=== PATIENT | female | born 1985 | race Caucasian/White ===

== ENCOUNTER 2021-07-29 08:10 | Emergency (ER) | payer OTHER, SELFPAY ==
[2021-07-29 08:14] VITALS: BP 125/78; PULSE 96; RESP 16; TEMP 37.1; O2SAT 99
--- NOTE | 2021-07-29 08:52 | ED.URI ---
HPI - URI/Sore Throat General Chief Complaint: Upper Respiratory Infection Stated Complaint: sore throat Time Seen by Provider: 07/29/21 08:25 Source: patient and RN notes reviewed Mode of arrival: ambulatory Limitations: no limitations History of Present Illness HPI Narrative: Patient presents today with a 2-day history of body aches, sore throat, nasal congestion. Denies fever, cough, sick contacts. She has been taking NyQuil without relief. History of tonsillectomy and adenoidectomy. Denies flu or COVID-19 vaccine. She currently rates her sore throat 03/11. MD elicited complaint: sore throat Related Data Home Medications Medication Instructions Recorded Confirmed citalopram 40 mg PO DAILY 08/27/19 07/29/21 Allergies Allergy/AdvReac Type Severity Reaction Status Date / Time fluconazole Allergy Intermediate Rash Verified 08/27/19 13:13 prednisone Allergy Intermediate Other Verified 08/27/19 13:13 sulfamethizole Allergy Unknown Rash Verified 08/27/19 13:13 sulfamethoxazole Allergy Unknown rash Verified 08/27/19 13:13 trimethoprim Allergy Unknown Rash Verified 08/27/19 13:13 Review of Systems Review of Systems: CONSTITUTIONAL: Denies fever, chills, or sweats.+ Body aches EYES: Denies visual changes, redness, or discharge. ENT: Denies rhinorrhea, or otalgia.+ Sore throat, congestion CARDIOVASCULAR: Denies chest pain, palpitations, or edema. RESPIRATORY: Denies cough or dyspnea. GASTROINTESTINAL: Denies abdominal pain, nausea, vomiting, or diarrhea. GENITOURINARY: Denies dysuria or hematuria. SKIN: Denies rash, itching, or wounds. MUSCULOSKELETAL: Denies back pain, joint pain, or myalgia. NEUROLOGIC: Denies headache, numbness, tingling, or weakness. PSYCH: Denies depression or anxiety. [facility] Surgical History Surgical History (Updated 07/29/21 @ 08:54 by Sandrita Orta, SHANEL, WILL) H/O adenoidectomy Hx of tonsillectomy Family History Family History Grandparent Family history of lung cancer Mother Family history of malignant neoplasm of breast in first degree relative Social History Social History Smoking status: Never smoker Alcohol intake: never Comments At time of signature, I have reviewed and agree with nursing past medical, surgical, social and family history unless otherwise noted. Please see nursing chart for further information. There is no relevant family history pertinent to the presenting complaint Exam Narrative: GENERAL: Mildly ill-appearing, well-nourished, and in no acute distress. HEAD: Normocephalic, atraumatic. EYES: EOMI. No redness or drainage. Conjunctivae normal. ENT: Mucous membranes pink and moist. Nares clear. No rhinorrhea. TMs normal bilaterally. Throat mildly erythematous without edema or exudate. Uvula midline. NECK: Normal AROM. Supple. Bilateral anterior cervical chain lymphadenopathy. CHEST: No respiratory distress. Clear to auscultation. HEART: Regular rate and rhythm. No murmur appreciated. Normal peripheral pulses. EXTREMITIES: Normal range of motion. No edema. SKIN: Warm, dry, no rash. Capillary refill normal. Normal skin turgor. NEURO: No focal deficits. Alert and oriented x3. Gait steady. PSYCH: Normal affect. No signs of depression or anxiety. Course Vital Signs Vital signs: Vital Signs Temperature 98.7 F 07/29/21 08:14 Pulse Rate 96 07/29/21 08:14 Respiratory Rate 16 07/29/21 08:14 Blood Pressure 125/78 07/29/21 08:14 Pulse Oximetry 99 07/29/21 08:14 Temperature 98.7 F 07/29/21 08:14 Pulse Rate 96 07/29/21 08:14 Respiratory Rate 16 07/29/21 08:14 Blood Pressure 125/78 07/29/21 08:14 Pulse Oximetry 99 07/29/21 08:14 Reviewed. Pt has been instructed to follow up with her PCP regarding her elevated blood pressure today. MDM - URI/Sore Throat Differential Diagnosis Differential diagno
== END 2021-07-29 09:08 | disposition home or self-care (01) ==
PROVIDERS: Emergency Provider Nurse Practitioner; PCP Nurse Practitioner Family
DX: J02.9 Acute pharyngitis, unspecified (principal); F41.9 Anxiety disorder, unspecified; F32.A Depression, unspecified
CPT/HCPCS: 87081; 87880; 99213; G0463

== ENCOUNTER 2023-03-31 16:41 | Emergency (ER) | payer OTHER, SELFPAY ==
[2023-03-31 16:48] VITALS: BP 110/65; PULSE 89; RESP 18; TEMP 37.1; O2SAT 98
--- NOTE | 2023-03-31 17:24 | ED.URI ---
HPI - URI/Sore Throat General Chief Complaint: Upper Respiratory Infection Stated Complaint: Sore Throat Source: patient and RN notes reviewed History of Present Illness HPI Narrative: 37-year-old female presents to urgent care with complaints of sore throat x5 days. Patient reports allergy symptoms that she is taking cetirizine for. Denies any fevers, chills, vomiting, chest pain, shortness of breath, ear pain, congestion, or headache. Patient has taken Tylenol for symptoms. Related Data Home Medications Medication Instructions Recorded Confirmed citalopram 40 mg tablet 40 mg PO DAILY 08/27/19 03/31/23 cetirizine 10 mg capsule 10 mg PO DAILY 03/31/23 03/31/23 Allergies Allergy/AdvReac Type Severity Reaction Status Date / Time fluconazole Allergy Intermediate Rash Verified 03/31/23 17:10 prednisone Allergy Intermediate Other Verified 03/31/23 17:10 sulfamethizole Allergy Unknown Rash Verified 03/31/23 17:10 sulfamethoxazole Allergy Unknown rash Verified 03/31/23 17:10 trimethoprim Allergy Unknown Rash Verified 03/31/23 17:10 Review of Systems Review of Systems: Pertinent positives and pertinent negatives per HPI. [facility] Surgical History Surgical History (Updated 07/29/21 @ 08:54 by Sandrita Orta, [facility], ) H/O adenoidectomy Hx of tonsillectomy Family History Family History (Reviewed 07/29/21 @ 08:54 by Sandrita Orta, [facility], ) Grandparent Family history of lung cancer Mother Family history of malignant neoplasm of breast in first degree relative Social History Social History (Reviewed 07/29/21 @ 08:54 by Sandrita Orta, [facility], ) Smoking status: Never smoker Alcohol intake: never Comments At the time of my signature, I reviewed and agree with the nursing past medical, surgical, social, and family history. There is no relevant family history pertinent to the patient complaint. Exam Narrative: GENERAL: This is a well-nourished, well-developed patient, in no apparent distress. HEAD: normocephalic, atraumatic. EYES: Sclera clear/white. Vision is grossly intact. EARS: External ears normal, auditory canals clear and without drainage, TMs normal without perforation. Hearing grossly intact. NOSE: External nose normal with no obvious nasal discharge, nares without redness, no rhinorrhea. THROAT: Mucous membranes moist, posterior pharynx with NECK: Neck supple, non-tender with mild lymphadenopathy CARDIOVASCULAR: Regular rate RESPIRATORY: No respiratory distress SKIN: warm, intact with no suspicious lesions or rash, good texture and turgor. NEURO: awake, alert, and oriented to person, place and time. There were no obvious focal neurologic abnormalities. EXTREMITIES: No clubbing, cyanosis, or edema. No joint tenderness, effusion, or edema noted. BACK: Nontender without deformity or crepitus. No flank tenderness. Course Course Level of Care: Express Care Visit Vital Signs Vital signs: Vital Signs Temperature 98.8 F 03/31/23 16:48 Pulse Rate 89 03/31/23 16:48 Respiratory Rate 18 03/31/23 16:48 Blood Pressure 110/65 03/31/23 16:48 Pulse Oximetry 98 03/31/23 16:48 Oxygen Delivery Room Air 03/31/23 16:48 Temperature 98.8 F 03/31/23 16:48 Pulse Rate 89 03/31/23 16:48 Respiratory Rate 18 03/31/23 16:48 Blood Pressure 110/65 03/31/23 16:48 Pulse Oximetry 98 03/31/23 16:48 Oxygen Delivery Room Air 03/31/23 16:48 Reviewed MDM - URI/Sore Throat MDM Narrative Medical decision making narrative: Rapid strep is negative in the office; however we will send to the lab for confirmation; there is a small percentage chance that it can come back positive; if it is, we will call you in 2-3days; and your prescription will be call in to your pharmacy. However, there is NO indication for antibiotic at this time. -Increase your fluids and Vitamin C. -Oral rinses such as: Salt water gargles and/or may use topical anesthetic (eg. Chloraseptic spray) or l
== END 2023-03-31 17:35 | disposition home or self-care (01) ==
PROVIDERS: Emergency Provider Nurse Practitioner Family; PCP Nurse Practitioner Family
DX: J02.9 Acute pharyngitis, unspecified (principal)
CPT/HCPCS: 87081; 87880; 99213; G0463

== ENCOUNTER 2023-09-28 15:03 | Emergency (ER) | payer OTHER, SELFPAY ==
--- NOTE | 2023-09-28 15:08 | ED.BACK ---
HPI - Back Pain/Injury General Chief Complaint: Back Pain/Injury Stated Complaint: lower back pain Time Seen by Provider: 09/28/23 15:08 Source: patient Mode of arrival: ambulatory Limitations: no limitations History of Present Illness HPI Narrative: Patient is a 38-year-old female who presents with low back pain that started Monday. Patient denies any injury to back. Patient has been taking 800 mg of ibuprofen 3 times a day with no relief. Patient states it is now painful to walk. Patient denies any loss of bowel or bladder, denies any numbness, tingling or weakness to legs. Related Data Home Medications Medication Instructions Recorded Confirmed citalopram 40 mg tablet 40 mg PO DAILY 08/27/19 03/31/23 cetirizine 10 mg capsule 10 mg PO DAILY 03/31/23 03/31/23 Strattera 09/28/23 montelukast 10 mg tablet mg 09/28/23 Allergies Allergy/AdvReac Type Severity Reaction Status Date / Time fluconazole Allergy Intermediate Rash Verified 09/28/23 15:06 sulfamethizole Allergy Unknown Rash Verified 09/28/23 15:06 sulfamethoxazole Allergy Unknown rash Verified 09/28/23 15:06 trimethoprim Allergy Unknown Rash Verified 09/28/23 15:06 Review of Systems Review of Systems: All systems reviewed & are unremarkable except as noted in HPI and below Constitutional: Constitutional: Denies body ache(s), Denies chills, Denies fatigue, Denies fever(s), Denies headache(s), Denies malaise and Denies weakness Eyes: Eyes: Denies blurry vision, Denies irritation and Denies loss of vision ENT: Denies otalgia, Denies headache(s), Denies nasal discharge, Denies sinus pain and Denies sore throat Cardiovascular: Cardiovascular: Denies chest pain, Denies irregular heart rhythm and Denies dyspnea Respiratory: Respiratory: Denies dyspnea Gastrointestinal: Gastrointestinal: Denies abdominal pain, Denies melena, Denies hematochezia, Denies diarrhea, Denies nausea and Denies vomiting Musculoskeletal: Musculoskeletal: Reports back pain, Denies myalgias and Denies arthralgias Integumentary/Breasts: Skin/Breast: Denies pruritus and Denies rash Neurologic: Denies headache(s), Denies loss of vision and Denies weakness Psychiatric: Psychiatric: Reports no additional psychiatric complaints Endocrine: Endocrine: Denies fatigue PMFSH Surgical History Surgical History H/O adenoidectomy Hx of tonsillectomy Family History Family History Grandparent Family history of lung cancer Mother Family history of malignant neoplasm of breast in first degree relative Social History Social History Smoking status: Never smoker Alcohol intake: never Comments At time of signature, agree with nursing past medical, surgical, social and family history. There is no relevant family history pertinent to the presenting complaint. Exam Const: General: cooperative, healthy appearing, comfortable, no acute distress and well nourished Nutritional Appearance: well nourished Orientation/consciousness: patient oriented x3 Limitations: no limitations HENMT: Head: normal to inspection, normocephalic and atraumatic Ears: hearing grossly normal bilaterally and external ears normal Face/Nose/Sinus: Normal external nose present, normal facial exam and face symmetric Face and sinus: normal facial exam and face symmetric Mouth: Yes lip normal Eyes: General: appearance normal, both eyes and all related structures Alignment and Position: alignment normal and position normal Periorbital: periorbital findings normal Eyelids: eyelids normal Pupils: Equal, round and reactive pupils present EOM: EOMs intact bilaterally Neck: Neck: normal visual inspection, full ROM and supple Chest: Chest palpation & inspection: normal inspection of the chest Resp: Effort & Inspection: normal respiratory effort and able to
[2023-09-28 15:10] VITALS: BP 123/77; PULSE 88; RESP 16; TEMP 36.8; O2SAT 99
== END 2023-09-28 16:35 | disposition home or self-care (01) ==
PROVIDERS: Emergency Provider Nurse Practitioner Family; PCP Nurse Practitioner Family
DX: M54.16 Radiculopathy, lumbar region (principal); Z79.899 Other long term (current) drug therapy
CPT/HCPCS: 99213; G0463

== ENCOUNTER 2024-05-12 10:29 | Emergency (ER) | payer OTHER, SELFPAY ==
--- NOTE | 2024-05-12 10:31 | ED.URI ---
HPI - URI/Sore Throat General Chief Complaint: Upper Respiratory Infection Stated Complaint: throat pain Time Seen by Provider: 05/12/24 10:31 Source: patient Mode of arrival: ambulatory Limitations: no limitations History of Present Illness HPI Narrative: Shauna is a 38-year-old female patient presenting to the clinic today with complaints of a sore throat x 1 days. She reports she has had nasal congestion, body aches, and cough. History of T&A. MD elicited complaint: cough, sore throat, nasal congestion and other (Body aches) Related Data Home Medications Medication Instructions Recorded Confirmed citalopram 40 mg tablet 40 mg PO DAILY 08/27/19 05/12/24 Allergies Allergy/AdvReac Type Severity Reaction Status Date / Time fluconazole Allergy Intermediate Rash Verified 05/12/24 10:36 sulfamethizole Allergy Intermediate Rash Verified 05/12/24 10:36 sulfamethoxazole Allergy Intermediate rash Verified 05/12/24 10:36 trimethoprim Allergy Intermediate Rash Verified 05/12/24 10:36 Review of Systems Review of Systems: Pertinent positives per HPI. Patient denies any fever, chills, rash, headache, visual changes, dizziness, shortness of breath, chest pain, palpitations, nausea, vomiting, diarrhea, constipation, abdominal pain, or any urinary issues. PMFSH Surgical History Surgical History H/O adenoidectomy Hx of tonsillectomy Family History Family History Grandparent Family history of lung cancer Mother Family history of malignant neoplasm of breast in first degree relative Social History Social History Smoking status: Never smoker Alcohol intake: never Comments At the time of my signature, I reviewed and agree with the nursing past medical, surgical, social, and family history. There is no relevant family history pertinent to the patient complaint. Exam Narrative: General: Well-developed, well nourished, in no apparent distress Head: Normocephalic, atraumatic Eyes: Pupils equally round and reactive to light bilaterally, EOM intact, sclera and conjunctive clear, no discharge, lids normal Ears: TMs intact and congested, ear canals clear, no drainage, grossly hearing normal. Nose: Nares patent, clear nasal discharge, no inflammation, no sinus tenderness. Mouth: Oral pharynx red without lesions or masses, good dentition, MMM. Neck: Supple, trachea midline, enlargement of anterior cervical nodes, no thyroid masses or goiter palpable. Cardio: Regular rate and rhythm, s1 and s2 normal, no murmur appreciated. Resp: Clear to auscultation bilaterally, no rhonchi, rales, wheezing or rubs Course Course Emergency Course: Portions of this record may have been created with voice recognition software. Level of Care: Express Care Visit Vital Signs Vital signs: Vital signs reviewed MDM - URI/Sore Throat MDM Narrative Medical decision making narrative: At the time of visit patient is resting comfortably on the exam table. Patient appears to be nontoxic. Labs: Strep test was obtained and is positive in the clinic today. Plan: I suspect patient has strep pharyngitis. Supportive measures were discussed with the patient and they voiced understanding discharge instructions and agrees to treatment plan. Return precautions reviewed Differential Diagnosis Differential diagnosis: Likely upper respiratory infection, otitis media, sinusitis, viral infection, bronchitis, influenza, pharyngitis and other Discharge Plan Discharge Clinical Impression: Strep pharyngitis Patient Disposition: Home, Self-Care Condition: Stable Instructions: Antibiotic Form, Strep Throat (ED) Additional Instructions: Strep test was positive in the clinic today. Change her toothbrush in 24 hours after initiation of the antibiotics Take pre
[2024-05-12 10:41] VITALS: BP 115/77; PULSE 79; RESP 16; TEMP 37.1; O2SAT 99
== END 2024-05-12 10:56 | disposition home or self-care (01) ==
PROVIDERS: Emergency Provider Nurse Practitioner Family; PCP Nurse Practitioner Family
DX: J02.0 Streptococcal pharyngitis (principal); F41.9 Anxiety disorder, unspecified; F32.A Depression, unspecified
CPT/HCPCS: 87880; 99213; G0463

== ENCOUNTER → 2024-06-10 13:57 | Outpatient (CLI) | payer OTHER, SELFPAY ==
--- NOTE | ~2024-06-10 | XR_ITS ---
EXAMINATION: XR lumbar spine 2-3V DATE: 06/10/2024 14:41 INDICATION: Low back pain. TECHNIQUE: 3 views of lumbar spine were obtained. COMPARISON: None. FINDINGS: There is 3 degrees dextrocurvature of lumbar spine. Vertebral body heights are normal. Ther e is mildly decreased disc height at L5-S1. There are endplate osteophyte at multiple levels. There i s multilevel mild to moderate facet joint osteoarthritis. Surgical clips in the right upper quadrant are likely from cholecystectomy. Bilateral tubal ligation clips are noted. The left-sided clip is in abnormal position. IMPRESSION: 1. Mild lumbar spondylosis. Reviewed, dictated and finalized at location A. IMPRESSION: 1. Mild lumbar spondylosis.
--- NOTE | ~2024-06-10 | XR_ITS ---
EXAMINATION: XR hip RT min 2V DATE: 06/10/2024 14:56 INDICATION: Right hip pain. TECHNIQUE: 2 views of right hip were obtained. COMPARISON: None. FINDINGS: Alignment is normal. No fracture. Right hip joint space is normal. A right sided tube ligat ion clip is noted. IMPRESSION: 1. Normal right hip. Reviewed, dictated and finalized at location A. IMPRESSION: 1. Normal right hip.
== END ==
PROVIDERS: PCP Nurse Practitioner Family; Visit Provider Nurse Practitioner Family
DX: M43.06 Spondylolysis, lumbar region (principal)
CPT/HCPCS: 72100; 73502

== ENCOUNTER 2025-02-23 10:53 | Emergency (ER) | payer OTHER, SELFPAY ==
--- NOTE | ~2025-02-23 | XR_ITS ---
CHEST RADIOGRAPH, PA AND LATERAL CLINICAL HISTORY: wheezing, cough for 4 days, smoker . COMPARISON: None available TECHNIQUE: PA and lateral views of the chest. FINDINGS The cardiomediastinal silhouette is unremarkable. The lungs are clear. Visualized osseous structures and soft tissues are unremarkable. IMPRESSION: No focal infiltrate or effusion. Reviewed, dictated and finalized at location A.
--- OUTSIDE RECORDS SUMMARY | 2025-02-23 10:56 | XMS_ITS | Encounter Summary ---
Author Name [facility] [place] [facility] [place] Address [address] [place] [address] Support Name Relationship Address Phone FUAD CHRISTINE Next of Kin Unknown CHRISTINE MERIDA Emergency Contact Unknown Insurance Providers: All historical and current Section Date Range: From patient's date of to the date document was created. This section includes the names of all active insurance providers for the patient. Insurance Provider Type of Coverage Plan Name Start of Policy Coverage End of Policy Coverage Group Number Member ID Insurance Provider's Telephone Number Policy Montoya's Name Patient's Relationship to Policy Montoya MEDICAID (WNR) MEDICAID MEDIC AID Aug 02, 2015 MEDICAI D [id number] STACIE JENNIFER PATIENT [facility] (WNR) MEDICAID MEDIC AID [facility] (WNR) Dec 01, 2023 MEDICAI D [id number] STACIE JENNIFER PATIENT Selected Encounter This section includes the information on record at [place] for the Encounter. Date/Time Encounter Type Encounter Description Reason Provider Source Aug 25, 2024 07:45 AM SELF-MGMT EDUC/TRAIN 5-8 PT SUBSTANCE USE DISORDR GRP ICD-10-CM F10.90 Alcohol use, unspecified, uncomplicated KEYUR COKER Encounter Template Text not used by [place] Assessments - Encounter Diagnoses This section includes the primary and secondary diagnoses documented for the Encounter. Date/Time Primary/Secondary Diagnosis Diagnosis Name Provider Source Aug 25, 2024 08:09 AM PRIMARY Alcohol use, unspecified, uncomplicated JOSE COKER [facility] Plan of Treatment: Future Appointments (+ 6 months) and Future Tests (+/- 45 days) The Plan of Treatment section includes future care activities for the patient from all [place] [facility]. This section includes future appointments and future orders which are active, pending or scheduled. Future Appointments This section includes appointments that were scheduled to occur 6 months from the date of the Encounter, up to a maximum of 20 appointments. The data comes from all [place] treatment [facility]. Appointment Date/Time Appointment Type Appointme nt Facility Name Sep 10, 2024 12:30 PM AMBULATORY - PSYCHIATRY [facility] Sep 12, 2024 06:00 PM AMBULATORY - PSYCHIATRY [facility] Sep 17, 2024 06:00 PM AMBULATORY - PSYCHIATRY [facility] Sep 19, 2024 06:00 PM AMBULATORY - PSYCHIATRY [facility] Sep 26, 2024 06:00 PM AMBULATORY - PSYCHIATRY [facility] Oct 01, 2024 02:00 PM AMBULATORY - NONE [facility] Oct 09, 2024 03:00 PM AMBULATORY - MEDICINE [facility] Oct 16, 2024 01:00 PM AMBULATORY - PSYCHIATRY [facility] Oct 30, 2024 01:00 PM AMBULATORY - PSYCHIATRY [facility] Nov 27, 2024 01:00 PM AMBULATORY - PSYCHIATRY [facility] Dec 04, 2024 01:00 PM AMBULATORY - PSYCHIATRY [facility] Dec 11, 2024 01:00 PM AMBULATORY - PSYCHIATRY [facility] Dec 18, 2024 01:00 PM AMBULATORY - PSYCHIATRY [facility] Dec 25, 2024 01:00 PM AMBULATORY - PSYCHIATRY [facility] February 05, 2025 09:30 AM AMBULATORY - PSYCHIATRY [facility] Lab Results: +/- 30 days of the encounter This section includes the Chemistry and Hematology Lab Results on record with [place] for the patient. Radiology Reports and Pathology Reports are provided separately, in subsequent sections. Lab Results This section contains the Chemistry/Hematology Results that were resulted 30 days before or 30 daysafter the date of the Encounter. Date/Time Source Result Type Result - Unit Interpretation Reference Range Specimen Type Comment Sep 03, 2024 12:00 PM [facility] URINE DRUG SCREEN (STL) URINE Specimen Type: URINE Comment: The cut-off value for Fentanyl was laboratory developed and its performance characteristics confirmed by the [facility] laboratory thru method comparison with reference laboratory and medication chart review. The laboratory is regulated under CLIA as qualified to perform high-complexity testing. Fentanyl is used for clinical purposes in conjunction with other laboratory tests. Ordering Provider: DANIEL GOMEZ Report Released Date/Time: Sep 02, 2024 08:27 PM Reporting Lab: [facility] [phone] Performing Lab: [facility] [address] ETHANOL <10.0 mg/dL 0-9 AMPHET/METHAMPHETAMINE Negative ng/mL COCAINE METABOLITES Negative ng/mL BENZODIAZEPINES (STL) Negative ng/mL CANNABINOIDS POSITIVE ng/mL METHADONE Negative ng/mL OPIATES Negative ng/mL CREATININE URINE/OTHERS 110.1 mg/dL H 47.0 -110.0 OXYCODONE (CEBNO-HNO-MQ) Negative ng/mL BUPRENORPHINE (STL-PB-MA) Negative ng/mL FENTANYL (STL-PB) Negative ng/mL Aug 25, 2024 02:03 PM [facility] URINE DRUG SCREEN (STL) URINE Specimen Type: URINE Comment: The cut-off value for Fentanyl was laboratory developed and its performance characteristics confirmed by the [facility] laboratory thru method comparison with reference laboratory and medication chart review. The laboratory is regulated under CLIA as qualified to perform high-complexity testing. Fentanyl is used for clinical purposes in conjunction with other laboratory tests. Ordering Provider: DANIEL GOMEZ Report Released Date/Time: Aug 24, 2024 07:24 PM Reporting Lab: [facility] [address] [facility] [address] Performing Lab: [facility] [address] [facility] [address] ETHANOL Negative mg/dL 0-20 AMPHET/METHAMPHETAMINE Negative ng/mL COCAINE METABOLITES Negative ng/mL BENZODIAZEPINES (STL) Negative ng/mL CANNABINOIDS POSITIVE ng/mL METHADONE Negative ng/mL OPIATES Negative ng/mL CREATININE URINE/OTHERS 39.0 mg/dL L 47-11 0 OXYCODONE (VELOU-OJU-YB) Negative ng/mL BUPRENORPHINE (STL-PB-MA) Negative ng/mL FENTANYL (STL-PB) Negative ng/mL Aug 20, 2024 07:13 AM [facility] URINALYSIS W/ CX REFLEX (STL-PB) URINE Specim en Type: URINE No comment entered. Ordering Provider: DANIEL GOMEZ Report Released Date/Time: Aug 19, 2024 11:04 AM Reporting Lab: [facility] [place] [address] Performing Lab: [facility] [place] [address] URINE COLOR Yellow Yellow U.BILIRUBIN Negative mg/dL Negative U.PH 6.0 5.0-8.0 URINE WBC/HPF 3 /[HPF] 0-5 URINE RBC/HPF 3 /[HPF] 0-5 APPEARANCE Clear Clear U.NITRITE Negative mg/dL Negative SQUAMOUS EPITH. 9 /[HPF] 0-5 MUCUS FEW /[LPF] Negative-Rare URN.GLUCOSE Normal mg/dL Negative URN.PROTEIN 20 mg/dL H URN.UROBILINOGEN Normal mg/dL Normal URN.BLOOD Negative mg/dL Negative-Trace URN.KETONES Negative mg/dL Negative-Trac e URN.LEUK.EST. 75 mg/dL H Negative-Trace URN.SPECIFIC GRAVITY 1.028 Aug 19, 2024 10:08 AM [facility] URINALYSIS (STL-PB) URINE Specimen Type: URIN E No comment entered. Ordering Provider: DANIEL GOMEZ Report Released Date/Time: Aug 16, 2024 03:45 PM Reporting Lab: [facility] [place] [address] Performing Lab: [facility] [place] [address] URINE COLOR Yellow Yellow U.BILIRUBIN Negative mg/dL Negative U.PH 6.0 5.0-8.0 URINE WBC/HPF 14 /[HPF] H 0-5 URINE RBC/HPF 5 /[HPF] 0-5 APPEARANCE Turbid Clear U.NITRITE Negative mg/dL Negative SQUAMOUS EPITH. 9 /[HPF] 0-5 MUCUS MOD /[LPF] Negative-Rare URN.GLUCOSE Normal mg/dL Negative URN.PROTEIN 30 mg/dL H URN.UROBILINOGEN 2 mg/dL H Normal URN.BLOOD Negative mg/dL Negative-Trace URN.KETONES Trace mg/dL Negative-Trace URN.LEUK.EST. 500 mg/dL H Negative-Trace URN.SPECIFIC GRAVITY 1.035 H Aug 19, 2024 10:08 AM [facility] TEST URINE (MA-STL) URINE Specimen Type: URINE No comment entered. Ordering Provider: DANIEL GOMEZ Report Released Date/Time: Aug 16, 2024 03:45 PM Reporting Lab: [facility] [phone] Performing Lab: [facility] [phone] Qualitative Test NEG NEGAT URBAN Aug 19, 2024 10:08 AM [facility] URINE DRUG SCREEN (STL) URINE Specimen Type: URINE Comment: The cut-off value for Fentanyl was laboratory developed and its performance characteristics confirmed by the [facility] laboratory thru method comparison with reference laboratory and medication chart review. The laboratory is regulated under CLIA as qualified to perform high-complexity testing. Fentanyl is used for clinical purposes in conjunction with other laboratory tests. Ordering Provider: DANIEL GOMEZ Report Released Date/Time: Aug 16, 2024 03:45 PM Reporting Lab: [facility] [phone] Performing Lab: [facility] [address] ETHANOL Negative mg/dL 0-20 AMPHET/METHAMPHETAMINE Negative ng/mL COCAINE METABOLITES Negative ng/mL BENZODIAZEPINES (STL) Negative ng/mL CANNABINOIDS POSITIVE ng/mL METHADONE Negative ng/mL OPIATES POSITIVE ng/mL CREATININE URINE/OTHERS 266.1 mg/dL H 47.0 -110.0 OXYCODONE (THNPY-REY-EG) Negative ng/mL BUPRENORPHINE (STL-PB-MA) Negative ng/mL FENTANYL (STL-PB) Negative ng/mL Aug 19, 2024 10:00 AM [facility] CBC BLOOD Specimen Type: BLOOD No comment entered. Ordering Provider: DANIEL GOMEZ Report Released Date/Time: Aug 16, 2024 03:45 PM Reporting Lab: [facility] [phone] Performing Lab: [facility] [place] [phone] WBC 12.7 10*3/uL H 3.6-11.2 RBC 4.19 10*6/uL 3.60-5.00 HGB 12.7 g/dL 11.0-14.9 HCT 37.7 32.6-43.4 MCV 90.0 fL 80.0-100.0 MCH 30.3 pg 27.0-34.0 MCHC 33.7 g/dL 33.0-36.0 PLT 418 10*3/uL H 150-400 MPV 10.2 fL 7.5-11.2 RDW 12.0 11.8-15.1 LYMPHOCYTES, AUTO % 21 MONOCYTES, AUTO % 7 NEUTROPHILS, AUTO % 63 EOSINOPHILS, AUTO % 7 BASOPHILS, AUTO % 1 LYMPHOCYTES, ABSOLUTE 2.69 10*3/uL 0.77- 4.50 MONOCYTES, ABSOLUTE 0.90 10*3/uL H 0.19-0. 80 NEUTROPHILS, ABSOLUTE 8.03 10*3/uL H 2.10- 8.00 EOSINOPHILS, ABSOLUTE 0.88 10*3/uL H 0.00- 0.60 BASOPHILS, ABSOLUTE 0.09 10*3/uL 0.00-0. 20 Aug 19, 2024 09:59 AM [facility] COMPREHENSIVE METABOLIC PANEL PLASMA Specimen Type: PLASMA Comment: No hemolysis noted. Ordering Provider: DANIEL GOMEZ Report Released Date/Time: Aug 16, 2024 03:45 PM Reporting Lab: [facility] [address] Performing Lab: [facility] [place] [phone] CREATININE 0.75 mg/dL 0.60-1.10 UREA NITROGEN 12.0 mg/dL 9.0-25.0 GLUCOSE 99 mg/dL 72-99 SODIUM 139 meq/L 136-145 POTASSIUM 4.2 meq/L 3.5-5.0 CHLORIDE 108 meq/L H 98-107 CARBON DIOXIDE 23 meq/L 22-31 CALCIUM 8.8 mg/dL 8.4-10.4 PROTEIN 6.5 g/dL 6.0-8.6 ALBUMIN 3.8 g/dL 3.4-5.0 TOTAL BILIRUBIN 0.1 mg/dL L 0.2-1.2 ALKALINE PHOSPHATASE 69 U/L 40-150 AST/SGOT 19 U/L 5-34 ALT/SGPT 25 U/L 8-40 EGFR (CKD-EPI 2020) 104.44 >60 Aug 19, 2024 09:59 AM [facility] PT/INR NEW (STL-MA) PLASMA Specimen Type: PLAS MA No comment entered. Ordering Provider: DANIEL GOMEZ Report Released Date/Time: Aug 16, 2024 03:45 PM Reporting Lab: [facility] [place] [address] Performing Lab: [facility] [place] [address] PROTIME 9.4 s 9.4-12.5 INR VALUE 0.8 {INR} Aug 19, 2024 09:59 AM [facility] ETHANOL SERUM/PLASMA (STL) PLASMA Specimen Typ e: PLASMA Comment: No hemolysis noted. Ordering Provider: DANIEL GOMEZ Report Released Date/Time: Aug 16, 2024 03:45 PM Reporting Lab: [facility] [phone] Performing Lab: [facility] [phone] ETHANOL SERUM/PLASMA (STL) <10.0 mg/dL 0 -10 Aug 19, 2024 09:59 AM [facility] GGT GAMMA-GT PLASMA Specimen Type: PLASM A No comment entered. Ordering Provider: DANIEL GOMEZ Report Released Date/Time: Aug 16, 2024 03:45 PM Reporting Lab: [facility] [address] [place] [address] Performing Lab: [facility] [address] [place] [address] GGT GAMMA-GT 14 [IU]/L 12-64 Aug 19, 2024 09:59 AM [facility] MAGNESIUM PLASMA Specimen Type: PLASM A Comment: No hemolysis noted. Ordering Provider: DANIEL GOMEZ Report Released Date/Time: Aug 16, 2024 03:45 PM Reporting Lab: [facility] [phone] Performing Lab: [facility] [phone] MAGNESIUM 2.1 mg/dL 1.6-2.6 Aug 19, 2024 09:59 AM [facility] CPK SERUM Specimen Type: SERUM No comment entered. Ordering Provider: DANIEL GOMEZ Report Released Date/Time: Aug 16, 2024 03:45 PM Reporting Lab: [facility] [phone] Performing Lab: [facility] [phone] CPK 37 U/L 29-168 Aug 19, 2024 09:59 AM [facility] HEP C Ab HCV Ab (STL) SERUM Specimen Type: SE RUM No comment entered. Ordering Provider: DANIEL GOMEZ Report Released Date/Time: Aug 16, 2024 03:45 PM Reporting Lab: [facility] [address] [place] [address] Performing Lab: [facility] [address] [place] [address] HEP C Ab HCV Ab (STL) Nonreactive Nonrea ctive Aug 19, 2024 09:59 AM [facility] HIV COMBO FOURTH GENERATION (STL) SERUM Speci men Type: SERUM No comment entered. Ordering Provider: DANIEL GOMEZ Report Released Date/Time: Aug 16, 2024 03:45 PM Reporting Lab: [facility] [address] [facility] [address] Performing Lab: [facility] [address] [facility] [address] HIV COMBO FOURTH GENERATION (STL) Nonreactive Nonreactive Encounter Notes: All associated encounter notes This section contains the clinical notes associated to the Encounter. Date/Time Encounter Note(s) Provider Source Aug 25, 2024 07:45 AM PSYCHIATRY GROUP C GURPREET NOTE: LOCAL TITLE: [facility] PSYCHIATRY GROUP NOTE STL STANDARD TITLE: PSYCHIATRY GROUP COUNSELING NOTE DATE OF NOTE: AUG 25, 2024@07:45 ENTRY DATE: AUG 25, 2024@08:05:18 AUTHOR: ANTONIETTA COKER EXP COSIGNER: URGENCY: STATUS: COMPLETED Discipline: Nursing Group Time: 729 Group Topics: Rules Review Group Content: Reviewed THANH Contract of Agreement (including the addendum), Agreement of Responsibility to Administer Self Medication, and Contract of Respect. Discussed specifically, while smoking to stay on the grass and keep the road clear for car traffic entering and leaving [facility] grounds. Also reminded veterans to keep cell phones in their pockets during group time. Veterans had an opportunity to ask questions and seek clarification. Encouraged veterans to inquire with staff if they had questions in the future. Group Goals: Achieved Patient Response: Actively Engaged Number of Patients in Group: / ANTONIETTA COKER RN REGISTERED NURSE Signed: 08/25/2024 08:16 ANTONIETTA COKER [facility]
--- OUTSIDE RECORDS SUMMARY | 2025-02-23 10:56 | XMS_ITS | Encounter Summary ---
Author Name [facility] [place] [facility] [place] Address [address] [place] [address] Support Name Relationship Address Phone FUAD CHRISTINE [...] MEDIC AID Aug 02, 2015 MEDICAI D [id number] [phone] STACIE AYEJENNIFER PATIENT [facility] (WNR) MEDICAID MEDIC AID [facility] (WNR) Dec 01, 2023 MEDICAI D [id number] STACIE JENNIFER PATIENT Selected Encounter This section includes the information on record at [place] for the Encounter. Date/Time Encounter Type Encounter Description Reason Provider Source Sep 03, 2024 07:00 PM SELF-MGMT EDUC/TRAIN 5-8 PT SUBSTANCE USE DISORDR GRP ICD-10-CM F12.20 Cannabis dependence, uncomplicated MUGOYA,ROSEMA RY K IHE Encounter Template Text not used by [facility] Assessments - Encounter Diagnoses This section includes the primary and secondary diagnoses documented for the Encounter. Date/Time Primary/Secondary Diagnosis Diagnosis Name Provider Source Sep 03, 2024 09:20 PM PRIMARY Cannabis dependence, uncomplicated MUGOYA,ROSEMAR Y K [facility] Sep 03, 2024 09:20 PM SECONDARY Opioid use, unspecified, uncomplicated MUGOYA,ROSEMAR Y K [facility] Plan of Treatment: Future Appointments (+ 6 months) and Future Tests (+/- 45 days) The Plan of Treatment section includes future care activities for the patient from [facility] [place] [facility] This section includes future appointments and future orders which are active, pending or scheduled. Future Appointments This section includes appointments that were scheduled to occur 6 months from the date of the Encounter, up to a maximum of 20 appointments. The data comes from all [place] treatment [facility]. Appointment Date/Time Appointment Type Appointme nt Facility Name Sep 10, 2024 12:30 PM AMBULATORY - PSYCHIATRY [facility] Sep 12, 2024 06:00 PM AMBULATORY - PSYCHIATRY [facility] Sep 17, 2024 06:00 PM AMBULATORY - PSYCHIATRY [facility] Sep 19, 2024 06:00 PM AMBULATORY - PSYCHIATRY [facility] Sep 26, 2024 06:00 PM AMBULATORY - PSYCHIATRY [facility] Oct 01, 2024 02:00 PM AMBULATORY - NONE [facility] Oct 09, 2024 03:00 PM AMBULATORY - MEDICINE [facility] Oct 16, 2024 01:00 PM AMBULATORY - PSYCHIATRY [facility] Oct 30, 2024 01:00 PM AMBULATORY - PSYCHIATRY [facility] Nov 27, 2024 01:00 PM AMBULATORY - PSYCHIATRY [facility] Dec 04, 2024 01:00 PM AMBULATORY - PSYCHIATRY [facility] Dec 11, 2024 01:00 PM AMBULATORY - PSYCHIATRY [facility] Dec 18, 2024 01:00 PM AMBULATORY - PSYCHIATRY [facility] Dec 25, 2024 01:00 PM AMBULATORY - PSYCHIATRY [facility] February 05, 2025 09:30 AM AMBULATORY - PSYCHIATRY [facility] Lab Results: +/- 30 days of the [...] Type Comment Sep 03, 2024 12:[address] [facility] URINE DRUG SCREEN (STL) URINE Specimen Type: URINE Comment: The cut-off value for Fentanyl was laboratory developed and its performance characteristics confirmed by the [facility] laboratory thru method comparison with reference laboratory and medication chart review. The laboratory is regulated under CLIA as qualified to perform high-complexity testing. Fentanyl is used for clinical purposes in conjunction with other laboratory tests. Ordering Provider: DANIEL GOMEZ Report Released Date/Time: Sep 02, 2024 08:27 PM Reporting Lab: [facility] [id number] Performing Lab: [facility] [phone] ETHANOL <10.0 mg/dL 0-9 AMPHET/METHAMPHETAMINE Negative ng/mL COCAINE METABOLITES Negative ng/mL BENZODIAZEPINES (STL) Negative ng/mL CANNABINOIDS POSITIVE ng/mL METHADONE Negative ng/mL OPIATES Negative ng/mL CREATININE URINE/OTHERS 110.1 mg/dL H 47.0 -110.0 OXYCODONE ([id number]) Negative ng/mL BUPRENORPHINE (STL-PB-MA) Negative ng/mL FENTANYL (STL-PB) Negative ng/mL Aug 25, 2024 02:[address] [facility] URINE DRUG SCREEN (STL) URINE Specimen Type: URINE Comment: The cut-off value for Fentanyl was laboratory developed and its performance characteristics confirmed by the [facility] laboratory thru method comparison with reference laboratory and medication chart review. The laboratory is regulated under CLIA as qualified to perform high-complexity testing. Fentanyl is used for clinical purposes in conjunction with other laboratory tests. Ordering Provider: DANIEL GOMEZ Report Released Date/Time: Aug 24, 2024 07:24 PM Reporting Lab: [facility] [address] [facility] [phone] Performing Lab: [facility] [address] [phone] ETHANOL Negative mg/dL 0-20 AMPHET/METHAMPHETAMINE Negative ng/mL COCAINE METABOLITES Negative ng/mL BENZODIAZEPINES (STL) Negative ng/mL CANNABINOIDS POSITIVE ng/mL METHADONE Negative ng/mL OPIATES Negative ng/mL CREATININE URINE/OTHERS 39.0 mg/dL L 47-11 0 OXYCODONE ([id number]) Negative ng/mL BUPRENORPHINE (STL-PB-MA) Negative ng/mL FENTANYL (STL-PB) Negative ng/mL Aug 20, 2024 07:[address] [facility] URINALYSIS W/ CX REFLEX (STL-PB) URINE Specim en Type: URINE No comment entered. Ordering Provider: DANIEL GOMEZ Report Released Date/Time: Aug 19, 2024 11:04 AM Reporting Lab: [facility] [place] [address] Performing Lab: [facility] [place] [address] URINE COLOR Yellow Yellow U.BILIRUBIN Negative mg/dL [...] GRAVITY 1.028 Aug 19, 2024 10:[address] [facility] URINALYSIS (STL-PB) URINE Specimen Type: URIN E No comment entered. Ordering Provider: DANIEL GOMEZ Report Released Date/Time: Aug 16, 2024 03:45 PM Reporting Lab: [facility] [place] [address] Performing Lab: [facility] [place] [phone] URINE COLOR Yellow Yellow U.BILIRUBIN Negative mg/dL [...] 1.035 H Aug 19, 2024 10:[address] [facility] TEST URINE (MA-STL) URINE Specimen Type: URINE No comment entered. Ordering Provider: DANIEL GOMEZ Report Released Date/Time: Aug 16, 2024 03:45 PM Reporting Lab: [facility] [address] Performing Lab: [facility] [phone] Qualitative Test NEG NEGAT URBAN Aug 19, 2024 10:[address] [facility] URINE DRUG SCREEN (STL) URINE Specimen Type: URINE Comment: The cut-off value for Fentanyl was laboratory developed and its performance characteristics confirmed by the [facility] laboratory thru method comparison with reference laboratory and medication chart review. The laboratory is regulated under CLIA as qualified to perform high-complexity testing. Fentanyl is used for clinical purposes in conjunction with other laboratory tests. Ordering Provider: DANIEL GOMEZ Report Released Date/Time: Aug 16, 2024 03:45 PM Reporting Lab: [facility] [address] Performing Lab: [facility] [address] ETHANOL Negative mg/dL 0-20 AMPHET/METHAMPHETAMINE Negative ng/mL COCAINE METABOLITES Negative ng/mL BENZODIAZEPINES (STL) Negative ng/mL CANNABINOIDS POSITIVE ng/mL METHADONE Negative ng/mL OPIATES POSITIVE ng/mL CREATININE URINE/OTHERS 266.1 mg/dL H 47.0 -110.0 OXYCODONE ([id number]) Negative ng/mL BUPRENORPHINE (STL-PB-MA) Negative ng/mL FENTANYL (STL-PB) Negative ng/mL Aug 19, 2024 10:00 AM [facility] CBC BLOOD Specimen Type: BLOOD No comment entered. Ordering Provider: DANIEL GOMEZ Report Released Date/Time: Aug 16, 2024 03:45 PM Reporting Lab: [facility] [phone] Performing Lab: [facility] [address] WBC 12.7 10*3/uL H 3.6-11.2 RBC 4.19 [...] 0.00-0. 20 Aug 19, 2024 09:[address] [facility] COMPREHENSIVE METABOLIC PANEL PLASMA Specimen Type: PLASMA Comment: No hemolysis noted. Ordering Provider: DANIEL GOMEZ Report Released Date/Time: Aug 16, 2024 03:45 PM Reporting Lab: [facility] [address] Performing Lab: [facility] [address] CREATININE 0.75 mg/dL 0.60-1.10 UREA NITROGEN 12.0 [...] 104.44 >60 Aug 19, 2024 09:[address] [facility] PT/INR NEW (STL-MA) PLASMA Specimen Type: PLAS MA No comment entered. Ordering Provider: DANIEL GOMEZ Report Released Date/Time: Aug 16, 2024 03:45 PM Reporting Lab: [facility] [place] [address] Performing Lab: [facility] [place] [address] PROTIME 9.4 s 9.4-12.5 INR VALUE 0.8 {INR} Aug 19, 2024 09:[address] [facility] ETHANOL SERUM/PLASMA (STL) PLASMA Specimen Typ e: PLASMA Comment: No hemolysis noted. Ordering Provider: DANIEL GOMEZ Report Released Date/Time: Aug 16, 2024 03:45 PM Reporting Lab: [facility] [place] [address] Performing Lab: [facility] [place] [address] ETHANOL SERUM/PLASMA (STL) <10.0 mg/dL 0 -10 Aug 19, 2024 09:[address] [facility] GGT GAMMA-GT PLASMA Specimen Type: PLASM A No comment entered. Ordering Provider: DANIEL GOMEZ Report Released Date/Time: Aug 16, 2024 03:45 PM Reporting Lab: [facility] [address] [facility] [address] Performing Lab: [facility] [address] [facility] [address] GGT GAMMA-GT 14 [IU]/L 12-64 Aug 19, 2024 09:[address] [facility] MAGNESIUM PLASMA Specimen Type: PLASM A Comment: No hemolysis noted. Ordering Provider: DANIEL GOMEZ Report Released Date/Time: Aug 16, 2024 03:45 PM Reporting Lab: [facility] [address] Performing Lab: [facility] [phone] MAGNESIUM 2.1 mg/dL 1.6-2.6 Aug 19, 2024 09:59 AM [facility] CPK SERUM Specimen Type: SERUM No comment entered. Ordering Provider: DANIEL GOMEZ Report Released Date/Time: Aug 16, 2024 03:45 PM Reporting Lab: [facility] [address] Performing Lab: [facility] [phone] CPK 37 U/L 29-168 Aug 19, 2024 09:[address] [facility] HEP C Ab HCV Ab (STL) SERUM Specimen Type: SE RUM No comment entered. Ordering Provider: DANIEL GOMEZ Report Released Date/Time: Aug 16, 2024 03:45 PM Reporting Lab: [place] [id number] [facility] [address] Performing Lab: [address] [address] HEP C Ab HCV Ab (STL) Nonreactive Nonrea ctive Aug 19, 2024 09:[address] [facility] HIV COMBO FOURTH GENERATION (STL) SERUM Speci men Type: SERUM No comment entered. Ordering Provider: DANIEL GOMEZ Report Released Date/Time: Aug 16, 2024 03:45 PM Reporting Lab: [facility] [address] [facility] [address] Performing Lab: [facility] [address] [facility] [address] HIV COMBO FOURTH GENERATION (STL) Nonreactive Nonreactive Encounter Notes: All associated encounter notes This section contains the clinical notes associated to the Encounter. Date/Time Encounter Note(s) Provider Source Sep 03, 2024 09:00 PM PSYCHIATRY GROUP C GURPREET NOTE: LOCAL TITLE: [facility] PSYCHI[facility]RY GROUP NOTE STL STANDARD TITLE: PSYCHIATRY GROUP COUNSELING NOTE DATE OF NOTE: SEP 03, 2024@21:00 ENTRY DATE: SEP 03, 2024@21:01:45 AUTHOR: JED MONTERO EXP COSIGNER: URGENCY: STATUS: COMPLETED Discipline: Nursing Group Time: Group Topic: Substance Abuse Group Content: was one of ( Twenty-Three) 23 who attended this evening' wrap-up group. All the veterans were thanked for their courage in coming into the program and were also thanked for their service. Random questions were answered, and unit rules were reiterated. Serenity prayer was said by those wishing to participate and snacks were given out. Group Goal: The goal of wrap up group is to end the day on a positive note, share and reflect on the day's events. Emphasized the role daily structure plays in their lives. Goal achieved. Group Response: Actively engaged. Number of Patients Attending Group:23 Diagnosis: ESTELA /es/ OLIVER SOFIA,RN Registered Nurse, [address] Signed: 09/03/2024 21:24 JED MONTERO Adrian MARTINEZ ASA
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
--- OUTSIDE RECORDS SUMMARY | 2025-02-23 10:56 | XMS_ITS | Encounter Summary ---
Author Name [facility] [place] [facility] [place] [facility] [place] Address [address] [place] [address] Support Name Relationship Address Phone [employer] CHRISTINE Next of Kin Unknown CHRISTINE MERIDA Emergency Contact Unknown [phone] Insurance Providers: All historical and current Section [...] MEDIC AID Aug 02, 2015 MEDICAI D [id number] [phone] STACIE JENNIFER PATIENT [facility] (WNR) MEDICAID MEDIC AID [facility] (WNR) Dec 01, 2023 MEDICAI D [id number] STACIE JENNIFER PATIENT Selected Encounter This section includes the information on record at [place] for the Encounter. Date/Time Encounter Type Encounter Description Reason Provider Source Sep 04, 2024 09:00 PM SELF-MGMT EDUC/TRAIN 5-8 PT SUBSTANCE USE DISORDR GRP ICD-10-CM F12.20 Cannabis dependence, uncomplicated MUGOYA,ROSEMA RY K IHE Encounter Template Text not used by [facility] Assessments - Encounter Diagnoses This section includes the primary and secondary diagnoses documented for the Encounter. Date/Time Primary/Secondary Diagnosis Diagnosis Name Provider Source Sep 04, 2024 10:23 PM PRIMARY Cannabis dependence, uncomplicated MUGOYA,ROSEMAR Y K [facility] Sep 04, 2024 10:23 PM SECONDARY Opioid use, unspecified, uncomplicated MUGOYA,ROSEMAR Y K [facility] Plan of Treatment: Future Appointments (+ 6 months) and Future Tests (+/- 45 days) The Plan of Treatment section includes future care activities for the patient [facility] [place] [facility] This section includes future appointments and future orders which are active, pending or scheduled. Future Appointments This section includes appointments that were scheduled to occur 6 months from the date of the Encounter, up to a maximum of 20 appointments. The data comes from all [place] [facility]. Appointment Date/Time Appointment Type Appointme nt Facility Name Sep 10, 2024 12:30 PM AMBULATORY - PSYCHIATRY [facility] Sep 12, 2024 06:00 PM AMBULATORY - PSYCHIATRY [facility] Sep 17, 2024 06:00 PM AMBULATORY - PSYCHIATRY [facility] Sep 19, 2024 06:00 PM AMBULATORY - PSYCHIATRY [facility] Sep 26, 2024 06:00 PM AMBULATORY - PSYCHIATRY [facility] Oct 01, 2024 02:00 PM AMBULATORY - NONE [facility] Oct 09, 2024 03:00 PM AMBULATORY - MEDICINE [facility] Oct 16, 2024 01:00 PM AMBULATORY - PSYCHIATRY [facility] Oct 30, 2024 01:00 PM AMBULATORY - PSYCHIATRY [facility] Nov 27, 2024 01:00 PM AMBULATORY - PSYCHIATRY [facility] Dec 04, 2024 01:00 PM AMBULATORY - PSYCHIATRY [facility] Dec 11, 2024 01:00 PM AMBULATORY - PSYCHIATRY [facility] Dec 18, 2024 01:00 PM AMBULATORY - PSYCHIATRY [facility] Dec 25, 2024 01:00 PM AMBULATORY - PSYCHIATRY [facility] February 05, 2025 09:30 AM AMBULATORY - PSYCHIATRY [facility] Lab Results: +/- 30 days of the encounter This section includes the Chemistry and Hematology Lab Results on record with [place] for the patient. Radiology Reports and Pathology Reports are provided separately, in subsequent sections. Lab Results This section contains the Chemistry/Hematology Results that were resulted 30 days before or 30 daysafter the date of the Encounter. Date/Time Source Result Type Result - Unit Interpretation Reference Range Specimen Type Comment Sep 03, 2024 12:00 PM [facility] URINE DRUG SCREEN (STL) URINE Specimen Type: URINE Comment: The cut-off value for Fentanyl was laboratory developed and its performance characteristics confirmed by the [facility] laboratory thru method comparison with reference laboratory and medication chart review. The laboratory is regulated under CLIA as qualified to perform high-complexity testing. Fentanyl is used for clinical purposes in conjunction with other laboratory tests. Ordering Provider: DANIEL GOMEZ Report Released Date/Time: Sep 02, 2024 08:27 PM Reporting Lab: [facility] [id number] Performing Lab: [facility] [address] ETHANOL <10.0 mg/dL 0-9 AMPHET/METHAMPHETAMINE Negative ng/mL COCAINE METABOLITES Negative ng/mL BENZODIAZEPINES (STL) Negative ng/mL CANNABINOIDS POSITIVE ng/mL METHADONE Negative ng/mL OPIATES Negative ng/mL CREATININE URINE/OTHERS 110.1 mg/dL H 47.0 -110.0 OXYCODONE ([id number]) Negative ng/mL BUPRENORPHINE (STL-PB-MA) Negative ng/mL FENTANYL (STL-PB) Negative ng/mL Aug 25, 2024 02:03 PM [facility] URINE DRUG SCREEN (STL) URINE Specimen Type: URINE Comment: The cut-off value for Fentanyl was laboratory developed and its performance characteristics confirmed by the [facility] laboratory thru method comparison with reference laboratory and medication chart review. The laboratory is regulated under CLIA as qualified to perform high-complexity testing. Fentanyl is used for clinical purposes in conjunction with other laboratory tests. Ordering Provider: DANIEL GOMEZ Report Released Date/Time: Aug 24, 2024 07:24 PM Reporting Lab: [facility] [address] [facility] [address] Performing Lab: [facility] [address] [facility] [address] ETHANOL Negative mg/dL 0-20 AMPHET/METHAMPHETAMINE Negative ng/mL COCAINE METABOLITES Negative ng/mL BENZODIAZEPINES (STL) Negative ng/mL CANNABINOIDS POSITIVE ng/mL METHADONE Negative ng/mL OPIATES Negative ng/mL CREATININE URINE/OTHERS 39.0 mg/dL L 47-11 0 OXYCODONE ([id number]) Negative ng/mL BUPRENORPHINE (STL-PB-MA) Negative ng/mL FENTANYL (STL-PB) Negative ng/mL Aug 20, 2024 07:13 AM [facility] URINALYSIS W/ CX REFLEX (STL-PB) URINE Specim en Type: URINE No comment entered. Ordering Provider: DANIEL GOMEZ Report Released Date/Time: Aug 19, 2024 11:04 AM Reporting Lab: [facility] [place] [address] Performing Lab: [facility] [place] [address] URINE COLOR Yellow Yellow U.BILIRUBIN Negative mg/dL [...] GRAVITY 1.028 Aug 19, 2024 10:08 AM [facility] URINALYSIS (STL-PB) URINE Specimen Type: URIN E No comment entered. Ordering Provider: DANIEL GOMEZ Report Released Date/Time: Aug 16, 2024 03:45 PM Reporting Lab: [facility] [place] [address] Performing Lab: [facility] [place] [id number] URINE COLOR Yellow Yellow U.BILIRUBIN Negative mg/dL [...] 1.035 H Aug 19, 2024 10:08 AM [facility] TEST URINE (MA-STL) URINE Specimen Type: URINE No comment entered. Ordering Provider: DANIEL GOMEZ Report Released Date/Time: Aug 16, 2024 03:45 PM Reporting Lab: [facility] [address] Performing Lab: [facility] [address] Qualitative Test NEG NEGAT URBAN Aug 19, 2024 10:08 AM [facility] URINE DRUG SCREEN (STL) URINE Specimen Type: URINE Comment: The cut-off value for Fentanyl was laboratory developed and its performance characteristics confirmed by the [facility] laboratory thru method comparison with reference laboratory and medication chart review. The laboratory is regulated under CLIA as qualified to perform high-complexity testing. Fentanyl is used for clinical purposes in conjunction with other laboratory tests. Ordering Provider: DANIEL GOMEZ Report Released Date/Time: Aug 16, 2024 03:45 PM Reporting Lab: [facility] [address] Performing Lab: [facility] [address] ETHANOL Negative mg/dL 0-20 AMPHET/METHAMPHETAMINE Negative ng/mL COCAINE METABOLITES Negative ng/mL BENZODIAZEPINES (STL) Negative ng/mL CANNABINOIDS POSITIVE ng/mL METHADONE Negative ng/mL OPIATES POSITIVE ng/mL CREATININE URINE/OTHERS 266.1 mg/dL H 47.0 -110.0 OXYCODONE ([id number]) Negative ng/mL BUPRENORPHINE (STL-PB-MA) Negative ng/mL FENTANYL (STL-PB) Negative ng/mL Aug 19, 2024 10:00 AM [facility] CBC BLOOD Specimen Type: BLOOD No comment entered. Ordering Provider: DANIEL GOMEZ Report Released Date/Time: Aug 16, 2024 03:45 PM Reporting Lab: [facility] [phone] Performing Lab: [facility] [phone] WBC 12.7 10*3/uL H 3.6-11.2 RBC 4.19 [...] 0.00-0. 20 Aug 19, 2024 09:59 AM [facility] COMPREHENSIVE METABOLIC PANEL PLASMA Specimen Type: PLASMA Comment: No hemolysis noted. Ordering Provider: DANIEL GOMEZ Report Released Date/Time: Aug 16, 2024 03:45 PM Reporting Lab: [facility] [address] Performing Lab: [facility] [address] CREATININE 0.75 mg/dL 0.60-1.10 UREA NITROGEN 12.0 [...] 104.44 >60 Aug 19, 2024 09:59 AM [facility] PT/INR NEW (STL-MA) PLASMA Specimen Type: PLAS MA No comment entered. Ordering Provider: DANIEL GOMEZ Report Released Date/Time: Aug 16, 2024 03:45 PM Reporting Lab: [facility] [place] [address] Performing Lab: [facility] [place] [address] PROTIME 9.4 s 9.4-12.5 INR VALUE 0.8 {INR} Aug 19, 2024 09:59 AM [facility] ETHANOL SERUM/PLASMA (STL) PLASMA Specimen Typ e: PLASMA Comment: No hemolysis noted. Ordering Provider: DANIEL GOMEZ Report Released Date/Time: Aug 16, 2024 03:45 PM Reporting Lab: [facility] [place] [address] Performing Lab: [facility] [place] [address] ETHANOL SERUM/PLASMA (STL) <10.0 mg/dL 0 -10 Aug 19, 2024 09:59 AM [facility] GGT GAMMA-GT PLASMA Specimen Type: PLASM A No comment entered. Ordering Provider: DAINEL GOMEZ Report Released Date/Time: Aug 16, 2024 03:45 PM Reporting Lab: [facility] [address] [facility] [address] Performing Lab: [facility] [address] [facility] [address] GGT GAMMA-GT 14 [IU]/L 12-64 Aug 19, 2024 09:59 AM [facility] MAGNESIUM PLASMA Specimen Type: PLASM A Comment: No hemolysis noted. Ordering Provider: DANIEL GOMEZ Report Released Date/Time: Aug 16, 2024 03:45 PM Reporting Lab: [facility] [address] Performing Lab: [facility] [address] MAGNESIUM 2.1 mg/dL 1.6-2.6 Aug 19, 2024 09:59 AM [facility] CPK SERUM Specimen Type: SERUM No comment entered. Ordering Provider: DANIEL GOMEZ Report Released Date/Time: Aug 16, 2024 03:45 PM Reporting Lab: [facility] [address] Performing Lab: [facility] [phone] CPK 37 U/L 29-168 Aug 19, 2024 09:59 AM [facility] HEP C Ab HCV Ab (STL) SERUM Specimen Type: SE RUM No comment entered. Ordering Provider: DANIEL GOMEZ Report Released Date/Time: Aug 16, 2024 03:45 PM Reporting Lab: [place] [id number] [facility] [address] Performing Lab: [address] [address] HEP C Ab HCV Ab (STL) Nonreactive Nonrea ctive Aug 19, 2024 09:59 AM [facility] HIV COMBO FOURTH GENERATION (STL) SERUM Speci men Type: SERUM No comment entered. Ordering Provider: DANIEL GOMEZ Report Released Date/Time: Aug 16, 2024 03:45 PM Reporting Lab: [facility] [address] [facility] [address] Performing Lab: [facility] [address] [facility] [address] HIV COMBO FOURTH GENERATION (STL) Nonreactive Nonreactive Encounter Notes: All associated encounter notes This section contains the clinical notes associated to the Encounter. Date/Time Encounter Note(s) Provider Source Sep 04, 2024 09:00 PM PSYCHIATRY GROUP C GURPREET NOTE: LOCAL TITLE: [facility]RY GROUP NOTE STL STANDARD TITLE: PSYCHIATRY GROUP COUNSELING NOTE DATE OF NOTE: SEP 04, 2024@21:00 ENTRY DATE: SEP 04, 2024@22:19:57 AUTHOR: JED MONTERO EXP COSIGNER: URGENCY: STATUS: COMPLETED Discipline: Nursing Group Time: Group Topic: Substance Abuse Group Content: was one of ( Twenty[place]) 22 who attended this evening' wrap-up group. All the veterans were thanked for their courage in coming into the program and were also thanked for their service. All the veterans endorsed a positive aspect from today's program. Random questions were answered, and unit rules [...] Response: Actively engaged. Number of Patients Attending Group:22 Diagnosis: ESTELA /es/ OLIVER SOFIA,RN Registered Nurse, [address] [facility] Signed: 09/04/2024 22:25 JED MONTERO Adrian MARTINEZ ASA
--- OUTSIDE RECORDS SUMMARY | 2025-02-23 10:56 | XMS_ITS | Encounter Summary ---
Author Name [facility] [place] Organization [facility] [place] Address [address] [place] [address] Support Name Relationship Address Phone FUAD CHRISTINE [...] MEDIC AID Aug 02, 2015 MEDICAI D [id number] [phone] STACIE AYEJENNIFER PATIENT [facility] (WNR) MEDICAID MEDIC AID [facility] (WNR) Dec 01, 2023 MEDICAI D [id number] STACIE JENNIFER PATIENT Selected Encounter This section includes the information on record at [place] for the Encounter. Date/Time Encounter Type Encounter Description Reason Provider Source Sep 01, 2024 09:00 PM SELF-MGMT EDUC/TRAIN 5-8 PT SUBSTANCE USE DISORDR GRP ICD-10-CM F11.90 Opioid use, unspecified, uncomplicated MUGOYA,ROSEMA RY K IHE Encounter Template Text not used by [place] Assessments - Encounter Diagnoses This section includes the primary and secondary diagnoses documented for the Encounter. Date/Time Primary/Secondary Diagnosis Diagnosis Name Provider Source Sep 01, 2024 09:41 PM PRIMARY Opioid use, unspecified, uncomplicated [facility] Sep 01, 2024 09:41 PM SECONDARY Cannabis dependence, uncomplicated MUGOYA,ROSEMAR Y K [facility] Plan of Treatment: Future Appointments (+ 6 months) and Future Tests (+/- 45 days) The Plan of Treatment section includes future care activities for the patient from all [place] [facility]. This section includes future appointments and future orders which are active, pending or scheduled. Future Appointments This section includes appointments that were scheduled to occur 6 months from the date of the Encounter, up to a maximum of 20 appointments. The data comes from all [place] treatment facilities. Appointment Date/Time Appointment Type Appointme nt Facility Name Sep 10, 2024 12:30 PM AMBULATORY - PSYCHIATRY [facility] Sep 12, 2024 06:00 PM AMBULATORY - PSYCHIATRY [facility] Sep 17, 2024 06:00 PM AMBULATORY - PSYCHIATRY [facility] Sep 19, 2024 06:00 PM AMBULATORY - PSYCHIATRY [facility] Sep 26, 2024 06:00 PM AMBULATORY - PSYCHIATRY [facility] Oct 01, 2024 02:00 PM AMBULATORY - NONE [facility] Oct 09, 2024 03:00 PM AMBULATORY - MEDICINE [facility] Oct 16, 2024 01:00 PM AMBULATORY - PSYCHIATRY [facility] Oct 30, 2024 01:00 PM AMBULATORY - PSYCHIATRY [facility] Nov 27, 2024 01:00 PM AMBULATORY - PSYCHIATRY [facility] Dec 04, 2024 01:00 PM AMBULATORY - PSYCHIATRY [facility] Dec 11, 2024 01:00 PM AMBULATORY - PSYCHIATRY [facility] Dec 18, 2024 01:00 PM AMBULATORY - PSYCHIATRY [facility] Dec 25, 2024 01:00 PM AMBULATORY - PSYCHIATRY [facility] February 05, 2025 09:30 AM AMBULATORY - PSYCHIATRY [facility] Lab Results: +/- 30 days of the encounter This section includes the Chemistry and Hematology Lab Results on record with [place] for the patient. Radiology Reports and Pathology Reports are provided separately, in subsequent sections. Lab Results This section contains the Chemistry/Hematology Results that were resulted 30 days before or 30 daysafter the date of the Encounter. Date/Time Source Result Type Result - Unit Interpretation Reference Range Specimen Type Comment Sep 03, 2024 12:00 PM [facility] URINE DRUG SCREEN (STL) URINE Specimen Type: URINE Comment: The cut-off value for Fentanyl was laboratory developed and its performance characteristics confirmed by the [facility] laboratory thru method comparison with reference laboratory and medication chart review. The laboratory is regulated under CLIA as qualified to perform high-complexity testing. Fentanyl is used for clinical purposes in conjunction with other laboratory tests. Ordering Provider: DANIEL GOMEZ Report Released Date/Time: Sep 02, 2024 08:27 PM Reporting Lab: [facility] [facility] [phone] Performing Lab: [facility] [phone] ETHANOL <10.0 mg/dL 0-9 AMPHET/METHAMPHETAMINE Negative ng/mL COCAINE METABOLITES Negative ng/mL BENZODIAZEPINES (STL) Negative ng/mL CANNABINOIDS POSITIVE ng/mL METHADONE Negative ng/mL OPIATES Negative ng/mL CREATININE URINE/OTHERS 110.1 mg/dL H 47.0 -110.0 OXYCODONE (TTVCL-DRV-PE) Negative ng/mL BUPRENORPHINE (STL-PB-MA) Negative ng/mL FENTANYL (STL-PB) Negative ng/mL Aug 25, 2024 02:03 PM [facility] URINE DRUG SCREEN (STL) URINE Specimen Type: URINE Comment: The cut-off value for Fentanyl was laboratory developed and its performance characteristics confirmed by the [facility] laboratory thru method comparison with reference laboratory and medication chart review. The laboratory is regulated under CLIA as qualified to perform high-complexity testing. Fentanyl is used for clinical purposes in conjunction with other laboratory tests. Ordering Provider: DANIEL GOMEZ Report Released Date/Time: Aug 24, 2024 07:24 PM Reporting Lab: [facility] [address] [facility] [address] Performing Lab: [facility] [address] [facility] [address] ETHANOL Negative mg/dL 0-20 AMPHET/METHAMPHETAMINE Negative ng/mL COCAINE METABOLITES Negative ng/mL BENZODIAZEPINES (STL) Negative ng/mL CANNABINOIDS POSITIVE ng/mL METHADONE Negative ng/mL OPIATES Negative ng/mL CREATININE URINE/OTHERS 39.0 mg/dL L 47-11 0 OXYCODONE (HGLPJ-WXR-HQ) Negative ng/mL BUPRENORPHINE (STL-PB-MA) Negative ng/mL FENTANYL (STL-PB) Negative ng/mL Aug 20, 2024 07:13 AM [facility] URINALYSIS W/ CX REFLEX (STL-PB) URINE Specim en Type: URINE No comment entered. Ordering Provider: DANIEL GOMEZ Report Released Date/Time: Aug 19, 2024 11:04 AM Reporting Lab: [facility] [place] [address] Performing Lab: [facility] [place] [address] URINE COLOR Yellow Yellow U.BILIRUBIN Negative mg/dL [...] GRAVITY 1.028 Aug 19, 2024 10:08 AM [facility] URINALYSIS (STL-PB) URINE Specimen Type: URIN E No comment entered. Ordering Provider: DANIEL GOMEZ Report Released Date/Time: Aug 16, 2024 03:45 PM Reporting Lab: [facility] [place] [address] Performing Lab: [facility] [place] [address] URINE COLOR Yellow Yellow U.BILIRUBIN Negative mg/dL [...] 1.035 H Aug 19, 2024 10:08 AM [facility] TEST URINE (MA-STL) URINE Specimen Type: URINE No comment entered. Ordering Provider: DANIEL GOMEZ Report Released Date/Time: Aug 16, 2024 03:45 PM Reporting Lab: [facility] [address] Performing Lab: [facility] [facility] [address] Qualitative Test NEG NEGAT URBAN Aug 19, 2024 10:08 AM [facility] URINE DRUG SCREEN (STL) URINE Specimen Type: URINE Comment: The cut-off value for Fentanyl was laboratory developed and its performance characteristics confirmed by the [facility] laboratory thru method comparison with reference laboratory and medication chart review. The laboratory is regulated under CLIA as qualified to perform high-complexity testing. Fentanyl is used for clinical purposes in conjunction with other laboratory tests. Ordering Provider: DANIEL GOMEZ Report Released Date/Time: Aug 16, 2024 03:45 PM Reporting Lab: [facility] [address] Performing Lab: [facility] [facility] [address] ETHANOL Negative mg/dL 0-20 AMPHET/METHAMPHETAMINE Negative ng/mL COCAINE METABOLITES Negative ng/mL BENZODIAZEPINES (STL) Negative ng/mL CANNABINOIDS POSITIVE ng/mL METHADONE Negative ng/mL OPIATES POSITIVE ng/mL CREATININE URINE/OTHERS 266.1 mg/dL H 47.0 -110.0 OXYCODONE (QFFWT-LHP-CP) Negative ng/mL BUPRENORPHINE (STL-PB-MA) Negative ng/mL FENTANYL (STL-PB) Negative ng/mL Aug 19, 2024 10:00 AM [facility] CBC BLOOD Specimen Type: BLOOD No comment entered. Ordering Provider: DANIEL GOMEZ Report Released Date/Time: Aug 16, 2024 03:45 PM Reporting Lab: [facility] [address] Performing Lab: [facility] [address] WBC 12.7 10*3/uL H 3.6-11.2 RBC 4.19 [...] 0.00-0. 20 Aug 19, 2024 09:59 AM [facility] COMPREHENSIVE METABOLIC PANEL PLASMA Specimen Type: PLASMA Comment: No hemolysis noted. Ordering Provider: DANIEL GOMEZ Report Released Date/Time: Aug 16, 2024 03:45 PM Reporting Lab: [facility] [address] Performing Lab: [facility] [facility] [address] CREATININE 0.75 mg/dL 0.60-1.10 UREA NITROGEN 12.0 [...] 104.44 >60 Aug 19, 2024 09:59 AM [facility] PT/INR NEW (STL-MA) PLASMA Specimen Type: PLAS MA No comment entered. Ordering Provider: DANIEL GOMEZ Report Released Date/Time: Aug 16, 2024 03:45 PM Reporting Lab: [facility] [place] [address] Performing Lab: [facility] [place] [address] PROTIME 9.4 s 9.4-12.5 INR VALUE 0.8 {INR} Aug 19, 2024 09:59 AM [facility] ETHANOL SERUM/PLASMA (STL) PLASMA Specimen Typ e: PLASMA Comment: No hemolysis noted. Ordering Provider: DANIEL GOMEZ Report Released Date/Time: Aug 16, 2024 03:45 PM Reporting Lab: [facility] [place] [address] Performing Lab: [facility] [place] [address] ETHANOL SERUM/PLASMA (STL) <10.0 mg/dL 0 -10 Aug 19, 2024 09:59 AM [facility] GGT GAMMA-GT PLASMA Specimen Type: PLASM A No comment entered. Ordering Provider: DANIEL GOMEZ Report Released Date/Time: Aug 16, 2024 03:45 PM Reporting Lab: [facility] [address] [place] [address] Performing Lab: [facility] [address] [place] [address] GGT GAMMA-GT 14 [IU]/L 12-64 Aug 19, 2024 09:59 AM [facility] MAGNESIUM PLASMA Specimen Type: PLASM A Comment: No hemolysis noted. Ordering Provider: DANIEL GOMEZ Report Released Date/Time: Aug 16, 2024 03:45 PM Reporting Lab: [facility] [place] [phone] Performing Lab: [facility] [facility] [address] MAGNESIUM 2.1 mg/dL 1.6-2.6 Aug 19, 2024 09:59 AM [facility] CPK SERUM Specimen Type: SERUM No comment entered. Ordering Provider: DANIEL GOMEZ Report Released Date/Time: Aug 16, 2024 03:45 PM Reporting Lab: [facility] [address] Performing Lab: [facility] [facility] [address] CPK 37 U/L 29-168 Aug 19, 2024 09:59 AM [facility] HEP C Ab HCV Ab (STL) SERUM Specimen Type: SE RUM No comment entered. Ordering Provider: DANIEL GOMEZ Report Released Date/Time: Aug 16, 2024 03:45 PM Reporting Lab: [facility] [address] [place] [address] Performing Lab: [address] [address] HEP C Ab HCV Ab (STL) Nonreactive Nonrea ctive Aug 19, 2024 09:[address] [facility] HIV COMBO FOURTH GENERATION (STL) SERUM Speci men Type: SERUM No comment entered. Ordering Provider: DANIEL GOMEZ Report Released Date/Time: Aug 16, 2024 03:45 PM Reporting Lab: [facility] [address] [facility] [address] Performing Lab: [facility] [address] [facility] [address] HIV COMBO FOURTH GENERATION (STL) Nonreactive Nonreactive Encounter Notes: All associated encounter notes This section contains the clinical notes associated to the Encounter. Date/Time Encounter Note(s) Provider Source Sep 01, 2024 09:00 PM PSYCHIATRY GROUP C [facility] NOTE: LOCAL TITLE: [facility] GROUP NOTE STL STANDARD TITLE: PSYCHIATRY GROUP COUNSELING NOTE DATE OF NOTE: SEP 01, 2024@21:00 ENTRY DATE: SEP 01, 2024@21:35:42 AUTHOR: JED MONTERO EXP COSIGNER: URGENCY: STATUS: COMPLETED Discipline: Nursing Group Time: Group Topic: Substance Abuse Group Content: [place] was one of ( [place]) 22 who attended this evening' wrap-up group. All the veterans were thanked for their courage in coming into the program and were also thanked for their service. All the veterans endorsed a positive aspect from today's events. Random questions were answered, and unit rules [...] of Patients Attending Group:22 Diagnosis: ESTELA /es/ JED Alfaro. OLIVER MONTERO,RN Registered Nurse, [facility] [address] [place] [address] Signed: 09/01/2024 21:51 JED MONTERO [facility]
--- OUTSIDE RECORDS SUMMARY | 2025-02-23 10:57 | XMS_ITS | Encounter Summary ---
Author Name [facility] [place] [facility] [place] [facility] [facility] [place] Address [address] [place] [address] Support Name Relationship Address Phone FUAD CHRISTINE Next of Kin Unknown CHRISTINE MERIDA Emergency Contact Unknown [phone] Insurance Providers: All historical and current Section [...] MEDIC AID Aug 02, 2015 MEDICAI D [id number] STACIE JENNIFER PATIENT [facility] (WNR) MEDICAID MEDIC AID [facility] (WNR) Dec 01, 2023 MEDICAI D [id number] JENNIFER QUINONES PATIENT Selected Encounter This section includes the information on record at [place] for the Encounter. Date/Time Encounter Type Encounter Description Reason Provider Source Sep 04, 2024 06:15 PM SELF-MGMT EDUC/TRAIN 5-8 PT SUBSTANCE USE DISORDR GRP ICD-10-CM F12.10 Cannabis abuse, uncomplicated STANLEYDAIN TRONCOSOER S IHE Encounter Template Text not used by [facility] Assessments - Encounter Diagnoses This section includes the primary and secondary diagnoses documented for the Encounter. Date/Time Primary/Secondary Diagnosis Diagnosis Name Provider Source Sep 04, 2024 07:15 PM PRIMARY Cannabis abuse, uncomplicated STANLEYVIELKA S [facility] Plan of Treatment: Future Appointments (+ 6 months) and Future Tests (+/- 45 days) The Plan of Treatment section includes future care activities for the patient from [facility] [place] [facility] This section includes future appointments and future orders which are active, pending or scheduled. Future Appointments This section includes appointments that were scheduled to occur 6 months from the date of the Encounter, up to a maximum of 20 appointments. The data comes from all [place] treatment facilities. Appointment Date/Time Appointment Type Appointme nt Facility Name Sep 10, 2024 12:30 PM AMBULATORY - PSYCHIATRY [facility] Sep 12, 2024 06:00 PM AMBULATORY - PSYCHIATRY [facility] Sep 17, 2024 06:00 PM AMBULATORY - PSYCHIATRY [facility] Sep 19, 2024 06:00 PM AMBULATORY - PSYCHIATRY [facility] Sep 26, 2024 06:00 PM AMBULATORY - PSYCHIATRY [facility] Oct 01, 2024 02:00 PM AMBULATORY - NONE [facility] Oct 09, 2024 03:00 PM AMBULATORY - MEDICINE [facility] Oct 16, 2024 01:00 PM AMBULATORY - PSYCHIATRY [facility] Oct 30, 2024 01:00 PM AMBULATORY - PSYCHIATRY [facility] Nov 27, 2024 01:00 PM AMBULATORY - PSYCHIATRY [facility] Dec 04, 2024 01:00 PM AMBULATORY - PSYCHIATRY [facility] Dec 11, 2024 01:00 PM AMBULATORY - PSYCHIATRY [facility] Dec 18, 2024 01:00 PM AMBULATORY - PSYCHIATRY [facility] Dec 25, 2024 01:00 PM AMBULATORY - PSYCHIATRY [facility] February 05, 2025 09:30 AM AMBULATORY - PSYCHIATRY [facility] Lab Results: +/- 30 days of the encounter This section includes the Chemistry and Hematology Lab Results on record with [place] for the patient. Radiology Reports and Pathology Reports are provided separately, in subsequent sections. Lab Results This section contains the Chemistry/Hematology Results that were resulted 30 days before or 30 daysafter the date of the Encounter. Date/Time Source Result Type Result - Unit Interpretation Reference Range Specimen Type Comment Sep 03, 2024 12:00 PM [facility] URINE DRUG SCREEN (STL) URINE Specimen Type: URINE Comment: The cut-off value for Fentanyl was laboratory developed and its performance characteristics confirmed by the [facility] laboratory thru method comparison with reference laboratory and medication chart review. The laboratory is regulated under CLIA as qualified to perform high-complexity testing. Fentanyl is used for clinical purposes in conjunction with other laboratory tests. Ordering Provider: DANIEL GMOEZ Report Released Date/Time: Sep 02, 2024 08:27 PM Reporting Lab: [facility] [address] Performing Lab: [facility] [address] ETHANOL <10.0 mg/dL 0-9 AMPHET/METHAMPHETAMINE Negative ng/mL COCAINE METABOLITES Negative ng/mL BENZODIAZEPINES (STL) Negative ng/mL CANNABINOIDS POSITIVE ng/mL METHADONE Negative ng/mL OPIATES Negative ng/mL CREATININE URINE/OTHERS 110.1 mg/dL H 47.0 -110.0 OXYCODONE ([id number]-OR) Negative ng/mL BUPRENORPHINE (STL-PB-MA) Negative ng/mL FENTANYL (STL-PB) Negative ng/mL Aug 25, 2024 02:03 PM [facility] URINE DRUG SCREEN (STL) URINE Specimen Type: URINE Comment: The cut-off value for Fentanyl was laboratory developed and its performance characteristics confirmed by the [facility] laboratory thru method comparison with reference laboratory and medication chart review. The laboratory is regulated under CLIA as qualified to perform high-complexity testing. Fentanyl is used for clinical purposes in conjunction with other laboratory tests. Ordering Provider: DANIEL GOMEZ Report Released Date/Time: Aug 24, 2024 07:24 PM Reporting Lab: [facility] [address] [facility] [address] Performing Lab: [facility] [address] [facility] [address] ETHANOL Negative mg/dL 0-20 AMPHET/METHAMPHETAMINE Negative ng/mL COCAINE METABOLITES Negative ng/mL BENZODIAZEPINES (STL) Negative ng/mL CANNABINOIDS POSITIVE ng/mL METHADONE Negative ng/mL OPIATES Negative ng/mL CREATININE URINE/OTHERS 39.0 mg/dL L 47-11 0 OXYCODONE (DJAIO-[id number]-FA) Negative ng/mL BUPRENORPHINE (STL-PB-MA) Negative ng/mL FENTANYL (STL-PB) Negative ng/mL Aug 20, 2024 07:13 AM [facility] URINALYSIS W/ CX REFLEX (STL-PB) URINE Specim en Type: URINE No comment entered. Ordering Provider: DANIEL GOMEZ Report Released Date/Time: Aug 19, 2024 11:04 AM Reporting Lab: [facility] [place] [address] Performing Lab: [facility] [place] [address] URINE COLOR Yellow Yellow U.BILIRUBIN Negative mg/dL [...] PM Reporting Lab: [facility] [address] Performing Lab: [facility] [place] [address] URINE COLOR Yellow Yellow U.BILIRUBIN Negative mg/dL [...] 1.035 H Aug 19, 2024 10:08 AM [facility] TEST URINE (MA-STL) URINE Specimen Type: URINE No comment entered. Ordering Provider: DANIEL GOMEZ Report Released Date/Time: Aug 16, 2024 03:45 PM Reporting Lab: [facility] [address] Performing Lab: [facility] [address] Qualitative Test NEG NEGAT URBAN Aug 19, 2024 10:08 AM [facility] URINE DRUG SCREEN (STL) URINE Specimen Type: URINE Comment: The cut-off value for Fentanyl was laboratory developed and its performance characteristics confirmed by the [facility] laboratory thru method comparison with reference laboratory and medication chart review. The laboratory is regulated under CLIA as qualified to perform high-complexity testing. Fentanyl is used for clinical purposes in conjunction with other laboratory tests. Ordering Provider: DANIEL GOMEZ Report Released Date/Time: Aug 16, 2024 03:45 PM Reporting Lab: [facility] [address] Performing Lab: [facility] [address] ETHANOL Negative mg/dL 0-20 AMPHET/METHAMPHETAMINE Negative ng/mL COCAINE METABOLITES Negative ng/mL BENZODIAZEPINES (STL) Negative ng/mL CANNABINOIDS POSITIVE ng/mL METHADONE Negative ng/mL OPIATES POSITIVE ng/mL CREATININE URINE/OTHERS 266.1 mg/dL H 47.0 -110.0 OXYCODONE (NSMSI-SMB-QT) Negative ng/mL BUPRENORPHINE (STL-PB-MA) Negative ng/mL FENTANYL (STL-PB) Negative ng/mL Aug 19, 2024 10:00 AM [facility] CBC BLOOD Specimen Type: BLOOD No comment entered. Ordering Provider: DANIEL GOMEZ Report Released Date/Time: Aug 16, 2024 03:45 PM Reporting Lab: [facility] [address] Performing Lab: [facility] [address] WBC 12.7 10*3/uL H 3.6-11.2 RBC 4.19 [...] 0.00-0. 20 Aug 19, 2024 09:59 AM [facility] COMPREHENSIVE METABOLIC PANEL PLASMA Specimen Type: PLASMA Comment: No hemolysis noted. Ordering Provider: DANIEL GOMEZ Report Released Date/Time: Aug 16, 2024 03:45 PM Reporting Lab: [facility] [address] Performing Lab: [facility] [address] CREATININE 0.75 mg/dL 0.60-1.10 UREA NITROGEN 12.0 [...] PM Reporting Lab: [facility] [address] Performing Lab: [facility] [address] PROTIME 9.4 s 9.4-12.5 INR VALUE 0.8 {INR} Aug 19, 2024 09:59 AM [facility] ETHANOL SERUM/PLASMA (STL) PLASMA Specimen Typ e: PLASMA Comment: No hemolysis noted. Ordering Provider: DANIEL GOMEZ Report Released Date/Time: Aug 16, 2024 03:45 PM Reporting Lab: [facility] [address] Performing Lab: [facility] [address] ETHANOL SERUM/PLASMA (STL) <10.0 mg/dL 0 -10 Aug 19, 2024 09:59 AM [facility] GGT GAMMA-GT PLASMA Specimen Type: PLASM A No comment entered. Ordering Provider: DANIEL GOMEZ Report Released Date/Time: Aug 16, 2024 03:45 PM Reporting Lab: [facility] [address] [facility] [address] Performing Lab: [facility] [address] [facility] [address] GGT GAMMA-GT 14 [IU]/L 12-64 Aug 19, 2024 09:59 AM [facility] MAGNESIUM PLASMA Specimen Type: PLASM A Comment: No hemolysis noted. Ordering Provider: DANIEL GOMEZ Report Released Date/Time: Aug 16, 2024 03:45 PM Reporting Lab: [facility] [address] Performing Lab: [facility] [address] MAGNESIUM 2.1 mg/dL 1.6-2.6 Aug 19, 2024 09:59 AM [facility] CPK SERUM Specimen Type: SERUM No comment entered. Ordering Provider: DANIEL GOMEZ Report Released Date/Time: Aug 16, 2024 03:45 PM Reporting Lab: [facility] [address] Performing Lab: [facility] [address] CPK 37 U/L 29-168 Aug 19, 2024 09:59 AM [facility] HEP C Ab HCV Ab (STL) SERUM Specimen Type: SE RUM No comment entered. Ordering Provider: DANIEL GOMEZ Report Released Date/Time: Aug 16, 2024 03:45 PM Reporting Lab: [facility] [address] [facility] [address] Performing Lab: [facility] [address] [facility] [address] HEP C Ab HCV Ab (STL) Nonreactive Nonrea ctive Aug 19, 2024 09:59 AM [facility] HIV COMBO FOURTH GENERATION (STL) SERUM Speci men Type: SERUM No comment entered. Ordering Provider: DANIEL GOMEZ Report Released Date/Time: Aug 16, 2024 03:45 PM Reporting Lab: [facility] [address] [facility] [address] Performing Lab: [facility] [address] [facility] [address] HIV COMBO FOURTH GENERATION (STL) Nonreactive Nonreactive Encounter Notes: All associated encounter notes This section contains the clinical notes associated to the Encounter. Date/Time Encounter Note(s) Provider Source Sep 04, 2024 06:15 PM PSYCHIATRY GROUP COUNSELING NOTE: LOCAL TITLE: S PSYCHIATRY GROUP NOTE STL STANDARD TITLE: PSYCHIATRY GROUP COUNSELING NOTE DATE OF NOTE: SEP 04, 2024@18:15 ENTRY DATE: SEP 04, 2024@19:07:42 AUTHOR: STEPHANIE STANLEY EXP COSIGNER: URGENCY: STATUS: COMPLETED PATIENT DIAGNOSIS: Substance Abuse DISCIPLINE/SERVICE(S) PROVIDING GROUP: Nursing GROUP TIME: PATIENT PROBLEM ADDRESSED IN THIS GROUP: Substance Abuse GROUP TOPIC(S): Substance Abuse GROUP CONTENT: Vet vs. 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 I then asked them which if any of those qualities they maintained while active in their addiction. I then suggested ideas/thoughts that would empower them in this fight with their addiction and also reminded them to never forget those 3 qualities and to put them in force to overcome and defeat addiction. GROUP GOALS: achieved PATIENT RESPONSE: Active Participated meaningfully Number of patients in group: / STEPHANIE STANLEY Registered Nurse, THANH 51E Signed: 09/04/2024 19:21 STEPHANIE STANLEY [facility] THANH
--- OUTSIDE RECORDS SUMMARY | 2025-02-23 10:57 | XMS_ITS | Encounter Summary ---
Author Name [facility] [place] [facility] [place] [facility] [place] Address [address] [place] [address] Support Name Relationship Address Phone FUAD CHRISTINE Next of Kin Unknown CHRISTINE MERIDA Emergency Contact Unknown [phone] Insurance Providers: All historical and current Section [...] MEDIC AID Aug 02, 2015 MEDICAI D [id number] [id number] STACIE JENNIFER PATIENT [facility] (WNR) MEDICAID MEDIC AID [facility] (WNR) Dec 01, 2023 MEDICAI D [id number] STACIE AYEJENNIFER PATIENT Selected Encounter This section includes the information on record at [place] for the Encounter. Date/Time Encounter Type Encounter Description Reason Provider Source Sep 08, 2024 09:00 PM SELF-MGMT EDUC/TRAIN 5-8 PT SUBSTANCE USE DISORDR GRP ICD-10-CM F11.90 Opioid use, unspecified, uncomplicated SLEYSTER,WILL DEIDRE ELIZABETH Encounter Template Text not used by [place] Assessments - Encounter Diagnoses This section includes the primary and secondary diagnoses documented for the Encounter. Date/Time Primary/Secondary Diagnosis Diagnosis Name Provider Source Sep 08, 2024 11:29 PM PRIMARY Opioid use, unspecified, uncomplicated SLEYSTER,NAIF [facility] Plan of Treatment: Future Appointments (+ 6 months) and Future Tests (+/- 45 days) The Plan of Treatment section includes future care activities for the patient from all [place] [facility]. This section includes future appointments and future orders which are active, pending or scheduled. Future Appointments This section includes appointments that were scheduled to occur 6 months from the date of the Encounter, up to a maximum of 20 appointments. The data comes from all [place] [facility]. Appointment Date/Time Appointment Type Appointme nt Facility Name Sep 10, 2024 12:30 PM AMBULATORY - PSYCHIATRY [facility] Sep 12, 2024 06:00 PM AMBULATORY - PSYCHIATRY [facility] Sep 17, 2024 06:00 PM AMBULATORY - PSYCHIATRY [facility] Sep 19, 2024 06:00 PM AMBULATORY - PSYCHIATRY [facility] Sep 26, 2024 06:00 PM AMBULATORY - PSYCHIATRY [facility] Oct 01, 2024 02:00 PM AMBULATORY - NONE [facility] Oct 09, 2024 03:00 PM AMBULATORY - MEDICINE [facility] Oct 16, 2024 01:00 PM AMBULATORY - PSYCHIATRY [facility] Oct 30, 2024 01:00 PM AMBULATORY - PSYCHIATRY [facility] Nov 27, 2024 01:00 PM AMBULATORY - PSYCHIATRY [facility] Dec 04, 2024 01:00 PM AMBULATORY - PSYCHIATRY [facility] Dec 11, 2024 01:00 PM AMBULATORY - PSYCHIATRY [facility] Dec 18, 2024 01:00 PM AMBULATORY - PSYCHIATRY [facility] Dec 25, 2024 01:00 PM AMBULATORY - PSYCHIATRY [facility] February 05, 2025 09:30 AM AMBULATORY - PSYCHIATRY [facility] Lab Results: +/- 30 days of the encounter This section includes the Chemistry and Hematology Lab Results on record with [place] for the patient. Radiology Reports and Pathology Reports are provided separately, in subsequent sections. Lab Results This section contains the Chemistry/Hematology Results that were resulted 30 days before or 30 daysafter the date of the Encounter. Date/Time Source Result Type Result - Unit Interpretation Reference Range Specimen Type Comment Sep 03, 2024 12:00 PM [facility] URINE DRUG SCREEN (STL) URINE Specimen [...] Sep 02, 2024 08:27 PM Reporting Lab: [facility] [facility] [address] Performing Lab: [facility] [facility] [phone] ETHANOL <10.0 mg/dL 0-9 AMPHET/METHAMPHETAMINE Negative ng/mL COCAINE METABOLITES Negative ng/mL BENZODIAZEPINES (STL) Negative ng/mL CANNABINOIDS POSITIVE ng/mL METHADONE Negative ng/mL OPIATES Negative ng/mL CREATININE URINE/OTHERS 110.1 mg/dL H 47.0 -110.0 OXYCODONE ([id number]) Negative ng/mL BUPRENORPHINE (STL-PB-[place]) Negative ng/mL FENTANYL (STL-PB) Negative ng/mL Aug 25, 2024 02:03 PM [facility] URINE DRUG SCREEN (STL) URINE [...] Aug 24, 2024 07:24 PM Reporting Lab: [facility] [address] [facility] [address] Performing Lab: [facility] [address] [facility] [address] ETHANOL Negative mg/dL 0-20 AMPHET/METHAMPHETAMINE Negative ng/mL COCAINE METABOLITES Negative ng/mL BENZODIAZEPINES (STL) Negative ng/mL CANNABINOIDS POSITIVE ng/mL METHADONE Negative ng/mL OPIATES Negative ng/mL CREATININE URINE/OTHERS 39.0 mg/dL L 47-11 0 OXYCODONE ([id number]) Negative ng/mL BUPRENORPHINE (STL-PB-[place]) Negative ng/mL FENTANYL (STL-PB) Negative ng/mL Aug 20, 2024 07:13 AM [facility] URINALYSIS W/ CX REFLEX (STL-PB) URINE Specim en Type: URINE No comment entered. Ordering Provider: DANIEL GOMEZ Report Released Date/Time: Aug 19, 2024 11:04 AM Reporting Lab: [facility] [facility] [address] Performing Lab: [facility] [place] [address] URINE COLOR Yellow Yellow U.BILIRUBIN Negative mg/dL [...] GRAVITY 1.028 Aug 19, 2024 10:08 AM [facility] URINALYSIS (STL-PB) URINE Specimen Type: URIN E No comment entered. Ordering Provider: DANIEL GOMEZ Report Released Date/Time: Aug 16, 2024 03:45 PM Reporting Lab: [facility] [facility] [address] Performing Lab: [facility] [place] [address] URINE COLOR Yellow Yellow U.BILIRUBIN Negative mg/dL [...] 1.035 H Aug 19, 2024 10:08 AM [facility] TEST URINE ([place]-STL) URINE Specimen Type: URINE No comment entered. Ordering Provider: DANIEL GOMEZ Report Released Date/Time: Aug 16, 2024 03:45 PM Reporting Lab: [facility] [facility] [address] Performing Lab: [facility] [facility] [address] Qualitative Test NEG NEGAT URBAN Aug 19, 2024 10:08 AM [facility] URINE DRUG SCREEN (STL) URINE Specimen [...] Aug 16, 2024 03:45 PM Reporting Lab: [facility] [facility] [address] Performing Lab: [facility] [facility] [address] ETHANOL Negative mg/dL 0-20 AMPHET/METHAMPHETAMINE Negative ng/mL COCAINE METABOLITES Negative ng/mL BENZODIAZEPINES (STL) Negative ng/mL CANNABINOIDS POSITIVE ng/mL METHADONE Negative ng/mL OPIATES POSITIVE ng/mL CREATININE URINE/OTHERS 266.1 mg/dL H 47.0 -110.0 OXYCODONE ([id number]) Negative ng/mL BUPRENORPHINE (STL-PB-[place]) Negative ng/mL FENTANYL (STL-PB) Negative ng/mL Aug 19, 2024 10:00 AM [facility] CBC BLOOD Specimen Type: BLOOD No comment entered. Ordering Provider: DANIEL GOMEZ Report Released Date/Time: Aug 16, 2024 03:45 PM Reporting Lab: [facility] [facility] [address] Performing Lab: [facility] [place] [phone] WBC 12.7 10*3/uL H 3.6-11.2 RBC 4.19 [...] 0.00-0. 20 Aug 19, 2024 09:59 AM [facility] COMPREHENSIVE METABOLIC PANEL PLASMA Specimen Type: PLASMA Comment: No hemolysis noted. Ordering Provider: DANIEL GOMEZ Report Released Date/Time: Aug 16, 2024 03:45 PM Reporting Lab: [facility] [facility] [address] Performing Lab: [facility] [address] [place] [phone] CREATININE 0.75 mg/dL 0.60-1.10 UREA NITROGEN 12.0 [...] 104.44 >60 Aug 19, 2024 09:59 AM [facility] PT/INR NEW (STL-[place]) PLASMA Specimen Type: PLAS [place] No comment entered. Ordering Provider: DANIEL GOMEZ Report Released Date/Time: Aug 16, 2024 03:45 PM Reporting Lab: [facility] [facility] [address] Performing Lab: [facility] [facility] [address] PROTIME 9.4 s 9.4-12.5 INR VALUE 0.8 {INR} Aug 19, 2024 09:59 AM [facility] ETHANOL SERUM/PLASMA (STL) PLASMA Specimen Typ e: PLASMA Comment: No hemolysis noted. Ordering Provider: DANIEL GOMEZ Report Released Date/Time: Aug 16, 2024 03:45 PM Reporting Lab: [facility] [facility] [address] Performing Lab: [facility] [facility] [address] ETHANOL SERUM/PLASMA (STL) <10.0 mg/dL 0 -10 Aug 19, 2024 09:59 AM [facility] GGT GAMMA-GT PLASMA Specimen Type: PLASM A No comment entered. Ordering Provider: DANIEL GOMZE Report Released Date/Time: Aug 16, 2024 03:45 PM Reporting Lab: [facility] [address] [facility] [address] Performing Lab: [facility] [address] [facility] [address] GGT GAMMA-GT 14 [IU]/L 12-64 Aug 19, 2024 09:59 AM [facility] MAGNESIUM PLASMA Specimen Type: PLASM A Comment: No hemolysis noted. Ordering Provider: DANIEL GOMEZ Report Released Date/Time: Aug 16, 2024 03:45 PM Reporting Lab: [facility] [facility] [address] Performing Lab: [facility] [facility] [phone] MAGNESIUM 2.1 mg/dL 1.6-2.6 Aug 19, 2024 09:59 AM [facility] CPK SERUM Specimen Type: SERUM No comment entered. Ordering Provider: DANIEL GOMEZ Report Released Date/Time: Aug 16, 2024 03:45 PM Reporting Lab: [facility] [facility] [address] Performing Lab: [facility] [facility] [address] CPK 37 U/L 29-168 Aug 19, 2024 09:59 AM [facility] HEP C Ab HCV Ab (STL) SERUM Specimen Type: SE RUM No comment entered. Ordering Provider: DANIEL GOMEZ Report Released Date/Time: Aug 16, 2024 03:45 PM Reporting Lab: [facility] [address] [facility] [address] Performing Lab: [facility] [address] [facility] [address] HEP C Ab HCV Ab (STL) Nonreactive Nonrea ctive Aug 19, 2024 09:59 AM [facility] HIV COMBO FOURTH GENERATION (STL) SERUM Speci men Type: SERUM No comment entered. Ordering Provider: DANIEL GOMEZ Report Released Date/Time: Aug 16, 2024 03:45 PM Reporting Lab: [facility] [address] [facility] [address] Performing Lab: [facility] [address] [facility] [phone] HIV COMBO FOURTH GENERATION (STL) Nonreactive Nonreactive Encounter Notes: All associated encounter notes This section contains the clinical notes associated to the Encounter. Date/Time Encounter Note(s) Provider Source Sep 08, 2024 09:00 PM PSYCHIATRY GROUP Alis VÁZQUEZ NOTE: LOCAL TITLE: [facility] NOTE STL STANDARD TITLE: PSYCHIATRY GROUP COUNSELING NOTE DATE OF NOTE: SEP 08, 2024@21:00 ENTRY DATE: SEP 08, 2024@23:24:29 AUTHOR: RUDDY OSPINA COSIGNER: URGENCY: STATUS: COMPLETED PATIENT DIAGNOSIS: Substance Use Disorder DISCIPLINE/SERVICE(S) PROVIDING GROUP: Nursing GROUP TIME: 9:00 PM - 9:30 PATIENT DIAGNOSIS: Substance Use Disorder DISCIPLINE/SERVICE(S) PROVIDING GROUP: Nursing PATIENT PROBLEM ADDRESSED IN THIS GROUP: Vets used this time to reflect on their day, the positives and what they learned. GROUP TOPIC(S): Substance Use Disorder GROUP CONTENT: Wrap-up Group was one of Twenty-Five who attended this evenings' wrap-up group. All the veterans were encouraged to talk about what they had learned today. Veterans were thanked for their service. The goal of this group was to point out improvements in the veterans and to emphasize the role daily gratitude plays in their recovery. GROUP GOALS: Achieved PATIENT RESPONSE: Active Participated meaningfully. Number of patients in group: 25 /es/ RUDDY OSPINA RN, BSN REGISTERED NURSE Signed: 09/08/2024 23:31 RUDDY OSPINA
--- OUTSIDE RECORDS SUMMARY | 2025-02-23 10:57 | XMS_ITS | Continuity of Care Document ---
Author Name [facility] Organization [facility] Care Team Providers Care Adult Probation Officer Name Role Phone [facility] Unavailable Unavailable Problems Combined list of problems from Department of Defense and Veterans Affairs facilities. It does not include entries that were removed or entered in error. Problem Status Onset Date Problem Type Date of Resolution Comments Source Admits alcohol use Active Condition [facility] Anxiety Active Condition [facility] Cannabis abuse Active Condition [facility] Cannabis dependence, continuous Active Condition [facility] Cocaine user Active Condition [facility] Insomnia Active Condition [facility] Opioid dependence Active Condition [facility] Tobacco use Active Condition [facility] ASSESS PATIENT CONDITION WORK-RELATED OCCUPATIONAL DISEASE Active Condition DoD ADJUSTMENT DISORDER WITH DISTURBANCE OF EMOTIONS Active Condition [facility] 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 DoD OTHER SPECIFIED FAMILY CIRCUMSTANCES Active Condition [facility] PARTNER RELATIONAL PROBLEM Inactive Condition [facility] PSYCHIATRIC DIAGNOSIS OR CONDITION DEFERRED ON AXIS II Active Condition DoD ADJUSTMENT DISORDER WITH DISTURBANCE OF EMOTIONS AND CONDUCT Active Condition DoD CANDIDIASIS VAGINAL Active Condition DoD MISSED Inactive Condition DoD WITH THREATENED Inactive Condition DoD NORMAL EXAMINATION Active Condition DoD ADHD, PREDOMINANTLY INATTENTIVE TYPE Active Condition DoD DEPRESSION Active Condition DoD BIPOLAR DISORDER Active Condition DoD MENIERE'S DISEASE Active Condition DoD BIPOLAR DISORDER NOS Active Condition DoD ANXIETY DISORDER NOS Active Condition DoD Laboratory Studies Active Condition DoD visit for: follow-up exam Active Condition DoD CELLULITIS Inactive Condition DoD CONDYLOMA ACUMINATUM Active Condition DoD CANDIDIASIS Active Condition DoD ACNE Active Condition DoD CLOSED FRACTURE OF ANKLE - MEDIAL MALLEOLUS Active Condition DoD BRONCHITIS Inactive Condition DoD UPPER RESPIRATORY INFECTION Active Condition DoD MAJOR DEPRESSION, RECURRENT Active Condition DoD FRACTURE OF ANKLE Active Condition DoD CLOSED FRACTURE OF ANKLE - BIMALLEOLAR Active Condition DoD Observation For Suspected Condition Active Condition DoD SINUSITIS ACUTE SUPPURATIVE Active Condition DoD visit for: screening exam Active Condition DoD ALLERGIC RHINITIS Active Condition DoD NON-NEOPLASTIC NEVUS Active Condition DoD visit for: screening exam for malignant neoplasm cervix Active Condition DoD Contraceptives Active Condition DoD Pelvic Exam (Internal) Inactive Condition DoD LUMBAGO Active Condition DoD muscle cramps in the thigh (upper leg) Active Condition DoD BENIGN PAROXYSMAL POSITIONAL VERTIGO Active Condition Returned from t his morning. No new sxms. No indication for head imaging at this time, but would consider if sxms change or worsen. History and exam demetrai suggestive of BPPV and no exam findings to suggest otherwise. 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 Called pharmacy and has no replacement for meclizine. Will attempt hydroxyzine for n/v sxms. Naprosyn for KIMBROUGH. DoD headache Inactive Condition DoD abdominal pain Active Condition DoD dizziness Inactive Condition 1 L NS karrie us x 1, then reeval DoD ESOPHAGEAL REFLUX Active Condition DoD COMMON COLD Active Condition DoD ankle joint pain Active Condition DoD BLISTER Active Condition DoD BACKACHE Active Condition DoD Need For Vaccination Hepatitis A Active Condition DoD Vaccines Prophylactic Need Against Viral Diseases Inactive Condition DoD Vaccines Prophylactic Need Against Bacterial Diseases Active Condition DoD Vaccines Prophylactic Need Against Combinations Of Diseases Active Condition DoD lower back pain Active Condition DoD visit for: services physical Active Condition DoD visit for: screening exam pulmonary tuberculosis Active Condition DoD allergies Active Condition DoD visit for: ears / hearing exam Inactive Condition DoD ASSESSMENT OF PATIENT CONDITION WORK-RELATED Active Condition DoD ROUTINE PELVIC EXAM Active Condition T-con administratively closed per Dr Rhoades. DoD DYSTHYMIC DISORDER (DEPRESSIVE NEUROSIS) Active Condition DoD REFRACTIVE ERROR - MYOPIA Active Condition DoD ASTIGMATISM - REGULAR Active Condition DoD blurry vision Active Condition DoD ROUTINE GYNECOLOGICAL EXAM WITH CERVICAL PAP SMEAR Active Condition Explained to pt that the couple needs to try to get for a solid year before fertility testing. 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 Pt ed ovulation, taking temp and intercourse timing. DoD visit for: administrative purpose Active Condition DoD CONSTIPATION Inactive Condition TTT LLQ corresponds to FOS in LLQ on xray. Exam was very benign. No fever or vag d/c. DoD AXIS IV PSYCHOSOCIAL AND ENVIRONMENTAL PROBLEMS Active Condition DoD NO PSYCHIATRIC DIAGNOSIS ON AXIS III Inactive Condition DoD AXIS IV PROBLEMS PRIMARY SUPPORT GROUP Active Condition DoD ATTENTION-DEFICI T HYPERACTIVITY DISORDER Active Condition DoD NO PSYCHIATRIC DIAGNOSIS ON AXIS II Inactive Condition DoD AXIS V GLOBAL ASSESS OF FUNCTIONING (GAF) SCALE ___ (100-0) Active Condition 60 DoD BORDERLINE PERSONALITY DISORDER Active Condition DoD breast pain Active Condition bilat x 6+ months; breasts are lumpy bilat, will try to obtain a mammogram; Have pt use local heat/ supportive bra/ ibuprofen prnhas gained approx 20+ lbs in approx 6 months; went from 38D to 38DD bra. Instructed to have bra size checked and to be DoD ATYPICAL CHEST PAIN Active Condition smoker; instruc greyson to consider nicotine cessation [facility] Test Active Condition [facility] Diagnosis: ICD-10-CM F12.20 Cannabis dependence, uncomplicated Active Diagnosis [facility] Diagnosis: ICD-10-CM F12.10 Cannabis abuse, uncomplicated Active Diagnosis [facility] Diagnosis: ICD-10-CM F11.90 Opioid use, unspecified, uncomplicated Active Diagnosis [facility] Diagnosis: ICD-10-CM F60.3 Borderline personality disorder Active Diagnosis [facility] Diagnosis: ICD-10-CM Z71.81 Spiritual or anabaptism counseling Active Diagnosis [facility] Diagnosis: ICD-10-CM Z63.0 Problems in relationship with spouse or partner Active Diagnosis [facility] Diagnosis: ICD-10-CM F43.12 Post-traumatic stress disorder, chronic Active Diagnosis [facility] Diagnosis: ICD-10-CM F14.90 Cocaine use, unspecified, uncomplicated Active Diagnosis [facility] Diagnosis: ICD-10-CM Z71.89 Other specified counseling Active Diagnosis [facility] Diagnosis: ICD-10-CM F10.90 Alcohol use, unspecified, uncomplicated Active Diagnosis [facility] Diagnosis: ICD-10-CM R45.851 Suicidal ideations Active Diagnosis [facility] Diagnosis: ICD-10-CM Z71.9 Counseling, unspecified Active Diagnosis [facility] Diagnosis: ICD-10-CM N64.9 Disorder of breast, unspecified Active Diagnosis [facility] Diagnosis: ICD-10-CM F19.99 Oth psychoactive substance use, unsp w unsp disorder Active Diagnosis [facility] Diagnosis: ICD-10-CM G47.00 Insomnia, unspecified Active Diagnosis [facility] Diagnosis: ICD-10-CM F41.9 Anxiety disorder, unspecified Active Diagnosis [facility] Admit Reason: POLYSUBSTANCE DEPENDENCE Active Diagnosis [facility] Diagnosis: ICD-10-CM Z59.9 Problem related to housing and economic circumstances, unsp Active Diagnosis [facility] Diagnosis: ICD-10-CM F10.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 Medication Details Route Status Patient Instructions Prescription Expires Prescription Number Last Dispense Date Ordering Provider Order Date Order Qty Source ACETAMINOPH EN 500MG TAB TAKE ONE TABLET BY MOUTH FOUR TIMES A DAY NEEDED FOR PAIN CAUTION: DO NOT EXCEED 4000MG PER DAY ACETAMIN OPHEN (APAP) FROM ALL MEDS. ORAL DISCONT INUED (EDIT) 08/21/2025 [id number] 4 DANIEL GOMEZ 2023 28 [facility] ACETAMINOPH EN 500MG TAB TAKE ONE TABLET BY MOUTH FOUR TIMES A DAY NEEDED FOR PAIN CAUTION: DO NOT EXCEED 4000MG PER DAY ACETAMIN OPHEN (APAP) FROM ALL MEDS. ORAL 10/08/2024 [id number] 4 [facility]H [facility] 2023 100 [facility] ALBUTEROL SO4 90MCG/ACTUA T (CFC-F) INHL,ORAL,8 .5GM INHALE 2 PUFFS BY ORAL INHALATI ON FOUR TIMES A DAY NEEDED FOR COPD SHAKE WELL. RINSE MOUTHPIE CE FREQUENT LY TO PREVENT CLOGGING . RESPIR ATORY (INHAL ATION) DISCONT INUED (EDIT) 09/19/2024 [id number] 4 NATIVIDAD GOMEZHURI 2023 1 [facility] ALBUTEROL SO4 90MCG/ACTUA T (CFC-F) INHL,ORAL,8 .5GM INHALE 2 PUFFS BY ORAL INHALATI ON FOUR TIMES A DAY NEEDED FOR COPD SHAKE WELL. RINSE MOUTHPIE CE FREQUENT LY TO PREVENT CLOGGING . RESPIR ATORY (INHAL ATION) 10/08/2024 [id number] 4 [facility] [place] 2023 1 [facility] ATOMOXETINE 40MG CAP TAKE ONE CAPSULE BY MOUTH EVERY MORNING ORAL DISCONT INUED (EDIT) 10/08/2024 [id number] 4 [facility] [place] 2023 30 [facility] ATOMOXETINE 40MG CAP TAKE ONE CAPSULE BY MOUTH EVERY MORNING ORAL DISCONT INUED (EDIT) 08/31/2025 [id number] 4 BRYAN SHAIKH 2023 10 [facility] ATOMOXETINE 40MG CAP TAKE ONE CAPSULE BY MOUTH EVERY MORNING ORAL DISCONT INUED (EDIT) 08/21/2025 [id number] 4 GONZALEZESTELAElizabeth DANIEL 2023 7 [facility] ATOMOXETINE 40MG CAP TAKE ONE CAPSULE BY MOUTH EVERY MORNING ORAL DISCONT INUED 05/09/2025 [id number] 4 SHARONA MOFFETT 2023 90 [facility] ATOMOXETINE 40MG CAP TAKE ONE CAPSULE BY MOUTH EVERY MORNING ORAL 04/21/2024 [id number] 4 SHARONA MOFFETT 2023 30 [facility] ATOMOXETINE 40MG CAP TAKE ONE CAPSULE BY MOUTH EVERY MORNING ORAL 02/15/2024 [id number] 4 SHARONA MOFFETT 2023 30 [facility] ATOMOXETINE 60MG CAP TAKE ONE CAPSULE BY MOUTH EVERY MORNING ORAL ACTIVE 03/30/2025 [id number] 5 EDU GRIFFIN 2024 90 [facility] ATOMOXETINE 60MG CAP TAKE ONE CAPSULE BY MOUTH EVERY MORNING ORAL 12/09/2024 [id number] 4 SHARONA MOFFETT 2023 90 [facility] BUPROPION HCL 100MG 12HR TAB,SA TAKE ONE TABLET BY MOUTH ONCE A DAY FOR DEPRESSI ON SWALLOW WHOLE - DO NOT CRUSH OR CHEW. ORAL DISCONT INUED BY ALEXANDRE R 05/23/2025 [id number] 4 SHARONA MOFFETTESTHA 2023 30 [facility] BUPROPION HCL 150MG 24HR TAB,SA TAKE ONE TABLET BY MOUTH ONCE A DAY SWALLOW WHOLE - DO NOT CRUSH OR CHEW. ORAL DISCONT INUED (EDIT) 08/31/2025 [id number] 4 BRYAN SHAIKH 2023 10 [facility] BUPROPION HCL 150MG 24HR TAB,SA TAKE ONE TABLET BY MOUTH ONCE A DAY FOR DEPRESSI ON SWALLOW WHOLE - DO NOT CRUSH OR CHEW. ORAL DISCONT INUED (EDIT) 08/21/2025 [id number] 4 DANIEL GOMEZ 2023 7 [facility] BUPROPION HCL 300MG 24HR TAB,SA TAKE ONE TABLET BY MOUTH ONCE A DAY FOR DEPRESSI ON SWALLOW WHOLE - DO NOT CRUSH OR CHEW. ORAL DISCONT INUED (EDIT) 10/03/2024 [id number] 4 [facility] [place] 2023 7 [facility] BUPROPION HCL 300MG 24HR TAB,SA TAKE ONE TABLET BY MOUTH ONCE A DAY FOR DEPRESSI ON SWALLOW WHOLE - DO NOT CRUSH OR CHEW. ORAL 11/16/2024 [id number] 5 SHARONA MOFFETT 2024 30 [facility] BUPROPION HCL 300MG 24HR TAB,SA TAKE ONE TABLET BY MOUTH ONCE A DAY FOR DEPRESSI ON SWALLOW WHOLE - DO NOT CRUSH OR CHEW. ORAL 10/08/2024 [id number] 4 [facility] [place] 2023 30 [facility] BUSPIRONE HCL 15MG TAB TAKE ONE TABLET BY MOUTH THREE TIMES A DAY DO NOT TAKE WITH GRAPEFRU IT JUICE. ORAL DISCONT INUED BY ALEXANDRE Gray 04/09/2025 [id number] 5 EDU GRIFFIN 2024 270 [facility] BUSPIRONE HCL 15MG TAB TAKE ONE TABLET BY MOUTH THREE TIMES A DAY DO NOT TAKE WITH GRAPEFRU IT JUICE. ORAL DISCONT INUED 03/11/2025 [id number] 5 SHARONA MOFFETT 2024 270 [facility] BUSPIRONE HCL 15MG TAB TAKE ONE-HALF TABLET BY MOUTH THREE TIMES A DAY FOR ANXIETY DO NOT TAKE WITH GRAPEFRU IT JUICE. ORAL DISCONT INUED (EDIT) 10/08/2024 [id number] 4 [facility] [place] 2023 45 [facility] BUSPIRONE HCL 15MG TAB TAKE ONE-HALF TABLET BY MOUTH THREE TIMES A DAY DO NOT TAKE WITH GRAPEFRU IT JUICE. ORAL DISCONT INUED (EDIT) 09/29/2024 [id number] 4 BRYAN SHAIKH 2023 15 [facility] BUSPIRONE HCL 15MG TAB TAKE ONE TABLET BY MOUTH THREE TIMES A DAY DO NOT TAKE WITH GRAPEFRU IT JUICE. ORAL 12/09/2024 [id number] 5 SHARONA MOFFETT 2024 270 [facility] ESCITALOPRA M OXALATE 20MG TAB TAKE ONE AND ONE-HALF TABLETS BY MOUTH EVERY MORNING ORAL ACTIVE 04/09/2025 [id number] 5 EDU GRIFFIN 2024 135 [facility] ESCITALOPRA M OXALATE 20MG TAB TAKE ONE AND ONE-HALF TABLETS BY MOUTH EVERY MORNING ORAL DISCONT INUED 03/11/2025 [id number] 5 SHARONA MOFFETT 2024 135 [facility] ESCITALOPRA M OXALATE 20MG TAB TAKE ONE AND ONE-HALF TABLETS BY MOUTH EVERY MORNING ORAL DISCONT INUED 02/01/2025 [id number] 5 SHARONA MOFFETT 2024 90 [facility] ESCITALOPRA M OXALATE 20MG TAB TAKE ONE AND ONE-HALF TABLETS BY MOUTH EVERY MORNING ORAL DISCONT INUED 10/08/2024 [id number] [facility] [place] 2023 45 [facility] ESCITALOPRA M OXALATE 20MG TAB TAKE ONE AND ONE-HALF TABLETS BY MOUTH EVERY MORNING ORAL DISCONT INUED (EDIT) 08/31/2025 [id number] 4 BRYAN SHAIKH 2023 15 [facility] ESCITALOPRA M OXALATE 20MG TAB TAKE ONE AND ONE-HALF TABLETS BY MOUTH EVERY MORNING ORAL DISCONT INUED (EDIT) 08/21/2025 [id number] 4 DANIEL GOMEZ 2023 11 [facility] ESCITALOPRA M OXALATE 20MG TAB TAKE ONE AND ONE-HALF TABLETS BY MOUTH ONCE A DAY ORAL DISCONT INUED 03/23/2025 [id number] 4 SHARONA MOFFETT 2023 135 [facility] ESCITALOPRA M OXALATE 20MG TAB TAKE ONE-HALF TABLET BY MOUTH ONCE A DAY FOR 14 DAYS, AND TAKE ONE TABLET ONCE A DAY FOR 60 DAYS ORAL DISCONT INUED (EDIT) 03/30/2024 [id number] 4 BETINA JOSEYJAYLON LEEESTHA 2023 67 [facility] ESCITALOPRA M OXALATE 20MG TAB TAKE ONE AND ONE-HALF TABLETS BY MOUTH EVERY MORNING FOR DEPRESSI ON/ANXIE TY ORAL 11/21/2024 [id number] 5 BETINA JOSEYJAYLON LEEESTHA 2024 45 [facility] ESCITALOPRA M OXALATE 20MG TAB TAKE ONE AND ONE-HALF TABLETS BY MOUTH EVERY MORNING ORAL 10/10/2024 [id number] 5 BETINA JOSEYJAYLON DEVLIN 2024 45 [facility] HYDROXYZINE HCL 25MG TAB TAKE ONE TABLET BY MOUTH THREE TIMES A DAY NEEDED *MAY CAUSE DROWSINE SS* ORAL DISCONT INUED BY PROVIDE R 08/22/2025 [id number] 4 [facility] [place] 2023 21 [facility] HYDROXYZINE HCL 50MG TAB TAKE ONE TABLET BY MOUTH AT BEDTIME NEEDED *MAY CAUSE DROWSINE SS* ORAL DISCONT INUED BY PROVIDE R 08/24/2025 [id number] 4 JESUSITA TRAN 2023 7 [facility] IBUPROFEN 800MG TAB TAKE ONE TABLET BY MOUTH THREE TIMES A DAY NEEDED FOR PAIN TAKE WITH FOOD. ORAL DISCONT INUED (EDIT) 08/21/2025 [id number] 4 DANIEL GOMEZ 2023 21 [facility] IBUPROFEN 800MG TAB TAKE ONE TABLET BY MOUTH THREE TIMES A DAY NEEDED FOR PAIN TAKE WITH FOOD. ORAL 10/08/2024 [id number] 4 [facility] [place] 2023 60 [facility] LORATADINE 10MG TAB TAKE ONE TABLET BY MOUTH ONCE A DAY NEEDED ON EMPTY STOMACH ORAL DISCONT INUED (EDIT) 08/31/2025 [id number] 4 BRYAN SHAIKH NDRA S 2023 10 [facility] LORATADINE 10MG TAB TAKE ONE TABLET BY MOUTH ONCE A DAY NEEDED FOR ALLERGIC RHINITIS ON EMPTY STOMACH ORAL DISCONT INUED (EDIT) 08/21/2025 [id number] 4 DANIEL GOMEZ 2023 7 [facility] LORATADINE 10MG TAB TAKE ONE TABLET BY MOUTH ONCE A DAY NEEDED FOR ALLERGIC RHINITIS ON EMPTY STOMACH ORAL 10/08/2024 [id number] 4 [facility] [place] 2023 30 [facility] MELATONIN 3MG CAP/TAB TAKE ONE CAP/TAB BY MOUTH AT BEDTIME ORAL ACTIVE 05/09/2025 [id number] 5 EDU GRIFFIN 2024 120 [facility] MELATONIN 3MG CAP/TAB TAKE ONE CAP/TAB BY MOUTH AT BEDTIME ORAL DISCONT INUED 04/10/2025 [id number] SHARONA MOFFETT 2024 120 [facility] MELATONIN 3MG CAP/TAB TAKE ONE CAP/TAB BY MOUTH AT BEDTIME FOR SLEEP ORAL DISCONT INUED 02/15/2025 [id number] 5 SHARONA MOFFETT 2024 120 [facility] MELATONIN 3MG CAP/TAB TAKE ONE CAP/TAB BY MOUTH AT BEDTIME NEEDED ORAL DISCONT INUED (EDIT) 08/31/2025 [id number] 4 BRYAN SHAIKH NDRA S 2023 10 [facility] MELATONIN 3MG CAP/TAB TAKE ONE CAP/TAB BY MOUTH AT BEDTIME NEEDED ORAL DISCONT INUED (EDIT) 08/24/2025 [id number] 4 MARCJESUSITA JERSEY Gagnon 2023 7 [facility] MELATONIN 3MG CAP/TAB TAKE ONE CAP/TAB BY MOUTH AT BEDTIME NEEDED FOR SLEEP ORAL 10/08/2024 [id number] 4 [facility] [place] 2023 30 [facility] NALOXONE HCL 4MG/SPRAY SOLN,SPRAY, NASAL USE 1 SPRAY (4MG) INTO ONE NOSTRIL ONLY ONE-TIME FOR OPIOID OVERDOSE DO NOT PRIME NASAL SPRAY. SPRAY ONE DOSE IN ONE NOSTRIL, GIVE ADDITION AL DOSE IF PATIENT DOES NOT START BREATHIN G WITHIN 2-3 MINUTES OR STOPS BREATHIN G AGAIN. CALL 911. IF USED, NOTIFY PROVIDER . NASAL DISCONT INUED 09/18/2024 [id number] 4 DANIEL GOMEZ 2023 2 [facility] NALOXONE HCL 4MG/SPRAY SOLN,SPRAY, NASAL USE 1 SPRAY (4MG) INTO ONE NOSTRIL ONLY ONE-TIME FOR OPIOID OVERDOSE DO NOT PRIME NASAL SPRAY. SPRAY ONE DOSE IN ONE NOSTRIL, GIVE ADDITION AL DOSE IF PATIENT DOES NOT START BREATHIN G WITHIN 2-3 MINUTES OR STOPS BREATHIN G AGAIN. CALL 911. IF USED, NOTIFY PROVIDER . NASAL 10/11/2024 [id number] 4 SHARONA MOFFETT 2023 2 [facility] NICOTINE 14MG/24HRS PATCH APPLY 1 PATCH TO SKIN SITE EVERY MORNING REMOVE OLD PATCH BEFORE APPLYING NEW ONE. ROTATE SITES. DO NOT SMOKE WHILE WEARING PATCH. TRANSD ERMAL ACTIVE 05/23/2025 [id number] 4 SHARONA MOFFETT 2023 28 [facility] NICOTINE 21MG/24HRS PATCH APPLY 1 PATCH TO SKIN SITE EVERY MORNING REMOVE OLD PATCH BEFORE APPLYING NEW ONE. ROTATE SITES. DO NOT SMOKE WHILE WEARING PATCH. TRANSD ERMAL DISCONT INUED (EDIT) 09/19/2024 [id number] 4 DANTE GOMEZRI 2023 28 [facility] NICOTINE 21MG/24HRS PATCH APPLY 1 PATCH TO SKIN SITE EVERY MORNING FOR TOBACCO CESSATIO N REMOVE OLD PATCH BEFORE APPLYING NEW ONE. ROTATE SITES. DO NOT SMOKE WHILE WEARING PATCH. TRANSD ERMAL DISCONT INUED 05/23/2025 [id number] 4 SHARONA MOFFETT 2023 28 [facility] NICOTINE 21MG/24HRS PATCH APPLY 1 PATCH TO SKIN SITE EVERY MORNING REMOVE OLD PATCH BEFORE APPLYING NEW ONE. ROTATE SITES. DO NOT SMOKE WHILE WEARING PATCH. TRANSD ERMAL 12/12/2024 [id number] 5 SHARONA MOFFETT 2024 14 [facility] NICOTINE 21MG/24HRS PATCH APPLY 1 PATCH TO SKIN SITE EVERY MORNING REMOVE OLD PATCH BEFORE APPLYING NEW ONE. ROTATE SITES. DO NOT SMOKE WHILE WEARING PATCH. TRANSD ERMAL 10/08/2024 [id number] 4 [facility] [place] 2023 28 [facility] NICOTINE 7MG/24HRS PATCH APPLY 1 PATCH TO SKIN SITE EVERY MORNING REMOVE OLD PATCH BEFORE APPLYING NEW ONE. ROTATE SITES. DO NOT SMOKE WHILE WEARING PATCH. TRANSD ERMAL ACTIVE 05/23/2025 [id number] 4 SHARONA MOFFETT 2023 28 [facility] NICOTINE POLACRILEX 2MG TAB,CHEWG GUM CHEW 1 PIECE OF GUM BY MOUTH EVERY 4 HOURS NEEDED CHEW GUM UNTIL TINGLING SENSATIO N, THEN PARK THE GUM BETWEEN CHEEK AND GUM AREA. REPEAT (RE-CHEW ) WHEN TINGLING STOPS. ORAL 12/12/2024 [id number] SHARONA MOFFETT 2024 110 [facility] NICOTINE POLACRILEX 4MG TAB,CHEWG GUM CHEW 1 PIECE OF GUM BY MOUTH EVERY 4 HOURS NEEDED CHEW GUM UNTIL TINGLING SENSATIO N, THEN PARK THE GUM BETWEEN CHEEK AND GUM AREA. REPEAT (RE-CHEW ) WHEN TINGLING STOPS. ORAL DISCONT INUED (EDIT) 09/19/2024 [id number] 4 DANIEL GOMEZ 2023 110 [facility] NICOTINE POLACRILEX 4MG TAB,CHEWG GUM CHEW 1 PIECE OF GUM BY MOUTH EVERY 4 HOURS NEEDED CHEW GUM UNTIL TINGLING SENSATIO N, THEN PARK THE GUM BETWEEN CHEEK AND GUM AREA. REPEAT (RE-CHEW ) WHEN TINGLING STOPS. ORAL 10/08/2024 [id number] 4 [facility] [place] 2023 110 [facility] OLANZAPINE 10MG TAB TAKE ONE-HALF TABLET BY MOUTH AT BEDTIME ORAL DISCONT INUED BY ALEXANDRE R 04/09/2025 [id number] 5 EDU GRIFFIN 2024 45 [facility] OLANZAPINE 10MG TAB TAKE ONE-HALF TABLET BY MOUTH AT BEDTIME ORAL DISCONT INUED 02/09/2025 [id number] 5 SHARONA MOFFETT 2024 30 [facility] OLANZAPINE 10MG TAB TAKE ONE-HALF TABLET BY MOUTH AT BEDTIME ORAL DISCONT INUED (EDIT) 09/29/2024 [id number] 4 BRYAN SHAIKH 2023 5 [facility] OLANZAPINE 10MG TAB TAKE ONE-HALF TABLET BY MOUTH AT BEDTIME FOR DEPRESSI ON ORAL 11/16/2024 [id number] 5 SHARONA MOFFETT 2024 15 [facility] OLANZAPINE 10MG TAB TAKE ONE-HALF TABLET BY MOUTH AT BEDTIME FOR DEPRESSI ON ORAL 10/08/2024 [id number] 4 [facility] [place] 2023 15 [facility] OLANZAPINE 5MG TAB TAKE ONE-HALF TABLET BY MOUTH AT BEDTIME ORAL DISCONT INUED BY PROVIDE R 03/23/2025 [id number] 4 SHARONA MOFFETTESTHA 2023 15 [facility] PRAZOSIN HCL 1MG CAP TAKE ONE CAPSULE BY MOUTH AT BEDTIME FOR NIGHTMAR ES MAY CAUSE DIZZINES S OR DROWSINE SS. ORAL DISCONT INUED (EDIT) 08/21/2025 [id number] 4 DANIEL GOMEZ 2023 7 [facility] PRAZOSIN HCL 2MG CAP TAKE ONE CAPSULE BY MOUTH AT BEDTIME MAY CAUSE DIZZINES S OR DROWSINE SS. ORAL DISCONT INUED BY PROVIDE R 08/24/2025 [id number] 4 JESUSITA TRAN 2023 7 [facility] TRAZODONE HCL 100MG TAB TAKE ONE AND ONE-HALF TABLETS BY MOUTH AT BEDTIME ORAL ACTIVE 03/11/2025 [id number] 5 SHARONA MOFFETT 2024 135 [facility] TRAZODONE HCL 100MG TAB TAKE ONE AND ONE-HALF TABLETS BY MOUTH AT BEDTIME ORAL DISCONT INUED (EDIT) 08/31/2025 [id number] 4 BRYAN SHAIKH S 2023 15 [facility] TRAZODONE HCL 100MG TAB TAKE ONE AND ONE-HALF TABLETS BY MOUTH AT BEDTIME ORAL DISCONT INUED (EDIT) 08/24/2025 [id number] 4 JESUSITA TRAN 2023 11 [facility] TRAZODONE HCL 100MG TAB TAKE ONE-HALF TABLET BY MOUTH AT BEDTIME ORAL DISCONT INUED (EDIT) 08/22/2025 [id number] 4 [facility] [place] 2023 4 [facility] TRAZODONE HCL 100MG TAB TAKE ONE AND ONE-HALF TABLETS BY MOUTH AT BEDTIME FOR INSOMNIA ORAL 11/16/2024 [id number] 5 SHARONA MOFFETT 2024 45 [facility] TRAZODONE HCL 100MG TAB TAKE ONE AND ONE-HALF TABLETS BY MOUTH AT BEDTIME FOR INSOMNIA ORAL 10/08/2024 [id number] 4 [facility] [place] 2023 45 [facility] TRIAMCINOLO NE ACETONIDE 0.1% CREAM,TOP APPLY LIGHTLY TO AFFECTED AREA(S) TWICE A DAY FOR PSORIASI S (EXTERNA L USE ONLY) TOPICA L DISCONT INUED (EDIT) 09/19/2024 [id number] 4 DANIEL GOMEZ 2023 80 [facility] TRIAMCINOLO NE ACETONIDE 0.1% CREAM,TOP APPLY LIGHTLY TO AFFECTED AREA(S) TWICE A DAY FOR PSORIASI S (EXTERNA L USE ONLY) TOPICA L 10/08/2024 [id number] [place] 2023 80 [facility] [place] OINT,TOP APPLY 0.025 TO AFFECTED AREA(S) ONCE A DAY TOPICA L ACTIVE SHARONA MOFFETT 2023 [facility] Allergies, Adverse Reactions, Alerts Combined list of allergies from [facility] Defense and [facility] facilities. It does not include entries that were removed or entered in error. Substance Category Reaction Severity Reaction type Status Date Reported Comments Source BACTRIM Propensity to adverse reactions to drug (finding) Eruption MODERATE active 4 [facility] BACTRIM (SULFAMETHOXA ZOLE/TRIMETHO PRIM) Drug allergy (disorder) Rash active 5 [place] Anil Bond , [place] CONCERTA Propensity to adverse reactions to drug (finding) Eruption MODERATE active 4 [facility] FLUCONAZOLE Propensity to adverse reactions to drug (finding) Eruption SEVERE active 4 [facility] LAMICTAL Propensity to adverse reactions to drug (finding) Eruption MODERATE active 4 [facility] RISPERDAL Propensity to adverse reactions to drug (finding) Eruption MODERATE active 4 [facility] Immunizations Combined list of available immunizations from the Department of Defense and [facility] Affairs facilities. Immunization Series Date Given Administered By Site Reaction Lot Number CVX Code Drug Chromium Plater Status Comments Source typhoid Vi capsular polysaccharid e vaccine 1 2007 [id number] Sanofi Pasteur (PMC) complet ed typhoid Vi capsular polysacch aride vaccine DoD measles, mumps and rubella virus vaccine 1 2007 UNK 03 Unknown (UNK) Not Given measles, mumps and rubella virus vaccine DoD poliovirus vaccine, inactivated 1 2007 [id number] Sanofi Pasteur (PMC) complet ed polioviru s vaccine, inactivat ed DoD influenza virus vaccine, split virus (incl. purified surface antigen)-reti red CODE 1 2007 [id number] 15 Sanofi Pasteur (PMC) complet ed influenza virus vaccine, split virus (incl. purified surface antigen)- retired CODE DoD varicella virus vaccine 1 2007 UNK 21 Unknown (UNK) Not Given varicella virus vaccine DoD hepatitis B vaccine, adult dosage 1 2007 UNK 43 Unknown (UNK) Not Given hepatitis B vaccine, adult dosage DoD hepatitis A vaccine, adult dosage 1 2007 [id number] [employer] (SKB) complet ed hepatitis A vaccine, adult dosage DoD meningococcal polysaccharid e (groups A, C, Y and W-135) diphtheria toxoid conjugate vaccine (MCV4P) 1 2007 [id number] Sanofi Pasteur (PMC) complet ed meningoco ccal polysacch aride (groups A, C, Y and W-135) diphtheri a toxoid conjugate vaccine (MCV4P) DoD tetanus toxoid, reduced diphtheria toxoid, and acellular pertu is vaccine, adsorbed 1 2007 [id number] 115 Sanofi Pasteur (PMC) complet ed tetanus toxoid, reduced diphtheri a toxoid, and acellular pertussis vaccine, adsorbed DoD Results Combined list of recent chemistry, hematology and other laboratory results from Department of Defense and [facility] Affairs, ranging from 15 months to all on record, depending upon the facility. Order Name Results Value Reference Range Date Interpretation Specimen Comments Source URINE DRUG SCREEN (STL) ETHANOL [MASS/VOLU ME] IN URINE <10.0mg /dL 0 - 9 09/03 Specimen Type: URINE Comment: The cut-off value for Fentanyl was laboratory developed and its performance characteris tics confirmed by the [facility] laboratory thru method comparison with reference laboratory and medication chart review. The laboratory is regulated under CLIA as qualified to perform high-comple xity testing. Fentanyl is used for clinical purposes in conjunction with other laboratory tests. Ordering Provider: EDU GOMEZ Report Released Date/Time: Sep 02, 2024 08:27 PM Reporting Lab: [facility] [place] [address] Performing Lab: [facility] DIVISION URINE DRUG SCREEN (STL) AMPHETAMIN E [PRESENCE] IN URINE BY SCREEN METHOD Negativ eng/mL 09/03 Specimen Type: URINE Comment: The cut-off value for Fentanyl was laboratory developed and its performance characteris tics confirmed by the [facility] laboratory thru method comparison with reference laboratory and medication chart review. The laboratory is regulated under CLIA as qualified to perform high-comple xity testing. Fentanyl is used for clinical purposes in conjunction with other laboratory tests. Ordering Provider: EDU GOMEZ Report Released Date/Time: Sep 02, 2024 08:27 PM Reporting Lab: [facility] [place] [address] Performing Lab: [facility] [address] DIVISION URINE DRUG SCREEN (STL) BENZOYLECG ONINE [PRESENCE] IN URINE Negativ eng/mL 09/03 Specimen Type: URINE Comment: The cut-off value for Fentanyl was laboratory developed and its performance characteris tics confirmed by the [facility] laboratory thru method comparison with reference laboratory and medication chart review. The laboratory is regulated under CLIA as qualified to perform high-comple xity testing. Fentanyl is used for clinical purposes in conjunction with other laboratory tests. Ordering Provider: EDU GOMEZ Report Released Date/Time: Sep 02, 2024 08:27 PM Reporting Lab: [facility] [place] [address] Performing Lab: [facility] URINE DRUG SCREEN (STL) BENZODIAZE PINES [PRESENCE] IN URINE BY SCREEN METHOD Negativ eng/mL 09/03 Specimen Type: URINE Comment: The cut-off value for Fentanyl was laboratory developed and its performance characteris tics confirmed by the [facility] laboratory thru method comparison with reference laboratory and medication chart review. The laboratory is regulated under CLIA as qualified to perform high-comple xity testing. Fentanyl is used for clinical purposes in conjunction with other laboratory tests. Ordering Provider: EDU GOMEZ Report Released Date/Time: Sep 02, 2024 08:27 PM Reporting Lab: [facility] [place] [address] Performing Lab: [facility] URINE DRUG SCREEN (STL) CANNABINOI DS [PRESENCE] IN URINE BY SCREEN METHOD POSITIV Eng/mL 09/03 Specimen Type: URINE Comment: The cut-off value for Fentanyl was laboratory developed and its performance characteris tics confirmed by the [facility] laboratory thru method comparison with reference laboratory and medication chart review. The laboratory is regulated under CLIA as qualified to perform high-comple xity testing. Fentanyl is used for clinical purposes in conjunction with other laboratory tests. Ordering Provider: EDU GOMEZ Report Released Date/Time: Sep 02, 2024 08:27 PM Reporting Lab: [facility] [place] [address] Performing Lab: [facility] [address] [facility] URINE DRUG SCREEN (STL) METHADONE [PRESENCE] IN URINE Negativ eng/mL 09/03 Specimen Type: URINE Comment: The cut-off value for Fentanyl was laboratory developed and its performance characteris tics confirmed by the [facility] laboratory thru method comparison with reference laboratory and medication chart review. The laboratory is regulated under CLIA as qualified to perform high-comple xity testing. Fentanyl is used for clinical purposes in conjunction with other laboratory tests. Ordering Provider: EDU GOMEZ Report Released Date/Time: Sep 02, 2024 08:27 PM Reporting Lab: [facility] [address] Performing Lab: [facility] [id number] [place] [address] URINE DRUG SCREEN (STL) OPIATES [PRESENCE] IN URINE BY SCREEN METHOD Negativ eng/mL 09/03 Specimen Type: URINE Comment: The cut-off value for Fentanyl was laboratory developed and its performance characteris tics confirmed by the [facility] laboratory thru method comparison with reference laboratory and medication chart review. The laboratory is regulated under CLIA as qualified to perform high-comple xity testing. Fentanyl is used for clinical purposes in conjunction with other laboratory tests. Ordering Provider: EDU GOMEZ Report Released Date/Time: Sep 02, 2024 08:27 PM Reporting Lab: [facility] [address] Performing Lab: [facility] [phone] [place] [address] URINE DRUG SCREEN (STL) CREATININE [MASS/VOLU ME] IN URINE 110.1 mg/dL 47.0 - 110.0 09/03 H Specimen Type: URINE Comment: The cut-off value for Fentanyl was laboratory developed and its performance characteris tics confirmed by the [facility] laboratory thru method comparison with reference laboratory and medication chart review. The laboratory is regulated under CLIA as qualified to perform high-comple xity testing. Fentanyl is used for clinical purposes in conjunction with other laboratory tests. Ordering Provider: EDU GOMEZ Report Released Date/Time: Sep 02, 2024 08:27 PM Reporting Lab: [facility] [place] [address] Performing Lab: [facility] URINE DRUG SCREEN (STL) OXYCODONE CUTOFF [MASS/VOLU ME] IN URINE FOR SCREEN METHOD Negativ eng/mL 09/03 Specimen Type: URINE Comment: The cut-off value for Fentanyl was laboratory developed and its performance characteris tics confirmed by the [facility] laboratory thru method comparison with reference laboratory and medication chart review. The laboratory is regulated under CLIA as qualified to perform high-comple xity testing. Fentanyl is used for clinical purposes in conjunction with other laboratory tests. Ordering Provider: EDU GOMEZ Report Released Date/Time: Sep 02, 2024 08:27 PM Reporting Lab: [facility] [place] [address] Performing Lab: [facility] DIVISION URINE DRUG SCREEN (STL) BUPRENORPH INE [PRESENCE] IN URINE Negativ eng/mL 09/03 Specimen Type: URINE Comment: The cut-off value for Fentanyl was laboratory developed and its performance characteris tics confirmed by the [facility] laboratory thru method comparison with reference laboratory and medication chart review. The laboratory is regulated under CLIA as qualified to perform high-comple xity testing. Fentanyl is used for clinical purposes in conjunction with other laboratory tests. Ordering Provider: EDU GOMEZ Report Released Date/Time: Sep 02, 2024 08:27 PM Reporting Lab: [facility] [place] [address] Performing Lab: [facility] [facility] URINE DRUG SCREEN (STL) FENTANYL [PRESENCE] IN URINE Negativ eng/mL 09/03 Specimen Type: URINE Comment: The cut-off value for Fentanyl was laboratory developed and its performance characteris tics confirmed by the [facility] laboratory thru method comparison with reference laboratory and medication chart review. The laboratory is regulated under CLIA as qualified to perform high-comple xity testing. Fentanyl is used for clinical purposes in conjunction with other laboratory tests. Ordering Provider: EDU GOMEZ Report Released Date/Time: Sep 02, 2024 08:27 PM Reporting Lab: [facility] [place] [phone] Performing Lab: [facility] [place] [id number] [place] [address] URINE DRUG SCREEN (STL) ETHANOL [MASS/VOLU ME] IN URINE Negativ emg/dL 0 - 20 08/25 Specimen Type: URINE Comment: The cut-off value for Fentanyl was laboratory developed and its performance characteris tics confirmed by the [facility] laboratory thru method comparison with reference laboratory and medication chart review. The laboratory is regulated under CLIA as qualified to perform high-comple xity testing. Fentanyl is used for clinical purposes in conjunction with other laboratory tests. Ordering Provider: EDU GOMEZ Report Released Date/Time: Aug 24, 2024 07:24 PM Reporting Lab: [address] [address] Performing Lab: [address] [address] [facility] URINE DRUG SCREEN (STL) AMPHETAMIN E [PRESENCE] IN URINE BY SCREEN METHOD Negativ eng/mL 08/25 Specimen Type: URINE Comment: The cut-off value for Fentanyl was laboratory developed and its performance characteris tics confirmed by the [facility] laboratory thru method comparison with reference laboratory and medication chart review. The laboratory is regulated under CLIA as qualified to perform high-comple xity testing. Fentanyl is used for clinical purposes in conjunction with other laboratory tests. Ordering Provider: EDU GOMEZ Report Released Date/Time: Aug 24, 2024 07:24 PM Reporting Lab: [facility] [address] [facility] [place] [address] Performing Lab: [facility] [address] [facility] [address] [facility] URINE DRUG SCREEN (STL) BENZOYLECG ONINE [PRESENCE] IN URINE Negativ eng/mL 08/25 Specimen Type: URINE Comment: The cut-off value for Fentanyl was laboratory developed and its performance characteris tics confirmed by the [facility] laboratory thru method comparison with reference laboratory and medication chart review. The laboratory is regulated under CLIA as qualified to perform high-comple xity testing. Fentanyl is used for clinical purposes in conjunction with other laboratory tests. Ordering Provider: EDU GOMEZ Report Released Date/Time: Aug 24, 2024 07:24 PM Reporting Lab: [facility] [address] [facility] [address] Performing Lab: [facility] [address] [facility] [address] [facility] URINE DRUG SCREEN (STL) BENZODIAZE PINES [PRESENCE] IN URINE BY SCREEN METHOD Negativ eng/mL 08/25 Specimen Type: URINE Comment: The cut-off value for Fentanyl was laboratory developed and its performance characteris tics confirmed by the [facility] laboratory thru method comparison with reference laboratory and medication chart review. The laboratory is regulated under CLIA as qualified to perform high-comple xity testing. Fentanyl is used for clinical purposes in conjunction with other laboratory tests. Ordering Provider: EDU GOMEZ Report Released Date/Time: Aug 24, 2024 07:24 PM Reporting Lab: [place] [address] [facility] [address] Performing Lab: [facility] [address] [facility] [address] [facility] URINE DRUG SCREEN (STL) CANNABINOI DS [PRESENCE] IN URINE BY SCREEN METHOD POSITIV Eng/mL 08/25 Specimen Type: URINE Comment: The cut-off value for Fentanyl was laboratory developed and its performance characteris tics confirmed by the [facility] laboratory thru method comparison with reference laboratory and medication chart review. The laboratory is regulated under CLIA as qualified to perform high-comple xity testing. Fentanyl is used for clinical purposes in conjunction with other laboratory tests. Ordering Provider: EDU GOMEZ Report Released Date/Time: Aug 24, 2024 07:24 PM Reporting Lab: [facility] [address] [facility] [address] Performing Lab: [facility] [address] [facility] [address] [facility] URINE DRUG SCREEN (STL) METHADONE [PRESENCE] IN URINE Negativ eng/mL 08/25 Specimen Type: URINE Comment: The cut-off value for Fentanyl was laboratory developed and its performance characteris tics confirmed by the [facility] laboratory thru method comparison with reference laboratory and medication chart review. The laboratory is regulated under CLIA as qualified to perform high-comple xity testing. Fentanyl is used for clinical purposes in conjunction with other laboratory tests. Ordering Provider: EDU GOMEZ Report Released Date/Time: Aug 24, 2024 07:24 PM Reporting Lab: [facility] [address] [facility] [address] Performing Lab: [place] [address] [facility] [phone] [facility] URINE DRUG SCREEN (STL) OPIATES [PRESENCE] IN URINE BY SCREEN METHOD Negativ eng/mL 08/25 Specimen Type: URINE Comment: The cut-off value for Fentanyl was laboratory developed and its performance characteris tics confirmed by the [facility] laboratory thru method comparison with reference laboratory and medication chart review. The laboratory is regulated under CLIA as qualified to perform high-comple xity testing. Fentanyl is used for clinical purposes in conjunction with other laboratory tests. Ordering Provider: EDU GOMEZ Report Released Date/Time: Aug 24, 2024 07:24 PM Reporting Lab: [facility] [address] [facility] [address] Performing Lab: [facility] [address] [place] [phone] [facility] URINE DRUG SCREEN (STL) CREATININE [MASS/VOLU ME] IN URINE 39.0 mg/dL 47 - 110 08/25 L Specimen Type: URINE Comment: The cut-off value for Fentanyl was laboratory developed and its performance characteris tics confirmed by the [facility] laboratory thru method comparison with reference laboratory and medication chart review. The laboratory is regulated under CLIA as qualified to perform high-comple xity testing. Fentanyl is used for clinical purposes in conjunction with other laboratory tests. Ordering Provider: EDU GOMEZ Report Released Date/Time: Aug 24, 2024 07:24 PM Reporting Lab: [address] [address] Performing Lab: [address] [phone] [facility] URINE DRUG SCREEN (STL) OXYCODONE CUTOFF [MASS/VOLU ME] IN URINE FOR SCREEN METHOD Negativ eng/mL 08/25 Specimen Type: URINE Comment: The cut-off value for Fentanyl was laboratory developed and its performance characteris tics confirmed by the [facility] laboratory thru method comparison with reference laboratory and medication chart review. The laboratory is regulated under CLIA as qualified to perform high-comple xity testing. Fentanyl is used for clinical purposes in conjunction with other laboratory tests. Ordering Provider: EDU GOMEZ Report Released Date/Time: Aug 24, 2024 07:24 PM Reporting Lab: [address] [phone] Performing Lab: [address] [address] [facility] URINE DRUG SCREEN (STL) BUPRENORPH INE [PRESENCE] IN URINE Negativ eng/mL 08/25 Specimen Type: URINE Comment: The cut-off value for Fentanyl was laboratory developed and its performance characteris tics confirmed by the [facility] laboratory thru method comparison with reference laboratory and medication chart review. The laboratory is regulated under CLIA as qualified to perform high-comple xity testing. Fentanyl is used for clinical purposes in conjunction with other laboratory tests. Ordering Provider: EDU GOMEZ Report Released Date/Time: Aug 24, 2024 07:24 PM Reporting Lab: [facility] [address] [facility] [address] Performing Lab: [address] [phone] [facility] URINE DRUG SCREEN (STL) FENTANYL [PRESENCE] IN URINE Negativ eng/mL 08/25 Specimen Type: URINE Comment: The cut-off value for Fentanyl was laboratory developed and its performance characteris tics confirmed by the [facility] laboratory thru method comparison with reference laboratory and medication chart review. The laboratory is regulated under CLIA as qualified to perform high-comple xity testing. Fentanyl is used for clinical purposes in conjunction with other laboratory tests. Ordering Provider: EDU GOMEZ Report Released Date/Time: Aug 24, 2024 07:24 PM Reporting Lab: [facility] [address] [place] [address] Performing Lab: [facility] [address] [place] [phone] [facility] URINALYSI S W/ CX REFLEX (STL-PB) COLOR OF URINE Yellow 08/20 Specimen Type: URINE No comment entered. Ordering Provider: EDU GOMEZ Report Released Date/Time: Aug 19, 2024 11:04 AM Reporting Lab: [facility] [address] Performing Lab: [facility] [id number] [place] [address] DIVISION URINALYSI S W/ CX REFLEX (STL-PB) BILIRUBIN. TOTAL [PRESENCE] IN URINE BY TEST STRIP Negativ emg/dL 08/20 Specimen Type: URINE No comment entered. Ordering Provider: EDU GOMEZ Report Released Date/Time: Aug 19, 2024 11:04 AM Reporting Lab: [facility] [place] [address] Performing Lab: [facility] DIVISION URINALYSI S W/ CX REFLEX (STL-PB) PH OF URINE BY TEST STRIP 6.0 5.0 - 8.0 08/20 Specimen Type: URINE No comment entered. Ordering Provider: EDU GOMEZ Report Released Date/Time: Aug 19, 2024 11:04 AM Reporting Lab: [facility] [place] [address] Performing Lab: [facility] DIVISION URINALYSI S W/ CX REFLEX (STL-PB) LEUKOCYTES [#/AREA] IN URINE SEDIMENT BY MICROSCOPY HIGH POWER FIELD 3 /[HPF] 0 - 5 08/20 Specimen Type: URINE No comment entered. Ordering Provider: EDU GOMEZ Report Released Date/Time: Aug 19, 2024 11:04 AM Reporting Lab: [facility] [place] [address] Performing Lab: [facility] DIVISION URINALYSI S W/ CX REFLEX (STL-PB) ERYTHROCYT ES [#/VOLUME] IN URINE SEDIMENT BY MICROSCOPY HIGH POWER FIELD 3 /[HPF] 0 - 5 08/20 Specimen Type: URINE No comment entered. Ordering Provider: EDU GOMEZ Report Released Date/Time: Aug 19, 2024 11:04 AM Reporting Lab: [facility] [place] [address] Performing Lab: [facility] URINALYSI S W/ CX REFLEX (STL-PB) APPEARANCE OF URINE Clear 08/20 Specimen Type: URINE No comment entered. Ordering Provider: EDU GOMEZ Report Released Date/Time: Aug 19, 2024 11:04 AM Reporting Lab: [facility] [place] [address] Performing Lab: [facility] URINALYSI S W/ CX REFLEX (STL-PB) NITRITE [PRESENCE] IN URINE BY TEST STRIP Negativ emg/dL 08/20 Specimen Type: URINE No comment entered. Ordering Provider: EDU GOMEZ Report Released Date/Time: Aug 19, 2024 11:04 AM Reporting Lab: [facility] [place] [address] Performing Lab: [facility] URINALYSI S W/ CX REFLEX (STL-PB) EPITHELIAL CELLS [#/AREA] IN URINE SEDIMENT BY MICROSCOPY LOW POWER FIELD 9 /[HPF] 0 - 5 08/20 Specimen Type: URINE No comment entered. Ordering Provider: EDU GOMEZ Report Released Date/Time: Aug 19, 2024 11:04 AM Reporting Lab: [facility] [place] [address] Performing Lab: [facility] URINALYSI S W/ CX REFLEX (STL-PB) MUCUS [PRESENCE] IN URINE SEDIMENT BY LIGHT MICROSCOPY FEW/[LP F] 08/20 Specimen Type: URINE No comment entered. Ordering Provider: EDU GOMEZ Report Released Date/Time: Aug 19, 2024 11:04 AM Reporting Lab: [facility] [place] [address] Performing Lab: [facility] DIVISION URINALYSI S W/ CX REFLEX (STL-PB) GLUCOSE [MASS/VOLU ME] IN URINE BY TEST STRIP Normalm g/dL 08/20 Specimen Type: URINE No comment entered. Ordering Provider: EDU GOMEZ Report Released Date/Time: Aug 19, 2024 11:04 AM Reporting Lab: [facility] [place] [address] Performing Lab: [facility] DIVISION URINALYSI S W/ CX REFLEX (STL-PB) PROTEIN [MASS/VOLU ME] IN URINE BY TEST STRIP 20 mg/dL 08/20 H Specimen Type: URINE No comment entered. Ordering Provider: EDU GOMEZ Report Released Date/Time: Aug 19, 2024 11:04 AM Reporting Lab: [facility] [place] [address] Performing Lab: [facility] DIVISION URINALYSI S W/ CX REFLEX (STL-PB) URN.UROBIL INOGEN Normalm g/dL 08/20 Specimen Type: URINE No comment entered. Ordering Provider: EDU GOMEZ Report Released Date/Time: Aug 19, 2024 11:04 AM Reporting Lab: [facility] [place] [address] Performing Lab: [facility] DIVISION URINALYSI S W/ CX REFLEX (STL-PB) HEMOGLOBIN [MASS/VOLU ME] IN URINE BY TEST STRIP Negativ emg/dL 08/20 Specimen Type: URINE No comment entered. Ordering Provider: EDU GOMEZ Report Released Date/Time: Aug 19, 2024 11:04 AM Reporting Lab: [facility] [place] [address] Performing Lab: [facility] DIVISION URINALYSI S W/ CX REFLEX (STL-PB) KETONES [MASS/VOLU ME] IN URINE BY TEST STRIP Negativ emg/dL 08/20 Specimen Type: URINE No comment entered. Ordering Provider: EDU GOMEZ Report Released Date/Time: Aug 19, 2024 11:04 AM Reporting Lab: [facility] [place] [address] Performing Lab: [facility] DIVISION URINALYSI S W/ CX REFLEX (STL-PB) URN.LEUK.E ST. 75 mg/dL 08/20 H Specimen Type: URINE No comment entered. Ordering Provider: EDU GOMEZ Report Released Date/Time: Aug 19, 2024 11:04 AM Reporting Lab: [facility] [place] [address] Performing Lab: [facility] DIVISION URINALYSI S W/ CX REFLEX (STL-PB) SPECIFIC GRAVITY OF URINE 1.028 08/20 Specimen Type: URINE No comment entered. Ordering Provider: EDU GOMEZ Report Released Date/Time: Aug 19, 2024 11:04 AM Reporting Lab: [facility] [place] [address] Performing Lab: [facility] DIVISION URINALYSI S (STL-PB) COLOR OF URINE Yellow 08/19 Specimen Type: URINE No comment entered. Ordering Provider: EDU GOMEZ Report Released Date/Time: Aug 16, 2024 03:45 PM Reporting Lab: [facility] [place] [address] Performing Lab: [facility] DIVISION URINALYSI S (STL-PB) BILIRUBIN. TOTAL [PRESENCE] IN URINE BY TEST STRIP Negativ emg/dL 08/19 Specimen Type: URINE No comment entered. Ordering Provider: EDU GOMEZ Report Released Date/Time: Aug 16, 2024 03:45 PM Reporting Lab: [facility] [place] [address] Performing Lab: [facility] DIVISION URINALYSI S (STL-PB) PH OF URINE BY TEST STRIP 6.0 5.0 - 8.0 08/19 Specimen Type: URINE No comment entered. Ordering Provider: EDU GOMEZ Report Released Date/Time: Aug 16, 2024 03:45 PM Reporting Lab: [facility] [place] [address] Performing Lab: [facility] DIVISION URINALYSI S (STL-PB) LEUKOCYTES [#/AREA] IN URINE SEDIMENT BY MICROSCOPY HIGH POWER FIELD 14 /[HPF] 0 - 5 08/19 H Specimen Type: URINE No comment entered. Ordering Provider: EDU GMOEZ Report Released Date/Time: Aug 16, 2024 03:45 PM Reporting Lab: [facility] [place] [address] Performing Lab: [facility] DIVISION URINALYSI S (STL-PB) ERYTHROCYT ES [#/VOLUME] IN URINE SEDIMENT BY MICROSCOPY HIGH POWER FIELD 5 /[HPF] 0 - 5 08/19 Specimen Type: URINE No comment entered. Ordering Provider: EDU GOMEZ Report Released Date/Time: Aug 16, 2024 03:45 PM Reporting Lab: [facility] [place] [address] Performing Lab: [facility] DIVISION URINALYSI S (STL-PB) APPEARANCE OF URINE Turbid 08/19 Specimen Type: URINE No comment entered. Ordering Provider: EDU GOMEZ Report Released Date/Time: Aug 16, 2024 03:45 PM Reporting Lab: [facility] [place] [address] Performing Lab: [facility] DIVISION URINALYSI S (STL-PB) NITRITE [PRESENCE] IN URINE BY TEST STRIP Negativ emg/dL 08/19 Specimen Type: URINE No comment entered. Ordering Provider: EDU GOMEZ Report Released Date/Time: Aug 16, 2024 03:45 PM Reporting Lab: [facility] [place] [address] Performing Lab: [facility] DIVISION URINALYSI S (STL-PB) EPITHELIAL CELLS [#/AREA] IN URINE SEDIMENT BY MICROSCOPY LOW POWER FIELD 9 /[HPF] 0 - 5 08/19 Specimen Type: URINE No comment entered. Ordering Provider: EDU GOMEZ Report Released Date/Time: Aug 16, 2024 03:45 PM Reporting Lab: [facility] [place] [address] Performing Lab: [facility] DIVISION URINALYSI S (STL-PB) MUCUS [PRESENCE] IN URINE SEDIMENT BY LIGHT MICROSCOPY MOD/[LP F] 08/19 Specimen Type: URINE No comment entered. Ordering Provider: EDU GOMEZ Report Released Date/Time: Aug 16, 2024 03:45 PM Reporting Lab: [facility] [place] [address] Performing Lab: [facility] DIVISION URINALYSI S (STL-PB) GLUCOSE [MASS/VOLU ME] IN URINE BY TEST STRIP Normalm g/dL 08/19 Specimen Type: URINE No comment entered. Ordering Provider: EDU GOMEZ Report Released Date/Time: Aug 16, 2024 03:45 PM Reporting Lab: [facility] [place] [address] Performing Lab: [facility] DIVISION URINALYSI S (STL-PB) PROTEIN [MASS/VOLU ME] IN URINE BY TEST STRIP 30 mg/dL 08/19 H Specimen Type: URINE No comment entered. Ordering Provider: EDU GOMEZ Report Released Date/Time: Aug 16, 2024 03:45 PM Reporting Lab: [facility] [place] [address] Performing Lab: [facility] DIVISION URINALYSI S (STL-PB) URN.UROBIL INOGEN 2 mg/dL 08/19 H Specimen Type: URINE No comment entered. Ordering Provider: EDU GOMEZ Report Released Date/Time: Aug 16, 2024 03:45 PM Reporting Lab: [facility] [place] [address] Performing Lab: [facility] DIVISION URINALYSI S (STL-PB) HEMOGLOBIN [MASS/VOLU ME] IN URINE BY TEST STRIP Negativ emg/dL 08/19 Specimen Type: URINE No comment entered. Ordering Provider: EDU GOMEZ Report Released Date/Time: Aug 16, 2024 03:45 PM Reporting Lab: [facility] [place] [address] Performing Lab: [facility] DIVISION URINALYSI S (STL-PB) KETONES [MASS/VOLU ME] IN URINE BY TEST STRIP Tracemg /dL 08/19 Specimen Type: URINE No comment entered. Ordering Provider: EDU GOMEZ Report Released Date/Time: Aug 16, 2024 03:45 PM Reporting Lab: [facility] [place] [address] Performing Lab: [facility] DIVISION URINALYSI S (STL-PB) URN.LEUK.E ST. 500 mg/dL 08/19 H Specimen Type: URINE No comment entered. Ordering Provider: EDU GOMEZ Report Released Date/Time: Aug 16, 2024 03:45 PM Reporting Lab: [facility] [place] [address] Performing Lab: [facility] DIVISION URINALYSI S (STL-PB) SPECIFIC GRAVITY OF URINE 1.035 08/19 H Specimen Type: URINE No comment entered. Ordering Provider: EDU GOMEZ Report Released Date/Time: Aug 16, 2024 03:45 PM Reporting Lab: [facility] [place] [address] Performing Lab: [facility] TEST URINE (MA-STL) CHORIOGONA DOTROPIN ( TEST) [PRESENCE] IN URINE NEG 08/19 Specimen Type: URINE No comment entered. Ordering Provider: EDU GOMEZ Report Released Date/Time: Aug 16, 2024 03:45 PM Reporting Lab: [facility] [place] [address] Performing Lab: [facility] URINE DRUG SCREEN (STL) ETHANOL [MASS/VOLU ME] IN URINE Negativ emg/dL 0 - 20 08/19 Specimen Type: URINE Comment: The cut-off value for Fentanyl was laboratory developed and its performance characteris tics confirmed by the [facility] laboratory thru method comparison with reference laboratory and medication chart review. The laboratory is regulated under CLIA as qualified to perform high-comple xity testing. Fentanyl is used for clinical purposes in conjunction with other laboratory tests. Ordering Provider: EDU GOMEZ Report Released Date/Time: Aug 16, 2024 03:45 PM Reporting Lab: [facility] [place] [address] Performing Lab: [facility] URINE DRUG SCREEN (STL) AMPHETAMIN E [PRESENCE] IN URINE BY SCREEN METHOD Negativ eng/mL 08/19 Specimen Type: URINE Comment: The cut-off value for Fentanyl was laboratory developed and its performance characteris tics confirmed by the [facility] laboratory thru method comparison with reference laboratory and medication chart review. The laboratory is regulated under CLIA as qualified to perform high-comple xity testing. Fentanyl is used for clinical purposes in conjunction with other laboratory tests. Ordering Provider: EDU GOMEZ Report Released Date/Time: Aug 16, 2024 03:45 PM Reporting Lab: [facility] [id number] Performing Lab: [facility] [place] [id number] [place] [address] URINE DRUG SCREEN (STL) BENZOYLECG ONINE [PRESENCE] IN URINE Negativ eng/mL 08/19 Specimen Type: URINE Comment: The cut-off value for Fentanyl was laboratory developed and its performance characteris tics confirmed by the [facility] laboratory thru method comparison with reference laboratory and medication chart review. The laboratory is regulated under CLIA as qualified to perform high-comple xity testing. Fentanyl is used for clinical purposes in conjunction with other laboratory tests. Ordering Provider: DEU GOMEZ Report Released Date/Time: Aug 16, 2024 03:45 PM Reporting Lab: [facility] [place] [address] Performing Lab: [facility] URINE DRUG SCREEN (STL) BENZODIAZE PINES [PRESENCE] IN URINE BY SCREEN METHOD Negativ eng/mL 08/19 Specimen Type: URINE Comment: The cut-off value for Fentanyl was laboratory developed and its performance characteris tics confirmed by the [facility] laboratory thru method comparison with reference laboratory and medication chart review. The laboratory is regulated under CLIA as qualified to perform high-comple xity testing. Fentanyl is used for clinical purposes in conjunction with other laboratory tests. Ordering Provider: EDU GOMEZ Report Released Date/Time: Aug 16, 2024 03:45 PM Reporting Lab: [facility] [address] Performing Lab: [facility] [place] [id number] [place] [address] URINE DRUG SCREEN (STL) CANNABINOI DS [PRESENCE] IN URINE BY SCREEN METHOD POSITIV Eng/mL 08/19 Specimen Type: URINE Comment: The cut-off value for Fentanyl was laboratory developed and its performance characteris tics confirmed by the [facility] laboratory thru method comparison with reference laboratory and medication chart review. The laboratory is regulated under CLIA as qualified to perform high-comple xity testing. Fentanyl is used for clinical purposes in conjunction with other laboratory tests. Ordering Provider: EDU GOMEZ Report Released Date/Time: Aug 16, 2024 03:45 PM Reporting Lab: [facility] [place] [address] Performing Lab: [facility] [address] URINE DRUG SCREEN (STL) METHADONE [PRESENCE] IN URINE Negativ eng/mL 08/19 Specimen Type: URINE Comment: The cut-off value for Fentanyl was laboratory developed and its performance characteris tics confirmed by the [facility] laboratory thru method comparison with reference laboratory and medication chart review. The laboratory is regulated under CLIA as qualified to perform high-comple xity testing. Fentanyl is used for clinical purposes in conjunction with other laboratory tests. Ordering Provider: EDU GOMEZ Report Released Date/Time: Aug 16, 2024 03:45 PM Reporting Lab: [facility] [place] [address] Performing Lab: [facility] URINE DRUG SCREEN (STL) OPIATES [PRESENCE] IN URINE BY SCREEN METHOD POSITIV Eng/mL 08/19 Specimen Type: URINE Comment: The cut-off value for Fentanyl was laboratory developed and its performance characteris tics confirmed by the [facility] laboratory thru method comparison with reference laboratory and medication chart review. The laboratory is regulated under CLIA as qualified to perform high-comple xity testing. Fentanyl is used for clinical purposes in conjunction with other laboratory tests. Ordering Provider: EDU GOMEZ Report Released Date/Time: Aug 16, 2024 03:45 PM Reporting Lab: [facility] [place] [address] Performing Lab: [facility] URINE DRUG SCREEN (STL) CREATININE [MASS/VOLU ME] IN URINE 266.1 mg/dL 47.0 - 110.0 08/19 H Specimen Type: URINE Comment: The cut-off value for Fentanyl was laboratory developed and its performance characteris tics confirmed by the [facility] laboratory thru method comparison with reference laboratory and medication chart review. The laboratory is regulated under CLIA as qualified to perform high-comple xity testing. Fentanyl is used for clinical purposes in conjunction with other laboratory tests. Ordering Provider: EDU GOMEZ Report Released Date/Time: Aug 16, 2024 03:45 PM Reporting Lab: [facility] [place] [address] Performing Lab: [facility] URINE DRUG SCREEN (STL) OXYCODONE CUTOFF [MASS/VOLU ME] IN URINE FOR SCREEN METHOD Negativ eng/mL 08/19 Specimen Type: URINE Comment: The cut-off value for Fentanyl was laboratory developed and its performance characteris tics confirmed by the [facility] laboratory thru method comparison with reference laboratory and medication chart review. The laboratory is regulated under CLIA as qualified to perform high-comple xity testing. Fentanyl is used for clinical purposes in conjunction with other laboratory tests. Ordering Provider: EDU GOMEZ Report Released Date/Time: Aug 16, 2024 03:45 PM Reporting Lab: [facility] [place] [address] Performing Lab: [facility] URINE DRUG SCREEN (STL) BUPRENORPH INE [PRESENCE] IN URINE Negativ eng/mL 08/19 Specimen Type: URINE Comment: The cut-off value for Fentanyl was laboratory developed and its performance characteris tics confirmed by the [facility] laboratory thru method comparison with reference laboratory and medication chart review. The laboratory is regulated under CLIA as qualified to perform high-comple xity testing. Fentanyl is used for clinical purposes in conjunction with other laboratory tests. Ordering Provider: EDU GOMEZ Report Released Date/Time: Aug 16, 2024 03:45 PM Reporting Lab: [facility] [place] [address] Performing Lab: [facility] URINE DRUG SCREEN (STL) FENTANYL [PRESENCE] IN URINE Negativ eng/mL 08/19 Specimen Type: URINE Comment: The cut-off value for Fentanyl was laboratory developed and its performance characteris tics confirmed by the [facility] laboratory thru method comparison with reference laboratory and medication chart review. The laboratory is regulated under CLIA as qualified to perform high-comple xity testing. Fentanyl is used for clinical purposes in conjunction with other laboratory tests. Ordering Provider: EDU GOMEZ Report Released Date/Time: Aug 16, 2024 03:45 PM Reporting Lab: [facility] [place] [address] Performing Lab: [facility] CBC LEUKOCYTES [#/VOLUME] IN BLOOD BY AUTOMATED COUNT 12.7 10*3/uL 3.6 - 11.2 08/19 H Specimen Type: BLOOD No comment entered. Ordering Provider: EDU GOMEZ Report Released Date/Time: Aug 16, 2024 03:45 PM Reporting Lab: [facility] [place] [address] Performing Lab: [facility] CBC ERYTHROCYT ES [#/VOLUME] IN BLOOD BY AUTOMATED COUNT 4.19 10*6/uL 3.60 - 5.00 08/19 Specimen Type: BLOOD No comment entered. Ordering Provider: EDU GOMEZ Report Released Date/Time: Aug 16, 2024 03:45 PM Reporting Lab: [facility] [place] [address] Performing Lab: [facility] CBC HEMOGLOBIN [MASS/VOLU ME] IN BLOOD 12.7 g/dL 11.0 - 14.9 08/19 Specimen Type: BLOOD No comment entered. Ordering Provider: EDU GOMEZ Report Released Date/Time: Aug 16, 2024 03:45 PM Reporting Lab: [facility] [place] [address] Performing Lab: [facility] DIVISION CBC HEMATOCRIT [VOLUME FRACTION] OF BLOOD 37.7 32.6 - 43.4 08/19 Specimen Type: BLOOD No comment entered. Ordering Provider: EDU GOMEZ Report Released Date/Time: Aug 16, 2024 03:45 PM Reporting Lab: [facility] [place] [address] Performing Lab: [facility] CBC MCV [ENTITIC VOLUME] BY AUTOMATED COUNT 90.0 fL 80.0 - 100.0 08/19 Specimen Type: BLOOD No comment entered. Ordering Provider: EDU GOMEZ Report Released Date/Time: Aug 16, 2024 03:45 PM Reporting Lab: [facility] [place] [address] Performing Lab: [facility] CBC MCH [ENTITIC MASS] BY AUTOMATED COUNT 30.3 pg 27.0 - 34.0 08/19 Specimen Type: BLOOD No comment entered. Ordering Provider: EDU GOMEZ Report Released Date/Time: Aug 16, 2024 03:45 PM Reporting Lab: [facility] [place] [address] Performing Lab: [facility] DIVISION CBC MCHC [MASS/VOLU ME] BY AUTOMATED COUNT 33.7 g/dL 33.0 - 36.0 08/19 Specimen Type: BLOOD No comment entered. Ordering Provider: EDU GOMEZ Report Released Date/Time: Aug 16, 2024 03:45 PM Reporting Lab: [facility] [place] [address] Performing Lab: [facility] DIVISION CBC PLATELETS [#/VOLUME] IN BLOOD BY AUTOMATED COUNT 418 10*3/uL 150 - 400 08/19 H Specimen Type: BLOOD No comment entered. Ordering Provider: EDU GOMEZ Report Released Date/Time: Aug 16, 2024 03:45 PM Reporting Lab: [facility] [place] [address] Performing Lab: [facility] DIVISION CBC PLATELET MEAN VOLUME [ENTITIC VOLUME] IN BLOOD BY AUTOMATED COUNT 10.2 fL 7.5 - 11.2 08/19 Specimen Type: BLOOD No comment entered. Ordering Provider: EDU GOMEZ Report Released Date/Time: Aug 16, 2024 03:45 PM Reporting Lab: [facility] [place] [address] Performing Lab: [facility] DIVISION CBC ERYTHROCYT E DISTRIBUTI ON WIDTH [RATIO] BY AUTOMATED COUNT 12.0 11.8 - 15.1 08/19 Specimen Type: BLOOD No comment entered. Ordering Provider: EDU GOMEZ Report Released Date/Time: Aug 16, 2024 03:45 PM Reporting Lab: [facility] [place] [address] Performing Lab: [facility] DIVISION CBC LYMPHOCYTE S/100 LEUKOCYTES IN BLOOD BY AUTOMATED COUNT 21 08/19 Specimen Type: BLOOD No comment entered. Ordering Provider: EDU GOMEZ Report Released Date/Time: Aug 16, 2024 03:45 PM Reporting Lab: [facility] [place] [address] Performing Lab: [facility] DIVISION CBC MONOCYTES/ 100 LEUKOCYTES IN BLOOD BY AUTOMATED COUNT 7 08/19 Specimen Type: BLOOD No comment entered. Ordering Provider: EDU GOMEZ Report Released Date/Time: Aug 16, 2024 03:45 PM Reporting Lab: [facility] [place] [address] Performing Lab: [facility] DIVISION CBC NEUTROPHIL S/100 LEUKOCYTES IN BLOOD BY AUTOMATED COUNT 63 08/19 Specimen Type: BLOOD No comment entered. Ordering Provider: EDU GOMEZ Report Released Date/Time: Aug 16, 2024 03:45 PM Reporting Lab: [facility] [place] [address] Performing Lab: [facility] DIVISION CBC EOSINOPHIL S/100 LEUKOCYTES IN BLOOD BY AUTOMATED COUNT 7 08/19 Specimen Type: BLOOD No comment entered. Ordering Provider: EDU GOMEZ Report Released Date/Time: Aug 16, 2024 03:45 PM Reporting Lab: [facility] [place] [address] Performing Lab: [facility] DIVISION CBC BASOPHILS/ 100 LEUKOCYTES IN BLOOD BY AUTOMATED COUNT 1 08/19 Specimen Type: BLOOD No comment entered. Ordering Provider: EDU GOMEZ Report Released Date/Time: Aug 16, 2024 03:45 PM Reporting Lab: [facility] [place] [address] Performing Lab: [facility] DIVISION CBC LYMPHOCYTE S [#/VOLUME] IN BLOOD BY AUTOMATED COUNT 2.69 10*3/uL 0.77 - 4.50 08/19 Specimen Type: BLOOD No comment entered. Ordering Provider: EDU GOMEZ Report Released Date/Time: Aug 16, 2024 03:45 PM Reporting Lab: [facility] [place] [address] Performing Lab: [facility] DIVISION CBC MONOCYTES [#/VOLUME] IN BLOOD BY AUTOMATED COUNT 0.90 10*3/uL 0.19 - 0.80 08/19 H Specimen Type: BLOOD No comment entered. Ordering Provider: EDU GOMEZ Report Released Date/Time: Aug 16, 2024 03:45 PM Reporting Lab: [facility] [place] [address] Performing Lab: [facility] DIVISION CBC NEUTROPHIL S [#/VOLUME] IN BLOOD BY AUTOMATED COUNT 8.03 10*3/uL 2.10 - 8.00 08/19 H Specimen Type: BLOOD No comment entered. Ordering Provider: EDU GOMEZ Report Released Date/Time: Aug 16, 2024 03:45 PM Reporting Lab: [facility] [place] [address] Performing Lab: [facility] DIVISION CBC EOSINOPHIL S [#/VOLUME] IN BLOOD BY AUTOMATED COUNT 0.88 10*3/uL 0.00 - 0.60 08/19 H Specimen Type: BLOOD No comment entered. Ordering Provider: EUD GOMEZ Report Released Date/Time: Aug 16, 2024 03:45 PM Reporting Lab: [facility] [place] [address] Performing Lab: [facility] DIVISION CBC BASOPHILS [#/VOLUME] IN BLOOD BY AUTOMATED COUNT 0.09 10*3/uL 0.00 - 0.20 08/19 Specimen Type: BLOOD No comment entered. Ordering Provider: EDU GOMEZ Report Released Date/Time: Aug 16, 2024 03:45 PM Reporting Lab: [facility] [place] [address] Performing Lab: [facility] DIVISION COMPREHEN SIVE METABOLIC PANEL CREATININE [MASS/VOLU ME] IN SERUM OR PLASMA 0.75 mg/dL 0.60 - 1.10 08/19 Specimen Type: PLASMA Comment: No hemolysis noted. Ordering Provider: EDU GOMEZ Report Released Date/Time: Aug 16, 2024 03:45 PM Reporting Lab: [facility] [place] [address] Performing Lab: [facility] [id number] [place] [address] DIVISION COMPREHEN SIVE METABOLIC PANEL UREA NITROGEN [MASS/VOLU ME] IN SERUM OR PLASMA 12.0 mg/dL 9.0 - 25.0 08/19 Specimen Type: PLASMA Comment: No hemolysis noted. Ordering Provider: EDU GOMEZ Report Released Date/Time: Aug 16, 2024 03:45 PM Reporting Lab: [facility] [place] [address] Performing Lab: [facility] DIVISION COMPREHEN SIVE METABOLIC PANEL GLUCOSE [MASS/VOLU ME] IN SERUM OR PLASMA 99 mg/dL 72 - 99 08/19 Specimen Type: PLASMA Comment: No hemolysis noted. Ordering Provider: EDU GOMEZ Report Released Date/Time: Aug 16, 2024 03:45 PM Reporting Lab: [facility] [place] [address] Performing Lab: [facility] DIVISION COMPREHEN SIVE METABOLIC PANEL SODIUM [MOLES/VOL UME] IN SERUM OR PLASMA 139 meq/L 136 - 145 08/19 Specimen Type: PLASMA Comment: No hemolysis noted. Ordering Provider: EDU GOMEZ Report Released Date/Time: Aug 16, 2024 03:45 PM Reporting Lab: [facility] [place] [address] Performing Lab: [facility] DIVISION COMPREHEN SIVE METABOLIC PANEL POTASSIUM [MOLES/VOL UME] IN SERUM OR PLASMA 4.2 meq/L 3.5 - 5.0 08/19 Specimen Type: PLASMA Comment: No hemolysis noted. Ordering Provider: EDU GOMEZ Report Released Date/Time: Aug 16, 2024 03:45 PM Reporting Lab: [facility] [place] [address] Performing Lab: [facility] DIVISION COMPREHEN SIVE METABOLIC PANEL CHLORIDE [MOLES/VOL UME] IN SERUM OR PLASMA 108 meq/L 98 - 107 08/19 H Specimen Type: PLASMA Comment: No hemolysis noted. Ordering Provider: EDU GOMEZ Report Released Date/Time: Aug 16, 2024 03:45 PM Reporting Lab: [facility] [place] [address] Performing Lab: [facility] DIVISION COMPREHEN SIVE METABOLIC PANEL CARBON DIOXIDE, TOTAL [MOLES/VOL UME] IN SERUM OR PLASMA 23 meq/L 22 - 31 08/19 Specimen Type: PLASMA Comment: No hemolysis noted. Ordering Provider: EDU GOMEZ Report Released Date/Time: Aug 16, 2024 03:45 PM Reporting Lab: [facility] [place] [address] Performing Lab: [facility] DIVISION COMPREHEN SIVE METABOLIC PANEL CALCIUM [MASS/VOLU ME] IN SERUM OR PLASMA 8.8 mg/dL 8.4 - 10.4 08/19 Specimen Type: PLASMA Comment: No hemolysis noted. Ordering Provider: EDU GOMEZ Report Released Date/Time: Aug 16, 2024 03:45 PM Reporting Lab: [facility] [place] [address] Performing Lab: [facility] DIVISION COMPREHEN SIVE METABOLIC PANEL PROTEIN [MASS/VOLU ME] IN SERUM OR PLASMA 6.5 g/dL 6.0 - 8.6 08/19 Specimen Type: PLASMA Comment: No hemolysis noted. Ordering Provider: EDU GOMEZ Report Released Date/Time: Aug 16, 2024 03:45 PM Reporting Lab: [facility] [place] [address] Performing Lab: [facility] DIVISION COMPREHEN SIVE METABOLIC PANEL ALBUMIN [MASS/VOLU ME] IN SERUM OR PLASMA 3.8 g/dL 3.4 - 5.0 08/19 Specimen Type: PLASMA Comment: No hemolysis noted. Ordering Provider: EDU GOMEZ Report Released Date/Time: Aug 16, 2024 03:45 PM Reporting Lab: [facility] [place] [address] Performing Lab: [facility] DIVISION COMPREHEN SIVE METABOLIC PANEL BILIRUBIN. TOTAL [MASS/VOLU ME] IN SERUM OR PLASMA 0.1 mg/dL 0.2 - 1.2 08/19 L Specimen Type: PLASMA Comment: No hemolysis noted. Ordering Provider: EDU GOMEZ Report Released Date/Time: Aug 16, 2024 03:45 PM Reporting Lab: [facility] [place] [address] Performing Lab: [facility] DIVISION COMPREHEN SIVE METABOLIC PANEL ALKALINE PHOSPHATAS E [ENZYMATIC ACTIVITY/V OLUME] IN SERUM OR PLASMA 69 U/L 40 - 150 08/19 Specimen Type: PLASMA Comment: No hemolysis noted. Ordering Provider: EDU GOMEZ Report Released Date/Time: Aug 16, 2024 03:45 PM Reporting Lab: [facility] [place] [address] Performing Lab: [facility] DIVISION COMPREHEN SIVE METABOLIC PANEL ASPARTATE AMINOTRANS FERASE [ENZYMATIC ACTIVITY/V OLUME] IN SERUM OR PLASMA 19 U/L 5 - 34 08/19 Specimen Type: PLASMA Comment: No hemolysis noted. Ordering Provider: EDU GOMEZ Report Released Date/Time: Aug 16, 2024 03:45 PM Reporting Lab: [facility] [place] [address] Performing Lab: [facility] COMPREHEN SIVE METABOLIC PANEL ALANINE AMINOTRANS FERASE [ENZYMATIC ACTIVITY/V OLUME] IN SERUM OR PLASMA 25 U/L 8 - 40 08/19 Specimen Type: PLASMA Comment: No hemolysis noted. Ordering Provider: EDU GOMEZ Report Released Date/Time: Aug 16, 2024 03:45 PM Reporting Lab: [facility] [place] [address] Performing Lab: [facility] DIVISION COMPREHEN SIVE METABOLIC PANEL GLOMERULAR FILTRATION RATE/1.73 SQ M.PREDICTE D [VOLUME RATE/AREA] IN SERUM, PLASMA OR BLOOD BY CREATININE -BASED FORMULA (CKD-EPI 2020) 104.44 60 08/19 Specimen Type: PLASMA Comment: No hemolysis noted. Ordering Provider: EDU GOMEZ Report Released Date/Time: Aug 16, 2024 03:45 PM Reporting Lab: [facility] [place] [address] Performing Lab: [facility] DIVISION PT/INR NEW (STL-MA) PROTHROMBI N TIME (PT) 9.4 s 9.4 - 12.5 08/19 Specimen Type: PLASMA No comment entered. Ordering Provider: EDU GOMEZ Report Released Date/Time: Aug 16, 2024 03:45 PM Reporting Lab: [facility] [address] Performing Lab: [facility] [id number] DIVISION PT/INR NEW ([facility]) INR IN PLATELET POOR PLASMA BY COAGULATIO N ASSAY 0.8 {INR} 08/19 Specimen Type: PLASMA No comment entered. Ordering Provider: EDU GOMEZ Report Released Date/Time: Aug 16, 2024 03:45 PM Reporting Lab: [facility] [address] Performing Lab: [facility] [id number] [place] [address] DIVISION ETHANOL SERUM/AGUSTIN SMA (STL) ETHANOL [MASS/VOLU ME] IN SERUM OR PLASMA <10.0mg /dL 0 - 10 08/19 Specimen Type: PLASMA Comment: No hemolysis noted. Ordering Provider: EDU GOMEZ Report Released Date/Time: Aug 16, 2024 03:45 PM Reporting Lab: [facility] [address] Performing Lab: [facility] Vital Signs Combined list of inpatient and outpatient Vital Signs from Department of Defense and Veterans Affairs, ranging from 12 months to all on record, depending upon the facility. Vital Sign Value Date Comments Source SYSTOLIC BLOOD PRESSURE 116 08/31/2024 07:28:04 [facility] DIASTOLIC BLOOD PRESSURE 77 08/31/2024 07:28:04 [facility] PULSE 101 08/31/2024 07:28:04 [facility] SYSTOLIC BLOOD PRESSURE 107 08/22/2024 06:56:18 [facility] DIV[facility] DIASTOLIC BLOOD PRESSURE 71 08/22/2024 06:56:18 [facility] PULSE OXIMETRY 96 08/22/2024 06:56:18 [facility] DIVISION PAIN 0 08/22/2024 06:56:18 [facility] DIVISION TEMPERATURE 98.1 08/22/2024 06:56:18 [facility] PULSE 94 08/22/2024 06:56:18 [facility] DIVISION RESPIRATION 20 08/22/2024 06:56:18 [facility] SYSTOLIC BLOOD PRESSURE 138 08/21/2024 06:52:54 [facility] DIASTOLIC BLOOD PRESSURE 83 08/21/2024 06:52:54 [facility] PULSE OXIMETRY 97 08/21/2024 06:52:54 [facility] DIVISION PAIN 0 08/21/2024 06:52:54 [facility] DIVISION TEMPERATURE 98.3 08/21/2024 06:52:54 [facility] PULSE 96 08/21/2024 06:52:54 [facility] DIVISION RESPIRATION 18 08/21/2024 06:52:54 [facility] SYSTOLIC BLOOD PRESSURE 117 08/20/2024 06:20:03 [facility] DIASTOLIC BLOOD PRESSURE 80 08/20/2024 06:20:03 [facility] PULSE OXIMETRY 97 08/20/2024 06:20:03 [facility] DIVISION TEMPERATURE 98 08/20/2024 06:20:03 [facility] PULSE 105 08/20/2024 06:20:03 [facility] DIVISION RESPIRATION 18 08/20/2024 06:20:03 [facility] SYSTOLIC BLOOD PRESSURE 122 08/19/2024 11:08:09 [facility] DIASTOLIC BLOOD PRESSURE 85 08/19/2024 11:08:09 [facility] PULSE OXIMETRY 98 08/19/2024 11:08:09 [facility] DIV[facility] PAIN 0 08/19/2024 11:08:09 [facility] DIVISION TEMPERATURE 97 08/19/2024 11:08:09 [facility] PULSE 86 08/19/2024 11:08:09 [facility] DIVISION RESPIRATION 18 08/19/2024 11:08:09 [facility] Encounters Combined list of: 1) Encounters from Department of [facility] facilities going backup to the last 18 months, not all [place] inpatient encounters are included; 2) Encounters from the Department of [facility] facilities going backup to 280 months. Location Location Details Encounter Type Encounter Number Reason For Visit Attending Provider ADM Date DC Date Status [place] OUTPATIENT [id number] hcg MAGGI MEDINA 05/23 Released w/o Limitations [place] [place] [facility] [place] TELE CONSULT [id number] breast pain MAGGI MEDINA 07/05 [place] [place] [facility] OUTPATIENT [id number] BREAST EXAM TALISHA BORRERO 07/05 Released w/o Limitations [place] [place] [facility] TELE CONSULT [id number] Mammogr am order request HOLLEY HEMPHILL 12/05 [place] [place] [facility] OUTPATIENT [id number] irregul ar heart beat ADRIAN SUN 12/13 Released w/o Limitations [place] [place] [facility] TELE CONSULT [id number] test results CORINNE, ADRIAN K 12/14 [place] [place] [facility]) OUTPATIENT [id number] lower abdomin al pain JUDIT PHAM Ian 04/03 Released w/o Limitations [place] [place] [facility] OUTPATIENT [id number] pregnan cy test JUDIT PHAM Ian 04/20 Released w/o Limitations [place] [place] [facility] OUTPATIENT [id number] c/o fatigue NADEEN RHOADES 06/07 Released w/o Limitations [place] [place] [facility] TELE CONSULT [id number] Lab Result FLORESDIANAAPOORVA P 06/15 [place] [place] [facility] [facility] [place] OUTPATIENT [id number] Female Exam JUDIT PHAM Ian 06/22 Released w/o Limitations [place] [place] [facility] [employer] [place] [facility] OUTPATIENT [id number] eye exam KAYLYNN CASE W 09/11 Released w/o Limitations [employer] [place]O ptometr y[place] [employer] [place] [facility]Fam janene Practice Non-GME FHI1) OUTPATIENT [id number] new pt-need s depress ion med filled JEROMY WANG P 09/14 Released w/o Limitations [employer] [place] ([facility]F amily Practic e Non-GME FHI1) [employer](IEP Hearing Conservat ion) OUTPATIENT [id number] HANNAH DIETZ 12/05 Released w/o Limitations [employer](I EP Hearing Conserv ation) [employer](P Primary Care) OUTPATIENT [id number] allergy brief SAMUEL LONGORIA N 12/05 Released w/o Limitations [employer](I EP Primary Care) [employer]([facility] C Post Immunizat ion) OUTPATIENT [id number] IET PPD FÉLIX DOUGLASS 12/06 Released w/o Limitations [employer]([facility] Post Immuniz ation) [employer](PES Optometry -Trainee) OUTPATIENT [id number] JOSE ARMANDO MANRIQUEZ 12/06 Released w/o Limitations [employer](P ES Optomet ry-Mitch nee) [employer]([facility] C Post Immunizat ion) OUTPATIENT [id number] IET IMMUNIZ ATIONS JOSE ARMANDO CLITFON 12/09 Released w/o Limitations [employer]([facility] Post Immuniz ation) [employer](IEP Primary Care) OUTPATIENT [id number] F/U MOT BHANU ACKERMAN 12/11 Released w/o Limitations [employer](I EP Primary Care) [employer](C Ambulator y) OUTPATIENT [id number] RTD HANNAH GRIFFIN 12/14 Released with Work/Duty Limitations [employer](T MC Ambulat ory) [employer]([facility] Ambulator y) OUTPATIENT [id number] rtd AMBROSIO DUVAL 12/26 Released w/o Limitations [employer](T MC Ambulat ory) [employer]([facility] Ambulator y) OUTPATIENT [id number] ZHANE MEZA 03/12 Released w/o Limitations [employer](T MC Ambulat ory) [employer]([facility] Ambulator y) OUTPATIENT [id number] ZHANE MEZA 03/13 Sick at Home/Quarter s [employer](T MC Ambulat ory) [employer]([facility] Immediate Care Clinic) OUTPATIENT [id number] 22 y/o SIT with N/V and dizzine ss times 3 days CLINT WAGNER 03/18 Released with Work/Duty Limitations [employer]([facility] Immedia te Care Clinic) [employer]([facility]) OUTPATIENT [id number] 22yo, Hyperve ntilati on-brou ght by EMS [place] W[place] 03/18 Sick at Home/Quarter s [employer]([facility] Immedia te Care Clinic) [employer]([facility] Ambulator y) OUTPATIENT [id number] AIT SELF HELP LACEY BOSE 04/08 Released with Work/Duty Limitations [employer] [facility](T MC Ambulat ory) [employer]([facility] Ambulator y) OUTPATIENT [id number] ZHAO BEE 04/21 Released with Work/Duty Limitations [employer] [facility](T MC Ambulat ory) [place] Provider Support) OUTPATIENT [id number] LBP BRII BARBOURISSA L 06/03 Released w/o Limitations [place] FP Provide r Support ) [place] Provider Support[place] OUTPATIENT [id number] pap GERI ABREU 06/05 [place]ased [place] Limitations [place] Provide r Support ) [place] Division Support [facility]) OUTPATIENT [id number] PT ST LOWER BACK PAIN LYNNETTE VALLES 06/10 [place]ased w/o Limitations [place] Divisio n Support [facility] Family Practic e) [place] FP Provider Support) OUTPATIENT [id number] Pt st difficu lty breathi ng ANU BARBOUR L 06/30 [place] Provide r [place] OUT[place]IENT [id number] SHAHZAD FLORES 06/30 [place] FP Provider Support) OUTPATIENT [id number] cold ANU BARBOUR L 07/04 [place]ased [place] FP Provide r Support ) [place] Provider Support) OUTPATIENT [id number] right ankle injury ANU BARBOUR L 07/15 Immediate Ref[place] FP Provide r Support [place]) OUT[place]IENT [id number] RICHARDSON LONGO Marina 07/15 [place] [id number] ANKLE; PER ALHAJI PALACIOS 07/17 [place] [id number] RIGHT FOOT INJURY PER ALHAJI PALACIOS 07/24 [place] [id number] R ALHAJI MARVIN 08/20 [place] FP Provider Support) OUTPATIENT [id number] sore throat, ear pain ANU BARBOUR L 08/22 [place]ased [place] FP Provide r Support [place] FP Provider Support) OUTPATIENT [id number] Brnchit is concern s HUNTER HDZ 08/25 [place] FP Provide r Support [place]) [place] [id number] R FOOT ALHAJI BENTLEY 09/01 [place] FP Provider Support) OUTPATIENT [id number] profile update ANU BARBOUR 09/30 [place]ased [place]itations [place] FP Provide r Support [place] FP Provider Support) OUTPATIENT [id number] pap ANU BARBOUR 10/01 [place]ased [place] FP Provide r Support [place]IENT [id number] ALEXX JETER 10/10 [place] Provider Support[place] OUTPATIENT [id number] Left finger injury/ f/u er ANU BARBOUR 10/10 [place] FP Provide r Support [place] Provider Support[place] OUTPATIENT [id number] right ankle injury ANU BARBOUR 10/22 [place]ased [place] Limitations [place] FP Provide r Support [place] OUT[place]IENT [id number] ALHAJI FARLEY 11/18 [place]itations [place] FP Provider Support) OUTPATIENT [id number] Back Pain ANU BARBOUR 11/18 [place] FP Provide r [place] [id number] PT STATES FOR BACK CLASS VJ VICENTE 11/20 [place]-Phys[place] Therapy[place] TELE CONSULT [id number] no show DENYS CHRISTIANSON 12/03 [place]) OUT[place]IENT [id number] RAVEN CUELLAR 01/04 [place] OUT[place]IENT [id number] DINAH HORTON 01/28 [place] OUT[place]IENT [id number] TD MENESES 02/02 [place] OUT[place] [id number] MONSTER CAZARES 02/06 [place] [id number] Vertigo JOSE ARMANDO IRAHETA 02/25 [place] [id number] MAYANK MCNEIL 03/13 [place] OUTPATIENT [id number] rfu after audio meniers JOSE ARMANDO IRAHETA 03/18 [place] [id number] hearing test per TD Goode 04/08 [place] [id number] RUDDY Lackey 04/15 [place] [id number] early gestati on Did not return on Mon to f/u Here today RUDDY JIMENEZ 04/21 [place] [id number] f/u for RUDDY Lackey 04/23 [place] [id number] G1 LMP:? QUANT LEVELS- QUANT DRAWN THIS AM RUDDY JIMENEZ 04/29 [place]itations [place] [id number] JOSEPH SNOW 05/04 [place] [id number] MAYANK MCNEIL 05/18 [place] OUT[place] [id number] OSITO HOU 05/20 [place] [facility] Outpatient Encounter [id number] KRISTAL BOLES 10/11 [facility] PSYCH DIAGNOSTIC EVALUATION [id number] [id number] Diagnos is: ICD-10- CM F43.12 Post-tr aumatic stress disorde r, chronic [place],CH RISTINE E 10/26 [facility] PSYTX W PT 60 MINUTES [id number] [id number] Diagnos is: ICD-10- CM F43.12 Post-tr aumatic stress disorde r, chronic [place],CH RISTINE E 11/01 [facility] PSYTX W PT 60 MINUTES [id number] [id number] Diagnos is: ICD-10- CM F43.12 Post-tr aumatic stress disorde r, chronic [place] RISTINE E 11/08 [facility] Outpatient Encounter [id number] GARRETT,BUTLERSonal LAGOS A 11/08 [facility] Outpatient Encounter [id number] 11/08 [facility] PSYTX W PT 60 MINUTES [id number] [id number] Diagnos is: ICD-10- CM F43.12 Post-tr aumatic stress disorde r, chronic [place],CH RISTINE E 11/15 [facility] Outpatient Encounter [id number] 11/22 [facility] PSYTX W PT 60 MINUTES [id number] [id number] Diagnos is: ICD-10- CM F43.12 Post-tr aumatic stress disorde r, chronic [place] RISTINE E 11/29 [facility] PSYTX W PT 60 MINUTES [id number] [id number] Diagnos is: ICD-10- CM F43.12 Post-tr aumatic stress disorde r, chronic [place],CH RISTINE E 12/04 [facility] OFFICE O/P NEW HI 60 MIN [id number] [id number] Diagnos is: ICD-10- CM F60.3 Borderl ine persona lity disorde r BETINA, SHARONA LEEESTHA 12/05 [facility] PSYTX W PT 60 MINUTES [id number] [id number] Diagnos is: ICD-10- CM F43.12 Post-tr aumatic stress disorde r, chronic [place],CH RISTINE E 12/20 [facility] PSYTX W PT 60 MINUTES [id number] [id number] Diagnos is: ICD-10- CM F43.12 Post-tr aumatic stress disorde r, chronic [place],CH RISTINE E 12/27 [facility] Outpatient Encounter [id number] [id number] 01/07 [facility] Outpatient Encounter [id number] [id number] 01/07 [facility] PSYTX W PT 60 MINUTES [id number] [id number] Diagnos is: ICD-10- CM F43.12 Post-tr aumatic stress disorde r, chronic [place],CH RISTINE E 01/10 [facility] HC PRO PHONE CALL 11-20 MIN [id number] [id number] Diagnos is: ICD-10- CM F43.12 Post-tr aumatic stress disorde r, chronic Kalin RAWLS P 01/11 [facility] Outpatient Encounter [id number] [id number] 01/15 [facility] Outpatient Encounter [id number] [id number] 495 TD MORTENSEN 01/15 [facility] OFFICE O/P EST MOD 30 MIN [id number] [id number] Diagnos is: ICD-10- CM F43.12 Post-tr aumatic stress disorde r, chronic Yuan'SHARONA CANNONA 01/15 [facility] PSYTX W PT 60 MINUTES [id number] [id number] Diagnos is: ICD-10- CM F43.12 Post-tr aumatic stress disorde r, chronic [place],CH RISTINE E 01/15 [facility] Outpatient Encounter [id number] [id number] 01/18 [facility] PSYTX W PT 60 MINUTES [id number] [id number] Diagnos is: ICD-10- CM F43.12 Post-tr aumatic stress disorde r, chronic [place],CH RISTINE E 01/22 [facility] Outpatient Encounter [id number] 01/29 [facility] Outpatient Encounter [id number] 01/31 [facility] Outpatient Encounter [id number] 02/04 [facility] PSYTX W PT 60 MINUTES [id number] Diagnos is: ICD-10- CM F43.12 Post-tr aumatic stress disorde r, chronic [place] R[place] E 02/05 [facility] Outpatient Encounter [id number] [place] R[place] E 02/12 [facility] Outpatient Encounter [id number] 02/12 [facility] Outpatient Encounter [id number] 1 [place] R[place] E 02/13 [facility] PSYTX W PT 60 MINUTES [id number] Diagnos is: ICD-10- CM F43.12 Post-tr aumatic stress disorde r, chronic [place] E 02/19 [facility] Outpatient Encounter [id number] [place] R[place] E 02/26 [facility] Outpatient Encounter [id number] 02/26 [facility] Outpatient Encounter [id number] 1 [place] R[place] E 02/27 [facility] Outpatient Encounter [id number] [place] R[place] E 02/28 [facility] Outpatient Encounter [id number] 02/28 [facility] Outpatient Encounter [id number] [place] R[place] E 03/05 [facility] Outpatient Encounter [id number] [place] R[place] E 03/06 [facility] Outpatient Encounter [id number] [place] R[place] E 03/07 [facility] PSYTX W PT 60 MINUTES 66572-8.65 [id number] 707 Diagnos is: ICD-10- CM F43.12 Post-tr aumatic stress disorde r, chronic [place] E 03/12 [facility] Outpatient Encounter 55963-8.65 [id number] 03/13 [facility] Outpatient Encounter 78640-7.65 [id number] [place] E 03/[address] [facility] Outpatient Encounter 13066-2.65 [id number] 03/[address] [facility] Outpatient Encounter 77338-8.65 [id number] LUKE TUCKER A 03/[address] [facility] Outpatient Encounter 61604-5.65 [id number] 03/[address] [facility] Outpatient Encounter 49779-4.65 [id number] [place] E 03/21 [facility] OFFICE O/P EST MOD 30 MIN 13076-4.65 [id number] 732 Diagnos is: ICD-10- CM F43.12 Post-tr aumatic stress disorde r, chronic O'SHARONA CANNONA 03/22 [facility] Outpatient Encounter 16137-6.65 [id number] [place] E 03/[address] [facility] Outpatient Encounter 47088-5.65 [id number] [place] E 03/27 [facility] Outpatient Encounter 57715-4.65 [id number] 03/29 [facility] Outpatient Encounter 18208-9.65 [id number] [place] E 04/09 [facility] PSYTX W PT 30 MINUTES 11451-4.65 [id number] 791 Diagnos is: ICD-10- CM F43.12 Post-tr aumatic stress disorde r, chronic [place] E 04/10 [facility] Outpatient Encounter 31753-5.65 [id number] MEGHAN CELIS Peggy 04/11 [facility] HC PRO PHONE CALL 11-20 MIN 19391-1.65 7PD.[id number] 791 Diagnos is: ICD-10- CM F12.10 Cannabi s abuse, uncompl icated MEGHAN CELIS Peggy 04/11 [facility] Outpatient Encounter 14522-1.65 [id number].[id number] 04/15 [facility] HC PRO PHONE CALL 5-10 MIN 26067-4.65 [id number] Diagnos is: ICD-10- CM F43.10 Post-tr aumatic stress disorde r, 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 AZUL ROSAS 04/15 [facility] HC PRO PHONE CALL 11-20 MIN 16553-5.65 7PD.[id number] 191 Diagnos is: ICD-10- CM F12.90 Cannabi s use, 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, uncompl icated VERNON MONROY 04/16 [facility] HC PRO PHONE CALL 5-10 MIN 32288-3.65 7PD.650545 566 Diagnos is: ICD-10- CM F10.21 Alcohol depende nce, in remissi on AZUL ROSAS 04/16 [facility] ALCOHOL AND/OR DRUG ASSESS 99839-9.65 7PD.898213 288 Diagnos is: ICD-10- CM F12.10 Cannabi s abuse, uncompl icated AZUL ROSAS 04/19 [facility] Outpatient Encounter 77042-6.65 [id number] AZUL ROSAS 04/19 [facility] PRO PHONE CALL 11-20 MIN 90345-7.65 7PD.170445 617 Diagnos is: ICD-10- CM F12.10 Cannabi s abuse, uncompl icated AZUL ROSAS 04/21 [facility] [place] [facility] HC PRO PHONE CALL 5-10 MIN 08447-9.65 [id number] 227 Diagnos is: ICD-10- CM Z59.9 Problem related to housing and economi c circums tances, unsp [facility]IL[facility] 04/[address] [facility] PSYCHOTHER APY 50948-9.65 7PD.738274 663 Diagnos is: ICD-10- CM F12.10 Cannabi s abuse, uncompl icated CLEMENCIA RAMOS 04/23 [facility] HC PRO PHONE CALL 11-20 MIN 46519-4.65 7PD.762721 090 Diagnos is: ICD-10- CM F12.10 Cannabi s abuse, uncompl icated VERNON MONROY 04/24 [facility] Outpatient Encounter 44256-9.65 [id number] KAM MÉNDEZ Jodie 05/07 [facility] OFFICE O/P EST MOD 30 MIN 45993-9.65 [id number] 658 Diagnos is: ICD-10- CM F12.10 Cannabi s abuse, uncompl icated SHARONA MOFFETT 05/22 [facility] Outpatient Encounter 47170-2.65 [id number] 05/23 [facility] En[facility] 08859-5.65 [id number] 05/24 [facility] Encounter 20295-3.65 [id number] 05/24 [facility] Outpatient Encounter 25877-5.65 [id number] 05/27 [facility] Outpatient Encounter 93690-0.65 [id number] 06/11 [facility] Outpatient Encounter 87295-9.65 [id number] 07/23 [facility] Outpatient Encounter 40000-5.65 [id number] 460 08/05 [facility] Outpatient Encounter 33382-3.65 [id number] 956 Diagnos is: ICD-10- CM F12.10 Cannabi s abuse, uncompl icated Ian GOMEZ 08/07 [facility] Outpatient Encounter 53594-1.65 [id number] 08/08 [facility] HC PRO PHONE CALL 5-10 MIN 03059-3.65 [id number] 969 Diagnos is: ICD-10- CM F12.20 Cannabi s depende nce, uncompl icated RAVI BROWNING 08/09 [facility] PROGRAM INTAKE ASSESSMENT 11901-7.65 [id number] 877 Diagnos is: ICD-10- CM F12.20 Cannabi s depende nce, uncompl icated RAVI BROWNING 08/09 [facility] Outpatient Encounter 91669-0.65 [id number] LUKE TUCKER 08/13 [facility] OFF[facility] O/P NEW LOW 30 MIN 12861-3.65 [id number] 335 Diagnos is: ICD-10- CM F10.90 Alcohol use, 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, uncompl icated Ian GOMEZ 08/19 [facility] Inpatient Encounter 07987-4.65 [id number] Admit Reason: POLYSUB STANCE DEPENDE NCE Ian GOMEZ 08/19 [facility] Inpatient Encounter 72798-2.65 [id number] Kalin OLMSTEAD 08/19 [facility] PSYCH DIAG EVAL W/MED SRVCS 14319-7.65 [id number] 491 Diagnos is: ICD-10- CM F12.20 Cannabi s depende nce, uncompl icated SEVERADO,A NGELA 08/19 [facility] SELF-HELP/ PEER SVC PER 15MIN 36827-5.65 [id number] 347 Diagnos is: ICD-10- CM F11.90 Opioid use, 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, uncompl icated PURCELLLEEROY R 08/19 [facility] PSYCH DIAG EVAL W/MED SRVCS 28455-8.65 [id number] 419 Diagnos is: ICD-10- CM F12.20 Cannabi s depende nce, uncompl icated HERIBERTO,A NGELA 08/19 [facility] ASA SELF-MGMT EDUC/TRAIN 5-8 PT 86187-3.65 7PD.667973 876 Diagnos is: ICD-10- CM F14.90 Cocaine use, 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, uncompl icated KHADRA COKER 08/19 [facility] SELF-MGMT EDUC/TRAIN 5-8 PT 56690-2.65 7PD.104421 760 Diagnos is: ICD-10- CM F11.90 Opioid use, 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, uncompl icated Hao OSPINA 08/19 [facility] Inpatient Encounter 41459-0.65 [id number] 318 Diagnos is: ICD-10- CM F14.90 Cocaine use, 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, uncompl icated Ian GOMEZ 08/20 [facility] Inpatient Encounter 10896-3.65 [id number] 370 Diagnos is: ICD-10- CM F11.90 Opioid use, 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, uncompl icated CLEMENCIA RAMOS 08/20 [facility] ALCOHOL AND/OR DRUG SERVICES 49441-2.65 [id number] 999 Diagnos is: ICD-10- CM F10.90 Alcohol use, 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, uncompl icated MEGHAN CELIS 08/20 [facility] ALCOHOL AND/OR DRUG ASSESS 38087-8.65 7PD.967336 435 Diagnos is: ICD-10- CM F12.20 Cannabi s depende nce, uncompl icated AZUL ROSAS 08/20 [facility] GROUP PSYCHOTHER APY 84982-8.65 [id number] 573 Diagnos is: ICD-10- CM F11.90 Opioid use, 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, uncompl icated ORTBALS,CR ISTA 08/20 [facility] ALCOHOL AND/OR DRUG SERVICES 84239-1.65 [id number] 588 Diagnos is: ICD-10- CM F10.90 Alcohol use, 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, uncompl icated VIMALMEGHAN E 08/20 [facility]OC [facility] 63325-4.65 [id number].[id number] 348 Diagnos is: ICD-10- CM F12.20 Cannabi s depende nce, uncompl icated LALY BRANCHU ABDELRAHMAN S 08/20 [facility] Inpatient Encounter [id number] AZUL ROSAS 08/20 [facility] SELF-MGMT EDUC/TRAIN 5-8 PT 70383-0.65 7PD.034117 350 Diagnos is: ICD-10- CM F14.90 Cocaine use, 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, uncompl icated Kalin OLMSTEAD 08/20 [facility] SELF-MGMT EDUC/TRAIN 5-8 PT 97681-2.65 7PD.766991 281 Diagnos is: ICD-10- CM F11.90 Opioid use, 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, uncompl icated Hao OSPINA 08/20 [facility] Inpatient Encounter 13577-3.65 [id number] 343 08/21 [facility] Inpatient Encounter 34598-2. [id number] 564 Diagnos is: ICD-10- CM F41.9 Anxiety disorde r, 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 Keyana LOUIS NGELA 08/21 [facility] [employer] 88448-2.65 [id number] 839 Diagnos is: ICD-10- CM Z71.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 jayme ARMENTAALBERTO M 08/21 [facility] ALCOHOL AND/OR DRUG SERVICES 30430-9.65 [id number] 965 Diagnos is: ICD-10- CM F12.20 Cannabi s depende nce, uncompl icated AZUL ROSASRENETTA Kalin 08/21 [facility] GROUP PSYCHOTHER APY 90185-7.65 [id number] 500 Diagnos is: ICD-10- CM F12.10 Cannabi s abuse, uncompl icated BACKCLEMENCIA RODRIGUEZ 08/21 [facility] GROUP HEALTH EDUCATION 11443-3.65 [id number] 732 Diagnos is: ICD-10- CM F12.20 Cannabi s depende nce, uncompl icated DANAKeyana QUACH NGELA 08/21 [facility] SELF-MGMT EDUC/TRAIN 5-8 PT 23555-6.65 7PD.562251 514 Diagnos is: ICD-10- CM F11.90 Opioid use, 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, uncompl icated STANLEY,CHR ISTOPHER S 08/21 [facility] SELF-MGMT EDUC/TRAIN 5-8 PT 94972-5.65 7PD.784193 358 Diagnos is: ICD-10- CM F12.10 Cannabi s abuse, uncompl icated VEMULAPALL I-LUCIANAKYLEBETSY 08/21 [facility] PT EDUCATION NOC GROUP 53768-6.65 [id number] 825 Diagnos is: ICD-10- CM F12.10 Cannabi s abuse, uncompl icated BACKESCLEMENCIA 08/22 [facility] [employer] 80696-8.65 [id number] 485 Diagnos is: ICD-10- CM Z71.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 ing GEOVANYALBERTO 08/22 [facility] PT EDUCATION NOC GROUP 99677-8.65 [id number] 388 Diagnos is: ICD-10- CM F12.20 Cannabi s depende nce, uncompl icated BACKES,CLEMENCIA Sosa 08/22 [facility] ALCOHOL AND/OR DRUG SERVICES 53786-2.65 [id number] 342 Diagnos is: ICD-10- CM F12.20 Cannabi s depende nce, uncompl icated RALPHDENYSBoston Gagnon 08/22 [facility] ALCOHOL AND/OR DRUG SERVICES 72607-3.65 [id number] 862 Diagnos is: ICD-10- CM F11.90 Opioid use, 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, uncompl icated VERNON MONROY 08/22 [facility] SELF-MGMT EDUC/TRAIN 5-8 PT 65673-2.65 7PD.797456 839 Diagnos is: ICD-10- CM F12.10 Cannabi s abuse, uncompl icated STANLEY,CHR ISTOPHER S 08/22 [facility] SELF-MGMT EDUC/TRAIN 5-8 PT 38228-1.65 7PD.410329 645 Diagnos is: ICD-10- CM F12.10 Cannabi s abuse, uncompl icated VEMULAPALL I-LUCIANABETSY FREED 08/22 [facility] SELF-HELP/ PEER SVC PER 15MIN 63604-6.65 7A0.338503 336 Diagnos is: ICD-10- CM F12.20 Cannabi s depende nce, uncompl icated WILL SHERIFF 08/23 [facility] GROUP PSYCHOTHER APY 38822-4.65 [id number] 319 Diagnos is: ICD-10- CM F12.20 Cannabi s depende nce, uncompl icated CLEMENCIA RAMOS 08/23 [facility] PSYTX W PT W E/M 30 MIN 36093-5.65 [id number] 210 Diagnos is: ICD-10- CM G47.00 Insomni a, 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 ROOSEVELT TRAN 08/23 [facility] SELF-MGMT EDUC/TRAIN 5-8 [place] 87039-6.65 7PD.305256 391 Diagnos is: ICD-10- CM F11.90 Opioid use, 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, uncompl icated Kalin OLMSTEAD 08/23 [facility] SELF-MGMT EDUC/TRAIN 5-8 [place] 41202-5.65 7PD.504540 144 Diagnos is: ICD-10- CM F11.90 Opioid use, 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, uncompl icated Hao OSPINA 08/23 [facility] SELF-MGMT EDUC/TRAIN 5-8 [place] 37425-7.65 7PD.402996 398 Diagnos is: ICD-10- CM F14.90 Cocaine use, 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, uncompl icated Kalin OLMSTEADEKE 08/24 [facility] SELF-MGMT EDUC/TRAIN 5-8 PT 52071-4.65 7PD.376714 364 Diagnos is: ICD-10- CM F11.90 Opioid use, 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, uncompl icated SLEMODESTA,W ILLIAM J 08/24 [facility] SELF-MGMT EDUC/TRAIN 5-8 PT 09075-6.65 7PD.505988 273 Diagnos is: ICD-10- CM F10.90 Alcohol use, 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, uncompl icated KHADRA COKER 08/25 [facility] [employer] 47579-6.65 7A0.137643 477 Diagnos is: ICD-10- CM Z71.81 Spiritu al or religio counseling center manager KAYLAN Hagan 08/25 [facility] ALCOHOL AND/OR DRUG SERVICES 69217-4.65 [id number] 148 Diagnos is: ICD-10- CM F14.90 Cocaine use, 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, uncompl icated BRUNO DAHL P 08/25 [facility] SELF-MGMT EDUC/TRAIN 5-8 [place] 21842-3.65 7PD.184318 620 Diagnos is: ICD-10- CM F11.90 Opioid use, 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, uncompl icated SLEYSTERW ILLIAM J 08/25 [facility] ALCOHOL AND/OR DRUG SERVICES 10923-8.65 7A0.695588 916 Diagnos is: ICD-10- CM F12.20 Cannabi s depende nce, uncompl icated AZUL ROSAS 08/26 [facility] GROUP PSYCHOTHER APY 12744-0.65 [id number] 757 Diagnos is: ICD-10- CM F12.20 Cannabi s depende nce, uncompl icated CLEMENCIA RAMOS 08/26 [facility] OFFICE O/P EST MOD 30 MIN 73559-9.65 [id number] 778 Diagnos is: ICD-10- CM F43.12 Post-tr aumatic stress disorde r, chronic BENSON SHAIKH S 08/26 [facility] SELF-MGMT EDUC/TRAIN 5-8 [place] 23875-5.65 7A0.625241 689 Diagnos is: ICD-10- CM 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, unsp w unsp disorde r KENNETHADYRADHA R 08/26 [facility] IVNTJ GRP 1ST 30 64007-7.65 7A0.127969 262 Diagnos is: ICD-10- CM F12.20 Cannabi s depende nce, uncompl icated ROMANA COOK L 08/26 [facility] [employer] FEEDER INDIVIDU 95016-8.65 [id number] 192 Diagnos is: ICD-10- CM Z71.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 ALBERTO Evans 08/26 [facility] IVNT GRP 70268-7.65 7A0.060288 935 Diagnos is: ICD-10- CM F12.20 Cannabi s depende nce, uncompl icated JOEYROMANA PRASAD S L 08/26 [facility] SELF-MGMT EDUC/TRAIN 5-8 PT 54333-4.65 7PD.942418 332 Diagnos is: ICD-10- CM F11.90 Opioid use, 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, uncompl icated MUGOYA,ROS EMARY K 08/26 [facility] IVNT GRP 26295-4.65 7A0.456504 419 Diagnos is: ICD-10- CM F12.20 Cannabi s depende nce, uncompl icated ROMANA COOK S L 08/27 [facility] GROUP PSYCHOTHER APY 61646-8.65 [id number] 554 Diagnos is: ICD-10- CM F12.20 Cannabi s depende nce, uncompl icated ORTBALS,CR ISTA 08/27 [facility] ALCOHOL AND/OR DRUG SERVICES 06594-3.65 [id number] 737 Diagnos is: ICD-10- CM F12.20 Cannabi s depende nce, uncompl icated DENYS ROSASBoston PRASADRENETTA J 08/27 [facility] SELF-MGMT EDUC/TRAIN 5-8 PT 89319-4.65 7PD.438664 774 Diagnos is: ICD-10- CM F12.10 Cannabi s abuse, uncompl icated STANLEY,CHR ISTOPHER S 08/27 [facility] SELF-MGMT EDUC/TRAIN 5-8 PT 57159-765 7PD.118485 621 Diagnos is: ICD-10- CM F12.10 Cannabi s abuse, uncompl icated JAMESL Maria C-BETSY CHOWDHURY 08/27 [facility] HL[facility] BHV IVNTJ GRP 1ST 30 26694-2.65 7A0.368778 456 Diagnos is: ICD-10- CM F12.20 Cannabi s depende nce, uncompl icated ROMANA COOK L 08/28 [facility] [employer] 74874-2.65 [id number] 743 Diagnos is: ICD-10- CM Z71.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 KAYLAN Hagan 08/28 [facility] CASE MANAGEMENT 58309-2.65 [id number] 577 Diagnos is: ICD-10- CM F12.10 Cannabi s abuse, uncompl icated BACKES,CLEMENCIA Sosa 08/28 [facility] GROUP PSYCHOTHER APY 45202-1.65 [id number] 012 Diagnos is: ICD-10- CM F12.10 Cannabi s abuse, uncompl icated BACKCLEMENCIA RODRIGUEZ 08/28 [facility] ALCOHOL AND/OR DRUG SERVICES 73346-2.65 [id number] 059 Diagnos is: ICD-10- CM F14.90 Cocaine use, 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, uncompl icated LANDBRUNOJodie ROBERTSON P 08/28 [facility] OFFICE O/P EST SF 10 MIN 54826-3.65 7A0.329582 502 Diagnos is: ICD-10- CM N64.9 Disorde r of breast, 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 Ian GOMEZ 08/28 [facility] SELF-MGMT EDUC/TRAIN 5-8 [place] 90035-8.65 7PD.916885 156 Diagnos is: ICD-10- CM F14.90 Cocaine use, 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, uncompl icated HUNTER TOLBERT W 08/28 [facility] SELF-MGMT EDUC/TRAIN 5-8 PT 48083-4.65 7PD.599595 690 Diagnos is: ICD-10- CM F11.90 Opioid use, 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, uncompl icated ANAIW LUCYIAIan J 08/28 [facility] SELF-MGMT EDUC/TRAIN 5-8 PT 56367-9.65 7PD.681619 579 Diagnos is: ICD-10- CM F11.90 Opioid use, 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, uncompl icated ANAI,W KAISER J 08/29 [facility] BHV IVNTJ GRP 1ST 30 44827-0.65 7A0.918018 890 Diagnos is: ICD-10- CM F12.20 Cannabi s depende nce, uncompl icated JOEY,CURTI S L 08/30 [facility] PT EDUCATION NOC GROUP 46264-9.65 [id number] 953 Diagnos is: ICD-10- CM F11.90 Opioid use, 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, uncompl icated GIORGIO,PHYLLIS Y A 08/30 [facility] SELF-MGMT EDUC/TRAIN 5-8 PT 17301-1.65 7PD.755734 080 Diagnos is: ICD-10- CM F11.90 Opioid use, 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, uncompl icated HUNTER TOLBERT 08/30 [facility] SELF-MGMT EDUC/TRAIN 5-8 PT 90150-8.65 7PD.057502 473 Diagnos is: ICD-10- CM F11.90 Opioid use, 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, uncompl icated MUGOYAANN 08/30 [facility] SELF-MGMT EDUC/TRAIN 5-8 PT 21623-1.65 7PD.332610 523 Diagnos is: ICD-10- CM F11.90 Opioid use, 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, uncompl icated HUNTER TOLBERT 08/31 [facility] SELF-MGMT EDUC/TRAIN 5-8 PT 17752-0.65 7PD.078299 451 Diagnos is: ICD-10- CM F12.10 Cannabi s abuse, uncompl icated VEMULAPALL Maria C-KYLE CHOWDHURYINE 08/31 [facility] [employer] OFF[employer] PR[employer] FEEDER INDIVIDU 36481-9.65 7A0.718689 008 Diagnos is: ICD-10- CM Z71.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 ALBERTO Evans 09/02 [facility] ALCOHOL AND/OR DRUG SERVICES 66534-1.65 [id number] 644 Diagnos is: ICD-10- CM F12.20 Cannabi s depende nce, uncompl icated AZUL ROSAS 09/02 [facility] WEIGHER BULKER ASSESSMENT 87523-0.65 7A0.001027 756 Diagnos is: ICD-10- CM Z71.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 ALBERTO Evans 09/02 [facility] ALCOHOL AND/OR DRUG SERVICES 69955-7.65 7A0.166291 147 Diagnos is: ICD-10- CM F10.90 Alcohol use, 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, uncompl icated MEGHAN CELIS 09/02 [facility] PSYCHOTHER APY 76881-4.65 [id number] 177 Diagnos is: ICD-10- CM F12.20 Cannabi s depende nce, uncompl icated CLEMENCIA RAMOS 09/02 [facility] ALCOHOL AND/OR DRUG SERVICES 56386-8.65 [id number] Diagnos is: ICD-10- CM F14.90 Cocaine use, 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, uncompl icated BRUNO DAHL 09/02 [facility] SELF-MGMT EDUC/TRAIN 5-8 [place] 79134-4.65 [id number] 171 Diagnos is: ICD-10- CM 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, 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 RADHA COOPER 09/02 [facility] IVNTJ GRP 1ST 30 16414-7.65 [id number] 656 Diagnos is: ICD-10- CM F12.20 Cannabi s depende nce, uncompl icated JOEY,CURTI S L 09/02 [facility] SELF-MGMT EDUC/TRAIN 5-8 [place] 81884-3.65 [id number] 274 Diagnos is: ICD-10- CM F11.90 Opioid use, 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, uncompl icated HUNTER TOLBERT 09/02 [facility] SELF-MGMT EDUC/TR[place] 5-[place] [address]-1.65 [id number] 023 Diagnos is: ICD-10- CM F11.90 Opioid use, 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, uncompl icated Hao OSPINA 09/02 [facility] IVNTJ GRP 1ST 30 74345-0.65 [id number] 996 Diagnos is: ICD-10- CM F12.20 Cannabi s depende nce, uncompl icated JOEY,CURTI S L 09/03 [facility] GROUP PSYCHOTHER APY 60170-5.65 [id number] 875 Diagnos is: ICD-10- CM F11.90 Opioid use, 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, uncompl icated ORNELI KILPATRICK ISTA 09/03 [facility] ALCOHOL AND/OR DRUG SERVICES 33842-4.65 [id number] 197 Diagnos is: ICD-10- CM F12.20 Cannabi s depende nce, uncompl icated AZUL ROSAS 09/03 [facility] ALCOHOL AND/OR DRUG SERVICES 06922-1.65 [id number] 074 Diagnos is: ICD-10- CM F12.20 Cannabi s depende nce, uncompl icated AZUL ROSAS 09/03 [facility] SELF-MGMT EDUC/TRAIN 5-8 [place] 61658-9.65 [id number] 511 Diagnos is: ICD-10- CM F11.90 Opioid use, 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, uncompl icated SHIRLEY CANNON 09/03 [facility] ALCOHOL AND/OR DRUG SERVICES 17151-3.65 [id number] 774 Diagnos is: ICD-10- CM F12.20 Cannabi s depende nce, uncompl icated AZUL ROSAS 09/03 [facility] ALCOHOL AND/OR DRUG SERVICES 59393-4.65 [id number] 538 Diagnos is: ICD-10- CM F12.20 Cannabi s depende nce, uncompl icated AZUL ROSAS 09/03 [facility] [id number] [id number] AZUL ROSAS 09/03 [facility] Inpatient Encounter 41230-4.65 [id number] 710 Diagnos is: ICD-10- CM R45.851 Suicida l ideatio ns Keyana LOUIS 09/03 [facility] SELF-MGMT EDUC/TRAIN 5-8 [place] 16535-7.65 [id number] 986 Diagnos is: ICD-10- CM F11.90 Opioid use, 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, uncompl icated ANN MONTERORY K 09/03 [facility] SELF-MGMT EDUC/TRAIN 5-8 [place] 97387-2.65 [id number] 569 Diagnos is: ICD-10- CM F12.20 Cannabi s depende nce, uncompl icated ANN MONTERORY K 09/03 [facility] IVNTJ GRP 1ST 30 66446-6.65 [id number] 290 Diagnos is: ICD-10- CM F12.20 Cannabi s depende nce, uncompl icated JOEY,LESTERTI S L 09/04 [facility] THERAPEUTI C PROCEDURES 91291-2.65 [id number] 261 Diagnos is: ICD-10- CM F12.20 Cannabi s depende nce, uncompl icated THERESABIENVENIDO CONROY L 09/04 [facility] [employer] [facility] 60799-2.65 [id number] 129 Diagnos is: ICD-10- CM Z71.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 jayme ALBERTO ARMENTA 09/04 [facility] OT EVAL LOW COMPLEX 30 MIN 10223-6.65 [id number] 775 Diagnos is: ICD-10- CM F12.20 Cannabi s depende nce, uncompl icated THERESABIENVENIDO CONROY 09/04 [facility] GROUP PSYCHOTHER APY 67039-4.65 [id number] 329 Diagnos is: ICD-10- CM F11.90 Opioid use, 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, uncompl icated ORTBALS,CR ISTA 09/04 [facility] GROUP HEALTH EDUCATION 20439-9.65 [id number] 136 Diagnos is: ICD-10- CM F12.20 Cannabi s depende nce, uncompl icated SEVERADO,A NGELA 09/04 [facility] SELF-MGMT EDUC/TRAIN 5-8 PT 15808-3.65 [id number] Diagnos is: ICD-10- CM F12.10 Cannabi s abuse, uncompl icated STANLEY,CHR ISTOPHER S 09/04 [facility] SELF-MGMT EDUC/TRAIN 5-8 [place] 10336-7.65 [id number] 669 Diagnos is: ICD-10- CM F12.20 Cannabi s depende nce, uncompl icated MUGOYA,ROS EMARY K 09/04 [facility] BHV IVNTJ GRP 1ST 30 03272-6.65 [id number] 525 Diagnos is: ICD-10- CM F12.20 Cannabi s depende nce, uncompl icated JOEY,CURTI S L 09/05 [facility] WEIGHER BULKER WEB OFFSET PRESS FEEDER INDIVIDU 28779-3.65 [id number] 183 Diagnos is: ICD-10- CM Z71.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 ALBERTO Evans 09/05 [facility] PT EDUCATION NOC GROUP 50280-8.65 [id number] 514 Diagnos is: ICD-10- CM F11.90 Opioid use, 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, uncompl icated GIORGIO,PHYLLIS Y A 09/05 [facility] ALCOHOL AND/OR DRUG SERVICES 00912-8.65 [id number] 325 Diagnos is: ICD-10- CM F10.90 Alcohol use, 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, uncompl icated AZUL ROSAS J 09/05 [facility] GROUP THERAPEUTI C PROCEDURES 48938-6.65 [id number] 051 Diagnos is: ICD-10- CM Z71.89 Other specifi ed counseling center manager JESSE Elaine 09/05 [facility] HLTH BHV IVNTJ GRP 34459-5.65 [id number] 007 Diagnos is: ICD-10- CM F12.20 Cannabi s depende nce, uncompl icated JOEY,CURTI S L 09/05 [facility] SARRTP SELF-MGMT EDUC/TRAIN 5-8 [place] 83016-8.65 [id number] 193 Diagnos is: ICD-10- CM F12.10 Cannabi s abuse, uncompl icated STANLEY,CHR ISTOPHER S 09/05 [facility] SELF-MGMT EDUC/TRAIN 5-8 PT 90535-3.65 [id number] 035 Diagnos is: ICD-10- CM F11.90 Opioid use, 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, uncompl icated SHAHZAD AGUSTIN L 09/05 [facility] IVNT GRP 1ST 30 02983-7.65 [id number] 192 Diagnos is: ICD-10- CM F12.20 Cannabi s depende nce, uncompl icated JOEYCURTI S L 09/06 [facility] ALCOHOL AND/OR DRUG SERVICES 30804-7.65 [id number] 121 Diagnos is: ICD-10- CM F12.20 Cannabi s depende nce, uncompl icated JASMINASANTOSDENYSBoston PRASADRENETTA J 09/06 [facility] IVNTJ GRP 30 [id number] [id number] 281 Diagnos is: ICD-10- CM F12.20 Cannabi s depende nce, uncompl icated JOEYCURTI S L 09/06 [facility] PSYCHOTHER APY 77323-8.65 [id number] 322 Diagnos is: ICD-10- CM F12.10 Cannabi s abuse, uncompl icated CLEMENCIA RAMOS 09/06 [facility] SELF-MGMT EDUC/TRAIN 5-8 PT 80886-1.65 [id number].[id number] 028 Diagnos is: ICD-10- CM F14.90 Cocaine use, 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, uncompl icated Kalin OLMSTEAD FRANCOISE 09/06 [facility] SELF-MGMT EDUC/TRAIN 5-8 PT 97205-3.65 [id number].[id number] 010 Diagnos is: ICD-10- CM F12.20 Cannabi s depende nce, uncompl icated SHAHZAD AGUSTIN L 09/06 [facility] SELF-MGMT EDUC/TRAIN 5-8 [place] 90674-8.65 [id number] 335 Diagnos is: ICD-10- CM F14.90 Cocaine use, 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, uncompl icated Kalin OLMSTEAD FRANCOISE 09/07 [facility] SELF-MGMT EDUC/TRAIN 5-8 [place] 52898-2.65 [id number] 307 Diagnos is: ICD-10- CM F11.90 Opioid use, 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, uncompl icated SHAHZAD AGUSTIN L 09/07 [facility] SELF-MGMT EDUC/TRAIN 5-8 [place] 46921-7.65 [id number] 291 Diagnos is: ICD-10- CM F12.20 Cannabi s depende nce, uncompl icated KHADRA COKER 09/08 [facility] WEIGHER BULKER WEB OFFSET PRESS FEEDER INDIVIDU 81087-9.65 [id number] Diagnos is: ICD-10- CM Z71.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 ALBERTO Evans 09/08 [facility] HANNAH Saini [facility] WEIGHER BULKER WEB OFFSET PRESS FEEDER GROUP 72556-6.65 [id number] 528 Diagnos is: ICD-10- CM Z71.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 KAYLAN Hagan 09/08 [facility] Inpatient Encounter [id number] [id number] Diagnos is: ICD-10- CM F12.20 Cannabi s depende nce, uncompl icated Keyana LOUIS NGELA 09/08 [facility] SELF-MGMT EDUC/TRAIN 5-8 PT 70324-4.65 [id number].[id number] 396 Diagnos is: ICD-10- CM F11.90 Opioid use, 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, uncompl icated Hao OSPINA 09/08 [facility] Outpatient Encounter [id number] [id number] AZUL ROSAS 09/09 [facility] Inpatient Encounter [id number] [id number] Kalin OLMSTEAD 09/09 [facility] Inpatient Encounter 01407-8.65 [id number] Diagnos is: ICD-10- CM F12.20 Cannabi s depende nce, uncompl icated HERIBERTO,Keyana NGELA 09/09 [facility] CASE MANAGEMENT 10522-5.65 [id number] 719 Diagnos is: ICD-10- CM F12.10 Cannabi s abuse, uncompl icated CLEMENCIA RAMOS 09/09 [facility] Outpatient Encounter [id number] [id number] TD MORTENSEN 09/10 [facility] OFFICE O/P EST HI 40 MIN 43104-4.65 [id number] 758 Diagnos is: ICD-10- CM F43.12 Post-tr aumatic stress disorde r, chronic O'DAVISSHARONA MUIR 09/10 [facility] BHV ASSMT/REAS SESSMENT [id number] [id number] Diagnos is: ICD-10- CM Z63.0 Problem s in relatio nship with spouse or partner GREGBARRON 09/10 [facility] HC PRO PHONE CALL 5-10 MIN [id number] [id number] Diagnos is: ICD-10- CM F12.20 Cannabi s depende nce, uncompl icated AZUL ROSAS 09/10 [facility] HC PRO PHONE CALL 5-10 MIN [id number] [id number].[id number] 232 Diagnos is: ICD-10- CM F11.90 Opioid use, 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, uncompl AZUL Barfield 09/10 [facility] Outpatient Encounter [id number] [id number] 09/11 [facility] HC PRO PHONE CALL 5-10 MIN 25899-7.65 [id number] Diagnos is: ICD-10- CM F12.20 Cannabi s depende nce, uncompl icated AZUL ROSAS 09/12 [facility] HC PRO PHONE CALL 5-10 MIN 06337-7.65 [id number] 045 Diagnos is: ICD-10- CM F12.20 Cannabi s depende nce, uncompl icated AZUL ROSAS 09/17 [facility] HC PRO PHONE CALL 5-10 MIN 14704-9.65 [id number] 472 Diagnos is: ICD-10- CM F12.20 Cannabi s depende nce, uncompl icated AZUL ROSAS Kalin 09/19 [facility] HC PRO PHONE CALL 5-10 MIN 73168-9.65 [id number] Diagnos is: ICD-10- CM F12.20 Cannabi s depende nce, uncompl icated DENYS ROSASBoston SHANICERENETTA Gagnon 09/26 [facility] ALCOHOL AND/OR DRUG SERVICES 51469-4.65 [id number].[id number] 030 Diagnos is: ICD-10- CM F12.20 Cannabi s depende nce, uncompl icated AZUL ROSAS Kalin 10/08 [facility] PH1 ASSMT&MGMT NQHP 5-10 75110-8.65 [id number] 601 Diagnos is: ICD-10- CM F12.20 Cannabi s depende nce, uncompl icated RAVI BROWNING 10/09 [facility] Outpatient Encounter [id number] [id number] 10/09 [facility] Outpatient Encounter [id number] [id number] 10/10 [facility] Outpatient Encounter 93370-5.65 [id number] 10/10 [facility] ALCOHOL AND/OR DRUG SERVICES 99122-0.65 [id number] 120 Diagnos is: ICD-10- CM F11.90 Opioid use, 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, uncompl icated VERNON MONROY 10/10 [facility] WEIGHER BULKER WEB OFFSET PRESS FEEDER INDIVIDU 32335-4.65 [id number] Diagnos is: ICD-10- CM Z71.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 ALBERTO Evans 10/13 [facility] PH1 ASSMT&MGMT NQHP 11-20 90867-6.65 [id number].[id number] 262 Diagnos is: ICD-10- CM F11.90 Opioid use, 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, uncompl icated VERNON MONROY 10/14 [facility] Outpatient Encounter [id number] [id number] 10/14 [facility] Outpatient Encounter 90929-5.65 [id number] 10/15 [facility] CASE MANAGEMENT 79496-5.65 [id number] 148 Diagnos is: ICD-10- CM F60.3 Borderl ine persona lity dischris DAHL AM ROMULO K 10/16 [facility] Outpatient Encounter 92297-4.65 [id number] 10/17 [facility] Outpatient Encounter [id number] [id number] 636 10/17 [facility] CASE MANAGEMENT 81349-8.65 [id number] 824 Diagnos is: ICD-10- CM F60.3 Borderl ine persona lity dischris DAHL AM ROMULO K 10/30 [facility] ALCOHOL AND/OR DRUG SERVICES 66432-6.65 [id number] 036 Diagnos is: ICD-10- CM F11.90 Opioid use, 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, uncompl icated VERNON MONROY 10/31 [facility] Outpatient Encounter [id number] [id number] 297 11/06 [facility] Outpatient Encounter [id number] [id number] LUKE TUCKER YOLIS A 11/06 [facility] Outpatient Encounter [id number] [id number] LUKE TUCKER YOLIS A 11/07 [facility] ALCOHOL AND/OR DRUG SERVICES [id number] [id number] 286 Diagnos is: ICD-10- CM F11.90 Opioid use, 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, uncompl icated VERNON MONROY 11/07 [facility] Outpatient Encounter 00350-2.65 [id number] 914 11/08 [facility] Outpatient Encounter [id number] [id number] 11/12 [facility] Outpatient Encounter 90724-5.65 [id number] CHIDI GILLIAM 11/27 [facility] Outpatient Encounter 72614-3.65 [id number] 11/29 [facility] Outpatient Encounter [id number] [id number] 12/02 [facility] GROUP PSYCHOTHER APY 14070-3.65 [id number] Diagnos is: ICD-10- CM F12.10 Cannabi s abuse, uncompl icated CHIDI GILLIAM SVETA M 12/04 [facility] Outpatient Encounter [id number] [id number] 12/11 [facility] Outpatient Encounter [id number] [id number] CHIDI GILLIAM M 12/23 [facility] Outpatient Encounter [id number] [id number] 530 GILLIAMCHIDI M 12/25 [facility] Outpatient Encounter [id number] [id number] 445 12/30 [facility] Outpatient Encounter [id number] [id number] 788 01/08 [facility] OFFICE O/P EST MOD 30 MIN 60739-6.65 [id number] Diagnos is: ICD-10- CM F12.20 Cannabi s depende nce, uncompl icated SHARONA MOFFETT 02/05 [facility] Procedures Combined list of: 1) Procedures from Department of Veterans Affairs facilities going back up to thelast 18 months, not all VA non-surgical procedures are included; 2) All procedures from the Department of Defense facilities. Procedure Procedure Type Code Date Perfomer Comments Sourc e DETERMINATION OF REFRACTIVE STATE 006 DoD INTRODUCTION OF NEEDLE OR INTRACATHETER, VEIN 008 DoD INFUSION, NORMAL SALINE SOLUTION , 1000 CC 008 DoD HEPATITIS A VACCINE (HEPA), ADULT DOSAGE, FOR INTRAMUSCULAR USE DoD VIS FUNCT SCREEN,AUTOMAT/SEMI-A UTOMAT BILAT QUANT DETERM VISUAL ACUITY,OCULAR ALIGN,COLOR VISION,PSEUDOISOCHROM AT PLATES,& FIELD VIS (MAY INC ALL/SOME SCRN DETERM FOR CONTRAST SENSITIV,VIS UND GLARE) DoD SKIN TEST; TUBERCULOSIS, INTRADERMAL DoD ANALYSIS OF CLINICAL DATA STORED IN COMPUTERS (EG, ECGS, BLOOD PRESSURES, HEMATOLOGIC DATA) DoD PREPARATION OF REPORT OF PATIENT'S PSYCHIATRIC STATUS, HISTORY, TREATMENT, OR PROGRESS (OTHER THAN FOR LEGAL OR CONSULTATIVE PURPOSES) FOR OTHER INDIVIDUALS, AGENCIES, OR INSURANCE CARRIERS DoD PREPARATION OF REPORT OF PATIENT'S PSYCHIATRIC STATUS, HISTORY, TREATMENT, OR PROGRESS (OTHER THAN FOR LEGAL OR CONSULTATIVE PURPOSES) FOR OTHER INDIVIDUALS, AGENCIES, OR INSURANCE CARRIERS DoD ULTRASOUND, UTERUS, REAL TIME WITH IMAGE DOCUMENTATION,TRANSVA GINAL DoD ENVIRONMENTAL INTERVENTION FOR MEDICAL MGMT PURPOSES ON A PSYCHIATRIC PATIENT'S BEHALF WITH AGENCIES, EMPLOYERS, OR INSTITUTIONS DoD ULTRASOUND, UTERUS, REAL TIME WITH IMAGE DOCUMENTATION,TRANSVA GINAL DoD INDIVIDUAL PSYCHOTHERAPY, INSIGHT ORIENTED, BEHAVIOR MODIFYING AND/OR SUPPORTIVE, IN AN OFFICE OR OUTPATIENT FACILITY, APPROXIMATELY 20 TO 30 MINUTES [id number] WITH THE PATIENT DoD ACOUSTIC REFLEX TESTING; DECAY DoD INDIVIDUAL PSYCHOTHERAPY, INSIGHT ORIENTED, BEHAVIOR MODIFYING AND/OR SUPPORTIVE, IN AN OFFICE OR OUTPATIENT FACILITY, APPROXIMATELY 45 TO 50 MINUTES [id number] W THE PATIENT; W MED EVAL & MGT SER DoD INDIVIDUAL PSYCHOTHERAPY, INSIGHT ORIENTED, BEHAVIOR MODIFYING AND/OR SUPPORTIVE, IN AN OFFICE OR OUTPATIENT FACILITY, APPROXIMATELY 20 TO 30 MINUTES [id number] WITH THE PATIENT DoD INDIVIDUAL PSYCHOTHERAPY, INSIGHT ORIENTED, BEHAVIOR MODIFYING AND/OR SUPPORTIVE, IN AN OFFICE OR OUTPATIENT FACILITY, APPROXIMATELY 75 TO 80 MINUTES [id number] W THE PATIENT; W MED EVAL & MGT SER DoD ECHOCARDIOGRAPHY, TRANSTHORACIC, REAL-TIME WITH IMAGE DOCUMENTATION (2D), INCLUDES M-MODE RECORDING, WHEN PERFORMED, FOLLOW-UP OR LIMITED STUDY DoD INJECTION, ATROPINE SULFATE, UP TO 0.3 MG DoD INJECTION, CEFTRIAXONE SODIUM, PER 250 MG [facility] PSYCHIATRIC DIAGNOSTIC INTERVIEW EXAMINATION DoD INDIVIDUAL PSYCHOTHERAPY, INSIGHT ORIENTED, BEHAVIOR MODIFYING AND/OR SUPPORTIVE, IN AN OFFICE OR OUTPATIENT FACILITY, APPROXIMATELY 45 TO 50 MINUTES [id number] W THE PATIENT; W MED EVAL & MGT SER [facility] INDIVIDUAL PSYCHOTHERAPY, INSIGHT ORIENTED, BEHAVIOR MODIFYING AND/OR SUPPORTIVE, IN AN OFFICE OR OUTPATIENT FACILITY, APPROXIMATELY 75 TO 80 MINUTES [id number]-FO-[id number] WITH THE PATIENT [facility] PSYCHIATRIC DIAGNOSTIC INTERVIEW EXAMINATION DoD SUPP &MATERIAL (EXCEPT SPECTACLE),PROVID,THE [facility]/OTH QUALIFIED HEALTH HELICOPTER PILOT OVER &ABOVE THOSE USUALLY INCLD W THE OFFICE VISIT/OTH SER RENDERED (LIST DRUG,TRAYS,SUPP,OR MATERIAL PROVID) [facility] INCISION AND DRAINAGE OF ABSCESS (EG, CARBUNCLE, SUPPURATIVE HIDRADENITIS, CUTANEOUS OR SUBCUTANEOUS ABSCESS, CYST, FURUNCLE, OR PARONYCHIA); SIMPLE OR SINGLE [facility] CURRENT TOBACCO SMOKER (CAD, CAP, COPD, PV) (DM) [facility] CURRENT TOBACCO SMOKER (CAD, CAP, COPD, PV) (DM) [facility] INDIVIDUAL PSYCHOTHERAPY, INSIGHT ORIENTED, BEHAVIOR MODIFYING AND/OR SUPPORTIVE, IN AN OFFICE OR OUTPATIENT FACILITY, APPROXIMATELY 45 TO 50 MINUTES [id number] W THE PATIENT; W MED EVAL & MGT SER [facility] POSTOPERATIVE FOLLOW-UP VISIT, NORMALLY INCLUDED IN THE SURGICAL PACKAGE, INDICATE THAT EVALUATION & MANAGEMENT SERVICE WAS PERFORMED DURING A POSTOPERATIVE PERIOD REASON RELATED ORIGINAL PROCEDURE [facility] ELECTROCARDIOGRAM, ROUTINE ECG WITH AT LEAST 12 LEADS; WITH INTERPRETATION AND REPORT [facility] PSYCHIATRIC EVALUATION OF HOSPITAL RECORDS, OTHER PSYCHIATRIC REPORTS, PSYCHOMETRIC AND/OR PROJECTIVE TESTS, AND OTHER ACCUMULATED DATA FOR MEDICALDIAGNOSTIC PURPOSES [facility] APPLICATION OF SHORT LEG CAST (BELOW KNEE TO TOES); [facility] APPLICATION OF SHORT LEG CAST (BELOW KNEE TO TOES); [facility] CRUTCHES UNDERARM, OTHER THAN WOOD, ADJUSTABLE OR FIXED, PAIR, WITH PADS, TIPS AND HANDGRIPS [facility] CURRENT TOBACCO SMOKER (CAD, CAP, COPD, PV) (DM) 008 [facility] CURRENT TOBACCO SMOKER (CAD, CAP, COPD, PV) (DM) 008 [facility] Social Work Individual Outpatient Counseling 20-30 Minutes Social Work Individual Outpatient Counseling 20-30 Minutes 68714 009 SKIP HURT Training case with Eric Rg, Ph.D. [facility] Social Work Individual Outpatient Counseling 45-50 Minutes Social Work Individual Outpatient Counseling 45-50 Minutes 56541 009 SKIP HURT MSE COMPLETED. FORM 699R COMPLETED [facility] Ultrasound [place] [address] 00[address] JOSEPH SNOW [facility] Health And Behav A e mt Each 15 Min Initial A e ment Health And Behav Assessmt Each 15 Min Initial Assessment 13044 009 CHAYITO FRYE [facility] Ultrasound [place] [address] 009 RUDDY JIMENEZ F + IU GS with YS and FP [facility] Social Work Individual Outpatient Counseling 20-30 Minutes Social Work Individual Outpatient Counseling 20-30 Minutes 75746 009 YANETH PRADO [facility] Acoustic Reflex Decay Test Acoustic Reflex Decay Test 34447 009 TD PHELAN [facility] Acoustic Reflex Testing 009 TD PHELAN [facility] Tympanometry Tympanometry 82331 009 TD PHELAN [facility] Comprehensive Audiometry Comprehensive Audiometry 55589 009 TD PHELAN [facility] Psychiat Therapy Indiv Appr 45-50 Min W/ Med Eval Managemt Psychiat Therapy Indiv Appr 45-50 Min W/ Med Eval Managemt 16563 009 ALEYDA JACK [facility] Social Work Individual Outpatient Counseling 20-30 Minutes Social Work Individual Outpatient Counseling 20-30 Minutes 33668 009 MINH GUPTA [facility] Psychiat Therapy Indiv Appr 75-80 Min W/ Med Eval Managemt Psychiat Therapy Indiv Appr 75-80 Min W/ Med Eval Managemt 04791 009 MARCIE ALEYDA JOHN [facility] Psychiatric Evaluation Comprehensive Examination Psychiatric Evaluation Comprehensive Examination 32901 009 MINH UGPTA [facility] Psychiat Therapy Indiv Appr 45-50 Min W/ Med Eval Managemt Psychiat Therapy Indiv Appr 45-50 Min W/ Med Eval Managemt 64474 009 ALEYDA JACK [facility] Social Work Individual Outpatient Counseling 75-80 Minutes Social Work Individual Outpatient Counseling 75-80 Minutes 43127 009 ROGE MARTINEZ with multiple issues, needs with hx of no follow through. Multiple services, appts [facility] Psychiatric Evaluation Comprehensive Examination Psychiatric Evaluation Comprehensive Examination 68002 009 ALEXANDRA ANDREWS [facility] -Supervised Services Provision Of Educational Supplies -Supervised Services Provision Of Educational Supplies 41664 009 VJ VICENTE [facility] Physical Medicine - Group Physical Therapy Se ion Physical Medicine - Group Physical Therapy Session 03551 009 VJ VICENTE [facility] Patient Counseling Medical Management Five To Eight Patients Patient Counseling Medical Management Five To Eight Patients 38766 009 VJ VICENTE [facility] Psychiat Therapy Indiv Appr 75-80 Min W/ Med Eval Managemt Psychiat Therapy Indiv Appr 75-80 Min W/ Med Eval Managemt 78202 008 CHANDAN KUO [facility] Psychiatric Evaluation Review of Records and Reports Psychiatric Evaluation Review of Records and Reports 32262 008 TD ROBERTS [facility] Psychiat Therapy Indiv Appr 75-80 Min W/ Med Eval Managemt Psychiat Therapy Indiv Appr 75-80 Min W/ Med Eval Managemt 49729 008 TD ROBERTS [facility] Orthopedic Casting Short Leg Orthopedic Casting Short Leg 72168 008 ALHAJI BENTLEY [facility] Orthopedic Casting Short Leg Orthopedic Casting Short Leg 73003 008 ALHAJI BENTLEY [facility] Pulse Oximetry Pulse Oximetry 29326 008 ANU BARBOUR [facility] Intravenous Catheter Placement Intravenous Catheter Placement 29986 008 [place] WAGNER 20 JELCO LEFT AC [facility] Parenteral Fluids IV Infusion For Hydration 008 [place] 1 LITER NS [facility] DoD IV Infusion For Hydration Up To 1 Hour 008 ZHANE MEZA [facility] Hepatitis A Vaccine Adult Dosage (Intramuscular Use) Hepatitis A Vaccine Adult Dosage (Intramuscular Use) 22187 008 LEELEE RICH [facility] Vaccines Viral Polio, Inactivated (Salk) Vaccines Viral Polio, Inactivated (Salk) 19873 008 LEELEE RICH [facility] Immunization Administration Each Additional Vaccine 008 LEELEE RICH [facility] Meningococcal Polysaccharide Vaccine (Active) Meningococcal Polysaccharide Vaccine (Active) 39558 008 LEELEE RICH [facility] Td Vaccine Td Vaccine 97817 008 FERNY RICHA Will [facility] Immunization Administration One Vaccine Immunization Administration One Vaccine 13520 008 LEELEE RICH [facility] Visual Function Screening Visual Function Screening 05773 008 JOSE ARMANDO MANRIQUEZ Skin Test Anergy Tuberculin Intradermal Skin Test Anergy Tuberculin Intradermal 61129 008 LEELEE RICH [facility] Immunization Administration One Vaccine Immunization Administration One Vaccine 23942 008 LEELEE RICH [facility] Special Gama Services Analysis Of Computerized Data Special Services Analysis Of Computerized Data 11393 008 HANNAH DIETZ Ear mold/insert, not disposable, any type 008 HANNAH DIETZ Ear Protector Attenuation Measurements Ear Protector Attenuation Measurements 90608 008 HANNAH DIETZ Threshold Audiogram (Pure Tone) Threshold Audiogram (Pure Tone) 43757 008 HANNAH DIETZ Audiometry Group Testing Audiometry Group Testing [address]Supervised Group Educational Services 008 HANNAH DIETZ Ophthalmological New Patient Start Comprehensive Care Ophthalmological New Patient Start Comprehensive Care 12994 006 CASE CHAIDEZ Visual Daniel Test Intermediate Examination Visual Daniel Test Intermediate Examination 21470 006 CASE CHAIDEZ Determination Of Refractive State Determination Of Refractive State 51331 006 CASE CHAIDEZ Social Work Individual Outpatient Counseling 45-50 Minutes Social Work Individual Outpatient Counseling 45-50 Minutes 02265 07/03/2 006 PRINCESS NGUYEN [facility] Psychiatric Therapy Individual Approximately 45-50 Minutes Psychiatric Therapy Individual Approximately 45-50 Minutes 41317 006 JULISA PARDO [facility] Psychiatric Evaluation Comprehensive Examination Psychiatric Evaluation Comprehensive Examination 39977 006 PRINCESS NGUYEN [facility] Test Test 80574 005 MAGGI MEDINA [facility] Social History Combined list of available smoking, tobacco, and other social history from Department of Defense and Veterans Affairs facilities. Social History Type Response Date Comment [facility] e Tobacco smoking status NHIS VA-TOBACCO USE EVERY DAY CIGARETTES 08/19/2024 [facility] History of tobacco use VA-TOBACCO NEVER USED OTHER TYPE 08/19/2024 [facility] This section is an empty social history section. [facility] Plan of Care List of future care activities from Department of Veterans Affairs facilities. Additional future care activities may be listed in the Assessment and Plan section. Date/Time Care Activity Care Activity Detail Facili ty 04/02/2025 AMBULATORY - NONE AMBULATORY - NONE [facility]
--- OUTSIDE RECORDS SUMMARY | 2025-02-23 10:57 | XMS_ITS | Encounter Summary ---
Author Name [facility] Organization [facility] Address [address] [place] [address] Support Name Relationship Address Phone FUAD CHRISTINE Next of Kin Unknown CHRISTINE MERIDA Emergency Contact Unknown [phone] Insurance Providers: All historical and current Section [...] MEDIC AID Aug 02, 2015 MEDICAI D [id number] [id number] STACIE JENNIFER PATIENT [facility] (WNR) MEDICAID MEDIC AID [facility] (WNR) Dec 01, 2023 MEDICAI D [id number] STACIE JENNIFER PATIENT Selected Encounter This section includes the information on record at [place] for the Encounter. Date/Time Encounter Type Encounter Description Reason Provider Source Aug 20, 2024 11:15 AM GROUP [facility]CHOTHERAPY [facility] ICD-10-CM F11.90 Opioid use, unspecified, uncomplicated ORTBALS,MACRINA TA IHE Encounter Template Text not used by [place] Assessments - Encounter Diagnoses This section includes the primary and secondary diagnoses documented for the Encounter. Date/Time Primary/Secondary Diagnosis Diagnosis Name Provider Source Aug 20, 2024 01:37 PM PRIMARY Opioid use, unspecified, uncomplicated ORTBALS,ALMA DELIA [facility] Plan of Treatment: Future Appointments (+ 6 months) and Future Tests (+/- 45 days) The Plan of Treatment section includes future care activities for the patient from all [facility]. This section includes future appointments and future orders which are active, pending or scheduled. Future Appointments This section includes appointments that were scheduled to occur 6 months from the date of the Encounter, up to a maximum of 20 appointments. The data comes from all [facility]. Appointment Date/Time Appointment Type Appointme nt Facility Name Sep 10, 2024 12:30 PM AMBULATORY - PSYCHIATRY [facility] Sep 12, 2024 06:00 PM AMBULATORY - PSYCHIATRY [facility] Sep 17, 2024 06:00 PM AMBULATORY - PSYCHIATRY [facility] Sep 19, 2024 06:00 PM AMBULATORY - PSYCHIATRY [facility] Sep 26, 2024 06:00 PM AMBULATORY - PSYCHIATRY [facility] Oct 01, 2024 02:00 PM AMBULATORY - NONE [facility] Oct 09, 2024 03:00 PM AMBULATORY - MEDICINE [facility] Oct 16, 2024 01:00 PM AMBULATORY - PSYCHIATRY [facility] Oct 30, 2024 01:00 PM AMBULATORY - PSYCHIATRY [facility] Nov 27, 2024 01:00 PM AMBULATORY - PSYCHIATRY [facility] Dec 04, 2024 01:00 PM AMBULATORY - PSYCHIATRY [facility] Dec 11, 2024 01:00 PM AMBULATORY - PSYCHIATRY [facility] Dec 18, 2024 01:00 PM AMBULATORY - PSYCHIATRY [facility] Dec 25, 2024 01:00 PM AMBULATORY - PSYCHIATRY [facility] February 05, 2025 09:30 AM AMBULATORY - PSYCHIATRY [facility] Lab Results: +/- 30 days of the encounter This section includes the Chemistry and Hematology Lab Results on record with [place] for the patient. Radiology Reports and Pathology Reports are provided separately, in subsequent sections. Lab Results This section contains the Chemistry/Hematology Results that were resulted 30 days before or 30 daysafter the date of the Encounter. Date/Time Source Result Type Result - Unit Interpretation Reference Range Specimen Type Comment Sep 03, 2024 12:00 PM [facility] URINE DRUG SCREEN (STL) URINE Specimen Type: URINE Comment: The cut-off value for Fentanyl was laboratory developed and its performance characteristics confirmed by the [facility] laboratory thru method comparison with reference laboratory and medication chart review. The laboratory is regulated under CLIA as qualified to perform high-complexity testing. Fentanyl is used for clinical purposes in conjunction with other laboratory tests. Ordering Provider: DANIEL GOMEZ Report Released Date/Time: Sep 02, 2024 08:27 PM Reporting Lab: [facility] [facility] [address] Performing Lab: [facility] [address] ETHANOL <10.0 mg/dL 0-9 AMPHET/METHAMPHETAMINE Negative ng/mL COCAINE METABOLITES Negative ng/mL BENZODIAZEPINES (STL) Negative ng/mL CANNABINOIDS POSITIVE ng/mL METHADONE Negative ng/mL OPIATES Negative ng/mL CREATININE URINE/OTHERS 110.1 mg/dL H 47.0 -110.0 OXYCODONE ([id number]) Negative ng/mL BUPRENORPHINE (STL-PB-MA) Negative ng/mL FENTANYL (STL-PB) Negative ng/mL Aug 25, 2024 02:03 PM [facility] URINE DRUG SCREEN (STL) URINE Specimen Type: URINE Comment: The cut-off value for Fentanyl was laboratory developed and its performance characteristics confirmed by the [facility] laboratory thru method comparison with reference laboratory and medication chart review. The laboratory is regulated under CLIA as qualified to perform high-complexity testing. Fentanyl is used for clinical purposes in conjunction with other laboratory tests. Ordering Provider: DANIEL GOMEZ Report Released Date/Time: Aug 24, 2024 07:24 PM Reporting Lab: [facility] [address] [facility] [address] Performing Lab: [facility] [address] [facility] [address] ETHANOL Negative mg/dL 0-20 AMPHET/METHAMPHETAMINE Negative ng/mL COCAINE METABOLITES Negative ng/mL BENZODIAZEPINES (STL) Negative ng/mL CANNABINOIDS POSITIVE ng/mL METHADONE Negative ng/mL OPIATES Negative ng/mL CREATININE URINE/OTHERS 39.0 mg/dL L 47-11 0 OXYCODONE ([id number]) Negative ng/mL BUPRENORPHINE (STL-PB-MA) Negative ng/mL FENTANYL (STL-PB) Negative ng/mL Aug 20, 2024 07:13 AM [facility] URINALYSIS W/ CX REFLEX (L-PB) URINE Specim en Type: URINE No comment entered. Ordering Provider: DANIEL GOMEZ Report Released Date/Time: Aug 19, 2024 11:04 AM Reporting Lab: [facility] [place] [address] Performing Lab: [facility] [place] [address] URINE COLOR Yellow Yellow U.BILIRUBIN Negative mg/dL [...] GRAVITY 1.028 Aug 19, 2024 10:08 AM [facility] URINALYSIS (STL-PB) URINE Specimen Type: URIN E No comment entered. Ordering Provider: DANIEL GOMEZ Report Released Date/Time: Aug 16, 2024 03:45 PM Reporting Lab: [facility] [facility] [address] Performing Lab: [facility] [place] [address] URINE COLOR Yellow Yellow U.BILIRUBIN Negative mg/dL [...] 1.035 H Aug 19, 2024 10:08 AM [facility] TEST URINE (MA-STL) URINE Specimen Type: URINE No comment entered. Ordering Provider: DANIEL GOMEZ Report Released Date/Time: Aug 16, 2024 03:45 PM Reporting Lab: [facility] [address] Performing Lab: [facility] [facility] [address] Qualitative Test NEG NEGAT URBAN Aug 19, 2024 10:08 AM [facility] URINE DRUG SCREEN (STL) URINE Specimen Type: URINE Comment: The cut-off value for Fentanyl was laboratory developed and its performance characteristics confirmed by the [facility] laboratory thru method comparison with reference laboratory and medication chart review. The laboratory is regulated under CLIA as qualified to perform high-complexity testing. Fentanyl is used for clinical purposes in conjunction with other laboratory tests. Ordering Provider: DANIEL GOMEZ Report Released Date/Time: Aug 16, 2024 03:45 PM Reporting Lab: [facility] [address] Performing Lab: [facility] [facility] [address] ETHANOL Negative mg/dL 0-20 AMPHET/METHAMPHETAMINE Negative ng/mL COCAINE METABOLITES Negative ng/mL BENZODIAZEPINES (STL) Negative ng/mL CANNABINOIDS POSITIVE ng/mL METHADONE Negative ng/mL OPIATES POSITIVE ng/mL CREATININE URINE/OTHERS 266.1 mg/dL H 47.0 -110.0 OXYCODONE ([id number]) Negative ng/mL BUPRENORPHINE (STL-PB-MA) Negative ng/mL FENTANYL (STL-PB) Negative ng/mL Aug 19, 2024 10:00 AM [facility] CBC BLOOD Specimen Type: BLOOD No comment entered. Ordering Provider: DANIEL GOMEZ Report Released Date/Time: Aug 16, 2024 03:45 PM Reporting Lab: [facility] [facility] [address] Performing Lab: [facility] [facility] [address] WBC 12.7 10*3/uL H 3.6-11.2 RBC 4.19 [...] 0.00-0. 20 Aug 19, 2024 09:59 AM [facility] COMPREHENSIVE METABOLIC PANEL PLASMA Specimen Type: PLASMA Comment: No hemolysis noted. Ordering Provider: DANIEL GOMEZ Report Released Date/Time: Aug 16, 2024 03:45 PM Reporting Lab: [facility] [facility] [address] Performing Lab: [facility] [facility] [address] CREATININE 0.75 mg/dL 0.60-1.10 UREA NITROGEN 12.0 [...] 104.44 >60 Aug 19, 2024 09:59 AM [facility] PT/INR NEW (STL-MA) PLASMA Specimen Type: PLAS MA No comment entered. Ordering Provider: DANIEL GOMEZ Report Released Date/Time: Aug 16, 2024 03:45 PM Reporting Lab: [facility] [facility] [address] Performing Lab: [facility] [facility] [address] PROTIME 9.4 s 9.4-12.5 INR VALUE 0.8 {INR} Aug 19, 2024 09:59 AM [facility] ETHANOL SERUM/PLASMA (STL) PLASMA Specimen Typ e: PLASMA Comment: No hemolysis noted. Ordering Provider: DANIEL GOMEZ Report Released Date/Time: Aug 16, 2024 03:45 PM Reporting Lab: [facility] [address] Performing Lab: [facility] [facility] [address] ETHANOL SERUM/PLASMA (STL) <10.0 mg/dL 0 -10 Aug 19, 2024 09:59 AM [facility] GGT GAMMA-GT PLASMA Specimen Type: PLASM A No comment entered. Ordering Provider: DANIEL GOMEZ Report Released Date/Time: Aug 16, 2024 03:45 PM Reporting Lab: [facility] [address] [facility] [address] Performing Lab: [facility] [address] [facility] [address] GGT GAMMA-GT 14 [IU]/L 12-64 Aug 19, 2024 09:59 AM [facility] MAGNESIUM PLASMA Specimen Type: PLASM A Comment: No hemolysis noted. Ordering Provider: DANIEL GOMEZ Report Released Date/Time: Aug 16, 2024 03:45 PM Reporting Lab: [facility] [facility] [address] Performing Lab: [facility] [facility] [address] MAGNESIUM 2.1 mg/dL 1.6-2.6 Aug 19, 2024 09:59 AM [facility] CPK SERUM Specimen Type: SERUM No comment entered. Ordering Provider: DANIEL GOMEZ Report Released Date/Time: Aug 16, 2024 03:45 PM Reporting Lab: [facility] [facility] [address] Performing Lab: [facility] [facility] [address] CPK 37 U/L 29-168 Aug 19, 2024 09:59 AM [facility] HEP C Ab HCV Ab (STL) SERUM Specimen Type: SE RUM No comment entered. Ordering Provider: DANIEL GOMEZ Report Released Date/Time: Aug 16, 2024 03:45 PM Reporting Lab: [facility] [address] [facility] [address] Performing Lab: [facility] [address] [facility] [address] HEP C Ab HCV Ab (STL) Nonreactive Nonrea ctive Aug 19, 2024 09:59 AM [facility] HIV COMBO FOURTH GENERATION (STL) SERUM Speci men Type: SERUM No comment entered. Ordering Provider: DANIEL GOMEZ Report Released Date/Time: Aug 16, 2024 03:45 PM Reporting Lab: [facility] [address] [facility] [address] Performing Lab: [facility] [address] [facility] [address] HIV COMBO FOURTH GENERATION (STL) Nonreactive Nonreactive Vital Signs: All taken on the encounter date This section contains inpatient and outpatient Vital Signs collected on the date of the Encounter. Date/Time Temperature Pulse Blood Pressure Respiratory Rate SP02 Pain Height Weight Body Mass Index Source Aug 20, 2024 06:20 AM 98 105 117/80 18 97 [facility] Social History: Smoking Status (Most current) and Tobacco Use (All prior to encounter date) This section includes the most current, and the historical, smoking and tobacco- related health factors from the [place] facility where the Encounter took place. Current Smoking Status This section includes the most current smoking, or tobacco-related health factor, from the [place] facility where the Encounter took place. Date/Time Current Smoking Status Comment Nan ity Aug 19, 2024 10:33 AM VA-TOBACCO USE ALFONZO RY DAY CIGARETTES [facility] Tobacco Use History This section includes a history of the smoking, or tobacco-related health factors, that were collected on or before the date of the Encounter. The data comes from the [place] facility where the Encounter took place. Date/Time Smoking Status/Tobacco Use Comment F acility Aug 19, 2024 10:33 AM VA-TOBACCO SCREEN FOLLOW-UP [facility] Aug 19, 2024 10:33 AM VA-TOBACCO USE ADVICE [facility] Aug 19, 2024 10:33 AM VA-TOBACCO USE GARMENT EXAMINER NO [facility] Aug 19, 2024 10:33 AM VA-TOBACCO USE ALFONZO RY DAY CIGARETTES [facility] Aug 19, 2024 10:33 AM VA-TOBACCO USE MED YES [facility] Aug 19, 2024 10:33 AM VA-TOBACCO USE WI 30 MIN OF WAKEUP [facility] Encounter Notes: All associated encounter notes This section contains the clinical notes associated to the Encounter. Date/Time Encounter Note(s) Provider Source Aug 20, 2024 11:15 AM PSYCHOLOGY GROUP Alis VÁZQUEZ NOTE: LOCAL TITLE: PSYCHOLOGY GROUP NOTE [facility] STANDARD TITLE: PSYCHOLOGY GROUP COUNSELING NOTE DATE OF NOTE: AUG 20, 2024@11:15 ENTRY DATE: AUG 20, 2024@13:31:19 AUTHOR: ALMA DELIA STEVENS COSIGNER: URGENCY: STATUS: COMPLETED Date: 08/20/24 Group Title: Personality Factors and Substance Use Disorders Session Length: 50 minutes Number of Participants: 12 Group Time: 11:15 Therapy Format: psychoeducational group Treatment Goals for this Episode of Care: Consistent with the treatment plan listed for this (which was developed in collaboration with the upon admission to the program), the goal of this group is for the to gain increased understanding of the link between personality traits and substance use, and the implications on recovery. Intervention Type: Psychoeducational group addressing the role of personality in substance use and recovery. - The purpose and agenda for this session were shared with participants at the outset of the group. Participants were given an opportunity to ask questions before proceeding. -Discussed how personality traits are on a continuum, with the traits on either extreme being linked to more problems. Explained how generally traits have both pros and cons depending on the situational demands. Reviewed specific personality traits linked to substance use. Allowed time for veterans to reflect on their own personality traits and the role these traits play in their substance use. Discussed how to utilize this knowledge in developing more successful recovery plans. Provided opportunity for group participants to ask any questions and share personal experiences related to session material. Risk Assessment: did not verbalize any ideation of harm to self or others during this group. [place] appears sustainable at the present level of care. During their initial intake assessment with a [facility] master steam yacht and at the time of admission, the was informed of the voluntary nature of group participation, along with any potential benefits, risks, or complications, and consented. Please review documentation of the intake and admission for more information. Level of engagement: ( x) Active engagement. Shared personal reflections and/or helpful feedback ( ) Passive participation. Responded minimally and only when called upon. ( ) Non-participation. was quiet throughout group. ( ) <Free Text> Diagnosis: Opioid Use Disorder /es/ ALMA DELIA STEVENS Psychologist [address] [place] [address] / [facility] Signed: 08/20/2024 14:06 ORTBALS,ALMA DELIA [facility]
--- OUTSIDE RECORDS SUMMARY | 2025-02-23 10:57 | XMS_ITS | Encounter Summary ---
Author Name [facility] [facility] [place] [facility] [facility] [place] Address [address] [place] [address] Support Name Relationship Address Phone FUAD CHRISTINE Next of Kin Unknown CHRISTINE MERIDA Emergency Contact Unknown [phone] Insurance Providers: All historical and current Section [...] MEDIC AID Aug 02, 2015 MEDICAI D [id number] [phone] STACIE AYEJENNIFER PATIENT [facility] (WNR) MEDICAID MEDIC AID [facility] (WNR) Dec 01, 2023 MEDICAI D [id number] STACIE JENNIFER PATIENT Selected Encounter This section includes the information on record at CT for the Encounter. Date/Time Encounter Type Encounter Description Reason Provider Source Sep 03, 2024 06:15 PM SELF-MGMT EDUC/TRAIN 5-8 PT SUBSTANCE USE DISORDR GRP ICD-10-CM F11.90 Opioid use, unspecified, uncomplicated MUGOYA,ROSEMA RY K IHE Encounter Template Text not used by CT Assessments - Encounter Diagnoses This section includes the primary and secondary diagnoses documented for the Encounter. Date/Time Primary/Secondary Diagnosis Diagnosis Name Provider Source Sep 03, 2024 07:15 PM PRIMARY Opioid use, unspecified, uncomplicated MUGOYA,ROSEMAR Y K [facility] Sep 03, 2024 07:15 PM SECONDARY Cannabis dependence, uncomplicated MUGOYA,ROSEMAR Y K [facility] Plan of Treatment: Future Appointments (+ 6 months) and Future Tests (+/- 45 days) The Plan of Treatment section includes future care activities for the [facility] This section includes future appointments and future orders which are active, pending or scheduled. Future Appointments This section includes appointments that were scheduled to occur 6 months from the date of the Encounter, up to a maximum of 20 appointments. The data comes from all CT treatment facilities. Appointment Date/Time Appointment Type Appointme nt Facility Name Sep 10, 2024 12:30 PM AMBULATORY - PSYCHIATRY [facility] Sep 12, 2024 06:00 PM AMBULATORY - PSYCHIATRY [facility] Sep 17, 2024 06:00 PM AMBULATORY - PSYCHIATRY [facility] Sep 19, 2024 06:00 PM AMBULATORY - PSYCHIATRY [facility] Sep 26, 2024 06:00 PM AMBULATORY - PSYCHIATRY [facility] Oct 01, 2024 02:00 PM AMBULATORY - NONE [facility] Oct 09, 2024 03:00 PM AMBULATORY - MEDICINE [facility] Oct 16, 2024 01:00 PM AMBULATORY - PSYCHIATRY [facility] Oct 30, 2024 01:00 PM AMBULATORY - PSYCHIATRY [facility] Nov 27, 2024 01:00 PM AMBULATORY - PSYCHIATRY [facility] Dec 04, 2024 01:00 PM AMBULATORY - PSYCHIATRY [facility] Dec 11, 2024 01:00 PM AMBULATORY - PSYCHIATRY [facility] Dec 18, 2024 01:00 PM AMBULATORY - PSYCHIATRY [facility] Dec 25, 2024 01:00 PM AMBULATORY - PSYCHIATRY [facility] February 05, 2025 09:30 AM AMBULATORY - PSYCHIATRY [facility] Lab Results: +/- 30 days of the encounter This section includes the Chemistry and Hematology Lab Results on record with CT for the patient. Radiology Reports and Pathology Reports are provided separately, in subsequent sections. Lab Results This section contains the Chemistry/Hematology Results that were resulted 30 days before or 30 daysafter the date of the Encounter. Date/Time Source Result Type Result - Unit Interpretation Reference Range Specimen Type Comment Sep 03, 2024 12:00 PM [facility] URINE DRUG SCREEN (STL) URINE Specimen Type: URINE Comment: The cut-off value for Fentanyl was laboratory developed and its performance characteristics confirmed by the [facility] laboratory thru method comparison with reference laboratory and medication chart review. The laboratory is regulated under CLIA as qualified to perform high-complexity testing. Fentanyl is used for clinical purposes in conjunction with other laboratory tests. Ordering Provider: DANIEL GOMEZ Report Released Date/Time: Sep 02, 2024 08:27 PM Reporting Lab: [facility] [address] [facility] [phone] Performing Lab: [facility] [facility] [phone] ETHANOL <10.0 mg/dL 0-9 AMPHET/METHAMPHETAMINE Negative ng/mL COCAINE METABOLITES Negative ng/mL BENZODIAZEPINES (STL) Negative ng/mL CANNABINOIDS POSITIVE ng/mL METHADONE Negative ng/mL OPIATES Negative ng/mL CREATININE URINE/OTHERS 110.1 mg/dL H 47.0 -110.0 OXYCODONE ([id number]) Negative ng/mL BUPRENORPHINE (STL-PB-MA) Negative ng/mL FENTANYL (STL-PB) Negative ng/mL Aug 25, 2024 02:03 PM [facility] URINE DRUG SCREEN (STL) URINE Specimen Type: URINE Comment: The cut-off value for Fentanyl was laboratory developed and its performance characteristics confirmed by the [facility] laboratory thru method comparison with reference laboratory and medication chart review. The laboratory is regulated under CLIA as qualified to perform high-complexity testing. Fentanyl is used for clinical purposes in conjunction with other laboratory tests. Ordering Provider: DANIEL GOMEZ Report Released Date/Time: Aug 24, 2024 07:24 PM Reporting Lab: [facility] [address] [facility] [address] Performing Lab: [facility] [address] [facility] [address] ETHANOL Negative mg/dL 0-20 AMPHET/METHAMPHETAMINE Negative ng/mL COCAINE METABOLITES Negative ng/mL BENZODIAZEPINES (STL) Negative ng/mL CANNABINOIDS POSITIVE ng/mL METHADONE Negative ng/mL OPIATES Negative ng/mL CREATININE URINE/OTHERS 39.0 mg/dL L 47-11 0 OXYCODONE ([id number]) Negative ng/mL BUPRENORPHINE (STL-PB-MA) Negative ng/mL FENTANYL (STL-PB) Negative ng/mL Aug 20, 2024 07:13 AM [facility] URINALYSIS W/ CX REFLEX (STL-PB) URINE Specim en Type: URINE No comment entered. Ordering Provider: DANIEL GOMEZ Report Released Date/Time: Aug 19, 2024 11:04 AM Reporting Lab: [facility] [place] [address] Performing Lab: [facility] [place] [address] URINE COLOR Yellow Yellow U.BILIRUBIN Negative mg/dL [...] GRAVITY 1.028 Aug 19, 2024 10:08 AM [facility] URINALYSIS (STL-PB) URINE Specimen Type: URIN E No comment entered. Ordering Provider: DANIEL GOMEZ Report Released Date/Time: Aug 16, 2024 03:45 PM Reporting Lab: [facility] [place] [address] Performing Lab: [facility] [place] [address] URINE COLOR Yellow Yellow U.BILIRUBIN Negative mg/dL [...] 1.035 H Aug 19, 2024 10:08 AM [facility] TEST URINE (MA-STL) URINE Specimen Type: URINE No comment entered. Ordering Provider: DANIEL GOMEZ Report Released Date/Time: Aug 16, 2024 03:45 PM Reporting Lab: [facility] [address] Performing Lab: [facility] [address] [facility] [address] Qualitative Test NEG NEGAT URBAN Aug 19, 2024 10:08 AM [facility] URINE DRUG SCREEN (STL) URINE Specimen Type: URINE Comment: The cut-off value for Fentanyl was laboratory developed and its performance characteristics confirmed by the [facility] laboratory thru method comparison with reference laboratory and medication chart review. The laboratory is regulated under CLIA as qualified to perform high-complexity testing. Fentanyl is used for clinical purposes in conjunction with other laboratory tests. Ordering Provider: DANIEL GOMEZ Report Released Date/Time: Aug 16, 2024 03:45 PM Reporting Lab: [facility] [facility] [address] Performing Lab: [facility] [address] [facility] [address] ETHANOL Negative mg/dL 0-20 AMPHET/METHAMPHETAMINE Negative ng/mL COCAINE METABOLITES Negative ng/mL BENZODIAZEPINES (STL) Negative ng/mL CANNABINOIDS POSITIVE ng/mL METHADONE Negative ng/mL OPIATES POSITIVE ng/mL CREATININE URINE/OTHERS 266.1 mg/dL H 47.0 -110.0 OXYCODONE ([id number]) Negative ng/mL BUPRENORPHINE (STL-PB-MA) Negative ng/mL FENTANYL (STL-PB) Negative ng/mL Aug 19, 2024 10:00 AM [facility] CBC BLOOD Specimen Type: BLOOD No comment entered. Ordering Provider: DANIEL GOMEZ Report Released Date/Time: Aug 16, 2024 03:45 PM Reporting Lab: [facility] [facility] [address] Performing Lab: [facility] [facility] [address] WBC 12.7 10*3/uL H 3.6-11.2 RBC 4.19 [...] 0.00-0. 20 Aug 19, 2024 09:59 AM [facility] COMPREHENSIVE METABOLIC PANEL PLASMA Specimen Type: PLASMA Comment: No hemolysis noted. Ordering Provider: DANIEL GOMEZ Report Released Date/Time: Aug 16, 2024 03:45 PM Reporting Lab: [facility] [facility] [address] Performing Lab: [facility] [facility] [address] CREATININE 0.75 mg/dL 0.60-1.10 UREA NITROGEN 12.0 [...] 104.44 >60 Aug 19, 2024 09:59 AM [facility] PT/INR NEW (STL-MA) PLASMA Specimen Type: PLAS MA No comment entered. Ordering Provider: DANIEL GOMEZ Report Released Date/Time: Aug 16, 2024 03:45 PM Reporting Lab: [facility] [address] [place] [address] Performing Lab: [facility] [address] [place] [address] PROTIME 9.4 s 9.4-12.5 INR VALUE 0.8 {INR} Aug 19, 2024 09:59 AM [facility] ETHANOL SERUM/PLASMA (STL) PLASMA Specimen Typ e: PLASMA Comment: No hemolysis noted. Ordering Provider: DANIEL GOMEZ Report Released Date/Time: Aug 16, 2024 03:45 PM Reporting Lab: [facility] [place] [address] Performing Lab: [facility] [address] [place] [address] ETHANOL SERUM/PLASMA (STL) <10.0 mg/dL 0 -10 Aug 19, 2024 09:59 AM [facility] GGT GAMMA-GT PLASMA Specimen Type: PLASM A No comment entered. Ordering Provider: DANIEL GOMEZ Report Released Date/Time: Aug 16, 2024 03:45 PM Reporting Lab: [facility] [address] [facility] [address] Performing Lab: [facility] [address] [facility] [address] GGT GAMMA-GT 14 [IU]/L 12-64 Aug 19, 2024 09:59 AM [facility] MAGNESIUM PLASMA Specimen Type: PLASM A Comment: No hemolysis noted. Ordering Provider: DANIEL GOMEZ Report Released Date/Time: Aug 16, 2024 03:45 PM Reporting Lab: [facility] [address] [place] [phone] Performing Lab: [facility] [address] [facility] [address] MAGNESIUM 2.1 mg/dL 1.6-2.6 Aug 19, 2024 09:59 AM [facility] CPK SERUM Specimen Type: SERUM No comment entered. Ordering Provider: DANIEL GOMEZ Report Released Date/Time: Aug 16, 2024 03:45 PM Reporting Lab: [facility] [facility] [address] Performing Lab: [facility] [facility] [address] CPK 37 U/L 29-168 Aug 19, 2024 09:59 AM [facility] HEP C Ab HCV Ab (STL) SERUM Specimen Type: SE RUM No comment entered. Ordering Provider: DANIEL GOMEZ Report Released Date/Time: Aug 16, 2024 03:45 PM Reporting Lab: [facility] [address] [facility] [address] Performing Lab: [address] [address] HEP C Ab HCV Ab (STL) Nonreactive Nonrea ctive Aug 19, 2024 09:[address] [facility] HIV COMBO FOURTH GENERATION (STL) SERUM Speci men Type: SERUM No comment entered. Ordering Provider: DANIEL GOMEZ Report Released Date/Time: Aug 16, 2024 03:45 PM Reporting Lab: [facility] [address] [facility] [address] Performing Lab: [facility] [address] [facility] [address] HIV COMBO FOURTH GENERATION (STL) Nonreactive Nonreactive Encounter Notes: All associated encounter notes This section contains the clinical notes associated to the Encounter. Date/Time Encounter Note(s) Provider Source Sep 03, 2024 06:15 PM PSYCHIATRY GROUP C GURPREET NOTE: LOCAL TITLE: [facility]YCHI[facility]RY GROUP NOTE ST STANDARD TITLE: PSYCHIATRY GROUP COUNSELING NOTE DATE OF NOTE: SEP 03, 2024@18:15 ENTRY DATE: SEP 03, 2024@19:02:31 AUTHOR: JED MONTERO EXP COSIGNER: URGENCY: STATUS: COMPLETED Discipline: Nursing Group Time: Group Topics: Ethel Talk; Dont let the bear catch you. Group Content: This was one of the ([place]) 21 who listened to a ETHEL talk about addiction: Dont let the bear catch you by Eric Jackson. Group Goals: The goal of this group was to help veterans identify and understand triggers and avoidance. Also provided suggestions and applicable strategies for overcoming addition, especially through focusing on progress not perfection. Patient Response: Actively Engaged Number of Participants in Group: // JED Alfaro. OLIVER MONTERO,RN Registered Nurse, [address] Signed: 09/03/2024 19:20 JED MONTERO [facility]
--- OUTSIDE RECORDS SUMMARY | 2025-02-23 10:57 | XMS_ITS | Encounter Summary ---
Author Name [facility] [place] [facility] [place] Address [address] [place] [address] Support Name Relationship Address Phone FUAD CHRISTINE Next of Kin Unknown CHRISTINE MERIDA Emergency Contact Unknown [phone] Insurance Providers: All historical and current Section [...] MEDIC AID Aug 02, 2015 MEDICAI D [id number] [phone] JENNIFER QUINONES PATIENT [facility] (WNR) MEDICAID MEDIC AID [facility] (WNR) Dec 01, 2023 MEDICAI D [id number] JENNIFER QUINONES PATIENT Selected Encounter This section includes the information on record at [place] for the Encounter. Date/Time Encounter Type Encounter Description Reason Provider Source Sep 10, 2024 12:30 PM OFFICE O/P EST HI [facility] - IND ICD-10-CM F43.12 Post-traumatic stress disorder, chronic RITA MOFFETT Peggy Encounter Template Text not used by [place] Assessments - Encounter Diagnoses This section includes the primary and secondary diagnoses documented for the Encounter. Date/Time Primary/Secondary Diagnosis Diagnosis Name Provider Source Sep 11, 2024 08:08 AM PRIMARY Post-traumatic stress disorder, chronic RITA MOFFETT [facility] Sep 11, 2024 08:08 AM SECONDARY Alcohol abuse, uncomplicated RITA MOFFETT [facility] Sep 11, 2024 08:08 AM SECONDARY Borderline personality disorder RITA MOFFETT [facility] Sep 11, 2024 08:08 AM SECONDARY Cannabis abuse, uncomplicated RITA MOFFETT [facility] Plan of Treatment: Future Appointments (+ 6 months) and Future Tests (+/- 45 days) The Plan of Treatment section includes future care activities for the [place] [facility] [place] [facility]. This section includes future appointments and future orders which are active, pending or scheduled. Future Appointments This section includes appointments that were scheduled to occur 6 months from the date of the Encounter, up to a maximum of 20 appointments. The data comes from all [facility]. Appointment Date/Time Appointment Type Appointme nt Facility Name Sep 12, 2024 06:00 PM AMBULATORY - PSYCHIATRY [facility] Sep 17, 2024 06:00 PM AMBULATORY - PSYCHIATRY [facility] Sep 19, 2024 06:00 PM AMBULATORY - PSYCHIATRY [facility] Sep 26, 2024 06:00 PM AMBULATORY - PSYCHIATRY [facility] Oct 01, 2024 02:00 PM AMBULATORY - NONE [facility] Oct 09, 2024 03:00 PM AMBULATORY - MEDICINE [facility] Oct 16, 2024 01:00 PM AMBULATORY - PSYCHIATRY [facility] Oct 30, 2024 01:00 PM AMBULATORY - PSYCHIATRY [facility] Nov 27, 2024 01:00 PM AMBULATORY - PSYCHIATRY [facility] Dec 04, 2024 01:00 PM AMBULATORY - PSYCHIATRY [facility] Dec 11, 2024 01:00 PM AMBULATORY - PSYCHIATRY [facility] Dec 18, 2024 01:00 PM AMBULATORY - PSYCHIATRY [facility] Dec 25, 2024 01:00 PM AMBULATORY - PSYCHIATRY [facility] February 05, 2025 09:30 AM AMBULATORY - PSYCHIATRY [facility] Lab Results: +/- 30 days of the encounter This section includes the Chemistry and Hematology Lab Results on record with [place] for the patient. Radiology Reports and Pathology Reports are provided separately, in subsequent sections. Lab Results This section contains the Chemistry/Hematology Results that were resulted 30 days before or 30 daysafter the date of the Encounter. Date/Time Source Result Type Result - Unit Interpretation Reference Range Specimen Type Comment Sep 03, 2024 12:00 PM [facility] URINE DRUG SCREEN (STL) URINE Specimen Type: URINE Comment: The cut-off value for Fentanyl was laboratory developed and its performance characteristics confirmed by the [facility] laboratory thru method comparison with reference laboratory and medication chart review. The laboratory is regulated under CLIA as qualified to perform high-complexity testing. Fentanyl is used for clinical purposes in conjunction with other laboratory tests. Ordering Provider: DANIEL GOMEZ Report Released Date/Time: Sep 02, 2024 08:27 PM Reporting Lab: [facility] [facility] [phone] Performing Lab: [facility] [phone] ETHANOL <10.0 mg/dL 0-9 AMPHET/METHAMPHETAMINE Negative ng/mL COCAINE METABOLITES Negative ng/mL BENZODIAZEPINES (STL) Negative ng/mL CANNABINOIDS POSITIVE ng/mL METHADONE Negative ng/mL OPIATES Negative ng/mL CREATININE URINE/OTHERS 110.1 mg/dL H 47.0 -110.0 OXYCODONE (PLGXM-PGG-NP) Negative ng/mL BUPRENORPHINE (STL-PB-MA) Negative ng/mL FENTANYL (STL-PB) Negative ng/mL Aug 25, 2024 02:03 PM [facility] URINE DRUG SCREEN (STL) URINE Specimen Type: URINE Comment: The cut-off value for Fentanyl was laboratory developed and its performance characteristics confirmed by the [facility] laboratory thru method comparison with reference laboratory and medication chart review. The laboratory is regulated under CLIA as qualified to perform high-complexity testing. Fentanyl is used for clinical purposes in conjunction with other laboratory tests. Ordering Provider: DANIEL GOMEZ Report Released Date/Time: Aug 24, 2024 07:24 PM Reporting Lab: [facility] [address] [place] [id number] Performing Lab: [facility] [address] [facility] [address] ETHANOL Negative mg/dL 0-20 AMPHET/METHAMPHETAMINE Negative ng/mL COCAINE METABOLITES Negative ng/mL BENZODIAZEPINES (STL) Negative ng/mL CANNABINOIDS POSITIVE ng/mL METHADONE Negative ng/mL OPIATES Negative ng/mL CREATININE URINE/OTHERS 39.0 mg/dL L 47-11 0 OXYCODONE (GQNSM-ORC-NG) Negative ng/mL BUPRENORPHINE (STL-PB-MA) Negative ng/mL FENTANYL (STL-PB) Negative ng/mL Aug 20, 2024 07:13 AM [facility] URINALYSIS W/ CX REFLEX (STL-PB) URINE Specim en Type: URINE No comment entered. Ordering Provider: DANIEL GOMEZ Report Released Date/Time: Aug 19, 2024 11:04 AM Reporting Lab: [facility] [address] Performing Lab: [facility] [place] [phone] URINE COLOR Yellow Yellow U.BILIRUBIN Negative mg/dL [...] GRAVITY 1.028 Aug 19, 2024 10:08 AM [facility] URINALYSIS (STL-PB) URINE Specimen Type: URIN E No comment entered. Ordering Provider: DANIEL GOMEZ Report Released Date/Time: Aug 16, 2024 03:45 PM Reporting Lab: [facility] [phone] Performing Lab: [facility] [place] [address] URINE COLOR Yellow Yellow U.BILIRUBIN Negative mg/dL [...] 1.035 H Aug 19, 2024 10:08 AM [facility] TEST URINE (MA-STL) URINE Specimen Type: URINE No comment entered. Ordering Provider: DANIEL GOMEZ Report Released Date/Time: Aug 16, 2024 03:45 PM Reporting Lab: [facility] [place] [address] Performing Lab: [facility] [place] [address] Qualitative Test NEG NEGAT URBAN Aug 19, 2024 10:08 AM [facility] URINE DRUG SCREEN (STL) URINE Specimen Type: URINE Comment: The cut-off value for Fentanyl was laboratory developed and its performance characteristics confirmed by the [facility] laboratory thru method comparison with reference laboratory and medication chart review. The laboratory is regulated under CLIA as qualified to perform high-complexity testing. Fentanyl is used for clinical purposes in conjunction with other laboratory tests. Ordering Provider: DANIEL GOMEZ Report Released Date/Time: Aug 16, 2024 03:45 PM Reporting Lab: [facility] [place] [address] Performing Lab: [facility] [place] [address] ETHANOL Negative mg/dL 0-20 AMPHET/METHAMPHETAMINE Negative ng/mL COCAINE METABOLITES Negative ng/mL BENZODIAZEPINES (STL) Negative ng/mL CANNABINOIDS POSITIVE ng/mL METHADONE Negative ng/mL OPIATES POSITIVE ng/mL CREATININE URINE/OTHERS 266.1 mg/dL H 47.0 -110.0 OXYCODONE (SQSWX-LLN-EV) Negative ng/mL BUPRENORPHINE (STL-PB-MA) Negative ng/mL FENTANYL (STL-PB) Negative ng/mL Aug 19, 2024 10:00 AM [facility] CBC BLOOD Specimen Type: BLOOD No comment entered. Ordering Provider: DANIEL GOMEZ Report Released Date/Time: Aug 16, 2024 03:45 PM Reporting Lab: [facility] [phone] Performing Lab: [facility] [facility] [phone] WBC 12.7 10*3/uL H 3.6-11.2 RBC 4.19 [...] 0.00-0. 20 Aug 19, 2024 09:59 AM [facility] COMPREHENSIVE METABOLIC PANEL PLASMA Specimen Type: PLASMA Comment: No hemolysis noted. Ordering Provider: DANIEL GOMEZ Report Released Date/Time: Aug 16, 2024 03:45 PM Reporting Lab: [facility] [place] [address] Performing Lab: [facility] [place] [address] CREATININE 0.75 mg/dL 0.60-1.10 UREA NITROGEN 12.0 [...] 104.44 >60 Aug 19, 2024 09:59 AM [facility] PT/INR NEW (STL-MA) PLASMA Specimen Type: PLAS MA No comment entered. Ordering Provider: DANIEL GOMEZ Report Released Date/Time: Aug 16, 2024 03:45 PM Reporting Lab: [facility] [place] [address] Performing Lab: [facility] [place] [address] PROTIME 9.4 s 9.4-12.5 INR VALUE 0.8 {INR} Aug 19, 2024 09:59 AM [facility] ETHANOL SERUM/PLASMA (STL) PLASMA Specimen Typ e: PLASMA Comment: No hemolysis noted. Ordering Provider: DANIEL GOMEZ Report Released Date/Time: Aug 16, 2024 03:45 PM Reporting Lab: [facility] [place] [address] Performing Lab: [facility] [facility] [phone] ETHANOL SERUM/PLASMA (STL) <10.0 mg/dL 0 -10 Aug 19, 2024 09:59 AM [facility] GGT GAMMA-GT PLASMA Specimen Type: PLASM A No comment entered. Ordering Provider: DANIEL GOMEZ Report Released Date/Time: Aug 16, 2024 03:45 PM Reporting Lab: [facility] [address] [facility] [phone] Performing Lab: [facility] [address] [facility] [address] GGT GAMMA-GT 14 [IU]/L 12-64 Aug 19, 2024 09:59 AM [facility] MAGNESIUM PLASMA Specimen Type: PLASM A Comment: No hemolysis noted. Ordering Provider: DANIEL GOMEZ Report Released Date/Time: Aug 16, 2024 03:45 PM Reporting Lab: [facility] [facility] [address] Performing Lab: [facility] [facility] [phone] MAGNESIUM 2.1 mg/dL 1.6-2.6 Aug 19, 2024 09:59 AM [facility] CPK SERUM Specimen Type: SERUM No comment entered. Ordering Provider: DANIEL GOMEZ Report Released Date/Time: Aug 16, 2024 03:45 PM Reporting Lab: [facility] [facility] [address] Performing Lab: [facility] [facility] [phone] CPK 37 U/L 29-168 Aug 19, 2024 09:59 AM [facility] HEP C Ab HCV Ab (STL) SERUM Specimen Type: SE RUM No comment entered. Ordering Provider: DANIEL GOMEZ Report Released Date/Time: Aug 16, 2024 03:45 PM Reporting Lab: [facility] [address] [facility] [address] Performing Lab: [facility] [address] [facility] [phone] HEP C Ab HCV Ab (STL) Nonreactive Nonrea ctive Aug 19, 2024 09:59 AM [facility] HIV COMBO FOURTH GENERATION (STL) SERUM Speci men Type: SERUM No comment entered. Ordering Provider: DANIEL GOMEZ Report Released Date/Time: Aug 16, 2024 03:45 PM Reporting Lab: [facility] [address] [facility] [address] Performing Lab: [facility] [address] [facility] [address] HIV COMBO FOURTH GENERATION (STL) Nonreactive Nonreactive Social History: Smoking Status (Most current) and Tobacco Use (All prior to encounter date) This section includes the most current, and the historical, smoking and tobacco- related health factors from the [place] facility where the Encounter took place. Current Smoking Status This section includes the most current smoking, or tobacco-related health factor, from the [place] facility where the Encounter took place. Date/Time Current Smoking Status Comment Nan ity Aug 19, 2024 10:33 AM VA-TOBACCO USE ALFONZO RY DAY CIGARETTES [facility] Tobacco Use History This section includes a history of the smoking, or tobacco-related health factors, that were collected on or before the date of the Encounter. The data comes from the [place] facility where the Encounter took place. 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 Date/Time Encounter Note(s) Provider Source Sep 10, 2024 12:33 PM PSYCHIATRY NOTE: LOCAL TITLE: PSYCHIATRY [facility] STANDARD TITLE: PSYCHIATRY NOTE DATE OF NOTE: SEP 10, 2024@12:33 ENTRY DATE: SEP 10, 2024@12:33:58 AUTHOR: SHARONA MOFFETT COSIGNER: URGENCY: STATUS: COMPLETED THIS WAS A [facility] APPOINTMENT and the below were completed prior [...] all participants have joined. PSYCHIATRIC FOLLOW-UP NOTE [facility] Name: JENNIFER QUINONES Age: 39 Gender: FEMALE Visit Date: SEP 10, 2024 Time:12:30 - 1:00 PM REASON FOR CONSULTATION: follow up. Interim hx Patient with PTSD, ADHD, borderline personality disorder, alcohol use disorder in remission. presents to clinic to follow up after completion of from civilian provider. Patient reports longstanding history of mental health issues including 4 inpatient psychiatric hospitalizations and suicidal ideation but no attempts. Multiple psychotropic medications including current citalopram and Strattera.. Previously was on Lamictal, Depakote, Seroquel, Wellbutrin, prazosin, mirtazapine, Concerta, Risperdal. States she is been on meds since fourth grade. self harm - cut 4 mo ago, brief si when in 21 day program - states able to cope. no active intention or plan. feels with treatment and meds better able to cope with thoughts. Patient states that she is doing better- pleased that she got help from [facility]. Brain feels clear- reduced cognitive fogginess. Hopeful to engage in aftercare- likes going to meetings, being involved in sabianist. tell myself its ok . States she is off cannabis - 21 days sober, no nicotine. no alcohol use. no longer coughing anymore. God is real: . no concerns with hormones. no cramping or sx. appetite: no concerns sleep: no concerns. improved She states mood sx seem top cycle [...] addictions/behaviors that is difficult to stop or engages in for onger than intended (e.g. gambling.etc):denies History of substance related medical problems: no hx of delerium trememns. or complication from alcohol withdrawal PERTINENT MEDICAL/SURGICAL HISTORY: ===== Primary Care Provider: History of Illness/Medications: psoriasis. hx of vertigo. cholecystectomy t& a removal History of Head Injuries:denies De Borgia is female of childbearing age Reproductive History: 3 children. De Borgia is Not : denies Does not use [...] DEVELOPMENTAL HISTORY: ====== Born and raised in [place], lives at home with 3 children. has full custody of oldest daughter. X 2 . 2011 , 18 yo someone on the internet. [...] in a safe work place. Identifies as Faith - nondenomination. Goes to [employer]. For past 5 years. support: denies finds support in her jn: MEDICAL HISTORY: 1) Cannabis abuse 2) Cannabis dependence, continuous 3) Admits alcohol use 4) Cocaine user 5) Opioid dependence 6) Tobacco use 7) Insomnia 8) Anxiety ALLERGIES/ADR: BACTRIM, FLUCONAZOLE, CONCERTA, RISPERDAL, LAMICTAL OUTPATIENT MEDICATIONS: Active Outpatient Medications (including Supplies): Active Outpatient Medications Status 1) ACETAMINOPHEN 500MG TAB TAKE ONE TABLET BY MOUTH FOUR ACTIVE TIMES A DAY NEEDED FOR PAIN CAUTION: DO NOT EXCEED 4000MG PER DAY ACETAMINOPHEN (APAP) FROM ALL MEDS. 2) ALBUTEROL 90MCG (CFC-F) 200D ORAL INHL INHALE 2 PUFFS ACTIVE BY ORAL INHALATION FOUR TIMES A DAY NEEDED FOR COPD SHAKE WELL. RINSE MOUTHPIECE FREQUENTLY TO PREVENT CLOGGING. 3) ATOMOXETINE 40MG CAP TAKE ONE CAPSULE BY MOUTH EVERY ACTIVE MORNING 4) BUPROPION HCL 300MG 24HR SA TAB TAKE ONE TABLET BY ACTIVE MOUTH ONCE A DAY FOR DEPRESSION SWALLOW WHOLE - DO NOT CRUSH OR CHEW. 5) BUSPIRONE HCL 15MG TAB TAKE ONE-HALF TABLET BY MOUTH ACTIVE THREE TIMES A DAY FOR ANXIETY DO NOT TAKE WITH GRAPEFRUIT JUICE. 6) ESCITALOPRAM OXALATE 20MG TAB TAKE ONE AND ONE-HALF ACTIVE TABLETS BY MOUTH EVERY MORNING 7) IBUPROFEN 800MG TAB TAKE ONE TABLET BY MOUTH THREE ACTIVE TIMES A DAY NEEDED FOR PAIN TAKE WITH FOOD. 8) LORATADINE 10MG TAB TAKE ONE TABLET BY MOUTH ONCE A ACTIVE DAY NEEDED FOR ALLERGIC RHINITIS ON EMPTY STOMACH 9) MED ORGANIZER 7DAY/4 SLOT APEX#05877 USE PILLBOX ACTIVE ONE-TIME FOR MEDICATION STORAGE/PLANNING 10) MELATONIN 3MG CAP/TAB TAKE ONE CAP/TAB BY MOUTH AT ACTIVE BEDTIME NEEDED FOR SLEEP 11) NALOXONE HCL 4MG/SPRAY SOLN NASAL SPRAY USE 1 SPRAY ACTIVE (4MG) INTO ONE NOSTRIL ONLY ONE-TIME FOR OPIOID OVERDOSE DO NOT PRIME NASAL SPRAY. SPRAY ONE DOSE IN ONE NOSTRIL, GIVE ADDITIONAL DOSE IF PATIENT DOES NOT START BREATHING WITHIN 2-3 MINUTES OR STOPS BREATHING AGAIN. CALL 911. IF USED, NOTIFY PROVIDER. 12) NICOTINE 14MG/24HR PATCH APPLY 1 PATCH TO SKIN SITE ACTIVE EVERY MORNING REMOVE OLD PATCH BEFORE APPLYING NEW ONE. ROTATE SITES. DO NOT SMOKE WHILE WEARING PATCH. 13) NICOTINE 21MG/24HR PATCH APPLY 1 PATCH TO SKIN SITE ACTIVE EVERY MORNING REMOVE OLD PATCH BEFORE APPLYING NEW ONE. ROTATE SITES. DO NOT SMOKE WHILE WEARING PATCH. 14) NICOTINE 4MG GUM CHEW 1 PIECE OF GUM BY MOUTH EVERY 4 ACTIVE HOURS NEEDED CHEW GUM UNTIL TINGLING SENSATION, THEN PARK THE GUM BETWEEN CHEEK AND GUM AREA. REPEAT (RE-CHEW) WHEN TINGLING STOPS. 15) NICOTINE 7MG/24HR PATCH APPLY 1 PATCH TO SKIN SITE ACTIVE EVERY MORNING REMOVE OLD PATCH BEFORE APPLYING NEW ONE. ROTATE SITES. DO NOT SMOKE WHILE WEARING PATCH. 16) OLANZAPINE 10MG TAB TAKE ONE-HALF TABLET BY MOUTH AT ACTIVE BEDTIME FOR DEPRESSION 17) TABLET CUTTER USE TABLET CUTTER ONE-TIME NEEDED ACTIVE FOR TABLET CUTTING 18) TRAZODONE HCL 100MG TAB TAKE ONE AND ONE-HALF TABLETS ACTIVE BY MOUTH AT BEDTIME FOR INSOMNIA 19) TRIAMCINOLONE ACETONIDE 0.1% CREAM APPLY LIGHTLY TO ACTIVE AFFECTED AREA(S) TWICE A DAY FOR PSORIASIS (EXTERNAL USE ONLY) Active Non-VA Medications Status 1) Non-VA TRIAMCINOLONE OINT,TOP .025 TO AFFECTED ACTIVE AREA(S) ONCE A DAY 20 Total Medications No medications found. ACTIVE OUTPATIENT INJECTIONS AND INPATIENT MEDICATIONS No medications found. PSYCHIATRIC SPECIALTY EXAMINATION: ===== VITALS Pulse: 101 (08/31/2024 07:28) Temperature: 98.1 F [36.7 C] (08/22/2024 06:56) Blood Pressure: 116/77 (08/31/2024 07:28) Pain: 0 (08/22/2024 06:56) Weight: MSE: *Appearance: appears approximately stated age, wearing [...] AO to name/place/situation PERTINENT LAB FINDINGS: CBC: WBC 12.7 H 10*3/uL 08/19/2024 10:00 RBC 4.19 10*6/uL 08/19/2024 10:00 HGB 12.7 g/dL 08/19/2024 10:00 HCT 37.7 % 08/19/2024 10:00 MCV 90.0 fL 08/19/2024 10:00 MCH 30.3 pg 08/19/2024 10:00 MCHC 33.7 g/dL 08/19/2024 10:00 RDW 12.0 % 08/19/2024 10:00 PLT 418 H 10*3/uL 08/19/2024 10:00 MPV 10.2 fL 08/19/2024 10:00 NEUTROPHILS, AUTO % 63 % 08/19/2024 10:00 LYMPHOCYTES, AUTO % 21 % 08/19/2024 10:00 MONOCYTES, AUTO % 7 % 08/19/2024 10:00 EOSINOPHILS, AUTO % 7 % 08/19/2024 10:00 BASOPHILS, AUTO % 1 % 08/19/2024 10:00 NEUTROPHILS, ABSOLUTE 8.03 H 10*3/uL 08/19/2024 10:00 LYMPHOCYTES, ABSOLUTE 2.69 10*3/uL 08/19/2024 10:00 MONOCYTES, ABSOLUTE 0.90 H 10*3/uL 08/19/2024 10:00 EOSINOPHILS, ABSOLUTE 0.88 H 10*3/uL 08/19/2024 10:00 BASOPHILS, ABSOLUTE 0.09 10*3/uL 08/19/2024 10:00 CHEM 7: SODIUM 139 mEq/L 08/19/2024 09:59 POTASSIUM 4.2 mEq/L 08/19/2024 09:59 CHLORIDE 108 H mEq/L 08/19/2024 09:59 UREA NITROGEN 12.0 mg/dL 08/19/2024 09:59 CREATININE 0.75 mg/dL 08/19/2024 09:59 CALCIUM 8.8 mg/dL 08/19/2024 09:59 CARBON DIOXIDE 23 mEq/L 08/19/2024 09:59 GLUCOSE 99 mg/dL 08/19/2024 09:59 EGFR (CKD-EPI 2020) 104.44 08/19/2024 09:59 HEPATIC PANEL: No data available SGPT: 25 U/L (08/19/24 09:59) SGOT:19 U/L (08/19/24 09:59) TRIGLYCERIDES:____ CHOLESTEROL: No CHOLESTEROL EO data found [...] Multiple psychotropic medications including current citalopram and Strattera. Previously was on Lamictal, Depakote, Seroquel, Wellbutrin, [...] hx aud, NUD, cud. ADHD combined subtype, - increase Buspar 15 mg TID for anxiety. - cont Olanzapine 5 mg qhs for mood/anxiety/sleep. - Continue Escitalopram 30 mg q am - Continue Trazodone 150 mg qhs for sleep; continue Melatonin 3 mg qhs PRN for sleep. - increase Atomoxetine 60 mg q am for ADHD. - cont Bupropion XL to 300mg daily. REFERRALS: doing aftercare , will do mbsr, in future consider dbt vs trp SUPPORTIVE PSYCHOTHERAPY: 16 min INSTRUCTIONS GIVEN TO [...] clinic or Emergency Room as appropriate ( [facility] [phone] ext. [phone]) To schedule follow up appt: call [phone] and press 2 in the menu. Clerks [...] errors. /sanjeev/ Zamzam Moffett M.D. Staff Physician [facility] Signed: 09/11/2024 08:08 SHARONA MOFFETT [facility]
--- OUTSIDE RECORDS SUMMARY | 2025-02-23 10:57 | XMS_ITS ---
Author Name [facility] [place] Organization [facility] [place] Address [address] [place] [id number] Support Name Relationship Address Phone FUAD CHRISTINE Next of Kin Unknown CHRISTINE MERIDA Emergency Contact Unknown [phone] Insurance Providers: All historical and current Section [...] MEDIC AID Aug 02, 2015 MEDICAI D [id number] [phone] STACIE AYEJENNIFER PATIENT [facility] (WNR) MEDICAID MEDIC AID [facility] (WNR) Dec 01, 2023 MEDICAI D [id number] STACIE JENNIFER PATIENT Selected Encounter This section includes the information on record at [place] for the Encounter. 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 Date/Time Primary/Secondary Diagnosis Diagnosis Name Provider Source Sep 08, 2024 10:24 AM PRIMARY Spiritual or synagogue counseling ALBERTO PALOMO [facility] Plan of Treatment: Future Appointments (+ 6 months) and Future Tests (+/- 45 days) The Plan of Treatment section includes future care activities for the patient from all [place] treatmentfauc [facility]. This section includes future appointments and future orders which are active, pending or scheduled. Future Appointments This section includes appointments that were scheduled to occur 6 months from the date of the Encounter, up to a maximum of 20 appointments. The data comes from all [place] treatment facilities. Appointment Date/Time Appointment Type Appointme nt Facility Name Sep 10, 2024 12:30 PM AMBULATORY - PSY[facility]IATRY [facility] Sep 12, 2024 06:00 PM AMBULATORY - PS[facility]CH[facility]ATRY [facility] Sep 17, 2024 06:00 PM AMBULATORY - PSYCHIATRY [facility] Sep 19, 2024 06:00 PM AMBULATORY - PSYCHIATRY [facility] Sep 26, 2024 06:00 PM AMBULATORY - PSYCHIATRY [facility] Oct 01, 2024 02:00 PM AMBULATORY - NONE [facility] Oct 09, 2024 03:00 PM AMBULATORY - MEDICINE [facility] Oct 16, 2024 01:00 PM AMBULATORY - PSYCHIATRY [facility] Oct 30, 2024 01:00 PM AMBULATORY - PSYCHIATRY [facility] Nov 27, 2024 01:00 PM AMBULATORY - PSYCHIATRY [facility] Dec 04, 2024 01:00 PM AMBULATORY - PSYCHIATRY [facility] Dec 11, 2024 01:00 PM AMBULATORY - PSYCHIATRY [facility] Dec 18, 2024 01:00 PM AMBULATORY - PSYCHIATRY [facility] Dec 25, 2024 01:00 PM AMBULATORY - PSYCHIATRY [facility] February 05, 2025 09:30 AM AMBULATORY - PSYCHIATRY [facility] Lab Results: +/- 30 days of the encounter This section includes the Chemistry and Hematology Lab Results on record with [place] for the patient. Radiology Reports and Pathology Reports are provided separately, in subsequent sections. Lab Results This section contains the Chemistry/Hematology Results that were resulted 30 days before or 30 daysafter the date of the Encounter. Date/Time Source Result Type Result - Unit Interpretation Reference Range Specimen Type Comment Sep 03, 2024 12:00 PM [facility] URINE DRUG SCREEN (STL) URINE Specimen Type: URINE Comment: The cut-off value for Fentanyl was laboratory developed and its performance characteristics confirmed by the [facility] laboratory thru method comparison with reference laboratory and medication chart review. The laboratory is regulated under CLIA as qualified to perform high-complexity testing. Fentanyl is used for clinical purposes in conjunction with other laboratory tests. Ordering Provider: DANIEL GOMEZ Report Released Date/Time: Sep 02, 2024 08:27 PM Reporting Lab: [facility] [facility] [phone] Performing Lab: [facility] [facility] [phone] ETHANOL <10.0 mg/dL 0-9 AMPHET/METHAMPHETAMINE Negative ng/mL COCAINE METABOLITES Negative ng/mL BENZODIAZEPINES (STL) Negative ng/mL CANNABINOIDS POSITIVE ng/mL METHADONE Negative ng/mL OPIATES Negative ng/mL CREATININE URINE/OTHERS 110.1 mg/dL H 47.0 -110.0 OXYCODONE ([id number]) Negative ng/mL BUPRENORPHINE (STL-PB-MA) Negative ng/mL FENTANYL (STL-PB) Negative ng/mL Aug 25, 2024 02:03 PM [facility] URINE DRUG SCREEN (STL) URINE Specimen Type: URINE Comment: The cut-off value for Fentanyl was laboratory developed and its performance characteristics confirmed by the [facility] laboratory thru method comparison with reference laboratory and medication chart review. The laboratory is regulated under CLIA as qualified to perform high-complexity testing. Fentanyl is used for clinical purposes in conjunction with other laboratory tests. Ordering Provider: DANIEL GOMEZ Report Released Date/Time: Aug 24, 2024 07:24 PM Reporting Lab: [facility] [address] [facility] [address] Performing Lab: [facility] [address] [facility] [address] ETHANOL Negative mg/dL 0-20 AMPHET/METHAMPHETAMINE Negative ng/mL COCAINE METABOLITES Negative ng/mL BENZODIAZEPINES (STL) Negative ng/mL CANNABINOIDS POSITIVE ng/mL METHADONE Negative ng/mL OPIATES Negative ng/mL CREATININE URINE/OTHERS 39.0 mg/dL L 47-11 0 OXYCODONE ([id number]) Negative ng/mL BUPRENORPHINE (STL-PB-MA) Negative ng/mL FENTANYL (STL-PB) Negative ng/mL Aug 20, 2024 07:13 AM [facility] URINALYSIS W/ CX REFLEX (STL-PB) URINE Specim en Type: URINE No comment entered. Ordering Provider: DANIEL GOMEZ Report Released Date/Time: Aug 19, 2024 11:04 AM Reporting Lab: [facility] [place] [address] Performing Lab: [facility] [place] [address] URINE COLOR Yellow Yellow U.BILIRUBIN Negative mg/dL [...] 1.028 Aug 19, 2024 10:08 AM [facility] URINALYSIS (STL-PB) URINE Specimen Type: URIN E No comment entered. Ordering Provider: DANIEL GOMEZ Report Released Date/Time: Aug 16, 2024 03:45 PM Reporting Lab: [facility] [facility] [address] Performing Lab: [facility] [place] [address] URINE COLOR Yellow Yellow U.BILIRUBIN Negative mg/dL [...] 1.035 H Aug 19, 2024 10:08 AM [facility] TEST URINE (MA-STL) URINE Specimen Type: URINE No comment entered. Ordering Provider: DANIEL GOMEZ Report Released Date/Time: Aug 16, 2024 03:45 PM Reporting Lab: [facility] [address] Performing Lab: [facility] [facility] [address] Qualitative Test NEG NEGAT URBAN Aug 19, 2024 10:08 AM [facility] URINE DRUG SCREEN (STL) URINE Specimen Type: URINE Comment: The cut-off value for Fentanyl was laboratory developed and its performance characteristics confirmed by the [facility] laboratory thru method comparison with reference laboratory and medication chart review. The laboratory is regulated under CLIA as qualified to perform high-complexity testing. Fentanyl is used for clinical purposes in conjunction with other laboratory tests. Ordering Provider: DANIEL GOMEZ Report Released Date/Time: Aug 16, 2024 03:45 PM Reporting Lab: [facility] [address] Performing Lab: [facility] [address] ETHANOL Negative mg/dL 0-20 AMPHET/METHAMPHETAMINE Negative ng/mL COCAINE METABOLITES Negative ng/mL BENZODIAZEPINES (STL) Negative ng/mL CANNABINOIDS POSITIVE ng/mL METHADONE Negative ng/mL OPIATES POSITIVE ng/mL CREATININE URINE/OTHERS 266.1 mg/dL H 47.0 -110.0 OXYCODONE ([id number]) Negative ng/mL BUPRENORPHINE (STL-PB-MA) Negative ng/mL FENTANYL (STL-PB) Negative ng/mL Aug 19, 2024 10:00 AM [facility] CBC BLOOD Specimen Type: BLOOD No comment entered. Ordering Provider: DANIEL GOMEZ Report Released Date/Time: Aug 16, 2024 03:45 PM Reporting Lab: [facility] [phone] Performing Lab: [facility] [address] WBC 12.7 10*3/uL H 3.6-11.2 RBC 4.19 [...] 0.00-0. 20 Aug 19, 2024 09:59 AM [facility] COMPREHENSIVE METABOLIC PANEL PLASMA Specimen Type: PLASMA Comment: No hemolysis noted. Ordering Provider: DANIEL GOMEZ Report Released Date/Time: Aug 16, 2024 03:45 PM Reporting Lab: [facility] [facility] [address] Performing Lab: [facility] [facility] [address] CREATININE 0.75 mg/dL 0.60-1.10 UREA NITROGEN 12.0 [...] >60 Aug 19, 2024 09:59 AM [facility] PT/INR NEW (STL-MA) PLASMA Specimen Type: PLAS MA No comment entered. Ordering Provider: DANIEL GOMEZ Report Released Date/Time: Aug 16, 2024 03:45 PM Reporting Lab: [facility] [place] [address] Performing Lab: [facility] [facility] [phone] PROTIME 9.4 s 9.4-12.5 INR VALUE 0.8 {INR} Aug 19, 2024 09:59 AM [facility] ETHANOL SERUM/PLASMA (STL) PLASMA Specimen Typ e: PLASMA Comment: No hemolysis noted. Ordering Provider: DANIEL GOMEZ Report Released Date/Time: Aug 16, 2024 03:45 PM Reporting Lab: [facility] [address] Performing Lab: [facility] [facility] [address] ETHANOL SERUM/PLASMA (STL) <10.0 mg/dL 0 -10 Aug 19, 2024 09:59 AM [facility] GGT GAMMA-GT PLASMA Specimen Type: PLASM A No comment entered. Ordering Provider: DANIEL GOMEZ Report Released Date/Time: Aug 16, 2024 03:45 PM Reporting Lab: [facility] [address] [facility] [address] Performing Lab: [facility] [address] [facility] [address] GGT GAMMA-GT 14 [IU]/L 12-64 Aug 19, 2024 09:59 AM [facility] MAGNESIUM PLASMA Specimen Type: PLASM A Comment: No hemolysis noted. Ordering Provider: DANIEL GOMEZ Report Released Date/Time: Aug 16, 2024 03:45 PM Reporting Lab: [facility] [facility] [address] Performing Lab: [facility] [facility] [address] MAGNESIUM 2.1 mg/dL 1.6-2.6 Aug 19, 2024 09:59 AM [facility] CPK SERUM Specimen Type: SERUM No comment entered. Ordering Provider: DANIEL GOMEZ Report Released Date/Time: Aug 16, 2024 03:45 PM Reporting Lab: [facility] [facility] [phone] Performing Lab: [facility] [facility] [address] CPK 37 U/L 29-168 Aug 19, 2024 09:59 AM [facility] HEP C Ab HCV Ab (STL) SERUM Specimen Type: SE RUM No comment entered. Ordering Provider: DANIEL GOMEZ Report Released Date/Time: Aug 16, 2024 03:45 PM Reporting Lab: [facility] [address] [facility] [address] Performing Lab: [facility] [address] [facility] [address] HEP C Ab HCV Ab (STL) Nonreactive Nonrea ctive Aug 19, 2024 09:59 AM [facility] HIV COMBO FOURTH GENERATION (STL) SERUM Speci men Type: SERUM No comment entered. Ordering Provider: DANIEL GOMEZ Report Released Date/Time: Aug 16, 2024 03:45 PM Reporting Lab: [facility] [address] [facility] [address] Performing Lab: [facility] [address] [facility] [address] HIV COMBO FOURTH GENERATION (STL) Nonreactive Nonreactive Social History: Smoking Status (Most current) and Tobacco Use (All prior to encounter date) This section includes the most current, and the historical, smoking and tobacco- related health factors from the [facility] where the Encounter took place. Current Smoking Status This section includes the most current smoking, or tobacco-related health factor, from the [place] facility where the Encounter took place. Date/Time Current Smoking Status Comment Facil ity Aug 19, 2024 10:33 AM VA-TOBACCO USE ALFONZO RY DAY CIGARETTES [facility] Tobacco Use History This section includes a history of the smoking, or tobacco-related health factors, that were collected on or before the date of the Encounter. The data comes from the [place] facility where the Encounter took place. 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 Date/Time Encounter Note(s) Provider Source Sep 08, 2024 09:50 AM PASTORAL CARE NOTE : LOCAL TITLE: PASTORAL CARE NOTE STANDARD TITLE: PASTORAL CARE NOTE DATE OF NOTE: SEP 08, 2024@09:50 ENTRY DATE: SEP 08, 2024@10:14:56 AUTHOR: ALBERTO PALOMO COSIGNER: URGENCY: STATUS: COMPLETED Pastoral Visit: Routine [place] is known to radiation physicist. Dormitory Maid met with: Location: Dormitory Maid's Office Mormonism Preference: Other: Evangelical Non-specific Assessment: [place] and I talked earlier this morning. She and I had been talking about her calling her Dad to tell him she sold the Toy[employer] the 2 of them purchased. She used the money to pay for marijuana and pay bills. She was dreading the phone call and as of this morning, had not called him. She initially set a goal of calling him this weekend while in a one on one with me last week. I coached her through this, reminding her that part of this journey includes her facing her fears and her being transparent. She agreed she needed to do this. She later stopped by my office, beaming. She talked to her father for 30 minutes and was met with nothing but mercy. She said she felt supervisor communications and signals and so relieved. She also felt supported. She said it has helped her to not just face this fear but to face other fears she will have to deal with in her life. She said in the future she plans to not delay so long in facing those things that are difficult. I encouraged her to start journaling ways God is moving in her life as she saw this as God answering a big prayer for her. She is hopeful to get a NanoBioander for she and her 3 children. Her Dad asked her about the hess of such a car. appears more encouraged and ready to leave tomorrow for home. Initial Interaction: approached radiation physicist requesting visit Spiritual resources appear: adequate Discussed 's relationship with: God, family Discussed 's concerns regarding: condition, spirituality INTERVENTION Offered / accepted: pastoral support, spiritual counseling , pastoral celebration. OUTCOMES [place]'s Response: expressed appreciation for the visit, expressed decreased fear Observations: seemed calmer, appeared more at peace, seemed better equipped to cope with concerns, experienced support FOLLOW-UP Dormitory Maid will be available to as needed throughout this admission. /sanjeev/ Monica Palomo M.A., M.Div, [facility] ACCORDION TUNER Signed: 09/08/2024 10:24 ALBERTO PALOMO [facility]
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
--- OUTSIDE RECORDS SUMMARY | 2025-02-23 10:57 | XMS_ITS | Encounter Summary ---
Author Name [facility] [place] [place] Organization [facility] [place] Address [address] [place] [id number] Support Name Relationship Address Phone FUAD CHRISTINE [...] MEDIC AID Aug 02, 2015 MEDICAI D [id number] [phone] JENNIFER QUINONES PATIENT [facility] (WNR) MEDICAID MEDIC AID [facility] (WNR) Dec 01, 2023 MEDICAI D [id number] JENNIFER QUINONES PATIENT Selected Encounter This section includes the information on record at [place] for the Encounter. Date/Time Encounter Type Encounter Description Reason Pro vider Source IHE Encounter Template Text not used by [place]
--- OUTSIDE RECORDS SUMMARY | 2025-02-23 10:57 | XMS_ITS | Encounter Summary ---
Author Name [facility] [facility] [place] Address [address] [place] [address] Support Name Relationship Address Phone FUAD CHRISTINE Next of Kin Unknown CHRISTINE MERIDA Emergency Contact Unknown [phone] Insurance Providers: All historical and current Section [...] MEDIC AID Aug 02, 2015 MEDICAI D [id number] [phone] JENNIFER QUINONES PATIENT [facility] (WNR) MEDICAID MEDIC AID [facility] (WNR) Dec 01, 2023 MEDICAI D [id number] JENNIFER QUINONES PATIENT Selected Encounter This section includes the information on record at [place] for the Encounter. Date/Time Encounter Type Encounter Description Reason Provider Source Aug 30, 2024 06:15 PM SELF-MGMT EDUC/TRAIN 5-8 PT SUBSTANCE USE DISORDR GRP ICD-10-CM F11.90 Opioid use, unspecified, uncomplicated IGNACIO TOLBERT IHPeggy Encounter Template Text not used by [place] Assessments - Encounter Diagnoses This section includes the primary and secondary diagnoses documented for the Encounter. Date/Time Primary/Secondary Diagnosis Diagnosis Name Provider Source Aug 30, 2024 07:10 PM PRIMARY Opioid use, unspecified, uncomplicated [facility] TOLBERT [facility] Plan of Treatment: Future Appointments (+ 6 months) and Future Tests (+/- 45 days) The Plan of Treatment section includes future care activities for the patient from all [place] [facility] This section includes future appointments and future orders which are active, pending or scheduled. Future Appointments This section includes appointments that were scheduled to occur 6 months from the date of the Encounter, up to a maximum of 20 appointments. The data comes from all [place] treatment [facility]. Appointment Date/Time Appointment Type Appointme nt Facility Name Sep 10, 2024 12:30 PM AMBULATORY - PSYCHIATRY [facility] Sep 12, 2024 06:00 PM AMBULATORY - PSYCHIATRY [facility] Sep 17, 2024 06:00 PM AMBULATORY - PSYCHIATRY [facility] Sep 19, 2024 06:00 PM AMBULATORY - PSYCHIATRY [facility] Sep 26, 2024 06:00 PM AMBULATORY - PSYCHIATRY [facility] Oct 01, 2024 02:00 PM AMBULATORY - NONE [facility] Oct 09, 2024 03:00 PM AMBULATORY - MEDICINE [facility] Oct 16, 2024 01:00 PM AMBULATORY - PSYCHIATRY [facility] Oct 30, 2024 01:00 PM AMBULATORY - PSYCHIATRY [facility] Nov 27, 2024 01:00 PM AMBULATORY - PSYCHIATRY [facility] Dec 04, 2024 01:00 PM AMBULATORY - PSYCHIATRY [facility] Dec 11, 2024 01:00 PM AMBULATORY - PSYCHIATRY [facility] Dec 18, 2024 01:00 PM AMBULATORY - PSYCHIATRY [facility] Dec 25, 2024 01:00 PM AMBULATORY - PSYCHIATRY [facility] February 05, 2025 09:30 AM AMBULATORY - PSYCHIATRY [facility] Lab Results: +/- 30 days of the [...] Type Comment Sep 03, 2024 12:00 PM [facility] URINE DRUG SCREEN (STL) URINE Specimen Type: URINE Comment: The cut-off value for Fentanyl was laboratory developed and its performance characteristics confirmed by the [facility] laboratory thru method comparison with reference laboratory and medication chart review. The laboratory is regulated under CLIA as qualified to perform high-complexity testing. Fentanyl is used for clinical purposes in conjunction with other laboratory tests. Ordering Provider: DANIEL GOMEZ Report Released Date/Time: Sep 02, 2024 08:27 PM Reporting Lab: [facility] [facility] [phone] Performing Lab: [facility] [facility] [phone] ETHANOL <10.0 mg/dL 0-9 AMPHET/METHAMPHETAMINE Negative ng/mL COCAINE METABOLITES Negative ng/mL BENZODIAZEPINES (STL) Negative ng/mL CANNABINOIDS POSITIVE ng/mL METHADONE Negative ng/mL OPIATES Negative ng/mL CREATININE URINE/OTHERS 110.1 mg/dL H 47.0 -110.0 OXYCODONE (BGOBC-ICD-IR) Negative ng/mL BUPRENORPHINE (STL-PB-[place]) Negative ng/mL FENTANYL (STL-PB) Negative ng/mL Aug 25, 2024 02:03 PM [facility] URINE DRUG SCREEN (STL) URINE Specimen Type: URINE Comment: The cut-off value for Fentanyl was laboratory developed and its performance characteristics confirmed by the [facility] laboratory thru method comparison with reference laboratory and medication chart review. The laboratory is regulated under CLIA as qualified to perform high-complexity testing. Fentanyl is used for clinical purposes in conjunction with other laboratory tests. Ordering Provider: DANIEL GOMEZ Report Released Date/Time: Aug 24, 2024 07:24 PM Reporting Lab: [facility] [address] [facility] [address] Performing Lab: [facility] [address] [facility] [phone] ETHANOL Negative mg/dL 0-20 AMPHET/METHAMPHETAMINE Negative ng/mL COCAINE METABOLITES Negative ng/mL BENZODIAZEPINES (STL) Negative ng/mL CANNABINOIDS POSITIVE ng/mL METHADONE Negative ng/mL OPIATES Negative ng/mL CREATININE URINE/OTHERS 39.0 mg/dL L 47-11 0 OXYCODONE (BONDZ-VWU-OE) Negative ng/mL BUPRENORPHINE (STL-PB-[place]) Negative ng/mL FENTANYL (STL-PB) Negative ng/mL Aug 20, 2024 07:13 AM [facility] URINALYSIS W/ CX REFLEX (STL-PB) URINE Specim en Type: URINE No comment entered. Ordering Provider: DANIEL GOMEZ Report Released Date/Time: Aug 19, 2024 11:04 AM Reporting Lab: [facility] [place] [phone] Performing Lab: [facility] [place] [address] URINE COLOR Yellow Yellow U.BILIRUBIN Negative mg/dL [...] GRAVITY 1.028 Aug 19, 2024 10:08 AM [facility] URINALYSIS (STL-PB) URINE Specimen Type: URIN E No comment entered. Ordering Provider: DANIEL GOMEZ Report Released Date/Time: Aug 16, 2024 03:45 PM Reporting Lab: [facility] [facility] [phone] Performing Lab: [facility] [place] [address] URINE COLOR Yellow Yellow U.BILIRUBIN Negative mg/dL [...] 1.035 H Aug 19, 2024 10:08 AM [facility] TEST URINE ([place]-STL) URINE Specimen Type: URINE No comment entered. Ordering Provider: DANIEL GOMEZ Report Released Date/Time: Aug 16, 2024 03:45 PM Reporting Lab: [facility] [facility] [address] Performing Lab: [facility] [address] [facility] [phone] Qualitative Test NEG NEGAT URBAN Aug 19, 2024 10:08 AM [facility] URINE DRUG SCREEN (STL) URINE Specimen Type: URINE Comment: The cut-off value for Fentanyl was laboratory developed and its performance characteristics confirmed by the [facility] laboratory thru method comparison with reference laboratory and medication chart review. The laboratory is regulated under CLIA as qualified to perform high-complexity testing. Fentanyl is used for clinical purposes in conjunction with other laboratory tests. Ordering Provider: DANIEL GOMEZ Report Released Date/Time: Aug 16, 2024 03:45 PM Reporting Lab: [facility] [facility] [address] Performing Lab: [facility] [facility] [address] ETHANOL Negative mg/dL 0-20 AMPHET/METHAMPHETAMINE Negative ng/mL COCAINE METABOLITES Negative ng/mL BENZODIAZEPINES (STL) Negative ng/mL CANNABINOIDS POSITIVE ng/mL METHADONE Negative ng/mL OPIATES POSITIVE ng/mL CREATININE URINE/OTHERS 266.1 mg/dL H 47.0 -110.0 OXYCODONE (VJKNE-BQY-TU) Negative ng/mL BUPRENORPHINE (STL-PB-[place]) Negative ng/mL FENTANYL (STL-PB) Negative ng/mL Aug 19, 2024 10:00 AM [facility] CBC BLOOD Specimen Type: BLOOD No comment entered. Ordering Provider: DANIEL GOMEZ Report Released Date/Time: Aug 16, 2024 03:45 PM Reporting Lab: [facility] [facility] [address] Performing Lab: [facility] [address] [place] [phone] WBC 12.7 10*3/uL H 3.6-11.2 RBC 4.19 [...] 0.00-0. 20 Aug 19, 2024 09:59 AM [facility] COMPREHENSIVE METABOLIC PANEL PLASMA Specimen Type: PLASMA Comment: No hemolysis noted. Ordering Provider: DANIEL GOMEZ Report Released Date/Time: Aug 16, 2024 03:45 PM Reporting Lab: [facility] [facility] [address] Performing Lab: [facility] [address] [place] [phone] CREATININE 0.75 mg/dL 0.60-1.10 UREA NITROGEN 12.0 [...] 104.44 >60 Aug 19, 2024 09:59 AM [facility] PT/INR NEW (STL-[place]) PLASMA Specimen Type: PLAS [place] No comment entered. Ordering Provider: DANIEL GOMEZ Report Released Date/Time: Aug 16, 2024 03:45 PM Reporting Lab: [facility] [place] [address] Performing Lab: [facility] [place] [address] PROTIME 9.4 s 9.4-12.5 INR VALUE 0.8 {INR} Aug 19, 2024 09:59 AM [facility] ETHANOL SERUM/PLASMA (STL) PLASMA Specimen Typ e: PLASMA Comment: No hemolysis noted. Ordering Provider: DANIEL GOMEZ Report Released Date/Time: Aug 16, 2024 03:45 PM Reporting Lab: [facility] [facility] [phone] Performing Lab: [facility] [facility] [address] ETHANOL SERUM/PLASMA (STL) <10.0 mg/dL 0 -10 Aug 19, 2024 09:59 AM [facility] GGT GAMMA-GT PLASMA Specimen Type: PLASM A No comment entered. Ordering Provider: DANIEL GOMEZ Report Released Date/Time: Aug 16, 2024 03:45 PM Reporting Lab: [facility] [address] [facility] [address] Performing Lab: [facility] [address] [facility] [phone] GGT GAMMA-GT 14 [IU]/L 12-64 Aug 19, 2024 09:59 AM [facility] MAGNESIUM PLASMA Specimen Type: PLASM A Comment: No hemolysis noted. Ordering Provider: DANIEL GOMEZ Report Released Date/Time: Aug 16, 2024 03:45 PM Reporting Lab: [facility] [facility] [address] Performing Lab: [facility] [facility] [address] MAGNESIUM 2.1 mg/dL 1.6-2.6 Aug 19, 2024 09:59 AM [facility] CPK SERUM Specimen Type: SERUM No comment entered. Ordering Provider: DANIEL GOMEZ Report Released Date/Time: Aug 16, 2024 03:45 PM Reporting Lab: [facility] [facility] [address] Performing Lab: [facility] [facility] [address] CPK 37 U/L 29-168 Aug 19, 2024 09:59 AM [facility] HEP C Ab HCV Ab (STL) SERUM Specimen Type: SE RUM No comment entered. Ordering Provider: DANIEL GOMEZ Report Released Date/Time: Aug 16, 2024 03:45 PM Reporting Lab: [facility] [address] [facility] [address] Performing Lab: [facility] [address] [facility] [address] HEP C Ab HCV Ab (STL) Nonreactive Nonrea ctive Aug 19, 2024 09:59 AM [facility] HIV COMBO FOURTH GENERATION (STL) SERUM Speci men Type: SERUM No comment entered. Ordering Provider: DANIEL GOMEZ Report Released Date/Time: Aug 16, 2024 03:45 PM Reporting Lab: [facility] [address] [facility] [address] Performing Lab: [facility] [address] [facility] [address] HIV COMBO FOURTH GENERATION (STL) Nonreactive Nonreactive Encounter Notes: All associated encounter notes This section contains the clinical notes associated to the Encounter. Date/Time Encounter Note(s) Provider Source Aug 30, 2024 06:15 PM PSYCHIATRY GROUP C GURPREET NOTE: LOCAL TITLE: [facility] PSYCHIATRY GROUP NOTE STL STANDARD TITLE: PSYCHIATRY GROUP COUNSELING NOTE DATE OF NOTE: AUG 30, 2024@18:15 ENTRY DATE: AUG 30, 2024@19:02:22 AUTHOR: HUNTER TOLBERT EXP COSIGNER: URGENCY: STATUS: COMPLETED Discipline: Nursing Diagnosis: Substance Abuse Group Time: 1814 Group Topic: Monday Happy Hour Group Content: Belden was one of the participants for the 1800 Monday Night Happy Hour Group. Each participant was asked to relate a happy, positive experience from their past. Many funny, amusing, heartwarming and insightful incidents and memories were related by the participants. Veterans discussed their families, their friends, their service, and the events which shaped their lives. Group Goals: The purpose of this group is to introduce the participants to each other on a personal level, to positively reinforce the idea that we can have fun without drugs or alcohol and to promote bonding between peers. Patient Response: Actively engaged Number of patients in Group: 23 veterans attendede this group /sanjeev/ HUNTER TOLBERT EDUCATOR SENIOR CLINICAL Registered Nurse, THANH/[address] Signed: 08/30/2024 19:13 HUNTER TOLBERT
--- OUTSIDE RECORDS SUMMARY | 2025-02-23 10:57 | XMS_ITS | Encounter Summary ---
Author Name [facility] [facility] [place] Address [address] [place] [address] Support Name Relationship Address Phone FUAD CHRISTINE [...] MEDIC AID Aug 02, 2015 MEDICAI D [id number] [phone] STACIE JENNIFER PATIENT [facility] (WNR) MEDICAID MEDIC AID [facility] (WNR) Dec 01, 2023 MEDICAI D [id number] STACIE AYEJENNIFER PATIENT Selected Encounter This section includes the information on record at [place] for the Encounter. Date/Time Encounter Type Encounter Description Reason Provider Source Aug 19, 2024 06:15 PM SELF-MGMT EDUC/TRAIN 5-8 PT SUBSTANCE USE DISORDR GRP ICD-10-CM F14.90 Cocaine use, unspecified, uncomplicated KEYUR COKER Encounter Template Text not used by [place] Assessments - Encounter Diagnoses This section includes the primary and secondary diagnoses documented for the Encounter. Date/Time Primary/Secondary Diagnosis Diagnosis Name Provider Source Aug 19, 2024 06:37 PM PRIMARY Cocaine use, unspecified, uncomplicated JOSE COKER [facility] Plan of Treatment: Future Appointments (+ 6 months) and Future Tests (+/- 45 days) The Plan of Treatment section includes future care activities for the patient from all [place] [facility]. This section includes future appointments and future orders which are active, pending or scheduled. Future Appointments This section includes appointments that were scheduled to occur 6 months from the date of the Encounter, up to a maximum of 20 appointments. The data comes from all [place] treatment [facility]. Appointment Date/Time Appointment Type Appointme nt Facility Name Sep 10, 2024 12:30 PM [facility]UL[facility]ORY - [facility] Sep 12, 2024 06:00 PM AMBULATORY - PSYCHIATRY [facility] Sep 17, 2024 06:00 PM AMBULATORY - PSYCHIATRY [facility] Sep 19, 2024 06:00 PM AMBULATORY - PSYCHIATRY [facility] Sep 26, 2024 06:00 PM AMBULATORY - PSYCHIATRY [facility] Oct 01, 2024 02:00 PM AMBULATORY - NONE [facility] Oct 09, 2024 03:00 PM AMBULATORY - MEDICINE [facility] Oct 16, 2024 01:00 PM AMBULATORY - PSYCHIATRY [facility] Oct 30, 2024 01:00 PM AMBULATORY - PSYCHIATRY [facility] Nov 27, 2024 01:00 PM AMBULATORY - PSYCHIATRY [facility] Dec 04, 2024 01:00 PM AMBULATORY - PSYCHIATRY [facility] Dec 11, 2024 01:00 PM AMBULATORY - PSYCHIATRY [facility] Dec 18, 2024 01:00 PM AMBULATORY - PSYCHIATRY [facility] Dec 25, 2024 01:00 PM AMBULATORY - PSYCHIATRY [facility] February 05, 2025 09:30 AM AMBULATORY - PSYCHIATRY [facility] Lab Results: +/- 30 days of the encounter This section includes the Chemistry and Hematology Lab Results on record with [place] for the patient. Radiology Reports and Pathology Reports are provided separately, in subsequent sections. Lab Results This section contains the Chemistry/Hematology Results that were resulted 30 days before or 30 daysafter the date of the Encounter. Date/Time Source Result Type Result - Unit Interpretation Reference Range Specimen Type Comment Sep 03, 2024 12:00 PM [facility] URINE DRUG SCREEN (STL) URINE Specimen Type: URINE Comment: The cut-off value for Fentanyl was laboratory developed and its performance characteristics confirmed by the [facility] laboratory thru method comparison with reference laboratory and medication chart review. The laboratory is regulated under CLIA as qualified to perform high-complexity testing. Fentanyl is used for clinical purposes in conjunction with other laboratory tests. Ordering Provider: DANIEL GOMEZ Report Released Date/Time: Sep 02, 2024 08:27 PM Reporting Lab: [facility] [facility] [address] Performing Lab: [facility] [address] ETHANOL <10.0 mg/dL 0-9 AMPHET/METHAMPHETAMINE Negative ng/mL COCAINE METABOLITES Negative ng/mL BENZODIAZEPINES (STL) Negative ng/mL CANNABINOIDS POSITIVE ng/mL METHADONE Negative ng/mL OPIATES Negative ng/mL CREATININE URINE/OTHERS 110.1 mg/dL H 47.0 -110.0 OXYCODONE ([id number]) Negative ng/mL BUPRENORPHINE (STL-PB-MA) Negative ng/mL FENTANYL (STL-PB) Negative ng/mL Aug 25, 2024 02:03 PM [facility] URINE DRUG SCREEN (STL) URINE Specimen Type: URINE Comment: The cut-off value for Fentanyl was laboratory developed and its performance characteristics confirmed by the [facility] laboratory thru method comparison with reference laboratory and medication chart review. The laboratory is regulated under CLIA as qualified to perform high-complexity testing. Fentanyl is used for clinical purposes in conjunction with other laboratory tests. Ordering Provider: DANIEL GOMEZ Report Released Date/Time: Aug 24, 2024 07:24 PM Reporting Lab: [facility] [address] [facility] [address] Performing Lab: [facility] [address] [facility] [address] ETHANOL Negative mg/dL 0-20 AMPHET/METHAMPHETAMINE Negative ng/mL COCAINE METABOLITES Negative ng/mL BENZODIAZEPINES (STL) Negative ng/mL CANNABINOIDS POSITIVE ng/mL METHADONE Negative ng/mL OPIATES Negative ng/mL CREATININE URINE/OTHERS 39.0 mg/dL L 47-11 0 OXYCODONE ([id number]) Negative ng/mL BUPRENORPHINE (STL-PB-MA) Negative ng/mL FENTANYL (STL-PB) Negative ng/mL Aug 20, 2024 07:13 AM [facility] URINALYSIS W/ CX REFLEX (STL-PB) URINE Specim en Type: URINE No comment entered. Ordering Provider: DANIEL GOMEZ Report Released Date/Time: Aug 19, 2024 11:04 AM Reporting Lab: [facility] [place] [address] Performing Lab: [facility] [place] [address] URINE COLOR Yellow Yellow U.BILIRUBIN Negative mg/dL [...] GRAVITY 1.028 Aug 19, 2024 10:08 AM [facility] URINALYSIS (STL-PB) URINE Specimen Type: URIN E No comment entered. Ordering Provider: DANIEL GOMEZ Report Released Date/Time: Aug 16, 2024 03:45 PM Reporting Lab: [facility] [place] [address] Performing Lab: [facility] [place] [address] URINE COLOR Yellow Yellow U.BILIRUBIN Negative mg/dL [...] 1.035 H Aug 19, 2024 10:08 AM [facility] TEST URINE (MA-STL) URINE Specimen Type: URINE No comment entered. Ordering Provider: DANIEL GOMEZ Report Released Date/Time: Aug 16, 2024 03:45 PM Reporting Lab: [facility] [address] Performing Lab: [facility] [address] [facility] [address] Qualitative Test NEG NEGAT URBAN Aug 19, 2024 10:08 AM [facility] URINE DRUG SCREEN (STL) URINE Specimen Type: URINE Comment: The cut-off value for Fentanyl was laboratory developed and its performance characteristics confirmed by the [facility] laboratory thru method comparison with reference laboratory and medication chart review. The laboratory is regulated under CLIA as qualified to perform high-complexity testing. Fentanyl is used for clinical purposes in conjunction with other laboratory tests. Ordering Provider: DANIEL GOMEZ Report Released Date/Time: Aug 16, 2024 03:45 PM Reporting Lab: [facility] [address] Performing Lab: [facility] [facility] [address] ETHANOL Negative mg/dL 0-20 AMPHET/METHAMPHETAMINE Negative ng/mL COCAINE METABOLITES Negative ng/mL BENZODIAZEPINES (STL) Negative ng/mL CANNABINOIDS POSITIVE ng/mL METHADONE Negative ng/mL OPIATES POSITIVE ng/mL CREATININE URINE/OTHERS 266.1 mg/dL H 47.0 -110.0 OXYCODONE (OHVLD-ODI-ST) Negative ng/mL BUPRENORPHINE (STL-PB-MA) Negative ng/mL FENTANYL (STL-PB) Negative ng/mL Aug 19, 2024 10:00 AM [facility] CBC BLOOD Specimen Type: BLOOD No comment entered. Ordering Provider: DANIEL GOMEZ Report Released Date/Time: Aug 16, 2024 03:45 PM Reporting Lab: [facility] [facility] [address] Performing Lab: [facility] [address] [place] [phone] WBC 12.7 10*3/uL H 3.6-11.2 RBC 4.19 [...] 0.00-0. 20 Aug 19, 2024 09:59 AM [facility] COMPREHENSIVE METABOLIC PANEL PLASMA Specimen Type: PLASMA Comment: No hemolysis noted. Ordering Provider: DANIEL GOMEZ Report Released Date/Time: Aug 16, 2024 03:45 PM Reporting Lab: [facility] [facility] [address] Performing Lab: [facility] [place] [phone] CREATININE 0.75 mg/dL 0.60-1.10 UREA NITROGEN 12.0 [...] 104.44 >60 Aug 19, 2024 09:59 AM [facility] PT/INR NEW (STL-MA) PLASMA Specimen Type: PLAS MA No comment entered. Ordering Provider: DANIEL GOMEZ Report Released Date/Time: Aug 16, 2024 03:45 PM Reporting Lab: [facility] [place] [address] Performing Lab: [facility] [place] [address] PROTIME 9.4 s 9.4-12.5 INR VALUE 0.8 {INR} Aug 19, 2024 09:59 AM [facility] ETHANOL SERUM/PLASMA (STL) PLASMA Specimen Typ e: PLASMA Comment: No hemolysis noted. Ordering Provider: DANIEL GOMEZ Report Released Date/Time: Aug 16, 2024 03:45 PM Reporting Lab: [facility] [facility] [address] Performing Lab: [facility] [facility] [address] ETHANOL SERUM/PLASMA (STL) <10.0 mg/dL 0 -10 Aug 19, 2024 09:59 AM [facility] GGT GAMMA-GT PLASMA Specimen Type: PLASM A No comment entered. Ordering Provider: DANIEL GOMEZ Report Released Date/Time: Aug 16, 2024 03:45 PM Reporting Lab: [facility] [address] [place] [address] Performing Lab: [facility] [address] [place] [address] GGT GAMMA-GT 14 [IU]/L 12-64 Aug 19, 2024 09:59 AM [facility] MAGNESIUM PLASMA Specimen Type: PLASM A Comment: No hemolysis noted. Ordering Provider: DANIEL GOMEZ Report Released Date/Time: Aug 16, 2024 03:45 PM Reporting Lab: [facility] [facility] [address] Performing Lab: [facility] [facility] [address] MAGNESIUM 2.1 mg/dL 1.6-2.6 Aug 19, 2024 09:59 AM [facility] CPK SERUM Specimen Type: SERUM No comment entered. Ordering Provider: DANIEL GOMEZ Report Released Date/Time: Aug 16, 2024 03:45 PM Reporting Lab: [facility] [facility] [address] Performing Lab: [facility] [facility] [address] CPK 37 U/L 29-168 Aug 19, 2024 09:59 AM [facility] HIV COMBO FOURTH GENERATION (STL) SERUM Speci men Type: SERUM No comment entered. Ordering Provider: DANIEL GOMEZ Report Released Date/Time: Aug 16, 2024 03:45 PM Reporting Lab: [facility] [address] [place] [address] Performing Lab: [facility] [address] [place] [address] HIV COMBO FOURTH GENERATION (STL) Nonreactive Nonreactive Aug 19, 2024 09:59 AM [facility] HEP C Ab HCV Ab (STL) SERUM Specimen Type: SE RUM No comment entered. Ordering Provider: DANIEL GOMEZ Report Released Date/Time: Aug 16, 2024 03:45 PM Reporting Lab: [facility] [address] [place] [facility] [place] [address] Performing Lab: [facility] [address] [facility] [address] HEP C Ab HCV Ab (STL) Nonreactive Nonrea ctive Encounter Notes: All associated encounter notes This section contains the clinical notes associated to the Encounter. 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 Patient Response: Actively Engaged Number of Participants in Group: // ANTONIETTA COKER RN REGISTERED NURSE Signed: 08/19/2024 18:44 ANTONIETTA COKER [facility]
--- OUTSIDE RECORDS SUMMARY | 2025-02-23 10:57 | XMS_ITS | Encounter Summary ---
Author Name [facility] [place] Organization [facility] [place] Address [address] [place] [id number] Support Name Relationship Address Phone FUAD CHRISTINE Next of Kin Unknown CHRISTINE MERIDA Emergency Contact Unknown [phone] Insurance Providers: All historical and current Section [...] MEDIC AID Aug 02, 2015 MEDICAI D [id number] [phone] STACIE JENNIFER PATIENT [facility] (WNR) MEDICAID MEDIC AID [facility] (WNR) Dec 01, 2023 MEDICAI D [id number] STACIE AYEJENNIFER PATIENT Selected Encounter This section includes the information on record at [place] for the Encounter. Date/Time Encounter Type Encounter Description Reason Provider Source Sep 03, 2024 12:00 PM ALCOHOL AND/OR DRUG SERVICES RRTP INDIVIDUAL ICD-10-CM F12.20 Cannabis dependence, uncomplicated SUGEY ROSAS IHE Encounter Template Text not used by [place] Assessments - Encounter Diagnoses This section includes the primary and secondary diagnoses documented for the Encounter. Date/Time Primary/Secondary Diagnosis Diagnosis Name Provider Source Sep 03, 2024 04:12 PM PRIMARY Cannabis dependence, uncomplicated TOMI ROSAS [facility] Sep 03, 2024 04:12 PM SECONDARY Alcohol use, unspecified, uncomplicated TOMI ROSAS [facility] Sep 03, 2024 04:12 PM SECONDARY Cocaine use, unspecified, uncomplicated TOMI ROSAS [facility] Sep 03, 2024 04:12 PM SECONDARY Opioid use, unspecified, uncomplicated TOMI ROSAS [facility] Plan of Treatment: Future Appointments (+ 6 months) and Future Tests (+/- 45 days) The Plan of Treatment section includes future care activities for the patient from all [place] [facility] This section includes future appointments and future orders which are active, pending or scheduled. Future Appointments This section includes appointments that were scheduled to occur 6 months from the date of the Encounter, up to a maximum of 20 appointments. The data comes from all [facility] facilities. Appointment Date/Time Appointment Type Appointme nt Facility Name Sep 10, 2024 12:30 PM AMBULATORY - PSYCHIATRY [facility] Sep 12, 2024 06:00 PM AMBULATORY - PSYCHIATRY [facility] Sep 17, 2024 06:00 PM AMBULATORY - PSYCHIATRY [facility] Sep 19, 2024 06:00 PM AMBULATORY - PSYCHIATRY [facility] Sep 26, 2024 06:00 PM AMBULATORY - PSYCHIATRY [facility] Oct 01, 2024 02:00 PM AMBULATORY - NONE [facility] Oct 09, 2024 03:00 PM AMBULATORY - MEDICINE [facility] Oct 16, 2024 01:00 PM AMBULATORY - PSYCHIATRY [facility] Oct 30, 2024 01:00 PM AMBULATORY - PSYCHIATRY [facility] Nov 27, 2024 01:00 PM AMBULATORY - PSYCHIATRY [facility] Dec 04, 2024 01:00 PM AMBULATORY - PSYCHIATRY [facility] Dec 11, 2024 01:00 PM AMBULATORY - PSYCHIATRY [facility] Dec 18, 2024 01:00 PM AMBULATORY - PSYCHIATRY [facility] Dec 25, 2024 01:00 PM AMBULATORY - PSYCHIATRY [facility] February 05, 2025 09:30 AM AMBULATORY - PSYCHIATRY [facility] Lab Results: +/- 30 days of [...] Type Comment Sep 03, 2024 12:00 PM [facility] URINE DRUG SCREEN (STL) URINE Specimen Type: URINE Comment: The cut-off value for Fentanyl was laboratory developed and its performance characteristics confirmed by the [facility] laboratory thru method comparison with reference laboratory and medication chart review. The laboratory is regulated under CLIA as qualified to perform high-complexity testing. Fentanyl is used for clinical purposes in conjunction with other laboratory tests. Ordering Provider: DANIEL GOMEZ Report Released Date/Time: Sep 02, 2024 08:27 PM Reporting Lab: [facility] [address] Performing Lab: [facility] [address] ETHANOL <10.0 mg/dL 0-9 AMPHET/METHAMPHETAMINE Negative ng/mL COCAINE METABOLITES Negative ng/mL BENZODIAZEPINES (STL) Negative ng/mL CANNABINOIDS POSITIVE ng/mL METHADONE Negative ng/mL OPIATES Negative ng/mL CREATININE URINE/OTHERS 110.1 mg/dL H 47.0 -110.0 OXYCODONE ([id number]) Negative ng/mL BUPRENORPHINE (STL-PB-[place]) Negative ng/mL FENTANYL (STL-PB) Negative ng/mL Aug 25, 2024 02:03 PM [facility] URINE DRUG SCREEN (STL) URINE Specimen Type: URINE Comment: The cut-off value for Fentanyl was laboratory developed and its performance characteristics confirmed by the [facility] laboratory thru method comparison with reference laboratory and medication chart review. The laboratory is regulated under CLIA as qualified to perform high-complexity testing. Fentanyl is used for clinical purposes in conjunction with other laboratory tests. Ordering Provider: DANIEL GOMEZ Report Released Date/Time: Aug 24, 2024 07:24 PM Reporting Lab: [facility] [address] [place] [phone] Performing Lab: [facility] [address] [facility] [address] ETHANOL Negative mg/dL 0-20 AMPHET/METHAMPHETAMINE Negative ng/mL COCAINE METABOLITES Negative ng/mL BENZODIAZEPINES (STL) Negative ng/mL CANNABINOIDS POSITIVE ng/mL METHADONE Negative ng/mL OPIATES Negative ng/mL CREATININE URINE/OTHERS 39.0 mg/dL L 47-11 0 OXYCODONE ([id number]) Negative ng/mL BUPRENORPHINE (STL-PB-[place]) Negative ng/mL FENTANYL (STL-PB) Negative ng/mL Aug 20, 2024 07:13 AM [facility] URINALYSIS W/ CX REFLEX (STL-PB) URINE Specim en Type: URINE No comment entered. Ordering Provider: DANIEL GOMEZ Report Released Date/Time: Aug 19, 2024 11:04 AM Reporting Lab: [facility] [address] Performing Lab: [facility] [address] URINE COLOR Yellow Yellow U.BILIRUBIN Negative mg/dL [...] 10:08 AM [facility] URINALYSIS (STL-PB) URINE Specimen Type: URIN E No comment entered. Ordering Provider: DANIEL GOMEZ Report Released Date/Time: Aug 16, 2024 03:45 PM Reporting Lab: [facility] [address] Performing Lab: [facility] [place] [address] URINE COLOR Yellow Yellow U.BILIRUBIN Negative mg/dL [...] 1.035 H Aug 19, 2024 10:08 AM [facility] TEST URINE ([place]-STL) URINE Specimen Type: URINE No comment entered. Ordering Provider: DANIEL GOMEZ Report Released Date/Time: Aug 16, 2024 03:45 PM Reporting Lab: [facility] [place] [address] Performing Lab: [facility] [place] [address] Qualitative Test NEG NEGAT URBAN Aug 19, 2024 10:08 AM [facility] URINE DRUG SCREEN (STL) URINE Specimen Type: URINE Comment: The cut-off value for Fentanyl was laboratory developed and its performance characteristics confirmed by the [facility] laboratory thru method comparison with reference laboratory and medication chart review. The laboratory is regulated under CLIA as qualified to perform high-complexity testing. Fentanyl is used for clinical purposes in conjunction with other laboratory tests. Ordering Provider: DANIEL GOMEZ Report Released Date/Time: Aug 16, 2024 03:45 PM Reporting Lab: [facility] [place] [address] Performing Lab: [facility] [place] [address] ETHANOL Negative mg/dL 0-20 AMPHET/METHAMPHETAMINE Negative ng/mL COCAINE METABOLITES Negative ng/mL BENZODIAZEPINES (STL) Negative ng/mL CANNABINOIDS POSITIVE ng/mL METHADONE Negative ng/mL OPIATES POSITIVE ng/mL CREATININE URINE/OTHERS 266.1 mg/dL H 47.0 -110.0 OXYCODONE ([id number]) Negative ng/mL BUPRENORPHINE (STL-PB-[place]) Negative ng/mL FENTANYL (STL-PB) Negative ng/mL Aug 19, 2024 10:00 AM [facility] CBC BLOOD Specimen Type: BLOOD No comment entered. Ordering Provider: DANIEL GOMEZ Report Released Date/Time: Aug 16, 2024 03:45 PM Reporting Lab: [facility] [address] Performing Lab: [facility] [address] WBC 12.7 10*3/uL H 3.6-11.2 RBC 4.19 [...] 2024 09:59 AM [facility] COMPREHENSIVE METABOLIC PANEL PLASMA Specimen Type: PLASMA Comment: No hemolysis noted. Ordering Provider: DANIEL GOMEZ Report Released Date/Time: Aug 16, 2024 03:45 PM Reporting Lab: [facility] [place] [address] Performing Lab: [facility] [place] [address] CREATININE 0.75 mg/dL 0.60-1.10 UREA NITROGEN 12.0 [...] 104.44 >60 Aug 19, 2024 09:59 AM [facility] PT/INR NEW (STL-[place]) PLASMA Specimen Type: PLAS [place] No comment entered. Ordering Provider: DANIEL GOMEZ Report Released Date/Time: Aug 16, 2024 03:45 PM Reporting Lab: [facility] [place] [address] Performing Lab: [facility] [place] [address] PROTIME 9.4 s 9.4-12.5 INR VALUE 0.8 {INR} Aug 19, 2024 09:59 AM [facility] ETHANOL SERUM/PLASMA (STL) PLASMA Specimen Typ e: PLASMA Comment: No hemolysis noted. Ordering Provider: DANIEL GOMEZ Report Released Date/Time: Aug 16, 2024 03:45 PM Reporting Lab: [facility] [place] [address] Performing Lab: [facility] [address] ETHANOL SERUM/PLASMA (STL) <10.0 mg/dL 0 -10 Aug 19, 2024 09:59 AM [facility] GGT GAMMA-GT PLASMA Specimen Type: PLASM A No comment entered. Ordering Provider: DANIEL GOMEZ Report Released Date/Time: Aug 16, 2024 03:45 PM Reporting Lab: [facility] [address] [facility] [address] Performing Lab: [facility] [address] [facility] [address] GGT GAMMA-GT 14 [IU]/L 12-64 Aug 19, 2024 09:59 AM [facility] MAGNESIUM PLASMA Specimen Type: PLASM A Comment: No hemolysis noted. Ordering Provider: DANIEL GOMEZ Report Released Date/Time: Aug 16, 2024 03:45 PM Reporting Lab: [facility] [address] Performing Lab: [facility] [address] MAGNESIUM 2.1 mg/dL 1.6-2.6 Aug 19, 2024 09:59 AM [facility] CPK SERUM Specimen Type: SERUM No comment entered. Ordering Provider: DANIEL GOMEZ Report Released Date/Time: Aug 16, 2024 03:45 PM Reporting Lab: [facility] [address] Performing Lab: [facility] [address] CPK 37 U/L 29-168 Aug 19, 2024 09:59 AM [facility] HEP C Ab HCV Ab (STL) SERUM Specimen Type: SE RUM No comment entered. Ordering Provider: DANIEL GOMEZ Report Released Date/Time: Aug 16, 2024 03:45 PM Reporting Lab: [facility] [address] [facility] [address] Performing Lab: [facility] [address] [facility] [address] HEP C Ab HCV Ab (STL) Nonreactive Nonrea ctive Aug 19, 2024 09:59 AM [facility] HIV COMBO FOURTH GENERATION (STL) SERUM Speci men Type: SERUM No comment entered. Ordering Provider: DANIEL GOMEZ Report Released Date/Time: Aug 16, 2024 03:45 PM Reporting Lab: [facility] [address] [facility] [address] Performing Lab: [facility] [address] [facility] [address] HIV COMBO FOURTH GENERATION (STL) Nonreactive Nonreactive Social History: Smoking Status (Most current) and Tobacco Use (All prior to encounter date) This section includes the most current, and the historical, smoking and tobacco- related health factors from the [place] facility where the Encounter took place. Current Smoking Status This section includes the most current smoking, or tobacco-related health factor, from the [place] facility where the Encounter took place. Date/Time Current Smoking Status Comment Nan ity Aug 19, 2024 10:33 AM VA-TOBACCO USE ALFONZO RY DAY CIGARETTES [facility] Tobacco Use History This section includes a history of the smoking, or tobacco-related health factors, that were collected on or before the date of the Encounter. The data comes from the [place] facility where the Encounter took place. 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 Date/Time Encounter Note(s) Provider Source Sep 03, 2024 04:03 PM ADDICTION PSYCHIAT RY NOTE: LOCAL TITLE: [facility] STANDARD TITLE: ADDICTION PSYCHIATRY NOTE DATE OF NOTE: SEP 03, 2024@16:03 ENTRY DATE: SEP 03, 2024@16:03:45 AUTHOR: TOMI ROSAS EXP COSIGNER: URGENCY: STATUS: COMPLETED INDIVIDUAL VISIT WITH (Initially Met for Mid Review/Extended meeting due to vet sharing suicidal thoughts.) C-SSRS completed. DURATION OF VISIT: 80 minutes OBJECTIVE OF VISIT: [place] completed C-SSRS with AT. Recovery Safety Plan completed and warm hand off to Nurse Practitioner Nash Louis. INTERVENTIONS: Motivational interviewing, resources offered, CBT, shared experiences, exploring possibilities for concerns LEVEL OF ENGAGEMENT: Active RESPONSE TO INTERVENTION: [place] was in Mid Review meeting when AT inquired what it would look like when she returns home from treatment. [place] stated that she is not looking forward to going home and feels very depressed and apprehensive about it. She stated she felt extremely suicidal yesterday and sucidal today. At this point, C-SSRS was then completed. AT completed recovery safety plan with and then reassessed veterans suicidal ideations/plans/thoughts. stated she was glad she talked about goals, support systems, triggers, external and internal coping skills, reasons to remain sober and what to do in case of a slip. [place] stated she had gone from having feelings of suicide to feeling like she has hope, a plan and things to look forward to. AT then requested speak briefly to LIP ALICIA Louis. agreed. RISK ASSESSMENT: did not verbalize any new risk factors related to suicidal or homicidal ideation during session. DIAGNOSIS:Cannabis/Cocaine /Alcohol/Opioids /sanjeev/ TOMI ROSAS Addiction Therapist, LEVI WATTERS / THANH Signed: 09/03/2024 16:13 Receipt Acknowledged By: 09/04/2024 08:57 /sanjeev/ Vitaliy Youssef, Ph.D. Psychologist, Pan Helper THANH Roper 09/04/2024 07:50 /sanjeev/ [facility] Registered Nurse - Mental Health 09/05/2024 12:00 /es/ Jenelle Davis Centrifugal Extractor Operator, LEVI [address]/THANH Program TOMI ROSAS [facility]
--- OUTSIDE RECORDS SUMMARY | 2025-02-23 10:57 | XMS_ITS ---
Author Name [facility] [place] [facility] [place] Address [address] [place] [id number] Support Name Relationship Address Phone FUAD CHRISTINE [...] MEDIC AID Aug 02, 2015 MEDICAI D [id number] [phone] STACIE AYEJENNIFER PATIENT [facility] (WNR) MEDICAID MEDIC AID [facility] (WNR) Dec 01, 2023 MEDICAI D [id number] STACIE JENNIFER PATIENT Selected Encounter This section includes the information on record at [place] for the Encounter. Date/Time Encounter Type Encounter Description Reason Provider Source Sep 05, 2024 10:20 AM [facility] [place] [facility] CAPONIZER INDIVIDU [facility] [place] [facility] SERVICE - INDIVIDUAL ICD-10-CM Z71.81 Spiritual or episcopal counseling [facility] Encounter Template Text not used by [place] Assessments - Encounter Diagnoses This section includes the primary and secondary diagnoses documented for the Encounter. Date/Time Primary/Secondary Diagnosis Diagnosis Name Provider Source Sep 05, 2024 04:31 PM PRIMARY Spiritual or episcopal counseling [facility]BERTO PALOMO [facility] Plan of Treatment: Future Appointments (+ 6 months) and Future Tests (+/- 45 days) The Plan of Treatment section includes future care activities for the patient from [facility] [place] [facility] This section includes future appointments and future orders which are active, pending or scheduled. Future Appointments This section includes appointments that were scheduled to occur 6 months from the date of the Encounter, up to a maximum of 20 appointments. The data comes from all [place] treatment facilities. Appointment Date/Time Appointment Type Appointme nt Facility Name Sep 10, 2024 12:30 PM AMBULATORY - PSYCHIATRY [facility] Sep 12, 2024 06:00 PM AMBULATORY - PS[facility]CHIATRY [facility] Sep 17, 2024 06:00 PM AMBULATORY - PSYCHIATRY [facility] Sep 19, 2024 06:00 PM AMBULATORY - PSYCHIATRY [facility] Sep 26, 2024 06:00 PM AMBULATORY - PSYCHIATRY [facility] Oct 01, 2024 02:00 PM AMBULATORY - NONE [facility] Oct 09, 2024 03:00 PM AMBULATORY - MEDICINE [facility] Oct 16, 2024 01:00 PM AMBULATORY - PSYCHIATRY [facility] Oct 30, 2024 01:00 PM AMBULATORY - PSYCHIATRY [facility] Nov 27, 2024 01:00 PM AMBULATORY - PSYCHIATRY [facility] Dec 04, 2024 01:00 PM AMBULATORY - PSYCHIATRY [facility] Dec 11, 2024 01:00 PM AMBULATORY - PSYCHIATRY [facility] Dec 18, 2024 01:00 PM AMBULATORY - PSYCHIATRY [facility] Dec 25, 2024 01:00 PM AMBULATORY - PSYCHIATRY [facility] February 05, 2025 09:30 AM AMBULATORY - PSYCHIATRY [facility] Lab Results: +/- 30 days of the encounter This section includes the Chemistry and Hematology Lab Results on record with [place] for the patient. Radiology Reports and Pathology Reports are provided separately, in subsequent sections. Lab Results This section contains the Chemistry/Hematology Results that were resulted 30 days before or 30 daysafter the date of the Encounter. Date/Time Source Result Type Result - Unit Interpretation Reference Range Specimen Type Comment Sep 03, 2024 12:00 PM [facility] URINE DRUG SCREEN (STL) URINE Specimen Type: URINE Comment: The cut-off value for Fentanyl was laboratory developed and its performance characteristics confirmed by the [facility] laboratory thru method comparison with reference laboratory and medication chart review. The laboratory is regulated under CLIA as qualified to perform high-complexity testing. Fentanyl is used for clinical purposes in conjunction with other laboratory tests. Ordering Provider: DANIEL GOMEZ Report Released Date/Time: Sep 02, 2024 08:27 PM Reporting Lab: [facility] [address] Performing Lab: [facility] [address] ETHANOL <10.0 mg/dL 0-9 AMPHET/METHAMPHETAMINE Negative ng/mL COCAINE METABOLITES Negative ng/mL BENZODIAZEPINES (STL) Negative ng/mL CANNABINOIDS POSITIVE ng/mL METHADONE Negative ng/mL OPIATES Negative ng/mL CREATININE URINE/OTHERS 110.1 mg/dL H 47.0 -110.0 OXYCODONE ([id number]) Negative ng/mL BUPRENORPHINE (STL-PB-MA) Negative ng/mL FENTANYL (STL-PB) Negative ng/mL Aug 25, 2024 02:03 PM [facility] URINE DRUG SCREEN (STL) URINE Specimen Type: URINE Comment: The cut-off value for Fentanyl was laboratory developed and its performance characteristics confirmed by the [facility] laboratory thru method comparison with reference laboratory and medication chart review. The laboratory is regulated under CLIA as qualified to perform high-complexity testing. Fentanyl is used for clinical purposes in conjunction with other laboratory tests. Ordering Provider: DANIEL GOMEZ Report Released Date/Time: Aug 24, 2024 07:24 PM Reporting Lab: [facility] [address] [facility] [address] Performing Lab: [facility] [address] [facility] [address] ETHANOL Negative mg/dL 0-20 AMPHET/METHAMPHETAMINE Negative ng/mL COCAINE METABOLITES Negative ng/mL BENZODIAZEPINES (STL) Negative ng/mL CANNABINOIDS POSITIVE ng/mL METHADONE Negative ng/mL OPIATES Negative ng/mL CREATININE URINE/OTHERS 39.0 mg/dL L 47-11 0 OXYCODONE ([id number]) Negative ng/mL BUPRENORPHINE (STL-PB-MA) Negative ng/mL FENTANYL (STL-PB) Negative ng/mL Aug 20, 2024 07:13 AM [facility] URINALYSIS W/ CX REFLEX (STL-PB) URINE Specim en Type: URINE No comment entered. Ordering Provider: DANIEL GMOEZ Report Released Date/Time: Aug 19, 2024 11:04 AM Reporting Lab: [facility] [place] [address] Performing Lab: [facility] [place] [address] URINE COLOR Yellow Yellow U.BILIRUBIN Negative mg/dL [...] GRAVITY 1.028 Aug 19, 2024 10:08 AM [facility] URINALYSIS (STL-PB) URINE Specimen Type: URIN E No comment entered. Ordering Provider: DANIEL GOMEZ Report Released Date/Time: Aug 16, 2024 03:45 PM Reporting Lab: [facility] [address] Performing Lab: [facility] [place] [address] URINE COLOR Yellow Yellow U.BILIRUBIN Negative mg/dL [...] H Aug 19, 2024 10:08 AM [facility] TEST URINE (MA-STL) URINE Specimen Type: URINE No comment entered. Ordering Provider: DANIEL GOMEZ Report Released Date/Time: Aug 16, 2024 03:45 PM Reporting Lab: [facility] [address] Performing Lab: [facility] [address] Qualitative Test NEG NEGAT URBAN Aug 19, 2024 10:08 AM [facility] URINE DRUG SCREEN (STL) URINE Specimen Type: URINE Comment: The cut-off value for Fentanyl was laboratory developed and its performance characteristics confirmed by the [facility] laboratory thru method comparison with reference laboratory and medication chart review. The laboratory is regulated under CLIA as qualified to perform high-complexity testing. Fentanyl is used for clinical purposes in conjunction with other laboratory tests. Ordering Provider: DANIEL GOMEZ Report Released Date/Time: Aug 16, 2024 03:45 PM Reporting Lab: [facility] [address] Performing Lab: [facility] [address] ETHANOL Negative mg/dL 0-20 AMPHET/METHAMPHETAMINE Negative ng/mL COCAINE METABOLITES Negative ng/mL BENZODIAZEPINES (STL) Negative ng/mL CANNABINOIDS POSITIVE ng/mL METHADONE Negative ng/mL OPIATES POSITIVE ng/mL CREATININE URINE/OTHERS 266.1 mg/dL H 47.0 -110.0 OXYCODONE ([id number]) Negative ng/mL BUPRENORPHINE (STL-PB-MA) Negative ng/mL FENTANYL (STL-PB) Negative ng/mL Aug 19, 2024 10:00 AM [facility] CBC BLOOD Specimen Type: BLOOD No comment entered. Ordering Provider: DANIEL GOMEZ Report Released Date/Time: Aug 16, 2024 03:45 PM Reporting Lab: [facility] [address] Performing Lab: [facility] [address] WBC 12.7 10*3/uL H 3.6-11.2 RBC 4.19 [...] 20 Aug 19, 2024 09:59 AM [facility] COMPREHENSIVE METABOLIC PANEL PLASMA Specimen Type: PLASMA Comment: No hemolysis noted. Ordering Provider: DANIEL GOMEZ Report Released Date/Time: Aug 16, 2024 03:45 PM Reporting Lab: [facility] [address] Performing Lab: [facility] [address] CREATININE 0.75 mg/dL 0.60-1.10 UREA NITROGEN 12.0 [...] 104.44 >60 Aug 19, 2024 09:59 AM [facility] PT/INR NEW (STL-MA) PLASMA Specimen Type: PLAS MA No comment entered. Ordering Provider: DANIEL GOMEZ Report Released Date/Time: Aug 16, 2024 03:45 PM Reporting Lab: [facility] [place] [address] Performing Lab: [facility] [address] PROTIME 9.4 s 9.4-12.5 INR VALUE 0.8 {INR} Aug 19, 2024 09:59 AM [facility] ETHANOL SERUM/PLASMA (STL) PLASMA Specimen Typ e: PLASMA Comment: No hemolysis noted. Ordering Provider: DANIEL GOMEZ Report Released Date/Time: Aug 16, 2024 03:45 PM Reporting Lab: [facility] [address] Performing Lab: [facility] [address] ETHANOL SERUM/PLASMA (STL) <10.0 mg/dL 0 -10 Aug 19, 2024 09:59 AM [facility] GGT GAMMA-GT PLASMA Specimen Type: PLASM A No comment entered. Ordering Provider: DANIEL GOMEZ Report Released Date/Time: Aug 16, 2024 03:45 PM Reporting Lab: [facility] [address] [address] Performing Lab: [facility] [address] [facility] [address] GGT GAMMA-GT 14 [IU]/L 12-64 Aug 19, 2024 09:59 AM [facility] MAGNESIUM PLASMA Specimen Type: PLASM A Comment: No hemolysis noted. Ordering Provider: DANIEL GOMEZ Report Released Date/Time: Aug 16, 2024 03:45 PM Reporting Lab: [facility] [address] Performing Lab: [facility] [address] MAGNESIUM 2.1 mg/dL 1.6-2.6 Aug 19, 2024 09:59 AM [facility] CPK SERUM Specimen Type: SERUM No comment entered. Ordering Provider: DANIEL GOMEZ Report Released Date/Time: Aug 16, 2024 03:45 PM Reporting Lab: [facility] [address] Performing Lab: [facility] [facility] [address] CPK 37 U/L 29-168 Aug 19, 2024 09:59 AM [facility] HEP C Ab HCV Ab (STL) SERUM Specimen Type: SE RUM No comment entered. Ordering Provider: DANIEL GOMEZ Report Released Date/Time: Aug 16, 2024 03:45 PM Reporting Lab: [facility] [address] [facility] [address] Performing Lab: [facility] [address] [facility] [address] HEP C Ab HCV Ab (STL) Nonreactive Nonrea ctive Aug 19, 2024 09:59 AM [facility] HIV COMBO FOURTH GENERATION (STL) SERUM Speci men Type: SERUM No comment entered. Ordering Provider: DANIEL GOMEZ Report Released Date/Time: Aug 16, 2024 03:45 PM Reporting Lab: [facility] [address] [facility] [address] Performing Lab: [facility] [address] [address] HIV COMBO FOURTH GENERATION (STL) Nonreactive Nonreactive Social History: Smoking Status (Most current) and Tobacco Use (All prior to encounter date) This section includes the most current, and the historical, smoking and tobacco- related health factors from the [facility] where the Encounter took place. Current Smoking Status This section includes the most current smoking, or tobacco-related health factor, from the [place] facility where the Encounter took place. Date/Time Current Smoking Status Comment Facil ity Aug 19, 2024 10:33 AM VA-TOBACCO USE ALFONZO RY DAY CIGARETTES [facility] Tobacco Use History This section includes a history of the smoking, or tobacco-related health factors, that were collected on or before the date of the Encounter. The data comes from the [place] facility where the Encounter took place. Date/Time Smoking Status/Tobacco Use Comment F acility Aug 19, 2024 10:33 AM VA-TOBACCO SCREEN FOLLOW-UP [facility] Aug 19, 2024 10:33 AM VA-TOBACCO USE ADVICE [facility] Aug 19, 2024 10:33 AM VA-TOBACCO USE CAPONIZER NO [facility] Aug 19, 2024 10:33 AM VA-TOBACCO USE ALFONZO RY DAY CIGARETTES [facility] Aug 19, 2024 10:33 AM VA-TOBACCO USE MED YES [facility] Aug 19, 2024 10:33 AM VA-TOBACCO USE WI 30 MIN OF WAKEUP [facility] Encounter Notes: All associated encounter notes This section contains the clinical notes associated to the Encounter. 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 met with: Deanne Location: Weigh Machine Operator's Office Christian Preference: Other: Orthodox Non-specific Assessment: Deanne said she was dealing with anxiety the other day about going back home. This caused SI. She said she feels great now. She said talking to and planning goals with her family caseworker Mikayla helped her tremendously. She has no SI currently. She identified that what appeared to be anger was really fear of the unknown and fear of going back to a challenging environment. Her 2 youngest children have joint custody with their father. He lets them stay up really late and has few rules. He also talks badly about to the kids. They come home defiant and hard to deal with. We talked about the root of anger as fear, strategies for dealing with these emotions, and ways to deal with the children. I recommended when she finds a islam that she connect with the retail sales professional and children's body maker machine setter for extra support/advice. She eventually wants to get her own home and purchase a car. She is in low income housing right now. It's a big place but very dated. She will not consider moving until she finds a islam she really loves. She plans to navigate transportation to islam on her own. She currently lives in [place]. There is not much opportunity in that town but it is where the 2 youngest kids' father is and they have 50/50 custody. She is talking to her father Monday to fill him in on where she is at with things (i.e., she sold the car he helped her buy when she needed to pay bills). Her father does well financially; he lives in [place] with her stepmother. Her mother struggles and lives with her own mother. Deanne describes her parents as living in 2 different worlds. Deanne has many siblings and 4 half-siblings too. Her siblings are all doing well and thriving. Her father is a person of jn and is proud of the steps she is taking right now. She is awaiting service connection. She hopes to volunteer or work. Her oldest dtr lives with her father and his in [place]. She is thriving in school there, with her friends. Deanne feels more hopeful when she has a plan. We planned how she can incorporate spirituality into her day. This made her happy. I also gave her a Bible reading plan, a [employer] Bible and the book, On Fire. She said one of her goals is to make homemade meals. is forward-thinking and appears more encouraged. Spirituality is important to her. She finds strength through prayer, Bible reading, attending islam and devotionals, and talking about her jn. Initial Interaction: Elkins approached tracer bullet section supervisor requesting visit Spiritual resources appear: adequate Discussed 's relationship with: God, islam, family, medical staff Discussed 's concerns regarding: condition, spirituality INTERVENTION Offered / accepted: prayer, pastoral support, spiritual counseling, episcopal/spiritual literature, supportive listening , compassion, asked guided questions, shared online sermon resources (My Booker, Jenni Ruiz, Jonathan Pool, Jason Dyson), shared words of hope and inspiration, provided access to a quiet place for sharing. OUTCOMES Elkins's Response: expressed appreciation for the visit Observations: appeared more at peace, seemed better equipped to cope with concerns, experienced support FOLLOW-UP Weigh Machine Operator will be available to as needed throughout this admission. /sanjeev/ Monica Palomo M.A., M.Julian, [facility] [place] [facility]ORI Signed: 09/05/2024 16:31 [facility]
--- OUTSIDE RECORDS SUMMARY | 2025-02-23 10:57 | XMS_ITS | Encounter Summary ---
Author Name [facility] (ID) Organization [facility] (ID) Address [address] [place] [id number] Support Name Relationship Address Phone FUAD CHRISTINE Next of Kin Unknown CHRISTINE MERIDA Emergency Contact Unknown [phone] Insurance Providers: All historical and current Section [...] MEDIC AID Aug 02, 2015 MEDICAI D [id number] [phone] JENNIFER QUINONES PATIENT [facility] (WNR) MEDICAID MEDIC AID [facility] (WNR) Dec 01, 2023 MEDICAI D [id number] JENNIFER QUINONES PATIENT Selected Encounter This section includes the information on record at ID for the Encounter. Date/Time Encounter Type Encounter Description Reason Provider Source Sep 03, 2024 04:22 PM Inpatient Visit RRTP INDIVIDUAL ICD-10-CM R45.851 Suicidal ideations [facility] Peggy Encounter Template Text not used by ID Assessments - Encounter Diagnoses This section includes the primary and secondary diagnoses documented for the Encounter. Date/Time Primary/Secondary Diagnosis Diagnosis Name Provider Source Sep 03, 2024 04:40 PM PRIMARY Suicidal ideations [facility] Sep 03, 2024 04:40 PM SECONDARY Anxiety disorder, unspecified [facility] Sep 03, 2024 04:40 PM SECONDARY Depression, unspecified SEVERLOPEZ QUACH [facility] Plan of Treatment: Future Appointments (+ 6 months) and Future Tests (+/- 45 days) The Plan of Treatment section includes future care activities for the patient from [facility]. This section includes future appointments and future orders which are active, pending or scheduled. Future Appointments This section includes appointments that were scheduled to occur 6 months from the date of the Encounter, up to a maximum of 20 appointments. The data comes from all [facility] facilities. Appointment Date/Time Appointment Type Appointme nt Facility Name Sep 10, 2024 12:30 PM AMBULATORY - PSYCHIATRY [facility] Sep 12, 2024 06:00 PM AMBULATORY - PSYCHIATRY [facility] Sep 17, 2024 06:00 PM AMBULATORY - PSYCHIATRY [facility] Sep 19, 2024 06:00 PM AMBULATORY - PSYCHIATRY [facility] Sep 26, 2024 06:00 PM AMBULATORY - PSYCHIATRY [facility] Oct 01, 2024 02:00 PM AMBULATORY - NONE [facility] Oct 09, 2024 03:00 PM AMBULATORY - MEDICINE [facility] Oct 16, 2024 01:00 PM AMBULATORY - PSYCHIATRY [facility] Oct 30, 2024 01:00 PM AMBULATORY - PSYCHIATRY [facility] Nov 27, 2024 01:00 PM AMBULATORY - PSYCHIATRY [facility] Dec 04, 2024 01:00 PM AMBULATORY - PSYCHIATRY [facility] Dec 11, 2024 01:00 PM AMBULATORY - PSYCHIATRY [facility] Dec 18, 2024 01:00 PM AMBULATORY - PSYCHIATRY [facility] Dec 25, 2024 01:00 PM AMBULATORY - PSYCHIATRY [facility] February 05, 2025 09:30 AM AMBULATORY - PSYCHIATRY [facility] Lab Results: +/- 30 days of the encounter This section includes the Chemistry and Hematology Lab Results on record with ID for the patient. Radiology Reports and Pathology Reports are provided separately, in subsequent sections. Lab Results This section contains the Chemistry/Hematology Results that were resulted 30 days before or 30 daysafter the date of the Encounter. Date/Time Source Result Type Result - Unit Interpretation Reference Range Specimen Type Comment Sep 03, 2024 12:00 PM [facility] URINE DRUG SCREEN (STL) URINE Specimen Type: URINE Comment: The cut-off value for Fentanyl was laboratory developed and its performance characteristics confirmed by the [facility] laboratory thru method comparison with reference laboratory and medication chart review. The laboratory is regulated under CLIA as qualified to perform high-complexity testing. Fentanyl is used for clinical purposes in conjunction with other laboratory tests. Ordering Provider: DANIEL GOMEZ Report Released Date/Time: Sep 02, 2024 08:27 PM Reporting Lab: [facility] [facility] [phone] Performing Lab: [facility] [phone] ETHANOL <10.0 mg/dL 0-9 AMPHET/METHAMPHETAMINE Negative ng/mL COCAINE METABOLITES Negative ng/mL BENZODIAZEPINES (STL) Negative ng/mL CANNABINOIDS POSITIVE ng/mL METHADONE Negative ng/mL OPIATES Negative ng/mL CREATININE URINE/OTHERS 110.1 mg/dL H 47.0 -110.0 OXYCODONE (IFWGL-FMG-ZC) Negative ng/mL BUPRENORPHINE (STL-PB-MA) Negative ng/mL FENTANYL (STL-PB) Negative ng/mL Aug 25, 2024 02:03 PM [facility] URINE DRUG SCREEN (STL) URINE Specimen Type: URINE Comment: The cut-off value for Fentanyl was laboratory developed and its performance characteristics confirmed by the [facility] laboratory thru method comparison with reference laboratory and medication chart review. The laboratory is regulated under CLIA as qualified to perform high-complexity testing. Fentanyl is used for clinical purposes in conjunction with other laboratory tests. Ordering Provider: DANIEL GOMEZ Report Released Date/Time: Aug 24, 2024 07:24 PM Reporting Lab: [facility] [address] [facility] [phone] Performing Lab: [facility] [address] [address] [phone] ETHANOL Negative mg/dL 0-20 AMPHET/METHAMPHETAMINE Negative ng/mL COCAINE METABOLITES Negative ng/mL BENZODIAZEPINES (STL) Negative ng/mL CANNABINOIDS POSITIVE ng/mL METHADONE Negative ng/mL OPIATES Negative ng/mL CREATININE URINE/OTHERS 39.0 mg/dL L 47-11 0 OXYCODONE (QFNTW-EWH-DC) Negative ng/mL BUPRENORPHINE (STL-PB-MA) Negative ng/mL FENTANYL (STL-PB) Negative ng/mL Aug 20, 2024 07:13 AM [facility] URINALYSIS W/ CX REFLEX (STL-PB) URINE Specim en Type: URINE No comment entered. Ordering Provider: DANIEL GOMEZ Report Released Date/Time: Aug 19, 2024 11:04 AM Reporting Lab: [facility] [phone] Performing Lab: [facility] [address] [place] [id number] URINE COLOR Yellow Yellow U.BILIRUBIN Negative mg/dL [...] GRAVITY 1.028 Aug 19, 2024 10:08 AM [facility] URINALYSIS (STL-PB) URINE Specimen Type: URIN E No comment entered. Ordering Provider: DANIEL GOMEZ Report Released Date/Time: Aug 16, 2024 03:45 PM Reporting Lab: [facility] [phone] Performing Lab: [facility] [facility] [phone] URINE COLOR Yellow Yellow U.BILIRUBIN Negative mg/dL [...] 1.035 H Aug 19, 2024 10:08 AM [facility] TEST URINE (MA-STL) URINE Specimen Type: URINE No comment entered. Ordering Provider: DANIEL GOMEZ Report Released Date/Time: Aug 16, 2024 03:45 PM Reporting Lab: [facility] [phone] Performing Lab: [facility] [facility] [phone] Qualitative Test NEG NEGAT URBAN Aug 19, 2024 10:08 AM [facility] URINE DRUG SCREEN (STL) URINE Specimen Type: URINE Comment: The cut-off value for Fentanyl was laboratory developed and its performance characteristics confirmed by the [facility] laboratory thru method comparison with reference laboratory and medication chart review. The laboratory is regulated under CLIA as qualified to perform high-complexity testing. Fentanyl is used for clinical purposes in conjunction with other laboratory tests. Ordering Provider: DANIEL GOMEZ Report Released Date/Time: Aug 16, 2024 03:45 PM Reporting Lab: [facility] [phone] Performing Lab: [facility] [facility] [phone] ETHANOL Negative mg/dL 0-20 AMPHET/METHAMPHETAMINE Negative ng/mL COCAINE METABOLITES Negative ng/mL BENZODIAZEPINES (STL) Negative ng/mL CANNABINOIDS POSITIVE ng/mL METHADONE Negative ng/mL OPIATES POSITIVE ng/mL CREATININE URINE/OTHERS 266.1 mg/dL H 47.0 -110.0 OXYCODONE (HELTH-OXG-OJ) Negative ng/mL BUPRENORPHINE (STL-PB-MA) Negative ng/mL FENTANYL (STL-PB) Negative ng/mL Aug 19, 2024 10:00 AM [facility] CBC BLOOD Specimen Type: BLOOD No comment entered. Ordering Provider: DANIEL GOMEZ Report Released Date/Time: Aug 16, 2024 03:45 PM Reporting Lab: [facility] [phone] Performing Lab: [facility] [facility] [phone] WBC 12.7 10*3/uL H 3.6-11.2 RBC 4.19 [...] 0.00-0. 20 Aug 19, 2024 09:59 AM [facility] COMPREHENSIVE METABOLIC PANEL PLASMA Specimen Type: PLASMA Comment: No hemolysis noted. Ordering Provider: DANIEL GOMEZ Report Released Date/Time: Aug 16, 2024 03:45 PM Reporting Lab: [facility] [phone] Performing Lab: [facility] [phone] CREATININE 0.75 mg/dL 0.60-1.10 UREA NITROGEN 12.0 [...] 104.44 >60 Aug 19, 2024 09:59 AM [facility] PT/INR NEW (STL-MA) PLASMA Specimen Type: PLAS MA No comment entered. Ordering Provider: DANIEL GOMEZ Report Released Date/Time: Aug 16, 2024 03:45 PM Reporting Lab: [facility] [address] [place] [phone] Performing Lab: [facility] [phone] PROTIME 9.4 s 9.4-12.5 INR VALUE 0.8 {INR} Aug 19, 2024 09:59 AM [facility] ETHANOL SERUM/PLASMA (STL) PLASMA Specimen Typ e: PLASMA Comment: No hemolysis noted. Ordering Provider: DANIEL GOMEZ Report Released Date/Time: Aug 16, 2024 03:45 PM Reporting Lab: [facility] [facility] [phone] Performing Lab: [facility] [facility] [phone] ETHANOL SERUM/PLASMA (STL) <10.0 mg/dL 0 -10 Aug 19, 2024 09:59 AM [facility] GGT GAMMA-GT PLASMA Specimen Type: PLASM A No comment entered. Ordering Provider: DANIEL GOMEZ Report Released Date/Time: Aug 16, 2024 03:45 PM Reporting Lab: [facility] [address] [facility] [address] Performing Lab: [facility] [address] [facility] [address] GGT GAMMA-GT 14 [IU]/L 12-64 Aug 19, 2024 09:59 AM [facility] MAGNESIUM PLASMA Specimen Type: PLASM A Comment: No hemolysis noted. Ordering Provider: DANIEL GOMEZ Report Released Date/Time: Aug 16, 2024 03:45 PM Reporting Lab: [facility] [facility] [phone] Performing Lab: [facility] #[address] [facility] [phone] MAGNESIUM 2.1 mg/dL 1.6-2.6 Aug 19, 2024 09:59 AM [facility] CPK SERUM Specimen Type: SERUM No comment entered. Ordering Provider: DANIEL GOMEZ Report Released Date/Time: Aug 16, 2024 03:45 PM Reporting Lab: [facility] [facility] [phone] Performing Lab: [facility] [facility] [phone] CPK 37 U/L 29-168 Aug 19, 2024 09:59 AM [facility] HEP C Ab HCV Ab (STL) SERUM Specimen Type: SE RUM No comment entered. Ordering Provider: DANIEL GOMEZ Report Released Date/Time: Aug 16, 2024 03:45 PM Reporting Lab: [facility] [address] [facility] [address] Performing Lab: [address] [phone] HEP C Ab HCV Ab (STL) Nonreactive Nonrea ctive Aug 19, 2024 09:59 AM [facility] HIV COMBO FOURTH GENERATION (STL) SERUM Speci men Type: SERUM No comment entered. Ordering Provider: DANIEL GOMEZ Report Released Date/Time: Aug 16, 2024 03:45 PM Reporting Lab: [facility] [address] [facility] [phone] Performing Lab: [facility] [address] [facility] [phone] HIV COMBO FOURTH GENERATION (STL) Nonreactive Nonreactive Social History: Smoking Status (Most current) and Tobacco Use (All prior to encounter date) This section includes the most current, and the historical, smoking and tobacco- related health factors from the ID facility where the Encounter took place. Current Smoking Status This section includes the most current smoking, or tobacco-related health factor, from the ID facility where the Encounter took place. Date/Time Current Smoking Status Comment Nan ity Aug 19, 2024 10:33 AM VA-TOBACCO USE ALFONZO RY DAY CIGARETTES [facility] Tobacco Use History This section includes a history of the smoking, or tobacco-related health factors, that were collected on or before the date of the Encounter. The data comes from the ID facility where the Encounter took place. Date/Time Smoking Status/Tobacco Use Comment F acility Aug 19, 2024 10:33 AM VA-TOBACCO SCREEN FOLLOW-UP [facility] Aug 19, 2024 10:33 AM VA-TOBACCO USE ADVICE 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 Aug 19, 2024 10:33 AM VA-TOBACCO USE ALFONZO RY DAY CIGARETTES [facility] Aug 19, 2024 10:33 AM VA-TOBACCO USE MED YES [facility] Aug 19, 2024 10:33 AM VA-TOBACCO USE WI 30 MIN OF WAKEUP [facility] Encounter Notes: All associated encounter notes This section contains the clinical notes associated to the Encounter. Date/Time Encounter Note(s) Provider Source Sep 03, 2024 04:41 PM PSYCHIATRY NOTE: LOCAL TITLE: PSYCHIATRY [facility] STANDARD TITLE: PSYCHIATRY NOTE DATE OF NOTE: SEP 03, 2024@16:41 ENTRY DATE: SEP 03, 2024@16:41:34 AUTHOR: [facility] COSIGNER: URGENCY: STATUS: COMPLETED [facility] - MEDICATION MANAGEMENT Name..................SID CHRISTIANSON,JENNIFER FARRELL Age...................39 Sex...................FEMALE SSN...................[id number] Today's Date..........SEP 03, 2024 Service Connection....Service Connected: No ALLERGIES: BACTRIM, FLUCONAZOLE, CONCERTA, RISPERDAL, LAMICTAL OUTPATIENT MEDICATIONS: Active Outpatient Medications (excluding Supplies): Issue Date Status Last Fill Active Outpatient Medications Refills Expiration 1) ACETAMINOPHEN 500MG TAB Qty: 28 for 7 ACTIVE Issu:08-20-24 days Sig: TAKE ONE TABLET BY MOUTH Refills: 1 Last:08-20-24 FOUR TIMES A DAY NEEDED FOR PAIN Expr:08-21-25 CAUTION: DO NOT EXCEED 4000MG PER DAY ACETAMINOPHEN (APAP) FROM ALL MEDS. 2) ALBUTEROL 90MCG (CFC-F) 200D ORAL INHL ACTIVE Issu:08-20-24 Qty: 1 for 25 days Sig: INHALE 2 Refills: 0 Last:08-20-24 PUFFS BY ORAL INHALATION FOUR TIMES A Expr:09-19-24 DAY NEEDED FOR COPD SHAKE WELL. RINSE MOUTHPIECE FREQUENTLY TO PREVENT CLOGGING. 3) ATOMOXETINE 40MG CAP Qty: 10 for 10 ACTIVE Issu:08-30-24 days Sig: TAKE ONE CAPSULE BY MOUTH Refills: 2 Last:08-30-24 EVERY MORNING Expr:08-31-25 4) BUSPIRONE HCL 15MG TAB Qty: 15 for 10 ACTIVE Issu:08-30-24 days Sig: TAKE ONE-HALF TABLET BY Refills: 0 Last:08-30-24 MOUTH THREE TIMES A DAY DO NOT TAKE Expr:09-29-24 WITH GRAPEFRUIT JUICE. 5) ESCITALOPRAM OXALATE 20MG TAB Qty: 15 ACTIVE Issu:08-30-24 for 10 days Sig: TAKE ONE AND Refills: 2 Last:08-30-24 ONE-HALF TABLETS BY MOUTH EVERY Expr:08-31-25 MORNING 6) IBUPROFEN 800MG TAB Qty: 21 for 7 days ACTIVE Issu:08-20-24 Sig: TAKE ONE TABLET BY MOUTH THREE Refills: 2 Last:08-20-24 TIMES A DAY NEEDED FOR PAIN TAKE Expr:08-21-25 WITH FOOD. 7) LORATADINE 10MG TAB Qty: 10 for 10 days ACTIVE Issu:08-30-24 Sig: TAKE ONE TABLET BY MOUTH ONCE A Refills: 2 Last:08-30-24 DAY NEEDED ON EMPTY STOMACH Expr:08-31-25 8) MELATONIN 3MG CAP/TAB Qty: 10 for 10 ACTIVE Issu:08-30-24 days Sig: TAKE ONE CAP/TAB BY MOUTH Refills: 2 Last:08-30-24 AT BEDTIME NEEDED Expr:08-31-25 9) NALOXONE HCL 4MG/SPRAY SOLN NASAL SPRAY ACTIVE Issu:08-19-24 Qty: 2 for 5 days Sig: USE 1 SPRAY Refills: 0 Last:08-19-24 (4MG) INTO ONE NOSTRIL ONLY ONE-TIME Expr:09-18-24 FOR OPIOID OVERDOSE DO NOT PRIME NASAL SPRAY. SPRAY ONE DOSE IN ONE NOSTRIL, GIVE ADDITIONAL DOSE IF PATIENT DOES NOT START BREATHING WITHIN 2-3 MINUTES OR STOPS BREATHING AGAIN. CALL 911. IF USED, NOTIFY PROVIDER. 10) NICOTINE 14MG/24HR PATCH Qty: 28 for 28 ACTIVE Issu:05-22-24 days Sig: APPLY 1 PATCH TO SKIN SITE Refills: 3 Last:05-22-24 EVERY MORNING REMOVE OLD PATCH BEFORE Expr:05-23-25 APPLYING NEW ONE. ROTATE SITES. DO NOT SMOKE WHILE WEARING PATCH. 11) NICOTINE 21MG/24HR PATCH Qty: 28 for 28 ACTIVE Issu:08-20-24 days Sig: APPLY 1 PATCH TO SKIN SITE Refills: 0 Last:08-20-24 EVERY MORNING REMOVE OLD PATCH BEFORE Expr:09-19-24 APPLYING NEW ONE. ROTATE SITES. DO NOT SMOKE WHILE WEARING PATCH. 12) NICOTINE 4MG GUM Qty: 110 for 30 days ACTIVE Issu:08-20-24 Sig: CHEW 1 PIECE OF GUM BY MOUTH Refills: 0 Last:08-20-24 EVERY 4 HOURS NEEDED CHEW GUM UNTIL Expr:09-19-24 TINGLING SENSATION, THEN PARK THE GUM BETWEEN CHEEK AND GUM AREA. REPEAT (RE-CHEW) WHEN TINGLING STOPS. 13) NICOTINE 7MG/24HR PATCH Qty: 28 for 28 ACTIVE Issu:05-22-24 days Sig: APPLY 1 PATCH TO SKIN SITE Refills: 3 Last:05-22-24 EVERY MORNING REMOVE OLD PATCH BEFORE Expr:05-23-25 APPLYING NEW ONE. ROTATE SITES. DO NOT SMOKE WHILE WEARING PATCH. 14) OLANZAPINE 10MG TAB Qty: 5 for 10 days ACTIVE Issu:08-30-24 Sig: TAKE ONE-HALF TABLET BY MOUTH AT Refills: 0 Last:08-30-24 BEDTIME Expr:09-29-24 15) TRAZODONE HCL 100MG TAB Qty: 15 for 10 ACTIVE Issu:08-30-24 days Sig: TAKE ONE AND ONE-HALF Refills: 2 Last:08-30-24 TABLETS BY MOUTH AT BEDTIME Expr:08-31-25 16) TRIAMCINOLONE ACETONIDE 0.1% CREAM Qty: ACTIVE Issu:08-20-24 80 for 30 days Sig: APPLY LIGHTLY TO Refills: 0 Last:08-20-24 AFFECTED AREA(S) TWICE A DAY FOR Expr:09-19-24 PSORIASIS (EXTERNAL USE ONLY) Issue Date Status Last Fill Pending Outpatient Medications Refills Expiration 1) BUPROPION HCL 300MG 24HR SA TAB Qty: 7 PENDING Sig: TAKE ONE TABLET BY MOUTH ONCE A Refills: 0 DAY SWALLOW WHOLE - DO NOT CRUSH OR CHEW. Start Date Active Non-VA Medications Refills Expiration 1) Non-VA TRIAMCINOLONE OINT,TOP Sig: .025 ACTIVE TO AFFECTED AREA(S) ONCE A DAY 18 Total Medications PROBLEM LIST: 1) Cannabis abuse 2) Cannabis dependence, continuous 3) Admits alcohol use 4) Cocaine user 5) Opioid dependence 6) Tobacco use 7) Insomnia 8) Anxiety VITAL SIGNS: Pulse.................101 (08/31/2024 07:28) Temperature...........98.1 F [36.7 C] (08/22/2024 06:56) Blood Pressure........116/77 (08/31/2024 07:28) Pain..................0 (08/22/2024 06:56) Weight................ No patient weight history to display. LAB VALUES: CBC WBC 12.7 H 10*3/uL 08/19/2024 10:00 RBC [...] BASOPHILS, ABSOLUTE 0.09 10*3/uL 08/19/2024 10:00 CHEM 7 SODIUM 139 mEq/L 08/19/2024 09:59 POTASSIUM 4.2 mEq/L 08/19/2024 09:59 CHLORIDE 108 H mEq/L 08/19/2024 09:59 UREA NITROGEN 12.0 mg/dL 08/19/2024 09:59 CREATININE 0.75 mg/dL 08/19/2024 09:59 CALCIUM 8.8 mg/dL 08/19/2024 09:59 CARBON DIOXIDE 23 mEq/L 08/19/2024 09:59 GLUCOSE 99 mg/dL 08/19/2024 09:59 EGFR (CKD-EPI 2020) 104.44 08/19/2024 09:59 HEPATIC PANEL No data available TRIGLYCERIDES...____ CHOLESTEROL.....No CHOLESTEROL EO data found TSH.............No TSH (2YR) EO data found LITHIUM.........____ VALPROIC ACID...____ DIAGNOSIS BEING TREATED THIS VISIT: depression, unspecified; anxiety, unspecified; suicidal ideation ANY COMPLAINTS/PROBLEMS.......Ye s Provider approached by AT Mikayla and Dr. Woods; patient relayed concerns of suicidal ideation yesterday and was inquiring earlier with the nurse about medication changes. Patient reported that she had suicidal ideation yesterday after being triggered about going home, stating that she felt like she was going back to a shitty life. Patient states she has not had any suicidal ideation today and can articulate reasons for living - my kids, getting VA benefits to get a car, and making life better for kids. Patient was asked if she felt she needed to possibly go to inpatient for medication changes and she strongly stated no, she feels like she is safe in [facility]. Patient reports still struggling with anxiety and depression though and rates both at 10/10 with 10 being the worst. Patient reports symptoms of feeling tired, feels like mood is unstable, motivation is still not there, and still hard to get out of bed. Patient reports sleeping well but still waking up with my shirt wet. Patient has had multiple medication changes since admission: 08/19/24 (admission): - Will start: - Prazosin 1mg at bedtime for nightmares. - Bupropion XL 150mg daily for depression. - Nicotine gum and patches for nicotine replacement therapy. - Will continue: - Atomoxetine 40mg daily for ADHD. - Escitalopram 30mg daily for depression/anxiety. 08/21/24: - Will start: - Hydroxyzine 25mg TID PRN for anxiety, patient restarted on Bupropion XL on admission. - Trazodone 50mg at bedtime PRN for insomnia (sleep maintenance). 08/23/24: Increase Trazodone to 150 mg HS for to further benefit sleep maintenance Increase Prazosin to 2 mg HS to further benefit nightmares Increase Hydroxyzine to 50 mg HS PRN for sleep initiation Start Melatonin 3 mg HS PRN for sleep initiation Increase Escitalopram to 20 mg to further benefit anxiety 08/24/24: - Discontinue prazosin due to side effects of dizziness and headache, ineffective at dosing of 2mg at bedtime. - Will continue lexapro, bupropion, trazodone, hydroxyzine, and melatonin at current dosing. 08/26/24: - Discontinue Hydroyxzine and instead start Buspar 5 mg TID for anxiety. - Start on Olanzapine 5 mg qhs for mood/anxiety/sleep. - Continue Escitalopram 30 mg q am and Bupropion XL 150 mg q am for anxiety/depression. - Continue Trazodone 150 mg qhs for sleep; continue Melatonin 3 mg qhs PRN for sleep. - Continue Atomoxetine 40 mg q am for ADHD. ANY MEDICATION SIDE EFFECT....No APPETITE.................... ..Good SLEEP....................... ..Good/fair Mental Status Exam: Alert, oriented, NAD, appropriately groomed Concentration/attention: attends to interview Motor: steady gait - no tics/tremors Speech: nml rate, prosody Thought Process: linear, goal directed Thought Content: denies SI/HI/psychosis Mood: depressed Affect: congruent with mood, appropriate for situation Judgment & Insight: fair Intellectual Ability: appears average SUPPORTIVE PSYCHOTHERAPY......Yes TREATMENT PLAN: - Will increase Bupropion XL to 300mg daily. Patient to take extra dose of Bupropion XL 150mg today as she already took dose this morning. - Discussed with patient, that medications takes time to work and she will take time to adjust, the more we change medications, the more she has to adjust. Discussed talking to staff about feelings and relaying to us when things are bothering her. - Discussed SI yesterday with nursing staff, they are aware and will check in more frequently with patient. - Will follow-up with patient tomorrow to see how she is doing. /es/ [facility] Registered Nurse - Mental Health Signed: 09/03/2024 16:59 Receipt Acknowledged By: 09/04/2024 08:57 /es/ Vitaliy Youssef, Ph.D. Psychologist, Oncology Technician [address] 09/04/2024 07:41 /es/ STEPHANIE STANLEY Registered Nurse, [address] 09/06/2024 08:17 /es/ ANTONIETTA COKER RN REGISTERED NURSE 09/13/2024 07:27 /es/ HUNTER TOLBERT RN DERMATOLOGY Registered Nurse, [address] 09/04/2024 10:00 /es/ TOMI ROSAS Addiction Therapist, [address] / [facility] 09/04/2024 06:49 /es/ Dominguez Moscoso MD MPH. Staff Physician, Psychiatry 09/04/2024 08:00 /es/ MOISÉS TRAN Psychiatric Nurse Practitioner, Inpatient 09/05/2024 20:16 /es/ SHAHZAD AGUSTIN RN REGISTERED NURSE 09/03/2024 18:07 /es/ SURYA CONROYN ROBYN RN REGISTERED NURSE 12/19/2024 22:27 /es/ Rosalina Roberts L.P.N LICENSED PRACTICAL NURSE 09/03/2024 20:47 /es/ OLIVER SOFIA,RN Registered Nurse, [address] 09/03/2024 20:03 /es/ SHELBY CHAIDEZ Licensed Practical Nurse 09/03/2024 23:59 /es/ RUDDY OSPINA RN, BSN REGISTERED NURSE [facility] Sep 03, 2024 04:23 PM SUICIDE PREVENTION RISK ASSESSMENT SCREENING NOTE: LOCAL TITLE: SUICIDE RISK EVALUATION - COMPREHENSIVE STANDARD TITLE: SUICIDE PREVENTION RISK ASSESSMENT SCREENING NOT DATE OF NOTE: SEP 03, 2024@16:23 ENTRY DATE: SEP 03, 2024@16:23:17 AUTHOR: [facility] COSIGNER: URGENCY: STATUS: COMPLETED Comprehensive Suicide Risk Evaluation --------- This is an update to an existing suicide risk evaluation. The validity of the information contained within this evaluation is not in question. Suicidal Ideation The most recent thoughts of engaging in suicide-related behavior were within the past 30 days. SI without plan yesterday after being triggered about going home. The did not have suicidal intent at the time of the most recent ideation. The did not have a suicide plan at the time of the most recent ideation. It is not known or unclear if the most recent suicidal ideation was the most severe ideation within the last 30 days. The does have access to lethal means (firearms). Number of firearms and storage practice: father owns gun store The does not have access to other lethal means. Suicidal Behavior The [facility] has not made any suicide attempts since the last ID Comprehensive Suicide Risk Evaluation was completed. [facility] did not report any prior preparatory behaviors that have not been previously documented. Warning Signs The following warning signs are currently present for the : Anxiety Sleep disturbance Other warning signs not listed or comments: Comment: depressed, unmotivated, hard to get out of bed Additional past warning signs include: Risk Factors Access to lethal means History of mental health hospitalization Psychological conditions or symptoms History of non-suicidal self-directed violence Medical conditions and health-related problems Preexisting risk factors Protective Factors and Reasons for Living Access to and engagement with mental health care Reports motivation for mental health treatment Has meaningful family relationships Has child-related responsibilities or responsibilities for another person Hope for the future Strong desire to live Clinical Impressions: The clinical impression of acute risk is Low ACUTE Risk. As evidenced by: Denies SI today, no current intent or recent preparatory behaviors. Patient able to articulate reasons for living - my kids, getting VA benefits, making better life for kids. Amenable to medication change. The clinical impression of chronic risk is Intermediate CHRONIC Risk. As evidenced by: SI yesterday, none today, articulates reasons for living, amenable to medication changes. No hx of suicidal behaviors or suicide attempts. Risk factors - hx of self-harming behaviors, access to firearms, ESTELA, hx of trauma, PTSD, borderline personality disorder. Protective factors - meaningful family relationships, child responsibilities, states I would be to chicken to do it. Suicide Risk Mitigation Plan: This treatment and care plan was developed in collaboration with the . This treatment and care plan was developed in collaboration with additional healthcare providers. List: nursingMikayla Risk Mitigation Plan: Strategies for Managing Risk if the [facility] is Currently in/Transferring to RESIDENTIAL Treatment: Suicide Power Distribution Engineer was not alerted for consideration of a Patient Record Flag Category I High Risk for Suicide. Other Comment: Discussed with nursing to follow-up with patient more frequently and assess how she is doing. Discussed with patient to follow-up with nursing or staff if suicidal feelings arise again. Patient took extra dose of Bupropion XL for increase of medication to 300mg daily. Re-evaluation: Due to the dynamic nature of some warning signs, risk and protective factors, suicide risk should be routinely re-evaluated. These risk management strategies were chosen to address 's current presentation and feasible treatment options within the system of care. This plan should be re-evaluated over time. /sanjeev/ [facility] Registered Nurse - Mental Health Signed: 09/03/2024 16:40 [facility]
--- OUTSIDE RECORDS SUMMARY | 2025-02-23 10:58 | XMS_ITS ---
[facility] Encounter Summary Created on: February 23, 2025 STACIE SHAUNA FARRELL : 1985 Sex: Female Author Name Department of [facility] ([place] Organization [facility] of [facility] ([place] Address [address] [place] [address] Support Name Relationship Address Phone FUAD CHRISTINE [...] MEDIC AID Aug 02, 2015 MEDICAI D [id number] [phone] STACIE AYESHAUNA PATIENT [facility] (WNR) MEDICAID MEDIC AID [facility] (WNR) Dec 01, 2023 MEDICAI D [id number] STACIE AYESHAUNA PATIENT Selected Encounter This section includes the information on record at [place] for the Encounter. Date/Time Encounter Type Encounter Description Reason Provider Source Aug 19, 2024 11:01 AM Inpatient Visit HOSPITALIZATION ICD-10-CM G47.00 Insomnia, unspecified SUBBAIAH,MADH URI IHE Encounter Template Text not used by [place] Assessments - Encounter Diagnoses This section includes the primary and secondary diagnoses documented for the Encounter. Date/Time Primary/Secondary Diagnosis Diagnosis Name Provider Source Sep 09, 2024 01:29 PM Diagnosis for Length of Stay Cannabis dependence, uncomplicated [facility] Sep 09, 2024 01:29 PM SECONDARY Alcohol dependence, uncomplicated [facility] Sep 09, 2024 01:29 PM SECONDARY Allergic rhinitis, unspecified [facility] Sep 09, 2024 01:29 PM SECONDARY Anxiety disorder, unspecified [facility] Sep 09, 2024 01:29 PM SECONDARY Attention-deficit hyperactivity disorder, unspecified type [facility] Sep 09, 2024 01:29 PM SECONDARY Depression, unspecified [facility] Sep 09, 2024 01:29 PM SECONDARY Insomnia, unspecified [facility] Sep 09, 2024 01:29 PM SECONDARY Nicotine dependence, cigarettes, uncomplicated [facility] Sep 09, 2024 01:29 PM SECONDARY Nightmare disorder [facility] Sep 09, 2024 01:29 PM SECONDARY Opioid abuse, uncomplicated [facility] Sep 09, 2024 01:29 PM SECONDARY Post-traumatic stress disorder, unspecified [facility] Sep 09, 2024 01:29 PM SECONDARY Psoriasis, unspecified [facility] Plan of Treatment: Future Appointments (+ 6 months) and Future Tests (+/- 45 days) The Plan of Treatment section includes future care activities for the patient from all [place] [facility]. This section includes future appointments and future orders which are active, pending or scheduled. Future Appointments This section includes appointments that were scheduled to occur 6 months from the date of the Encounter, up to a maximum of 20 appointments. The data comes from all [facility]. Appointment Date/Time Appointment Type Appointme nt Facility Name Sep 10, 2024 12:30 PM AMBULATORY - PSYCHIATRY [facility] Sep 12, 2024 06:00 PM AMBULATORY - PSYCHIATRY [facility] Sep 17, 2024 06:00 PM AMBULATORY - PSYCHIATRY [facility] Sep 19, 2024 06:00 PM AMBULATORY - PSYCHIATRY [facility] Sep 26, 2024 06:00 PM AMBULATORY - PSYCHIATRY [facility] Oct 01, 2024 02:00 PM AMBULATORY - NONE [facility] Oct 09, 2024 03:00 PM AMBULATORY - MEDICINE [facility] Oct 16, 2024 01:00 PM AMBULATORY - PSYCHIATRY [facility] Oct 30, 2024 01:00 PM AMBULATORY - PSYCHIATRY [facility] Nov 27, 2024 01:00 PM AMBULATORY - PSYCHIATRY [facility] Dec 04, 2024 01:00 PM AMBULATORY - PSYCHIATRY [facility] Dec 11, 2024 01:00 PM AMBULATORY - PSYCHIATRY [facility] Dec 18, 2024 01:00 PM AMBULATORY - PSYCHIATRY [facility] Dec 25, 2024 01:00 PM AMBULATORY - PSYCHIATRY [facility] February 05, 2025 09:30 AM AMBULATORY - PSYCHIATRY [facility] Lab Results: +/- 30 days of the encounter This section includes the Chemistry and Hematology Lab Results on record with [facility] for the patient. Radiology Reports and Pathology Reports are provided separately, in subsequent sections. Lab Results This section contains the Chemistry/Hematology Results that were resulted 30 days before or 30 daysafter the date of the Encounter. Date/Time Source Result Type Result - Unit Interpretation Reference Range Specimen Type Comment Sep 03, 2024 12:00 PM [facility] URINE DRUG SCREEN (STL) URINE Specimen Type: [...] Sep 02, 2024 08:27 PM Reporting Lab: [facility] [facility] [address] Performing Lab: [facility] [phone] ETHANOL <10.0 mg/dL 0-9 AMPHET/METHAMPHETAMINE Negative ng/mL COCAINE METABOLITES Negative ng/mL BENZODIAZEPINES (STL) Negative ng/mL CANNABINOIDS POSITIVE ng/mL METHADONE Negative ng/mL OPIATES Negative ng/mL CREATININE URINE/OTHERS 110.1 mg/dL H 47.0 -110.0 OXYCODONE (XOILE-VBX-SQ) Negative ng/mL BUPRENORPHINE (STL-PB-MA) Negative ng/mL FENTANYL (STL-PB) Negative ng/mL Aug 25, 2024 02:03 PM [facility] URINE DRUG SCREEN (STL) URINE Specimen Type: [...] Aug 24, 2024 07:24 PM Reporting Lab: [facility] [address] [facility] [address] Performing Lab: [place] [id number] [facility] [address] ETHANOL Negative mg/dL 0-20 AMPHET/METHAMPHETAMINE Negative ng/mL COCAINE METABOLITES Negative ng/mL BENZODIAZEPINES (STL) Negative ng/mL CANNABINOIDS POSITIVE ng/mL METHADONE Negative ng/mL OPIATES Negative ng/mL CREATININE URINE/OTHERS 39.0 mg/dL L 47-11 0 OXYCODONE (DYSTL-XSC-JB) Negative ng/mL BUPRENORPHINE (STL-PB-MA) Negative ng/mL FENTANYL (STL-PB) Negative ng/mL Aug 20, 2024 07:13 AM [facility] URINALYSIS W/ CX REFLEX (STL-PB) URINE Specim en Type: URINE No comment entered. Ordering Provider: DANIEL GOMEZ Report Released Date/Time: Aug 19, 2024 11:04 AM Reporting Lab: [facility] [address] Performing Lab: [facility] [facility] [address] URINE COLOR Yellow Yellow U.BILIRUBIN Negative mg/dL [...] 1.028 Aug 19, 2024 10:08 AM [facility] URINALYSIS (STL-PB) URINE Specimen Type: URIN E No comment entered. Ordering Provider: DANIEL GOMEZ Report Released Date/Time: Aug 16, 2024 03:45 PM Reporting Lab: [facility] [address] [place] [address] Performing Lab: [facility] [place] [address] URINE COLOR Yellow Yellow U.BILIRUBIN Negative mg/dL [...] Aug 19, 2024 10:08 AM [facility] TEST URINE (MA-STL) URINE Specimen Type: URINE No comment entered. Ordering Provider: DANIEL GOMEZ Report Released Date/Time: Aug 16, 2024 03:45 PM Reporting Lab: [facility] [place] [address] Performing Lab: [facility] [address] [place] [address] Qualitative Test NEG NEGAT URBAN Aug 19, 2024 10:08 AM [facility] URINE DRUG SCREEN (STL) URINE Specimen Type: [...] Aug 16, 2024 03:45 PM Reporting Lab: [facility] [facility] [address] Performing Lab: [facility] [address] [facility] [address] ETHANOL Negative mg/dL 0-20 AMPHET/METHAMPHETAMINE Negative ng/mL COCAINE METABOLITES Negative ng/mL BENZODIAZEPINES (STL) Negative ng/mL CANNABINOIDS POSITIVE ng/mL METHADONE Negative ng/mL OPIATES POSITIVE ng/mL CREATININE URINE/OTHERS 266.1 mg/dL H 47.0 -110.0 OXYCODONE (YNBFB-QUM-QO) Negative ng/mL BUPRENORPHINE (STL-PB-MA) Negative ng/mL FENTANYL (STL-PB) Negative ng/mL Aug 19, 2024 10:00 AM [facility] CBC BLOOD Specimen Type: BLOOD No comment entered. Ordering Provider: DANIEL GOMEZ Report Released Date/Time: Aug 16, 2024 03:45 PM Reporting Lab: [facility] [facility] [address] Performing Lab: [facility] [facility] [address] WBC 12.7 10*3/uL H 3.6-11.2 RBC 4.19 [...] 0.00-0. 20 Aug 19, 2024 09:59 AM [facility] PT/INR NEW (STL-MA) PLASMA Specimen Type: PLAS MA No comment entered. Ordering Provider: DANIEL GOMEZ Report Released Date/Time: Aug 16, 2024 03:45 PM Reporting Lab: [facility] [address] [place] [address] Performing Lab: [facility] [address] [place] [address] PROTIME 9.4 s 9.4-12.5 INR VALUE 0.8 {INR} Aug 19, 2024 09:59 AM [facility] COMPREHENSIVE METABOLIC PANEL PLASMA Specimen Type: PLASMA Comment: No hemolysis noted. Ordering Provider: DANIEL GOMEZ Report Released Date/Time: Aug 16, 2024 03:45 PM Reporting Lab: [facility] [place] [address] Performing Lab: [facility] [address] [place] [address] CREATININE 0.75 mg/dL 0.60-1.10 UREA NITROGEN 12.0 [...] >60 Aug 19, 2024 09:59 AM [facility] ETHANOL SERUM/PLASMA (STL) PLASMA Specimen Typ e: PLASMA Comment: No hemolysis noted. Ordering Provider: DANIEL GOMEZ Report Released Date/Time: Aug 16, 2024 03:45 PM Reporting Lab: [facility] [facility] [address] Performing Lab: [facility] [facility] [address] ETHANOL SERUM/PLASMA (STL) <10.0 mg/dL 0 -10 Aug 19, 2024 09:59 AM [facility] GGT GAMMA-GT PLASMA Specimen Type: PLASM A No comment entered. Ordering Provider: DANIEL GOMEZ Report Released Date/Time: Aug 16, 2024 03:45 PM Reporting Lab: [facility] [address] [facility] [address] Performing Lab: [facility] [address] [facility] [address] GGT GAMMA-GT 14 [IU]/L 12-64 Aug 19, 2024 09:59 AM [facility] MAGNESIUM PLASMA Specimen Type: PLASM A Comment: No hemolysis noted. Ordering Provider: DANIEL GOMEZ Report Released Date/Time: Aug 16, 2024 03:45 PM Reporting Lab: [facility] [address] [facility] [address] Performing Lab: [facility] [address] [facility] [address] MAGNESIUM 2.1 mg/dL 1.6-2.6 Aug 19, 2024 09:59 AM [facility] CPK SERUM Specimen Type: SERUM No comment entered. Ordering Provider: DANIEL GOMEZ Report Released Date/Time: Aug 16, 2024 03:45 PM Reporting Lab: [facility] [address] [facility] [address] Performing Lab: [facility] [address] [facility] [address] CPK 37 U/L 29-168 Aug 19, 2024 09:59 AM [facility] HEP C Ab HCV Ab (STL) SERUM Specimen Type: SE RUM No comment entered. Ordering Provider: DANIEL GOMEZ Report Released Date/Time: Aug 16, 2024 03:45 PM Reporting Lab: [facility] [address] [facility] [address] Performing Lab: [facility] [address] [facility] [address] HEP C Ab HCV Ab (STL) Nonreactive Nonrea ctive Aug 19, 2024 09:59 AM [facility] HIV COMBO FOURTH GENERATION (STL) SERUM Speci men Type: SERUM No comment entered. Ordering Provider: DANIEL GOMEZ Report Released Date/Time: Aug 16, 2024 03:45 PM Reporting Lab: [facility] [address] [facility] [address] Performing Lab: [facility] [address] [facility] [address] HIV COMBO FOURTH GENERATION (STL) Nonreactive Nonreactive Vital Signs: All taken on the encounter date This section contains inpatient and outpatient Vital Signs collected on the date of the Encounter. Date/Time Temperature Pulse Blood Pressure Respiratory Rate SP02 Pain Height Weight Body Mass Index Source Aug 19, 2024 11:54 AM 0 [facility] Aug 19, 2024 11:08 AM 97 86 122/85 18 98 0 [facility] Social History: Smoking Status (Most current) and Tobacco Use (All prior to encounter date) This section includes the most current, and the historical, smoking and tobacco- related health factors from the [place] facility where the Encounter took place. Current Smoking Status This section includes the most current smoking, or tobacco-related health factor, from the [place] facility where the Encounter took place. Date/Time Current Smoking Status Comment Facil garcía Aug 19, 2024 10:33 AM VA-TOBACCO USE ALFONZO RY DAY CIGARETTES [facility] Tobacco Use History This section includes a history of the smoking, or tobacco-related health factors, that were collected on or before the date of the Encounter. The data comes from the [place] facility where the Encounter took place. Date/Time Smoking Status/Tobacco Use Comment F acility Aug 19, 2024 10:33 AM VA-TOBACCO SCREEN FOLLOW-UP [facility] Aug 19, 2024 10:33 AM VA-TOBACCO USE ADVICE [facility] Aug 19, 2024 10:33 AM VA-TOBACCO USE INTERPRETER AND TRANSLATOR NO [facility] Aug 19, 2024 10:33 AM VA-TOBACCO USE ALFONZO RY DAY CIGARETTES [facility] Aug 19, 2024 10:33 AM VA-TOBACCO USE MED YES [facility] Aug 19, 2024 10:33 AM VA-TOBACCO USE WI 30 MIN OF WAKEUP [facility] Encounter Notes: All associated encounter notes This section contains the clinical notes associated to the Encounter. Date/Time Encounter Note(s) Provider Source Sep 09, 2024 01:30 PM ADMINISTRATIVE NOTE: LOCAL TITLE: ADMINISTRATIVE STL STANDARD TITLE: ADMINISTRATIVE NOTE DATE OF NOTE: SEP 09, 2024@13:30 ENTRY DATE: SEP 09, 2024@13:30:47 AUTHOR: CHARLIE BAI EXP COSIGNER: URGENCY: STATUS: COMPLETED PATIENT DISCHARGED FROM INPATIENT [facility] WITH THE FOLLOWING FOLLOW UP APPOINTMENTS PER DISCHARGE ORDER. MH: 09/10/24 12:30 pm [facility] PCP: 10/09/24 3:00 pm [facility] E13 PCP /es/ CHARLIE BAI ADVANCED CASING TIER Signed: 09/09/2024 13:31 CHARLIE BAI [facility] Sep 09, 2024 01:29 PM DISCHARGE SUMMARY: LOCAL TITLE: Discharge Summary STANDARD TITLE: DISCHARGE SUMMARY DICT DATE: SEP 09, 2024@13:00 ENTRY DATE: SEP 09, 2024@13:00:45 DICTATED BY: [facility] ATTENDING: DOMINGUEZ SHAIKH URGENCY: routine STATUS: COMPLETED Discharge date: 09/09/2024 PRINCIPAL DIAGNOSIS: Cannabis use disorder, severe SECONDARY DIAGNOSES: Significant Medical Problems PRESENT on Admission: Opioid use disorder, mild; alcohol use, rule out dependece; nicotine dependence; Post Traumatic Stress Disorder with nightmares; Attention-Deficit/Hyperacti vity Disorder, unspecified; depression, unspecified; anxiety, unspecified; psoriasis; allergic rhinitis; insomnia, unspecified. Significant Medical Problems NOT PRESENT on Admission: None. OPERATIVE/INVASIVE PROCEDURES: Not applicable ATTENDING PHYSICIAN: Dominguez Shaikh M.D. BRIEF HISTORY AND ESSENTIAL PHYSICAL FINDINGS: Shauna Oliva is a 39 y/o , domiciled, [place], employed female [employer] with PPH of cannabis use disorder, opioid use disorder, nicotine dependence, PTSD with nightmares, ADHD, insomnia, depression, and anxiety with PMH significant for psoriais presented to [facility] cannabis dependence. Patient denies any previous admissions to [facility] or private rehabilitations. Patient describes current mental health as unstable and current mood as irritable. Patient denies SI or history of SI/SB/SA but does endorse a history of self-harm per cutting. Patient reports the last time she cut was about 4 months ago. Patient endorses symptoms of depression with depressed mood, decreased appetite, anhedonia, worthlessness, guilt, decreased sleep, low energy, easily fatigued, and decreased concentration. Patient rates depression at 8-9/10 with 10 being the worst. Patient endorses symptoms of anxiety with excessive worry, difficulty controlling worry, restlessness, feeling on edge, mind going blank, and irritability. Patient rates anxiety 8-9/10. Patient endorses symptoms of PTSD with negative emotional states, diminished interest in significant activities, feeling detached from others, irritable/anger outburst, recklessness, social isolation, poor concentration, derealization, flashbacks, nightmares. Patient reports nightmares are nightly and disrupt her sleep. Patient denies HI or AVH, or history of. Patient reports that she is sleeping bad and takes at least 45 minutes to get to sleep, wakes up every 3-4 hours, and states she usually can sleep a total of 6 hours. Denies snoring with no documented history of JENI. Patient reports that she has a decreased appetite, will binge eat; denies recent weight loss or weight gain. Patient endorses symptoms of racing thoughts, distractibility, increase in goal directed activities, and high risk activities. Denies hx of manic/hypomanic episodes. Patient states she does have a family hx of bipolar though. Most of symptoms could also be explained by ADHD diagnosis. Substance use hx: Cannabis: smokes 4-6 grams daily per flower and vaping. Denies the use of dabs. Patient states cannabis is all she thinks about, is consuming her life, and she can't even watch a movie with her children because she is so distracted by it. First use was at 16, became a problem while in the [employer] around 2007, last use was this morning. Longest sobriety is 1 week. Consequences of use: money, mind consuming. Goal is abstinence. Alcohol: drinks 4-5 beers, 1-2 times a month. States she is a social drinker but endorses drinking to get drunk. First use at age 14, doesn't feel like alcohol is a problem for her, last time was last night. Goal is abstinence. Opioid: takes vicodin, 1-2 tabs, 1-2 times a month. They are prescribed but to somebody else. Patient doesn't feel like opiates are a problem for her. Goal is abstinence. Nicotine: 1/2 ppd, approved nicotine patches and gum for NRT. Goal is abstinence. UDS on 08/19/24: positive for cannabinoids and opiates. BAL <10 mg/dL. Patient denies the use of any other intentional/recreational illicit drugs. HOSPITAL COURSE: The was enrolled in a 21-day residential program consisting of individual case management and counseling, group psychotherapy, psychoeducational groups, 12 step meetings, and recreation therapy. The was assessed and allowed to self-administer 's prescribed medications. The was subject to random urine drug screenings and alcohol breathalyzer screenings during this residential stay. During this residential rehabilitation stay the : Did not report suicidal ideation or display behavior indicative of danger to self, did not report homicidal ideation or engage in aggressive/threatening behavior indicative of danger to others. Medication changes made during admission: 08/19/24 (admission): - Will start: - [...] Atomoxetine 40 mg q am for ADHD. 09/03/24: - Will increase Bupropion XL to 300mg daily. Patient was educated and offered medically assisted treatment, patient approved nicotine patches and gum for NRT. CONDITION ON DISCHARGE: Stable with improved insight into substance abuse issues. FOLLOW-UP: 09/10/2024 12:30 [facility] INPATIENT APPOINTMENT 09/12/2024 18:00 [facility] PM INPATIENT APPOINTMENT 09/17/2024 18:00 [facility] PM INPATIENT APPOINTMENT 09/19/2024 18:00 [facility] PM INPATIENT APPOINTMENT 09/24/2024 18:00 [facility] PM INPATIENT APPOINTMENT 09/26/2024 18:00 [facility] PM INPATIENT APPOINTMENT 10/01/2024 11:00 [facility] AM INPATIENT APPOINTMENT 10/01/2024 12:00 [facility]ULTRASOUND B PM INPATIENT APPOINTMENT 10/01/2024 14:00 [facility] BLDG 1 INPATIENT APPOINTMENT 10/01/2024 18:00 [facility] PM INPATIENT APPOINTMENT 10/03/2024 18:00 [facility] PM INPATIENT APPOINTMENT 10/08/2024 18:00 [facility] PM INPATIENT APPOINTMENT 10/09/2024 15:00 [facility] E13 PCP INPATIENT APPOINTMENT NON-VA FOLLOW-UP CARE: Not Applicable DISCHARGE MEDICATIONS: Active Outpatient Medications (including Supplies): Active [...] EMPTY STOMACH 9) MED ORGANIZER 7DAY/4 SLOT APEX#[id number] USE PILLBOX ACTIVE ONE-TIME FOR MEDICATION STORAGE/PLANNING [...] AREA(S) ONCE A DAY 20 Total Medications ALLERGIES OR DRUG SENSITIVITIES: BACTRIM, FLUCONAZOLE, CONCERTA, RISPERDAL, LAMICTAL ACTIVITY: No restrictions. INFORMATION REGARDING CONDITION OR PROPER HOME AND/OR WOUND CARE: Not Applicable RETURN TO WORK: No restrictions. 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 [ ] The patient is not competent in the [facility] sense of the word. TOTAL TIME SPENT FOR FINAL HOSPITAL DISCHARGE: 45 minutes. Verified By MRT/JONATHAN /sanjeev/ [facility] Advanced Practice Registered Nurse - Mental Health Signed: 09/09/2024 13:53 /sanjeev/ Dominguez Shaikh MD MPH. Staff Physician, Psychiatry Cosigned: 09/09/2024 15:37 [facility] Sep 09, 2024 11:26 AM NURSING TRANSFER SUMMARIZATION DISCHARGE NOTE: LOCAL TITLE: RADAMES DISCHARGE/TRANSFER SUMMARY ST STANDARD TITLE: NURSING TRANSFER SUMMARIZATION DISCHARGE NOTE DATE OF NOTE: SEP 09, 2024@11:26 ENTRY DATE: SEP 09, 2024@11:26:42 AUTHOR: SURYA PEDRO EXP COSIGNER: URGENCY: STATUS: COMPLETED DISCHARGE - TRANSFER SUMMARY Action: Discharge Diagnosis: Last Admission: 08/19/24 11:01:11 am Admit Dx: POLYSUBSTANCE DEPENDENCE Age: 39 Allergies: BACTRIM, FLUCONAZOLE, CONCERTA, RISPERDAL, LAMICTAL Patient Condition: Stable Vital Signs: Temperature: 98.1 F [36.7 C] (08/22/2024 06:56) Pulse: 101 (08/31/2024 07:28) Respiration: 20 (08/22/2024 06:56) Blood Pressure: 116/77 (08/31/2024 07:28) Pain: 0 (08/22/2024 06:56) Fall Risk Assessment Score: Fall Risk Level: No Risk Isolation: No Precautions: None Orientation: x3 Hygiene: Self Care Nutrition: Regular diet Special needs: Assistance: Independent Bowel/Bladder: Date of last bowel movement: Defecation: Normal Able to void: YES Continent: YES Catheter: No Wound / Skin Condition: UNABLE TO INSPECT/ASSESS SKIN/WOUND/INCISION WITHIN 24 HOURS OF ADMISSION, DAILY, OR REQUIRED: Other: SARRTP discharge STANDARD OF CARE / PRACTICE IMPLEMENTED: Indicate status at Discharge/Transfer: Stabilized Flu Shot Given: No Patient refused Pneumococcal Shot Given: No Patient refused MRSA Discharge Swab Done: No Reason: [facility] Discharged/Transfered to: Other: Comment: family Accompanied by (Name & Relationship): family Next of Kin notified: NO Discharge/Transfer Mode: Ambulatory Discharged/Transferred with: Written Discharge Instructions Medications Return Appointments [facility] was informed of the date and time of his/her follow-up mental health appointments: YES The was provided the opportunity to cancel or change his/her scheduled follow-up mental health appointments: YES The was educated about what to do and who to contact should he/she need to cancel the follow-up mental health appointment: YES Clothing / Valuables returned: Yes Describe: pactient packed her room Prosthetics with patient: Dentures/Partials with patient: None Glasses with patient: NA Other: NA Printed MD Instruction sheet with medication list reviewed and given to the patient/caregiver. Patient/Caregiver verifies medication list is complete and accurate. Patient/Caregiver appeared ready for instruction (good eye contact, appropriate questions, active participation, etc) Person(s) who received education: Patient Education Topic/Teaching Needs: Medication to be pciked up by patient from RX Follow-up Instructions written Methods used Included: A copy of the Discharge Instructions Health Summary given to patient/caregiver and signed by patient/guardian. Patient's medications were reviewed and reconciled by discharge team. Teaching outcomes: Good level of understanding /sanjeev/ SURYA HERRERAA RN REGISTERED NURSE Signed: 09/09/2024 12:53 SURYA PEDRO [facility] Sep 06, 2024 08:03 AM MENTAL HEALTH NURSING NOTE: LOCAL TITLE: [facility] [place] MENTAL HEALTH HAZARDOUS ITEM ROOM SEARCH [facility] STANDARD TITLE: MENTAL HEALTH NURSING NOTE DATE OF NOTE: SEP 06, 2024@08:03 ENTRY DATE: SEP 06, 2024@08:03:08 AUTHOR: SURYA PEDRO EXP COSIGNER: URGENCY: STATUS: COMPLETED Mental Health Hazardous Item Room Search The following areas were checked and searched. Bed/bedframe Under each mattress. All Linen Pillow(s) Night stand(s) Book shelve(s) Floor area Bathroom floor Area surrounding toilet [facility] Paper Roll Sink and surrounding area Sink drain Shower floor. Shower drain Trash container Window Sill/Door Frame(s). All light fixtures Water sprinkler(s) All ceiling vents Wheelchair/other equipment. On this date Sep@08:00,a comprehensive room search by random selection was conducted to identify any hazardous or unapproved items in this 's room. This room search was conducted in order to protect patient rights, ensure the safety of patients and others and maintain a safe and therapeutic milieu in the Inpatient Mental Health Unit. To protect the privacy of the [facility], this review was conducted with only the [facility] and staff present. Minimum two(2)staff member's present during the search: APARNA Pedro and APARNA Pino Results No hazardous or unapproved items were identified in the 's room or personal possessions. /saravanan BOYD MBA, RN REGISTERED NURSE Signed: 09/06/2024 08:03 SURYA PEDRO [facility] Sep 03, 2024 01:43 PM NURSING NOTE: LOCAL TITLE: [facility] PROGRESS NOTE STL STANDARD TITLE: NURSING NOTE DATE OF NOTE: SEP 03, 2024@13:43 ENTRY DATE: SEP 03, 2024@13:43:29 AUTHOR: IRIS GUTIERREZ EXP COSIGNER: URGENCY: STATUS: COMPLETED [facility] at the nursing station requesting to speak to psychiatrist to possibly change her psychiatric medications due unpleasant side effect. [facility] didn't specify which medication only related that she had a pharmacy group and interested to try different type of psych medications. /saravanan GUTIERREZ RN BSN REGISTERED NURSE Signed: 09/03/2024 13:47 Receipt Acknowledged By: 09/06/2024 14:27 /sanjeev/ Dominguez Shaikh MD MPH. Staff Physician, Psychiatry 09/03/2024 15:55 /es/ [facility] Registered Nurse - Mental Health 09/04/2024 08:22 /sanjeev/ MOISÉS TRAN Psychiatric Nurse Practitioner, Inpatient IRIS GUTIERREZ [facility] Sep 03, 2024 11:48 AM RADIOLOGY TELEPHONE ENCOUNTER NOTE: LOCAL TITLE: DIS FIRST CALL STANDARD TITLE: RADIOLOGY TELEPHONE ENCOUNTER NOTE DATE OF NOTE: SEP 03, 2024@11:48 ENTRY DATE: SEP 03, 2024@11:48:48 AUTHOR: CHARLES MARTINEZ EXP COSIGNER: URGENCY: STATUS: COMPLETED First call was placed today in attempt to contact patient. Message was left to contact: Diagnostic Imaging: Call [phone] /sanjeev/ CHARLES MARTINEZ Signed: 09/03/2024 11:49 CHARLES MARTINEZ [facility] Sep 03, 2024 08:45 AM NURSING NOTE: LOCAL TITLE: [facility] PROGRESS NOTE STL STANDARD TITLE: NURSING NOTE DATE OF NOTE: SEP 03, 2024@08:45 ENTRY DATE: SEP 03, 2024@08:45:54 AUTHOR: TORREY CHANG EXP COSIGNER: URGENCY: STATUS: COMPLETED [facility] required to provide random urine drug screen and breathalyzer analysis. [facility] provided urine sample and verified that information on the urine specimen label was correct. Specimen placed in lab refrigerator. [facility] performed breathalyzer analysis for random alcohol screen. Test number: 391 Result:.000 /sanjeev/ TORREY CHANG NA ROSIN BARREL FILLER Signed: 09/03/2024 08:46 TORREY CHANG [facility] Aug 31, 2024 08:28 AM NURSING NOTE: LOCAL TITLE: [facility] PROGRESS NOTE STL STANDARD TITLE: NURSING NOTE DATE OF NOTE: AUG 31, 2024@08:28 ENTRY DATE: AUG 31, 2024@08:28:18 AUTHOR: HUNTER TOLBERT EXP COSIGNER: URGENCY: STATUS: COMPLETED med count completed. meds in order. /sanjeev/ HUNTER TOLBERT RN BSN Registered Nurse, CALVINRT[facility] Signed: 08/31/2024 08:28 HUNTER TOLBERT [facility] Aug 30, 2024 08:31 AM NURSING NOTE: LOCAL TITLE: [facility] PROGRESS NOTE STL STANDARD TITLE: NURSING NOTE DATE OF NOTE: AUG 30, 2024@08:31 ENTRY DATE: AUG 30, 2024@08:31:35 AUTHOR: HUNTER TOLBERT EXP COSIGNER: URGENCY: STATUS: COMPLETED med count completed. meds in order. /sanjeev/ HUNTER W TOMASZ SAWDUST DRIER Registered Nurse, SARRTP/[facility] Signed: 08/30/2024 08:32 HUNTER TOLBERT [facility] Aug 29, 2024 10:43 AM INTERNAL MEDICINE NOTE: LOCAL TITLE: [facility] CORE DRILLING SUPERVISOR OF THE DAY [facility] STANDARD TITLE: INTERNAL MEDICINE NOTE DATE OF NOTE: AUG 29, 2024@10:43 ENTRY DATE: AUG 29, 2024@10:43:28 AUTHOR: MADHU VELASCO EXP COSIGNER: URGENCY: STATUS: COMPLETED Nurse called that patient ran out of his Atomoxoetine dose. Needs a dose currently. Order placed. DO LEVI López MOD /es/ MADHU VELASCO CORE DRILLING SUPERVISOR OF THE DAY Signed: 08/29/2024 10:44 Receipt Acknowledged By: 08/30/2024 09:17 /sanjeev/ Dominguez Shaikh MD MPH. Staff Physician, Psychiatry MADHU VELASCO [facility] Aug 25, 2024 02:04 PM NURSING NOTE: LOCAL TITLE: [facility] PROGRESS NOTE [facility] STANDARD TITLE: NURSING NOTE DATE OF NOTE: AUG 25, 2024@14:04 ENTRY DATE: AUG 25, 2024@14:04:36 AUTHOR: SURYA PEDRO EXP COSIGNER: URGENCY: STATUS: COMPLETED [facility] notified and required to provide random urine sample and BA at this time. Request acknowledged by . [facility] was offered the preference of a male or female staff for the collection process. [facility] verified that his information is correct on the urine specimen label. [facility] provided a BA (Breathalyzer) for random breath alcohol screen upon request of staff. Test number: 340 Result:.000 [facility] provided Methadone Panel for random urine drug screen upon request of staff, Methadone Panel (STL) results pending. /sanjeev/ SURYA BOYD MBA, RN REGISTERED NURSE Signed: 08/25/2024 14:09 SURYA PEDRO [facility] Aug 25, 2024 09:48 AM PHARMACY NOTE: LOCAL TITLE: PHARMACY MEDICATIONS RETURNED [facility] STANDARD TITLE: PHARMACY NOTE DATE OF NOTE: AUG 25, 2024@09:48 ENTRY DATE: AUG 25, 2024@09:48:54 AUTHOR: STEPHIE SALCIDO EXP COSIGNER: URGENCY: STATUS: COMPLETED RETURNED MEDICATIONS Package returned from: [facility] Comments: Reason package returned: Other Comments: patient home meds marked for destruction Contacted patient: NO Disposition of package: Destroyed Comments: RX # Medication Quantity Fill Date [id number] prazosin 2mg 6 08/23/2024 [id number] Hydroxyzine 25mg 17 08/21/2024 prazosin 1mg 4 Current Address: [address] [place] [address] [address] [place] [address] Address package WAS mailed to prior to return: Address if re-mailed: /saravanan SALCIDO CPHT LEASING SALES CONSULTANT, PHARMACY Signed: 08/25/2024 09:52 STEPHIE SALCIDO [facility] Aug 25, 2024 08:22 AM NURSING NOTE: LOCAL TITLE: [facility] PROGRESS NOTE STL STANDARD TITLE: NURSING NOTE DATE OF NOTE: AUG 25, 2024@08:22 ENTRY DATE: AUG 25, 2024@08:22:08 AUTHOR: ANTONIETTA PINO EXP COSIGNER: URGENCY: STATUS: COMPLETED Prazosin 2 mg capsules discontinued by provider. [facility] turned in remaining Prazosin capsules to nursing, nursing placed in evidence bag to be sent to and destroyed by pharmacy. /sanjeev/ ANTONIETTA PINO RN REGISTERED NURSE Signed: 08/25/2024 08:24 ANTONIETTA PINO [facility] Aug 25, 2024 08:03 AM ADDENDUM: LOCAL TITLE: Addendum STANDARD TITLE: ADDENDUM DATE OF NOTE: AUG 25, 2024@08:03:27 ENTRY DATE: AUG 25, 2024@08:03:28 AUTHOR: [facility] EXP COSIGNER: URGENCY: STATUS: COMPLETED Discussed with patient not wanting to take medications anymore and not taking any of her medications yesterday. Patient reports that she thinks prazosin is making her dizzy and causing headaches, also states it is not helping with nightmares but endorses sleeping well. Discussed with patient that she just stopped smoking cannabis chronically on the day she admitted on 08/19/24 and could be going through the effects of withdrawal. Patient also recently restarted Bupropion and body is trying to adjust to medication. Discussed all- or-nothing thinking, ways to be mindful of this happening, and the normalcy of it in addiction. Patient verbalized understanding and agreed to restart medication with discontinuing prazosin due to side effects and ineffectiveness. Treatment plan: - Discontinue prazosin due to side effects of dizziness and headache, ineffective at dosing of 2mg at bedtime. - Will continue lexapro, bupropion, trazodone, hydroxyzine, and melatonin at current dosing. - Patient encouraged to discuss feelings with providers and staff. The was educated on his differential diagnoses and treatment options available. The was educated on his medications, discussed the appropriate doses, the benefits and adverse events that could occur with taking these medications. /sanjeev/ [facility] Registered Nurse - Mental Health Signed: 08/25/2024 08:13 Receipt Acknowledged By: 08/26/2024 07:32 /es/ STEPHANIE STANLEY Registered Nurse, [facility] 08/25/2024 15:16 /es/ Dominguez Shaikh MD MPH. Staff Physician, Psychiatry --- Original Document --- 08/24/24 [facility] PROGRESS NOTE STL: states that she no longer wants to take her medications and that she didn't take them today. I feel like I'm getting worse, I only want to take melatonin. [facility] was advised to discuss with psychiatry tomorrow. /sanjeev/ SURYA BOYD MBA RN REGISTERED NURSE Signed: 08/24/2024 18:17 Receipt Acknowledged By: 08/25/2024 07:25 /sanjeev/ [facility] Registered Nurse - Mental Health [facility] Aug 24, 2024 06:14 PM NURSING NOTE: LOCAL TITLE: [facility] PROGRESS NOTE STL STANDARD TITLE: NURSING NOTE DATE OF NOTE: AUG 24, 2024@18:14 ENTRY DATE: AUG 24, 2024@18:14:59 AUTHOR: SURYA PEDRO EXP COSIGNER: URGENCY: STATUS: COMPLETED [facility] PROGRESS NOTE STL Has ADDENDA states that she no longer wants to take her medications and that she didn't take them today. I feel like I'm getting worse, I only want to take melatonin. [facility] was advised to discuss with psychiatry tomorrow. /sanjeev/ SURYA BOYD MBA RN REGISTERED NURSE Signed: 08/24/2024 18:17 Receipt Acknowledged By: 08/25/2024 07:25 /sanjeev/ [facility] Registered Nurse - Mental Health 08/25/2024 ADDENDUM STATUS: COMPLETED Discussed with patient not wanting to take medications anymore and not taking any of her medications yesterday. Patient reports that she thinks prazosin is making her dizzy and causing headaches, also states it is not helping with nightmares but endorses sleeping well. Discussed with patient that she just stopped smoking cannabis chronically on the day she admitted on 08/19/24 and could be going through the effects of withdrawal. Patient also recently restarted Bupropion and body is trying to adjust to medication. Discussed all- or-nothing thinking, ways to be mindful of this happening, and the normalcy of it in addiction. Patient verbalized understanding and agreed to restart medication with discontinuing prazosin due to side effects and ineffectiveness. Treatment plan: - Discontinue prazosin due to side effects of dizziness and headache, ineffective at dosing of 2mg at bedtime. - Will continue lexapro, bupropion, trazodone, hydroxyzine, and melatonin at current dosing. - Patient encouraged to discuss feelings with providers and staff. The was educated on his differential diagnoses and treatment options available. The was educated on his medications, discussed the appropriate doses, the benefits and adverse events that could occur with taking these medications. /sanjeev/ [facility] Registered Nurse - Mental Health Signed: 08/25/2024 08:13 Receipt Acknowledged By: * AWAITING SIGNATURE * STEPHANIE STANLEY * AWAITING SIGNATURE * ANTONIETTA PINO * AWAITING SIGNATURE * HUNTER TOLBERT * AWAITING SIGNATURE * DOMINGUEZ SHAIKH JANNEKE [facility] Aug 23, 2024 01:46 PM PSYCHIATRY NOTE: LOCAL TITLE: PSYCHIATRY ST STANDARD TITLE: PSYCHIATRY NOTE DATE OF NOTE: AUG 23, 2024@13:46 ENTRY DATE: AUG 23, 2024@13:46:30 AUTHOR: MOISÉS TRAN EXP COSIGNER: URGENCY: STATUS: COMPLETED PSYCHIATRY [facility] Has ADDENDA [facility] - MEDICATION MANAGEMENT Name..................LATROS ARGUELLO,SHAUNA FARRELL Age...................39 Sex...................FEMAL E SSN...................[id number] Today's Date..........AUG 23, 2024 Service Connection....Service Connected: No ALLERGIES: BACTRIM, [...] PREVENT CLOGGING. 3) ATOMOXETINE 40MG CAP Qty: 7 for 7 days ACTIVE Issu:08-20-24 Sig: TAKE ONE CAPSULE BY MOUTH EVERY Refills: 2 Last:08-20-24 MORNING Expr:08-21-25 4) BUPROPION HCL 100MG 12HR SA TAB Qty: 30 ACTIVE Issu:05-22-24 for 30 days Sig: TAKE ONE TABLET BY Refills: 3 Last:05-22-24 MOUTH ONCE A DAY FOR DEPRESSION Expr:05-23-25 SWALLOW WHOLE - DO NOT CRUSH OR CHEW. 5) BUPROPION HCL 150MG 24HR SA TAB Qty: 7 ACTIVE Issu:08-20-24 for 7 days Sig: TAKE ONE TABLET BY Refills: 2 Last:08-20-24 MOUTH ONCE A DAY FOR DEPRESSION Expr:08-21-25 SWALLOW WHOLE - DO NOT CRUSH OR CHEW. 6) ESCITALOPRAM OXALATE 20MG TAB Qty: 11 ACTIVE Issu:08-20-24 for 7 days Sig: TAKE ONE AND ONE-HALF Refills: 2 Last:08-20-24 TABLETS BY MOUTH EVERY MORNING Expr:08-21-25 7) HYDROXYZINE HCL 25MG TAB Qty: 21 for 7 ACTIVE Issu:08-21-24 days Sig: TAKE ONE TABLET BY MOUTH Refills: 2 Last:08-21-24 THREE TIMES A DAY NEEDED *MAY CAUSE Expr:08-22-25 DROWSINESS* 8) IBUPROFEN 800MG TAB Qty: 21 for 7 days ACTIVE Issu:08-20-24 Sig: TAKE ONE TABLET BY MOUTH THREE Refills: 2 Last:08-20-24 TIMES A DAY NEEDED FOR PAIN TAKE Expr:08-21-25 WITH FOOD. 9) LORATADINE 10MG TAB Qty: 7 for 7 days ACTIVE Issu:08-20-24 Sig: TAKE ONE TABLET BY MOUTH ONCE A Refills: 2 Last:08-20-24 DAY NEEDED FOR ALLERGIC RHINITIS ON Expr:08-21-25 EMPTY STOMACH 10) NALOXONE HCL 4MG/SPRAY SOLN NASAL SPRAY ACTIVE Issu:08-19-24 Qty: 2 for 5 days Sig: USE 1 SPRAY Refills: 0 Last:08-19-24 (4MG) INTO ONE NOSTRIL ONLY ONE-TIME Expr:09-18-24 FOR OPIOID OVERDOSE DO NOT PRIME NASAL SPRAY. SPRAY ONE DOSE IN ONE NOSTRIL, GIVE ADDITIONAL DOSE IF PATIENT DOES NOT START BREATHING WITHIN 2-3 MINUTES OR STOPS BREATHING AGAIN. CALL 911. IF USED, NOTIFY PROVIDER. 11) NICOTINE 14MG/24HR PATCH Qty: 28 for 28 ACTIVE Issu:05-22-24 days Sig: APPLY 1 PATCH TO SKIN SITE Refills: 3 Last:05-22-24 EVERY MORNING REMOVE OLD PATCH BEFORE Expr:05-23-25 APPLYING NEW ONE. ROTATE SITES. DO NOT SMOKE WHILE WEARING PATCH. 12) NICOTINE 21MG/24HR PATCH Qty: 28 for 28 ACTIVE Issu:08-20-24 days Sig: APPLY 1 PATCH TO SKIN SITE Refills: 0 Last:08-20-24 EVERY MORNING REMOVE OLD PATCH BEFORE Expr:09-19-24 APPLYING NEW ONE. ROTATE SITES. DO NOT SMOKE WHILE WEARING PATCH. 13) NICOTINE 4MG GUM Qty: 110 for 30 days ACTIVE Issu:08-20-24 Sig: CHEW 1 PIECE OF GUM BY MOUTH Refills: 0 Last:08-20-24 EVERY 4 HOURS NEEDED CHEW GUM UNTIL Expr:09-19-24 TINGLING SENSATION, THEN PARK THE GUM BETWEEN CHEEK AND GUM AREA. REPEAT (RE-CHEW) WHEN TINGLING STOPS. 14) NICOTINE 7MG/24HR PATCH Qty: 28 for 28 ACTIVE Issu:05-22-24 days Sig: APPLY 1 PATCH TO SKIN SITE Refills: 3 Last:05-22-24 EVERY MORNING REMOVE OLD PATCH BEFORE Expr:05-23-25 APPLYING NEW ONE. ROTATE SITES. DO NOT SMOKE WHILE WEARING PATCH. 15) PRAZOSIN HCL 1MG CAP Qty: 7 for 7 days ACTIVE Issu:08-20-24 Sig: TAKE ONE CAPSULE BY MOUTH AT Refills: 2 Last:08-20-24 BEDTIME FOR NIGHTMARES MAY CAUSE Expr:08-21-25 DIZZINESS OR DROWSINESS. 16) TRAZODONE HCL 100MG TAB Qty: 4 for 7 ACTIVE Issu:08-21-24 days Sig: TAKE ONE-HALF TABLET BY Refills: 2 Last:08-21-24 MOUTH AT BEDTIME Expr:08-22-25 17) TRIAMCINOLONE ACETONIDE 0.1% CREAM Qty: ACTIVE Issu:08-20-24 80 for 30 days Sig: APPLY LIGHTLY TO Refills: 0 Last:08-20-24 AFFECTED AREA(S) TWICE A DAY FOR Expr:09-19-24 PSORIASIS (EXTERNAL USE ONLY) Start Date Active Non-VA Medications Refills Expiration 1) Non-VA TRIAMCINOLONE OINT,TOP Sig: .025 ACTIVE TO AFFECTED AREA(S) ONCE A DAY 18 Total Medications PROBLEM LIST: 1) Cannabis abuse 2) Cannabis dependence, continuous 3) Admits alcohol use 4) Cocaine user 5) Opioid dependence 6) Tobacco use VITAL SIGNS: Pulse.................94 (08/22/2024 06:56) Temperature...........98.1 F [36.7 C] (08/22/2024 06:56) Blood Pressure........107/71 (08/22/2024 06:56) Pain..................0 (08/22/2024 06:56) Weight................ No patient weight [...] 09:59 EGFR (CKD-EPI 2020) 104.44 08/19/2024 09:59 DIAGNOSIS BEING TREATED THIS VISIT: Insomnia Nightmares Anxiety ANY COMPLAINTS/PROBLEMS.......Y es reports current medications for sleep, anxiety are minimally beneficial. [facility] reports issues with sleep initiation and maintenance - states start of Trazodone with admission, increased to full tablet on her own for the past 4 days (though dependent x2 days) reports ongoing nightmares - currently taking Prazosin 1 mg. [facility] reports Hydroxyzine has been non-beneficial in treating anxiety or sleep initiation; states taking Escitalopram prior to admission. reports removing nicotine patch prior to bedtime. ANY MEDICATION SIDE EFFECT....No APPETITE................... ...Good SLEEP...................... ...Poor MENTAL STATUS: MOOD/AFFECT................ .Normal DELUSIONS/HALLUCINATIONS... .Absent SUICIDAL/AGGRESSIVE........ .Absent ALERT & ORIENTED X3 WITH GOOD CONCENTRATION........Yes MEDICATION CHANGE.............Yes agrees to increase Trazodone for sleep [facility] agrees to increase Prazosin for nightmares [facility] agrees to increase Hydroxyzine HS for sleep initiation agrees to start Melatonin for sleep initiation agrees to increase Escitalopram for anxiety TREATMENT PLAN: Increase Trazodone to 150 mg HS for to further benefit sleep maintenance Increase Prazosin to 2 mg HS to further benefit nightmares Increase Hydroxyzine to 50 mg HS PRN for sleep initiation Start Melatonin 3 mg HS PRN for sleep initiation Increase Escitalopram to 20 mg to further benefit anxiety I encouraged [facility] to reach out to providers prior to increasing medications on her own I encouraged to reach out to staff for any needs I encouraged to return to clinic in 2 weeks or sooner if needed Supportive therapy provided for 16 minutes EDUCATION: was educated on his differential diagnoses and treatment options available. was educated on his medications, discussed the appropriate doses, the benefits and adverse events that could occur with taking these medications. [facility] educated on plan, voices understanding and agreeable. /sanjeev/ MOISÉS TRAN Psychiatric Nurse Practitioner, [facility] Signed: 08/23/2024 14:18 08/23/2024 ADDENDUM STATUS: COMPLETED NOTE: Escitalopram is currently at maximum dose of 30 mg daily. Will add Hydroxyzine 50 mg HS PRN for sleep initiation and continue Hydroxyzine 25 TID PRN for anxiety. /saravanan TRAN Psychiatric Nurse Practitioner, [facility] Signed: 08/23/2024 14:20 MOISÉS TRAN [facility] Aug 23, 2024 08:06 AM NURSING NOTE: LOCAL TITLE: [facility] [place] PROGRESS NOTE [facility] STANDARD TITLE: NURSING NOTE DATE OF NOTE: AUG 23, 2024@08:06 ENTRY DATE: AUG 23, 2024@08:06:13 AUTHOR: SURYA PEDRO EXP COSIGNER: URGENCY: STATUS: COMPLETED inidcates that her prazosin and trazadone are not working for her night terrors. The visteral is not working for her anxiety. She would like to see psychiatry to discuss. /es/ SURYA BOYD MBA RN REGISTERED NURSE Signed: 08/23/2024 08:07 Receipt Acknowledged By: 08/23/2024 09:47 /es/ MOISÉS TRAN Psychiatric Nurse Practitioner, [facility] Inpatient RUBEN PEDROKHOA [facility] Aug 20, 2024 03:50 PM NURSING NOTE: LOCAL TITLE: [facility] PROGRESS NOTE STL STANDARD TITLE: NURSING NOTE DATE OF NOTE: AUG 20, 2024@15:50 ENTRY DATE: AUG 20, 2024@15:50:24 AUTHOR: ANTONIETTA PINO EXP COSIGNER: URGENCY: STATUS: COMPLETED is requesting to speak with the doctor regrding her anxiety. /es/ ANTONIETTA PINO RN REGISTERED NURSE Signed: 08/20/2024 15:51 Receipt Acknowledged By: 08/21/2024 09:13 /es/ Dominguez Shaikh MD MPH. Staff Physician, Psychiatry 08/21/2024 07:49 /es/ [facility] Registered Nurse - Mental Health ANTNOIETTA PINO [facility] Aug 20, 2024 02:36 PM NUTRITION DIETETICS E & M NOTE: LOCAL TITLE: NUTRITION ASSESSMENT ST STANDARD TITLE: NUTRITION DIETETICS E & M NOTE DATE OF NOTE: AUG 20, 2024@14:36 ENTRY DATE: AUG 20, 2024@14:36:59 AUTHOR: JEREMIE PATRICK EXP COSIGNER: URGENCY: STATUS: COMPLETED Nutrition Assessment SGA (brief) Nutrition risk per subjective global assessment (SGA) SGA rating is 1-5 indicating predicted nutrition problem. no assessment needed unless determined by R.D. Follow up date: Sep NUTRITION ASSESSMENT CLIENT HISTORY: 39 year old FEMALE admitted for polysubstance dependence Patient medical health history: 1) Cannabis abuse 2) Cannabis dependence, continuous 3) Admits alcohol use 4) Cocaine user 5) Opioid dependence 6) Tobacco use Food and Nutrition related history: Diet Order: REGULAR (08/19/24) Food and Fluid Intake: reported decreased appetite on admission screen, but no weight loss ALLERGIC TO PEANUTS: listed in admission screen Medications and Herbal Supplements: No medications found. Anthropometric Measurements: Ht: Wt: BMI: BMI not available without height Weight History/Significant changes: No patient weight history to display. Biochemical Data/Med tests and procedures: LABS: SODIUM 139 mEq/L 08/19/2024 09:59 POTASSIUM 4.2 mEq/L 08/19/2024 09:59 CHLORIDE 108 H mEq/L 08/19/2024 09:59 UREA NITROGEN 12.0 mg/dL 08/19/2024 09:59 CREATININE 0.75 mg/dL 08/19/2024 09:59 CALCIUM 8.8 mg/dL 08/19/2024 09:59 PROTEIN 6.5 g/dL 08/19/2024 09:59 ALBUMIN 3.8 g/dL 08/19/2024 09:59 ALKALINE PHOSPHATASE 69 U/L 08/19/2024 09:59 ALT/SGPT 25 U/L 08/19/2024 09:59 AST/SGOT 19 U/L 08/19/2024 09:59 TOTAL BILIRUBIN 0.1 L mg/dL 08/19/2024 09:59 CARBON DIOXIDE 23 mEq/L 08/19/2024 09:59 GLUCOSE 99 mg/dL 08/19/2024 09:59 EGFR (CKD-EPI 2020) 104.44 08/19/2024 09:59 No PREALBUMIN data found No FOLATE (STL-MA);FOLATE (PB);FOLATE (DC 07-09);FOLATE (DC 07/09) data found No IRON & TIBC EO data found No B12 EO data found No PHOSPHOROUS data found No HEMOGLOBIN A1C EO data found LIPID PROFILE: No LIPID PANEL EO data found ACCU-CKS: No GLUCOSE,BLOOD-poct (STL) data found Social history: substance abuse currently in [facility] Nutrition Focused Physical Findings: no concerns David Score: 19-23 No Risk Skin: intact Hydration status: Adequate NUTRITION DIAGNOSIS: No acute concerns. INTERVENTION: Added peanut dislike in computrition. Will tag nurse for allergy to be entered into CPRS. /sanjeev/ JEREMIE PATRICK MS, RDN, LD Clinical Dietitian Signed: 08/20/2024 14:39 JEREMIE PATRICK [facility] Aug 20, 2024 07:50 AM ADDENDUM: LOCAL TITLE: Addendum STANDARD TITLE: ADDENDUM DATE OF NOTE: AUG 20, 2024@07:50:34 ENTRY DATE: AUG 20, 2024@07:50:35 AUTHOR: SURYA PEDRO EXP COSIGNER: URGENCY: STATUS: COMPLETED attended medication education class 1:1. Vecameron was given a copy of his current meds for review and to keep in his possession. A general discussion about medication compliance, requesting changes in medications, and reporting side effects was discussed with the vet. Session was then open to questions and concerns about current medications. Indications for use, dosages, route, administration times, and possible side effects were reviewed for this 's meds. [facility] was actively engaged in medication education.WILL DEFER DECISION TO MAKE PT.INDEPENDENT WITH MEDICATIONS TO THE PHYSICIANS /es/ SURYA HERRERAA RN REGISTERED NURSE Signed: 08/20/2024 07:50 Receipt Acknowledged By: 08/20/2024 08:53 /sanjeev/ [facility] Registered Nurse - Mental Health 08/20/2024 08:29 /sanjeev/ Daniel Gomez M.D. Staff Physician --- Original Document --- 08/19/24 SAFE MEDICATION ASSESSMENT STL: Date of Assessment: Does the [facility]... 1. Take Medications as prescribed consistently without missed doses? Yes 2. Explain storage and security requirements for medications? Yes 3. Name all prescribed medications (from recall or list)? Identify medication by color and formulation (e.g.: pill or capsule)? Yes 4. Describe the process for administering each medication (route, dose, and when) either from recall, use of the medication list? yes 5. State specific reason each medication is prescribed? Yes 6. Describe side effects of each medication and follow up action(s) that should be taken if they occur? Yes 7. Describe any special instructions that should be taken?Yes 8. Describe benefits of medications? Yes 9. Desribe how to ask for changes in medications? Yes 10. Can read and understand administration instructions on medication label? Yes 11. Describe a personal plan for remember to take medications and integrating medications into lifestyle? Yes 12. Describe barriers in independently obtaining or taking medications? Yes 13. Describe a reasonable personal plan for independently requesting and obtaining medication refills? Yes 14. Verify attendance at Medication Class on SARRTP unit? No DEPENDENT Additional comments: Disposition: Remain at current level of DEPENDENT /sanjeev/ SURYA HERRERAA RN REGISTERED NURSE Signed: 08/19/2024 11:13 SURYA PEDRO [facility] Aug 19, 2024 02:19 PM PHARMACY NOTE: LOCAL TITLE: PHARMACY MEDICATIONS RETURNED ST STANDARD TITLE: PHARMACY NOTE DATE OF NOTE: AUG 19, 2024@14:19 ENTRY DATE: AUG 19, 2024@14:19:37 AUTHOR: STEPHIE SALCIDO EXP COSIGNER: URGENCY: STATUS: COMPLETED RETURNED MEDICATIONS Package returned from: [facility] Comments: Reason package returned: Other Comments: pt home meds marked to mail Contacted patient: NO Disposition of package: Re-mailed Comments: RX # Medication Quantity Fill Date Sealed evidence bag of medication Current Address: [address] [place] [address] [address] [place] [address] Address package WAS mailed to prior to return: Address if re-mailed: [address] [place] [address] [address] [place] [id number] /sanjeev/ STEPHIE SALCIDO CPHT LEASING SALES CONSULTANT, PHARMACY Signed: 08/19/2024 14:20 STEPHIE SALCIDO [facility] Aug 19, 2024 02:10 PM MENTAL HEALTH COUNSELING NOTE: LOCAL TITLE: PEER SUPPORT [facility] STANDARD TITLE: MENTAL HEALTH COUNSELING NOTE DATE OF NOTE: AUG 19, 2024@14:10 ENTRY DATE: AUG 19, 2024@14:10:55 AUTHOR: LANA PURCELL EXP COSIGNER: URGENCY: STATUS: COMPLETED MILL RECORDER INDIVIDUAL/MENTORING NOTE : STACIESHAUNA FAR[place] Service Connected: No DATE SEEN: 08/19/24 TIME:1330 LOCATION OF VISIT: [X][facility] DURATION OF VISIT: 45minutes PROCEDURE CODE: H0038 x 3 [X]If this is initial contact with [facility]: This is initial contact with [facility] (PS). [facility] provided informed consent; PS reviewed role/responsibilities, and limitations of confidentiality. consents to work with PS. 'S CURRENT GOAL(S): Orientate to unit BRIEF REVIEW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 NEW ONE. ROTATE SITES. DO NOT SMOKE WHILE WEARING PATCH. Rx# [id number] Last Released: 05/23/24 Qty/Days Supply: Rx Expiration Date: 05/23/25 Refills Remainin Indication: FOR TOBACCO CESSATION INPT NICOTINE 21MG/24HR PATCH (Status=Active) 1 PATCH TRANSDERMAL EVERY MORNING Indication: FOR TOBACCO CESSATION OUTPT NICOTINE 21MG/24HR PATCH (Status = Active) APPLY 1 PATCH TO SKIN SITE EVERY MORNING FOR TOBACCO CESSATION REMOVE OLD PATCH BEFORE APPLYING NEW ONE. ROTATE SITES. DO NOT SMOKE WHILE WEARING PATCH. Rx# [id number] Last Released: 05/23/24 Qty/Days Supply: Rx Expiration Date: 05/23/25 Refills Remainin Indication: FOR TOBACCO CESSATION OUTPT NICOTINE 7MG/24HR PATCH (Status = Active) APPLY 1 PATCH TO SKIN SITE EVERY MORNING REMOVE OLD PATCH BEFORE APPLYING NEW ONE. ROTATE SITES. DO NOT SMOKE WHILE WEARING PATCH. Rx# [id number] Last Released: 05/23/24 Qty/Days Supply: Rx Expiration Date: 05/23/25 Refills Remainin Indication: FOR TOBACCO CESSATION INPT NICOTINE 4MG GUM (Status=Active) 4MG BY MOUTH EVERY FOUR HOURS NEEDED Indication: FOR TOBACCO CESSATION OUTPT OLANZAPINE 5MG TAB (Status = Discontinued) TAKE ONE-HALF TABLET BY MOUTH AT BEDTIME Rx# [id number] Last Released: 05/09/24 Qty/Days Supply: Rx Expiration Date: 03/23/25 Refills Remainin Indication: MOOD STABILIZER INPT TRIAMCINOLONE ACETONIDE 0.1% CREAM (Status=Active) LIGHTLY TOP TWICE A DAY Indication: FOR PSORIASIS Non-VA TRIAMCINOLONE OINT,TOP APPLY 0.025 TO AFFECTED AREA(S) ONCE A DAY Indication: psoriasis INPT TUBERCULIN, PPD 5UNT/0.1ML INJ UD (Status=Active) 5 UNIT/0.1ML ID ONE-TIME Place PPD if patient has not had recent PPD, no history of positive PPD or no allergy to PPD. Test results to be read within 48 to 72 hours. Indication: FOR TUBERCULOSIS SKIN TEST SUPPLIES PHARMACY TERMS AND POSSIBLE PATIENT ACTIONS INPT = [place] inpatient order IV = [place] intravenous medication OUTPT = [place] outpatient prescription PHARMACY POSSIBLE PATIENT TERMS EXPLANATION ACTIONS -------- ----- ACTIVE A prescription that can be If you have refills, filled at the local [place] pharmacy. you may request a refill of this prescription from your [place] pharmacy. CLINIC A medication you received during If you have questions a visit to a [place] clinic or about this medication emergency department. contact your [place] healthcare team. DISCONTINUED A prescription your provider has Contact your VA stopped. It is no longer healthcare team if you available to be sent to you or need more of this picked up at the [place] pharmacy medication. window. A prescription which is too old Contact your VA to fill. This does not refer to healthcare team if you the expiration date of the need more of this medication in the container. medication. NON-VA A medication that came from If this medication someplace other than a VA information is pharmacy. This may be a incorrect or out of prescription from either the VA date, please tell your or non VA providers that was VA healthcare team. filled outside the VA. Or, it may be an thyq-sjr-obmzmnk (OTC), herbal, dietary supplements or sample medication. ON HOLD An active prescription that will Contact your VA not be filled until pharmacy pharmacy when you need resolves the issue. more of this medication. PARKED An active prescription that will Contact your VA not be filled until the patient pharmacy when you need requests it. this medication. PENDING This prescription order has been If you have been sent to the pharmacy for review instructed to start and is not ready yet. this medication now, contact your VA pharmacy. SUSPENDED An active prescription that is Contact your VA not scheduled to be filled yet. pharmacy if you need You should receive it before this medication now. you run out. Medication Reconciliation Documentation Revised list given to the patient. /sanjeev/ SURYA BOYD MBA RN REGISTERED NURSE Signed: 08/19/2024 11:12 SURYA PEDRO [facility] Aug 19, 2024 11:12 AM NURSING MEDICATION MGT NOTE: LOCAL TITLE: SAFE MEDICATION ASSESSMENT ST STANDARD TITLE: NURSING MEDICATION MGT NOTE DATE OF NOTE: AUG 19, 2024@11:12 ENTRY DATE: AUG 19, 2024@11:13:05 AUTHOR: SURYA PEDRO EXP COSIGNER: URGENCY: STATUS: COMPLETED SAFE MEDICATION ASSESSMENT STL Has ADDENDA Date of Assessment: Does the [facility]... 1. Take Medications as prescribed consistently without missed doses? Yes 2. Explain storage and security requirements for medications? Yes 3. Name all prescribed medications (from recall or list)? Identify medication by color and formulation (e.g.: pill or capsule)? Yes 4. Describe the process for administering each medication (route, dose, and when) either from recall, use of the medication list? yes 5. State specific reason each medication is prescribed? Yes 6. Describe side effects of each medication and follow up action(s) that should be taken if they occur? Yes 7. Describe any special instructions that should be taken?Yes 8. Describe benefits of medications? Yes 9. Desribe how to ask for changes in medications? Yes 10. Can read and understand administration instructions on medication label? Yes 11. Describe a personal plan for remember to take medications and integrating medications into lifestyle? Yes 12. Describe barriers in independently obtaining or taking medications? Yes 13. Describe a reasonable personal plan for independently requesting and obtaining medication refills? Yes 14. Verify attendance at Medication Class on SARRTP unit? No DEPENDENT Additional comments: Disposition: Remain at current level of DEPENDENT /sanjeev/ SURYA BOYD MBA RN REGISTERED NURSE Signed: 08/19/2024 11:13 08/20/2024 ADDENDUM STATUS: COMPLETED [facility] attended medication education class 1:1. Vets was given a copy of his current meds for review and to keep in his possession. A general discussion about medication compliance, requesting changes in medications, and reporting side effects was discussed with the vet. Session was then open to questions and concerns about current medications. Indications for use, dosages, route, administration times, and possible side effects were reviewed for this 's meds. was actively engaged in medication education.WILL DEFER DECISION TO MAKE PT.INDEPENDENT WITH MEDICATIONS TO THE PHYSICIANS /sanjeev/ SURYA BOYD MBA RN REGISTERED NURSE Signed: 08/20/2024 07:50 Receipt Acknowledged By: * AWAITING SIGNATURE * [facility] * AWAITING SIGNATURE * DANIEL GOMEZ JANNEKE [facility] Aug 19, 2024 11:10 AM SATP EDUCATION NOTE: LOCAL TITLE: SARRTP REHAB LODGER ORIENTATION [facility] STANDARD TITLE: SATP EDUCATION NOTE DATE OF NOTE: AUG 19, 2024@11:10 ENTRY DATE: AUG 19, 2024@11:10:17 AUTHOR: SURYA PEDRO EXP COSIGNER: URGENCY: STATUS: COMPLETED SHAUNA Anna was oriented to the unit and assigned a bed and locker. He was informed of patient rights, program policies on confidentiality and behavioral expectations. He verbalized understanding of rights and behavioral expectations for SATP and was given a copy to keep. If applicable, took any prescribed medications, herbal or [id number]-slo-[id number] medications from home to pharmacist for review. At that time, will sheepskin pickler any pending prescriptions. He was informed of the following: SATP Exchange Specialist: Mikayla [facility] PCP: Rocky [facility] SW: Jenelle Backes Tentative Discharge Date from [facility]: Sep 09, 2024 /sanjeev/ SURYA BOYD MBA RN REGISTERED NURSE Signed: 08/19/2024 11:12 Receipt Acknowledged By: 08/19/2024 12:57 /es/ Jenelle Davis Bank Accountant, [facility] Program 08/19/2024 11:37 /es/ TOMI PALAFOX Addiction Therapist, [facility] / SARRTP 08/19/2024 11:23 /es/ ALMA DELIA STEVENS Psychologist [address] [place] [address] SURYA PEDRO [facility] Aug 19, 2024 11:09 AM NURSING NOTE: LOCAL TITLE: RADAMES PROGRESS NOTE STL STANDARD TITLE: NURSING NOTE DATE OF NOTE: AUG 19, 2024@11:09 ENTRY DATE: AUG 19, 2024@11:09:10 AUTHOR: SURYA PEDRO EXP COSIGNER: URGENCY: STATUS: COMPLETED RADAMES PROGRESS NOTE STL Has ADDENDA Covid binax swab obtained at [facility] tolerated procedure well. Results read at NEGATIVE lot [id number] exp 2026-02-14 /sanjeev/ SURYA BOYD MBA RN REGISTERED NURSE Signed: 08/19/2024 11:09 08/19/2024 ADDENDUM STATUS: COMPLETED time 10:15am /sanjeev/ SURYA BOYD MBA RN REGISTERED NURSE Signed: 08/19/2024 11:09 SURYA PEDRO [facility] Aug 19, 2024 11:05 AM NURSING TREATMENT PLAN NOTE: LOCAL TITLE: RADAMES PLAN OF CARE STANDARD TITLE: NURSING TREATMENT PLAN NOTE DATE OF NOTE: AUG 19, 2024@11:05 ENTRY DATE: AUG 19, 2024@11:05:12 AUTHOR: SURYA PEDRO EXP COSIGNER: URGENCY: STATUS: COMPLETED Nursing Diagnosis: Knowledge Deficit Goals/Outcomes: Patient will verbalize understanding of disease/treatment plan., Patient will modify behavior based on understanding of disease/treatment plan. Interventions:Assess patient's ability and readiness to learn., Support and encourage initial/ongoing attempts at change., Identify strategies and resources for behavioral change. Strategies and Resources: SARRTP GROUPS AND 1:1'S Education: Provide relevant information related to:ADDICTION Other: RELAPSE PREVENTION Nursing Diagnosis: Substance Abuse, Alteration in Health Maintenance Goals: Reports freedom from S/S of withdrawal by Dec. Verbalizes knowledge of continued use/abuse has adverse health outcomes. Interventions: Monitor for objective signs and symptoms of withdrawal, Encourage balanced nutritional intake and fluids at each meal, Encourage patient to identify impact of behavior on others, Reinforce need for follow-up care or support Other: SARRTP GROUPS AND 1:1'S Education: Provide relevant information related to:ADDICTION Other: RELAPSE PREVENTION Goals have been mutually set with patient /es/ SURYA HERRERAA RN REGISTERED NURSE Signed: 08/19/2024 11:05 SURYA PEDRO [facility]
--- OUTSIDE RECORDS SUMMARY | 2025-02-23 10:58 | XMS_ITS | Encounter Summary ---
Author Name [facility] ([place] Organization [facility] ([place]) Address [address] [place] [id number] Support Name Relationship Address Phone FUAD CHRISTINE Next of Kin Unknown CHRISTINE MERIDA Emergency Contact Unknown [phone] Insurance Providers: All historical and current Section [...] MEDIC AID Aug 02, 2015 MEDICAI D [id number] [phone] STACIE AYEJENNIFER PATIENT [facility] ([place]NR) MEDICAID MEDIC AID [facility] ([place]NR) Dec 01, 2023 MEDICAI D [id number] STACIE JENNIFER PATIENT Selected Encounter This section includes the information on record at [place] for the Encounter. Date/Time Encounter Type Encounter Description Reason Provider Source Sep 09, 2024 11:27 AM Inpatient Visit RRTP INDIVIDUAL ICD-10-CM F12.20 Cannabis dependence, uncomplicated SEVERADO,PRISCA LA IHE Encounter Template Text not used by [place] Assessments - Encounter Diagnoses This section includes the primary and secondary diagnoses documented for the Encounter. Date/Time Primary/Secondary Diagnosis Diagnosis Name Provider Source Sep 09, 2024 11:32 AM PRIMARY Cannabis dependence, uncomplicated [facility] Sep 09, 2024 11:32 AM SECONDARY Anxiety disorder, unspecified [facility] Sep 09, 2024 11:32 AM SECONDARY Insomnia, unspecified SEVERADO,LOPEZ A [facility] Sep 09, 2024 11:32 AM SECONDARY Tobacco use [facility] Plan of Treatment: Future Appointments (+ 6 months) and Future Tests (+/- 45 days) The Plan of Treatment section includes future care activities for the patient from [facility] This section includes future appointments and future orders which are active, pending or scheduled. Future Appointments This section includes appointments that were scheduled to occur 6 months from the date of the Encounter, up to a maximum of 20 appointments. The data comes from all [place] [facility]. Appointment Date/Time Appointment Type Appointme nt Facility Name Sep 10, 2024 12:30 PM AMBULATORY - PSYCHIATRY [facility] Sep 12, 2024 06:00 PM AMBULATORY - PSYCHIATRY [facility] Sep 17, 2024 06:00 PM AMBULATORY - PSYCHIATRY [facility] Sep 19, 2024 06:00 PM AMBULATORY - PSYCHIATRY [facility] Sep 26, 2024 06:00 PM AMBULATORY - PSYCHIATRY [facility] Oct 01, 2024 02:00 PM AMBULATORY - NONE [facility] Oct 09, 2024 03:00 PM AMBULATORY - MEDICINE [facility] Oct 16, 2024 01:00 PM AMBULATORY - PSYCHIATRY [facility] Oct 30, 2024 01:00 PM AMBULATORY - PSYCHIATRY [facility] Nov 27, 2024 01:00 PM AMBULATORY - PSYCHIATRY [facility] Dec 04, 2024 01:00 PM AMBULATORY - PSYCHIATRY [facility] Dec 11, 2024 01:00 PM AMBULATORY - PSYCHIATRY [facility] Dec 18, 2024 01:00 PM AMBULATORY - PSYCHIATRY [facility] Dec 25, 2024 01:00 PM AMBULATORY - PSYCHIATRY [facility] February 05, 2025 09:30 AM AMBULATORY - PSYCHIATRY [facility] Lab Results: +/- 30 days of the encounter This section includes the Chemistry and Hematology Lab Results on record with [place] for the patient. Radiology Reports and Pathology Reports are provided separately, in subsequent sections. Lab Results This section contains the Chemistry/Hematology Results that were resulted 30 days before or 30 daysafter the date of the Encounter. Date/Time Source Result Type Result - Unit Interpretation Reference Range Specimen Type Comment Sep 03, 2024 12:00 PM [facility] URINE DRUG SCREEN (STL) URINE Specimen Type: URINE Comment: The cut-off value for Fentanyl was laboratory developed and its performance characteristics confirmed by the [facility] laboratory thru method comparison with reference laboratory and medication chart review. The laboratory is regulated under CLIA as qualified to perform high-complexity testing. Fentanyl is used for clinical purposes in conjunction with other laboratory tests. Ordering Provider: DANIEL GOMEZ Report Released Date/Time: Sep 02, 2024 08:27 PM Reporting Lab: [facility] [phone] Performing Lab: [facility] [phone] ETHANOL <10.0 mg/dL 0-9 AMPHET/METHAMPHETAMINE Negative ng/mL COCAINE METABOLITES Negative ng/mL BENZODIAZEPINES (STL) Negative ng/mL CANNABINOIDS POSITIVE ng/mL METHADONE Negative ng/mL OPIATES Negative ng/mL CREATININE URINE/OTHERS 110.1 mg/dL H 47.0 -110.0 OXYCODONE ([id number]) Negative ng/mL BUPRENORPHINE (STL-PB-MA) Negative ng/mL FENTANYL (STL-PB) Negative ng/mL Aug 25, 2024 02:03 PM [facility] URINE DRUG SCREEN (STL) URINE Specimen Type: URINE Comment: The cut-off value for Fentanyl was laboratory developed and its performance characteristics confirmed by the [facility] laboratory thru method comparison with reference laboratory and medication chart review. The laboratory is regulated under CLIA as qualified to perform high-complexity testing. Fentanyl is used for clinical purposes in conjunction with other laboratory tests. Ordering Provider: DANIEL GOMEZ Report Released Date/Time: Aug 24, 2024 07:24 PM Reporting Lab: [facility] [address] [facility] [address] Performing Lab: [facility] [address] [facility] [address] ETHANOL Negative mg/dL 0-20 AMPHET/METHAMPHETAMINE Negative ng/mL COCAINE METABOLITES Negative ng/mL BENZODIAZEPINES (STL) Negative ng/mL CANNABINOIDS POSITIVE ng/mL METHADONE Negative ng/mL OPIATES Negative ng/mL CREATININE URINE/OTHERS 39.0 mg/dL L 47-11 0 OXYCODONE ([id number]) Negative ng/mL BUPRENORPHINE (STL-PB-MA) Negative ng/mL FENTANYL (STL-PB) Negative ng/mL Aug 20, 2024 07:13 AM [facility] URINALYSIS W/ CX REFLEX (STL-PB) URINE Specim en Type: URINE No comment entered. Ordering Provider: DANIEL GOMEZ Report Released Date/Time: Aug 19, 2024 11:04 AM Reporting Lab: [facility] [place] [address] Performing Lab: [facility] [phone] URINE COLOR Yellow Yellow U.BILIRUBIN Negative mg/dL [...] GRAVITY 1.028 Aug 19, 2024 10:08 AM [facility] URINALYSIS (L-PB) URINE Specimen Type: URIN E No comment entered. Ordering Provider: DANIEL GOMEZ Report Released Date/Time: Aug 16, 2024 03:45 PM Reporting Lab: [facility] [phone] Performing Lab: [facility] [place] [address] URINE COLOR Yellow Yellow U.BILIRUBIN Negative mg/dL [...] 1.035 H Aug 19, 2024 10:08 AM [facility] TEST URINE (MA-STL) URINE Specimen Type: URINE No comment entered. Ordering Provider: DANIEL GOMEZ Report Released Date/Time: Aug 16, 2024 03:45 PM Reporting Lab: [facility] [place] [address] Performing Lab: [facility] [phone] Qualitative Test NEG NEGAT URBAN Aug 19, 2024 10:08 AM [facility] URINE DRUG SCREEN (STL) URINE Specimen Type: URINE Comment: The cut-off value for Fentanyl was laboratory developed and its performance characteristics confirmed by the [facility] laboratory thru method comparison with reference laboratory and medication chart review. The laboratory is regulated under CLIA as qualified to perform high-complexity testing. Fentanyl is used for clinical purposes in conjunction with other laboratory tests. Ordering Provider: DANIEL GOMEZ Report Released Date/Time: Aug 16, 2024 03:45 PM Reporting Lab: [facility] [address] Performing Lab: [facility] [address] ETHANOL Negative mg/dL 0-20 AMPHET/METHAMPHETAMINE Negative ng/mL COCAINE METABOLITES Negative ng/mL BENZODIAZEPINES (STL) Negative ng/mL CANNABINOIDS POSITIVE ng/mL METHADONE Negative ng/mL OPIATES POSITIVE ng/mL CREATININE URINE/OTHERS 266.1 mg/dL H 47.0 -110.0 OXYCODONE ([id number]) Negative ng/mL BUPRENORPHINE (STL-PB-MA) Negative ng/mL FENTANYL (STL-PB) Negative ng/mL Aug 19, 2024 10:00 AM [facility] CBC BLOOD Specimen Type: BLOOD No comment entered. Ordering Provider: DANIEL GOMEZ Report Released Date/Time: Aug 16, 2024 03:45 PM Reporting Lab: [facility] [address] Performing Lab: [facility] [address] WBC 12.7 10*3/uL H 3.6-11.2 RBC 4.19 [...] 0.00-0. 20 Aug 19, 2024 09:59 AM [facility] PT/INR NEW (STL-MA) PLASMA Specimen Type: PLAS MA No comment entered. Ordering Provider: DANIEL GOMEZ Report Released Date/Time: Aug 16, 2024 03:45 PM Reporting Lab: [facility] [place] [address] Performing Lab: [facility] [place] [address] PROTIME 9.4 s 9.4-12.5 INR VALUE 0.8 {INR} Aug 19, 2024 09:59 AM [facility] COMPREHENSIVE METABOLIC PANEL PLASMA Specimen Type: PLASMA Comment: No hemolysis noted. Ordering Provider: DANIEL GOMEZ Report Released Date/Time: Aug 16, 2024 03:45 PM Reporting Lab: [facility] [place] [address] Performing Lab: [facility] [place] [address] CREATININE 0.75 mg/dL 0.60-1.10 UREA NITROGEN 12.0 [...] 104.44 >60 Aug 19, 2024 09:59 AM [facility] ETHANOL SERUM/PLASMA (STL) PLASMA Specimen Typ e: PLASMA Comment: No hemolysis noted. Ordering Provider: DANIEL GOMEZ Report Released Date/Time: Aug 16, 2024 03:45 PM Reporting Lab: [facility] [place] [phone] Performing Lab: [facility] [place] [address] ETHANOL SERUM/PLASMA (STL) <10.0 mg/dL 0 -10 Aug 19, 2024 09:59 AM [facility] GGT GAMMA-GT PLASMA Specimen Type: PLASM A No comment entered. Ordering Provider: DANIEL GOMEZ Report Released Date/Time: Aug 16, 2024 03:45 PM Reporting Lab: [facility] [address] [facility] [address] Performing Lab: [facility] [address] [facility] [address] GGT GAMMA-GT 14 [IU]/L 12-64 Aug 19, 2024 09:59 AM [facility] MAGNESIUM PLASMA Specimen Type: PLASM A Comment: No hemolysis noted. Ordering Provider: DANIEL GOMEZ Report Released Date/Time: Aug 16, 2024 03:45 PM Reporting Lab: [facility] [address] Performing Lab: [facility] [address] MAGNESIUM 2.1 mg/dL 1.6-2.6 Aug 19, 2024 09:[address] [facility] CPK SERUM Specimen Type: SERUM No comment entered. Ordering Provider: DANIEL GOMEZ Report Released Date/Time: Aug 16, 2024 03:45 PM Reporting Lab: [facility] [address] Performing Lab: [facility] [address] CPK 37 U/L 29-168 Aug 19, 2024 09:59 AM [facility] HEP C Ab HCV Ab (STL) SERUM Specimen Type: SE RUM No comment entered. Ordering Provider: DANIEL GOMEZ Report Released Date/Time: Aug 16, 2024 03:45 PM Reporting Lab: [facility] [address] [facility] [address] Performing Lab: [facility] [address] [facility] [address] HEP C Ab HCV Ab (STL) Nonreactive Nonrea ctive Aug 19, 2024 09:59 AM [facility] HIV COMBO FOURTH GENERATION (STL) SERUM Speci men Type: SERUM No comment entered. Ordering Provider: DANIEL GOMEZ Report Released Date/Time: Aug 16, 2024 03:45 PM Reporting Lab: [facility] [address] [facility] [address] Performing Lab: [place] [id number] [facility] [address] HIV COMBO FOURTH GENERATION (STL) Nonreactive Nonreactive Social History: Smoking Status (Most current) and Tobacco Use (All prior to encounter date) This section includes the most current, and the historical, smoking and tobacco- related health factors from the [place] facility where the Encounter took place. Current Smoking Status This section includes the most current smoking, or tobacco-related health factor, from the [place] facility where the Encounter took place. Date/Time Current Smoking Status Comment Facil ity Aug 19, 2024 10:33 AM VA-TOBACCO USE ALFONZO RY DAY CIGARETTES [facility] Tobacco Use History This section includes a history of the smoking, or tobacco-related health factors, that were collected on or before the date of the Encounter. The data comes from the [place] facility where the Encounter took place. Date/Time Smoking Status/Tobacco Use Comment F acility Aug 19, 2024 10:33 AM VA-TOBACCO SCREEN FOLLOW-UP [facility] Aug 19, 2024 10:33 AM VA-TOBACCO USE ADVICE [facility] Aug 19, 2024 10:33 AM VA-TOBACCO USE VIDEO OPERATOR NO [facility] Aug 19, 2024 10:33 AM VA-TOBACCO USE ALFONZO RY DAY CIGARETTES [facility] Aug 19, 2024 10:33 AM VA-TOBACCO USE MED YES [facility] Aug 19, 2024 10:33 AM VA-TOBACCO USE WI 30 MIN OF WAKEUP [facility] Encounter Notes: All associated encounter notes This section contains the clinical notes associated to the Encounter. Date/Time Encounter Note(s) Provider Source Sep 09, 2024 11:27 AM SUICIDE PREVENTION RISK ASSESSMENT SCREENING NOTE: LOCAL TITLE: SUICIDE RISK EVALUATION - COMPREHENSIVE STANDARD TITLE: SUICIDE PREVENTION RISK ASSESSMENT SCREENING NOT DATE OF NOTE: SEP 09, 2024@11:27 ENTRY DATE: SEP 09, 2024@11:27:56 AUTHOR: [facility]: URGENCY: STATUS: COMPLETED Comprehensive Suicide Risk Evaluation --------- This is an update to an existing suicide risk evaluation. The validity of the information contained within this evaluation is not in question. Suicidal Ideation The most recent thoughts of engaging in suicide-related behavior were within the past 30 days. suicidal thoughts without plan 09/02/24 - denies since The [place] did not have suicidal intent at the time of the most recent ideation. The did not have a suicide plan at the time of the most recent ideation. It is not known or unclear if the most recent suicidal ideation was the most severe ideation within the last 30 days. The [place] does have access to lethal means (firearms). Number of firearms and storage practice: father owns gun store The [place] does not have access to other lethal means. Suicidal Behavior The [place] has not made any suicide attempts since the last [place] Comprehensive Suicide Risk Evaluation was completed. The did not report any prior preparatory behaviors that have not been previously documented. Warning Signs The following warning signs are currently present for the [place]: None noted Additional past warning signs include: Risk Factors [...] Low ACUTE Risk. As evidenced by: Denies SI, no current intent or recent preparatory behaviors. Motivated to get [place] benefits, to continue with AA/NA in her community. The clinical impression of chronic risk is [...] was developed in collaboration with the . Risk Mitigation Plan: Strategies for Managing Risk in OUTPATIENT setting Suicide Talent Scout was not alerted for consideration of a Patient Record Flag Category I High Risk for Suicide. Discuss with [place] ways to increase a sense of purpose and meaning Discuss with ways to increase social connections/social supports Provide with phone number for [place]'s Crisis Line: Dial 464 (Press 1), Text to [phone], or Chat Re-evaluation: Due to the dynamic nature of some warning signs, risk and protective factors, suicide risk should be routinely re-evaluated. These risk management strategies were chosen to address [place]'s current presentation and feasible treatment options within the system of care. This plan should be re-evaluated over time. /sanjeev/ [facility] Advanced Practice Registered Nurse - Mental Health Signed: 09/09/2024 11:33 [facility]
--- OUTSIDE RECORDS SUMMARY | 2025-02-23 10:58 | XMS_ITS | Encounter Summary ---
Author Name [facility] ([place]) Organization [facility] (OR) Address [address] [place] [id number] Support Name Relationship Address Phone FUAD CHRISTINE [...] MEDIC AID Aug 02, 2015 MEDICAI D [id number] [phone] STACIE JENNIFER PATIENT [facility] (WNR) MEDICAID MEDIC AID [facility] (WNR) Dec 01, 2023 MEDICAI D [id number] STACIE JENNIFER PATIENT Selected Encounter This section includes the information on record at OR for the Encounter. Date/Time Encounter Type Encounter Description Reason Provider Source Aug 28, 2024 01:15 PM GROUP PSYCHOTHERAPY [facility] GROUP ICD-10-CM F12.10 Cannabis abuse, uncomplicated BACKES,SHIKHA Sosa [facility] Encounter Template Text not used by OR Assessments - Encounter Diagnoses This section includes the primary and secondary diagnoses documented for the Encounter. Date/Time Primary/Secondary Diagnosis Diagnosis Name Provider Source Aug 28, 2024 02:58 PM PRIMARY Cannabis abuse, uncomplicated BACKES,LUIS CARLOS Sosa [facility] Aug 28, 2024 02:58 PM SECONDARY Cocaine use, unspecified, uncomplicated BACKES,LUIS CARLOS Sosa [facility] Aug 28, 2024 02:58 PM SECONDARY Opioid use, unspecified, uncomplicated BACKES,KALASHELLIG H M [facility] Plan of Treatment: Future Appointments (+ 6 months) and Future Tests (+/- 45 days) The Plan of Treatment section includes future care activities for the patient from all OR treatmentfacilities. This section includes future appointments and future orders which are active, pending or scheduled. Future Appointments This section includes appointments that were scheduled to occur 6 months from the date of the Encounter, up to a maximum of 20 appointments. The data comes from all [place] treatment facilities. Appointment Date/Time Appointment Type Appointme nt Facility Name Sep 10, 2024 12:30 PM AMBULATORY - PSYCHIATRY [facility] Sep 12, 2024 06:00 PM AMBULATORY - PSYCHIATRY [facility] Sep 17, 2024 06:00 PM AMBULATORY - PSYCHIATRY [facility] Sep 19, 2024 06:00 PM AMBULATORY - PSYCHIATRY [facility] Sep 26, 2024 06:00 PM AMBULATORY - PSYCHIATRY [facility] Oct 01, 2024 02:00 PM AMBULATORY - NONE [facility] Oct 09, 2024 03:00 PM AMBULATORY - MEDICINE [facility] Oct 16, 2024 01:00 PM AMBULATORY - PSYCHIATRY [facility] Oct 30, 2024 01:00 PM AMBULATORY - PSYCHIATRY [facility] Nov 27, 2024 01:00 PM AMBULATORY - PSYCHIATRY [facility] Dec 04, 2024 01:00 PM AMBULATORY - PSYCHIATRY [facility] Dec 11, 2024 01:00 PM AMBULATORY - PSYCHIATRY [facility] Dec 18, 2024 01:00 PM AMBULATORY - PSYCHIATRY [facility] Dec 25, 2024 01:00 PM AMBULATORY - PSYCHIATRY [facility] February 05, 2025 09:30 AM AMBULATORY - PSYCHIATRY [facility] Lab Results: +/- 30 days of the encounter This section includes the Chemistry and Hematology Lab Results on record with OR for the patient. Radiology Reports and Pathology Reports are provided separately, in subsequent sections. Lab Results This section contains the Chemistry/Hematology Results that were resulted 30 days before or 30 daysafter the date of the Encounter. Date/Time Source Result Type Result - Unit Interpretation Reference Range Specimen Type Comment Sep 03, 2024 12:00 PM [facility] URINE DRUG SCREEN (STL) URINE Specimen Type: URINE Comment: The cut-off value for Fentanyl was laboratory developed and its performance characteristics confirmed by the [facility] laboratory thru method comparison with reference laboratory and medication chart review. The laboratory is regulated under CLIA as qualified to perform high-complexity testing. Fentanyl is used for clinical purposes in conjunction with other laboratory tests. Ordering Provider: DANIEL GOMEZ Report Released Date/Time: Sep 02, 2024 08:27 PM Reporting Lab: [facility] [address] Performing Lab: [facility] [phone] ETHANOL <10.0 mg/dL 0-9 AMPHET/METHAMPHETAMINE Negative ng/mL COCAINE METABOLITES Negative ng/mL BENZODIAZEPINES (STL) Negative ng/mL CANNABINOIDS POSITIVE ng/mL METHADONE Negative ng/mL OPIATES Negative ng/mL CREATININE URINE/OTHERS 110.1 mg/dL H 47.0 -110.0 OXYCODONE ([id number]) Negative ng/mL BUPRENORPHINE (STL-PB-MA) Negative ng/mL FENTANYL (STL-PB) Negative ng/mL Aug 25, 2024 02:03 PM [facility] URINE DRUG SCREEN (STL) URINE Specimen Type: URINE Comment: The cut-off value for Fentanyl was laboratory developed and its performance characteristics confirmed by the [facility] laboratory thru method comparison with reference laboratory and medication chart review. The laboratory is regulated under CLIA as qualified to perform high-complexity testing. Fentanyl is used for clinical purposes in conjunction with other laboratory tests. Ordering Provider: DANIEL GOMEZ Report Released Date/Time: Aug 24, 2024 07:24 PM Reporting Lab: [facility] [address] [facility] [phone] Performing Lab: [place] [address] [facility] [address] ETHANOL Negative mg/dL 0-20 AMPHET/METHAMPHETAMINE Negative ng/mL COCAINE METABOLITES Negative ng/mL BENZODIAZEPINES (STL) Negative ng/mL CANNABINOIDS POSITIVE ng/mL METHADONE Negative ng/mL OPIATES Negative ng/mL CREATININE URINE/OTHERS 39.0 mg/dL L 47-11 0 OXYCODONE (PICGZ-CRU-EO) Negative ng/mL BUPRENORPHINE (STL-PB-MA) Negative ng/mL FENTANYL (STL-PB) Negative ng/mL Aug 20, 2024 07:13 AM [facility] URINALYSIS W/ CX REFLEX (STL-PB) URINE Specim en Type: URINE No comment entered. Ordering Provider: DANIEL GOMEZ Report Released Date/Time: Aug 19, 2024 11:04 AM Reporting Lab: [facility] [place] [address] Performing Lab: [facility] [place] [address] URINE COLOR Yellow Yellow U.BILIRUBIN Negative mg/dL [...] 1.028 Aug 19, 2024 10:08 AM [facility] URINALYSIS (STL-PB) URINE Specimen Type: URIN E No comment entered. Ordering Provider: DANIEL GOMEZ Report Released Date/Time: Aug 16, 2024 03:45 PM Reporting Lab: [facility] [place] [address] Performing Lab: [facility] [address] [place] [address] URINE COLOR Yellow Yellow U.BILIRUBIN Negative mg/dL [...] H Aug 19, 2024 10:08 AM [facility] TEST URINE (MA-STL) URINE Specimen Type: URINE No comment entered. Ordering Provider: DANIEL GOMEZ Report Released Date/Time: Aug 16, 2024 03:45 PM Reporting Lab: [facility] [phone] Performing Lab: [facility] [facility] [phone] Qualitative Test NEG NEGAT URBAN Aug 19, 2024 10:08 AM [facility] URINE DRUG SCREEN (STL) URINE Specimen Type: URINE Comment: The cut-off value for Fentanyl was laboratory developed and its performance characteristics confirmed by the [facility] laboratory thru method comparison with reference laboratory and medication chart review. The laboratory is regulated under CLIA as qualified to perform high-complexity testing. Fentanyl is used for clinical purposes in conjunction with other laboratory tests. Ordering Provider: DANIEL GOMEZ Report Released Date/Time: Aug 16, 2024 03:45 PM Reporting Lab: [facility] [address] Performing Lab: [facility] [phone] ETHANOL Negative mg/dL 0-20 AMPHET/METHAMPHETAMINE Negative ng/mL COCAINE METABOLITES Negative ng/mL BENZODIAZEPINES (STL) Negative ng/mL CANNABINOIDS POSITIVE ng/mL METHADONE Negative ng/mL OPIATES POSITIVE ng/mL CREATININE URINE/OTHERS 266.1 mg/dL H 47.0 -110.0 OXYCODONE (IVFSK-CHE-IS) Negative ng/mL BUPRENORPHINE (STL-PB-MA) Negative ng/mL FENTANYL (STL-PB) Negative ng/mL Aug 19, 2024 10:00 AM [facility] CBC BLOOD Specimen Type: BLOOD No comment entered. Ordering Provider: DANIEL GOMEZ Report Released Date/Time: Aug 16, 2024 03:45 PM Reporting Lab: [facility] [address] Performing Lab: [facility] [address] WBC 12.7 10*3/uL H 3.6-11.2 RBC 4.19 [...] 20 Aug 19, 2024 09:59 AM [facility] COMPREHENSIVE METABOLIC PANEL PLASMA Specimen Type: PLASMA Comment: No hemolysis noted. Ordering Provider: DANIEL GOMEZ Report Released Date/Time: Aug 16, 2024 03:45 PM Reporting Lab: [facility] [address] Performing Lab: [facility] [facility] [address] CREATININE 0.75 mg/dL 0.60-1.10 UREA NITROGEN 12.0 [...] >60 Aug 19, 2024 09:59 AM [facility] PT/INR NEW (STL-MA) PLASMA Specimen Type: PLAS MA No comment entered. Ordering Provider: DANIEL GOMEZ Report Released Date/Time: Aug 16, 2024 03:45 PM Reporting Lab: [facility] [place] [address] Performing Lab: [facility] [place] [phone] PROTIME 9.4 s 9.4-12.5 INR VALUE 0.8 {INR} Aug 19, 2024 09:59 AM [facility] ETHANOL SERUM/PLASMA (STL) PLASMA Specimen Typ e: PLASMA Comment: No hemolysis noted. Ordering Provider: DANIEL GOMEZ Report Released Date/Time: Aug 16, 2024 03:45 PM Reporting Lab: [facility] [place] [phone] Performing Lab: [facility] [address] ETHANOL SERUM/PLASMA (STL) <10.0 mg/dL 0 -10 Aug 19, 2024 09:59 AM [facility] GGT GAMMA-GT PLASMA Specimen Type: PLASM A No comment entered. Ordering Provider: DANIEL GOMEZ Report Released Date/Time: Aug 16, 2024 03:45 PM Reporting Lab: [facility] [address] [facility] [address] Performing Lab: [facility] [address] [facility] [address] GGT GAMMA-GT 14 [IU]/L 12-64 Aug 19, 2024 09:59 AM [facility] MAGNESIUM PLASMA Specimen Type: PLASM A Comment: No hemolysis noted. Ordering Provider: DANIEL GOMEZ Report Released Date/Time: Aug 16, 2024 03:45 PM Reporting Lab: [facility] [phone] Performing Lab: [facility] [address] MAGNESIUM 2.1 mg/dL 1.6-2.6 Aug 19, 2024 09:59 AM [facility] CPK SERUM Specimen Type: SERUM No comment entered. Ordering Provider: DANIEL GOMEZ Report Released Date/Time: Aug 16, 2024 03:45 PM Reporting Lab: [facility] [facility] [phone] Performing Lab: [facility] [facility] [address] CPK 37 U/L 29-168 Aug 19, 2024 09:59 AM [facility] HEP C Ab HCV Ab (STL) SERUM Specimen Type: SE RUM No comment entered. Ordering Provider: DANIEL GOMEZ Report Released Date/Time: Aug 16, 2024 03:45 PM Reporting Lab: [facility] [address] [facility] [address] Performing Lab: [facility] [address] [facility] [phone] HEP C Ab HCV Ab (STL) Nonreactive Nonrea ctive Aug 19, 2024 09:59 AM [facility] HIV COMBO FOURTH GENERATION (STL) SERUM Speci men Type: SERUM No comment entered. Ordering Provider: DANIEL GOMEZ Report Released Date/Time: Aug 16, 2024 03:45 PM Reporting Lab: [facility] [address] [facility] [address] Performing Lab: [facility] [address] [facility] [address] HIV COMBO FOURTH GENERATION (STL) Nonreactive Nonreactive Social History: Smoking Status (Most current) and Tobacco Use (All prior to encounter date) This section includes the most current, and the historical, smoking and tobacco- related health factors from the [place] facility where the Encounter took place. Current Smoking Status This section includes the most current smoking, or tobacco-related health factor, from the [place] facility where the Encounter took place. Date/Time Current Smoking Status Comment Facil ity Aug 19, 2024 10:33 AM VA-TOBACCO USE ALFONZO RY DAY CIGARETTES [facility] Tobacco Use History This section includes a history of the smoking, or tobacco-related health factors, that were collected on or before the date of the Encounter. The data comes from the [place] facility where the Encounter took place. 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 Date/Time Encounter Note(s) Provider Source Aug 28, 2024 02:49 PM SOCIAL WORK GROUP COUNSELING NOTE: LOCAL TITLE: SW GROUP PSYCHOTHERAPY STL STANDARD TITLE: SOCIAL WORK GROUP COUNSELING NOTE DATE OF NOTE: AUG 28, 2024@14:49 ENTRY DATE: AUG 28, 2024@14:49:26 AUTHOR: JENELLE RAMOS COSIGNER: MEKA HANNON URGENCY: STATUS: COMPLETED SW GROUP PSYCHOTHERAPY STL Has ADDENDA TITLE: [facility] GROUP PSYCHOTHERAPY CPT Code: 33342 Date: 08/28/2024 TIME OF GROUP: [id number] ALL PURPOSE CLERK: Jenelle Ramos LMSW THERAPY FORMAT / INTERVENTION TYPE: (x) Cognitive-behavioral skills (x) Motivational interviewing (x) Problem solving skills (x) Relapse prevention skills ( ) Dialectical Behavior Therapy ( ) Supportive psychotherapy SESSION TITLE/GROUP CONTENT: This INTERPERSONAL PROCESS GROUP is intended to help veterans explore their beliefs about their substance use, the impact of their substance use on their lives and factors that influence their decision to return to using or to remain abstinent. This group also explores their awareness and understanding of previous attempts to remain abstinent. Veterans are encouraged to identify factors that contributed to periods of success with respect to abstinence and factors that contributed to their return to such use. Todays group began by utilizing the recovery ball, an ice breaker tool, to present questions that enhance motivation for change. Outgoing group members shared: one thing they have learned in treatment, one thing they are looking forward to about recovery, and advice to peers. For processing, one shared his experience calling his estranged daughter, where the outcome was quite positive. Group members affirmed his efforts, leading to a discussion surrounding difficult conversations in recovery. Group members discussed apologizing, setting boundaries, fear of unknown, and anticipated responses as reasons for not having said conversations, while also identifying potential outcomes should they not have these conversations. OBJECTIVE: Objective: I will not use any drugs or alcohol for at least 3 weeks in treatment & 6 months in aftercare as shown by Random UDS's/THERESE's INTERVENTION: My provider will work with me to achieve this goal and objective through Random THERESE's/UDS's, individual counseling, group therapy, educational groups, scheduled aftercare weekly for 6 months. Provider: Treatment Team: JANESSA [id number] Intervention: Group therapy three times per week while enrolled in [facility]. RISK ASSESSMENT: No new risk factors relevant to suicide or homicide were reported. No report of suicidal ideation or aggressive impulses. [place] did not appear to be at imminent risk of harm to self or other. REACTION: The was alert and attentive. Actively participated in the group interaction in an appropriate manner, gave feedback, and was receptive to feedback from group members. Diagnoses: Diagnoses: Primary Cannabis abuse ([facility] [id number]) - Cannabis abuse, uncomplicated (ICD- 10-CM F12.10) Secondary Cocaine user ([facility] [id number]) - Cocaine use, unspecified, uncomplicated (ICD-10-CM F14.90) Secondary Opioid dependence ([facility] [id number]) - Opioid use, unspecified, uncomplicated (ICD-10-CM F11.90) /saravanan Mercado WorkerLEVI [facility] Signed: 08/28/2024 15:00 /ADINA Campbell LCSW Clinical Hatchery Manager Cosigned: 08/28/2024 15:26 08/28/2024 ADDENDUM STATUS: COMPLETED I concur with assessment, interventions, and plan of action detailed in this record. The services provided by this Social Work AGRICULTURAL SERVICE TECHNICIAN are reviewed during weekly [id number] supervision and conducted with sufficient time to meet, or exceed, supervision amounts required by A, licensure, and accreditation mandates. /ADINA Campbell LCSW Clinical Hatchery Manager Signed: 08/28/2024 15:27 JENELLE RAMOS [facility]
--- OUTSIDE RECORDS SUMMARY | 2025-02-23 10:58 | XMS_ITS | Encounter Summary ---
Author Name [facility] ([place]) Organization [facility] [place]) Address [address] [place] [address] Support Name Relationship Address Phone FUAD CHRISTINE [...] MEDIC AID Aug 02, 2015 MEDICAI D [id number] [phone] JENNIFER QUINONES PATIENT [facility] (WNR) MEDICAID MEDIC AID [facility] (WNR) Dec 01, 2023 MEDICAI D [id number] JENNIFER QUINONES PATIENT Selected Encounter This section includes the information on record at OR for the Encounter. Date/Time Encounter Type Encounter Description Reason Provider Source Aug 26, 2024 01:40 PM OFFICE O/P EST MOD 30 MIN RRTP INDIVIDUAL ICD-10-CM F43.12 Post-traumatic stress disorder, chronic DMOINGUEZ SHAIKH E Encounter Template Text not used by OR Assessments - Encounter Diagnoses This section includes the primary and secondary diagnoses documented for the Encounter. Date/Time Primary/Secondary Diagnosis Diagnosis Name Provider Source Aug 26, 2024 01:54 PM PRIMARY Post-traumatic stress disorder, chronic DOMINGUEZ SHAIKH [facility] Plan of Treatment: Future Appointments (+ 6 months) and Future Tests (+/- 45 days) The Plan of Treatment section includes future care activities for the [facility]. This section includes future appointments and [...] 2024 12:30 PM AMBULATORY - PSYCHIATRY [facility] Sep 12, 2024 06:00 PM AMBULATORY - PSYCHIATRY [facility] Sep 17, 2024 06:00 PM AMBULATORY - PSYCHIATRY [facility] Sep 19, 2024 06:00 PM AMBULATORY - PSYCHIATRY [facility] Sep 26, 2024 06:00 PM AMBULATORY - PSYCHIATRY [facility] Oct 01, 2024 02:00 PM AMBULATORY - NONE [facility] Oct 09, 2024 03:00 PM AMBULATORY - MEDICINE [facility] Oct 16, 2024 01:00 PM AMBULATORY - PSYCHIATRY [facility] Oct 30, 2024 01:00 PM AMBULATORY - PSYCHIATRY [facility] Nov 27, 2024 01:00 PM AMBULATORY - PSYCHIATRY [facility] Dec 04, 2024 01:00 PM AMBULATORY - PSYCHIATRY [facility] Dec 11, 2024 01:00 PM AMBULATORY - PSYCHIATRY [facility] Dec 18, 2024 01:00 PM AMBULATORY - PSYCHIATRY [facility] Dec 25, 2024 01:00 PM AMBULATORY - PSYCHIATRY [facility] February 05, 2025 09:30 AM AMBULATORY - PSYCHIATRY [facility] Lab Results: +/- 30 days of [...] Sep 03, 2024 12:00 PM [facility] URINE DRUG SCREEN (STL) URINE Specimen Type: URINE Comment: The cut-off value for Fentanyl was laboratory developed and its performance characteristics confirmed by the [facility] laboratory thru method comparison with reference laboratory and medication chart review. The laboratory is regulated under CLIA as qualified to perform high-complexity testing. Fentanyl is used for clinical purposes in conjunction with other laboratory tests. Ordering Provider: DANIEL GOMEZ Report Released Date/Time: Sep 02, 2024 08:27 PM Reporting Lab: [facility] [address] [facility] [address] Performing Lab: [facility] [facility] [address] ETHANOL <10.0 mg/dL 0-9 AMPHET/METHAMPHETAMINE Negative ng/mL COCAINE METABOLITES Negative ng/mL BENZODIAZEPINES (STL) Negative ng/mL CANNABINOIDS POSITIVE ng/mL METHADONE Negative ng/mL OPIATES Negative ng/mL CREATININE URINE/OTHERS 110.1 mg/dL H 47.0 -110.0 OXYCODONE ([id number]) Negative ng/mL BUPRENORPHINE (STL-PB-MA) Negative ng/mL FENTANYL (STL-PB) Negative ng/mL Aug 25, 2024 02:[address] [facility] URINE DRUG SCREEN (STL) URINE Specimen Type: URINE Comment: The cut-off value for Fentanyl was laboratory developed and its performance characteristics confirmed by the [facility] laboratory thru method comparison with reference laboratory and medication chart review. The laboratory is regulated under CLIA as qualified to perform high-complexity testing. Fentanyl is used for clinical purposes in conjunction with other laboratory tests. Ordering Provider: DANIEL GOMEZ Report Released Date/Time: Aug 24, 2024 07:24 PM Reporting Lab: [facility] [address] [facility] [address] Performing Lab: [facility] [address] [facility] [address] ETHANOL Negative mg/dL 0-20 AMPHET/METHAMPHETAMINE Negative ng/mL COCAINE METABOLITES Negative ng/mL BENZODIAZEPINES (STL) Negative ng/mL CANNABINOIDS POSITIVE ng/mL METHADONE Negative ng/mL OPIATES Negative ng/mL CREATININE URINE/OTHERS 39.0 mg/dL L 47-11 0 OXYCODONE ([id number]) Negative ng/mL BUPRENORPHINE (STL-PB-MA) Negative ng/mL FENTANYL (STL-PB) Negative ng/mL Aug 20, 2024 07:13 AM [facility] URINALYSIS W/ CX REFLEX (STL-PB) URINE Specim en Type: URINE No comment entered. Ordering Provider: DANIEL GOMEZ Report Released Date/Time: Aug 19, 2024 11:04 AM Reporting Lab: [facility] [address] [place] [address] Performing Lab: [facility] [address] [place] [address] URINE COLOR Yellow Yellow U.BILIRUBIN Negative mg/dL [...] GRAVITY 1.028 Aug 19, 2024 10:[address] [facility] URINALYSIS (STL-PB) URINE Specimen Type: URIN E No comment entered. Ordering Provider: DANIEL GOMEZ Report Released Date/Time: Aug 16, 2024 03:45 PM Reporting Lab: [facility] [address] [facility] [address] Performing Lab: [facility] [address] [place] [address] URINE COLOR Yellow Yellow U.BILIRUBIN Negative mg/dL [...] Aug 19, 2024 10:08 AM [facility] TEST URINE (MA-STL) URINE Specimen Type: URINE No comment entered. Ordering Provider: DANIEL GOMEZ Report Released Date/Time: Aug 16, 2024 03:45 PM Reporting Lab: [facility] [address] [facility] [address] Performing Lab: [facility] [facility] [address] Qualitative Test NEG NEGAT URBAN Aug 19, 2024 10:08 AM [facility] URINE DRUG SCREEN (STL) URINE Specimen Type: URINE Comment: The cut-off value for Fentanyl was laboratory developed and its performance characteristics confirmed by the [facility] laboratory thru method comparison with reference laboratory and medication chart review. The laboratory is regulated under CLIA as qualified to perform high-complexity testing. Fentanyl is used for clinical purposes in conjunction with other laboratory tests. Ordering Provider: DANIEL GOMEZ Report Released Date/Time: Aug 16, 2024 03:45 PM Reporting Lab: [facility] [address] [facility] [address] Performing Lab: [facility] [address] [facility] [address] ETHANOL Negative mg/dL 0-20 AMPHET/METHAMPHETAMINE Negative ng/mL COCAINE METABOLITES Negative ng/mL BENZODIAZEPINES (STL) Negative ng/mL CANNABINOIDS POSITIVE ng/mL METHADONE Negative ng/mL OPIATES POSITIVE ng/mL CREATININE URINE/OTHERS 266.1 mg/dL H 47.0 -110.0 OXYCODONE ([id number]) Negative ng/mL BUPRENORPHINE (STL-PB-MA) Negative ng/mL FENTANYL (STL-PB) Negative ng/mL Aug 19, 2024 10:[address] [facility] CBC BLOOD Specimen Type: BLOOD No comment entered. Ordering Provider: DANIEL GOMEZ Report Released Date/Time: Aug 16, 2024 03:45 PM Reporting Lab: [facility] [address] [facility] [address] Performing Lab: [facility] [address] [facility] [address] WBC 12.7 10*3/uL H 3.6-11.2 RBC 4.19 [...] 19, 2024 09:59 AM [facility] COMPREHENSIVE METABOLIC PANEL PLASMA Specimen Type: PLASMA Comment: No hemolysis noted. Ordering Provider: DANIEL GOMEZ Report Released Date/Time: Aug 16, 2024 03:45 PM Reporting Lab: [facility] [address] [facility] [address] Performing Lab: [facility] [address] [facility] [address] CREATININE 0.75 mg/dL 0.60-1.10 UREA NITROGEN 12.0 [...] Aug 19, 2024 09:[address] [facility] PT/INR NEW (STL-MA) PLASMA Specimen Type: PLAS MA No comment entered. Ordering Provider: DANIEL GOMEZ Report Released Date/Time: Aug 16, 2024 03:45 PM Reporting Lab: [facility] [address] [facility] [address] Performing Lab: [facility] [address] [facility] [address] PROTIME 9.4 s 9.4-12.5 INR VALUE 0.8 {INR} Aug 19, 2024 09:[address] [facility] ETHANOL SERUM/PLASMA (STL) PLASMA Specimen Typ e: PLASMA Comment: No hemolysis noted. Ordering Provider: DANIEL GOMEZ Report Released Date/Time: Aug 16, 2024 03:45 PM Reporting Lab: [facility] [address] [facility] [address] Performing Lab: [facility] [address] [facility] [address] ETHANOL SERUM/PLASMA (STL) <10.0 mg/dL 0 -10 Aug 19, 2024 09:[address] [facility] GGT GAMMA-GT PLASMA Specimen Type: PLASM A No comment entered. Ordering Provider: DANIEL GOMEZ Report Released Date/Time: Aug 16, 2024 03:45 PM Reporting Lab: [facility] [address] [facility] [address] Performing Lab: [facility] [address] [facility] [address] GGT GAMMA-GT 14 [IU]/L 12-64 Aug 19, 2024 09:59 AM [facility] MAGNESIUM PLASMA Specimen Type: PLASM A Comment: No hemolysis noted. Ordering Provider: DANIEL GOMEZ Report Released Date/Time: Aug 16, 2024 03:45 PM Reporting Lab: [facility] [address] [facility] [address] Performing Lab: [facility] [address] [facility] [address] MAGNESIUM 2.1 mg/dL 1.6-2.6 Aug 19, 2024 09:59 AM [facility] CPK SERUM Specimen Type: SERUM No comment entered. Ordering Provider: DANIEL GOMEZ Report Released Date/Time: Aug 16, 2024 03:45 PM Reporting Lab: [facility] [address] [facility] [address] Performing Lab: [facility] [address] [facility] [address] CPK 37 U/L 29-168 Aug 19, 2024 09:59 AM [facility] HEP C Ab HCV Ab (STL) SERUM Specimen Type: SE RUM No comment entered. Ordering Provider: DANIEL GOMEZ Report Released Date/Time: Aug 16, 2024 03:45 PM Reporting Lab: [facility] [address] [facility] [address] Performing Lab: [facility] [address] [facility] [address] HEP C Ab HCV Ab (STL) Nonreactive Nonrea ctive Aug 19, 2024 09:59 AM [facility] HIV COMBO FOURTH GENERATION (STL) SERUM Speci men Type: SERUM No comment entered. Ordering Provider: SUBBAIAH,DANIEL Report Released Date/Time: Aug 16, 2024 03:45 PM Reporting Lab: [facility] [address] [facility] [address] Performing Lab: [facility] [address] [facility] [address] HIV COMBO FOURTH GENERATION (STL) Nonreactive Nonreactive [...] AM VA-TOBACCO USE ALFONZO RY DAY CIGARETTES [facility] Tobacco Use History This section includes a history of the smoking, or tobacco-related health factors, that were collected on or before the date of the Encounter. The data comes from the [place] facility where the Encounter took place. Date/Time Smoking Status/Tobacco Use Comment F acility Aug 19, 2024 10:33 AM VA-TOBACCO SCREEN FOLLOW-UP [facility] Aug 19, 2024 10:33 AM VA-TOBACCO USE ADVICE [facility] Aug 19, 2024 10:33 AM VA-TOBACCO USE COUTURIERE NO [facility] Aug 19, 2024 10:33 AM VA-TOBACCO USE ALFONZO RY DAY CIGARETTES [facility] Aug 19, 2024 10:33 AM VA-TOBACCO USE MED YES [facility] Aug 19, 2024 10:33 AM VA-TOBACCO USE WI 30 MIN OF WAKEUP [facility] Encounter Notes: All associated encounter notes This section contains the clinical notes associated to the Encounter. Date/Time Encounter Note(s) Provider Source Aug 26, 2024 01:43 PM PSYCHIATRY NOTE: LOCAL TITLE: PSYCHIATRY STL STANDARD TITLE: PSYCHIATRY NOTE DATE OF NOTE: AUG 26, 2024@13:43 ENTRY DATE: AUG 26, 2024@13:43:16 AUTHOR: DOMINGUEZ SHAIKH COSIGNER: URGENCY: STATUS: COMPLETED Name..................EMILIANO CARRIE,JENNIFER MEJIAE Age...................39 Sex...................AILEEN GIBBS N...................[id number] Today's Date..........AUG 26, 2024 Service Connection....Service Connected: No ALLERGIES: BACTRIM, [...] MOUTH EVERY MORNING Expr:08-21-25 7) HYDROXYZINE HCL 50MG TAB Qty: 7 for 7 ACTIVE Issu:08-23-24 days Sig: TAKE ONE TABLET BY MOUTH AT Refills: 2 Last:08-23-24 BEDTIME NEEDED *MAY CAUSE Expr:08-24-25 DROWSINESS* 8) IBUPROFEN 800MG TAB Qty: 21 [...] ALLERGIC RHINITIS ON Expr:08-21-25 EMPTY STOMACH 10) MELATONIN 3MG CAP/TAB Qty: 7 for 7 days ACTIVE Issu:08-23-24 Sig: TAKE ONE CAP/TAB BY MOUTH AT Refills: 2 Last:08-23-24 BEDTIME NEEDED Expr:08-24-25 11) NALOXONE HCL 4MG/SPRAY SOLN NASAL SPRAY ACTIVE [...] USED, NOTIFY PROVIDER. 12) NICOTINE 14MG/24HR PATCH Qty: 28 for 28 ACTIVE Issu:05-22-24 days Sig: APPLY 1 PATCH TO SKIN SITE Refills: 3 Last:05-22-24 EVERY MORNING REMOVE OLD PATCH BEFORE Expr:05-23-25 APPLYING NEW ONE. ROTATE SITES. DO NOT SMOKE WHILE WEARING PATCH. 13) NICOTINE 21MG/24HR PATCH Qty: 28 for 28 ACTIVE Issu:08-20-24 days Sig: APPLY 1 PATCH TO SKIN SITE Refills: 0 Last:08-20-24 EVERY MORNING REMOVE OLD PATCH BEFORE Expr:09-19-24 APPLYING NEW ONE. ROTATE SITES. DO NOT SMOKE WHILE WEARING PATCH. 14) NICOTINE 4MG GUM Qty: 110 for 30 days ACTIVE Issu:08-20-24 Sig: CHEW 1 PIECE OF GUM BY MOUTH Refills: 0 Last:08-20-24 EVERY 4 HOURS NEEDED CHEW GUM UNTIL Expr:09-19-24 TINGLING SENSATION, THEN PARK THE GUM BETWEEN CHEEK AND GUM AREA. REPEAT (RE-CHEW) WHEN TINGLING STOPS. 15) NICOTINE 7MG/24HR PATCH Qty: 28 for 28 ACTIVE Issu:05-22-24 days Sig: APPLY 1 PATCH TO SKIN SITE Refills: 3 Last:05-22-24 EVERY MORNING REMOVE OLD PATCH BEFORE Expr:05-23-25 APPLYING NEW ONE. ROTATE SITES. DO NOT SMOKE WHILE WEARING PATCH. 16) TRAZODONE HCL 100MG TAB Qty: 11 for 7 ACTIVE Issu:08-23-24 days Sig: TAKE ONE AND ONE-HALF Refills: 2 Last:08-23-24 TABLETS BY MOUTH AT BEDTIME Expr:08-24-25 17) TRIAMCINOLONE ACETONIDE 0.1% CREAM Qty: ACTIVE [...] use 7) Insomnia 8) Anxiety VITAL SIGNS: Pulse.................94 (08/22/2024 06:56) Temperature...........98.1 F [...] VALPROIC ACID...____ DIAGNOSIS BEING TREATED THIS VISIT: PTSD ANY COMPLAINTS/PROBLEMS....... PT with h/o PTSD, ADHD and Borderline PD. PT seen for c/o anxiety, poor sleep and increased irritability. She was on Prazosin 2 mg qhs and this was discontinued yesterday for c/o dizziness/light headedenss. She is currently taking Escitalopram 30 mg q day; Bupropion XL 150 mg q am, Trazodone 150 mg qhs; Melatonin 3 mg qhs; Hydroxyzine 25 mg TID PRN for anxiety and 50 mg qhs PRN for insomnia and Atomoxetine 40 mg q am for ADHD. Pt c/o poor sleep, waking up multiple times through out the night, either due to nightmares or due to staff rounding. She states little noises like opening doors wake her up. She c/o tiredness, irritability and feeling despondent that nothing is helping her. She relayed that prior to admission she coped these sxs by smoking MJ. She also quit tobacco smoking prior to admission. PT denied SI/HI on interview. Past Medication trials: Quetiapine Made me hallucinate, drowsy Other medication trials (per Dr Wong note) citalopram 40 mg po qday , strattera 40 mg po qday prior med: - meds since 4th grade. - lamictal, depakote, seroquel,wellbutrin prazosin, mirtazine, lexapro, concerta, risperdal MENTAL STATUS: MOOD/AFFECT............... ..anxious, stressed/tearful DELUSIONS/HALLUCINATIONS.. ..Absent SUICIDAL/AGGRESSIVE....... ..Absent ALERT & ORIENTED X3 WITH GOOD CONCENTRATION........Yes TREATMENT PLAN: - Discontinue Hydroyxzine and instead start Buspar 5 mg TID for anxiety. - Start on Olanzapine 5 mg qhs for mood/anxiety/sleep. - Continue Escitalopram 30 mg q am and Bupropion XL 150 mg q am for anxiety/depression. - Continue Trazodone 150 mg qhs for sleep; continue Melatonin 3 mg qhs PRN for sleep. - Continue Atomoxetine 40 mg q am for ADHD. Reviewed R/B/Se/alt of above medication changes with patient and informed consent obtained. /sanjeev/ Dominguez Shaikh MD MPH. Staff Physician, Psychiatry Signed: 08/26/2024 13:54 Receipt Acknowledged By: 08/26/2024 19:25 /sajneev/ IRIS GUTIERREZAUTO LOCATOR REGISTERED NURSE DOMINGUEZ SHAIKH [facility]
--- OUTSIDE RECORDS SUMMARY | 2025-02-23 10:58 | XMS_ITS | Encounter Summary ---
Author Name [facility] ([place]) Organization [facility] ([place]) Address [address] [place] [id number] Support Name Relationship Address Phone FUAD CHRISTINE [...] MEDIC AID Aug 02, 2015 MEDICAI D [id number] [phone] STACIE JENNIFER PATIENT [facility] (WNR) MEDICAID MEDIC AID [facility] (WNR) Dec 01, 2023 MEDICAI D [id number] STACIE JENNIFER PATIENT Selected Encounter This section includes the information on record at [place] for the Encounter. Date/Time Encounter Type Encounter Description Reason Provider Source Aug 21, 2024 11:09 AM Inpatient Visit RRTP INDIVIDUAL ICD-10-CM F41.9 Anxiety disorder, unspecified [facility] IHPegyg Encounter Template Text not used by [place] Assessments - Encounter Diagnoses This section includes the primary and secondary diagnoses documented for the Encounter. Date/Time Primary/Secondary Diagnosis Diagnosis Name Provider Source Aug 21, 2024 11:16 AM PRIMARY Anxiety disorder, unspecified [facility] Aug 21, 2024 11:16 AM SECONDARY Insomnia, unspecified [facility] Plan of Treatment: Future Appointments (+ 6 months) and Future Tests (+/- 45 days) The Plan of Treatment section includes future care activities for the [facility] This section includes future appointments and future orders which are active, pending or scheduled. Future Appointments This section includes appointments that were scheduled to occur 6 months from the date of the Encounter, up to a maximum of 20 appointments. The data comes from all [place] treatment facilities. Appointment Date/Time Appointment Type Appointme nt Facility Name Sep 10, 2024 12:30 PM AMBULATORY - PSYCHIATRY [facility] Sep 12, 2024 06:00 PM AMBULATORY - PSYCHIATRY [facility] Sep 17, 2024 06:00 PM AMBULATORY - PSYCHIATRY [facility] Sep 19, 2024 06:00 PM AMBULATORY - PSYCHIATRY [facility] Sep 26, 2024 06:00 PM AMBULATORY - PSYCHIATRY [facility] Oct 01, 2024 02:00 PM AMBULATORY - NONE [facility] Oct 09, 2024 03:00 PM AMBULATORY - MEDICINE [facility] Oct 16, 2024 01:00 PM AMBULATORY - PSYCHIATRY [facility] Oct 30, 2024 01:00 PM AMBULATORY - PSYCHIATRY [facility] Nov 27, 2024 01:00 PM AMBULATORY - PSYCHIATRY [facility] Dec 04, 2024 01:00 PM AMBULATORY - PSYCHIATRY [facility] Dec 11, 2024 01:00 PM AMBULATORY - PSYCHIATRY [facility] Dec 18, 2024 01:00 PM AMBULATORY - PSYCHIATRY [facility] Dec 25, 2024 01:00 PM AMBULATORY - PSYCHIATRY [facility] February 05, 2025 09:30 AM AMBULATORY - PSYCHIATRY [facility] Lab Results: +/- 30 days of the encounter This section includes the Chemistry and Hematology Lab Results on record with [place] for the patient. Radiology Reports and Pathology [...] its performance characteristics confirmed by the [facility] laboratory thru method comparison with reference laboratory and medication chart review. The laboratory is regulated under CLIA as qualified to perform high-complexity testing. Fentanyl is used for clinical purposes in conjunction with other laboratory tests. Ordering Provider: DANIEL GOMEZ Report Released Date/Time: Sep 02, 2024 08:27 PM Reporting Lab: [facility] [facility] [phone] Performing Lab: [facility] [phone] ETHANOL <10.0 mg/dL 0-9 AMPHET/METHAMPHETAMINE Negative ng/mL COCAINE METABOLITES Negative ng/mL BENZODIAZEPINES (STL) Negative ng/mL CANNABINOIDS POSITIVE ng/mL METHADONE Negative ng/mL OPIATES Negative ng/mL CREATININE URINE/OTHERS 110.1 mg/dL H 47.0 -110.0 OXYCODONE (LRDRA-VXE-CT) Negative ng/mL BUPRENORPHINE (STL-PB-MA) Negative ng/mL FENTANYL (STL-PB) Negative ng/mL Aug 25, 2024 02:03 PM [facility] URINE DRUG SCREEN (STL) URINE Specimen Type: URINE Comment: The cut-off value for Fentanyl was laboratory developed and its performance characteristics confirmed by the [facility] laboratory thru method comparison with reference laboratory and medication chart review. The laboratory is regulated under CLIA as qualified to perform high-complexity testing. Fentanyl is used for clinical purposes in conjunction with other laboratory tests. Ordering Provider: DANIEL GOMEZ Report Released Date/Time: Aug 24, 2024 07:24 PM Reporting Lab: [facility] [address] [facility] [phone] Performing Lab: [facility] [address] [facility] [address] ETHANOL Negative mg/dL 0-20 AMPHET/METHAMPHETAMINE Negative ng/mL COCAINE METABOLITES Negative ng/mL BENZODIAZEPINES (STL) Negative ng/mL CANNABINOIDS POSITIVE ng/mL METHADONE Negative ng/mL OPIATES Negative ng/mL CREATININE URINE/OTHERS 39.0 mg/dL L 47-11 0 OXYCODONE (ZIMBY-IFZ-MM) Negative ng/mL BUPRENORPHINE (STL-PB-MA) Negative ng/mL FENTANYL (STL-PB) Negative ng/mL Aug 20, 2024 07:13 AM [facility] URINALYSIS W/ CX REFLEX (STL-PB) URINE Specim en Type: URINE No comment entered. Ordering Provider: DANIEL GOMEZ Report Released Date/Time: Aug 19, 2024 11:04 AM Reporting Lab: [facility] [place] [address] Performing Lab: [facility] [place] [address] URINE COLOR Yellow Yellow U.BILIRUBIN Negative mg/dL [...] GRAVITY 1.028 Aug 19, 2024 10:08 AM [facility] URINALYSIS (STL-PB) URINE Specimen Type: URIN E No comment entered. Ordering Provider: DANIEL GOMEZ Report Released Date/Time: Aug 16, 2024 03:45 PM Reporting Lab: [facility] [place] [address] Performing Lab: [facility] [place] [address] URINE COLOR Yellow Yellow U.BILIRUBIN Negative mg/dL [...] Aug 16, 2024 03:45 PM Reporting Lab: [facility] [phone] Performing Lab: [facility] [facility] [phone] Qualitative Test NEG NEGAT URBAN Aug 19, 2024 10:08 AM [facility] URINE DRUG SCREEN (STL) URINE Specimen Type: URINE Comment: The cut-off value for Fentanyl was laboratory developed and its performance characteristics confirmed by the [facility] laboratory thru method comparison with reference laboratory and medication chart review. The laboratory is regulated under CLIA as qualified to perform high-complexity testing. Fentanyl is used for clinical purposes in conjunction with other laboratory tests. Ordering Provider: DANIEL GOMEZ Report Released Date/Time: Aug 16, 2024 03:45 PM Reporting Lab: [facility] [facility] [phone] Performing Lab: [facility] [facility] [phone] ETHANOL Negative mg/dL 0-20 AMPHET/METHAMPHETAMINE Negative ng/mL COCAINE METABOLITES Negative ng/mL BENZODIAZEPINES (STL) Negative ng/mL CANNABINOIDS POSITIVE ng/mL METHADONE Negative ng/mL OPIATES POSITIVE ng/mL CREATININE URINE/OTHERS 266.1 mg/dL H 47.0 -110.0 OXYCODONE (ASWLQ-TEI-AD) Negative ng/mL BUPRENORPHINE (STL-PB-MA) Negative ng/mL FENTANYL (STL-PB) Negative ng/mL Aug 19, 2024 10:00 AM [facility] CBC BLOOD Specimen Type: BLOOD No comment entered. Ordering Provider: DANIEL GOMEZ Report Released Date/Time: Aug 16, 2024 03:45 PM Reporting Lab: [facility] [phone] Performing Lab: [facility] [facility] [phone] WBC 12.7 10*3/uL H 3.6-11.2 RBC 4.19 [...] Aug 16, 2024 03:45 PM Reporting Lab: [facility] [phone] Performing Lab: [facility] [place] [phone] CREATININE 0.75 mg/dL 0.60-1.10 UREA NITROGEN 12.0 [...] 104.44 >60 Aug 19, 2024 09:59 AM [facility] PT/INR NEW (STL-MA) PLASMA Specimen Type: PLAS MA No comment entered. Ordering Provider: DANIEL GOMEZ Report Released Date/Time: Aug 16, 2024 03:45 PM Reporting Lab: [facility] [place] [address] Performing Lab: [facility] [place] [address] PROTIME 9.4 s 9.4-12.5 INR VALUE 0.8 {INR} Aug 19, 2024 09:59 AM [facility] ETHANOL SERUM/PLASMA (STL) PLASMA Specimen Typ e: PLASMA Comment: No hemolysis noted. Ordering Provider: DANIEL GOMEZ Report Released Date/Time: Aug 16, 2024 03:45 PM Reporting Lab: [facility] [place] [address] Performing Lab: [facility] [place] [address] ETHANOL SERUM/PLASMA (STL) <10.0 mg/dL 0 -10 Aug 19, 2024 09:59 AM [facility] GGT GAMMA-GT PLASMA Specimen Type: PLASM A No comment entered. Ordering Provider: DANIEL GOMEZ Report Released Date/Time: Aug 16, 2024 03:45 PM Reporting Lab: [facility] [address] [facility] [phone] Performing Lab: [facility] [address] [place] [address] GGT GAMMA-GT 14 [IU]/L 12-64 Aug 19, 2024 09:59 AM [facility] MAGNESIUM PLASMA Specimen Type: PLASM A Comment: No hemolysis noted. Ordering Provider: DANIEL GOMEZ Report Released Date/Time: Aug 16, 2024 03:45 PM Reporting Lab: [facility] [facility] [phone] Performing Lab: [facility] [facility] [phone] MAGNESIUM 2.1 mg/dL 1.6-2.6 Aug 19, 2024 09:59 AM [facility] CPK SERUM Specimen Type: SERUM No comment entered. Ordering Provider: DANIEL GOMEZ Report Released Date/Time: Aug 16, 2024 03:45 PM Reporting Lab: [facility] [phone] Performing Lab: [facility] [facility] [phone] CPK 37 U/L 29-168 Aug 19, 2024 09:59 AM [facility] HEP C Ab HCV Ab (STL) SERUM Specimen Type: SE RUM No comment entered. Ordering Provider: DANIEL GOMEZ Report Released Date/Time: Aug 16, 2024 03:45 PM Reporting Lab: [facility] [address] [place] [address] Performing Lab: [address] [phone] HEP C Ab HCV Ab (STL) Nonreactive Nonrea ctive Aug 19, 2024 09:59 AM [facility] HIV COMBO FOURTH GENERATION (STL) SERUM Speci men Type: SERUM No comment entered. Ordering Provider: DANIEL GOMEZ Report Released Date/Time: Aug 16, 2024 03:45 PM Reporting Lab: [facility] [address] [facility] [facility] [phone] Performing Lab: [facility] [address] [facility] [address] HIV COMBO FOURTH GENERATION (STL) Nonreactive Nonreactive Vital Signs: All taken on the encounter date This section contains inpatient and outpatient Vital Signs collected on the date of the Encounter. Date/Time Temperature Pulse Blood Pressure Respiratory Rate SP02 Pain Height Weight Body Mass Index Source Aug 21, 2024 06:52 AM 98.3 96 138/83 18 97 0 [facility] Social History: Smoking Status (Most current) and Tobacco Use (All prior to encounter date) This section includes the most current, and the historical, smoking and tobacco- related health factors from the [place] facility where the Encounter took place. Current Smoking Status This section includes the most current smoking, or tobacco-related health factor, from the [place] facility where the Encounter took place. Date/Time Current Smoking Status Comment Nan ity Aug 19, 2024 10:33 AM VA-TOBACCO USE ALFONZO RY DAY CIGARETTES [facility] Tobacco Use History This section includes a history of the smoking, or tobacco-related health factors, that were collected on or before the date of the Encounter. The data comes from the [place] facility where the Encounter took place. 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 Date/Time Encounter Note(s) Provider Source Aug 21, 2024 11:09 AM PSYCHIATRY NOTE: LOCAL TITLE: PSYCHIATRY [facility] STANDARD TITLE: PSYCHIATRY NOTE DATE OF NOTE: AUG 21, 2024@11:09 ENTRY DATE: AUG 21, 2024@11:09:47 AUTHOR: [facility] COSIGNER: URGENCY: STATUS: COMPLETED SL - [facility] - MEDICATION MANAGEMENT Name..................EMILIANO BUTLER,JENNIFER FARRELL Age...................39 Sex...................FEMA BERNIE SSN...................[id number] Today's Date..........AUG 21, 2024 Service Connection....Service Connected: No ALLERGIES: BACTRIM, [...] Opioid dependence 6) Tobacco use VITAL SIGNS: Pulse.................96 (08/21/2024 06:52) Temperature...........98.3 F [36.8 C] (08/21/2024 06:52) Blood Pressure........138/83 (08/21/2024 06:52) Pain..................0 (08/21/2024 06:52) Weight................ No patient weight history to display. [...] VALPROIC ACID...____ DIAGNOSIS BEING TREATED THIS VISIT: anxiety, unspecied; insomnia, unspecified. ANY COMPLAINTS/PROBLEMS....... Yes Patient having concerns of increased anxiety that she rates at 8/10. Patient also states she has been getting to sleep well but can't get into deep sleep. Patient reports she is not having any nightmares though (started on prazosin therapy two days ago on admission). Patient states she gets woke up by night checks and it is hard to get back to sleep. ANY MEDICATION SIDE EFFECT....No APPETITE.................. ....Good SLEEP..................... ....Poor Mental Status Exam: Alert, oriented, NAD, appropriately groomed Concentration/attention: attends to interview Motor: steady gait - no tics/tremors Speech: nml rate, prosody Thought Process: linear, goal directed Thought Content: denies SI/HI/psychosis Mood: euthymic Affect: congruent with mood, appropriate for situation Judgment & Insight: fair Intellectual Ability: appears average TREATMENT PLAN: - Will start: - Hydroxyzine 25mg TID PRN for anxiety, patient restarted on Bupropion XL on admission. - Trazodone 50mg at bedtime PRN for insomnia (sleep maintenance). The was educated on his differential diagnoses and treatment options available. The [place] was educated on his medications, discussed the appropriate doses, the benefits and adverse events that could occur with taking these medications. /sanjeev/ [facility] Registered Nurse - Mental Health Signed: 08/21/2024 11:16 Receipt Acknowledged By: 08/21/2024 11:45 /sanjeev/ STEPHANIE STANLEY Registered NurseTHANH 51E 08/21/2024 12:40 /sanjeev/ IRIS GUTIERREZCHEESEMAKER REGISTERED NURSE [facility]
--- OUTSIDE RECORDS SUMMARY | 2025-02-23 10:58 | XMS_ITS | Clinical Summary ---
Author Organization [facility] Address [address] [facility], [address] [address] Phone Care Team Providers Care Booth Cleaner Name Role Phone Liz Crandall Primary Care Provider [phone] Allergies Active Allergy Reactions Criticality Noted Date Comments Sulfamethoxazole-Trimethopr im Rash,Unknown 03/31/2016 Metronidazole Rash 07/06/2018 Other Rash 06/27/2018 Med for fungal infection, unsure name Medications citalopram (CELEXA) 40 MG Tablet Take 40 mg by mouth daily. 6 Active Meloxicam 15 MG Tablet Take 15 mg by mouth daily. 6 Active traMADol-acetam inophen (ULTRACET) 37.5-325 MG Tablet Take 1 Tab by mouth every 6 hours as needed. 6 Active loperamide (IMODIUM) 2 MG Capsule Take 1 Cap by mouth as needed for Diarrhea. 30 Cap 8 Active Additional Information Patient not taking.Reported on 06/27/2018 gabapentin (NEURONTIN) 100 MG Capsule Take 100 mg by mouth 3 times daily. Active dicyclomine (BENTYL) 10 MG Capsule TAKE ONE CAPSULE BY MOUTH THREE TIMES DAILY 90 Cap 9 Active Active Problems Problem Noted Date Diagnosed Date Major depressive disorder, recurrent episode, mi ld 02/13/2018 Family History Medical History Relation Name Comments Crohn's Disease Brother No Known Problems Father Cancer Maternal Aunt brain Cancer Maternal Grandfather lung Cancer Maternal Grandmother unsure Cancer Mother breast, skin Emphysema Mother Hypertension Mother Skin Cancer Mother Cancer Paternal Grandmother stomach Relation Name Status Comments Brother Father Alive Maternal Aunt Maternal Grandfather Maternal Grandmother Mother Alive Paternal Grandmother Social History Tobacco Use Types Packs/Day Years Used Date Smoking Tobacco: Former Cigarettes 1 16.8 0 06/03/2000 - 03/12/2017 Smokeless Tobacco: Never Tobacco Cessation:Ready to Q uit: No; Counseling Given: Yes Alcohol Use Standard Drinks/Week Comments No 0 (1 standard drink = 0.6 oz pur e alcohol) Sexually Active Control Partners Comments Yes Male Comments No Sex and Gender Information Value Date Recorded Sex Assigned at Not on file Legal Sex Female 10:19 PM CDT Gender Identity Not on file Sexual Orientation Not on file Occupation Industry Job Start Date Job End Date 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 [employer] Not on file Not on file Not on file Last Filed Vital Signs Vital Sign Reading Time Taken Comments Blood Pressure 99/62 02/11/2019 2:00 PM CDT Pulse 56 02/11/2019 2:30 PM CDT Temperature 36.6 C (97.8 F) 02/11/2019 12:23 PM CDT Respiratory Rate 18 02/11/2019 2:38 PM CDT Oxygen Saturation 96% 02/11/2019 2:30 PM CDT Inhaled Oxygen Concentration - - Weight 87.1 kg (192 lb) 02/11/2019 12:24 PM CDT Height 167.6 cm (5' 6) 02/11/2019 12:24 PM CDT Body Mass Index 30.99 02/11/2019 12:24 PM CDT Plan of Treatment Health Maintenance Due Date Last Done Comments Hepatitis C Virus (HCV) Screening 1986 TdaP Immunization 1986 Hepatitis B Immunization (1 of 3 - 19+ 3-dose series) 2005 Influenza Immunization (#1) 2024 SARS-COV-2 Immunization ( - 2023-25 season) 2024 Respiratory Syncytial Virus (RSV) Immunization (Adult) (1 - 1-dose 75+ series) 2061 Meningococcal Immunization (ACWY) Aged Out No longer eligible based on patient's age to complete this topic Pneumococcal Immunization Combined Aged Out No longer eligible based on patient's age to complete this topic Rotavirus Immunization Aged Out No lo nger eligible based on patient's age to complete this topic Insurance MEDICAID [place] Care Teams Booth Cleaner Relationship Specialty Start Date End Date Liz Crandall PA [address] [address] PCP - General Adult Medicine 06/12/18
--- OUTSIDE RECORDS SUMMARY | 2025-02-23 10:58 | XMS_ITS | Encounter Summary ---
Author Name [facility] [place] [facility] [place] Address [address] [place] [id number] Support Name Relationship Address Phone FUAD CHRISTINE [...] MEDIC AID Aug 02, 2015 MEDICAI D [id number] [phone] STACIE AYEJENNIFER PATIENT [facility] ([place]NR) MEDICAID MEDIC AID [facility] ([place]NR) Dec 01, 2023 MEDICAI D [id number] STACIE AYEJENNIFER PATIENT Selected Encounter This section includes the information on record at [place] for the Encounter. Date/Time Encounter Type Encounter Description Reason Provider Source Sep 03, 2024 03:00 PM ALCOHOL AND/OR DRUG SERVICES RRTP INDIVIDUAL ICD-10-CM F12.20 Cannabis dependence, uncomplicated SUGEY ROSAS IHE Encounter Template Text not used by [place] Assessments - Encounter Diagnoses This section includes the primary and secondary diagnoses documented for the Encounter. Date/Time Primary/Secondary Diagnosis Diagnosis Name Provider Source Sep 03, 2024 04:51 PM PRIMARY Cannabis dependence, uncomplicated TOMI ROSAS [facility] Sep 03, 2024 04:51 PM SECONDARY Alcohol use, unspecified, uncomplicated TOMI ROSAS [facility] Sep 03, 2024 04:51 PM SECONDARY Cocaine use, unspecified, uncomplicated TOMI ROSAS [facility] Sep 03, 2024 04:51 PM SECONDARY Opioid use, unspecified, uncomplicated TOMI ROSAS [facility] Plan of Treatment: Future Appointments (+ 6 months) and Future Tests (+/- 45 days) The Plan of Treatment section includes future care activities for the patient from all [place] [facility] This section includes future appointments and future orders which are active, pending or scheduled. Future Appointments This section includes appointments that were scheduled to occur 6 months from the date of the Encounter, up to a maximum of 20 appointments. The data comes from all [facility] facilities. Appointment Date/Time Appointment Type Appointme nt Facility Name Sep 10, 2024 12:30 PM AMBULATORY - PSYCHIATRY [facility] Sep 12, 2024 06:00 PM AMBULATORY - PSYCHIATRY [facility] Sep 17, 2024 06:00 PM AMBULATORY - PSYCHIATRY [facility] Sep 19, 2024 06:00 PM AMBULATORY - PSYCHIATRY [facility] Sep 26, 2024 06:00 PM AMBULATORY - PSYCHIATRY [facility] Oct 01, 2024 02:00 PM AMBULATORY - NONE [facility] Oct 09, 2024 03:00 PM AMBULATORY - MEDICINE [facility] Oct 16, 2024 01:00 PM AMBULATORY - PSYCHIATRY [facility] Oct 30, 2024 01:00 PM AMBULATORY - PSYCHIATRY [facility] Nov 27, 2024 01:00 PM AMBULATORY - PSYCHIATRY [facility] Dec 04, 2024 01:00 PM AMBULATORY - PSYCHIATRY [facility] Dec 11, 2024 01:00 PM AMBULATORY - PSYCHIATRY [facility] Dec 18, 2024 01:00 PM AMBULATORY - PSYCHIATRY [facility] Dec 25, 2024 01:00 PM AMBULATORY - PSYCHIATRY [facility] February 05, 2025 09:30 AM AMBULATORY - PSYCHIATRY [facility] Lab Results: +/- 30 days of the encounter This section includes the Chemistry and Hematology Lab Results on record with [place] for the patient. Radiology Reports and Pathology Reports are provided separately, in subsequent sections. Lab Results This section contains the Chemistry/Hematology Results that were resulted 30 days before or 30 daysafter the date of the Encounter. Date/Time Source Result Type Result - Unit Interpretation Reference Range Specimen Type Comment Sep 03, 2024 12:00 PM [facility] URINE DRUG SCREEN (STL) URINE Specimen Type: URINE Comment: The cut-off value for Fentanyl was laboratory developed and its performance characteristics confirmed by the [facility] laboratory thru method comparison with reference laboratory and medication chart review. The laboratory is regulated under CLIA as qualified to perform high-complexity testing. Fentanyl is used for clinical purposes in conjunction with other laboratory tests. Ordering Provider: DANIEL GOMEZ Report Released Date/Time: Sep 02, 2024 08:27 PM Reporting Lab: [facility] [address] Performing Lab: [facility] [address] ETHANOL <10.0 mg/dL 0-9 AMPHET/METHAMPHETAMINE Negative ng/mL COCAINE METABOLITES Negative ng/mL BENZODIAZEPINES (STL) Negative ng/mL CANNABINOIDS POSITIVE ng/mL METHADONE Negative ng/mL OPIATES Negative ng/mL CREATININE URINE/OTHERS 110.1 mg/dL H 47.0 -110.0 OXYCODONE ([id number]) Negative ng/mL BUPRENORPHINE (STL-PB-MA) Negative ng/mL FENTANYL (STL-PB) Negative ng/mL Aug 25, 2024 02:03 PM [facility] URINE DRUG SCREEN (STL) URINE Specimen Type: URINE Comment: The cut-off value for Fentanyl was laboratory developed and its performance characteristics confirmed by the [facility] laboratory thru method comparison with reference laboratory and medication chart review. The laboratory is regulated under CLIA as qualified to perform high-complexity testing. Fentanyl is used for clinical purposes in conjunction with other laboratory tests. Ordering Provider: DANIEL GOMEZ Report Released Date/Time: Aug 24, 2024 07:24 PM Reporting Lab: [facility] [address] [place] [id number] Performing Lab: [facility] [address] [facility] [address] ETHANOL Negative mg/dL 0-20 AMPHET/METHAMPHETAMINE Negative ng/mL COCAINE METABOLITES Negative ng/mL BENZODIAZEPINES (STL) Negative ng/mL CANNABINOIDS POSITIVE ng/mL METHADONE Negative ng/mL OPIATES Negative ng/mL CREATININE URINE/OTHERS 39.0 mg/dL L 47-11 0 OXYCODONE ([id number]) Negative ng/mL BUPRENORPHINE (STL-PB-MA) Negative ng/mL FENTANYL (STL-PB) Negative ng/mL Aug 20, 2024 07:13 AM [facility] URINALYSIS W/ CX REFLEX (STL-PB) URINE Specim en Type: URINE No comment entered. Ordering Provider: DANIEL GOMEZ Report Released Date/Time: Aug 19, 2024 11:04 AM Reporting Lab: [facility] [address] Performing Lab: [facility] [address] URINE COLOR Yellow Yellow U.BILIRUBIN Negative mg/dL [...] GRAVITY 1.028 Aug 19, 2024 10:08 AM [facility] URINALYSIS (STL-PB) URINE Specimen Type: URIN E No comment entered. Ordering Provider: DANIEL GOMEZ Report Released Date/Time: Aug 16, 2024 03:45 PM Reporting Lab: [facility] [address] Performing Lab: [facility] [place] [address] URINE COLOR Yellow Yellow U.BILIRUBIN Negative mg/dL [...] 1.035 H Aug 19, 2024 10:08 AM [facility] TEST URINE (MA-STL) URINE Specimen Type: URINE No comment entered. Ordering Provider: DANIEL GOMEZ Report Released Date/Time: Aug 16, 2024 03:45 PM Reporting Lab: [facility] [place] [address] Performing Lab: [facility] [place] [address] Qualitative Test NEG NEGAT URBAN Aug 19, 2024 10:08 AM [facility] URINE DRUG SCREEN (STL) URINE Specimen Type: URINE Comment: The cut-off value for Fentanyl was laboratory developed and its performance characteristics confirmed by the [facility] laboratory thru method comparison with reference laboratory and medication chart review. The laboratory is regulated under CLIA as qualified to perform high-complexity testing. Fentanyl is used for clinical purposes in conjunction with other laboratory tests. Ordering Provider: DANIEL GOMEZ Report Released Date/Time: Aug 16, 2024 03:45 PM Reporting Lab: [facility] [place] [address] Performing Lab: [facility] [place] [address] ETHANOL Negative mg/dL 0-20 AMPHET/METHAMPHETAMINE Negative ng/mL COCAINE METABOLITES Negative ng/mL BENZODIAZEPINES (STL) Negative ng/mL CANNABINOIDS POSITIVE ng/mL METHADONE Negative ng/mL OPIATES POSITIVE ng/mL CREATININE URINE/OTHERS 266.1 mg/dL H 47.0 -110.0 OXYCODONE ([id number]) Negative ng/mL BUPRENORPHINE (STL-PB-MA) Negative ng/mL FENTANYL (STL-PB) Negative ng/mL Aug 19, 2024 10:00 AM [facility] CBC BLOOD Specimen Type: BLOOD No comment entered. Ordering Provider: DANIEL GOMEZ Report Released Date/Time: Aug 16, 2024 03:45 PM Reporting Lab: [facility] [address] Performing Lab: [facility] [address] WBC 12.7 10*3/uL H 3.6-11.2 RBC 4.19 [...] 20 Aug 19, 2024 09:59 AM [facility] COMPREHENSIVE METABOLIC PANEL PLASMA Specimen Type: PLASMA Comment: No hemolysis noted. Ordering Provider: DANIEL GOMEZ Report Released Date/Time: Aug 16, 2024 03:45 PM Reporting Lab: [facility] [place] [address] Performing Lab: [facility] [place] [address] CREATININE 0.75 mg/dL 0.60-1.10 UREA NITROGEN 12.0 [...] >60 Aug 19, 2024 09:59 AM [facility] PT/INR NEW (STL-MA) PLASMA Specimen Type: PLAS MA No comment entered. Ordering Provider: DANIEL GOMEZ Report Released Date/Time: Aug 16, 2024 03:45 PM Reporting Lab: [facility] [place] [address] Performing Lab: [facility] [place] [address] PROTIME 9.4 s 9.4-12.5 INR VALUE 0.8 {INR} Aug 19, 2024 09:59 AM [facility] ETHANOL SERUM/PLASMA (STL) PLASMA Specimen Typ e: PLASMA Comment: No hemolysis noted. Ordering Provider: DANIEL GOMEZ Report Released Date/Time: Aug 16, 2024 03:45 PM Reporting Lab: [facility] [place] [address] Performing Lab: [facility] [address] ETHANOL SERUM/PLASMA (STL) <10.0 mg/dL 0 -10 Aug 19, 2024 09:59 AM [facility] GGT GAMMA-GT PLASMA Specimen Type: PLASM A No comment entered. Ordering Provider: DANIEL GOMEZ Report Released Date/Time: Aug 16, 2024 03:45 PM Reporting Lab: [facility] [address] [facility] [address] Performing Lab: [facility] [address] [facility] [address] GGT GAMMA-GT 14 [IU]/L 12-64 Aug 19, 2024 09:59 AM [facility] MAGNESIUM PLASMA Specimen Type: PLASM A Comment: No hemolysis noted. Ordering Provider: DANIEL GOMEZ Report Released Date/Time: Aug 16, 2024 03:45 PM Reporting Lab: [facility] [address] Performing Lab: [facility] [address] MAGNESIUM 2.1 mg/dL 1.6-2.6 Aug 19, 2024 09:59 AM [facility] CPK SERUM Specimen Type: SERUM No comment entered. Ordering Provider: DANIEL GOMEZ Report Released Date/Time: Aug 16, 2024 03:45 PM Reporting Lab: [facility] [address] Performing Lab: [facility] [address] CPK 37 U/L 29-168 Aug 19, 2024 09:59 AM [facility] HEP C Ab HCV Ab (STL) SERUM Specimen Type: SE RUM No comment entered. Ordering Provider: DANIEL GOMEZ Report Released Date/Time: Aug 16, 2024 03:45 PM Reporting Lab: [facility] [address] [facility] [address] Performing Lab: [facility] [address] [facility] [address] HEP C Ab HCV Ab (STL) Nonreactive Nonrea ctive Aug 19, 2024 09:59 AM [facility] HIV COMBO FOURTH GENERATION (STL) SERUM Speci men Type: SERUM No comment entered. Ordering Provider: DANIEL GOMEZ Report Released Date/Time: Aug 16, 2024 03:45 PM Reporting Lab: [facility] [address] [facility] [address] Performing Lab: [facility] [address] [facility] [address] HIV COMBO FOURTH GENERATION (STL) Nonreactive Nonreactive Social History: Smoking Status (Most current) and Tobacco Use (All prior to encounter date) This section includes the most current, and the historical, smoking and tobacco- related health factors from the [place] facility where the Encounter took place. Current Smoking Status This section includes the most current smoking, or tobacco-related health factor, from the [place] facility where the Encounter took place. Date/Time Current Smoking Status Comment Nan ity Aug 19, 2024 10:33 AM VA-TOBACCO USE ALFONZO RY DAY CIGARETTES [facility] Tobacco Use History This section includes a history of the smoking, or tobacco-related health factors, that were collected on or before the date of the Encounter. The data comes from the [place] facility where the Encounter took place. 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 Date/Time Encounter Note(s) Provider Source Sep 03, 2024 04:14 PM SUICIDE PREVENTION NOTE: LOCAL TITLE: SUICIDE PREVENTION SAFETY PLAN STANDARD TITLE: SUICIDE PREVENTION NOTE DATE OF NOTE: SEP 03, 2024@16:14 ENTRY DATE: SEP 03, 2024@16:15:46 AUTHOR: TOMI ROSAS COSIGNER: URGENCY: STATUS: COMPLETED SAFETY PLAN Please follow the steps described below on your Safety Plan. If you are experiencing a medical or mental health emergency, please call 911, at any time. If you are unable to reach your safety contacts or you are in crisis, please call the Veterans Crisis Line (Dial 987 then Press 1). Step 1: Triggers, Risk Factors and Warning Signs How will you know when you are in crisis and that the Safety Plan should be used? What are your personal red flags? 1. Feeling antsy 2. Self sabotage- Example-Having money in my pocket 3. Feeling overwhelmed 4. Sleeping all the time and not getting up 5. Step 2: Internal Coping Strategies What can you do, on your own, to help you stay safe and not act on your suicidal thoughts or urges in the future? What have you done in the past to stay safe? 1. Journal 2. Take a Shower 3. Meditate 4. 5. Step 3: Social Contacts Who May Distract from the Crisis Other than mental health providers and counselors, who can you contact who helps take your mind off your problems or helps you feel better? Name: Mary-Best Friend Phone number: Name: Mother Phone number: Name: Sister Phone number: What public places, groups, or social events help you feel better? Examples of social settings include community events, beaches, ball, coffee shops, malls, churches, clubs, 12 step meetings, aftercare groups, support groups, Veterans organizations, [facility] social events. 1. Avoid men 2. Avoid certain family members 3. Avoid Alcohol 4. 5. 6. Step 4: Family Members or Friends Who May Offer Help Who are friends or family members who should be included in your plan? Name: Mother Phone number: Name: Sister Phone number: Name: Marjoriebest friend Phone number: Step 5: Professionals and Agencies to Contact for Help Who are the mental health professionals or professional peer supports who should be included in your plan? Please list the numbers you would call in the order you would call them. Name: [place] hot line Phone number: Deanne has contact info Name: [facility] Phone number: Veterans Crisis Line: Dial 255 then Press 1 [facility] Crisis Line Text Messaging Service: 031064 Veterans Crisis Line: [email or web address]://www.veteranscrisis line.net/chat Call 911 in an emergency If you need to go to an urgent care center or emergency room, where will you go? Facility name: Facility address: Facility phone number: Local [place] site-specific emergency numbers: Step 6: Making the Environment Safe Ways to make my environment safer and barriers I will use to protect myself from these potentially lethal means: 1. Remain structured 2. Stay away from people and places that trigger me like [employer]. 3. Stay connected to healthy support systems has access to firearms in their home or elsewhere: No has access to opioids: Yes Opioid safety and overdose education provided. Education provided to: Patient The following resources were shared: YouTube video Introduction to Naloxone for People with Opioid Use Disorders YouTube video Introduction to Naloxone for People taking prescribed Opioids Naloxone The patient has current naloxone. Comment: Erin states she has Naloxone at home. Mother takes Vicodin. These are the people who will help me protect myself from having access to dangerous items: Name: Mary-Best Friend Phone: Erin declines to share current physical address. Erin's current phone number: [phone] Other Resources: - Virtual Hope Box smartphone application (create a hope box to remember good things in one's life) - SpeakUptheconnection.net (source of Erin-related resources and information) - Safety Plan in PTSD Rough Planer Tender: www.ptsd.[place].gov/appvid/mob ile/ptsdcoach_app.asp - Safety Plan in PTSD Rough Planer Tender Video: https://www.you[employer].com/wa tch?v=HRo2prgyX4L I have received a copy of this Safety Plan. Family member/caregiver/friend was not given copy of this Safety Plan. Reason: Erin currently inpatient and will not discharge until 09 September 2024. ALICIA Louis assessed following suicide prevention plan. Family member/caregiver/friend did not participate in this safety planning session. Reason: No family member available Nurse Practitioner Nash Louis assessed following suicide prevention plan. /es/ TOMI ROSAS Addiction Therapist, LEVI [address] [place] [address] / THANH Signed: 09/03/2024 16:52 Receipt Acknowledged By: 09/05/2024 12:00 /es/ Jenelle Davis Certified Hearing Instrument Dispenser, LEVI [facility] Program 09/04/2024 08:57 /es/ Vitaliy Youssef, Ph.D. Psychologist, Account Engineer [facility] 09/03/2024 17:15 /es/ NASH [facility] Advanced Practice Registered Nurse - Mental Health TOMI ROSAS [facility]
--- OUTSIDE RECORDS SUMMARY | 2025-02-23 10:58 | XMS_ITS | Encounter Summary ---
Author Name [facility] ([place] Organization [facility] Address [address] [place] [id number] Support Name Relationship Address Phone FUAD CHRISTINE Next of Kin Unknown CHRISTINE MERIDA Emergency Contact Unknown [phone] Insurance Providers: All historical and current Section [...] MEDIC AID Aug 02, 2015 MEDICAI D [id number] [id number] STACIE JENNIFER PATIENT FORMERLY [facility] (WNR) MEDICAID MEDIC AID [facility] (WNR) Dec 01, 2023 MEDICAI D [id number] STACIE AYEJENNIFER PATIENT Selected Encounter This section includes the information on record at [place] for the Encounter. Date/Time Encounter Type Encounter Description Reason Provider Source Sep 06, 2024 10:15 AM AL[facility] AND/OR [facility]UG [facility] ICD-10-CM F12.20 Cannabis dependence, uncomplicated SUGEY ROSAS Peggy Encounter Template Text not used by [place] Assessments - Encounter Diagnoses This section includes the primary and secondary diagnoses documented for the Encounter. Date/Time Primary/Secondary Diagnosis Diagnosis Name Provider Source Sep 06, 2024 11:28 AM PRIMARY Cannabis dependence, uncomplicated TOMI ROSAS [facility] Sep 06, 2024 11:28 AM SECONDARY Cocaine use, unspecified, uncomplicated TOMI ROSAS [facility] Sep 06, 2024 11:28 AM SECONDARY Opioid use, unspecified, uncomplicated TOMI ROSAS [facility] Plan of Treatment: Future Appointments (+ 6 months) and Future Tests (+/- 45 days) The Plan of Treatment section includes future care activities for the patient from all [place] treatmentfacilities. This section includes future appointments and [...] 10, 2024 12:30 PM AMBULATORY - PSYCHIATRY [facility] Sep 12, 2024 06:00 PM AMBULATORY - PSYCHIATRY [facility] Sep 17, 2024 06:00 PM AMBULATORY - PSYCHIATRY [facility] Sep 19, 2024 06:00 PM AMBULATORY - PSYCHIATRY [facility] Sep 26, 2024 06:00 PM AMBULATORY - PSYCHIATRY [facility] Oct 01, 2024 02:00 PM AMBULATORY - NONE [facility] Oct 09, 2024 03:00 PM AMBULATORY - MEDICINE [facility] Oct 16, 2024 01:00 PM AMBULATORY - PSYCHIATRY [facility] Oct 30, 2024 01:00 PM AMBULATORY - PSYCHIATRY [facility] Nov 27, 2024 01:00 PM AMBULATORY - PSYCHIATRY [facility] Dec 04, 2024 01:00 PM AMBULATORY - PSYCHIATRY [facility] Dec 11, 2024 01:00 PM AMBULATORY - PSYCHIATRY [facility] Dec 18, 2024 01:00 PM AMBULATORY - PSYCHIATRY [facility] Dec 25, 2024 01:00 PM AMBULATORY - PSYCHIATRY [facility] February 05, 2025 09:30 AM AMBULATORY - PSYCHIATRY [facility] Lab Results: +/- 30 days [...] Type Comment Sep 03, 2024 12:00 PM [facility] URINE DRUG SCREEN (STL) URINE Specimen Type: URINE Comment: The cut-off value for Fentanyl was laboratory developed and its performance characteristics confirmed by the [facility] laboratory thru method comparison with reference laboratory and medication chart review. The laboratory is regulated under CLIA as qualified to perform high-complexity testing. Fentanyl is used for clinical purposes in conjunction with other laboratory tests. Ordering Provider: DANIEL GOMEZ Report Released Date/Time: Sep 02, 2024 08:27 PM Reporting Lab: [facility] [address] [facility] [phone] Performing Lab: [facility] [phone] ETHANOL <10.0 mg/dL 0-9 AMPHET/METHAMPHETAMINE Negative ng/mL COCAINE METABOLITES Negative ng/mL BENZODIAZEPINES (STL) Negative ng/mL CANNABINOIDS POSITIVE ng/mL METHADONE Negative ng/mL OPIATES Negative ng/mL CREATININE URINE/OTHERS 110.1 mg/dL H 47.0 -110.0 OXYCODONE (OZIKL-IMQ-VP) Negative ng/mL BUPRENORPHINE (STL-PB-MA) Negative ng/mL FENTANYL (STL-PB) Negative ng/mL Aug 25, 2024 02:03 PM [facility] URINE DRUG SCREEN (STL) URINE Specimen Type: URINE Comment: The cut-off value for Fentanyl was laboratory developed and its performance characteristics confirmed by the [facility] laboratory thru method comparison with reference laboratory and medication chart review. The laboratory is regulated under CLIA as qualified to perform high-complexity testing. Fentanyl is used for clinical purposes in conjunction with other laboratory tests. Ordering Provider: DANIEL GOMEZ Report Released Date/Time: Aug 24, 2024 07:24 PM Reporting Lab: [facility] [address] [facility] [address] Performing Lab: [facility] [address] [facility] [phone] ETHANOL Negative mg/dL 0-20 AMPHET/METHAMPHETAMINE Negative ng/mL COCAINE METABOLITES Negative ng/mL BENZODIAZEPINES (STL) Negative ng/mL CANNABINOIDS POSITIVE ng/mL METHADONE Negative ng/mL OPIATES Negative ng/mL CREATININE URINE/OTHERS 39.0 mg/dL L 47-11 0 OXYCODONE (HQACN-GPI-JM) Negative ng/mL BUPRENORPHINE (STL-PB-MA) Negative ng/mL FENTANYL (STL-PB) Negative ng/mL Aug 20, 2024 07:13 AM [facility] URINALYSIS W/ CX REFLEX (STL-PB) URINE Specim en Type: URINE No comment entered. Ordering Provider: DANIEL GOMEZ Report Released Date/Time: Aug 19, 2024 11:04 AM Reporting Lab: [facility] [address] [place] [address] Performing Lab: [facility] [address] [place] [address] URINE COLOR Yellow Yellow U.BILIRUBIN Negative mg/dL [...] 19, 2024 10:08 AM [facility] URINALYSIS (STL-PB) URINE Specimen Type: URIN E No comment entered. Ordering Provider: DANIEL GOMEZ Report Released Date/Time: Aug 16, 2024 03:45 PM Reporting Lab: [facility] [address] [place] [address] Performing Lab: [facility] [address] [place] [address] URINE COLOR Yellow Yellow U.BILIRUBIN Negative mg/dL [...] 1.035 H Aug 19, 2024 10:08 AM [facility] TEST URINE (MA-STL) URINE Specimen Type: URINE No comment entered. Ordering Provider: DANIEL GOMEZ Report Released Date/Time: Aug 16, 2024 03:45 PM Reporting Lab: [facility] [address] [facility] [phone] Performing Lab: [facility] [address] [facility] [phone] Qualitative Test NEG NEGAT URBAN Aug 19, 2024 10:08 AM [facility] URINE DRUG SCREEN (STL) URINE Specimen Type: URINE Comment: The cut-off value for Fentanyl was laboratory developed and its performance characteristics confirmed by the [facility] laboratory thru method comparison with reference laboratory and medication chart review. The laboratory is regulated under CLIA as qualified to perform high-complexity testing. Fentanyl is used for clinical purposes in conjunction with other laboratory tests. Ordering Provider: DANIEL GOMEZ Report Released Date/Time: Aug 16, 2024 03:45 PM Reporting Lab: [facility] [address] [facility] [phone] Performing Lab: [facility] [address] [facility] [phone] ETHANOL Negative mg/dL 0-20 AMPHET/METHAMPHETAMINE Negative ng/mL COCAINE METABOLITES Negative ng/mL BENZODIAZEPINES (STL) Negative ng/mL CANNABINOIDS POSITIVE ng/mL METHADONE Negative ng/mL OPIATES POSITIVE ng/mL CREATININE URINE/OTHERS 266.1 mg/dL H 47.0 -110.0 OXYCODONE (FHEOS-BUU-TE) Negative ng/mL BUPRENORPHINE (STL-PB-MA) Negative ng/mL FENTANYL (STL-PB) Negative ng/mL Aug 19, 2024 10:00 AM [facility] CBC BLOOD Specimen Type: BLOOD No comment entered. Ordering Provider: DANIEL GOMEZ Report Released Date/Time: Aug 16, 2024 03:45 PM Reporting Lab: [facility] [address] [facility] [phone] Performing Lab: [facility] [address] [facility] [phone] WBC 12.7 10*3/uL H 3.6-11.2 RBC 4.19 [...] 0.00-0. 20 Aug 19, 2024 09:59 AM [facility] COMPREHENSIVE METABOLIC PANEL PLASMA Specimen Type: PLASMA Comment: No hemolysis noted. Ordering Provider: DANIEL GOMEZ Report Released Date/Time: Aug 16, 2024 03:45 PM Reporting Lab: [facility] [address] [place] [phone] Performing Lab: [facility] [address] [place] [phone] CREATININE 0.75 mg/dL 0.60-1.10 UREA NITROGEN 12.0 [...] Aug 19, 2024 09:59 AM [facility] PT/INR NEW (STL-MA) PLASMA Specimen Type: PLAS MA No comment entered. Ordering Provider: DANIEL GOMEZ Report Released Date/Time: Aug 16, 2024 03:45 PM Reporting Lab: [facility] [address] [place] [address] Performing Lab: [facility] [place] [phone] PROTIME 9.4 s 9.4-12.5 INR VALUE 0.8 {INR} Aug 19, 2024 09:59 AM [facility] ETHANOL SERUM/PLASMA (STL) PLASMA Specimen Typ e: PLASMA Comment: No hemolysis noted. Ordering Provider: DANIEL GOMEZ Report Released Date/Time: Aug 16, 2024 03:45 PM Reporting Lab: [facility] [address] [place] [phone] Performing Lab: [facility] [address] [place] [phone] ETHANOL SERUM/PLASMA (STL) <10.0 mg/dL 0 -10 Aug 19, 2024 09:59 AM [facility] GGT GAMMA-GT PLASMA Specimen Type: PLASM A No comment entered. Ordering Provider: DANIEL GOMEZ Report Released Date/Time: Aug 16, 2024 03:45 PM Reporting Lab: [facility] [address] [facility] [address] Performing Lab: [facility] [address] [facility] [phone] GGT GAMMA-GT 14 [IU]/L 12-64 Aug 19, 2024 09:59 AM [facility] MAGNESIUM PLASMA Specimen Type: PLASM A Comment: No hemolysis noted. Ordering Provider: DANIEL GOMEZ Report Released Date/Time: Aug 16, 2024 03:45 PM Reporting Lab: [facility] [address] [facility] [phone] Performing Lab: [facility] [address] [facility] [phone] MAGNESIUM 2.1 mg/dL 1.6-2.6 Aug 19, 2024 09:59 AM [facility] CPK SERUM Specimen Type: SERUM No comment entered. Ordering Provider: DANIEL GOMEZ Report Released Date/Time: Aug 16, 2024 03:45 PM Reporting Lab: [facility] [address] [facility] [phone] Performing Lab: [facility] [address] [facility] [phone] CPK 37 U/L 29-168 Aug 19, 2024 09:59 AM [facility] HEP C Ab HCV Ab (STL) SERUM Specimen Type: SE RUM No comment entered. Ordering Provider: DANIEL GOMEZ Report Released Date/Time: Aug 16, 2024 03:45 PM Reporting Lab: [facility] [address] [facility] [phone] Performing Lab: [facility] [address] [facility] [phone] HEP C Ab HCV Ab (STL) Nonreactive Nonrea ctive Aug 19, 2024 09:59 AM [facility] HIV COMBO FOURTH GENERATION (STL) SERUM Speci men Type: SERUM No comment entered. Ordering Provider: DANIEL GOMEZ Report Released Date/Time: Aug 16, 2024 03:45 PM Reporting Lab: [facility] [address] [facility] [phone] Performing Lab: [facility] [address] [facility] [address] HIV COMBO FOURTH GENERATION (STL) Nonreactive Nonreactive [...] AM VA-TOBACCO USE ALFONZO RY DAY CIGARETTES [facility] Tobacco Use History This section includes a history of the smoking, or tobacco-related health factors, that were collected on or before the date of the Encounter. The data comes from the [place] facility where the Encounter took place. 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 Date/Time Encounter Note(s) Provider Source Sep 06, 2024 11:10 AM ADDICTION PSYCHIAT RY NOTE: LOCAL TITLE: SAR[facility]P REHABILITATION L STANDARD TITLE: ADDICTION PSYCHIATRY NOTE DATE OF NOTE: SEP 06, 2024@11:10 ENTRY DATE: SEP 06, 2024@11:10:39 AUTHOR: TOMI ROSAS EXP COSIGNER: URGENCY: STATUS: COMPLETED GROUP TITLE: Pet therapy GROUP TIME: 10:15-11:00 AM DURATION OF GROUP: 45 MINUTES NUMBER IN ATTENDANCE: OBJECTIVE OF GROUP: Learn about mental health/therapeutic benefits of owning a pet. INTERVENTIONS: -Discussed therapeutic reasons for owning a pet: exercise, alleviate stress, lower blood pressure, lower risk of heart attack and stroke. and alleviate depression. -Understand how our animals know when we are under the influence of drugs/alcohol and the difference between a service dog and an emotional service animal. - Therapy dog catcher engaged veterans with visit from therapy dog. VETERANS LEVEL OF ENGAGEMENT Comments: [place] asked questions about eligibility for service dogs, organizations to seek service dogs and training required for them to be certified. RESPONSE TO INTERVENTION (Optional):Veterans asked questions pertaining to the difference between an emotional servica animal, a therapy dog and a service dog. RISK ASSESSMENT: did not verbalize any new risk factors related to suicidal or homicidal ideation during session. PLAN: NA DIAGNOSIS:Cannabis/Opioids /Cocaine /es/ TOMI ROSAS Addiction Therapist, [facility] [address] [place] [address] / THANH Signed: 09/06/2024 11:31 TOMI ROSAS [facility]
--- OUTSIDE RECORDS SUMMARY | 2025-02-23 10:58 | XMS_ITS | Encounter Summary ---
Author Name [facility] Organization [facility] Address [address] [place] [address] Support Name Relationship Address Phone FUAD CHRISTINE [...] MEDIC AID Aug 02, 2015 MEDICAI D [id number] [phone] STACIE JENNIFER PATIENT [facility] (WNR) MEDICAID MEDIC AID [facility] (WNR) Dec 01, 2023 MEDICAI D [id number] JENNIFER QUINONES PATIENT Selected Encounter This section includes the information on record at ID for the Encounter. Date/Time Encounter Type Encounter Description Reason Provider Source Aug 27, 2024 06:15 PM SELF-MGMT EDUC/TRAIN 5-8 PT SUBSTANCE USE DISORDR GRP ICD-10-CM F12.10 Cannabis abuse, uncomplicated STANLEYDAIN TRONCOSO S IHE Encounter Template Text not used by [facility] Assessments - Encounter Diagnoses This section includes the primary and secondary diagnoses documented for the Encounter. Date/Time Primary/Secondary Diagnosis Diagnosis Name Provider Source Aug 27, 2024 07:05 PM PRIMARY Cannabis abuse, uncomplicated STANLEYVIELKA S [facility] Plan of Treatment: Future Appointments (+ 6 months) and Future Tests (+/- 45 days) The Plan of Treatment section includes future care activities for the patient [facility] This section includes future appointments and future orders which are active, pending or scheduled. Future Appointments This section includes appointments that were scheduled to occur 6 months from the date of the Encounter, up to a maximum of 20 appointments. The data comes from all ID treatment facilities. Appointment Date/Time Appointment Type Appointme [...] 01, 2024 02:00 PM AMBULATORY - NONE [facility] Oct 09, 2024 03:00 PM AMBULATORY - MEDICINE [facility] Oct 16, 2024 01:00 PM AMBULATORY - PSYCHIATRY [facility] Oct 30, 2024 01:00 PM AMBULATORY - PSYCHIATRY [facility] Nov 27, 2024 01:00 PM AMBULATORY - PSYCHIATRY [facility] Dec 04, 2024 01:00 PM AMBULATORY - PSYCHIATRY [facility] Dec 11, 2024 01:00 PM AMBULATORY - PSYCHIATRY [facility] Dec 18, 2024 01:00 PM AMBULATORY - PSYCHIATRY [facility] Dec 25, 2024 01:00 PM AMBULATORY - PSYCHIATRY [facility] February 05, 2025 09:30 AM AMBULATORY - PSYCHIATRY [facility] Lab Results: +/- 30 days [...] Type Comment Sep 03, 2024 12:00 PM [facility] URINE DRUG SCREEN (STL) URINE Specimen Type: URINE Comment: The cut-off value for Fentanyl was laboratory developed and its performance characteristics confirmed by the [facility] laboratory thru method comparison with reference laboratory and medication chart review. The laboratory is regulated under CLIA as qualified to perform high-complexity testing. Fentanyl is used for clinical purposes in conjunction with other laboratory tests. Ordering Provider: DANIEL GOMEZ Report Released Date/Time: Sep 02, 2024 08:27 PM Reporting Lab: [facility] [facility] [address] Performing Lab: [facility] [facility] [address] ETHANOL <10.0 mg/dL 0-9 AMPHET/METHAMPHETAMINE Negative ng/mL COCAINE METABOLITES Negative ng/mL BENZODIAZEPINES (STL) Negative ng/mL CANNABINOIDS POSITIVE ng/mL METHADONE Negative ng/mL OPIATES Negative ng/mL CREATININE URINE/OTHERS 110.1 mg/dL H 47.0 -110.0 OXYCODONE ([id number]) Negative ng/mL BUPRENORPHINE (STL-PB-MA) Negative ng/mL FENTANYL (STL-PB) Negative ng/mL Aug 25, 2024 02:03 PM [facility] URINE DRUG SCREEN (STL) URINE Specimen Type: URINE Comment: The cut-off value for Fentanyl was laboratory developed and its performance characteristics confirmed by the [facility] laboratory thru method comparison with reference laboratory and medication chart review. The laboratory is regulated under CLIA as qualified to perform high-complexity testing. Fentanyl is used for clinical purposes in conjunction with other laboratory tests. Ordering Provider: DANIEL GOMEZ Report Released Date/Time: Aug 24, 2024 07:24 PM Reporting Lab: [facility] [address] [facility] [address] Performing Lab: [facility] [address] [facility] [address] ETHANOL Negative mg/dL 0-20 AMPHET/METHAMPHETAMINE Negative ng/mL COCAINE METABOLITES Negative ng/mL BENZODIAZEPINES (STL) Negative ng/mL CANNABINOIDS POSITIVE ng/mL METHADONE Negative ng/mL OPIATES Negative ng/mL CREATININE URINE/OTHERS 39.0 mg/dL L 47-11 0 OXYCODONE ([id number]) Negative ng/mL BUPRENORPHINE (STL-PB-MA) Negative ng/mL FENTANYL (STL-PB) Negative ng/mL Aug 20, 2024 07:13 AM [facility] URINALYSIS W/ CX REFLEX (STL-PB) URINE Specim en Type: URINE No comment entered. Ordering Provider: DANIEL GOMEZ Report Released Date/Time: Aug 19, 2024 11:04 AM Reporting Lab: [facility] [place] [address] Performing Lab: [facility] [place] [address] URINE COLOR Yellow Yellow U.BILIRUBIN Negative mg/dL [...] GRAVITY 1.028 Aug 19, 2024 10:08 AM [facility] URINALYSIS (STL-PB) URINE Specimen Type: URIN E No comment entered. Ordering Provider: DANIEL GOMEZ Report Released Date/Time: Aug 16, 2024 03:45 PM Reporting Lab: [facility] [facility] [address] Performing Lab: [facility] [address] [place] [address] URINE COLOR Yellow Yellow U.BILIRUBIN Negative mg/dL [...] 1.035 H Aug 19, 2024 10:08 AM [facility] TEST URINE (MA-STL) URINE Specimen Type: URINE No comment entered. Ordering Provider: DANIEL GOMEZ Report Released Date/Time: Aug 16, 2024 03:45 PM Reporting Lab: [facility] [address] Performing Lab: [facility] [facility] [address] Qualitative Test NEG NEGAT URBAN Aug 19, 2024 10:08 AM [facility] URINE DRUG SCREEN (STL) URINE Specimen Type: URINE Comment: The cut-off value for Fentanyl was laboratory developed and its performance characteristics confirmed by the [facility] laboratory thru method comparison with reference laboratory and medication chart review. The laboratory is regulated under CLIA as qualified to perform high-complexity testing. Fentanyl is used for clinical purposes in conjunction with other laboratory tests. Ordering Provider: DANIEL GOMEZ Report Released Date/Time: Aug 16, 2024 03:45 PM Reporting Lab: [facility] [facility] [address] Performing Lab: [facility] [facility] [address] ETHANOL Negative mg/dL 0-20 AMPHET/METHAMPHETAMINE Negative ng/mL COCAINE METABOLITES Negative ng/mL BENZODIAZEPINES (STL) Negative ng/mL CANNABINOIDS POSITIVE ng/mL METHADONE Negative ng/mL OPIATES POSITIVE ng/mL CREATININE URINE/OTHERS 266.1 mg/dL H 47.0 -110.0 OXYCODONE ([id number]) Negative ng/mL BUPRENORPHINE (STL-PB-MA) Negative ng/mL FENTANYL (STL-PB) Negative ng/mL Aug 19, 2024 10:00 AM [facility] CBC BLOOD Specimen Type: BLOOD No comment entered. Ordering Provider: DANIEL GOMEZ Report Released Date/Time: Aug 16, 2024 03:45 PM Reporting Lab: [facility] [facility] [address] Performing Lab: [facility] [facility] [address] WBC 12.7 10*3/uL H 3.6-11.2 RBC 4.19 [...] 0.00-0. 20 Aug 19, 2024 09:59 AM [facility] COMPREHENSIVE METABOLIC PANEL PLASMA Specimen Type: PLASMA Comment: No hemolysis noted. Ordering Provider: DANIEL GOMEZ Report Released Date/Time: Aug 16, 2024 03:45 PM Reporting Lab: [facility] [facility] [address] Performing Lab: [facility] [facility] [address] CREATININE 0.75 mg/dL 0.60-1.10 UREA NITROGEN 12.0 [...] 104.44 >60 Aug 19, 2024 09:59 AM [facility] PT/INR NEW (STL-MA) PLASMA Specimen Type: PLAS MA No comment entered. Ordering Provider: DANIEL GOMEZ Report Released Date/Time: Aug 16, 2024 03:45 PM Reporting Lab: [facility] [facility] [address] Performing Lab: [facility] [facility] [address] PROTIME 9.4 s 9.4-12.5 INR VALUE 0.8 {INR} Aug 19, 2024 09:59 AM [facility] ETHANOL SERUM/PLASMA (STL) PLASMA Specimen Typ e: PLASMA Comment: No hemolysis noted. Ordering Provider: DANIEL GOMEZ Report Released Date/Time: Aug 16, 2024 03:45 PM Reporting Lab: [facility] [facility] [address] Performing Lab: [facility] [facility] [address] ETHANOL SERUM/PLASMA (STL) <10.0 mg/dL 0 -10 Aug 19, 2024 09:59 AM [facility] GGT GAMMA-GT PLASMA Specimen Type: PLASM A No comment entered. Ordering Provider: DANIEL GOMEZ Report Released Date/Time: Aug 16, 2024 03:45 PM Reporting Lab: [facility] [address] [facility] [facility] [address] Performing Lab: [facility] [address] [facility] [address] GGT GAMMA-GT 14 [IU]/L 12-64 Aug 19, 2024 09:59 AM [facility] MAGNESIUM PLASMA Specimen Type: PLASM A Comment: No hemolysis noted. Ordering Provider: DANIEL GOMEZ Report Released Date/Time: Aug 16, 2024 03:45 PM Reporting Lab: [facility] [facility] [address] Performing Lab: [facility] [facility] [address] MAGNESIUM 2.1 mg/dL 1.6-2.6 Aug 19, 2024 09:59 AM [facility] CPK SERUM Specimen Type: SERUM No comment entered. Ordering Provider: DANIEL GOMEZ Report Released Date/Time: Aug 16, 2024 03:45 PM Reporting Lab: [facility] [facility] [address] Performing Lab: [facility] [facility] [address] CPK 37 U/L 29-168 Aug 19, 2024 09:59 AM [facility] HEP C Ab HCV Ab (STL) SERUM Specimen Type: SE RUM No comment entered. Ordering Provider: DANIEL GOMEZ Report Released Date/Time: Aug 16, 2024 03:45 PM Reporting Lab: [facility] [address] [facility] [address] Performing Lab: [facility] [address] [facility] [address] HEP C Ab HCV Ab (STL) Nonreactive Nonrea ctive Aug 19, 2024 09:59 AM [facility] HIV COMBO FOURTH GENERATION (STL) SERUM Speci men Type: SERUM No comment entered. Ordering Provider: DANIEL GOMEZ Report Released Date/Time: Aug 16, 2024 03:45 PM Reporting Lab: [facility] [address] [facility] [address] Performing Lab: [facility] [address] [facility] [address] HIV COMBO FOURTH GENERATION (STL) Nonreactive Nonreactive Encounter Notes: All associated encounter notes This section contains the clinical notes associated to the Encounter. Date/Time Encounter Note(s) Provider Source Aug 27, 2024 06:15 PM PSYCHIATRY GROUP COUNSELING NOTE: LOCAL TITLE: S PSYCHIATRY GROUP NOTE STL STANDARD TITLE: PSYCHIATRY GROUP COUNSELING NOTE DATE OF NOTE: AUG 27, 2024@18:15 ENTRY DATE: AUG 27, 2024@18:59:50 AUTHOR: STEPHANIE STANLEY COSIGNER: URGENCY: STATUS: COMPLETED PATIENT DIAGNOSIS: Substance Abuse DISCIPLINE/SERVICE(S) PROVIDING GROUP: Nursing GROUP TIME: [phone] PATIENT PROBLEM ADDRESSED IN THIS GROUP: Substance Abuse GROUP TOPIC(S): Substance Abuse GROUP CONTENT: VETS WERE ENCOURAGED TO REFLECT ON DECISIONS AND CHOICES THEY HAVE MADE IN THAT HAVE BROUGHT THEM TO THIS POINT IN THEIR LIVES AND HOW AND WHAT THEY ARE GOING TO DO DIFFERENTLY TO MAKE SURE THEY DONT GO BACK DOWN THIS PATH. THIS DISCUSSION WAS NOT BASED ON MODELS OF RECOVERY BUT MORE ABOUT DEEP BELIEF SYSTEMS. GROUP GOALS: achieved PATIENT RESPONSE: Active Participated meaningfully Number of patients in group: Mahendra sanjeev/ STEPHANIE STANLEY Registered NurseTHANH 51E Signed: 08/27/2024 19:10 STEPHANIE STANLEY [facility] THANH
--- OUTSIDE RECORDS SUMMARY | 2025-02-23 10:58 | XMS_ITS | Encounter Summary ---
Author Name [facility] (MD) Organization [facility] (MD) Address [address] [place] [address] Support Name Relationship Address Phone FUAD CHRISTINE [...] MEDIC AID Aug 02, 2015 MEDICAI D [id number] [phone] STACIE JENNIFER PATIENT [facility] (WNR) MEDICAID MEDIC AID [facility] (WNR) Dec 01, 2023 MEDICAI D [id number] JENNIFER QUINONES PATIENT Selected Encounter This section includes the information on record at MD for the Encounter. Date/Time Encounter Type Encounter Description Reason Provider Source Sep 07, 2024 01:00 PM SELF-MGMT EDUC/TRAIN 5-8 PT SUBSTANCE USE DISORDR GRP ICD-10-CM F14.90 Cocaine use, unspecified, uncomplicated RUSH OLMSTEAD Peggy Encounter Template Text not used by MD Assessments - Encounter Diagnoses This section includes the primary and secondary diagnoses documented for the Encounter. Date/Time Primary/Secondary Diagnosis Diagnosis Name Provider Source Sep 07, 2024 03:08 PM PRIMARY Cocaine use, unspecified, uncomplicated BOBY OLMSTEAD [facility] Plan of Treatment: Future Appointments (+ 6 months) and Future Tests (+/- 45 days) The Plan of Treatment section includes future care activities for the patient from [facility] This section includes future appointments and future orders which are active, pending or scheduled. Future Appointments This section includes appointments that were scheduled to occur 6 months from the date of the Encounter, up to a maximum of 20 appointments. The data comes from all MD treatment [facility]. Appointment Date/Time Appointment Type Appointme nt Facility Name Sep 10, 2024 12:30 PM AMBULATORY - PSYCHIATRY [facility] Sep 12, 2024 06:00 PM AMBULATORY - PSYCHIATRY [facility] Sep 17, 2024 06:00 PM AMBULATORY - PSYCHIATRY [facility] Sep 19, 2024 06:00 PM AMBULATORY - PSYCHIATRY [facility] Sep 26, 2024 06:00 PM AMBULATORY - PSYCHIATRY [facility] Oct 01, 2024 02:00 PM AMBULATORY - NONE [facility] Oct 09, 2024 03:00 PM AMBULATORY - MEDICINE [facility] Oct 16, 2024 01:00 PM AMBULATORY - PSYCHIATRY [facility] Oct 30, 2024 01:00 PM AMBULATORY - PSYCHIATRY [facility] Nov 27, 2024 01:00 PM AMBULATORY - PSYCHIATRY [facility] Dec 04, 2024 01:00 PM AMBULATORY - PSYCHIATRY [facility] Dec 11, 2024 01:00 PM AMBULATORY - PSYCHIATRY [facility] Dec 18, 2024 01:00 PM AMBULATORY - PSYCHIATRY [facility] Dec 25, 2024 01:00 PM AMBULATORY - PSYCHIATRY [facility] February 05, 2025 09:30 AM AMBULATORY - PSYCHIATRY [facility] Lab Results: +/- 30 days of the encounter This section includes the Chemistry and Hematology Lab Results on record with MD for the patient. Radiology Reports and Pathology Reports are provided separately, in subsequent sections. Lab Results This section contains the Chemistry/Hematology Results that were resulted 30 days before or 30 daysafter the date of the Encounter. Date/Time Source Result Type Result - Unit Interpretation Reference Range Specimen Type Comment Sep 03, 2024 12:00 PM [facility] URINE DRUG SCREEN (STL) URINE Specimen Type: URINE Comment: The cut-off value for Fentanyl was laboratory developed and its performance characteristics confirmed by the [facility] laboratory thru method comparison with reference laboratory and medication chart review. The laboratory is regulated under CLIA as qualified to perform high-complexity testing. Fentanyl is used for clinical purposes in conjunction with other laboratory tests. Ordering Provider: DANIEL GOMEZ Report Released Date/Time: Sep 02, 2024 08:27 PM Reporting Lab: [facility] [facility] [phone] Performing Lab: [facility] [facility] [phone] ETHANOL <10.0 mg/dL 0-9 AMPHET/METHAMPHETAMINE Negative ng/mL COCAINE METABOLITES Negative ng/mL BENZODIAZEPINES (STL) Negative ng/mL CANNABINOIDS POSITIVE ng/mL METHADONE Negative ng/mL OPIATES Negative ng/mL CREATININE URINE/OTHERS 110.1 mg/dL H 47.0 -110.0 OXYCODONE ([id number]) Negative ng/mL BUPRENORPHINE (STL-PB-MA) Negative ng/mL FENTANYL (STL-PB) Negative ng/mL Aug 25, 2024 02:03 PM [facility] URINE DRUG SCREEN (STL) URINE Specimen Type: URINE Comment: The cut-off value for Fentanyl was laboratory developed and its performance characteristics confirmed by the [facility] laboratory thru method comparison with reference laboratory and medication chart review. The laboratory is regulated under CLIA as qualified to perform high-complexity testing. Fentanyl is used for clinical purposes in conjunction with other laboratory tests. Ordering Provider: DANIEL GOMEZ Report Released Date/Time: Aug 24, 2024 07:24 PM Reporting Lab: [facility] [address] [facility] [phone] Performing Lab: [facility] [address] [facility] [address] ETHANOL Negative mg/dL 0-20 AMPHET/METHAMPHETAMINE Negative ng/mL COCAINE METABOLITES Negative ng/mL BENZODIAZEPINES (STL) Negative ng/mL CANNABINOIDS POSITIVE ng/mL METHADONE Negative ng/mL OPIATES Negative ng/mL CREATININE URINE/OTHERS 39.0 mg/dL L 47-11 0 OXYCODONE ([id number]) Negative ng/mL BUPRENORPHINE (STL-PB-MA) Negative ng/mL FENTANYL (STL-PB) Negative ng/mL Aug 20, 2024 07:13 AM [facility] URINALYSIS W/ CX REFLEX (STL-PB) URINE Specim en Type: URINE No comment entered. Ordering Provider: DANIEL GOMEZ Report Released Date/Time: Aug 19, 2024 11:04 AM Reporting Lab: [facility] [place] [phone] Performing Lab: [facility] [place] [address] URINE COLOR Yellow Yellow U.BILIRUBIN Negative mg/dL [...] AM [facility] URINALYSIS (STL-PB) URINE Specimen Type: URIN E No comment entered. Ordering Provider: DANIEL GOMEZ Report Released Date/Time: Aug 16, 2024 03:45 PM Reporting Lab: [facility] [facility] [phone] Performing Lab: [facility] [place] [address] URINE COLOR Yellow Yellow U.BILIRUBIN Negative mg/dL [...] AM [facility] TEST URINE (MA-STL) URINE Specimen Type: URINE No comment entered. Ordering Provider: DANIEL GOMEZ Report Released Date/Time: Aug 16, 2024 03:45 PM Reporting Lab: [facility] [facility] [phone] Performing Lab: [facility] [facility] [address] Qualitative Test NEG NEGAT URBAN Aug 19, 2024 10:08 AM [facility] URINE DRUG SCREEN (STL) URINE Specimen Type: URINE Comment: The cut-off value for Fentanyl was laboratory developed and its performance characteristics confirmed by the [facility] laboratory thru method comparison with reference laboratory and medication chart review. The laboratory is regulated under CLIA as qualified to perform high-complexity testing. Fentanyl is used for clinical purposes in conjunction with other laboratory tests. Ordering Provider: DANIEL GOMEZ Report Released Date/Time: Aug 16, 2024 03:45 PM Reporting Lab: [facility] [facility] [phone] Performing Lab: [facility] [facility] [phone] ETHANOL Negative mg/dL 0-20 AMPHET/METHAMPHETAMINE Negative ng/mL COCAINE METABOLITES Negative ng/mL BENZODIAZEPINES (STL) Negative ng/mL CANNABINOIDS POSITIVE ng/mL METHADONE Negative ng/mL OPIATES POSITIVE ng/mL CREATININE URINE/OTHERS 266.1 mg/dL H 47.0 -110.0 OXYCODONE ([id number]-TS) Negative ng/mL BUPRENORPHINE (STL-PB-MA) Negative ng/mL FENTANYL (STL-PB) Negative ng/mL Aug 19, 2024 10:00 AM [facility] CBC BLOOD Specimen Type: BLOOD No comment entered. Ordering Provider: DANIEL GOMEZ Report Released Date/Time: Aug 16, 2024 03:45 PM Reporting Lab: [facility] [facility] [phone] Performing Lab: [facility] [address] [place] [phone] WBC 12.7 10*3/uL H 3.6-11.2 RBC 4.19 [...] AM [facility] COMPREHENSIVE METABOLIC PANEL PLASMA Specimen Type: PLASMA Comment: No hemolysis noted. Ordering Provider: DANIEL GOMEZ Report Released Date/Time: Aug 16, 2024 03:45 PM Reporting Lab: [facility] [facility] [phone] Performing Lab: [facility] [address] [place] [phone] CREATININE 0.75 mg/dL 0.60-1.10 UREA NITROGEN 12.0 [...] 104.44 >60 Aug 19, 2024 09:59 AM [facility] PT/INR NEW (STL-MA) PLASMA Specimen Type: PLAS MA No comment entered. Ordering Provider: DANIEL GOMEZ Report Released Date/Time: Aug 16, 2024 03:45 PM Reporting Lab: [facility] [place] [address] Performing Lab: [facility] [place] [address] PROTIME 9.4 s 9.4-12.5 INR VALUE 0.8 {INR} Aug 19, 2024 09:59 AM [facility] ETHANOL SERUM/PLASMA (STL) PLASMA Specimen Typ e: PLASMA Comment: No hemolysis noted. Ordering Provider: DANIEL GOMEZ Report Released Date/Time: Aug 16, 2024 03:45 PM Reporting Lab: [facility] [facility] [phone] Performing Lab: [facility] [facility] [phone] ETHANOL SERUM/PLASMA (STL) <10.0 mg/dL 0 -10 Aug 19, 2024 09:59 AM [facility] GGT GAMMA-GT PLASMA Specimen Type: PLASM A No comment entered. Ordering Provider: DANIEL GOMEZ Report Released Date/Time: Aug 16, 2024 03:45 PM Reporting Lab: [facility] [address] [facility] [phone] Performing Lab: [facility] [address] [facility] [phone] GGT GAMMA-GT 14 [IU]/L 12-64 Aug 19, 2024 09:59 AM [facility] MAGNESIUM PLASMA Specimen Type: PLASM A Comment: No hemolysis noted. Ordering Provider: DANIEL GOMEZ Report Released Date/Time: Aug 16, 2024 03:45 PM Reporting Lab: [facility] [facility] [phone] Performing Lab: [facility] [address] [facility] [phone] MAGNESIUM 2.1 mg/dL 1.6-2.6 Aug 19, 2024 09:59 AM [facility] CPK SERUM Specimen Type: SERUM No comment entered. Ordering Provider: DANIEL GOMEZ Report Released Date/Time: Aug 16, 2024 03:45 PM Reporting Lab: [facility] [facility] [phone] Performing Lab: [facility] [facility] [phone] CPK 37 U/L 29-168 Aug 19, 2024 09:59 AM [facility] HEP C Ab HCV Ab (STL) SERUM Specimen Type: SE RUM No comment entered. Ordering Provider: DANIEL GOMEZ Report Released Date/Time: Aug 16, 2024 03:45 PM Reporting Lab: [facility] [address] [facility] [address] Performing Lab: [facility] [address] [facility] [phone] HEP C Ab HCV Ab (STL) Nonreactive Nonrea ctive Aug 19, 2024 09:59 AM [facility] HIV COMBO FOURTH GENERATION (STL) SERUM Speci men Type: SERUM No comment entered. Ordering Provider: DANIEL GOMEZ Report Released Date/Time: Aug 16, 2024 03:45 PM Reporting Lab: [facility] [address] [facility] [address] Performing Lab: [facility] [address] [facility] [phone] HIV COMBO FOURTH GENERATION (STL) Nonreactive Nonreactive Encounter Notes: All associated encounter notes This section contains the clinical notes associated to the Encounter. Date/Time Encounter Note(s) Provider Source Sep 07, 2024 03:02 PM PSYCHIATRY GROUP C GURPREET NOTE: LOCAL TITLE: [facility]YCHI[facility]RY GROUP NOTE STL STANDARD TITLE: PSYCHIATRY GROUP COUNSELING NOTE DATE OF NOTE: SEP 07, 2024@15:02 ENTRY DATE: SEP 07, 2024@15:02:29 AUTHOR: SURYA OLMSTEAD EXP COSIGNER: URGENCY: STATUS: COMPLETED PATIENT DIAGNOSIS: Substance Abuse DISCIPLINE/SERVICE(S) PROVIDING GROUP: Nursing GROUP TIME: [phone] PATIENT PROBLEM ADDRESSED IN THIS GROUP: Socialization in a substance free environment GROUP TOPIC(S): Socialization GROUP CONTENT: Veterans spent time in the gym enjoying karaoke and socializing with other veterans and volunteers. GROUP GOALS: achieved PATIENT RESPONSE: Active Participated meaningfully Number of patients in group: 125 /es/ SURYA BOYD MBA RN REGISTERED NURSE Signed: 09/07/2024 15:11 SURYA OLMSTEAD [facility]
--- OUTSIDE RECORDS SUMMARY | 2025-02-23 10:58 | XMS_ITS ---
Author Name [facility] (ID) Organization [facility] (ID) Address [address] [place] [id number] Support Name Relationship Address Phone FUAD CHRISTINE Next of Kin Unknown CHRISTINE MERIDA Emergency Contact Unknown [phone] Insurance Providers: All historical and current Section [...] MEDIC AID Aug 02, 2015 MEDICAI D [id number] [phone] STACIE AYEJENNIFER PATIENT [facility] (WNR) MEDICAID MEDIC AID [facility] (WNR) Dec 01, 2023 MEDICAI D [id number] STACIE JENNIFER PATIENT Selected Encounter This section includes the information on record at ID for the Encounter. Date/Time Encounter Type Encounter Description Reason Provider Source Sep 02, 2024 08:20 AM DIAMOND DRILLER HELPER PAIN MANAGEMENT PHYSICIAN INDIVIDU [facility]AM[facility] DRILLER HELPER SERVICE - INDIVIDUAL ICD-10-CM Z71.81 Spiritual or alevism counseling ALBERTO PALOMO [facility] Encounter Template Text not used by ID Assessments - Encounter Diagnoses This section includes the primary and secondary diagnoses documented for the Encounter. Date/Time Primary/Secondary Diagnosis Diagnosis Name Provider Source Sep 02, 2024 10:39 AM PRIMARY Spiritual or alevism counseling ALBERTO PALOMO [facility] Plan of Treatment: Future Appointments (+ 6 months) and Future Tests (+/- 45 days) The Plan of Treatment section includes future care activities for the patient [facility] This section includes future appointments and [...] 10, 2024 12:30 PM AMBULATORY - PSYCHIATRY [facility] Sep 12, 2024 06:00 PM AMBULATORY - PSYCHIATRY [facility] Sep 17, 2024 06:00 PM AMBULATORY - PSYCHIATRY [facility] Sep 19, 2024 06:00 PM AMBULATORY - PSYCHIATRY [facility] Sep 26, 2024 06:00 PM AMBULATORY - PSYCHIATRY [facility] Oct 01, 2024 02:00 PM AMBULATORY - NONE [facility] Oct 09, 2024 03:00 PM AMBULATORY - MEDICINE [facility] Oct 16, 2024 01:00 PM AMBULATORY - PSYCHIATRY [facility] Oct 30, 2024 01:00 PM AMBULATORY - PSYCHIATRY [facility] Nov 27, 2024 01:00 PM AMBULATORY - PSYCHIATRY [facility] Dec 04, 2024 01:00 PM AMBULATORY - PSYCHIATRY [facility] Dec 11, 2024 01:00 PM AMBULATORY - PSYCHIATRY [facility] Dec 18, 2024 01:00 PM AMBULATORY - PSYCHIATRY [facility] Dec 25, 2024 01:00 PM AMBULATORY - PSYCHIATRY [facility] February 05, 2025 09:30 AM AMBULATORY - PSYCHIATRY [facility] Lab Results: +/- 30 days of [...] Comment Sep 03, 2024 12:00 PM [facility] URINE DRUG SCREEN (STL) URINE Specimen Type: URINE Comment: The cut-off value for Fentanyl was laboratory developed and its performance characteristics confirmed by the [facility] laboratory thru method comparison with reference laboratory and medication chart review. The laboratory is regulated under CLIA as qualified to perform high-complexity testing. Fentanyl is used for clinical purposes in conjunction with other laboratory tests. Ordering Provider: DANIEL GOMEZ Report Released Date/Time: Sep 02, 2024 08:27 PM Reporting Lab: [facility] [address] Performing Lab: [facility] [phone] ETHANOL <10.0 mg/dL 0-9 AMPHET/METHAMPHETAMINE Negative ng/mL COCAINE METABOLITES Negative ng/mL BENZODIAZEPINES (STL) Negative ng/mL CANNABINOIDS POSITIVE ng/mL METHADONE Negative ng/mL OPIATES Negative ng/mL CREATININE URINE/OTHERS 110.1 mg/dL H 47.0 -110.0 OXYCODONE ([id number]) Negative ng/mL BUPRENORPHINE (STL-PB-MA) Negative ng/mL FENTANYL (STL-PB) Negative ng/mL Aug 25, 2024 02:03 PM [facility] URINE DRUG SCREEN (STL) URINE Specimen Type: URINE Comment: The cut-off value for Fentanyl was laboratory developed and its performance characteristics confirmed by the [facility] laboratory thru method comparison with reference laboratory and medication chart review. The laboratory is regulated under CLIA as qualified to perform high-complexity testing. Fentanyl is used for clinical purposes in conjunction with other laboratory tests. Ordering Provider: DANIEL GOMEZ Report Released Date/Time: Aug 24, 2024 07:24 PM Reporting Lab: [facility] [address] [facility] [address] Performing Lab: [facility] [address] [facility] [address] ETHANOL Negative mg/dL 0-20 AMPHET/METHAMPHETAMINE Negative ng/mL COCAINE METABOLITES Negative ng/mL BENZODIAZEPINES (STL) Negative ng/mL CANNABINOIDS POSITIVE ng/mL METHADONE Negative ng/mL OPIATES Negative ng/mL CREATININE URINE/OTHERS 39.0 mg/dL L 47-11 0 OXYCODONE ([id number]) Negative ng/mL BUPRENORPHINE (STL-PB-MA) Negative ng/mL FENTANYL (STL-PB) Negative ng/mL Aug 20, 2024 07:13 AM [facility] URINALYSIS W/ CX REFLEX (STL-PB) URINE Specim en Type: URINE No comment entered. Ordering Provider: DANIEL GOMEZ Report Released Date/Time: Aug 19, 2024 11:04 AM Reporting Lab: [facility] [place] [address] Performing Lab: [facility] [place] [address] URINE COLOR Yellow Yellow U.BILIRUBIN Negative mg/dL [...] [facility] [phone] Performing Lab: [facility] [place] [address] URINE COLOR Yellow Yellow U.BILIRUBIN Negative mg/dL [...] H Aug 19, 2024 10:08 AM [facility] TEST URINE (MA-STL) URINE Specimen Type: URINE No comment entered. Ordering Provider: DANIEL GOMEZ Report Released Date/Time: Aug 16, 2024 03:45 PM Reporting Lab: [facility] [address] Performing Lab: [facility] [phone] Qualitative Test NEG NEGAT URBAN Aug 19, 2024 10:08 AM [facility] URINE DRUG SCREEN (STL) URINE Specimen Type: URINE Comment: The cut-off value for Fentanyl was laboratory developed and its performance characteristics confirmed by the [facility] laboratory thru method comparison with reference laboratory and medication chart review. The laboratory is regulated under CLIA as qualified to perform high-complexity testing. Fentanyl is used for clinical purposes in conjunction with other laboratory tests. Ordering Provider: DANIEL GOMEZ Report Released Date/Time: Aug 16, 2024 03:45 PM Reporting Lab: [facility] [address] Performing Lab: [facility] [facility] [address] ETHANOL Negative mg/dL 0-20 AMPHET/METHAMPHETAMINE Negative ng/mL COCAINE METABOLITES Negative ng/mL BENZODIAZEPINES (STL) Negative ng/mL CANNABINOIDS POSITIVE ng/mL METHADONE Negative ng/mL OPIATES POSITIVE ng/mL CREATININE URINE/OTHERS 266.1 mg/dL H 47.0 -110.0 OXYCODONE ([id number]) Negative ng/mL BUPRENORPHINE (STL-PB-MA) Negative ng/mL FENTANYL (STL-PB) Negative ng/mL Aug 19, 2024 10:00 AM [facility] CBC BLOOD Specimen Type: BLOOD No comment entered. Ordering Provider: DANIEL GOMEZ Report Released Date/Time: Aug 16, 2024 03:45 PM Reporting Lab: [facility] [address] Performing Lab: [facility] [facility] [address] WBC 12.7 10*3/uL H 3.6-11.2 RBC 4.19 [...] 20 Aug 19, 2024 09:59 AM [facility] COMPREHENSIVE METABOLIC PANEL PLASMA Specimen Type: PLASMA Comment: No hemolysis noted. Ordering Provider: DANIEL GOMEZ Report Released Date/Time: Aug 16, 2024 03:45 PM Reporting Lab: [facility] [address] Performing Lab: [facility] [address] CREATININE 0.75 mg/dL 0.60-1.10 UREA NITROGEN 12.0 [...] 19, 2024 09:59 AM [facility] PT/INR NEW (STL-MA) PLASMA Specimen Type: PLAS MA No comment entered. Ordering Provider: DANIEL GOMEZ Report Released Date/Time: Aug 16, 2024 03:45 PM Reporting Lab: [facility] [place] [address] Performing Lab: [facility] [address] PROTIME 9.4 s 9.4-12.5 INR VALUE 0.8 {INR} Aug 19, 2024 09:59 AM [facility] ETHANOL SERUM/PLASMA (STL) PLASMA Specimen Typ e: PLASMA Comment: No hemolysis noted. Ordering Provider: DANIEL GOMEZ Report Released Date/Time: Aug 16, 2024 03:45 PM Reporting Lab: [facility] [address] Performing Lab: [facility] [address] ETHANOL SERUM/PLASMA (STL) <10.0 mg/dL 0 -10 Aug 19, 2024 09:59 AM [facility] GGT GAMMA-GT PLASMA Specimen Type: PLASM A No comment entered. Ordering Provider: DANIEL GOMEZ Report Released Date/Time: Aug 16, 2024 03:45 PM Reporting Lab: [facility] [address] [facility] [address] Performing Lab: [facility] [address] [facility] [address] GGT GAMMA-GT 14 [IU]/L 12-64 Aug 19, 2024 09:59 AM [facility] MAGNESIUM PLASMA Specimen Type: PLASM A Comment: No hemolysis noted. Ordering Provider: DANIEL GOMEZ Report Released Date/Time: Aug 16, 2024 03:45 PM Reporting Lab: [facility] [facility] [address] Performing Lab: [facility] [facility] [address] MAGNESIUM 2.1 mg/dL 1.6-2.6 Aug 19, 2024 09:59 AM [facility] CPK SERUM Specimen Type: SERUM No comment entered. Ordering Provider: DANIEL GOMEZ Report Released Date/Time: Aug 16, 2024 03:45 PM Reporting Lab: [facility] [facility] [address] Performing Lab: [facility] [facility] [address] CPK 37 U/L 29-168 Aug 19, 2024 09:59 AM [facility] HEP C Ab HCV Ab (STL) SERUM Specimen Type: SE RUM No comment entered. Ordering Provider: DANIEL GOMEZ Report Released Date/Time: Aug 16, 2024 03:45 PM Reporting Lab: [facility] [address] [facility] [address] Performing Lab: [facility] [address] [facility] [phone] HEP C Ab HCV Ab (STL) Nonreactive Nonrea ctive Aug 19, 2024 09:59 AM [facility] HIV COMBO FOURTH GENERATION (STL) SERUM Speci men Type: SERUM No comment entered. Ordering Provider: DANIEL GOMEZ Report Released Date/Time: Aug 16, 2024 03:45 PM Reporting Lab: [facility] [address] [facility] [address] Performing Lab: [facility] [address] [facility] [address] HIV COMBO FOURTH GENERATION (STL) Nonreactive Nonreactive Social History: Smoking Status (Most current) and Tobacco Use (All prior to encounter date) This section includes the most current, and the historical, smoking and tobacco- related health factors from the [facility] where the Encounter took place. Current Smoking Status This section includes the most current smoking, or tobacco-related health factor, from the ID facility where the Encounter took place. Date/Time Current Smoking Status Comment Facil ity Aug 19, 2024 10:33 AM VA-TOBACCO USE ALFONZO RY DAY CIGARETTES [facility] Tobacco Use History This section includes a history of the smoking, or tobacco-related health factors, that were collected on or before the date of the Encounter. The data comes from the ID facility where the Encounter took place. Date/Time Smoking Status/Tobacco Use Comment F acility Aug 19, 2024 10:33 AM VA-TOBACCO SCREEN FOLLOW-UP [facility] Aug 19, 2024 10:33 AM VA-TOBACCO USE ADVICE [facility] Aug 19, 2024 10:33 AM VA-TOBACCO USE PAIN MANAGEMENT PHYSICIAN NO [facility] Aug 19, 2024 10:33 AM VA-TOBACCO USE ALFONZO RY DAY CIGARETTES [facility] Aug 19, 2024 10:33 AM VA-TOBACCO USE MED YES [facility] Aug 19, 2024 10:33 AM VA-TOBACCO USE WI 30 MIN OF WAKEUP [facility] Encounter Notes: All associated encounter notes This section contains the clinical notes associated to the Encounter. Date/Time Encounter Note(s) Provider Source Sep 02, 2024 08:20 AM PASTORAL CARE NOTE : LOCAL TITLE: PASTORAL CARE NOTE STANDARD TITLE: PASTORAL CARE NOTE DATE OF NOTE: SEP 02, 2024@08:20 ENTRY DATE: SEP 02, 2024@10:21:54 AUTHOR: ALBERTO PALOMO COSIGNER: URGENCY: STATUS: COMPLETED Pastoral Visit: Follow-up is known to parlor maid. Child Protection Specialist met with: Location: [facility]. [address] [place] [address] Yarsanism Preference: Other: [employer] Non-specific Assessment: Deanne showed me goals she is setting for when she leaves [facility]. The list included things like find a yazdanism, attend [employer], self-care, volunteer, identify hobbies, schedule Bible study, get adequate rest, etc. She is [facility] to [facility] in her town of [place], [place]. Her kids have friends who attend there. She is interesed in a [employer] at a yazdanism in [place], [place]. Her son was baptized with her on Monday. He is 9. She has 2 dtrs who are 11 and 14. She and her ex have joint custody and it works well as they live in the same town. Her 14 year-old is a great cruz. She was chosen for a select choir. She would like her children to attend [employer]. She at 19 and wished she had gone away to college. I told her about some colleges, including some with very prominent choirs. Her son is talking about how much he doesn't like his current school. She plans to look into a [employer] school for him. Deanne is forward- thinking and appears excited and hopeful for her journey. Initial Interaction: Doran approached parlor maid requesting visit, Informed of parlor maid's availability to discuss condition and concerns Spiritual resources appear: adequate Discussed 's relationship with: God, yazdanism, family Discussed 's concerns regarding: condition, spirituality INTERVENTION Offered / accepted: pastoral support, spiritual counseling , affirmation, shared resources. OUTCOMES 's Response: expressed appreciation for the visit Observations: experienced support FOLLOW-UP Child Protection Specialist will be available to as needed throughout this admission. /sanjeev/ Monica Palomo M.A., M.Julian, [facility] DIAMOND DRILLER HELPER Signed: 09/02/2024 10:39 ALBERTO PALOMO [facility]
--- OUTSIDE RECORDS SUMMARY | 2025-02-23 10:58 | XMS_ITS | Encounter Summary ---
Author Name [facility] [place] [facility] [place] Address [address] [place] [address] Support Name Relationship Address Phone FUAD CHRISTINE [...] MEDIC AID Aug 02, 2015 MEDICAI D [id number] [phone] STACIE JENNIFER PATIENT [facility] (WNR) MEDICAID MEDIC AID [facility] (WNR) Dec 01, 2023 MEDICAI D [id number] STACIE AYEJENNIFER PATIENT Selected Encounter This section includes the information on record at [place] for the Encounter. Date/Time Encounter Type Encounter Description Reason Provider Source Sep 06, 2024 09:00 PM SELF-MGMT EDUC/TRAIN 5-8 PT SUBSTANCE USE DISORDR GRP ICD-10-CM F12.20 Cannabis dependence, uncomplicated JOSÉ AGUSTIN IHE Encounter Template Text not used by [place] Assessments - Encounter Diagnoses This section includes the primary and secondary diagnoses documented for the Encounter. Date/Time Primary/Secondary Diagnosis Diagnosis Name Provider Source Sep 06, 2024 09:54 PM PRIMARY Cannabis dependence, uncomplicated PANTERA AGUSTIN L [facility] Plan of Treatment: Future Appointments (+ 6 months) and Future Tests (+/- 45 days) The Plan of Treatment section includes [facility] care activities for the [facility] [place] [facility] This section includes future appointments and future orders which are active, pending or scheduled. Future Appointments This section includes appointments that were scheduled to occur 6 months from the date of the Encounter, up to a maximum of 20 appointments. The data comes from all [place] treatment facilities. Appointment Date/Time Appointment Type Appointme nt Facility Name Sep 10, 2024 12:30 PM AMBULATORY - PSYCHIATRY [facility] Sep 12, 2024 06:00 PM AMBULATORY - PS[facility]IATRY [facility] Sep 17, 2024 06:00 PM AMBULATORY - PSYCHIATRY [facility] Sep 19, 2024 06:00 PM AMBULATORY - PSYCHIATRY [facility] Sep 26, 2024 06:00 PM AMBULATORY - PSYCHIATRY [facility] Oct 01, 2024 02:00 PM AMBULATORY - NONE [facility] Oct 09, 2024 03:00 PM AMBULATORY - MEDICINE [facility] Oct 16, 2024 01:00 PM AMBULATORY - PSYCHIATRY [facility] Oct 30, 2024 01:00 PM AMBULATORY - PSYCHIATRY [facility] Nov 27, 2024 01:00 PM AMBULATORY - PSYCHIATRY [facility] Dec 04, 2024 01:00 PM AMBULATORY - PSYCHIATRY [facility] Dec 11, 2024 01:00 PM AMBULATORY - PSYCHIATRY [facility] Dec 18, 2024 01:00 PM AMBULATORY - PSYCHIATRY [facility] Dec 25, 2024 01:00 PM AMBULATORY - PSYCHIATRY [facility] February 05, 2025 09:30 AM AMBULATORY - PSYCHIATRY [facility] Lab Results: +/- 30 days of the encounter This section includes the Chemistry and Hematology Lab Results on record with [place] for the patient. Radiology Reports and Pathology [...] Sep 02, 2024 08:27 PM Reporting Lab: [facility] [facility] [address] Performing Lab: [facility] [facility] [address] ETHANOL <10.0 mg/dL 0-9 AMPHET/METHAMPHETAMINE Negative ng/mL COCAINE METABOLITES Negative ng/mL BENZODIAZEPINES (STL) Negative ng/mL CANNABINOIDS POSITIVE ng/mL METHADONE Negative ng/mL OPIATES Negative ng/mL CREATININE URINE/OTHERS 110.1 mg/dL H 47.0 -110.0 OXYCODONE ([id number]) Negative ng/mL BUPRENORPHINE (STL-PB-MA) Negative ng/mL FENTANYL (STL-PB) Negative ng/mL Aug 25, 2024 02:03 PM [facility] URINE DRUG [...] 24, 2024 07:24 PM Reporting Lab: [facility] [address] [facility] [address] Performing Lab: [facility] [address] [facility] [address] ETHANOL Negative mg/dL 0-20 AMPHET/METHAMPHETAMINE Negative ng/mL COCAINE METABOLITES Negative ng/mL BENZODIAZEPINES (STL) Negative ng/mL CANNABINOIDS POSITIVE ng/mL METHADONE Negative ng/mL OPIATES Negative ng/mL CREATININE URINE/OTHERS 39.0 mg/dL L 47-11 0 OXYCODONE ([id number]) Negative ng/mL BUPRENORPHINE (STL-PB-MA) Negative ng/mL FENTANYL (STL-PB) Negative ng/mL Aug 20, 2024 07:13 AM [facility] URINALYSIS W/ CX REFLEX (STL-PB) URINE Specim en Type: URINE No comment entered. Ordering Provider: DANIEL GOMEZ Report Released Date/Time: Aug 19, 2024 11:04 AM Reporting Lab: [facility] [place] [address] Performing Lab: [facility] [address] [place] [address] URINE COLOR Yellow Yellow U.BILIRUBIN Negative mg/dL [...] PM Reporting Lab: [facility] [address] [place] [address] Performing Lab: [facility] [address] [place] [address] URINE COLOR Yellow Yellow U.BILIRUBIN Negative mg/dL [...] PM Reporting Lab: [facility] [facility] [address] Performing Lab: [facility] [facility] [address] Qualitative Test NEG NEGAT URBAN Aug 19, [...] PM Reporting Lab: [facility] [facility] [address] Performing Lab: [facility] [address] [facility] [address] ETHANOL Negative mg/dL 0-20 AMPHET/METHAMPHETAMINE Negative ng/mL COCAINE METABOLITES Negative ng/mL BENZODIAZEPINES (STL) Negative ng/mL CANNABINOIDS POSITIVE ng/mL METHADONE Negative ng/mL OPIATES POSITIVE ng/mL CREATININE URINE/OTHERS 266.1 mg/dL H 47.0 -110.0 OXYCODONE (RLUZI-CAS-EK) Negative ng/mL BUPRENORPHINE (STL-PB-MA) Negative ng/mL FENTANYL (STL-PB) Negative ng/mL Aug 19, 2024 10:00 AM [facility] CBC BLOOD Specimen Type: BLOOD No comment entered. Ordering Provider: DANIEL GOMEZ Report Released Date/Time: Aug 16, 2024 03:45 PM Reporting Lab: [facility] [facility] [address] Performing Lab: [facility] [address] [facility] [address] WBC 12.7 10*3/uL H 3.6-11.2 RBC 4.19 [...] PM Reporting Lab: [facility] [facility] [address] Performing Lab: [facility] [facility] [address] CREATININE 0.75 mg/dL 0.60-1.10 UREA NITROGEN 12.0 [...] 104.44 >60 Aug 19, 2024 09:59 AM [facility] PT/INR NEW (STL-MA) PLASMA Specimen Type: PLAS MA No comment entered. Ordering Provider: DANIEL GOMEZ Report Released Date/Time: Aug 16, 2024 03:45 PM Reporting Lab: [facility] [address] [place] [address] Performing Lab: [facility] [facility] [address] PROTIME 9.4 s 9.4-12.5 INR VALUE 0.8 {INR} Aug 19, 2024 09:59 AM [facility] ETHANOL SERUM/PLASMA (STL) PLASMA Specimen Typ e: PLASMA Comment: No hemolysis noted. Ordering Provider: DANIEL GOMEZ Report Released Date/Time: Aug 16, 2024 03:45 PM Reporting Lab: [facility] [facility] [address] Performing Lab: [facility] [facility] [address] ETHANOL SERUM/PLASMA (STL) <10.0 mg/dL 0 -10 Aug 19, 2024 09:59 AM [facility] GGT GAMMA-GT PLASMA Specimen Type: PLASM A No comment entered. Ordering Provider: DANIEL GOMEZ Report Released Date/Time: Aug 16, 2024 03:45 PM Reporting Lab: [facility] [address] [facility] [address] Performing Lab: [facility] [address] [facility] [address] GGT GAMMA-GT 14 [IU]/L 12-64 Aug 19, 2024 09:59 AM [facility] MAGNESIUM PLASMA Specimen Type: PLASM A Comment: No hemolysis noted. Ordering Provider: DANIEL GOMEZ Report Released Date/Time: Aug 16, 2024 03:45 PM Reporting Lab: [facility] [facility] [address] Performing Lab: [facility] [facility] [address] MAGNESIUM 2.1 mg/dL 1.6-2.6 Aug 19, 2024 09:59 AM [facility] CPK SERUM Specimen Type: SERUM No comment entered. Ordering Provider: DANIEL GOMEZ Report Released Date/Time: Aug 16, 2024 03:45 PM Reporting Lab: [facility] [facility] [address] Performing Lab: [facility] [address] [facility] [address] CPK 37 U/L 29-168 Aug 19, 2024 09:59 AM [facility] HEP C Ab HCV Ab (STL) SERUM Specimen Type: SE RUM No comment entered. Ordering Provider: DANIEL GOMEZ Report Released Date/Time: Aug 16, 2024 03:45 PM Reporting Lab: [facility] [address] [facility] [address] Performing Lab: [facility] [address] [facility] [address] HEP C Ab HCV Ab (STL) Nonreactive Nonrea ctive Aug 19, 2024 09:59 AM [facility] HIV COMBO FOURTH GENERATION (STL) SERUM Speci men Type: SERUM No comment entered. Ordering Provider: DANIEL GOMEZ Report Released Date/Time: Aug 16, 2024 03:45 PM Reporting Lab: [facility] [address] [facility] [address] Performing Lab: [facility] [address] [facility] [address] HIV COMBO FOURTH GENERATION (STL) Nonreactive Nonreactive Encounter Notes: All associated encounter notes This section contains the clinical notes associated to the Encounter. Date/Time Encounter Note(s) Provider Source Sep 06, 2024 09:00 PM PSYCHIATRY GROUP Alis VÁZQUEZ NOTE: LOCAL TITLE: [facility] GROUP NOTE STL STANDARD TITLE: PSYCHIATRY GROUP COUNSELING NOTE DATE OF NOTE: SEP 06, 2024@21:00 ENTRY DATE: SEP 06, 2024@21:49:29 AUTHOR: SHAHZAD AGUSTIN EXP COSIGNER: URGENCY: STATUS: COMPLETED Discipline: Nursing Group time: Group Topic: Wrap Up Group Group Content: [place] was one of Twenty-five about what they had learned and a positive aspect from [facility] treatment program. Two veterans new to the unit were welcomed by staff and peers. Random questions were answered. Unit rules were reiterated. All veterans were thanked for their courage in coming into the program and thanked for their service. The serenity prayer was said by those who wishing to participate, and snacks were given out. Group Goal: The goal of wrap up group is to emphasize improvements, share and reflect on the days events, and end the day on a positive note. Group Response: Actively engaged. Number of Patients attending Group: 25 Diagnosis: ESTELA /es/ SHAHZAD AGUSTIN RN REGISTERED NURSE Signed: 09/06/2024 21:59 SHAHZAD AGUSTIN [facility]
--- OUTSIDE RECORDS SUMMARY | 2025-02-23 10:58 | XMS_ITS | Encounter Summary ---
Author Name [facility] [facility] [place] [facility] [facility] [place] Address [address] [place] [address] Support Name Relationship Address Phone FUAD CHRISTINE Next of Kin Unknown CHRISTINE MERIDA Emergency Contact Unknown [phone] Insurance Providers: All historical and current Section [...] MEDIC AID Aug 02, 2015 MEDICAI D [id number] [phone] STACIE JENNIFER PATIENT [facility] (WNR) MEDICAID MEDIC AID [facility] (WNR) Dec 01, 2023 MEDICAI D [id number] JENNIFER QUINONES PATIENT Selected Encounter This section includes the information on record at [place] for the Encounter. Date/Time Encounter Type Encounter Description Reason Provider Source Sep 01, 2024 03:35 PM SELF-MGMT EDUC/TRAIN 5-8 PT SUBSTANCE USE DISORDR GRP ICD-10-CM F12.10 Cannabis abuse, uncomplicated STANLEYDAIN TRONCOSOER S IHE Encounter Template Text not used by [facility] Assessments - Encounter Diagnoses This section includes the primary and secondary diagnoses documented for the Encounter. Date/Time Primary/Secondary Diagnosis Diagnosis Name Provider Source Sep 01, 2024 03:46 PM PRIMARY Cannabis abuse, uncomplicated [facility] Plan of Treatment: Future Appointments (+ 6 months) and Future Tests (+/- 45 days) The Plan of Treatment section includes future care activities for the patient from all [place] [facility]. This section includes future appointments and future orders which are active, pending or scheduled. Future Appointments This section includes appointments that were scheduled to occur 6 months from the date of the Encounter, up to a maximum of 20 appointments. The data comes from all [place] treatment facilities. Appointment Date/Time Appointment Type Appointme nt Facility Name Sep 10, 2024 12:30 PM AMBULATORY - PSYCHIATRY [facility] Sep 12, 2024 06:00 PM AMBULATORY - PSYCHIATRY [facility] Sep 17, 2024 06:00 PM AMBULATORY - PSYCHIATRY [facility] Sep 19, 2024 06:00 PM AMBULATORY - PSYCHIATRY [facility] Sep 26, 2024 06:00 PM AMBULATORY - PSYCHIATRY [facility] Oct 01, 2024 02:00 PM AMBULATORY - NONE [facility] Oct 09, 2024 03:00 PM AMBULATORY - MEDICINE [facility] Oct 16, 2024 01:00 PM AMBULATORY - PSYCHIATRY [facility] Oct 30, 2024 01:00 PM AMBULATORY - PSYCHIATRY [facility] Nov 27, 2024 01:00 PM AMBULATORY - PSYCHIATRY [facility] Dec 04, 2024 01:00 PM AMBULATORY - PSYCHIATRY [facility] Dec 11, 2024 01:00 PM AMBULATORY - PSYCHIATRY [facility] Dec 18, 2024 01:00 PM AMBULATORY - PSYCHIATRY [facility] Dec 25, 2024 01:00 PM AMBULATORY - PSYCHIATRY [facility] February 05, 2025 09:30 AM AMBULATORY - PSYCHIATRY [facility] Lab Results: +/- [...] Type Comment Sep 03, 2024 12:00 PM [facility] URINE DRUG SCREEN (STL) URINE Specimen Type: URINE Comment: The cut-off value for Fentanyl was laboratory developed and its performance characteristics confirmed by the [facility] laboratory thru method comparison with reference laboratory and medication chart review. The laboratory is regulated under CLIA as qualified to perform high-complexity testing. Fentanyl is used for clinical purposes in conjunction with other laboratory tests. Ordering Provider: DANIEL GOMEZ Report Released Date/Time: Sep 02, 2024 08:27 PM Reporting Lab: [facility] [facility] [address] Performing Lab: [facility] [id number] ETHANOL <10.0 mg/dL 0-9 AMPHET/METHAMPHETAMINE Negative ng/mL COCAINE METABOLITES Negative ng/mL BENZODIAZEPINES (STL) Negative ng/mL CANNABINOIDS POSITIVE ng/mL METHADONE Negative ng/mL OPIATES Negative ng/mL CREATININE URINE/OTHERS 110.1 mg/dL H 47.0 -110.0 OXYCODONE (OFRAV-ZTS-II) Negative ng/mL BUPRENORPHINE (STL-PB-MA) Negative ng/mL FENTANYL (STL-PB) Negative ng/mL Aug 25, 2024 02:03 PM [facility] URINE DRUG SCREEN (STL) URINE Specimen Type: URINE Comment: The cut-off value for Fentanyl was laboratory developed and its performance characteristics confirmed by the [facility] laboratory thru method comparison with reference laboratory and medication chart review. The laboratory is regulated under CLIA as qualified to perform high-complexity testing. Fentanyl is used for clinical purposes in conjunction with other laboratory tests. Ordering Provider: DANIEL GOMEZ Report Released Date/Time: Aug 24, 2024 07:24 PM Reporting Lab: [facility] [address] [address] Performing Lab: [facility] [address] [facility] [address] ETHANOL Negative mg/dL 0-20 AMPHET/METHAMPHETAMINE Negative ng/mL COCAINE METABOLITES Negative ng/mL BENZODIAZEPINES (STL) Negative ng/mL CANNABINOIDS POSITIVE ng/mL METHADONE Negative ng/mL OPIATES Negative ng/mL CREATININE URINE/OTHERS 39.0 mg/dL L 47-11 0 OXYCODONE (VFPOR-EUM-EI) Negative ng/mL BUPRENORPHINE (STL-PB-MA) Negative ng/mL FENTANYL (STL-PB) Negative ng/mL Aug 20, 2024 07:13 AM [facility] URINALYSIS W/ CX REFLEX (STL-PB) URINE Specim en Type: URINE No comment entered. Ordering Provider: DANIEL GOMEZ Report Released Date/Time: Aug 19, 2024 11:04 AM Reporting Lab: [facility] [place] [address] Performing Lab: [facility] [place] [address] URINE COLOR Yellow Yellow U.BILIRUBIN Negative mg/dL [...] 1.028 Aug 19, 2024 10:08 AM [facility] URINALYSIS (STL-PB) URINE Specimen Type: URIN E No comment entered. Ordering Provider: DANIEL GOMEZ Report Released Date/Time: Aug 16, 2024 03:45 PM Reporting Lab: [facility] [facility] [address] Performing Lab: [facility] [address] [place] [address] URINE COLOR Yellow Yellow U.BILIRUBIN Negative mg/dL [...] 1.035 H Aug 19, 2024 10:08 AM [facility] TEST URINE (MA-STL) URINE Specimen Type: URINE No comment entered. Ordering Provider: DANIEL GOMEZ Report Released Date/Time: Aug 16, 2024 03:45 PM Reporting Lab: [facility] [facility] [phone] Performing Lab: [facility] [facility] [address] Qualitative Test NEG NEGAT URBAN Aug 19, 2024 10:08 AM [facility] URINE DRUG SCREEN (STL) URINE Specimen Type: URINE Comment: The cut-off value for Fentanyl was laboratory developed and its performance characteristics confirmed by the [facility] laboratory thru method comparison with reference laboratory and medication chart review. The laboratory is regulated under CLIA as qualified to perform high-complexity testing. Fentanyl is used for clinical purposes in conjunction with other laboratory tests. Ordering Provider: DANIEL GOMEZ Report Released Date/Time: Aug 16, 2024 03:45 PM Reporting Lab: [facility] [facility] [address] Performing Lab: [facility] [facility] [address] ETHANOL Negative mg/dL 0-20 AMPHET/METHAMPHETAMINE Negative ng/mL COCAINE METABOLITES Negative ng/mL BENZODIAZEPINES (STL) Negative ng/mL CANNABINOIDS POSITIVE ng/mL METHADONE Negative ng/mL OPIATES POSITIVE ng/mL CREATININE URINE/OTHERS 266.1 mg/dL H 47.0 -110.0 OXYCODONE (AHANE-QON-NW) Negative ng/mL BUPRENORPHINE (STL-PB-MA) Negative ng/mL FENTANYL (STL-PB) Negative ng/mL Aug 19, 2024 10:00 AM [facility] CBC BLOOD Specimen Type: BLOOD No comment entered. Ordering Provider: DANIEL GOMEZ Report Released Date/Time: Aug 16, 2024 03:45 PM Reporting Lab: [facility] [facility] [address] Performing Lab: [facility] [facility] [address] WBC 12.7 10*3/uL H 3.6-11.2 RBC 4.19 [...] 20 Aug 19, 2024 09:59 AM [facility] PT/INR NEW (L-MA) PLASMA Specimen Type: PLAS MA No comment entered. Ordering Provider: DANIEL GOMEZ Report Released Date/Time: Aug 16, 2024 03:45 PM Reporting Lab: [facility] [facility] [address] Performing Lab: [facility] [facility] [address] PROTIME 9.4 s 9.4-12.5 INR VALUE 0.8 {INR} Aug 19, 2024 09:59 AM [facility] COMPREHENSIVE METABOLIC PANEL PLASMA Specimen Type: PLASMA Comment: No hemolysis noted. Ordering Provider: DANIEL GOMEZ Report Released Date/Time: Aug 16, 2024 03:45 PM Reporting Lab: [facility] [place] [address] Performing Lab: [facility] [address] [place] [address] CREATININE 0.75 mg/dL 0.60-1.10 UREA NITROGEN 12.0 [...] 104.44 >60 Aug 19, 2024 09:59 AM [facility] ETHANOL SERUM/PLASMA (STL) PLASMA Specimen Typ e: PLASMA Comment: No hemolysis noted. Ordering Provider: DANIEL GOMEZ Report Released Date/Time: Aug 16, 2024 03:45 PM Reporting Lab: [facility] [place] [address] Performing Lab: [facility] [place] [address] ETHANOL SERUM/PLASMA (STL) <10.0 mg/dL 0 -10 Aug 19, 2024 09:59 AM [facility] GGT GAMMA-GT PLASMA Specimen Type: PLASM A No comment entered. Ordering Provider: DANIEL GOMEZ Report Released Date/Time: Aug 16, 2024 03:45 PM Reporting Lab: [facility] [address] [address] Performing Lab: [facility] [address] [facility] [address] GGT GAMMA-GT 14 [IU]/L 12-64 Aug 19, 2024 09:59 AM [facility] MAGNESIUM PLASMA Specimen Type: PLASM A Comment: No hemolysis noted. Ordering Provider: DANIEL GOMEZ Report Released Date/Time: Aug 16, 2024 03:45 PM Reporting Lab: [facility] [facility] [address] Performing Lab: [facility] [facility] [address] MAGNESIUM 2.1 mg/dL 1.6-2.6 Aug 19, 2024 09:59 AM [facility] CPK SERUM Specimen Type: SERUM No comment entered. Ordering Provider: DANIEL GOMEZ Report Released Date/Time: Aug 16, 2024 03:45 PM Reporting Lab: [facility] [facility] [address] Performing Lab: [facility] [facility] [address] CPK 37 U/L 29-168 Aug 19, 2024 09:59 AM [facility] HEP C Ab HCV Ab (STL) SERUM Specimen Type: SE RUM No comment entered. Ordering Provider: DANIEL GOMEZ Report Released Date/Time: Aug 16, 2024 03:45 PM Reporting Lab: [facility] [address] [facility] [address] Performing Lab: [facility] [address] [facility] [address] HEP C Ab HCV Ab (STL) Nonreactive Nonrea ctive Aug 19, 2024 09:59 AM [facility] HIV COMBO FOURTH GENERATION (STL) SERUM Speci men Type: SERUM No comment entered. Ordering Provider: DANIEL GOMEZ Report Released Date/Time: Aug 16, 2024 03:45 PM Reporting Lab: [facility] [address] [facility] [address] Performing Lab: [facility] [address] [facility] [address] HIV COMBO FOURTH GENERATION (STL) Nonreactive Nonreactive Encounter Notes: All associated encounter notes This section contains the clinical notes associated to the Encounter. Date/Time Encounter Note(s) Provider Source Sep 01, 2024 07:45 AM PSYCHIATRY GROUP COUNSELING NOTE: LOCAL TITLE: [facility]YCHI[facility]RY GROUP NOTE STL STANDARD TITLE: PSYCHIATRY GROUP COUNSELING NOTE DATE OF NOTE: SEP 01, 2024@07:45 ENTRY DATE: SEP 01, 2024@15:41:09 AUTHOR: STEPHANIE STANLEY COSIGNER: URGENCY: STATUS: COMPLETED PATIENT DIAGNOSIS: Substance Abuse DISCIPLINE/SERVICE(S) PROVIDING GROUP: Nursing GROUP TIME: PATIENT PROBLEM ADDRESSED IN THIS GROUP: Substance Abuse GROUP TOPIC(S): Substance Abuse GROUP CONTENT: THE TOPIC OF TONIGHTS GROUP WAS THE IMPORTANCE OF UNIT SAFETY AND HIPPA COMPLIANCE. EXAMPLES GIVEN WERE THE IMPORTANCE OF KEEEPING THE UNIT DOORS CLOSED AT ALL TIMES, NEVER ACKNOWLEDGING THE PRESENCE OF SOMEONE ON THE UNIT AND TO JUST GET STAFF TO ASSIST PEOPLE ASKING FOR SOMEONE. EXAMPLES OF CLOSE CALLS FROM THE PAST WERE ALSO GIVEN TO PROVE THE IMPORTANCE OF ADHERING TO THESE RULES GROUP GOALS: achieved PATIENT RESPONSE: Active Participated meaningfully Number of patients in group: / STEPHANIE STANLEY Registered NurseTHANH 51E Signed: 09/01/2024 15:50 STEPHANIE STANLEY [facility] THANH
--- OUTSIDE RECORDS SUMMARY | 2025-02-23 10:58 | XMS_ITS | Encounter Summary ---
Author Name [facility] [facility] [place] [facility] [place] [facility] [place] Address [address] [place] [address] Support Name Relationship Address Phone FUAD CHRISTINE [...] MEDIC AID Aug 02, 2015 MEDICAI D [id number] [phone] STACIE AYEJENNIFER PATIENT [facility] (WNR) MEDICAID MEDIC AID [facility] (WNR) Dec 01, 2023 MEDICAI D [id number] STACIE JENNIFER PATIENT Selected Encounter This section includes the information on record at [place] for the Encounter. Date/Time Encounter Type Encounter Description Reason Provider Source Sep 05, 2024 09:00 PM SELF-MGMT EDUC/TRAIN 5-8 PT SUBSTANCE USE DISORDR GRP ICD-10-CM F11.90 Opioid use, unspecified, uncomplicated JOSÉ AGUSTIN E Encounter Template Text not used by [place] Assessments - Encounter Diagnoses This section includes the primary and secondary diagnoses documented for the Encounter. Date/Time Primary/Secondary Diagnosis Diagnosis Name Provider Source Sep 05, 2024 11:25 PM PRIMARY Opioid use, unspecified, uncomplicated PANTERA AGUSTIN [facility] Plan of Treatment: Future Appointments (+ 6 months) and Future Tests (+/- 45 days) The Plan of Treatment section includes future care activities for the patient from all [place] [facility]. This section includes future appointments and future orders which are active, pending or scheduled. Future Appointments This section includes appointments that were scheduled to occur 6 months from the date of the Encounter, up to a maximum of 20 appointments. The data comes from all [place] treatment [facility]. Appointment Date/Time Appointment Type Appointme nt Facility Name Sep 10, 2024 12:30 PM AMBULATORY - PSYCHIATRY [facility] Sep 12, 2024 06:00 PM AMBULATORY - PSYCHIATRY [facility] Sep 17, 2024 06:00 PM AMBULATORY - PSYCHIATRY [facility] Sep 19, 2024 06:00 PM AMBULATORY - PSYCHIATRY [facility] Sep 26, 2024 06:00 PM AMBULATORY - PSYCHIATRY [facility] Oct 01, 2024 02:00 PM AMBULATORY - NONE [facility] Oct 09, 2024 03:00 PM AMBULATORY - MEDICINE [facility] Oct 16, 2024 01:00 PM AMBULATORY - PSYCHIATRY [facility] Oct 30, 2024 01:00 PM AMBULATORY - PSYCHIATRY [facility] Nov 27, 2024 01:00 PM AMBULATORY - PSYCHIATRY [facility] Dec 04, 2024 01:00 PM AMBULATORY - PSYCHIATRY [facility] Dec 11, 2024 01:00 PM AMBULATORY - PSYCHIATRY [facility] Dec 18, 2024 01:00 PM AMBULATORY - PSYCHIATRY [facility] Dec 25, 2024 01:00 PM AMBULATORY - PSYCHIATRY [facility] February 05, 2025 09:30 AM AMBULATORY - PSYCHIATRY [facility] Lab Results: +/- 30 days [...] Type Comment Sep 03, 2024 12:00 PM [facility] URINE DRUG SCREEN (STL) URINE Specimen Type: URINE Comment: The cut-off value for Fentanyl was laboratory developed and its performance characteristics confirmed by the [facility] laboratory thru method comparison with reference laboratory and medication chart review. The laboratory is regulated under CLIA as qualified to perform high-complexity testing. Fentanyl is used for clinical purposes in conjunction with other laboratory tests. Ordering Provider: DANIEL GOMEZ Report Released Date/Time: Sep 02, 2024 08:27 PM Reporting Lab: [facility] [phone] Performing Lab: [facility] [phone] ETHANOL <10.0 mg/dL 0-9 AMPHET/METHAMPHETAMINE Negative ng/mL COCAINE METABOLITES Negative ng/mL BENZODIAZEPINES (STL) Negative ng/mL CANNABINOIDS POSITIVE ng/mL METHADONE Negative ng/mL OPIATES Negative ng/mL CREATININE URINE/OTHERS 110.1 mg/dL H 47.0 -110.0 OXYCODONE ([id number]) Negative ng/mL BUPRENORPHINE (STL-PB-MA) Negative ng/mL FENTANYL (STL-PB) Negative ng/mL Aug 25, 2024 02:03 PM [facility] URINE DRUG SCREEN (STL) URINE Specimen Type: URINE Comment: The cut-off value for Fentanyl was laboratory developed and its performance characteristics confirmed by the [facility] laboratory thru method comparison with reference laboratory and medication chart review. The laboratory is regulated under CLIA as qualified to perform high-complexity testing. Fentanyl is used for clinical purposes in conjunction with other laboratory tests. Ordering Provider: DANIEL GOMEZ Report Released Date/Time: Aug 24, 2024 07:24 PM Reporting Lab: [facility] [address] [facility] [phone] Performing Lab: [facility] [address] [facility] [phone] ETHANOL Negative mg/dL 0-20 AMPHET/METHAMPHETAMINE Negative ng/mL COCAINE METABOLITES Negative ng/mL BENZODIAZEPINES (STL) Negative ng/mL CANNABINOIDS POSITIVE ng/mL METHADONE Negative ng/mL OPIATES Negative ng/mL CREATININE URINE/OTHERS 39.0 mg/dL L 47-11 0 OXYCODONE ([id number]) Negative ng/mL BUPRENORPHINE (STL-PB-MA) Negative ng/mL FENTANYL (STL-PB) Negative ng/mL Aug 20, 2024 07:13 AM [facility] URINALYSIS W/ CX REFLEX (STL-PB) URINE Specim en Type: URINE No comment entered. Ordering Provider: DANIEL GOMEZ Report Released Date/Time: Aug 19, 2024 11:04 AM Reporting Lab: [facility] [phone] Performing Lab: [facility] [place] [address] URINE COLOR Yellow Yellow U.BILIRUBIN Negative mg/dL [...] GRAVITY 1.028 Aug 19, 2024 10:08 AM [facility] URINALYSIS (STL-PB) URINE Specimen Type: URIN E No comment entered. Ordering Provider: DANIEL GOMEZ Report Released Date/Time: Aug 16, 2024 03:45 PM Reporting Lab: [facility] [phone] Performing Lab: [facility] [place] [address] URINE COLOR Yellow Yellow U.BILIRUBIN Negative mg/dL [...] 1.035 H Aug 19, 2024 10:08 AM [facility] TEST URINE (MA-STL) URINE Specimen Type: URINE No comment entered. Ordering Provider: DANIEL GOMEZ Report Released Date/Time: Aug 16, 2024 03:45 PM Reporting Lab: [facility] [phone] Performing Lab: [facility] [address] [facility] [phone] Qualitative Test NEG NEGAT URBAN Aug 19, 2024 10:08 AM [facility] URINE DRUG SCREEN (STL) URINE Specimen Type: URINE Comment: The cut-off value for Fentanyl was laboratory developed and its performance characteristics confirmed by the [facility] laboratory thru method comparison with reference laboratory and medication chart review. The laboratory is regulated under CLIA as qualified to perform high-complexity testing. Fentanyl is used for clinical purposes in conjunction with other laboratory tests. Ordering Provider: DANIEL GOMEZ Report Released Date/Time: Aug 16, 2024 03:45 PM Reporting Lab: [facility] [phone] Performing Lab: [facility] [phone] ETHANOL Negative mg/dL 0-20 AMPHET/METHAMPHETAMINE Negative ng/mL COCAINE METABOLITES Negative ng/mL BENZODIAZEPINES (STL) Negative ng/mL CANNABINOIDS POSITIVE ng/mL METHADONE Negative ng/mL OPIATES POSITIVE ng/mL CREATININE URINE/OTHERS 266.1 mg/dL H 47.0 -110.0 OXYCODONE (HPQNP-HRJ-GP) Negative ng/mL BUPRENORPHINE (STL-PB-MA) Negative ng/mL FENTANYL (STL-PB) Negative ng/mL Aug 19, 2024 10:00 AM [facility] CBC BLOOD Specimen Type: BLOOD No comment entered. Ordering Provider: DANIEL GOMEZ Report Released Date/Time: Aug 16, 2024 03:45 PM Reporting Lab: [facility] [phone] Performing Lab: [facility] [place] [phone] WBC 12.7 10*3/uL H 3.6-11.2 RBC 4.19 [...] 0.00-0. 20 Aug 19, 2024 09:59 AM [facility] COMPREHENSIVE METABOLIC PANEL PLASMA Specimen Type: PLASMA Comment: No hemolysis noted. Ordering Provider: DANIEL GOMEZ Report Released Date/Time: Aug 16, 2024 03:45 PM Reporting Lab: [facility] [phone] Performing Lab: [facility] [place] [phone] CREATININE 0.75 mg/dL 0.60-1.10 UREA NITROGEN 12.0 [...] 104.44 >60 Aug 19, 2024 09:59 AM [facility] PT/INR NEW (STL-MA) PLASMA Specimen Type: PLAS MA No comment entered. Ordering Provider: DANIEL GOMEZ Report Released Date/Time: Aug 16, 2024 03:45 PM Reporting Lab: [facility] [place] [address] Performing Lab: [facility] [place] [address] PROTIME 9.4 s 9.4-12.5 INR VALUE 0.8 {INR} Aug 19, 2024 09:59 AM [facility] ETHANOL SERUM/PLASMA (STL) PLASMA Specimen Typ e: PLASMA Comment: No hemolysis noted. Ordering Provider: DANIEL GOMEZ Report Released Date/Time: Aug 16, 2024 03:45 PM Reporting Lab: [facility] [phone] Performing Lab: [facility] [phone] ETHANOL SERUM/PLASMA (STL) <10.0 mg/dL 0 -10 Aug 19, 2024 09:59 AM [facility] GGT GAMMA-GT PLASMA Specimen Type: PLASM A No comment entered. Ordering Provider: DANIEL GOMEZ Report Released Date/Time: Aug 16, 2024 03:45 PM Reporting Lab: [facility] [address] [facility] [phone] Performing Lab: [facility] [address] [facility] [phone] GGT GAMMA-GT 14 [IU]/L 12-64 Aug 19, 2024 09:59 AM [facility] MAGNESIUM PLASMA Specimen Type: PLASM A Comment: No hemolysis noted. Ordering Provider: DANIEL GOMEZ Report Released Date/Time: Aug 16, 2024 03:45 PM Reporting Lab: [facility] [phone] Performing Lab: [facility] [phone] MAGNESIUM 2.1 mg/dL 1.6-2.6 Aug 19, 2024 09:59 AM [facility] CPK SERUM Specimen Type: SERUM No comment entered. Ordering Provider: DANIEL GOMEZ Report Released Date/Time: Aug 16, 2024 03:45 PM Reporting Lab: [facility] [phone] Performing Lab: [facility] [phone] CPK 37 U/L 29-168 Aug 19, 2024 09:59 AM [facility] HEP C Ab HCV Ab (STL) SERUM Specimen Type: SE RUM No comment entered. Ordering Provider: DANIEL GOMEZ Report Released Date/Time: Aug 16, 2024 03:45 PM Reporting Lab: [facility] [address] [facility] [address] Performing Lab: [facility] [address] [facility] [phone] HEP C Ab HCV Ab (STL) Nonreactive Nonrea ctive Aug 19, 2024 09:59 AM [facility] HIV COMBO FOURTH GENERATION (STL) SERUM Speci men Type: SERUM No comment entered. Ordering Provider: DANIEL GOMEZ Report Released Date/Time: Aug 16, 2024 03:45 PM Reporting Lab: [facility] [address] [facility] [address] Performing Lab: [facility] [address] [facility] [phone] HIV COMBO FOURTH GENERATION (STL) Nonreactive Nonreactive Encounter Notes: All associated encounter notes This section contains the clinical notes associated to the Encounter. Date/Time Encounter Note(s) Provider Source Sep 05, 2024 09:00 PM PSYCHIATRY GROUP C GURPREET NOTE: LOCAL TITLE: [facility] PSYCHIATRY GROUP NOTE STL STANDARD TITLE: PSYCHIATRY GROUP COUNSELING NOTE DATE OF NOTE: SEP 05, 2024@21:00 ENTRY DATE: SEP 05, 2024@23:14:40 AUTHOR: SHAHZAD AGUSTIN EXP COSIGNER: URGENCY: STATUS: COMPLETED Discipline: Nursing Group time: Group Topic: Wrap Up Group Group Content: was one of Twenty-four who attended this [facility] wrap up group. All veterans were encouraged to talk about what they had learned and a positive aspect from [facility] treatment program. Three veterans new to the unit was welcomed by staff and peers. One veterans being discharged tomorrow was thanked for coming to the program. Random questions were answered. Unit rules were [...] Actively engaged. Number of Patients attending Group: 24 Diagnosis: ESTELA /es/ SHAHZAD AGUSTIN RN REGISTERED NURSE Signed: 09/05/2024 23:29 SHAHZAD AGUSTIN
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
--- OUTSIDE RECORDS SUMMARY | 2025-02-23 10:58 | XMS_ITS | Encounter Summary ---
Author Name [facility] [place] [place] Organization [facility] [place] [facility] [place] Address [address] [place] [address] Support Name Relationship Address Phone FUAD CHRISTINE [...] MEDIC AID Aug 02, 2015 MEDICAI D [id number] [phone] JENNIFER QUINONES PATIENT [facility] (WNR) MEDICAID MEDIC AID [facility] (WNR) Dec 01, 2023 MEDICAI D [id number] JENNIFER QUINONES PATIENT Selected Encounter This section includes the information on record at [place] for the Encounter. Date/Time Encounter Type Encounter Description Reason Provider Source Aug 23, 2024 10:15 AM SELF-HELP/PEER SVC PER 15MIN RRTP GROUP ICD-10-CM F12.20 Cannabis dependence, uncomplicated AL SHERIFF E Encounter Template Text not used by [place] Assessments - Encounter Diagnoses This section includes the primary and secondary diagnoses documented for the Encounter. Date/Time Primary/Secondary Diagnosis Diagnosis Name Provider Source Aug 23, 2024 11:24 AM PRIMARY Cannabis dependence, uncomplicated CHERRY SHERIFF [facility] Plan of Treatment: Future Appointments (+ 6 months) and Future Tests (+/- 45 days) The Plan of Treatment section includes future care activities for the patient [facility] [place] [facility] This section includes future appointments and future orders which are active, pending or scheduled. Future Appointments This section includes appointments that were scheduled to occur 6 months from the date of the Encounter, up to a maximum of 20 appointments. The data comes from all [place] treatment facilities. Appointment Date/Time Appointment Type Appointme nt Facility Name Sep 10, 2024 12:30 PM AMBULATORY - PSYCHIATRY [facility] Sep 12, 2024 06:00 PM AMBULATORY - PSYCHIATRY [facility] Sep 17, 2024 06:00 PM AMBULATORY - PSYCHIATRY [facility] Sep 19, 2024 06:00 PM AMBULATORY - PSYCHIATRY [facility] Sep 26, 2024 06:00 PM AMBULATORY - PSYCHIATRY [facility] Oct 01, 2024 02:00 PM AMBULATORY - NONE [facility] Oct 09, 2024 03:00 PM AMBULATORY - MEDICINE [facility] Oct 16, 2024 01:00 PM AMBULATORY - PSYCHIATRY [facility] Oct 30, 2024 01:00 PM AMBULATORY - PSYCHIATRY [facility] Nov 27, 2024 01:00 PM AMBULATORY - PSYCHIATRY [facility] Dec 04, 2024 01:00 PM AMBULATORY - PSYCHIATRY [facility] Dec 11, 2024 01:00 PM AMBULATORY - PSYCHIATRY [facility] Dec 18, 2024 01:00 PM AMBULATORY - PSYCHIATRY [facility] Dec 25, 2024 01:00 PM AMBULATORY - PSYCHIATRY [facility] February 05, 2025 09:30 AM AMBULATORY - PSYCHIATRY [facility] Lab Results: +/- 30 days of the encounter This section includes the Chemistry and Hematology Lab Results on record with [place] for the patient. Radiology Reports and Pathology Reports are provided separately, in subsequent sections. Lab Results This section contains the Chemistry/Hematology Results that were resulted 30 days before or 30 daysafter the date of the Encounter. Date/Time Source Result Type Result - Unit Interpretation Reference Range Specimen Type Comment Sep 03, 2024 12:00 PM [facility] URINE DRUG SCREEN (STL) URINE Specimen Type: URINE Comment: The cut-off value for Fentanyl was laboratory developed and its performance characteristics confirmed by the [facility] laboratory thru method comparison with reference laboratory and medication chart review. The laboratory is regulated under CLIA as qualified to perform high-complexity testing. Fentanyl is used for clinical purposes in conjunction with other laboratory tests. Ordering Provider: DANIEL GOMEZ Report Released Date/Time: Sep 02, 2024 08:27 PM Reporting Lab: [facility] [facility] [address] Performing Lab: [facility] [address] ETHANOL <10.0 mg/dL 0-9 AMPHET/METHAMPHETAMINE Negative ng/mL COCAINE METABOLITES Negative ng/mL BENZODIAZEPINES (STL) Negative ng/mL CANNABINOIDS POSITIVE ng/mL METHADONE Negative ng/mL OPIATES Negative ng/mL CREATININE URINE/OTHERS 110.1 mg/dL H 47.0 -110.0 OXYCODONE ([id number]) Negative ng/mL BUPRENORPHINE (STL-PB-MA) Negative ng/mL FENTANYL (STL-PB) Negative ng/mL Aug 25, 2024 02:03 PM [facility] URINE DRUG SCREEN (STL) URINE Specimen Type: URINE Comment: The cut-off value for Fentanyl was laboratory developed and its performance characteristics confirmed by the [facility] laboratory thru method comparison with reference laboratory and medication chart review. The laboratory is regulated under CLIA as qualified to perform high-complexity testing. Fentanyl is used for clinical purposes in conjunction with other laboratory tests. Ordering Provider: DANIEL GOMEZ Report Released Date/Time: Aug 24, 2024 07:24 PM Reporting Lab: [facility] [address] [facility] [address] Performing Lab: [facility] [address] [facility] [address] ETHANOL Negative mg/dL 0-20 AMPHET/METHAMPHETAMINE Negative ng/mL COCAINE METABOLITES Negative ng/mL BENZODIAZEPINES (STL) Negative ng/mL CANNABINOIDS POSITIVE ng/mL METHADONE Negative ng/mL OPIATES Negative ng/mL CREATININE URINE/OTHERS 39.0 mg/dL L 47-11 0 OXYCODONE ([id number]) Negative ng/mL BUPRENORPHINE (STL-PB-MA) Negative ng/mL FENTANYL (STL-PB) Negative ng/mL Aug 20, 2024 07:13 AM [facility] URINALYSIS W/ CX REFLEX (STL-PB) URINE Specim en Type: URINE No comment entered. Ordering Provider: DANIEL GOMEZ Report Released Date/Time: Aug 19, 2024 11:04 AM Reporting Lab: [facility] [place] [address] Performing Lab: [facility] [place] [address] URINE COLOR Yellow Yellow U.BILIRUBIN Negative mg/dL [...] GRAVITY 1.028 Aug 19, 2024 10:08 AM [facility] URINALYSIS (STL-PB) URINE Specimen Type: URIN E No comment entered. Ordering Provider: DANIEL GOMEZ Report Released Date/Time: Aug 16, 2024 03:45 PM Reporting Lab: [facility] [place] [address] Performing Lab: [facility] [place] [address] URINE COLOR Yellow Yellow U.BILIRUBIN Negative mg/dL [...] 1.035 H Aug 19, 2024 10:08 AM [facility] TEST URINE (MA-STL) URINE Specimen Type: URINE No comment entered. Ordering Provider: DANIEL GOMEZ Report Released Date/Time: Aug 16, 2024 03:45 PM Reporting Lab: [facility] [address] Performing Lab: [facility] [facility] [address] Qualitative Test NEG NEGAT URBAN Aug 19, 2024 10:08 AM [facility] URINE DRUG SCREEN (STL) URINE Specimen Type: URINE Comment: The cut-off value for Fentanyl was laboratory developed and its performance characteristics confirmed by the [facility] laboratory thru method comparison with reference laboratory and medication chart review. The laboratory is regulated under CLIA as qualified to perform high-complexity testing. Fentanyl is used for clinical purposes in conjunction with other laboratory tests. Ordering Provider: DANIEL GOMEZ Report Released Date/Time: Aug 16, 2024 03:45 PM Reporting Lab: [facility] [address] Performing Lab: [facility] [facility] [address] ETHANOL Negative mg/dL 0-20 AMPHET/METHAMPHETAMINE Negative ng/mL COCAINE METABOLITES Negative ng/mL BENZODIAZEPINES (STL) Negative ng/mL CANNABINOIDS POSITIVE ng/mL METHADONE Negative ng/mL OPIATES POSITIVE ng/mL CREATININE URINE/OTHERS 266.1 mg/dL H 47.0 -110.0 OXYCODONE ([id number]) Negative ng/mL BUPRENORPHINE (STL-PB-MA) Negative ng/mL FENTANYL (STL-PB) Negative ng/mL Aug 19, 2024 10:00 AM [facility] CBC BLOOD Specimen Type: BLOOD No comment entered. Ordering Provider: DANIEL GOMEZ Report Released Date/Time: Aug 16, 2024 03:45 PM Reporting Lab: [facility] [address] Performing Lab: [facility] [facility] [address] WBC 12.7 10*3/uL H 3.6-11.2 RBC 4.19 [...] 0.00-0. 20 Aug 19, 2024 09:59 AM [facility] COMPREHENSIVE METABOLIC PANEL PLASMA Specimen Type: PLASMA Comment: No hemolysis noted. Ordering Provider: DANIEL GOMEZ Report Released Date/Time: Aug 16, 2024 03:45 PM Reporting Lab: [facility] [facility] [address] Performing Lab: [facility] [facility] [address] CREATININE 0.75 mg/dL 0.60-1.10 UREA NITROGEN 12.0 [...] 104.44 >60 Aug 19, 2024 09:59 AM [facility] PT/INR NEW (STL-MA) PLASMA Specimen Type: PLAS MA No comment entered. Ordering Provider: DANIEL GOMEZ Report Released Date/Time: Aug 16, 2024 03:45 PM Reporting Lab: [facility] [place] [address] Performing Lab: [facility] [facility] [address] PROTIME 9.4 s 9.4-12.5 INR VALUE 0.8 {INR} Aug 19, 2024 09:59 AM [facility] ETHANOL SERUM/PLASMA (STL) PLASMA Specimen Typ e: PLASMA Comment: No hemolysis noted. Ordering Provider: DANIEL GOMEZ Report Released Date/Time: Aug 16, 2024 03:45 PM Reporting Lab: [facility] [address] Performing Lab: [facility] [address] ETHANOL SERUM/PLASMA (STL) <10.0 mg/dL 0 -10 Aug 19, 2024 09:59 AM [facility] GGT GAMMA-GT PLASMA Specimen Type: PLASM A No comment entered. Ordering Provider: DANIEL GOMEZ Report Released Date/Time: Aug 16, 2024 03:45 PM Reporting Lab: [facility] [address] [facility] [address] Performing Lab: [facility] [address] [facility] [address] GGT GAMMA-GT 14 [IU]/L 12-64 Aug 19, 2024 09:59 AM [facility] MAGNESIUM PLASMA Specimen Type: PLASM A Comment: No hemolysis noted. Ordering Provider: DANIEL GOMEZ Report Released Date/Time: Aug 16, 2024 03:45 PM Reporting Lab: [facility] [facility] [address] Performing Lab: [facility] [facility] [address] MAGNESIUM 2.1 mg/dL 1.6-2.6 Aug 19, 2024 09:59 AM [facility] CPK SERUM Specimen Type: SERUM No comment entered. Ordering Provider: DANIEL GOMEZ Report Released Date/Time: Aug 16, 2024 03:45 PM Reporting Lab: [facility] [facility] [address] Performing Lab: [facility] [facility] [address] CPK 37 U/L 29-168 Aug 19, 2024 09:59 AM [facility] HEP C Ab HCV Ab (STL) SERUM Specimen Type: SE RUM No comment entered. Ordering Provider: DANIEL GOMEZ Report Released Date/Time: Aug 16, 2024 03:45 PM Reporting Lab: [facility] [address] [facility] [address] Performing Lab: [facility] [address] [facility] [address] HEP C Ab HCV Ab (STL) Nonreactive Nonrea ctive Aug 19, 2024 09:59 AM [facility] HIV COMBO FOURTH GENERATION (STL) SERUM Speci men Type: SERUM No comment entered. Ordering Provider: DANIEL GOMEZ Report Released Date/Time: Aug 16, 2024 03:45 PM Reporting Lab: [facility] [address] [facility] [address] Performing Lab: [facility] [address] [facility] [address] HIV COMBO FOURTH GENERATION (STL) Nonreactive Nonreactive Social History: Smoking Status (Most current) and Tobacco Use (All prior to encounter date) This section includes the most current, and the historical, smoking and tobacco- related health factors from the [facility] where the Encounter took place. Current Smoking Status This section includes the most current smoking, or tobacco-related health factor, from the [place] facility where the Encounter took place. Date/Time Current Smoking Status Comment Facil ity Aug 19, 2024 10:33 AM VA-TOBACCO USE ALFONZO RY DAY CIGARETTES [facility] Tobacco Use History This section includes a history of the smoking, or tobacco-related health factors, that were collected on or before the date of the Encounter. The data comes from the [place] facility where the Encounter took place. 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 Date/Time Encounter Note(s) Provider Source Aug 23, 2024 10:15 AM MENTAL HEALTH GROU P COUNSELING NOTE: LOCAL TITLE: PEER SUPPORT GROUP NOTE STL STANDARD TITLE: MENTAL HEALTH GROUP COUNSELING NOTE DATE OF NOTE: AUG 23, 2024@10:15 ENTRY DATE: AUG 23, 2024@11:11:07 AUTHOR: CHERRY SHERIFF EXP COSIGNER: URGENCY: STATUS: COMPLETED NAME OF GROUP/TOPIC: Music in Recovery TOTAL NUMBER OF VETERANS IN GROUP: 22 DATE SEEN: 08-23-2024 TIME: 101 DIRECTOR GEOTHERMAL OPERATIONS: ALEXANDRA Joyce DURATION OF VISIT: 45 minutes LOCATION OF VISIT: [X][facility] Grounds/[place]/[facility] [ ] In Community PROCEDURE CODE: H0038 x 3 { }If this is initial contact with Speech And Language Tutor: This is initial contact with Speech And Language Tutor (PS). Speech And Language Tutor provided informed consent; PS reviewed role/responsibilities, and limitations of confidentiality. Okatie consents to work with PS. FOCUS OF GROUP: Veterans picked songs that had some meaning to them and had helped them in their recovery. Okatie shared with the group why they picked the song they picked. Railroad Police shared how music can serve as a distraction between cravings, or decision to get that first drink. Railroad Police also encouraged Veterans to make meetings, get a sponsor and not try to recover alone. PRIMER POWDER BLENDER WET INTERVENTIONS UTILIZED TODAY: [X] Verbal presentation of material [X] Provided education, resources and/or wellness materials [ ] Group question and answer/Group discussion. [ ] Role play handing difficult or unfamiliar situations [ ] Role modeled healthy behaviors, social skills, using positive self- talk [ ] Motivational Interviewing to assist Okatie is determining goals or addressing current concerns [ ] Shared personal recovery story with Okatie [ ] Provided information about navigation of VA system [X] Provided encouragement and support [ ] Advocated for the and assisted them in developing effective self-advocacy. [ ] Other: BRIEF REVIEW OF 's RESPONSE TO TODAY'S GROUP (In Veterans own words): Meeting makers make it, I will make a meeting 'S STRENGTHS/ABILITIES OBSERVED OR REPORTED BY TODAY: reported I will make it this time. DIAGNOSIS OF RECORD: Cannabis Dependence RISK STATEMENT: [ ]Okatie reported suicidal/homicidal ideation [X]Okatie did not voice any suicidal/homicidal ideation PEER SUPPORT CONNECTIONS: [X] Veterans treatment/recovery plan includes peer support. PLAN FOR FOLLOW UP (Including degree of involvement Okatie wishes to have with Speech And Language Tutor): [X] Plan to meet again on the following date/time: 08-30-2024 @ 1015 [ ] No future session planned at this time [ ] Other: SUPERVISION STATEMENT: The Speech And Language Tutor receives supervision from assigned special education supervisor, [facility]. During this time their peer support direct service work and documentation is discussed and reviewed. /sanjeev/ ALISSA JOYCE Certified [place] Speech And Language Tutor Signed: 08/23/2024 11:24 CHERRY SHERIFF [facility]
--- OUTSIDE RECORDS SUMMARY | 2025-02-23 10:58 | XMS_ITS | Encounter Summary ---
Author Name [facility] [place] [facility] [place] [facility] [facility] [place] Address [address] [place] [address] Support Name Relationship Address Phone FUAD CHRISTINE [...] MEDIC AID Aug 02, 2015 MEDICAI D [id number] [phone] STACIE AYEJENNIFER PATIENT [facility] (WNR) MEDICAID MEDIC AID [facility] (WNR) Dec 01, 2023 MEDICAI D [id number] STACIE JENNIFER PATIENT Selected Encounter This section includes the information on record at [place] for the Encounter. Date/Time Encounter Type Encounter Description Reason Provider Source Sep 07, 2024 09:00 PM SELF-MGMT EDUC/TRAIN 5-8 PT SUBSTANCE USE DISORDR GRP ICD-10-CM F11.90 Opioid use, unspecified, uncomplicated JOSÉ AGUSTIN IHE Encounter Template Text not used by [place] Assessments - Encounter Diagnoses This section includes the primary and secondary diagnoses documented for the Encounter. Date/Time Primary/Secondary Diagnosis Diagnosis Name Provider Source Sep 07, 2024 09:56 PM PRIMARY Opioid use, unspecified, uncomplicated PANTERA AGUSTIN [facility] Plan of Treatment: Future Appointments (+ 6 months) and Future Tests (+/- 45 days) The Plan of Treatment section includes future care activities for the patient from [facility] [place] [facility] This section includes future appointments and future orders which are active, pending or scheduled. Future Appointments This section includes appointments that were scheduled to occur 6 months from the date of the Encounter, up to a maximum of 20 appointments. The data comes from all [place] treatment [facility]. Appointment Date/Time Appointment Type Appointme nt Facility Name Sep 10, 2024 12:30 PM AMBULATORY - PSYCHIATRY [facility] Sep 12, 2024 06:00 PM AMBULATORY - PSYCHIATRY [facility] Sep 17, 2024 06:00 PM AMBULATORY - PSYCHIATRY [facility] Sep 19, 2024 06:00 PM AMBULATORY - PSYCHIATRY [facility] Sep 26, 2024 06:00 PM AMBULATORY - PSYCHIATRY [facility] Oct 01, 2024 02:00 PM AMBULATORY - NONE [facility] Oct 09, 2024 03:00 PM AMBULATORY - MEDICINE [facility] Oct 16, 2024 01:00 PM AMBULATORY - PSYCHIATRY [facility] Oct 30, 2024 01:00 PM AMBULATORY - PSYCHIATRY [facility] Nov 27, 2024 01:00 PM AMBULATORY - PSYCHIATRY [facility] Dec 04, 2024 01:00 PM AMBULATORY - PSYCHIATRY [facility] Dec 11, 2024 01:00 PM AMBULATORY - PSYCHIATRY [facility] Dec 18, 2024 01:00 PM AMBULATORY - PSYCHIATRY [facility] Dec 25, 2024 01:00 PM AMBULATORY - PSYCHIATRY [facility] February 05, 2025 09:30 AM AMBULATORY - PSYCHIATRY [facility] Lab Results: +/- 30 days of the encounter This section includes the Chemistry and Hematology Lab Results on record with [place] for the patient. Radiology Reports and Pathology Reports are provided separately, in subsequent sections. Lab Results This section contains the Chemistry/Hematology Results that were resulted 30 days before or 30 daysafter the date of the Encounter. Date/Time Source Result Type Result - Unit Interpretation Reference Range Specimen Type Comment Sep 03, 2024 12:00 PM [facility] URINE DRUG SCREEN (STL) URINE Specimen Type: URINE Comment: The cut-off value for Fentanyl was laboratory developed and its performance characteristics confirmed by the [facility] laboratory thru method comparison with reference laboratory and medication chart review. The laboratory is regulated under CLIA as qualified to perform high-complexity testing. Fentanyl is used for clinical purposes in conjunction with other laboratory tests. Ordering Provider: DANIEL GOMEZ Report Released Date/Time: Sep 02, 2024 08:27 PM Reporting Lab: [facility] [phone] Performing Lab: [facility] [address] ETHANOL <10.0 mg/dL 0-9 AMPHET/METHAMPHETAMINE Negative ng/mL COCAINE METABOLITES Negative ng/mL BENZODIAZEPINES (STL) Negative ng/mL CANNABINOIDS POSITIVE ng/mL METHADONE Negative ng/mL OPIATES Negative ng/mL CREATININE URINE/OTHERS 110.1 mg/dL H 47.0 -110.0 OXYCODONE ([id number]) Negative ng/mL BUPRENORPHINE (STL-PB-MA) Negative ng/mL FENTANYL (STL-PB) Negative ng/mL Aug 25, 2024 02:03 PM [facility] URINE DRUG SCREEN (STL) URINE Specimen Type: URINE Comment: The cut-off value for Fentanyl was laboratory developed and its performance characteristics confirmed by the [facility] laboratory thru method comparison with reference laboratory and medication chart review. The laboratory is regulated under CLIA as qualified to perform high-complexity testing. Fentanyl is used for clinical purposes in conjunction with other laboratory tests. Ordering Provider: DANIEL GOMEZ Report Released Date/Time: Aug 24, 2024 07:24 PM Reporting Lab: [facility] [address] [facility] [address] Performing Lab: [facility] [address] [facility] [address] ETHANOL Negative mg/dL 0-20 AMPHET/METHAMPHETAMINE Negative ng/mL COCAINE METABOLITES Negative ng/mL BENZODIAZEPINES (STL) Negative ng/mL CANNABINOIDS POSITIVE ng/mL METHADONE Negative ng/mL OPIATES Negative ng/mL CREATININE URINE/OTHERS 39.0 mg/dL L 47-11 0 OXYCODONE ([id number]) Negative ng/mL BUPRENORPHINE (STL-PB-MA) Negative ng/mL FENTANYL (STL-PB) Negative ng/mL Aug 20, 2024 07:13 AM [facility] URINALYSIS W/ CX REFLEX (STL-PB) URINE Specim en Type: URINE No comment entered. Ordering Provider: DANIEL GOMEZ Report Released Date/Time: Aug 19, 2024 11:04 AM Reporting Lab: [facility] [address] Performing Lab: [facility] [place] [address] URINE COLOR Yellow Yellow U.BILIRUBIN Negative mg/dL [...] GRAVITY 1.028 Aug 19, 2024 10:08 AM [facility] URINALYSIS (STL-PB) URINE Specimen Type: URIN E No comment entered. Ordering Provider: DANIEL GOMEZ Report Released Date/Time: Aug 16, 2024 03:45 PM Reporting Lab: [facility] [address] Performing Lab: [facility] [place] [address] URINE COLOR Yellow Yellow U.BILIRUBIN Negative mg/dL [...] H Aug 19, 2024 10:08 AM [facility] TEST URINE (MA-STL) URINE Specimen Type: URINE No comment entered. Ordering Provider: DANIEL GOMEZ Report Released Date/Time: Aug 16, 2024 03:45 PM Reporting Lab: [facility] [address] Performing Lab: [facility] [address] Qualitative Test NEG NEGAT URBAN Aug 19, 2024 10:08 AM [facility] URINE DRUG SCREEN (STL) URINE Specimen Type: URINE Comment: The cut-off value for Fentanyl was laboratory developed and its performance characteristics confirmed by the [facility] laboratory thru method comparison with reference laboratory and medication chart review. The laboratory is regulated under CLIA as qualified to perform high-complexity testing. Fentanyl is used for clinical purposes in conjunction with other laboratory tests. Ordering Provider: DANIEL GOMEZ Report Released Date/Time: Aug 16, 2024 03:45 PM Reporting Lab: [facility] [phone] Performing Lab: [facility] [address] ETHANOL Negative mg/dL 0-20 AMPHET/METHAMPHETAMINE Negative ng/mL COCAINE METABOLITES Negative ng/mL BENZODIAZEPINES (STL) Negative ng/mL CANNABINOIDS POSITIVE ng/mL METHADONE Negative ng/mL OPIATES POSITIVE ng/mL CREATININE URINE/OTHERS 266.1 mg/dL H 47.0 -110.0 OXYCODONE (KQRIJ-CKN-AB) Negative ng/mL BUPRENORPHINE (STL-PB-MA) Negative ng/mL FENTANYL (STL-PB) Negative ng/mL Aug 19, 2024 10:00 AM [facility] CBC BLOOD Specimen Type: BLOOD No comment entered. Ordering Provider: DANIEL GOMEZ Report Released Date/Time: Aug 16, 2024 03:45 PM Reporting Lab: [facility] [address] Performing Lab: [facility] [place] [phone] WBC 12.7 10*3/uL H 3.6-11.2 RBC 4.19 [...] 20 Aug 19, 2024 09:59 AM [facility] COMPREHENSIVE METABOLIC PANEL PLASMA Specimen Type: PLASMA Comment: No hemolysis noted. Ordering Provider: DANIEL GOMEZ Report Released Date/Time: Aug 16, 2024 03:45 PM Reporting Lab: [facility] [address] Performing Lab: [facility] [place] [phone] CREATININE 0.75 mg/dL 0.60-1.10 UREA NITROGEN 12.0 [...] >60 Aug 19, 2024 09:59 AM [facility] PT/INR NEW (STL-MA) PLASMA Specimen Type: PLAS MA No comment entered. Ordering Provider: DANIEL GOMEZ Report Released Date/Time: Aug 16, 2024 03:45 PM Reporting Lab: [facility] [place] [address] Performing Lab: [facility] [place] [address] PROTIME 9.4 s 9.4-12.5 INR VALUE 0.8 {INR} Aug 19, 2024 09:59 AM [facility] ETHANOL SERUM/PLASMA (STL) PLASMA Specimen Typ e: PLASMA Comment: No hemolysis noted. Ordering Provider: DANIEL GOMEZ Report Released Date/Time: Aug 16, 2024 03:45 PM Reporting Lab: [facility] [address] Performing Lab: [facility] [address] ETHANOL SERUM/PLASMA (STL) <10.0 mg/dL 0 -10 Aug 19, 2024 09:59 AM [facility] GGT GAMMA-GT PLASMA Specimen Type: PLASM A No comment entered. Ordering Provider: DANIEL GOMEZ Report Released Date/Time: Aug 16, 2024 03:45 PM Reporting Lab: [facility] [address] [facility] [address] Performing Lab: [facility] [address] [facility] [address] GGT GAMMA-GT 14 [IU]/L 12-64 Aug 19, 2024 09:59 AM [facility] MAGNESIUM PLASMA Specimen Type: PLASM A Comment: No hemolysis noted. Ordering Provider: DANIEL GOMEZ Report Released Date/Time: Aug 16, 2024 03:45 PM Reporting Lab: [facility] [address] Performing Lab: [facility] [address] MAGNESIUM 2.1 mg/dL 1.6-2.6 Aug 19, 2024 09:59 AM [facility] CPK SERUM Specimen Type: SERUM No comment entered. Ordering Provider: DANIEL GOMEZ Report Released Date/Time: Aug 16, 2024 03:45 PM Reporting Lab: [facility] [address] Performing Lab: [facility] [address] CPK 37 U/L 29-168 Aug 19, 2024 09:59 AM [facility] HEP C Ab HCV Ab (STL) SERUM Specimen Type: SE RUM No comment entered. Ordering Provider: DANIEL GOMEZ Report Released Date/Time: Aug 16, 2024 03:45 PM Reporting Lab: [facility] [address] [facility] [address] Performing Lab: [facility] [address] [facility] [address] HEP C Ab HCV Ab (STL) Nonreactive Nonrea ctive Aug 19, 2024 09:59 AM [facility] HIV COMBO FOURTH GENERATION (STL) SERUM Speci men Type: SERUM No comment entered. Ordering Provider: DANIEL GOMEZ Report Released Date/Time: Aug 16, 2024 03:45 PM Reporting Lab: [facility] [address] [facility] [address] Performing Lab: [facility] [address] [facility] [address] HIV COMBO FOURTH GENERATION (STL) Nonreactive Nonreactive Encounter Notes: All associated encounter notes This section contains the clinical notes associated to the Encounter. Date/Time Encounter Note(s) Provider Source Sep 07, 2024 09:00 PM PSYCHIATRY GROUP C GURPREET NOTE: LOCAL TITLE: [facility] PSYCHIATRY GROUP NOTE STL STANDARD TITLE: PSYCHIATRY GROUP COUNSELING NOTE DATE OF NOTE: SEP 07, 2024@21:00 ENTRY DATE: SEP 07, 2024@21:50:44 AUTHOR: SHAHZAD AGUSTIN EXP COSIGNER: URGENCY: STATUS: COMPLETED Discipline: Nursing Group time: Group Topic: Wrap Up Group Group Content: was one of Twenty-five who attended this [facility] wrap up group. All veterans were encouraged to talk about what they had learned and a positive aspect from [facility] treatment program. Random questions were answered. Unit rules [...] /es/ SHAHZAD AGUSTIN RN REGISTERED NURSE Signed: 09/07/2024 21:59 SHAHZAD AGUSTIN [facility]
--- OUTSIDE RECORDS SUMMARY | 2025-02-23 10:58 | XMS_ITS | Encounter Summary ---
Author Name [facility] [place] Organization [facility] [place] Address [address] [place] [id number] Support Name Relationship Address Phone FUAD CHRISTINE [...] MEDIC AID Aug 02, 2015 MEDICAI D [id number] [phone] STACIE JENNIFER PATIENT [facility] (WNR) MEDICAID MEDIC AID [facility] (WNR) Dec 01, 2023 MEDICAI D [id number] STACIE JENNIFER PATIENT Selected Encounter This section includes the information on record at [place] for the Encounter. Date/Time Encounter Type Encounter Description Reason Provider Source Sep 02, 2024 02:11 PM [facility] ICD-10-CM F14.90 Cocaine use, unspecified, uncomplicated LAND,MARISHAW N P IHE Encounter Template Text not used by [place] Assessments - Encounter Diagnoses This section includes the primary and secondary diagnoses documented for the Encounter. Date/Time Primary/Secondary Diagnosis Diagnosis Name Provider Source Sep 02, 2024 02:32 PM PRIMARY Cocaine use, unspecified, uncomplicated LAND,MARISHAWN P [facility] Sep 02, 2024 02:32 PM SECONDARY Opioid use, unspecified, uncomplicated LAND,MARISHAWN P [facility] Plan of Treatment: Future Appointments (+ 6 months) and Future Tests (+/- 45 days) The Plan of Treatment section includes future care activities for the [facility] This section includes future appointments and future orders which are active, pending or scheduled. Future Appointments This section includes appointments that were scheduled to occur 6 months from the date of the Encounter, up to a maximum of 20 appointments. The data comes from all [facility]. Appointment Date/Time Appointment Type Appointme nt Facility Name Sep 10, 2024 12:30 PM AMBULATORY - PSYCHIATRY [facility] Sep 12, 2024 06:00 PM AMBULATORY - PSYCHIATRY [facility] Sep 17, 2024 06:00 PM AMBULATORY - PSYCHIATRY [facility] Sep 19, 2024 06:00 PM AMBULATORY - PSYCHIATRY [facility] Sep 26, 2024 06:00 PM AMBULATORY - PSYCHIATRY [facility] Oct 01, 2024 02:00 PM AMBULATORY - NONE [facility] Oct 09, 2024 03:00 PM AMBULATORY - MEDICINE [facility] Oct 16, 2024 01:00 PM AMBULATORY - PSYCHIATRY [facility] Oct 30, 2024 01:00 PM AMBULATORY - PSYCHIATRY [facility] Nov 27, 2024 01:00 PM AMBULATORY - PSYCHIATRY [facility] Dec 04, 2024 01:00 PM AMBULATORY - PSYCHIATRY [facility] Dec 11, 2024 01:00 PM AMBULATORY - PSYCHIATRY [facility] Dec 18, 2024 01:00 PM AMBULATORY - PSYCHIATRY [facility] Dec 25, 2024 01:00 PM AMBULATORY - PSYCHIATRY [facility] February 05, 2025 09:30 AM AMBULATORY - PSYCHIATRY [facility] Lab Results: +/- [...] Type Comment Sep 03, 2024 12:00 PM [facility] URINE DRUG SCREEN (STL) URINE Specimen Type: URINE Comment: The cut-off value for Fentanyl was laboratory developed and its performance characteristics confirmed by the [facility] laboratory thru method comparison with reference laboratory and medication chart review. The laboratory is regulated under CLIA as qualified to perform high-complexity testing. Fentanyl is used for clinical purposes in conjunction with other laboratory tests. Ordering Provider: DANIEL GOMEZ Report Released Date/Time: Sep 02, 2024 08:27 PM Reporting Lab: [facility] [phone] Performing Lab: [facility] [phone] ETHANOL <10.0 mg/dL 0-9 AMPHET/METHAMPHETAMINE Negative ng/mL COCAINE METABOLITES Negative ng/mL BENZODIAZEPINES (STL) Negative ng/mL CANNABINOIDS POSITIVE ng/mL METHADONE Negative ng/mL OPIATES Negative ng/mL CREATININE URINE/OTHERS 110.1 mg/dL H 47.0 -110.0 OXYCODONE ([id number]) Negative ng/mL BUPRENORPHINE (STL-PB-MA) Negative ng/mL FENTANYL (STL-PB) Negative ng/mL Aug 25, 2024 02:03 PM [facility] URINE DRUG SCREEN (STL) URINE Specimen Type: URINE Comment: The cut-off value for Fentanyl was laboratory developed and its performance characteristics confirmed by the [facility] laboratory thru method comparison with reference laboratory and medication chart review. The laboratory is regulated under CLIA as qualified to perform high-complexity testing. Fentanyl is used for clinical purposes in conjunction with other laboratory tests. Ordering Provider: DANIEL GOMEZ Report Released Date/Time: Aug 24, 2024 07:24 PM Reporting Lab: [facility] [address] [facility] [phone] Performing Lab: [facility] [address] [facility] [address] ETHANOL Negative mg/dL 0-20 AMPHET/METHAMPHETAMINE Negative ng/mL COCAINE METABOLITES Negative ng/mL BENZODIAZEPINES (STL) Negative ng/mL CANNABINOIDS POSITIVE ng/mL METHADONE Negative ng/mL OPIATES Negative ng/mL CREATININE URINE/OTHERS 39.0 mg/dL L 47-11 0 OXYCODONE ([id number]) Negative ng/mL BUPRENORPHINE (STL-PB-MA) Negative ng/mL FENTANYL (STL-PB) Negative ng/mL Aug 20, 2024 07:13 AM [facility] URINALYSIS W/ CX REFLEX (STL-PB) URINE Specim en Type: URINE No comment entered. Ordering Provider: DANIEL GOMEZ Report Released Date/Time: Aug 19, 2024 11:04 AM Reporting Lab: [facility] [phone] Performing Lab: [facility] [place] [address] URINE COLOR Yellow Yellow U.BILIRUBIN Negative mg/dL [...] 2024 10:08 AM [facility] URINALYSIS (STL-PB) URINE Specimen Type: URIN E No comment entered. Ordering Provider: DANIEL GOMEZ Report Released Date/Time: Aug 16, 2024 03:45 PM Reporting Lab: [facility] [phone] Performing Lab: [facility] [phone] URINE COLOR Yellow Yellow U.BILIRUBIN Negative mg/dL [...] 1.035 H Aug 19, 2024 10:08 AM [facility] TEST URINE (MA-STL) URINE Specimen Type: URINE No comment entered. Ordering Provider: DANIEL GOMEZ Report Released Date/Time: Aug 16, 2024 03:45 PM Reporting Lab: [facility] [phone] Performing Lab: [facility] [facility] [phone] Qualitative Test NEG NEGAT URBAN Aug 19, 2024 10:08 AM [facility] URINE DRUG SCREEN (STL) URINE Specimen Type: URINE Comment: The cut-off value for Fentanyl was laboratory developed and its performance characteristics confirmed by the [facility] laboratory thru method comparison with reference laboratory and medication chart review. The laboratory is regulated under CLIA as qualified to perform high-complexity testing. Fentanyl is used for clinical purposes in conjunction with other laboratory tests. Ordering Provider: DANIEL GOMEZ Report Released Date/Time: Aug 16, 2024 03:45 PM Reporting Lab: [facility] [phone] Performing Lab: [facility] [phone] ETHANOL Negative mg/dL 0-20 AMPHET/METHAMPHETAMINE Negative ng/mL COCAINE METABOLITES Negative ng/mL BENZODIAZEPINES (STL) Negative ng/mL CANNABINOIDS POSITIVE ng/mL METHADONE Negative ng/mL OPIATES POSITIVE ng/mL CREATININE URINE/OTHERS 266.1 mg/dL H 47.0 -110.0 OXYCODONE ([id number]) Negative ng/mL BUPRENORPHINE (STL-PB-MA) Negative ng/mL FENTANYL (STL-PB) Negative ng/mL Aug 19, 2024 10:00 AM [facility] CBC BLOOD Specimen Type: BLOOD No comment entered. Ordering Provider: DANIEL GOMEZ Report Released Date/Time: Aug 16, 2024 03:45 PM Reporting Lab: [facility] [phone] Performing Lab: [facility] [phone] WBC 12.7 10*3/uL H 3.6-11.2 RBC 4.19 [...] 0.00-0. 20 Aug 19, 2024 09:59 AM [facility] COMPREHENSIVE METABOLIC PANEL PLASMA Specimen Type: PLASMA Comment: No hemolysis noted. Ordering Provider: DANIEL GOMEZ Report Released Date/Time: Aug 16, 2024 03:45 PM Reporting Lab: [facility] [phone] Performing Lab: [facility] [phone] CREATININE 0.75 mg/dL 0.60-1.10 UREA NITROGEN 12.0 [...] 2024 09:59 AM [facility] PT/INR NEW (STL-MA) PLASMA Specimen Type: PLAS MA No comment entered. Ordering Provider: DANIEL GOMEZ Report Released Date/Time: Aug 16, 2024 03:45 PM Reporting Lab: [facility] [place] [address] Performing Lab: [facility] [place] [address] PROTIME 9.4 s 9.4-12.5 INR VALUE 0.8 {INR} Aug 19, 2024 09:59 AM [facility] ETHANOL SERUM/PLASMA (STL) PLASMA Specimen Typ e: PLASMA Comment: No hemolysis noted. Ordering Provider: DANIEL GOMEZ Report Released Date/Time: Aug 16, 2024 03:45 PM Reporting Lab: [facility] [place] [address] Performing Lab: [facility] [place] [address] ETHANOL SERUM/PLASMA (STL) <10.0 mg/dL 0 -10 Aug 19, 2024 09:59 AM [facility] GGT GAMMA-GT PLASMA Specimen Type: PLASM A No comment entered. Ordering Provider: DANIEL GOMEZ Report Released Date/Time: Aug 16, 2024 03:45 PM Reporting Lab: [facility] [address] [facility] [address] Performing Lab: [facility] [address] [facility] [address] GGT GAMMA-GT 14 [IU]/L 12-64 Aug 19, 2024 09:59 AM [facility] MAGNESIUM PLASMA Specimen Type: PLASM A Comment: No hemolysis noted. Ordering Provider: DANIEL GOMEZ Report Released Date/Time: Aug 16, 2024 03:45 PM Reporting Lab: [facility] [place] [phone] Performing Lab: [facility] [phone] MAGNESIUM 2.1 mg/dL 1.6-2.6 Aug 19, 2024 09:[address] [facility] CPK SERUM Specimen Type: SERUM No comment entered. Ordering Provider: DANIEL GOMEZ Report Released Date/Time: Aug 16, 2024 03:45 PM Reporting Lab: [facility] [facility] [phone] Performing Lab: [facility] [facility] [phone] CPK 37 U/L 29-168 Aug 19, 2024 09:59 AM [facility] HEP C Ab HCV Ab (STL) SERUM Specimen Type: SE RUM No comment entered. Ordering Provider: DANIEL GOMEZ Report Released Date/Time: Aug 16, 2024 03:45 PM Reporting Lab: [facility] [address] [facility] [address] Performing Lab: [address] [phone] HEP C Ab HCV Ab (STL) Nonreactive Nonrea ctive Aug 19, 2024 09:59 AM [facility] HIV COMBO FOURTH GENERATION (STL) SERUM Speci men Type: SERUM No comment entered. Ordering Provider: DANIEL GOMEZ Report Released Date/Time: Aug 16, 2024 03:45 PM Reporting Lab: [facility] [address] [facility] [address] Performing Lab: [facility] [address] [facility] [address] HIV COMBO FOURTH GENERATION (STL) Nonreactive Nonreactive [...] AM VA-TOBACCO USE ALFONZO RY DAY CIGARETTES [facility] Tobacco Use History This section includes a history of the smoking, or tobacco-related health factors, that were collected on or before the date of the Encounter. The data comes from the [place] facility where the Encounter took place. Date/Time Smoking Status/Tobacco Use Comment F acility Aug 19, 2024 10:33 AM VA-TOBACCO SCREEN FOLLOW-UP [facility] Aug 19, 2024 10:33 AM VA-TOBACCO USE ADVICE [facility] Aug 19, 2024 10:33 AM VA-TOBACCO USE WRAPAROUND FACILITATOR NO [facility] Aug 19, 2024 10:33 AM VA-TOBACCO USE ALFONZO RY DAY CIGARETTES [facility] Aug 19, 2024 10:33 AM VA-TOBACCO USE MED YES [facility] Aug 19, 2024 10:33 AM VA-TOBACCO USE WI 30 MIN OF WAKEUP [facility] Encounter Notes: All associated encounter notes This section contains the clinical notes associated to the Encounter. Date/Time Encounter Note(s) Provider Source Sep 01, 2024 06:15 PM ADDICTION PSYCHIAT RY NOTE: LOCAL TITLE: [facility]ABILITATION STL STANDARD TITLE: ADDICTION PSYCHIATRY NOTE DATE OF NOTE: SEP 01, 2024@18:15 ENTRY DATE: SEP 02, 2024@14:19:36 AUTHOR: TAZ DAHL EXP COSIGNER: URGENCY: STATUS: COMPLETED GROUP TITLE: Unspoken Family Rules: How Do These Rules Shape Your Decisions. GROUP TIME: 09-01-24Monday 18:15p SESSION LENGTH: 45 min. NUMBER IN ATTENDANCE: 22 PURPOSE OF THE GROUP: The purpose of this group is to discuss the topic Unspoken Family Rules: How Do These Rules Shape Your Decisions. INTERVENTIONS: -Discussed with participants that every individual brings with them into adulthood unspoken rules, patterns and expectations that originate with them from their family of origin into their adulthood. These patterns, expectations and unspoken rules influence their belief system as the enter adulthood. -Veterans looked at a list of unspoken rules that were given to them. Veterans then discussed how some of the rules presented on the list originated in their own families and affected their own beliefs and behaviors. -Some veterans went on to discuss how many of these unspoken rules have been past down generationally in their own families and still affect their beliefs and behaviors to this day. VETERANS LEVEL OF ENGAGEMENT: COMMENTS: This was an active participant in todays group activity. RISK ASSESSMENT: did not verbalize any new risk factors/SI/HI during session RESPONSE TO INTERVENTION (OPTIONAL): N/A PLAN: Continue with residential treatment through [facility]. DIAGNOSIS: Substance Abuse/Dependence /es/ TAZ DAHL Addiction Therapist [facility] / [facility] / IOP Signed: 09/02/2024 14:32 TAZ DAHL [facility]
--- OUTSIDE RECORDS SUMMARY | 2025-02-23 10:58 | XMS_ITS | Encounter Summary ---
Author Name [facility] [place] [facility] [place] [facility] [place] Address [address] [place] [address] Support Name Relationship Address Phone FUAD CHRISTINE [...] MEDIC AID Aug 02, 2015 MEDICAI D [id number] [phone] STACIE JENNIFER PATIENT [facility] (WNR) MEDICAID MEDIC AID [facility] (WNR) Dec 01, 2023 MEDICAI D [id number] JENNIFER QUINONES PATIENT Selected Encounter This section includes the information on record at [place] for the Encounter. Date/Time Encounter Type Encounter Description Reason Provider Source Aug 24, 2024 01:15 PM SELF-MGMT EDUC/TRAIN 5-8 PT SUBSTANCE USE DISORDR GRP ICD-10-CM F14.90 Cocaine use, unspecified, uncomplicated RUSH OLMSTEAD Peggy Encounter Template Text not used by [place] Assessments - Encounter Diagnoses This section includes the primary and secondary diagnoses documented for the Encounter. Date/Time Primary/Secondary Diagnosis Diagnosis Name Provider Source Aug 24, 2024 01:50 PM PRIMARY Cocaine use, unspecified, uncomplicated BOBY OLMSTEAD [facility] Plan of Treatment: Future Appointments (+ 6 months) and Future Tests (+/- 45 days) The Plan of Treatment section includes future care activities for the patient from all [place] [facility]. This section includes future appointments and future orders which are active, pending or scheduled. Future Appointments This section includes appointments that were scheduled to occur 6 months from the date of the Encounter, up to a maximum of 20 appointments. The data comes from all [place] [facility]. Appointment Date/Time Appointment Type Appointme nt Facility Name Sep 10, 2024 12:30 PM AMBULATORY - [facility]ATRY [facility] Sep 12, 2024 06:00 PM AM[facility]ATORY - [facility]RY [facility] Sep 17, 2024 06:00 PM AMBULATORY - PSYCHIATRY [facility] Sep 19, 2024 06:00 PM AMBULATORY - PSYCHIATRY [facility] Sep 26, 2024 06:00 PM AMBULATORY - PSYCHIATRY [facility] Oct 01, 2024 02:00 PM AMBULATORY - NONE [facility] Oct 09, 2024 03:00 PM AMBULATORY - MEDICINE [facility] Oct 16, 2024 01:00 PM AMBULATORY - PSYCHIATRY [facility] Oct 30, 2024 01:00 PM AMBULATORY - PSYCHIATRY [facility] Nov 27, 2024 01:00 PM AMBULATORY - PSYCHIATRY [facility] Dec 04, 2024 01:00 PM AMBULATORY - PSYCHIATRY [facility] Dec 11, 2024 01:00 PM AMBULATORY - PSYCHIATRY [facility] Dec 18, 2024 01:00 PM AMBULATORY - PSYCHIATRY [facility] Dec 25, 2024 01:00 PM AMBULATORY - PSYCHIATRY [facility] February 05, 2025 09:30 AM AMBULATORY - PSYCHIATRY [facility] Lab Results: +/- 30 days of the [...] and its performance characteristics confirmed by the [facility] laboratory thru method comparison with reference laboratory and medication chart review. The laboratory is regulated under CLIA as qualified to perform high-complexity testing. Fentanyl is used for clinical purposes in conjunction with other laboratory tests. Ordering Provider: DANIEL GOMEZ Report Released Date/Time: Sep 02, 2024 08:27 PM Reporting Lab: [facility] [facility] [phone] Performing Lab: [facility] [address] ETHANOL <10.0 mg/dL 0-9 AMPHET/METHAMPHETAMINE Negative ng/mL COCAINE METABOLITES Negative ng/mL BENZODIAZEPINES (STL) Negative ng/mL CANNABINOIDS POSITIVE ng/mL METHADONE Negative ng/mL OPIATES Negative ng/mL CREATININE URINE/OTHERS 110.1 mg/dL H 47.0 -110.0 OXYCODONE ([id number]-BI) Negative ng/mL BUPRENORPHINE (STL-PB-MA) Negative ng/mL FENTANYL (STL-PB) Negative ng/mL Aug 25, 2024 02:03 PM [facility] URINE DRUG SCREEN (STL) URINE Specimen Type: URINE Comment: The cut-off value for Fentanyl was laboratory developed and its performance characteristics confirmed by the [facility] laboratory thru method comparison with reference laboratory and medication chart review. The laboratory is regulated under CLIA as qualified to perform high-complexity testing. Fentanyl is used for clinical purposes in conjunction with other laboratory tests. Ordering Provider: DANIEL GOMEZ Report Released Date/Time: Aug 24, 2024 07:24 PM Reporting Lab: [facility] [address] [address] Performing Lab: [facility] [address] [facility] [address] ETHANOL Negative mg/dL 0-20 AMPHET/METHAMPHETAMINE Negative ng/mL COCAINE METABOLITES Negative ng/mL BENZODIAZEPINES (STL) Negative ng/mL CANNABINOIDS POSITIVE ng/mL METHADONE Negative ng/mL OPIATES Negative ng/mL CREATININE URINE/OTHERS 39.0 mg/dL L 47-11 0 OXYCODONE (EIENF-YUK-RD) Negative ng/mL BUPRENORPHINE (STL-PB-MA) Negative ng/mL FENTANYL (STL-PB) Negative ng/mL Aug 20, 2024 07:13 AM [facility] URINALYSIS W/ CX REFLEX (STL-PB) URINE Specim en Type: URINE No comment entered. Ordering Provider: DANIEL GOMEZ Report Released Date/Time: Aug 19, 2024 11:04 AM Reporting Lab: [facility] [place] [phone] Performing Lab: [facility] [place] [address] URINE COLOR Yellow Yellow U.BILIRUBIN Negative mg/dL [...] Lab: [facility] [address] Performing Lab: [facility] [place] [address] URINE COLOR Yellow Yellow U.BILIRUBIN Negative mg/dL [...] Lab: [facility] [address] Performing Lab: [facility] #[address] [facility] [address] Qualitative Test NEG NEGAT URBAN Aug 19, 2024 10:08 AM [facility] URINE DRUG SCREEN (STL) URINE Specimen Type: URINE Comment: The cut-off value for Fentanyl was laboratory developed and its performance characteristics confirmed by the [facility] laboratory thru method comparison with reference laboratory and medication chart review. The laboratory is regulated under CLIA as qualified to perform high-complexity testing. Fentanyl is used for clinical purposes in conjunction with other laboratory tests. Ordering Provider: DANIEL GOMEZ Report Released Date/Time: Aug 16, 2024 03:45 PM Reporting Lab: [facility] [address] Performing Lab: [facility] [address] ETHANOL Negative mg/dL 0-20 AMPHET/METHAMPHETAMINE Negative ng/mL COCAINE METABOLITES Negative ng/mL BENZODIAZEPINES (STL) Negative ng/mL CANNABINOIDS POSITIVE ng/mL METHADONE Negative ng/mL OPIATES POSITIVE ng/mL CREATININE URINE/OTHERS 266.1 mg/dL H 47.0 -110.0 OXYCODONE (FETDV-MQH-FR) Negative ng/mL BUPRENORPHINE (STL-PB-MA) Negative ng/mL FENTANYL (STL-PB) Negative ng/mL Aug 19, 2024 10:00 AM [facility] CBC BLOOD Specimen Type: BLOOD No comment entered. Ordering Provider: DANIEL GOMEZ Report Released Date/Time: Aug 16, 2024 03:45 PM Reporting Lab: [facility] [address] Performing Lab: [facility] [place] [phone] WBC 12.7 10*3/uL H 3.6-11.2 RBC 4.19 [...] 2024 09:59 AM [facility] COMPREHENSIVE METABOLIC PANEL PLASMA Specimen Type: PLASMA Comment: No hemolysis noted. Ordering Provider: DANIEL GOMEZ Report Released Date/Time: Aug 16, 2024 03:45 PM Reporting Lab: [facility] [address] Performing Lab: [facility] [place] [phone] CREATININE 0.75 mg/dL 0.60-1.10 UREA NITROGEN 12.0 [...] AM [facility] PT/INR NEW (STL-MA) PLASMA Specimen Type: PLAS MA No comment entered. Ordering Provider: DANIEL GOMEZ Report Released Date/Time: Aug 16, 2024 03:45 PM Reporting Lab: [facility] [place] [address] Performing Lab: [facility] [place] [address] PROTIME 9.4 s 9.4-12.5 INR VALUE 0.8 {INR} Aug 19, 2024 09:59 AM [facility] ETHANOL SERUM/PLASMA (STL) PLASMA Specimen Typ e: PLASMA Comment: No hemolysis noted. Ordering Provider: DANIEL GOMEZ Report Released Date/Time: Aug 16, 2024 03:45 PM Reporting Lab: [facility] [address] Performing Lab: [facility] [facility] [address] ETHANOL SERUM/PLASMA (STL) <10.0 mg/dL 0 -10 Aug 19, 2024 09:59 AM [facility] GGT GAMMA-GT PLASMA Specimen Type: PLASM A No comment entered. Ordering Provider: DANIEL GOMEZ Report Released Date/Time: Aug 16, 2024 03:45 PM Reporting Lab: [facility] [address] [address] Performing Lab: [facility] [address] [facility] [place] [address] GGT GAMMA-GT 14 [IU]/L 12-64 Aug 19, 2024 09:59 AM [facility] MAGNESIUM PLASMA Specimen Type: PLASM A Comment: No hemolysis noted. Ordering Provider: DANIEL GOMEZ Report Released Date/Time: Aug 16, 2024 03:45 PM Reporting Lab: [facility] [address] Performing Lab: [facility] [facility] [phone] MAGNESIUM 2.1 mg/dL 1.6-2.6 Aug 19, 2024 09:59 AM [facility] CPK SERUM Specimen Type: SERUM No comment entered. Ordering Provider: DANIEL GOMEZ Report Released Date/Time: Aug 16, 2024 03:45 PM Reporting Lab: [facility] [address] Performing Lab: [facility] [facility] [address] CPK 37 U/L 29-168 Aug 19, 2024 09:59 AM [facility] HEP C Ab HCV Ab (STL) SERUM Specimen Type: SE RUM No comment entered. Ordering Provider: DANIEL GOMEZ Report Released Date/Time: Aug 16, 2024 03:45 PM Reporting Lab: [facility] [address] [facility] [address] Performing Lab: [facility] [address] [facility] [phone] HEP C Ab HCV Ab (STL) Nonreactive Nonrea ctive Aug 19, 2024 09:59 AM [facility] HIV COMBO FOURTH GENERATION (STL) SERUM Speci men Type: SERUM No comment entered. Ordering Provider: DANIEL GOMEZ Report Released Date/Time: Aug 16, 2024 03:45 PM Reporting Lab: [facility] [address] [facility] [address] Performing Lab: [facility] [address] [facility] [phone] HIV COMBO FOURTH GENERATION (STL) Nonreactive Nonreactive Encounter Notes: All associated encounter notes This section contains the clinical notes associated to the Encounter. Date/Time Encounter Note(s) Provider Source Aug 24, 2024 01:15 PM PSYCHIATRY GROUP C GURPREET NOTE: LOCAL TITLE: [facility]YCHI[facility]RY GROUP NOTE STL STANDARD TITLE: PSYCHIATRY GROUP COUNSELING NOTE DATE OF NOTE: AUG 24, 2024@13:15 ENTRY DATE: AUG 24, 2024@13:44:54 AUTHOR: SURYA OLMSTEAD EXP COSIGNER: URGENCY: STATUS: COMPLETED Discipline: Nursing Group Time: [id number] Group Topics: Movie; award winning film Addiction. Group Content: This group watched a movie about addiction by Rakan Reyes Can Solve This Crisis Together Group Goals: The goal of this group was to show the effects drug use has on families. Patient Response: Actively Engaged Number of Participants in Group:25 /es/ SURYA OLMSTEAD BSParveen ROBYN RN REGISTERED NURSE Signed: 08/24/2024 13:54 SURYA OLMSTEAD [facility]
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
--- OUTSIDE RECORDS SUMMARY | 2025-02-23 10:59 | XMS_ITS | Encounter Summary ---
Author Name [facility] ([place]) Organization [facility] Address [address] [place] [id number] Support Name Relationship Address Phone FUAD CHRISTINE Next of Kin Unknown CHRISTINE MERIDA Emergency Contact Unknown [phone] Insurance Providers: All historical and current Section [...] MEDIC AID Aug 02, 2015 MEDICAI D [id number] [phone] STACIE JENNIFER PATIENT [facility] (WNR) MEDICAID MEDIC AID [facility] (WNR) Dec 01, 2023 MEDICAI D [id number] STACIE AYEJENNIFER PATIENT Selected Encounter This section includes the information on record at [place] for the Encounter. Date/Time Encounter Type Encounter Description Reason Provider Source Aug 27, 2024 01:15 PM [facility] ICD-10-CM F12.20 Cannabis dependence, uncomplicated SUGEY ROSAS IHPeggy Encounter Template Text not used by [place] Assessments - Encounter Diagnoses This section includes the primary and secondary diagnoses documented for the Encounter. Date/Time Primary/Secondary Diagnosis Diagnosis Name Provider Source Aug 27, 2024 04:35 PM PRIMARY Cannabis dependence, uncomplicated TOMI ROSAS [facility] Aug 27, 2024 04:35 PM SECONDARY Alcohol use, unspecified, uncomplicated TOMI ROSAS [facility] Aug 27, 2024 04:35 PM SECONDARY Cocaine use, unspecified, uncomplicated TOMI ROSAS [facility] Aug 27, 2024 04:35 PM SECONDARY Opioid use, unspecified, uncomplicated TOMI ROSAS [facility] Plan of Treatment: Future Appointments (+ 6 months) and Future Tests (+/- 45 days) The Plan of Treatment section includes future care activities for the patient from all [place] [facility]. This section includes future appointments and future orders which are active, pending or scheduled. Future Appointments This section includes appointments that were scheduled to occur 6 months from the date of the Encounter, up to a maximum of 20 appointments. The data comes from all [facility] facilities. Appointment Date/Time Appointment Type Appointme nt Facility Name Sep 10, 2024 12:30 PM AMBULATORY - PSYCHIATRY [facility] Sep 12, 2024 06:00 PM AMBULATORY - PSYCHIATRY [facility] Sep 17, 2024 06:00 PM AMBULATORY - PSYCHIATRY [facility] Sep 19, 2024 06:00 PM AMBULATORY - PSYCHIATRY [facility] Sep 26, 2024 06:00 PM AMBULATORY - PSYCHIATRY [facility] Oct 01, 2024 02:00 PM AMBULATORY - NONE [facility] Oct 09, 2024 03:00 PM AMBULATORY - MEDICINE [facility] Oct 16, 2024 01:00 PM AMBULATORY - PSYCHIATRY [facility] Oct 30, 2024 01:00 PM AMBULATORY - PSYCHIATRY [facility] Nov 27, 2024 01:00 PM AMBULATORY - PSYCHIATRY [facility] Dec 04, 2024 01:00 PM AMBULATORY - PSYCHIATRY [facility] Dec 11, 2024 01:00 PM AMBULATORY - PSYCHIATRY [facility] Dec 18, 2024 01:00 PM AMBULATORY - PSYCHIATRY [facility] Dec 25, 2024 01:00 PM AMBULATORY - PSYCHIATRY [facility] February 05, 2025 09:30 AM AMBULATORY - PSYCHIATRY [facility] Lab Results: +/- 30 days of the encounter This section includes the Chemistry and Hematology Lab Results on record with [place] for the patient. Radiology Reports and Pathology Reports are provided separately, in subsequent sections. Lab Results This section contains the Chemistry/Hematology Results that were resulted 30 days before or 30 daysafter the date of the Encounter. Date/Time Source Result Type Result - Unit Interpretation Reference Range Specimen Type Comment Sep 03, 2024 12:00 PM [facility] URINE DRUG SCREEN (STL) URINE Specimen Type: URINE Comment: The cut-off value for Fentanyl was laboratory developed and its performance characteristics confirmed by the [facility] laboratory thru method comparison with reference laboratory and medication chart review. The laboratory is regulated under CLIA as qualified to perform high-complexity testing. Fentanyl is used for clinical purposes in conjunction with other laboratory tests. Ordering Provider: DANIEL GOMEZ Report Released Date/Time: Sep 02, 2024 08:27 PM Reporting Lab: [facility] [address] Performing Lab: [facility] [address] ETHANOL <10.0 mg/dL 0-9 AMPHET/METHAMPHETAMINE Negative ng/mL COCAINE METABOLITES Negative ng/mL BENZODIAZEPINES (STL) Negative ng/mL CANNABINOIDS POSITIVE ng/mL METHADONE Negative ng/mL OPIATES Negative ng/mL CREATININE URINE/OTHERS 110.1 mg/dL H 47.0 -110.0 OXYCODONE ([id number]-DM) Negative ng/mL BUPRENORPHINE (STL-PB-MA) Negative ng/mL FENTANYL (STL-PB) Negative ng/mL Aug 25, 2024 02:03 PM [facility] URINE DRUG SCREEN (STL) URINE Specimen Type: URINE Comment: The cut-off value for Fentanyl was laboratory developed and its performance characteristics confirmed by the [facility] laboratory thru method comparison with reference laboratory and medication chart review. The laboratory is regulated under CLIA as qualified to perform high-complexity testing. Fentanyl is used for clinical purposes in conjunction with other laboratory tests. Ordering Provider: DANIEL GOMEZ Report Released Date/Time: Aug 24, 2024 07:24 PM Reporting Lab: [facility] [address] [place] [phone] Performing Lab: [facility] [address] [facility] [address] ETHANOL Negative mg/dL 0-20 AMPHET/METHAMPHETAMINE Negative ng/mL COCAINE METABOLITES Negative ng/mL BENZODIAZEPINES (STL) Negative ng/mL CANNABINOIDS POSITIVE ng/mL METHADONE Negative ng/mL OPIATES Negative ng/mL CREATININE URINE/OTHERS 39.0 mg/dL L 47-11 0 OXYCODONE (IZEEH-DCQ-DI) Negative ng/mL BUPRENORPHINE (STL-PB-MA) Negative ng/mL FENTANYL (STL-PB) Negative ng/mL Aug 20, 2024 07:13 AM [facility] URINALYSIS W/ CX REFLEX (STL-PB) URINE Specim en Type: URINE No comment entered. Ordering Provider: DANIEL GOMEZ Report Released Date/Time: Aug 19, 2024 11:04 AM Reporting Lab: [facility] [address] Performing Lab: [facility] [address] URINE COLOR Yellow Yellow U.BILIRUBIN Negative mg/dL [...] GRAVITY 1.028 Aug 19, 2024 10:08 AM [facility] URINALYSIS (STL-PB) URINE Specimen Type: URIN E No comment entered. Ordering Provider: DANIEL GOMEZ Report Released Date/Time: Aug 16, 2024 03:45 PM Reporting Lab: [facility] [address] Performing Lab: [facility] [place] [address] URINE COLOR Yellow Yellow U.BILIRUBIN Negative mg/dL [...] 1.035 H Aug 19, 2024 10:08 AM [facility] TEST URINE (MA-STL) URINE Specimen Type: URINE No comment entered. Ordering Provider: DANIEL GOMEZ Report Released Date/Time: Aug 16, 2024 03:45 PM Reporting Lab: [facility] [place] [address] Performing Lab: [facility] [place] [address] Qualitative Test NEG NEGAT URBAN Aug 19, 2024 10:08 AM [facility] URINE DRUG SCREEN (STL) URINE Specimen Type: URINE Comment: The cut-off value for Fentanyl was laboratory developed and its performance characteristics confirmed by the [facility] laboratory thru method comparison with reference laboratory and medication chart review. The laboratory is regulated under CLIA as qualified to perform high-complexity testing. Fentanyl is used for clinical purposes in conjunction with other laboratory tests. Ordering Provider: DANIEL GOMEZ Report Released Date/Time: Aug 16, 2024 03:45 PM Reporting Lab: [facility] [place] [address] Performing Lab: [facility] [place] [address] ETHANOL Negative mg/dL 0-20 AMPHET/METHAMPHETAMINE Negative ng/mL COCAINE METABOLITES Negative ng/mL BENZODIAZEPINES (STL) Negative ng/mL CANNABINOIDS POSITIVE ng/mL METHADONE Negative ng/mL OPIATES POSITIVE ng/mL CREATININE URINE/OTHERS 266.1 mg/dL H 47.0 -110.0 OXYCODONE (PRGIJ-ZKZ-SJ) Negative ng/mL BUPRENORPHINE (STL-PB-MA) Negative ng/mL FENTANYL (STL-PB) Negative ng/mL Aug 19, 2024 10:00 AM [facility] CBC BLOOD Specimen Type: BLOOD No comment entered. Ordering Provider: DANIEL GOMEZ Report Released Date/Time: Aug 16, 2024 03:45 PM Reporting Lab: [facility] [address] Performing Lab: [facility] [address] WBC 12.7 10*3/uL H 3.6-11.2 RBC 4.19 [...] 09:59 AM [facility] COMPREHENSIVE METABOLIC PANEL PLASMA Specimen Type: PLASMA Comment: No hemolysis noted. Ordering Provider: DANIEL GOMEZ Report Released Date/Time: Aug 16, 2024 03:45 PM Reporting Lab: [facility] [place] [address] Performing Lab: [facility] [place] [address] CREATININE 0.75 mg/dL 0.60-1.10 UREA NITROGEN 12.0 [...] Lab: [facility] [place] [address] Performing Lab: [facility] [place] [address] PROTIME 9.4 s 9.4-12.5 INR VALUE 0.8 {INR} Aug 19, 2024 09:59 AM [facility] ETHANOL SERUM/PLASMA (STL) PLASMA Specimen Typ e: PLASMA Comment: No hemolysis noted. Ordering Provider: DANILE GOMEZ Report Released Date/Time: Aug 16, 2024 03:45 PM Reporting Lab: [facility] [place] [address] Performing Lab: [facility] [address] ETHANOL SERUM/PLASMA (STL) <10.0 mg/dL 0 -10 Aug 19, 2024 09:59 AM [facility] GGT GAMMA-GT PLASMA Specimen Type: PLASM A No comment entered. Ordering Provider: DANIEL GOMEZ Report Released Date/Time: Aug 16, 2024 03:45 PM Reporting Lab: [facility] [address] [facility] [address] Performing Lab: [facility] [address] [facility] [address] GGT GAMMA-GT 14 [IU]/L 12-64 Aug 19, 2024 09:59 AM [facility] MAGNESIUM PLASMA Specimen Type: PLASM A Comment: No hemolysis noted. Ordering Provider: DANIEL GOMEZ Report Released Date/Time: Aug 16, 2024 03:45 PM Reporting Lab: [facility] [address] Performing Lab: [facility] [address] MAGNESIUM 2.1 mg/dL 1.6-2.6 Aug 19, 2024 09:59 AM [facility] CPK SERUM Specimen Type: SERUM No comment entered. Ordering Provider: DANIEL GOMEZ Report Released Date/Time: Aug 16, 2024 03:45 PM Reporting Lab: [facility] [address] Performing Lab: [facility] [address] CPK 37 U/L 29-168 Aug 19, 2024 09:59 AM [facility] HEP C Ab HCV Ab (STL) SERUM Specimen Type: SE RUM No comment entered. Ordering Provider: DANIEL GOMEZ Report Released Date/Time: Aug 16, 2024 03:45 PM Reporting Lab: [facility] [address] [facility] [address] Performing Lab: [facility] [address] [facility] [address] HEP C Ab HCV Ab (STL) Nonreactive Nonrea ctive Aug 19, 2024 09:59 AM [facility] HIV COMBO FOURTH GENERATION (STL) SERUM Speci men Type: SERUM No comment entered. Ordering Provider: DANIEL GOMEZ Report Released Date/Time: Aug 16, 2024 03:45 PM Reporting Lab: [facility] [address] [facility] [address] Performing Lab: [facility] [address] [facility] [address] HIV COMBO FOURTH GENERATION (STL) Nonreactive Nonreactive Social History: Smoking Status (Most current) and Tobacco Use (All prior to encounter date) This section includes the most current, and the historical, smoking and tobacco- related health factors from the [place] facility where the Encounter took place. Current Smoking Status This section includes the most current smoking, or tobacco-related health factor, from the [place] facility where the Encounter took place. Date/Time Current Smoking Status Comment Nan ity Aug 19, 2024 10:33 AM VA-TOBACCO USE ALFONZO RY DAY CIGARETTES [facility] Tobacco Use History This section includes a history of the smoking, or tobacco-related health factors, that were collected on or before the date of the Encounter. The data comes from the [place] facility where the Encounter took place. 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 Date/Time Encounter Note(s) Provider Source Aug 27, 2024 04:27 PM ADDICTION PSYCHIAT RY NOTE: LOCAL TITLE: [facility] [place] STANDARD TITLE: ADDICTION PSYCHIATRY NOTE DATE OF NOTE: AUG 27, 2024@16:27 ENTRY DATE: AUG 27, 2024@16:27:50 AUTHOR: TOMI ROSAS EXP COSIGNER: URGENCY: STATUS: COMPLETED Case Management GROUP TIME:1315 - 1400 DURATION OF GROUP: 45 MINUTES VETERANS ATTENDIN OBJECTIVE OF GROUP: Discuss aspects of recovery or treatment of concern to veterans. and provide support. INTERVENTIONS: -Conducted needs check with each member -Utilized group dynamic to help Veterans challenge/support one another in recovery -Provided education/support LEVEL OF ENGAGEMENT: Actively engaged. RESPONSE TO INTERVENTION: talked about her struggle to self regulate her emotions and then asked AT if she had any self soothing techinques. A peer offered breathing techniques and suggested walking as some self soothing. AT stated she will print some self soothing techniques for and they can work on them together. PLAN: No measurements were used in this group. RISK ASSESSMENT:[place] was actively engaged in group and did not verbalize any suicidal ideations, plans, thoughts. DIAGNOSIS:Marijuana/Alcoho l/Cocaine/Opioids /es/ TOMI ROSAS Addiction Therapist, LEVI DUONG / THANH Signed: 08/27/2024 16:40 TOMI ROSAS [facility]
--- OUTSIDE RECORDS SUMMARY | 2025-02-23 10:59 | XMS_ITS | Encounter Summary ---
Author Name [facility] Organization [facility] Address [address] [place] [address] Support Name Relationship Address Phone FUAD CHRISTINE [...] MEDIC AID Aug 02, 2015 MEDICAI D [id number] [phone] JENNIFER QUINONES PATIENT [facility] (WNR) MEDICAID MEDIC AID [facility] (WNR) Dec 01, 2023 MEDICAI D [id number] JENNIFER QUINONES PATIENT Selected Encounter This section includes the information on record at MD for the Encounter. Date/Time Encounter Type Encounter Description Reason Provider Source Aug 31, 2024 02:00 PM SELF-MGMT EDUC/TRAIN 5-8 PT SUBSTANCE USE DISORDR GRP ICD-10-CM F11.90 Opioid use, unspecified, uncomplicated IGNACIO TOLBERT IHPeggy Encounter Template Text not used by MD Assessments - Encounter Diagnoses This section includes the primary and secondary diagnoses documented for the Encounter. Date/Time Primary/Secondary Diagnosis Diagnosis Name Provider Source Aug 31, 2024 06:12 PM PRIMARY Opioid use, unspecified, uncomplicated MO TOLBERT [facility] Plan of Treatment: Future Appointments (+ 6 months) and Future Tests (+/- 45 days) The Plan of Treatment section includes future care activities for the patient from all [facility]. This section includes future appointments and future orders which are active, pending or scheduled. Future Appointments This section includes appointments that were scheduled to occur 6 months from the date of the Encounter, up to a maximum of 20 appointments. The data comes from all [facility]. Appointment Date/Time Appointment Type Appointme nt Facility Name Sep 10, 2024 12:30 PM AMBULATORY - PSYCHIATRY [facility] Sep 12, 2024 06:00 PM AMBULATORY - PS[facility]CHIATRY [facility] Sep 17, 2024 06:00 PM AMBULATORY - PSYCHIATRY [facility] Sep 19, 2024 06:00 PM AMBULATORY - PSYCHIATRY [facility] Sep 26, 2024 06:00 PM AMBULATORY - PSYCHIATRY [facility] Oct 01, 2024 02:00 PM AMBULATORY - NONE [facility] Oct 09, 2024 03:00 PM AMBULATORY - MEDICINE [facility] Oct 16, 2024 01:00 PM AMBULATORY - PSYCHIATRY [facility] Oct 30, 2024 01:00 PM AMBULATORY - PSYCHIATRY [facility] Nov 27, 2024 01:00 PM AMBULATORY - PSYCHIATRY [facility] Dec 04, 2024 01:00 PM AMBULATORY - PSYCHIATRY [facility] Dec 11, 2024 01:00 PM AMBULATORY - PSYCHIATRY [facility] Dec 18, 2024 01:00 PM AMBULATORY - PSYCHIATRY [facility] Dec 25, 2024 01:00 PM AMBULATORY - PSYCHIATRY [facility] February 05, 2025 09:30 AM AMBULATORY - PSYCHIATRY [facility] Lab Results: +/- 30 days of [...] its performance characteristics confirmed by the [facility] laboratory thru method comparison with reference laboratory and medication chart review. The laboratory is regulated under CLIA as qualified to perform high-complexity testing. Fentanyl is used for clinical purposes in conjunction with other laboratory tests. Ordering Provider: DANIEL GOMEZ Report Released Date/Time: Sep 02, 2024 08:27 PM Reporting Lab: [facility] [facility] [phone] Performing Lab: [facility] [address] ETHANOL <10.0 mg/dL 0-9 AMPHET/METHAMPHETAMINE Negative ng/mL COCAINE METABOLITES Negative ng/mL BENZODIAZEPINES (STL) Negative ng/mL CANNABINOIDS POSITIVE ng/mL METHADONE Negative ng/mL OPIATES Negative ng/mL CREATININE URINE/OTHERS 110.1 mg/dL H 47.0 -110.0 OXYCODONE (TADZW-[id number]-RT) Negative ng/mL BUPRENORPHINE (STL-PB-MA) Negative ng/mL FENTANYL (STL-PB) Negative ng/mL Aug 25, 2024 02:03 PM [facility] URINE DRUG SCREEN (STL) URINE Specimen Type: URINE Comment: The cut-off value for Fentanyl was laboratory developed and its performance characteristics confirmed by the [facility] laboratory thru method comparison with reference laboratory and medication chart review. The laboratory is regulated under CLIA as qualified to perform high-complexity testing. Fentanyl is used for clinical purposes in conjunction with other laboratory tests. Ordering Provider: DANIEL GOMEZ Report Released Date/Time: Aug 24, 2024 07:24 PM Reporting Lab: [facility] [address] [facility] [phone] Performing Lab: [facility] [address] [facility] [address] ETHANOL Negative mg/dL 0-20 AMPHET/METHAMPHETAMINE Negative ng/mL COCAINE METABOLITES Negative ng/mL BENZODIAZEPINES (STL) Negative ng/mL CANNABINOIDS POSITIVE ng/mL METHADONE Negative ng/mL OPIATES Negative ng/mL CREATININE URINE/OTHERS 39.0 mg/dL L 47-11 0 OXYCODONE (NPBSB-PJS-GG) Negative ng/mL BUPRENORPHINE (STL-PB-MA) Negative ng/mL FENTANYL (STL-PB) Negative ng/mL Aug 20, 2024 07:13 AM [facility] URINALYSIS W/ CX REFLEX (STL-PB) URINE Specim en Type: URINE No comment entered. Ordering Provider: DANIEL GOMEZ Report Released Date/Time: Aug 19, 2024 11:04 AM Reporting Lab: [facility] [place] [phone] Performing Lab: [facility] [place] [address] URINE COLOR Yellow Yellow U.BILIRUBIN Negative mg/dL [...] [facility] URINALYSIS (STL-PB) URINE Specimen Type: URIN E No comment entered. Ordering Provider: DANIEL GOMEZ Report Released Date/Time: Aug 16, 2024 03:45 PM Reporting Lab: [facility] [address] Performing Lab: [facility] [place] [address] URINE COLOR Yellow Yellow U.BILIRUBIN Negative mg/dL [...] 2024 03:45 PM Reporting Lab: [facility] [address] Performing Lab: [facility] [facility] [phone] Qualitative Test NEG NEGAT URBAN Aug 19, 2024 10:08 AM [facility] URINE DRUG SCREEN (STL) URINE Specimen Type: URINE Comment: The cut-off value for Fentanyl was laboratory developed and its performance characteristics confirmed by the [facility] laboratory thru method comparison with reference laboratory and medication chart review. The laboratory is regulated under CLIA as qualified to perform high-complexity testing. Fentanyl is used for clinical purposes in conjunction with other laboratory tests. Ordering Provider: DANIEL GOMEZ Report Released Date/Time: Aug 16, 2024 03:45 PM Reporting Lab: [facility] [phone] Performing Lab: [facility] [address] ETHANOL Negative mg/dL 0-20 AMPHET/METHAMPHETAMINE Negative ng/mL COCAINE METABOLITES Negative ng/mL BENZODIAZEPINES (STL) Negative ng/mL CANNABINOIDS POSITIVE ng/mL METHADONE Negative ng/mL OPIATES POSITIVE ng/mL CREATININE URINE/OTHERS 266.1 mg/dL H 47.0 -110.0 OXYCODONE (XSFFP-PTS-LJ) Negative ng/mL BUPRENORPHINE (STL-PB-MA) Negative ng/mL FENTANYL (STL-PB) Negative ng/mL Aug 19, 2024 10:00 AM [facility] CBC BLOOD Specimen Type: BLOOD No comment entered. Ordering Provider: DANIEL GOMEZ Report Released Date/Time: Aug 16, 2024 03:45 PM Reporting Lab: [facility] [address] Performing Lab: [facility] [place] [phone] WBC 12.7 10*3/uL H 3.6-11.2 RBC 4.19 [...] 2024 03:45 PM Reporting Lab: [facility] [facility] [address] Performing Lab: [facility] [place] [phone] CREATININE 0.75 mg/dL 0.60-1.10 UREA NITROGEN 12.0 [...] 19, 2024 09:59 AM [facility] PT/INR NEW (STL-MA) PLASMA Specimen Type: PLAS MA No comment entered. Ordering Provider: DAINEL GOMEZ Report Released Date/Time: Aug 16, 2024 03:45 PM Reporting Lab: [facility] [place] [address] Performing Lab: [facility] [place] [address] PROTIME 9.4 s 9.4-12.5 INR VALUE 0.8 {INR} Aug 19, 2024 09:59 AM [facility] ETHANOL SERUM/PLASMA (STL) PLASMA Specimen Typ e: PLASMA Comment: No hemolysis noted. Ordering Provider: DANIEL GOMEZ Report Released Date/Time: Aug 16, 2024 03:45 PM Reporting Lab: [facility] [facility] [address] Performing Lab: [facility] [facility] [address] ETHANOL SERUM/PLASMA (STL) <10.0 mg/dL 0 -10 Aug 19, 2024 09:59 AM [facility] GGT GAMMA-GT PLASMA Specimen Type: PLASM A No comment entered. Ordering Provider: DANIEL GOMEZ Report Released Date/Time: Aug 16, 2024 03:45 PM Reporting Lab: [facility] [address] [facility] [address] Performing Lab: [facility] [address] [facility] [address] GGT GAMMA-GT 14 [IU]/L 12-64 Aug 19, 2024 09:59 AM [facility] MAGNESIUM PLASMA Specimen Type: PLASM A Comment: No hemolysis noted. Ordering Provider: DANIEL GOMEZ Report Released Date/Time: Aug 16, 2024 03:45 PM Reporting Lab: [facility] [facility] [address] Performing Lab: [facility] [facility] [address] MAGNESIUM 2.1 mg/dL 1.6-2.6 Aug 19, 2024 09:59 AM [facility] CPK SERUM Specimen Type: SERUM No comment entered. Ordering Provider: DANIEL GOMEZ Report Released Date/Time: Aug 16, 2024 03:45 PM Reporting Lab: [facility] [facility] [address] Performing Lab: [facility] [facility] [address] CPK 37 U/L 29-168 Aug 19, 2024 09:59 AM [facility] HIV COMBO FOURTH GENERATION (STL) SERUM Speci men Type: SERUM No comment entered. Ordering Provider: DANIEL GOMEZ Report Released Date/Time: Aug 16, 2024 03:45 PM Reporting Lab: [facility] [address] [facility] [address] Performing Lab: [facility] [address] [facility] [address] HIV COMBO FOURTH GENERATION (STL) Nonreactive Nonreactive Aug 19, 2024 09:59 AM [facility] HEP C Ab HCV Ab (STL) SERUM Specimen Type: SE RUM No comment entered. Ordering Provider: DANIEL GOMEZ Report Released Date/Time: Aug 16, 2024 03:45 PM Reporting Lab: [facility] [address] [facility] [address] Performing Lab: [facility] [address] [facility] [address] HEP C Ab HCV Ab (STL) Nonreactive Nonrea ctive Encounter Notes: All associated encounter notes This section contains the clinical notes associated to the Encounter. Date/Time Encounter Note(s) Provider Source Aug 31, 2024 02:00 PM PSYCHIATRY GROUP C GURPREET NOTE: LOCAL TITLE: [facility] PSYCHIATRY GROUP NOTE STL STANDARD TITLE: PSYCHIATRY GROUP COUNSELING NOTE DATE OF NOTE: AUG 31, 2024@14:00 ENTRY DATE: AUG 31, 2024@18:08:58 AUTHOR: HUNTER TOLBERT EXP COSIGNER: URGENCY: STATUS: COMPLETED Discipline: Nursing Group Time: 5025-3957 Group Topics: Spirituality Group Content: The veterans attended the tenriism of several of their peers to show support and to observe the spiritual ceremony. While this was an optional group attendance was nearly 100%. After the ceremony many veterans expressed a new interest in the concept of spirituality and its ability to support their recovery. Group Goals: Achieved Patient Response: Actively Engaged Number of Patients in Group: 22 veterans attended this group. /sanjeev/ HUNTER OTLBERT RELIABILITY TECHNICIAN Registered Nurse, [facility] Signed: 08/31/2024 18:16 HUNTER TOLBERT
--- OUTSIDE RECORDS SUMMARY | 2025-02-23 10:59 | XMS_ITS | Encounter Summary ---
Author Name [facility] [place] Organization [facility] [place] Address [address] [place] [address] Support Name Relationship Address Phone FUAD CHRISTINE [...] MEDIC AID Aug 02, 2015 MEDICAI D [id number] [phone] STACIE SHAUNA PATIENT [facility] (WNR) MEDICAID MEDIC AID [facility] (WNR) Dec 01, 2023 MEDICAI D [id number] SHAUNA QUINONES PATIENT Selected Encounter This section includes the information on record at [place] for the Encounter. Date/Time Encounter Type Encounter Description Reason Provider Source Apr 10, 2024 01:00 PM PSYTX W PT 30 MINUTES PTSD OUTPT RES SPEC PROG INDIV ICD-10-CM F43.12 Post-traumatic stress disorder, chronic DOWNING,DAIN INE E IHE Encounter Template Text not used by [place] Assessments - Encounter Diagnoses This section includes the primary and secondary diagnoses documented for the Encounter. Date/Time Primary/Secondary Diagnosis Diagnosis Name Provider Source Apr 10, 2024 02:17 PM PRIMARY Post-traumatic stress disorder, chronic DOWNING,DAIN INE E [facility] Apr 10, 2024 02:17 PM SECONDARY Borderline personality disorder DOWNING,DAIN INE E [facility] Plan of Treatment: Future Appointments (+ 6 months) and Future Tests (+/- 45 days) The Plan of Treatment section includes future care activities for the patient from all [place] [facility] This section includes future appointments and future orders which are active, pending or scheduled. Future Appointments This section includes appointments that were scheduled to occur 6 months from the date of the Encounter, up to a maximum of 20 appointments. The data comes from all [facility]. Appointment Date/Time Appointment Type Appointme nt Facility Name Apr 15, 2024 01:30 PM AMBULATORY - NONE [facility] Apr 23, 2024 10:00 AM AMBULATORY - PSYCHIATRY [facility] Apr 23, 2024 11:00 AM AMBULATORY - PSYCHIATRY [facility] Apr 23, 2024 01:00 PM AMBULATORY - PSYCHIATRY [facility] May 22, 2024 11:00 AM AMBULATORY - PSYCHIATRY [facility] Sep 10, 2024 12:30 PM AMBULATORY - PSYCHIATRY [facility] Sep 12, 2024 06:00 PM AMBULATORY - PSYCHIATRY [facility] Sep 17, 2024 06:00 PM AMBULATORY - PSYCHIATRY [facility] Sep 19, 2024 06:00 PM AMBULATORY - PSYCHIATRY [facility] Sep 26, 2024 06:00 PM AMBULATORY - PSYCHIATRY [facility] Oct 01, 2024 02:00 PM AMBULATORY - NONE [facility] Oct 09, 2024 03:00 PM AMBULATORY - MEDICINE [facility] Active, Pending, and Scheduled Orders This section includes a listing of several types of active, pending, and scheduled orders, including clinic medications orders, diagnostic test orders, procedure orders and consult orders; where the start date of the order is 45 days before the date of the Encounter or 45 days after the date of theEncounter. The data comes from all [facility]. Test Date/Time Test Type Test Details Facility Name Mar 22, 2024 12:00 AM Laboratory - Chemistry Order CBC BLOOD SP [facility] Mar 22, 2024 12:00 AM Laboratory - Chemistry Order TSH W/ REFLEX FT4 (STL) GREEN LI-HEP PLASMA SP [facility] Mar 22, 2024 12:00 AM Laboratory - Chemistry Order VITAMIN D, 25-HYDROXY GOLD/RED SST SERUM SP [facility] Mar 22, 2024 12:00 AM Laboratory - Chemistry Order HGA1C BLOOD SP [facility] Mar 22, 2024 12:00 AM Laboratory - Chemistry Order COMPREHENSIVE METABOLIC PANEL GREEN LI/HEP BLD/PLAS PLASMA SP [facility] Mar 22, 2024 12:00 AM Laboratory - Chemistry Order LIPID PANEL (STL) GREEN LI/HEP BLD/PLAS PLASMA SP ONCE [facility] Mar 22, 2024 12:00 AM Laboratory - Chemistry Order TEST URINE (MA-STL) URINE YELLOW SP [facility] Encounter Notes: All associated encounter notes This section contains the clinical notes associated to the Encounter. Date/Time Encounter Note(s) Provider Source Apr 11, 2024 07:56 AM ADDENDUM: LOCAL TITLE: Addendum STANDARD TITLE: ADDENDUM DATE OF NOTE: APR 11, 2024@07:56:35 ENTRY DATE: APR 11, 2024@07:56:36 AUTHOR: TD MORTENSEN EXP COSIGNER: URGENCY: STATUS: COMPLETED Will add to [facility] meeting to discuss request for follow up consult. /sanjeev/ TD BOYD, RN-BC REGISTERED NURSE Signed: 04/11/2024 07:57 Receipt Acknowledged By: 04/11/2024 10:53 /sanjeev/ Zamzam Moffett M.D. Staff Physician [facility] === --- Original Document --- 04/10/24 TRP PSYCHOTHERAPY STL: PCT Psychotherapy Tracking Today's psychotherapy session was part of a standardized episode of Cognitive Processing Therapy (CPT) Episode of Care: This is the last session. PATIENT: Shauna Quinones GENDER: Female AGE: 38 DATE OF : [birth year] Service Connected: NO VISIT DATE: 04/10/24 Visit Time: 1:30pm ( arrived late and was accommodated) This session was scheduled for [facility] but due to technical issues, it was reverted to phone with 's consent. Deanne was observed to be in a private, appropriate place for session and confirmed her address. 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 She expressed knowledge of how to access emergency services ([place] Crisis Line, 911, ER) and willingness to do so, should the need arise. She is considered sustainable as an outpatient. SESSION CONTENT: Deanne has been engaged in CPT with this lyric writer, she had missed several sessions recently. This was a planned final session. [place] had completed CBW worksheets, lyric writer and reviewed completed HW. noted she had been able to effectively self-challenge her negative beliefs in her worksheets. She noted the worksheets had been very helpful. The had completed impact statement, she noted no self-blame for the MST, feeling that the MST had been acknowledged in the course of treatment, and improvement in learned skills for cognitive challenging. She noted being able to recognize black and white thinking, that my feelings are not facts, as particular skills. The also noted improvement in adaptive beliefs related to trust, men. Supportability Engineer and reviewed progress in treatment, highlighting 's significant reported benefit. reported feeling she had accomplished Tx goals. Supportability Engineer and discussed relapse prevention, particularly continued use of worksheets. [place] reported goal of focusing on decreasing use of marijuana and cigarettes at this time, alerting [facility]. VETERANS CURRENT GOALS FOR TREATMENT (as part of shared decision-making) Treatment goal in the Veterans own words: 1. to be able to haver healthy coping skills besides smoking weed 2. not let it control my life, want it to be managed PROGRESS: As noted above, the reported significant progress, particularly related to second stated treatment goal. In addition, she reports no self- blame for trauma, improved nightmares, improved negative cognitions related to trust, safety, esteem related to the MST. PLAN completed treatment on this date. She reported interest in treatment focused on her use of marijuana and cigarettes. reports being open to a group to address this, alerting [facility] about interest in psychotherapy services to focus on this. [place] was encouraged to contact this lyric writer should her treatment needs change in the future. She expressed knowledge and understanding of this plan and has this lyric writer's contact information. /saravanan [employer] Programmer, CYTOTECHNOLOGIST SUPERVISOR, [facility] Signed: 04/10/2024 14:17 Receipt Acknowledged By: 04/11/2024 10:41 /saravanan BOYD, RN-BC REGISTERED NURSE 04/11/2024 10:49 /saravanan Moffett M.D. Staff Physician [facility] Apr 10, 2024 02:17 PM MENTAL HEALTH NOTE : LOCAL TITLE: [facility] EPISODE OF CARE ST STANDARD TITLE: MENTAL HEALTH NOTE DATE OF NOTE: APR 10, 2024@14:17 ENTRY DATE: APR 10, 2024@14:17:29 AUTHOR: TUTU BOLES EXP COSIGNER: URGENCY: STATUS: COMPLETED [place] completed Tx on this date, see TRP psychotherapy note from this date. reports significant progress on treatment goals, completed CPT. is established BHIP patient and reports desire for Tx focused on her marijuana and cigarette use. At this time no further action is planned by this lyric writer unless contacted by or referring provider. /saravanan [employer] Programmer, CYTOTECHNOLOGIST SUPERVISOR, [facility] Signed: 04/10/2024 14:18 Receipt Acknowledged By: 04/10/2024 14:48 /saravanan Concepcion, Ph.D., ABPP Psychologist, [facility] 04/10/2024 21:53 /saravanan BOYD, RN-BC REGISTERED NURSE 04/10/2024 17:06 /saravanan Moffett M.D. Staff Physician [facility] TUTU BLANCO [facility] Apr 10, 2024 02:03 PM PSYCHOLOGY NOTE: LOCAL TITLE: TRP PSYCHOTHERAPY [facility] STANDARD TITLE: PSYCHOLOGY NOTE DATE OF NOTE: APR 10, 2024@14:03 ENTRY DATE: APR 10, 2024@14:03:45 AUTHOR: TUTU BOLES COSIGNER: URGENCY: STATUS: COMPLETED TRP PSYCHOTHERAPY STL Has ADDENDA PCT Psychotherapy Tracking Today's psychotherapy session was part of a standardized episode of Cognitive Processing Therapy (CPT) Episode of Care: This is the last session. PATIENT: Shauna Quinones GENDER: Female AGE: 38 DATE OF : [birth year] Service Connected: NO VISIT DATE: 04/10/24 Visit Time: 1:30pm ( arrived late and was accommodated) This session was scheduled for [facility] but due to technical issues, it was reverted to phone with 's consent. [place] was observed to be in a private, appropriate place for session and confirmed her address. 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 She expressed knowledge of how to access emergency services ('s Crisis Line, 911, ER) and willingness to do so, should the need arise. She is considered sustainable as an outpatient. SESSION CONTENT: [place] has been engaged in CPT with this lyric writer, she had missed several sessions recently. This was a planned final session. had completed CBW worksheets, lyric writer and reviewed completed HW. noted she had been able to effectively self-challenge her negative beliefs in her worksheets. She noted the worksheets had been very helpful. The had completed impact statement, she noted no self-blame for the MST, feeling that the MST had been acknowledged in the course of treatment, and improvement in learned skills for cognitive challenging. She noted being able to recognize black and white thinking, that my feelings are not facts, as particular skills. The also noted improvement in adaptive beliefs related to trust, men. Supportability Engineer and reviewed progress in treatment, highlighting 's significant reported benefit. [place] reported feeling she had accomplished Tx goals. Supportability Engineer and discussed relapse prevention, particularly continued use of worksheets. [place] reported goal of focusing on decreasing use of marijuana and cigarettes at this time, alerting [facility]. VETERANS CURRENT GOALS FOR TREATMENT (as part of shared decision-making) Treatment goal in the Veterans own words: 1. to be able to haver healthy coping skills besides smoking weed 2. not let it control my life, want it to be managed PROGRESS: As noted above, the reported significant progress, particularly related to second stated treatment goal. In addition, she reports no self- blame for trauma, improved nightmares, improved negative cognitions related to trust, safety, esteem related to the MST. PLAN [place] completed treatment on this date. She reported interest in treatment focused on her use of marijuana and cigarettes. reports being open to a group to address this, alerting [facility] about interest in psychotherapy services to focus on this. was encouraged to contact this lyric writer should her treatment needs change in the future. She expressed knowledge and understanding of this plan and has this lyric writer's contact information. /sanjeev/ TUTU [employer] Programmer, CYTOTECHNOLOGIST SUPERVISOR, [facility] Signed: 04/10/2024 14:17 Receipt Acknowledged By: 04/11/2024 10:41 /sanjeev/ TD BOYD, RN-BC REGISTERED NURSE 04/11/2024 10:49 /sanjeev/ Zamzam Moffett M.D. Staff Physician [facility] 04/11/2024 ADDENDUM STATUS: COMPLETED Will add to [facility] meeting to discuss request for follow up consult. /saravanan BOYD, RN-BC REGISTERED NURSE Signed: 04/11/2024 07:57 Receipt Acknowledged By: * AWAITING SIGNATURE * SHARONA MOFFETT [facility]
--- OUTSIDE RECORDS SUMMARY | 2025-02-23 10:59 | XMS_ITS | Encounter Summary ---
Author Name [facility] [place] Address [address] [place] [address] Support Name Relationship Address Phone MERIDA CHRISTINE [...] MEDIC AID Aug 02, 2015 MEDICAI D [id number] [phone] JENNIFER QUINONES PATIENT [facility] (WNR) MEDICAID MEDIC AID [facility] (WNR) Dec 01, 2023 MEDICAI D [id number] JENNIFER QUINONES PATIENT Selected Encounter This section includes the information on record at [place] for the Encounter. Date/Time Encounter Type Encounter Description Reason Pro vider Source Nov 08, 2024 04:08 PM Outpatient Encounter ADMIN PAT ACTIVTIES (MASNONCT) IHE Encounter Template Text not used by [place] Plan of Treatment: Future Appointments (+ 6 months) and Future Tests (+/- 45 days) The Plan of Treatment section includes future care activities for the patient from all [place] treatmentfacilities. This section includes future appointments and future orders which are active, pending or scheduled. Future Appointments This section includes appointments that were scheduled to occur 6 months from the date of the Encounter, up to a maximum of 20 appointments. The data comes from all [place] treatment facilities. Appointment Date/Time Appointment Type Appointme nt Facility Name Nov 27, 2024 01:00 PM AMBULATORY - PSYCHIATRY [facility] Dec 04, 2024 01:00 PM AMBULATORY - PSYCHIATRY [facility] Dec 11, 2024 01:00 PM AMBULATORY - PSYCHIATRY [facility] Dec 18, 2024 01:00 PM AMBULATORY - PSYCHIATRY [facility] Dec 25, 2024 01:00 PM AMBULATORY - PSYCHIATRY [facility] February 05, 2025 09:30 AM AMBULATORY - PSYCHIATRY [facility] Apr 02, 2025 02:30 PM AMBULATORY - NONE [facility] Social History: Smoking Status (Most current) and Tobacco Use (All prior to encounter date) This section includes the most current, and the historical, smoking and tobacco- related health factors from the [place] facility where the Encounter took place. Current Smoking Status This section includes the most current smoking, or tobacco-related health factor, from the [place] facility where the Encounter took place. Date/Time Current Smoking Status Comment Nan ity Aug 19, 2024 10:33 AM VA-TOBACCO USE ALFONZO RY DAY CIGARETTES [facility] Tobacco Use History This section includes a history of the smoking, or tobacco-related health factors, that were collected on or before the date of the Encounter. The data comes from the [place] facility where the Encounter took place. Date/Time Smoking Status/Tobacco Use Comment F acility Aug 19, 2024 10:33 AM VA-TOBACCO SCREEN FOLLOW-UP [facility] Aug 19, 2024 10:33 AM VA-TOBACCO USE ADVICE [facility] Aug 19, 2024 10:33 AM VA-TOBACCO USE [place] DRIVER NO [facility] Aug 19, 2024 10:33 AM VA-TOBACCO USE ALFONZO RY DAY CIGARETTES [facility] Aug 19, 2024 10:33 AM VA-TOBACCO USE MED YES [facility] Aug 19, 2024 10:33 AM VA-TOBACCO USE WI 30 MIN OF WAKEUP [facility] Encounter Notes: All associated encounter notes This section contains the clinical notes associated to the Encounter. Date/Time Encounter Note(s) Provider Source Nov 08, 2024 04:08 PM PHARMACY PROGRESS NOTE: LOCAL TITLE: PHARMACY GENERAL ST STANDARD TITLE: PHARMACY PROGRESS NOTE DATE OF NOTE: NOV 08, 2024@16:08 ENTRY DATE: NOV 08, 2024@16:08:40 AUTHOR: TC BERKOWITZ COSIGNER: URGENCY: STATUS: COMPLETED pt requesitng refill on nicotine products (gum and 21 mg patches) /sanjeev/ TC BERKOWITZ Pharmacist Signed: 11/08/2024 16:10 Receipt Acknowledged By: 11/12/2024 10:12 /sanjeev/ Zamzam March M.D. Staff Physician [facility] TC [facility]
--- OUTSIDE RECORDS SUMMARY | 2025-02-23 10:59 | XMS_ITS | Clinical Summary ---
Author Organization [facility] Address [address] [place] [id number] Care Team Providers Care Game Operator Name Role Phone Liz Crandall Unavailable [phone] Merritt Gaines PT Unavailable Unavailable Daniel, Gita Coleman WRAPPER DIPPER Primary Care Provider [phone] Allergies Active Allergy Reactions Criticality Noted Date Comments Fluconazole Hives Medium 06/13/2023 Sulfamethoxazole-Trimet hoprim Swelling,Other (See comments) Medium Reaction: SWELLING, Reaction: Swelling, Trimethoprim Unknown Medications citalopram (CeleXA) 40 mg tablet take 1 tablet by oral route every day 0 0 01/27/20 16 Active atomoxetine (STRATTERA) 40 mg capsule Take 1 capsule (40 mg total) by mouth daily 09/01/20 23 Active ibuprofen (ADVIL,MOTRIN) 600 mg tablet Take 1 tablet (600 mg total) by mouth every 6 (six) hours as needed for pain (pain) 40 tablet 1 08/10/20 24 Active HYDROcodone-ac etaminophen (NORCO) 5-325 mg per tabletIndicati ons:Pain Take 1 tablet by mouth every 8 (eight) hours as needed for pain 10 tablet 09/14/20 24 Active predniSONE (DELTASONE) 50 mg tablet Take 1 tablet (50 mg) by mouth daily 4 tablet 02/03/20 25 Active albuterol HFA (PROVENTIL HFA,VENTOLIN HFA,PROAIR HFA) 90 mcg/actuation inhaler Inhale 2 puffs every 4 (four) hours as needed for wheezing or shortness of breath 8 g 02/03/20 25 026 Active azithromycin (ZITHROMAX) 500 mg tablet 1 tab qhs for 3 days 3 tablet 09/14/20 24 025 Discontinued azithromycin (ZITHROMAX) 250 mg tablet Take 2 tablets (500 mg total) by mouth daily for 1 day, THEN 1 tablet (250 mg total) daily for 4 days. 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 I discussed that endometriosis is not excluded as well. Given the chronicity of her plate pain for over a year in her pelvis and her menorrhagia I have recommended proceeding with a TLH, bilateral salpingectomy. She originally had wanted to do a Mirena IUD but declined. She can not take estrogen with her smoking. I feel hysterectomy would be a better choice than an ablation given her pain symptoms. More minimally invasive options also discussed including laparoscopy without hysterectomy. Patient would like to be scheduled for hysterectomy while she is considering. Nature of procedure and recovery discussed. I have discussed benefits, alternatives and risks including bleeding, infection, anesthesia risk, risk of injury to bowel, bladder, ureter or blood vessel. Patient wishes to schedule. Right lower quadrant abdominal pain 08/27/2019 Psoriatic arthritis 06/26/2017 Psoriasis 06/26/2017 High risk medication use 06/26/2017 Rash 06/26/2017 Arthralgia 05/11/2017 Pain in both hands 05/11/2017 Low vitamin D level 05/11/2017 Encounters Date Type Department Care Team Description 02/02/2025 2:32 AM CDT - 02/02/2025 6:02 AM CDT [facility] Emergency Department [address] [place] [id number] Clem Grande DO Bronchitis (Primary Dx) Discharge Disposition: Discharge to home or self care from Last 3 Months Surgical History Surgery Date Site/Laterality Comments TUBAL LIGATION CHOLECYSTECTOMY Medical History Medical History Date Comments Hx Other Medical psoriasis; Comm ents: ZINA 01/27/2016 - Hx Other Medical gallbladder rem ingrid; Comments: ZINA 01/27/2016 - Depression Depression Family History Medical History Relation Name Comments Breast cancer Mother Rheum arthritis Mother Rheumatoid a rthritis; Relation Name Status Comments Mother Social History Tobacco Use Types Packs/Day Years Used Date Smoking Tobacco: Every Day Cigarettes Smokeless Tobacco: Never Tobacco Cessation:Ready to Q uit: No; Counseling Given: Yes Alcohol Use Standard Drinks/Week Comments No 0 (1 standard drink = 0.6 oz pur e alcohol) PHQ-2 Answer Date Recorded PHQ-2 Total Score (If total score is 3 or more points, staff should administer the PHQ-9) 0 10/03/2023 Personal Safety Answer Date Recorded Have you ever been in or are you currently in a harmful physical or emotional relationship or is someone making you feel afraid or unsafe? 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 Gender Identity Not on file Sexual Orientation Not on file Obstetrics History Para Term AB IAB SAB Ectopic Multiple Livin g Live Births 3 3 3 3 3 Date Outcome GA Total Labor Labor/2nd/3rd Weight Sex Type Anes PTL Toma A1 A5 Name Clin 04/20 10 Term 3.147 kg (6 lb 15 oz) F Vag-S pont Epidura l Living 08/21 13 Term 3.147 kg (6 lb 15 oz) F Vag-S pont Epidura l Living 03/21 15 Term 3.912 kg (8 lb 10 oz) M Vag-S pont Epidura l Living Last Filed Vital Signs Vital Sign Reading Time Taken Comments Blood Pressure 115/64 02/02/2025 5:55 AM CDT Pulse 84 02/02/2025 5:55 AM CDT Temperature 36.9 C (98.5 F) 02/02/2025 2:01 AM CDT Respiratory Rate 18 02/02/2025 5:55 AM CDT Oxygen Saturation 95% 02/02/2025 5:55 AM CDT Inhaled Oxygen Concentration - - Weight 88.6 kg (195 lb 5.2 oz) 02/02/2025 2:01 A M CDT Height 167.6 cm (5' 6) 02/02/2025 2:01 AM CDT Body Mass Index 31.53 02/02/2025 2:01 AM CDT Plan of Treatment Health Maintenance Due Date Last Done Comments Varicella Vaccines (1 of 2 - 13+ 2-dose series) 1999 Hepatitis B Screening 2004 Pneumococcal vaccine <65 (1 of 2 - PCV) 2005 DTaP/Tdap/Td Vaccine (2 - Td or Tdap) 12/10/2017 12/11/2007 Cervical Cancer Screening 06/13/20242022, 12/08/2020, 12/04/2019 Regular Well Visit/Exam 18-64 06/13/2024, 12/08/2020, 12/04/2019 Depression Screening 10/03/2024 10/03/2023, 12/08/2020 Influenza Vaccine (Season Ended) 2025 10/02/2016, 12/11/2007 Hepatitis C Screening Completed 01/27/2016 HPV Vaccines Aged Out No longer eligi ble based on patient's age to complete this topic Procedures Procedure Name Priority Date/Time Associated Diagnosis Comments XR CHEST PA LATERAL 2 VIEWS ED 02/02/2025 2:14 AM CDT PAP AND HPV, REFLEX TO HPV GENOTYPES Routine 06/13/2023 11:49 AM CDT Encounter for gynecological examination with abnormal finding Screening examination for STD (sexually transmitted disease) SERUM HEPATITIS C AB Routine 01/27/2016 12:26 PM CDT from Last 3 Months or Most Recently Relevant to Health Maintenance Results * XR Chest PA Lateral 2 Views (02/02/2025 2:14 AM CDT) Anatomical Region Laterality Modality Body, Chest N/A Computed Radiogr aphy 02/02/2025 3:01 AM CDT Narrative 02/02/2025 3:02 AM CDT EXAM DESCRIPTION: XR CHEST PA LATERAL 2 VIEWS REASON FOR STUDY: wheezing SOB x yesterday with harsh non -productive cough with expiratory wheezing in all lobes. Hx of asthma and bronchitis. Attempted to use nebulizer at home without relief and out of rescue inhaler. Refused resp.swab in triage. TECHNIQUE: Frontal and lateral radiographic views of the chest acquired. COMPARISON: Chest x-ray of August 12, 2024. FINDINGS: LUNGS/PLEURA: No focal consolidation or pneumothorax. No pleural effusion. There is no significant change as compared to previous study. HEART/MEDIASTINUM: Cardiac silhouette is normal. Remaining mediastinal silhouettes are unremarkable. HARDWARE/LINES/TUBES: None. BONES: No acute findings. IMPRESSION: No acute cardiopulmonary abnormality. THIS IS AN ELECTRONICALLY VERIFIED FINAL REPORT 02/02/2025 3:02 AM - Electronically signed by Morena Dior M.D. SN: SN Report ID: [id number] Reading Location: [id number] Procedure Note Morena Dior MD - 02/02/2025 EXAM DESCRIPTION: XR CHEST PA LATERAL 2 VIEWS REASON FOR STUDY: wheezing SOB x yesterday with harsh non -productive cough with expiratory wheezingin all lobes. Hx of asthma and bronchitis. Attempted to use nebulizer at home without relief and out of rescue inhaler. Refused resp.swab in triage. TECHNIQUE: Frontal and lateral radiographic views of the chest acquired. COMPARISON: Chest x-ray of August 12, 2024. FINDINGS: LUNGS/PLEURA: No focal consolidation or pneumothorax. Nopleural effusion. There is no significant change as compared to previous study. HEART/MEDIASTINUM: Cardiac silhouette is normal. Remaining mediastinal silhouettes are unremarkable. HARDWARE/LINES/TUBES: None. BONES: No acute findings. IMPRESSION: No acute cardiopulmonary abnormality. THIS IS AN ELECTRONICALLY VERIFIED FINAL REPORT 02/02/2025 3:02 AM - Electronically signed by Morena Dior M.D. SN: SN Report ID: [id number] Reading Location: [id number] us Samer Ariadna Grande DO IMG XR PROCEDURES Génesis l Result * Pap and HPV, reflex to HPV Genotypes (06/13/2023 11:49 AM CDT) CLINICAL INFORMATION: [facility] Comment:None given LMP [facility] Comment:A Previous Pap [facility] Comment:NONE GIVEN Prev. Bx [facility] Comment:NONE GIVEN SOURCE: [facility] Comment:Cervix, Endocervix Pap, specimen adequacy [facility] Comment: Satisfactory for evaluation. Endocervical/transformation zone component present. Age and/or menstrual status not provided HPV interp [facility] Comment: Cytology Results: Negative for intraepithelial lesion or malignancy. Infection: [facility] Comment: Shift in vaginal constanza suggestive of bacterial vaginosis. Water Quality Specialist [facility] Comment: TLS, CT(ASCP) CT Screening Location: [place] [address] Comment [facility] Comment: EXPLANATORY NOTE: The Pap is a screening test for cervical cancer. It is not a diagnostic test and is subject to false negative and false positive results. It is most reliable when a satisfactory sample, regularly obtained, is submitted with relevant clinical findings and history, and when the Pap result is evaluated along with historic and current clinical information. EFFECTIVE AUGUST 28, 2023, the version of ThinPrep you ordered, commonly known as manual ThinPrep, will be DISCONTINUED. An alternative form of ThinPrep, called ThinPrep Imaging, will continue to be available. For a copy of the client communication (TIS Client Letter) showing TIS test codes, see [email or web address], and navigate to Well-Woman>Physician Materials>TIS Client Letter. You can also call for test code assistance. Human papillomavirus DNA, High Risk E6/E7 Not Detected NOT DETECTED [facility] Comment: Not Detected High Risk HPV types (16,18,31,33,35,39,45,51,52, 56,58,59,66,68) were not detected. Other HPV types which cause anogenital lesions may be present. The significance of the other types of HPV in malignant processes has not been established. Methodology: Real Time PCR Thin prep 06/13/2023 11:4 9 AM CDT 06/14/2023 5:17 AM CDT us Jacinto Freeman MD LAB CYTOLOGY ORDERABLES Fi nal Result [facility] [address] [place] [address] [facility] [address] [facility] [place] [address] * Serum Hepatitis C ab (01/27/2016 12:26 PM CDT) HCV ab Negative Negative HISTORICAL RESULTS Serum 01/27/2016 12:2 6 PM CDT us Althea Hernandez MD LAB BLOOD ORDERABLES Final Resul t HISTORICAL RESULTS from Last 3 Months or Most Recently Relevant to Health Maintenance Insurance [facility] Care Teams Game Operator Relationship Specialty Start Date End Date Gita Daniel NP [address] [place] [address] PCP - General 02/28/21 Liz Crandall PA [address] [place] [address] Physician Engine Repairer Production Internal Medicine 09/13/17 Merritt Gaines PT Physical Therapist Physical Therapy 09/13/17
--- OUTSIDE RECORDS SUMMARY | 2025-02-23 10:59 | XMS_ITS | Encounter Summary ---
Author Name [facility] [place] [facility] [place] [facility] [place] Address [address] [place] [address] Support Name Relationship Address Phone FUAD CHRISTINE [...] MEDIC AID Aug 02, 2015 MEDICAI D [id number] [phone] STACIE JENNIFER PATIENT [facility] (WNR) MEDICAID MEDIC AID [facility] (WNR) Dec 01, 2023 MEDICAI D [id number] JENNIFER QUINONES PATIENT Selected Encounter This section includes the information on record at [place] for the Encounter. Date/Time Encounter Type Encounter Description Reason Provider Source Sep 05, 2024 06:15 PM SELF-MGMT EDUC/TRAIN 5-8 PT SUBSTANCE USE DISORDR GRP ICD-10-CM F12.10 Cannabis abuse, uncomplicated STANLEYDAIN TRONCOSO S IHE Encounter Template Text not used by [facility] Assessments - Encounter Diagnoses This section includes the primary and secondary diagnoses documented for the Encounter. Date/Time Primary/Secondary Diagnosis Diagnosis Name Provider Source Sep 05, 2024 07:27 PM PRIMARY Cannabis abuse, uncomplicated STANLEYVIELKA S [facility] Plan of Treatment: Future Appointments (+ 6 months) and Future Tests (+/- 45 days) The Plan of Treatment section includes future care activities for the patient [facility] [place] [facility] This section includes future appointments and future orders which are active, pending or scheduled. Future Appointments This section includes appointments that were scheduled to occur 6 months from the date of the Encounter, up to a maximum of 20 appointments. The data comes from all [place] treatment facilities. Appointment Date/Time Appointment Type Appointme nt Facility Name Sep 10, 2024 12:30 PM AMBULATORY - PSYCHIATRY [facility] Sep 12, 2024 06:00 PM AMBULATORY - PSYCHIATRY [facility] Sep 17, 2024 06:00 PM AMBULATORY - PSYCHIATRY [facility] Sep 19, 2024 06:00 PM AMBULATORY - PSYCHIATRY [facility] Sep 26, 2024 06:00 PM AMBULATORY - PSYCHIATRY [facility] Oct 01, 2024 02:00 PM AMBULATORY - NONE [facility] Oct 09, 2024 03:00 PM AMBULATORY - MEDICINE [facility] Oct 16, 2024 01:00 PM AMBULATORY - PSYCHIATRY [facility] Oct 30, 2024 01:00 PM AMBULATORY - PSYCHIATRY [facility] Nov 27, 2024 01:00 PM AMBULATORY - PSYCHIATRY [facility] Dec 04, 2024 01:00 PM AMBULATORY - PSYCHIATRY [facility] Dec 11, 2024 01:00 PM AMBULATORY - PSYCHIATRY [facility] Dec 18, 2024 01:00 PM AMBULATORY - PSYCHIATRY [facility] Dec 25, 2024 01:00 PM AMBULATORY - PSYCHIATRY [facility] February 05, 2025 09:30 AM AMBULATORY - PSYCHIATRY [facility] Lab Results: +/- 30 days of the encounter This section includes the Chemistry and Hematology Lab Results on record with [place] for the patient. Radiology Reports and Pathology Reports are provided separately, in subsequent sections. Lab Results This section contains the Chemistry/Hematology Results that were resulted 30 days before or 30 daysafter the date of the Encounter. Date/Time Source Result Type Result - Unit Interpretation Reference Range Specimen Type Comment Sep 03, 2024 12:00 PM [facility] URINE DRUG SCREEN (STL) URINE Specimen Type: URINE Comment: The cut-off value for Fentanyl was laboratory developed and its performance characteristics confirmed by the [facility] laboratory thru method comparison with reference laboratory and medication chart review. The laboratory is regulated under CLIA as qualified to perform high-complexity testing. Fentanyl is used for clinical purposes in conjunction with other laboratory tests. Ordering Provider: DANIEL GOMEZ Report Released Date/Time: Sep 02, 2024 08:27 PM Reporting Lab: [facility] [address] Performing Lab: [facility] [address] ETHANOL <10.0 mg/dL 0-9 AMPHET/METHAMPHETAMINE Negative ng/mL COCAINE METABOLITES Negative ng/mL BENZODIAZEPINES (STL) Negative ng/mL CANNABINOIDS POSITIVE ng/mL METHADONE Negative ng/mL OPIATES Negative ng/mL CREATININE URINE/OTHERS 110.1 mg/dL H 47.0 -110.0 OXYCODONE ([id number]) Negative ng/mL BUPRENORPHINE (STL-PB-MA) Negative ng/mL FENTANYL (STL-PB) Negative ng/mL Aug 25, 2024 02:03 PM [facility] URINE DRUG SCREEN (STL) URINE Specimen Type: URINE Comment: The cut-off value for Fentanyl was laboratory developed and its performance characteristics confirmed by the [facility] laboratory thru method comparison with reference laboratory and medication chart review. The laboratory is regulated under CLIA as qualified to perform high-complexity testing. Fentanyl is used for clinical purposes in conjunction with other laboratory tests. Ordering Provider: DANIEL GOMEZ Report Released Date/Time: Aug 24, 2024 07:24 PM Reporting Lab: [facility] [address] [facility] [address] Performing Lab: [facility] [address] [facility] [address] ETHANOL Negative mg/dL 0-20 AMPHET/METHAMPHETAMINE Negative ng/mL COCAINE METABOLITES Negative ng/mL BENZODIAZEPINES (STL) Negative ng/mL CANNABINOIDS POSITIVE ng/mL METHADONE Negative ng/mL OPIATES Negative ng/mL CREATININE URINE/OTHERS 39.0 mg/dL L 47-11 0 OXYCODONE ([id number]) Negative ng/mL BUPRENORPHINE (STL-PB-MA) Negative ng/mL FENTANYL (STL-PB) Negative ng/mL Aug 20, 2024 07:13 AM [facility] URINALYSIS W/ CX REFLEX (STL-PB) URINE Specim en Type: URINE No comment entered. Ordering Provider: DANIEL GOMEZ Report Released Date/Time: Aug 19, 2024 11:04 AM Reporting Lab: [facility] [place] [address] Performing Lab: [facility] [place] [address] URINE COLOR Yellow Yellow U.BILIRUBIN Negative mg/dL [...] GRAVITY 1.028 Aug 19, 2024 10:08 AM [facility] URINALYSIS (STL-PB) URINE Specimen Type: URIN E No comment entered. Ordering Provider: DANIEL GOMEZ Report Released Date/Time: Aug 16, 2024 03:45 PM Reporting Lab: [facility] [address] Performing Lab: [facility] [place] [address] URINE COLOR Yellow Yellow U.BILIRUBIN Negative mg/dL [...] 1.035 H Aug 19, 2024 10:08 AM [facility] TEST URINE (MA-STL) URINE Specimen Type: URINE No comment entered. Ordering Provider: DANIEL GOMEZ Report Released Date/Time: Aug 16, 2024 03:45 PM Reporting Lab: [facility] [address] Performing Lab: [facility] [address] Qualitative Test NEG NEGAT URBAN Aug 19, 2024 10:08 AM [facility] URINE DRUG SCREEN (STL) URINE Specimen Type: URINE Comment: The cut-off value for Fentanyl was laboratory developed and its performance characteristics confirmed by the [facility] laboratory thru method comparison with reference laboratory and medication chart review. The laboratory is regulated under CLIA as qualified to perform high-complexity testing. Fentanyl is used for clinical purposes in conjunction with other laboratory tests. Ordering Provider: DANIEL GOMEZ Report Released Date/Time: Aug 16, 2024 03:45 PM Reporting Lab: [facility] [address] Performing Lab: [facility] [address] ETHANOL Negative mg/dL 0-20 AMPHET/METHAMPHETAMINE Negative ng/mL COCAINE METABOLITES Negative ng/mL BENZODIAZEPINES (STL) Negative ng/mL CANNABINOIDS POSITIVE ng/mL METHADONE Negative ng/mL OPIATES POSITIVE ng/mL CREATININE URINE/OTHERS 266.1 mg/dL H 47.0 -110.0 OXYCODONE ([id number]) Negative ng/mL BUPRENORPHINE (STL-PB-MA) Negative ng/mL FENTANYL (STL-PB) Negative ng/mL Aug 19, 2024 10:00 AM [facility] CBC BLOOD Specimen Type: BLOOD No comment entered. Ordering Provider: DANIEL GOMEZ Report Released Date/Time: Aug 16, 2024 03:45 PM Reporting Lab: [facility] [address] Performing Lab: [facility] [address] WBC 12.7 10*3/uL H 3.6-11.2 RBC 4.19 [...] 0.00-0. 20 Aug 19, 2024 09:59 AM [facility] COMPREHENSIVE METABOLIC PANEL PLASMA Specimen Type: PLASMA Comment: No hemolysis noted. Ordering Provider: DANIEL GOMEZ Report Released Date/Time: Aug 16, 2024 03:45 PM Reporting Lab: [facility] [address] Performing Lab: [facility] [address] CREATININE 0.75 mg/dL 0.60-1.10 UREA NITROGEN 12.0 [...] 104.44 >60 Aug 19, 2024 09:59 AM [facility] PT/INR NEW (STL-MA) PLASMA Specimen Type: PLAS MA No comment entered. Ordering Provider: DANIEL GOMEZ Report Released Date/Time: Aug 16, 2024 03:45 PM Reporting Lab: [facility] [address] Performing Lab: [facility] [address] PROTIME 9.4 s 9.4-12.5 INR VALUE 0.8 {INR} Aug 19, 2024 09:59 AM [facility] ETHANOL SERUM/PLASMA (STL) PLASMA Specimen Typ e: PLASMA Comment: No hemolysis noted. Ordering Provider: DANIEL GOMEZ Report Released Date/Time: Aug 16, 2024 03:45 PM Reporting Lab: [facility] [address] Performing Lab: [facility] [address] ETHANOL SERUM/PLASMA (STL) <10.0 mg/dL 0 -10 Aug 19, 2024 09:59 AM [facility] GGT GAMMA-GT PLASMA Specimen Type: PLASM A No comment entered. Ordering Provider: DANIEL GOMEZ Report Released Date/Time: Aug 16, 2024 03:45 PM Reporting Lab: [facility] [address] [facility] [address] Performing Lab: [facility] [address] [facility] [address] GGT GAMMA-GT 14 [IU]/L 12-64 Aug 19, 2024 09:59 AM [facility] MAGNESIUM PLASMA Specimen Type: PLASM A Comment: No hemolysis noted. Ordering Provider: DANIEL GOMEZ Report Released Date/Time: Aug 16, 2024 03:45 PM Reporting Lab: [facility] [address] Performing Lab: [facility] [address] MAGNESIUM 2.1 mg/dL 1.6-2.6 Aug 19, 2024 09:59 AM [facility] CPK SERUM Specimen Type: SERUM No comment entered. Ordering Provider: DANIEL GOMEZ Report Released Date/Time: Aug 16, 2024 03:45 PM Reporting Lab: [facility] [address] Performing Lab: [facility] [address] CPK 37 U/L 29-168 Aug 19, 2024 09:59 AM [facility] HIV COMBO FOURTH GENERATION (STL) SERUM Speci men Type: SERUM No comment entered. Ordering Provider: DANIEL GOMEZ Report Released Date/Time: Aug 16, 2024 03:45 PM Reporting Lab: [facility] [address] [facility] [address] Performing Lab: [facility] [address] [facility] [address] HIV COMBO FOURTH GENERATION (STL) Nonreactive Nonreactive Aug 19, 2024 09:59 AM [facility] HEP C Ab HCV Ab (STL) SERUM Specimen Type: SE RUM No comment entered. Ordering Provider: DANIEL GOMEZ Report Released Date/Time: Aug 16, 2024 03:45 PM Reporting Lab: [facility] [address] [facility] [address] Performing Lab: [facility] [address] [facility] [address] HEP C Ab HCV Ab (STL) Nonreactive Nonrea ctive Encounter Notes: All associated encounter notes This section contains the clinical notes associated to the Encounter. Date/Time Encounter Note(s) Provider Source Sep 05, 2024 06:15 PM PSYCHIATRY GROUP COUNSELING NOTE: LOCAL TITLE: S PSYCHIATRY GROUP NOTE [facility] STANDARD TITLE: PSYCHIATRY GROUP COUNSELING NOTE DATE OF NOTE: SEP 05, 2024@18:15 ENTRY DATE: SEP 05, 2024@19:18:08 AUTHOR: STEPHANIE STANLEY EXP COSIGNER: URGENCY: STATUS: [...] Participated meaningfully Number of patients in group: 24 /sanjeev/ STEPHANIE STANLEY Registered NurseTHANH 51E Signed: 09/05/2024 19:29 STEPHANIE STANLEY [facility] THANH
--- OUTSIDE RECORDS SUMMARY | 2025-02-23 10:59 | XMS_ITS | Encounter Summary ---
Author Name [facility] [facility] [place] Address [address] [place] [address] Support Name Relationship Address Phone FUAD CHRISTINE Next of Kin Unknown CHRISTINE MERIDA Emergency Contact Unknown [phone] Insurance Providers: All historical and current Section [...] MEDIC AID Aug 02, 2015 MEDICAI D [id number] [id number] JENNIFER QUINONES PATIENT [facility] (WNR) MEDICAID MEDIC AID [facility] (WNR) Dec 01, 2023 MEDICAI D [id number] JENNIFER QUINONES PATIENT Selected Encounter This section includes the information on record at [place] for the Encounter. Date/Time Encounter Type Encounter Description Reason Provider Source Aug 28, 2024 06:15 PM SELF-MGMT EDUC/TRAIN 5-8 PT SUBSTANCE USE DISORDR GRP ICD-10-CM F14.90 Cocaine use, unspecified, uncomplicated IGNACIO TOLBERT IHPeggy Encounter Template Text not used by [place] Assessments - Encounter Diagnoses This section includes the primary and secondary diagnoses documented for the Encounter. Date/Time Primary/Secondary Diagnosis Diagnosis Name Provider Source Aug 28, 2024 07:12 PM PRIMARY Cocaine use, unspecified, uncomplicated MO TOLBERT [facility] Plan of Treatment: Future Appointments (+ 6 months) and Future Tests (+/- 45 days) The Plan of Treatment section includes future care activities for the patient from [facility] [place] [facility] This section includes future appointments and future orders which are active, pending or scheduled. Future Appointments This section includes appointments that were scheduled to occur 6 months from the date of the Encounter, up to a maximum of 20 appointments. The data comes from all [place] treatment [facility]. Appointment Date/Time Appointment Type Appointme nt Facility Name Sep 10, 2024 12:30 PM AMBULATORY - PSYCHIATRY [facility] Sep 12, 2024 06:00 PM AMBULATORY - PSYCHIATRY [facility] Sep 17, 2024 06:00 PM AMBULATORY - PSYCHIATRY [facility] Sep 19, 2024 06:00 PM AMBULATORY - PSYCHIATRY [facility] Sep 26, 2024 06:00 PM AMBULATORY - PSYCHIATRY [facility] Oct 01, 2024 02:00 PM AMBULATORY - NONE [facility] Oct 09, 2024 03:00 PM AMBULATORY - MEDICINE [facility] Oct 16, 2024 01:00 PM AMBULATORY - PSYCHIATRY [facility] Oct 30, 2024 01:00 PM AMBULATORY - PSYCHIATRY [facility] Nov 27, 2024 01:00 PM AMBULATORY - PSYCHIATRY [facility] Dec 04, 2024 01:00 PM AMBULATORY - PSYCHIATRY [facility] Dec 11, 2024 01:00 PM AMBULATORY - PSYCHIATRY [facility] Dec 18, 2024 01:00 PM AMBULATORY - PSYCHIATRY [facility] Dec 25, 2024 01:00 PM AMBULATORY - PSYCHIATRY [facility] February 05, 2025 09:30 AM AMBULATORY - PSYCHIATRY [facility] Lab Results: +/- 30 [...] Comment Sep 03, 2024 12:00 PM [facility] URINE DRUG SCREEN (STL) URINE Specimen Type: URINE Comment: The cut-off value for Fentanyl was laboratory developed and its performance characteristics confirmed by the [facility] laboratory thru method comparison with reference laboratory and medication chart review. The laboratory is regulated under CLIA as qualified to perform high-complexity testing. Fentanyl is used for clinical purposes in conjunction with other laboratory tests. Ordering Provider: DANIEL GOMEZ Report Released Date/Time: Sep 02, 2024 08:27 PM Reporting Lab: [facility] [facility] [phone] Performing Lab: [facility] [phone] ETHANOL <10.0 mg/dL 0-9 AMPHET/METHAMPHETAMINE Negative ng/mL COCAINE METABOLITES Negative ng/mL BENZODIAZEPINES (STL) Negative ng/mL CANNABINOIDS POSITIVE ng/mL METHADONE Negative ng/mL OPIATES Negative ng/mL CREATININE URINE/OTHERS 110.1 mg/dL H 47.0 -110.0 OXYCODONE ([id number]) Negative ng/mL BUPRENORPHINE (STL-PB-MA) Negative ng/mL FENTANYL (STL-PB) Negative ng/mL Aug 25, 2024 02:03 PM [facility] URINE DRUG SCREEN (STL) URINE Specimen Type: URINE Comment: The cut-off value for Fentanyl was laboratory developed and its performance characteristics confirmed by the [facility] laboratory thru method comparison with reference laboratory and medication chart review. The laboratory is regulated under CLIA as qualified to perform high-complexity testing. Fentanyl is used for clinical purposes in conjunction with other laboratory tests. Ordering Provider: DANIEL GOMEZ Report Released Date/Time: Aug 24, 2024 07:24 PM Reporting Lab: [facility] [address] [facility] [address] Performing Lab: [facility] [address] [facility] [place] [place] [address] ETHANOL Negative mg/dL 0-20 AMPHET/METHAMPHETAMINE Negative ng/mL COCAINE METABOLITES Negative ng/mL BENZODIAZEPINES (STL) Negative ng/mL CANNABINOIDS POSITIVE ng/mL METHADONE Negative ng/mL OPIATES Negative ng/mL CREATININE URINE/OTHERS 39.0 mg/dL L 47-11 0 OXYCODONE ([id number]) Negative ng/mL BUPRENORPHINE (STL-PB-MA) Negative ng/mL FENTANYL (STL-PB) Negative ng/mL Aug 20, 2024 07:13 AM [facility] URINALYSIS W/ CX REFLEX (STL-PB) URINE Specim en Type: URINE No comment entered. Ordering Provider: DANIEL GOMEZ Report Released Date/Time: Aug 19, 2024 11:04 AM Reporting Lab: [facility] [place] [phone] Performing Lab: [facility] [place] [address] URINE COLOR Yellow Yellow U.BILIRUBIN Negative mg/dL [...] 1.028 Aug 19, 2024 10:08 AM [facility] URINALYSIS (STL-PB) URINE Specimen Type: URIN E No comment entered. Ordering Provider: DANIEL GOMEZ Report Released Date/Time: Aug 16, 2024 03:45 PM Reporting Lab: [facility] [facility] [phone] Performing Lab: [facility] [place] [address] URINE COLOR Yellow Yellow U.BILIRUBIN Negative mg/dL [...] H Aug 19, 2024 10:08 AM [facility] TEST URINE (MA-STL) URINE Specimen Type: URINE No comment entered. Ordering Provider: DANIEL GOMEZ Report Released Date/Time: Aug 16, 2024 03:45 PM Reporting Lab: [facility] [facility] [phone] Performing Lab: [facility] [address] [facility] [phone] Qualitative Test NEG NEGAT URBAN Aug 19, 2024 10:08 AM [facility] URINE DRUG SCREEN (STL) URINE Specimen Type: URINE Comment: The cut-off value for Fentanyl was laboratory developed and its performance characteristics confirmed by the [facility] laboratory thru method comparison with reference laboratory and medication chart review. The laboratory is regulated under CLIA as qualified to perform high-complexity testing. Fentanyl is used for clinical purposes in conjunction with other laboratory tests. Ordering Provider: DANIEL GOMEZ Report Released Date/Time: Aug 16, 2024 03:45 PM Reporting Lab: [facility] [facility] [phone] Performing Lab: [facility] [facility] [phone] ETHANOL Negative mg/dL 0-20 AMPHET/METHAMPHETAMINE Negative ng/mL COCAINE METABOLITES Negative ng/mL BENZODIAZEPINES (STL) Negative ng/mL CANNABINOIDS POSITIVE ng/mL METHADONE Negative ng/mL OPIATES POSITIVE ng/mL CREATININE URINE/OTHERS 266.1 mg/dL H 47.0 -110.0 OXYCODONE ([id number]) Negative ng/mL BUPRENORPHINE (STL-PB-MA) Negative ng/mL FENTANYL (STL-PB) Negative ng/mL Aug 19, 2024 10:00 AM [facility] CBC BLOOD Specimen Type: BLOOD No comment entered. Ordering Provider: DANIEL GOMEZ Report Released Date/Time: Aug 16, 2024 03:45 PM Reporting Lab: [facility] [facility] [phone] Performing Lab: [facility] [place] [phone] WBC 12.7 10*3/uL H 3.6-11.2 RBC 4.19 [...] 0.00-0. 20 Aug 19, 2024 09:59 AM [facility] COMPREHENSIVE METABOLIC PANEL PLASMA Specimen Type: PLASMA Comment: No hemolysis noted. Ordering Provider: DANIEL GOMEZ Report Released Date/Time: Aug 16, 2024 03:45 PM Reporting Lab: [facility] [facility] [phone] Performing Lab: [facility] [address] [place] [phone] CREATININE 0.75 mg/dL 0.60-1.10 UREA NITROGEN 12.0 [...] 104.44 >60 Aug 19, 2024 09:59 AM [facility] PT/INR NEW (STL-MA) PLASMA Specimen Type: PLAS MA No comment entered. Ordering Provider: DANIEL GOMEZ Report Released Date/Time: Aug 16, 2024 03:45 PM Reporting Lab: [facility] [place] [address] Performing Lab: [facility] [place] [address] PROTIME 9.4 s 9.4-12.5 INR VALUE 0.8 {INR} Aug 19, 2024 09:59 AM [facility] ETHANOL SERUM/PLASMA (STL) PLASMA Specimen Typ e: PLASMA Comment: No hemolysis noted. Ordering Provider: DANIEL GOMEZ Report Released Date/Time: Aug 16, 2024 03:45 PM Reporting Lab: [facility] [facility] [phone] Performing Lab: [facility] [facility] [phone] ETHANOL SERUM/PLASMA (STL) <10.0 mg/dL 0 -10 Aug 19, 2024 09:59 AM [facility] GGT GAMMA-GT PLASMA Specimen Type: PLASM A No comment entered. Ordering Provider: DANEIL GOMEZ Report Released Date/Time: Aug 16, 2024 03:45 PM Reporting Lab: [facility] [address] [facility] [address] Performing Lab: [facility] [address] [facility] [place] [phone] GGT GAMMA-GT 14 [IU]/L 12-64 Aug 19, 2024 09:59 AM [facility] MAGNESIUM PLASMA Specimen Type: PLASM A Comment: No hemolysis noted. Ordering Provider: DANIEL GOMEZ Report Released Date/Time: Aug 16, 2024 03:45 PM Reporting Lab: [facility] [facility] [phone] Performing Lab: [facility] [facility] [phone] MAGNESIUM 2.1 mg/dL 1.6-2.6 Aug 19, 2024 09:59 AM [facility] CPK SERUM Specimen Type: SERUM No comment entered. Ordering Provider: DANIEL GOMEZ Report Released Date/Time: Aug 16, 2024 03:45 PM Reporting Lab: [facility] [facility] [phone] Performing Lab: [facility] [facility] [phone] CPK 37 U/L 29-168 Aug 19, 2024 09:59 AM [facility] HEP C Ab HCV Ab (STL) SERUM Specimen Type: SE RUM No comment entered. Ordering Provider: DANIEL GOMEZ Report Released Date/Time: Aug 16, 2024 03:45 PM Reporting Lab: [facility] [address] [facility] [place] [phone] Performing Lab: [facility] [address] [facility] [place] [phone] HEP C Ab HCV Ab (STL) Nonreactive Nonrea ctive Aug 19, 2024 09:59 AM [facility] HIV COMBO FOURTH GENERATION (STL) SERUM Speci men Type: SERUM No comment entered. Ordering Provider: DANIEL GOMEZ Report Released Date/Time: Aug 16, 2024 03:45 PM Reporting Lab: [facility] [address] [facility] [phone] Performing Lab: [facility] [address] [facility] [address] HIV COMBO FOURTH GENERATION (STL) Nonreactive Nonreactive Encounter Notes: All associated encounter notes This section contains the clinical notes associated to the Encounter. Date/Time Encounter Note(s) Provider Source Aug 28, 2024 06:15 PM PSYCHIATRY GROUP C GURPREET NOTE: LOCAL TITLE: [facility] PSYCHIATRY GROUP NOTE STL STANDARD TITLE: PSYCHIATRY GROUP COUNSELING NOTE DATE OF NOTE: AUG 28, 2024@18:15 ENTRY DATE: AUG 28, 2024@19:01:23 AUTHOR: HUNTER TOLBERT EXP COSIGNER: URGENCY: STATUS: COMPLETED Discipline: Nursing Group Time: 1814 Group Topics: Handwashing Group Content: The group reviewed proper handwashing techniques using both soap and water and hand gel. After a general discussion on proper technique each provided a return demonstration to reinforce learning. Group Goals: Achieved Patient Response: Actively Engaged Number of Patients in Group: 23 veterans attended this group /sanjeev/ HUNTER TOLBERT MANAGER CANCER Registered Nurse, THANH/Jacquelyn Signed: 08/28/2024 19:17 HUNTER TOLBERT
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
--- OUTSIDE RECORDS SUMMARY | 2025-02-23 10:59 | XMS_ITS | Encounter Summary ---
Author Name [facility] Organization [facility] ([place]) Address [address] [place] [address] Support Name Relationship Address Phone FUAD CHRISTINE Next of Kin Unknown CHRISTINE MERIDA Emergency Contact Unknown [phone] Insurance Providers: All historical and current Section [...] MEDIC AID Aug 02, 2015 MEDICAI D [id number] [phone] JENNIFER QUINONES PATIENT [facility] (WNR) MEDICAID MEDIC AID [facility] (WNR) Dec 01, 2023 MEDICAI D [id number] JENNIFER QUINONES PATIENT Selected Encounter This section includes the information on record at [place] for the Encounter. Date/Time Encounter Type Encounter Description Reason Provider Source Aug 26, 2024 01:15 PM GROUP PSYCHOTHERAPY [facility] ICD-10-CM F12.20 Cannabis dependence, uncomplicated BACKES,SHIKHA Sosa IHE Encounter Template Text not used by [place] Assessments - Encounter Diagnoses This section includes the primary and secondary diagnoses documented for the Encounter. Date/Time Primary/Secondary Diagnosis Diagnosis Name Provider Source Aug 26, 2024 03:15 PM PRIMARY Cannabis dependence, uncomplicated BACKES,LUIS [facility] Plan of Treatment: Future Appointments (+ 6 months) and Future Tests (+/- 45 days) The Plan of Treatment section includes future care activities for the patient from all VA treatmentfacilities. This section includes future appointments and future orders which are active, pending or scheduled. Future Appointments This section includes appointments that were scheduled to occur 6 months from the date of the Encounter, up to a maximum of 20 appointments. The data comes from all [facility]. Appointment Date/Time Appointment Type Appointme nt Facility Name Sep 10, 2024 12:30 PM AMBULATORY - PSYCHIATRY [facility] Sep 12, 2024 06:00 PM AMBULATORY - PSYCHIATRY [facility] Sep 17, 2024 06:00 PM AMBULATORY - PSYCHIATRY [facility] Sep 19, 2024 06:00 PM AMBULATORY - PSYCHIATRY [facility] Sep 26, 2024 06:00 PM AMBULATORY - PSYCHIATRY [facility] Oct 01, 2024 02:00 PM AMBULATORY - NONE [facility] Oct 09, 2024 03:00 PM AMBULATORY - MEDICINE [facility] Oct 16, 2024 01:00 PM AMBULATORY - PSYCHIATRY [facility] Oct 30, 2024 01:00 PM AMBULATORY - PSYCHIATRY [facility] Nov 27, 2024 01:00 PM AMBULATORY - PSYCHIATRY [facility] Dec 04, 2024 01:00 PM AMBULATORY - PSYCHIATRY [facility] Dec 11, 2024 01:00 PM AMBULATORY - PSYCHIATRY [facility] Dec 18, 2024 01:00 PM AMBULATORY - PSYCHIATRY [facility] Dec 25, 2024 01:00 PM AMBULATORY - PSYCHIATRY [facility] February 05, 2025 09:30 AM AMBULATORY - PSYCHIATRY [facility] Lab Results: +/- 30 days [...] Type Comment Sep 03, 2024 12:00 PM [facility] URINE DRUG SCREEN (STL) URINE [...] Sep 02, 2024 08:27 PM Reporting Lab: [facility] [facility] [phone] Performing Lab: [facility] [facility] [phone] ETHANOL <10.0 mg/dL 0-9 AMPHET/METHAMPHETAMINE Negative ng/mL COCAINE METABOLITES Negative ng/mL BENZODIAZEPINES (STL) Negative ng/mL CANNABINOIDS POSITIVE ng/mL METHADONE Negative ng/mL OPIATES Negative ng/mL CREATININE URINE/OTHERS 110.1 mg/dL H 47.0 -110.0 OXYCODONE ([id number]) Negative ng/mL BUPRENORPHINE (STL-PB-[place]) Negative ng/mL FENTANYL (STL-PB) Negative ng/mL Aug 25, 2024 02:03 PM [facility] URINE DRUG SCREEN (STL) URINE [...] Lab: [facility] [address] [facility] [address] Performing Lab: [facility] [address] [facility] [address] ETHANOL Negative mg/dL 0-20 AMPHET/METHAMPHETAMINE Negative ng/mL COCAINE METABOLITES Negative ng/mL BENZODIAZEPINES (STL) Negative ng/mL CANNABINOIDS POSITIVE ng/mL METHADONE Negative ng/mL OPIATES Negative ng/mL CREATININE URINE/OTHERS 39.0 mg/dL L 47-11 0 OXYCODONE (ACNCU-VDS-GH) Negative ng/mL BUPRENORPHINE (STL-PB-[place]) Negative ng/mL FENTANYL (L-PB) Negative ng/mL Aug 20, 2024 07:13 AM [facility] URINALYSIS W/ CX REFLEX (L-PB) URINE Specim en Type: URINE No comment entered. Ordering Provider: DANIEL GOMEZ Report Released Date/Time: Aug 19, 2024 11:04 AM Reporting Lab: [facility] [place] [address] Performing Lab: [facility] [place] [address] URINE COLOR Yellow Yellow U.BILIRUBIN Negative mg/dL [...] GRAVITY 1.028 Aug 19, 2024 10:08 AM [facility] URINALYSIS (L-PB) URINE Specimen Type: URIN E No comment entered. Ordering Provider: DANIEL GOMEZ Report Released Date/Time: Aug 16, 2024 03:45 PM Reporting Lab: [facility] [place] [phone] Performing Lab: [facility] [address] [place] [address] URINE COLOR Yellow Yellow U.BILIRUBIN Negative mg/dL [...] 1.035 H Aug 19, 2024 10:08 AM [facility] TEST URINE ([place]-STL) URINE Specimen Type: URINE No comment entered. Ordering Provider: DANIEL GOMEZ Report Released Date/Time: Aug 16, 2024 03:45 PM Reporting Lab: [facility] [facility] [phone] Performing Lab: [facility] [facility] [phone] Qualitative Test NEG NEGAT URBAN Aug 19, 2024 10:08 AM [facility] URINE DRUG SCREEN (STL) URINE [...] Aug 16, 2024 03:45 PM Reporting Lab: [facility] [facility] [phone] Performing Lab: [facility] [facility] [phone] ETHANOL Negative mg/dL 0-20 AMPHET/METHAMPHETAMINE Negative ng/mL COCAINE METABOLITES Negative ng/mL BENZODIAZEPINES (STL) Negative ng/mL CANNABINOIDS POSITIVE ng/mL METHADONE Negative ng/mL OPIATES POSITIVE ng/mL CREATININE URINE/OTHERS 266.1 mg/dL H 47.0 -110.0 OXYCODONE (GJFHO-LCS-BR) Negative ng/mL BUPRENORPHINE (STL-PB-[place]) Negative ng/mL FENTANYL (STL-PB) Negative ng/mL Aug 19, 2024 10:00 AM [facility] CBC BLOOD Specimen Type: BLOOD No comment entered. Ordering Provider: DANIEL GOMEZ Report Released Date/Time: Aug 16, 2024 03:45 PM Reporting Lab: [facility] [facility] [phone] Performing Lab: [facility] [facility] [phone] WBC 12.7 10*3/uL H 3.6-11.2 RBC 4.19 [...] 0.00-0. 20 Aug 19, 2024 09:59 AM [facility] COMPREHENSIVE METABOLIC PANEL PLASMA Specimen Type: PLASMA Comment: No hemolysis noted. Ordering Provider: DANIEL GOMEZ Report Released Date/Time: Aug 16, 2024 03:45 PM Reporting Lab: [facility] [facility] [phone] Performing Lab: [facility] [facility] [phone] CREATININE 0.75 mg/dL 0.60-1.10 UREA NITROGEN 12.0 [...] 104.44 >60 Aug 19, 2024 09:59 AM [facility] PT/INR NEW (STL-[place]) PLASMA Specimen Type: PLAS [place] No comment entered. Ordering Provider: DANIEL GOMEZ Report Released Date/Time: Aug 16, 2024 03:45 PM Reporting Lab: [facility] [facility] [phone] Performing Lab: [facility] [facility] [phone] PROTIME 9.4 s 9.4-12.5 INR VALUE 0.8 {INR} Aug 19, 2024 09:59 AM [facility] ETHANOL SERUM/PLASMA (STL) PLASMA Specimen Typ e: PLASMA Comment: No hemolysis noted. Ordering Provider: DANIEL GOMEZ Report Released Date/Time: Aug 16, 2024 03:45 PM Reporting Lab: [facility] [facility] [phone] Performing Lab: [facility] [facility] [address] ETHANOL SERUM/PLASMA (STL) <10.0 mg/dL 0 -10 Aug 19, 2024 09:59 AM [facility] GGT GAMMA-GT PLASMA Specimen Type: PLASM A No comment entered. Ordering Provider: DANIEL GOMEZ Report Released Date/Time: Aug 16, 2024 03:45 PM Reporting Lab: [facility] [address] [facility] [address] Performing Lab: [facility] [address] [facility] [phone] GGT GAMMA-GT 14 [IU]/L 12-64 Aug 19, 2024 09:59 AM [facility] MAGNESIUM PLASMA Specimen Type: PLASM A Comment: No hemolysis noted. Ordering Provider: DANIEL GOMEZ Report Released Date/Time: Aug 16, 2024 03:45 PM Reporting Lab: [facility] [facility] [phone] Performing Lab: [facility] [address] [facility] [phone] MAGNESIUM 2.1 mg/dL 1.6-2.6 Aug 19, 2024 09:59 AM [facility] CPK SERUM Specimen Type: SERUM No comment entered. Ordering Provider: DANIEL GOMEZ Report Released Date/Time: Aug 16, 2024 03:45 PM Reporting Lab: [facility] [facility] [phone] Performing Lab: [facility] [facility] [phone] CPK 37 U/L 29-168 Aug 19, 2024 09:59 AM [facility] HIV COMBO FOURTH GENERATION (STL) SERUM Speci men Type: SERUM No comment entered. Ordering Provider: DANIEL GOMEZ Report Released Date/Time: Aug 16, 2024 03:45 PM Reporting Lab: [facility] [address] [facility] [address] Performing Lab: [address] [address] HIV COMBO FOURTH GENERATION (STL) Nonreactive Nonreactive Aug 19, 2024 09:59 AM [facility] HEP C Ab HCV Ab (STL) SERUM Specimen Type: SE RUM No comment entered. Ordering Provider: DANIEL GOMEZ Report Released Date/Time: Aug 16, 2024 03:45 PM Reporting Lab: [facility] [address] [facility] [address] Performing Lab: [place] [address] [facility] [address] HEP C Ab HCV Ab ([facility]) Nonreactive Nonrea ctive Social History: Smoking Status (Most current) and [...] AM VA-TOBACCO USE ALFONZO RY DAY CIGARETTES [facility] Tobacco Use History This section includes a history of the smoking, or tobacco-related health factors, that were collected on or before the date of the Encounter. The data comes from the [place] facility where the Encounter took place. 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 Date/Time Encounter Note(s) Provider Source Aug 26, 2024 03:07 PM SOCIAL WORK GROUP COUNSELING NOTE: LOCAL TITLE: SW GROUP PSYCHOTHERAPY [facility] STANDARD TITLE: SOCIAL WORK GROUP COUNSELING NOTE DATE OF NOTE: AUG 26, 2024@15:07 ENTRY DATE: AUG 26, 2024@15:07:49 AUTHOR: SKY RAMOS EXP COSIGNER: MEKA HANNON URGENCY: STATUS: COMPLETED SW GROUP PSYCHOTHERAPY STL Has ADDENDA TITLE: [facility] GROUP PSYCHOTHERAPY CPT Code: 35693 Date: 08/26/2024 TIME OF GROUP: [id number] ARCH SUPPORT TECHNICIAN: Sky Ramos LMSW THERAPY FORMAT / INTERVENTION TYPE: [...] recovery, and advice to peers. For processing, veterans reflected on their homework from the weekend-- boundaries, boundaries needed in recovery, difficulties with boundaries, and plans for implementing boundaries. Veterans discussed the importance of implementing boundaries before situations escalate. They also discussed communicating boundaries in an open, empathetic, and honest way, especially when informing people that use substances that they are unable to see them in early recovery. OBJECTIVE: Objective: I will not use any [...] three times per week while enrolled in [facility]. RISK ASSESSMENT: No new risk factors relevant to suicide or homicide were reported. No report of suicidal ideation or aggressive impulses. Jackson did not appear to be at imminent risk of harm to self or other. REACTION: The was alert and attentive. Actively participated in the group interaction in an appropriate manner, gave feedback, and was receptive to feedback from group members. Diagnoses: Diagnoses: Primary Cannabis dependence, continuous ([facility] [id number]) - Cannabis dependence, uncomplicated (ICD-10-CM F12.20) /sanjeev/ Sky Ramos Vacuum Cleaner Assembler[facility]VI [facility] Signed: 08/26/2024 15:16 /ADINA Campbell LCSW Clinical Vacuum Cleaner Assembler Cosigned: 08/28/2024 09:38 08/28/2024 ADDENDUM STATUS: COMPLETED I concur with assessment, interventions, and plan of action detailed in this record. The services provided by this Social Work COAL CAGER are reviewed during weekly [id number] supervision and conducted with sufficient time to meet, or exceed, supervision amounts required by [facility], licensure, and accreditation mandates. /ADINA Campbell LCSW Clinical Vacuum Cleaner Assembler Signed: 08/28/2024 09:[address] [facility]
--- OUTSIDE RECORDS SUMMARY | 2025-02-23 10:59 | XMS_ITS | Encounter Summary ---
Author Name Department of [facility] ([place]) Organization [facility] ([place]) Address [address] [place] [address] Support Name Relationship Address Phone FUAD CHRISTINE [...] MEDIC AID Aug 02, 2015 MEDICAI D [id number] [phone] STACIE SHAUNA PATIENT [facility] (WNR) MEDICAID MEDIC AID [facility] (WNR) Dec 01, 2023 MEDICAI D [id number] STACIE AYESHAUNA PATIENT Selected Encounter This section includes the information on record at [place] for the Encounter. Date/Time Encounter Type Encounter Description Reason Provider Source Oct 16, 2024 01:00 PM CASE MANAGEMENT [facility] - IND ICD-10-CM F60.3 Borderline personality disorder SHANEKA WINTER Peggy Encounter Template Text not used by [place] Assessments - Encounter Diagnoses This section includes the primary and secondary diagnoses documented for the Encounter. Date/Time Primary/Secondary Diagnosis Diagnosis Name Provider Source Oct 16, 2024 02:49 PM PRIMARY Borderline personality disorder FREDDY WINTER [facility] Oct 16, 2024 02:49 PM SECONDARY Cannabis abuse, uncomplicated FREDDY WINTER [facility] Oct 16, 2024 02:49 PM SECONDARY Reaction to severe stress, unspecified FREDDY WINTER [facility] Plan of Treatment: Future Appointments (+ 6 months) and Future Tests (+/- 45 days) The Plan of Treatment section includes future care activities for the patient from all [place] [facility]. This section includes future appointments and future orders which are active, pending or scheduled. Future Appointments This section includes appointments that were scheduled to occur 6 months from the date of the Encounter, up to a maximum of 20 appointments. The data comes from all [facility]. Appointment Date/Time Appointment Type Appointme nt Facility Name Oct 30, 2024 01:00 PM AMBULATORY - PSYCHIATRY [facility] Nov 27, 2024 01:00 PM AMBULATORY - PSYCHIATRY [facility] Dec 04, 2024 01:00 PM AMBULATORY - PSYCHIATRY [facility] Dec 11, 2024 01:00 PM AMBULATORY - PSYCHIATRY [facility] Dec 18, 2024 01:00 PM AMBULATORY - PSYCHIATRY [facility] Dec 25, 2024 01:00 PM AMBULATORY - PSYCHIATRY [facility] February 05, 2025 09:30 AM AMBULATORY - PSYCHIATRY [facility] Apr 02, 2025 02:30 PM AMBULATORY - NONE [facility] Social History: Smoking Status (Most current) and Tobacco Use (All prior to encounter date) This section includes the most current, and the historical, smoking and tobacco- related health factors from the [place] facility where the Encounter took place. Current Smoking Status This section includes the most current smoking, or tobacco-related health factor, from the [place] facility where the Encounter took place. Date/Time Current Smoking Status Comment Nan ity Aug 19, 2024 10:33 AM [place]-TOBACCO USE ALFONZO RY DAY CIGARETTES [facility] Tobacco Use History This section includes a history of the smoking, or tobacco-related health factors, that were collected on or before the date of the Encounter. The data comes from the [place] facility where the Encounter took place. 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 Date/Time Encounter Note(s) Provider Source Oct 17, 2024 11:00 AM ADDENDUM: LOCAL TITLE: Addendum STANDARD TITLE: ADDENDUM DATE OF NOTE: OCT 17, 2024@11:00:47 ENTRY DATE: OCT 17, 2024@11:00:48 AUTHOR: SHARONA MOFFETT EXP COSIGNER: URGENCY: STATUS: COMPLETED MHTC please contact pt with specific dosages/formulation and I can mail 90 day supply of medication. Thank you /sanjeev/ Zamzam Moffett M.D. Staff Physician [facility] Signed: 10/17/2024 11:01 Receipt Acknowledged By: 10/17/2024 13:05 /sanjeev/ TD BOYD, RN- REGISTERED NURSE --- Original Document --- 10/16/24 SOCIAL WORK CONSULT STL: [facility] ([facility]VC)/Video to home template v1.0 Appointment was conducted via [facility] Video Connect or Video to home VVC/Video to home appointment information: The following items were reviewed: - The nature of telehealth, its benefits, and risks. - Confidentiality and its limits. - The importance of having a confidential location for the service. - The emergency plan. - The appointment should be treated like an in person appointment (no smoking or driving during session, showing up fully dressed, etc.) *The Virtual Medical Room was locked for this encounter. *A survey of the environment was conducted and it is appropriate to conduct a CVT/VVC appointment. *Confirmed [place]'s Non-VA location for this appointment: Address: [address] [place], [place] [address] County: [place] *[place] was notified of right to decline Telehealth services and eligibility for other options. consented to be seen via CVT/VVC. EMERGENCY PLAN In the event of an emergency, the [place] or family will call emergency services, if capable. Tele provider will remain in the virtual medical room until emergency response arrives and handoff to emergency services is complete. If is unable to make emergency call, Tele provider is to call the national itembase11 service at [phone] and ask to be connected to emergency services for the 's location. Crisis Hotline: 745.757.5962 [place] Tele[facility] Technology Help Desk (NTTHD): 925.805.2026 or 699-104-0244 REASON FOR VISIT: composition worker responded to [facility] 3 consult for case management; referred to by [facility] and [facility] team to provide assistance with ESTELA programming and housing resources. INFORMED CONSENT Informed consent, including a discussion about limits to confidentiality, was sought and verbally granted. Provider identified and discussed risks, benefits, and potential complications with , and obtained consent for care. SUMMARY: Ms. Shauna Hare is a 39-year-old, White, female, , non- service connected, [place] [employer] receiving treatment under Special Authority/MST related care. composition worker and connected via VVC for this first appointment. composition worker introduced self, discussed role in the [facility] and inquired of 's needs. At time of call, was at their residence as listed above. described her current mental health case management needs related to staying sober and doing daily things. When asked to elaborate, thiago reported that she quit yesterday her cannabis use and wants to address both her ESTELA and history of trauma. When discussing options, thiago noted to have already participated in [facility] and is attending aftercare. As thiago is not actively engaged in an evidence based psychotherapy for the above, options within [facility] were discussed. Thiago chose to opt into [facility], consult will be sent on her behalf. After discussion with group search engine optimization strategist, thiago will be able to address both history of trauma and current ESTELA behaviors. [place] agreeable to time and date of group. Additional services, including individual psychotherapy, can be explored at a later date. Thiago agreeable to recovery based treatment plan. Thiago is also interested in assessment from Comp Work Therapy. She noted a history of attempts to engage with said program but she declined at that time. At present, she is requesting a new consult. C-SSRS completed in session per protocol. Thiago noted a lack of refills on medications prescribed at [facility]. MHTC and psychiatrist will be added to note for continuity of care. Thiago reports that she is out of olanzapine and bupropion at dosages prescribed at said program. Requesting refill. When discussing housing, thiago stated that she is currently housed, without rent payment. She stated that she would like to enter the domiciliary. When asked why she stated that she likes the environment and being around other veterans. Thiago is currently housed, has childcare responsibilities without support (per her report) and is willing to engage in [facility] for cannabis use. No consult for said program will be entered at this time. Thiago requested assistance with therapy services for her children. composition worker engaged thiago to reach out to machine oiler's office for referral. If no services are available, this quality analyst/technical writer can provide local community family/child therapy options. Thiago verbalized understanding and appreciation. No other needs reported at this time. No new risk factors relevant to suicide or homicide reported. When considering all risk and protective factors, this did not appear to be at imminent risk to harm self or others at this time. Thiago remains sustainable as an outpatient. PLAN: composition worker will alert MHTC and psychiatrist of refill requests and will enter consult for Comp Work Therapy per request. plans to follow-up with the resources listed above, as able. She wrote down needed information and repeated it back to social sciences research scientist to ensure correct notation. She was given the [facility] contact number, , as well as this quality analyst/technical writer's extension [phone] in the event that additional resources are needed. RTC in 2 week for follow-up session. Duration: 30 Minutes Location: [facility] VVC Diagnosis: Borderline personality disorder Reaction to severe stress Cannabis abuse, uncomplicated /es/ Freddy Winter SOAP PRESS FEEDER PROGRAM COUNSELOR Last Sawyer Outpatient [facility] Signed: 10/16/2024 14:49 Receipt Acknowledged By: 10/17/2024 13:04 /es/ TD MORTENSEN BSN, RN-BC REGISTERED NURSE 10/17/2024 10:56 /es/ Zamzam Moffett M.D. Staff Physician [facility] SHARONA MARTINO [facility] Oct 16, 2024 02:29 PM SOCIAL WORK CONSULT: LOCAL TITLE: SOCIAL WORK CONSULT ST STANDARD TITLE: SOCIAL WORK CONSULT DATE OF NOTE: OCT 16, 2024@14:29 ENTRY DATE: OCT 16, 2024@14:29:43 AUTHOR: FREDDY WINTER EXP COSIGNER: URGENCY: STATUS: COMPLETED SOCIAL WORK CONSULT ST Has ADDENDA [facility] Video Connect (VVC)/Video to home template v1.0 Appointment was conducted via [facility] Video Connect or Video to home VVC/Video to home appointment information: The following items were reviewed: - The nature of telehealth, its benefits, and risks. - Confidentiality and its limits. - The importance of having a confidential location for the service. - The emergency plan. - The appointment should be treated like an in person appointment (no smoking or driving during session, showing up fully dressed, etc.) *The Virtual Medical Room was locked for this encounter. *A survey of the environment was conducted and it is appropriate to conduct a CVT/VVC appointment. *Confirmed 's Non-VA location for this appointment: Address: [address]: [place] *[place] was notified of right to decline Telehealth services and eligibility for other options. [place] consented to be seen via CVT/VVC. EMERGENCY PLAN In the event of an emergency, the or family will call emergency services, if capable. Tele provider will remain in the virtual medical room until emergency response arrives and handoff to emergency services is complete. If is unable to make emergency call, Tele provider is to call the national E911 service at [phone] and ask to be connected to emergency services for the [place]'s location. Crisis Hotline: 774.227.2559 [place] [facility] Help Desk (NTTHD): 598.744.2315 or 024-894-5269 REASON FOR VISIT: composition worker responded to [facility] 3 consult for case management; referred to by [facility] and [facility] team to provide assistance with ESTELA programming and housing resources. INFORMED CONSENT Informed consent, including a discussion about limits to confidentiality, was sought and verbally granted. Provider identified and discussed risks, benefits, and potential complications with , and obtained consent for care. SUMMARY: Ms. Shauna Hare is a 39-year-old, White, female, , non- service connected, [place] [employer] receiving treatment under Special Authority/MST related care. composition worker and connected via VVC for this first appointment. composition worker introduced self, discussed role in the [facility] and inquired of 's needs. At time of call, thiago was at their residence as listed above. described her current mental health case management needs related to staying sober and doing daily things. When asked to elaborate, reported that she quit yesterday her cannabis use and wants to address both her ESTELA and history of trauma. When discussing options, thiago noted to have already participated in [facility] and is attending aftercare. As is not actively engaged in an evidence based psychotherapy for the above, options within [facility] were discussed. Thiago chose to opt into [facility], consult will be sent on her behalf. After discussion with group search engine optimization strategist, thiago will be able to address both history of trauma and current ESTELA behaviors. [place] agreeable to time and date of group. Additional services, including individual psychotherapy, can be explored at a later date. Thiago agreeable to recovery based treatment plan. Thiago is also interested in assessment from Comp Work Therapy. She noted a history of attempts to engage with said program but she declined at that time. At present, she is requesting a new consult. C-SSRS completed in session per protocol. Thiago noted a lack of refills on medications prescribed at [facility]. MHTC and psychiatrist will be added to note for continuity of care. Thiago reports that she is out of olanzapine and bupropion at dosages prescribed at said program. Requesting refill. When discussing housing, thiago stated that she is currently housed, without rent payment. She stated that she would like to enter the domiciliary. When asked why she stated that she likes the environment and being around other veterans. Thiago is currently housed, has childcare responsibilities without support (per her report) and is willing to engage in [facility] for cannabis use. No consult for said program will be entered at this time. Thiago requested assistance with therapy services for her children. composition worker engaged thiago to reach out to machine oiler's office for referral. If no services are available, this quality analyst/technical writer can provide local community family/child therapy options. Thiago verbalized understanding and appreciation. No other needs reported at this time. No new risk factors relevant to suicide or homicide reported. When considering all risk and protective factors, this did not appear to be at imminent risk to harm self or others at this time. Thiago remains sustainable as an outpatient. PLAN: composition worker will alert MHTC and psychiatrist of refill requests and will enter consult for Comp Work Therapy per request. Thiago plans to follow-up with the resources listed above, as able. She wrote down needed information and repeated it back to social sciences research scientist to ensure correct notation. She was given the [facility] contact number, , as well as this quality analyst/technical writer's extension [phone] in the event that additional resources are needed. RTC in 2 week for follow-up session. Duration: 30 Minutes Location: [facility] Diagnosis: Borderline personality disorder Reaction to severe stress Cannabis abuse, uncomplicated /es/ Freddy Winter SOAP PRESS FEEDER PROGRAM COUNSELOR Last Sawyer [facility] Outpatient [facility] Signed: 10/16/2024 14:49 Receipt Acknowledged By: 10/17/2024 13:04 /sanjeev/ TD CONROYN, RN- REGISTERED NURSE 10/17/2024 10:56 /saravanan Moffett M.D. Staff Physician [facility]I 10/17/2024 ADDENDUM STATUS: COMPLETED MHTC please contact pt with specific dosages/formulation and I can mail 90 day supply of medication. Thank you /sanjeev/ Zamzam Moffett M.D. Staff Physician [facility] Signed: 10/17/2024 11:01 Receipt Acknowledged By: * AWAITING SIGNATURE * TD MORTENSEN AMANDA K [facility] Oct 16, 2024 01:14 PM SUICIDE PREVENTION NOTE: LOCAL TITLE: [place]-SUICIDE SEVERITY RATING SCALE STANDARD TITLE: SUICIDE PREVENTION NOTE DATE OF NOTE: OCT 16, 2024@13:14 ENTRY DATE: OCT 16, 2024@13:14:57 AUTHOR: FREDDY WINTER EXP COSIGNER: URGENCY: STATUS: COMPLETED [place]-Suicide Severity Rating Scale (C-SSRS Screener) 1. Over the past month, have you [...] went to the roof but didn't jump)? Yes 8. If YES, was this within the past 3 months? No I have reviewed the results of the Mental Health screens and have evaluated the patient. Based on the evaluation, the following disposition plan will be implemented: No further intervention is needed at this time. Contact information and instructions for accessing emergency services provided. /sanjeev/ Freddy HOLDEN PROGRAM COUNSELOR Last [facility]yer [facility] Signed: 10/16/2024 14:49 FREDDY WINTER [facility]
--- OUTSIDE RECORDS SUMMARY | 2025-02-23 10:59 | XMS_ITS | Referral Summary ---
Author Organization [facility] Address [address] [place] [id number] Care Team Providers Care Marine Steam Fitter Helper Name Role Phone Liz Crandall Unavailable [phone] Merritt Gaines PT Unavailable Unavailable Daniel, Gita Coleman LOSS PREVENTION COORDINATOR Primary Care Provider [phone] Encounters Date Type Department Care Team Description 02/02/2025 2:32 AM CDT - 02/02/2025 6:02 AM CDT Emergency [facility] Emergency Department [facility] [place] [address] Clem Grande, DO Bronchitis (Primary Dx) Discharge Disposition: Discharge to home or self care from Last 3 Months Allergies Active Allergy Reactions Criticality Noted Date [...] 10/03/2023 Assessment & Plan (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 SN: SN Report ID: [id number] Reading Location: [id number] Procedure Note Morena Dior MD - 02/02/2025 [...] Electronically signed by Morena Dior M.D. SN: Report ID: [id number] Reading Location: [id number] us Samer Ariadna Grande DO IMG XR PROCEDURES Génesis l Result * Pap and HPV, reflex to HPV Genotypes (06/13/2023 11:49 AM CDT) CLINICAL INFORMATION: [facility] Comment:None given LMP [facility] [employer] [facility] Comment:A Previous Pap [facility] Comment:NONE GIVEN Prev. Bx [facility] [employer] [facility] Comment:NONE GIVEN SOURCE: [employer] [facility] Comment:Cervix, Endocervix Pap, specimen adequacy [facility] Comment: Satisfactory for evaluation. Endocervical/transformation zone component present. Age and/or menstrual status not provided HPV interp [facility] Comment: Cytology Results: Negative for intraepithelial lesion or malignancy. Infection: [facility] Comment: Shift in vaginal constanza suggestive of bacterial vaginosis. Adolescent Psychiatrist Que [facility] Comment: TLS, CT(ASCP) CT Screening Location: [place] [address] Comment [facility] [employer] [facility] Comment: EXPLANATORY NOTE: The Pap is a [...] Client Letter) showing TIS test codes, see [email or web address], and navigate to Well-Woman>Physician Materials>TIS Client Letter. You can also call for test code assistance. Human papillomavirus DNA, High Risk E6/E7 Not Detected NOT DETECTED [employer] [facility] Comment: Not Detected High Risk HPV types (16,18,31,33,35,39,45,51,52, 56,58,59,66,68) were not detected. Other HPV types which cause anogenital lesions may be present. The significance of the other types of HPV in malignant processes has not been established. Methodology: Real Time PCR Thin prep 06/13/2023 11:4 9 AM CDT 06/14/2023 5:17 AM CDT Jacinto Freeman MD LAB CYTOLOGY ORDERABLES Fi nal Result [facility] [address] [place] [address] [employer] [address] [place] [address] * Serum Hepatitis C ab (01/27/2016 12:26 PM CDT) HCV ab Negative Negative HISTORICAL RESULTS Serum 01/27/2016 12:2 6 PM CDT Althea Hernandez MD LAB BLOOD ORDERABLES Final Resul t HISTORICAL RESULTS from Last 3 Months or Most Recently Relevant to Health Maintenance Insurance [facility] Care Teams Marine Steam Fitter Helper Relationship Specialty Start Date End Date Gita Daniel NP [address] [place] [address] PCP - General 02/28/21 Liz Crandall PA [address] [place] [address] Physician Computer Typesetter Internal Medicine 09/13/17 Merritt Gaines PT Physical Therapist Physical Therapy 09/13/17
--- OUTSIDE RECORDS SUMMARY | 2025-02-23 10:59 | XMS_ITS ---
Author Name [facility] [place] Organization [facility] [place] Address [address] [place] [id number] Support Name Relationship Address Phone FUAD CHRISTINE Next of Kin Unknown CHRISTINE MERIDA Emergency Contact Unknown [phone] Insurance Providers: All historical and current Section [...] MEDIC AID Aug 02, 2015 MEDICAI D [id number] [id number] STACIE AYEJENNIFER PATIENT [facility] (WNR) MEDICAID MEDIC AID [facility] (WNR) Dec 01, 2023 MEDICAI D [id number] STACIE JENNIFER PATIENT Selected Encounter This section includes the information on record at [place] for the Encounter. 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 Date/Time Primary/Secondary Diagnosis Diagnosis Name Provider Source Sep 01, 2024 09:37 AM PRIMARY Spiritual or episcopalian counseling ALBERTO PALOMO [facility] Plan of Treatment: Future Appointments (+ 6 months) and Future Tests (+/- 45 days) The Plan of Treatment section includes future care activities for the [facility] [place] [facility] This section includes future appointments and future orders which are active, pending or scheduled. Future Appointments This section includes appointments that were scheduled to occur 6 months from the date of the Encounter, up to a maximum of 20 appointments. The data comes from all [place] treatment facilities. Appointment Date/Time Appointment Type Appointme nt Facility Name Sep 10, 2024 12:30 PM AMBULATORY - PSYCHIATRY [facility] Sep 12, 2024 06:00 PM AMBULATORY - PSYCHIATRY [facility] Sep 17, 2024 06:00 PM AMBULATORY - PSYCHIATRY [facility] Sep 19, 2024 06:00 PM AMBULATORY - PSYCHIATRY [facility] Sep 26, 2024 06:00 PM AMBULATORY - PSYCHIATRY [facility] Oct 01, 2024 02:00 PM AMBULATORY - NONE [facility] Oct 09, 2024 03:00 PM AMBULATORY - MEDICINE [facility] Oct 16, 2024 01:00 PM AMBULATORY - PSYCHIATRY [facility] Oct 30, 2024 01:00 PM AMBULATORY - PSYCHIATRY [facility] Nov 27, 2024 01:00 PM AMBULATORY - PSYCHIATRY [facility] Dec 04, 2024 01:00 PM AMBULATORY - PSYCHIATRY [facility] Dec 11, 2024 01:00 PM AMBULATORY - PSYCHIATRY [facility] Dec 18, 2024 01:00 PM AMBULATORY - PSYCHIATRY [facility] Dec 25, 2024 01:00 PM AMBULATORY - PSYCHIATRY [facility] February 05, 2025 09:30 AM AMBULATORY - PSYCHIATRY [facility] Lab Results: +/- 30 days of the encounter This section includes the Chemistry and Hematology Lab Results on record with [place] for the patient. Radiology Reports and Pathology [...] and its performance characteristics confirmed by the [facility] thru method comparison with reference laboratory and medication chart review. The laboratory is regulated under CLIA as qualified to perform high-complexity testing. Fentanyl is used for clinical purposes in conjunction with other laboratory tests. Ordering Provider: DANIEL GOMEZ Report Released Date/Time: Sep 02, 2024 08:27 PM Reporting Lab: [facility] [address] Performing Lab: [facility] [address] ETHANOL <10.0 mg/dL 0-9 AMPHET/METHAMPHETAMINE Negative ng/mL COCAINE METABOLITES Negative ng/mL BENZODIAZEPINES (STL) Negative ng/mL CANNABINOIDS POSITIVE ng/mL METHADONE Negative ng/mL OPIATES Negative ng/mL CREATININE URINE/OTHERS 110.1 mg/dL H 47.0 -110.0 OXYCODONE ([id number]) Negative ng/mL BUPRENORPHINE (STL-PB-MA) Negative ng/mL FENTANYL (STL-PB) Negative ng/mL Aug 25, 2024 02:03 PM [facility] URINE DRUG SCREEN (STL) URINE Specimen Type: URINE Comment: The cut-off value for Fentanyl was laboratory developed and its performance characteristics confirmed by the [facility] thru method comparison with reference laboratory and medication chart review. The laboratory is regulated under CLIA as qualified to perform high-complexity testing. Fentanyl is used for clinical purposes in conjunction with other laboratory tests. Ordering Provider: DANIEL GOMEZ Report Released Date/Time: Aug 24, 2024 07:24 PM Reporting Lab: [facility] [address] [facility] [address] Performing Lab: [facility] [address] [facility] [address] ETHANOL Negative mg/dL 0-20 AMPHET/METHAMPHETAMINE Negative ng/mL COCAINE METABOLITES Negative ng/mL BENZODIAZEPINES (STL) Negative ng/mL CANNABINOIDS POSITIVE ng/mL METHADONE Negative ng/mL OPIATES Negative ng/mL CREATININE URINE/OTHERS 39.0 mg/dL L 47-11 0 OXYCODONE ([id number]) Negative ng/mL BUPRENORPHINE (STL-PB-MA) Negative ng/mL FENTANYL (STL-PB) Negative ng/mL Aug 20, 2024 07:13 AM [facility] URINALYSIS W/ CX REFLEX (STL-PB) URINE Specim en Type: URINE No comment entered. Ordering Provider: DANIEL GOMEZ Report Released Date/Time: Aug 19, 2024 11:04 AM Reporting Lab: [facility] [place] [address] Performing Lab: [facility] [place] [address] URINE COLOR Yellow Yellow U.BILIRUBIN Negative mg/dL [...] GRAVITY 1.028 Aug 19, 2024 10:08 AM [facility] URINALYSIS (STL-PB) URINE Specimen Type: URIN E No comment entered. Ordering Provider: DANIEL GOMEZ Report Released Date/Time: Aug 16, 2024 03:45 PM Reporting Lab: [facility] [address] Performing Lab: [facility] [place] [address] URINE COLOR Yellow Yellow U.BILIRUBIN Negative mg/dL [...] Aug 16, 2024 03:45 PM Reporting Lab: [facility] [address] Performing Lab: [facility] [address] Qualitative Test NEG NEGAT URBAN Aug 19, 2024 10:08 AM [facility] URINE DRUG SCREEN (STL) URINE Specimen Type: URINE Comment: The cut-off value for Fentanyl was laboratory developed and its performance characteristics confirmed by the [facility] thru method comparison with reference laboratory and medication chart review. The laboratory is regulated under CLIA as qualified to perform high-complexity testing. Fentanyl is used for clinical purposes in conjunction with other laboratory tests. Ordering Provider: DANIEL GOMEZ Report Released Date/Time: Aug 16, 2024 03:45 PM Reporting Lab: [facility] [address] Performing Lab: [facility] [address] ETHANOL Negative mg/dL 0-20 AMPHET/METHAMPHETAMINE Negative ng/mL COCAINE METABOLITES Negative ng/mL BENZODIAZEPINES (STL) Negative ng/mL CANNABINOIDS POSITIVE ng/mL METHADONE Negative ng/mL OPIATES POSITIVE ng/mL CREATININE URINE/OTHERS 266.1 mg/dL H 47.0 -110.0 OXYCODONE ([id number]) Negative ng/mL BUPRENORPHINE (STL-PB-MA) Negative ng/mL FENTANYL (STL-PB) Negative ng/mL Aug 19, 2024 10:00 AM [facility] CBC BLOOD Specimen Type: BLOOD No comment entered. Ordering Provider: DANIEL GOMEZ Report Released Date/Time: Aug 16, 2024 03:45 PM Reporting Lab: [facility] [address] Performing Lab: [facility] [address] WBC 12.7 10*3/uL H 3.6-11.2 RBC 4.19 [...] 0.00-0. 20 Aug 19, 2024 09:59 AM [facility] COMPREHENSIVE METABOLIC PANEL PLASMA Specimen Type: PLASMA Comment: No hemolysis noted. Ordering Provider: DANIEL GOMEZ Report Released Date/Time: Aug 16, 2024 03:45 PM Reporting Lab: [facility] [address] Performing Lab: [facility] [address] CREATININE 0.75 mg/dL 0.60-1.10 UREA NITROGEN 12.0 [...] 104.44 >60 Aug 19, 2024 09:59 AM [facility] PT/INR NEW (STL-MA) PLASMA Specimen Type: PLAS MA No comment entered. Ordering Provider: DANIEL GOMEZ Report Released Date/Time: Aug 16, 2024 03:45 PM Reporting Lab: [facility] [place] [address] Performing Lab: [facility] [address] PROTIME 9.4 s 9.4-12.5 INR VALUE 0.8 {INR} Aug 19, 2024 09:59 AM [facility] ETHANOL SERUM/PLASMA (STL) PLASMA Specimen Typ e: PLASMA Comment: No hemolysis noted. Ordering Provider: DANIEL GOMEZ Report Released Date/Time: Aug 16, 2024 03:45 PM Reporting Lab: [facility] [address] Performing Lab: [facility] [address] ETHANOL SERUM/PLASMA (STL) <10.0 mg/dL 0 -10 Aug 19, 2024 09:59 AM [facility] GGT GAMMA-GT PLASMA Specimen Type: PLASM A No comment entered. Ordering Provider: DANIEL GOMEZ Report Released Date/Time: Aug 16, 2024 03:45 PM Reporting Lab: [facility] [address] [facility] [facility] [address] Performing Lab: [facility] [address] [facility] [place] [address] GGT GAMMA-GT 14 [IU]/L 12-64 Aug 19, 2024 09:59 AM [facility] MAGNESIUM PLASMA Specimen Type: PLASM A Comment: No hemolysis noted. Ordering Provider: DANIEL GOMEZ Report Released Date/Time: Aug 16, 2024 03:45 PM Reporting Lab: [facility] [address] Performing Lab: [facility] [address] MAGNESIUM 2.1 mg/dL 1.6-2.6 Aug 19, 2024 09:59 AM [facility] CPK SERUM Specimen Type: SERUM No comment entered. Ordering Provider: DANIEL GOMEZ Report Released Date/Time: Aug 16, 2024 03:45 PM Reporting Lab: [facility] [address] Performing Lab: [facility] [address] CPK 37 U/L 29-168 Aug 19, 2024 09:59 AM [facility] HEP C Ab HCV Ab (STL) SERUM Specimen Type: SE RUM No comment entered. Ordering Provider: DANIEL GOMEZ Report Released Date/Time: Aug 16, 2024 03:45 PM Reporting Lab: [facility] [address] [facility] [address] Performing Lab: [facility] [address] [facility] [address] HEP C Ab HCV Ab (STL) Nonreactive Nonrea ctive Aug 19, 2024 09:59 AM [facility] HIV COMBO FOURTH GENERATION (STL) SERUM Speci men Type: SERUM No comment entered. Ordering Provider: DANIEL GOMEZ Report Released Date/Time: Aug 16, 2024 03:45 PM Reporting Lab: [facility] [address] [facility] [address] Performing Lab: [facility] [address] [facility] [address] HIV COMBO FOURTH GENERATION (STL) Nonreactive Nonreactive Social History: Smoking Status (Most current) and Tobacco Use (All prior to encounter date) This section includes the most current, and the historical, smoking and tobacco- related health factors from the [facility] where the Encounter took place. Current Smoking Status This section includes the most current smoking, or tobacco-related health factor, from the [place] facility where the Encounter took place. Date/Time Current Smoking Status Comment Facil ity Aug 19, 2024 10:33 AM VA-TOBACCO USE ALFONZO RY DAY CIGARETTES [facility] Tobacco Use History This section includes a history of the smoking, or tobacco-related health factors, that were collected on or before the date of the Encounter. The data comes from the [place] facility where the Encounter took place. 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 Date/Time Encounter Note(s) Provider Source Sep 01, 2024 07:45 AM PASTORAL CARE NOTE : LOCAL TITLE: PASTORAL CARE NOTE STANDARD TITLE: PASTORAL CARE NOTE DATE OF NOTE: SEP 01, 2024@07:45 ENTRY DATE: SEP 01, 2024@09:02:28 AUTHOR: ALBERTO PALOMO COSIGNER: URGENCY: STATUS: COMPLETED Pastoral Visit: Follow-up is known to order selector. Napping Machine Operator met with: Location: [address] [place] Preference: Other: Gnosticist Non-specific Assessment: Fitzwilliam was baptized on Monday. She said it was the greatest experience of her life. Her 9 yr. old son came and expressed he also wants to be baptized. I gave her celebrate recovery resources and shared a devotional resource with her as well (i.e., Treasure johnson). She will be getting her kids Bibles and getting them into zoroastrian. Her oldest dtr is 14 and is wanting to read the Bible. I gave her some suggestions on this and doing devotionals with her children. She has 2 children, 2 dtrs 14 and 11 and a 9 yr old son. Initial Interaction: Informed of order selector's availability to discuss condition and concerns Spiritual resources appear: adequate Discussed 's relationship with: God, zoroastrian, family Discussed 's concerns regarding: spirituality INTERVENTION Offered / accepted: spiritual counseling, episcopalian/spiritual literature OUTCOMES Fitzwilliam's Response: expressed appreciation for the visit Observations: experienced support FOLLOW-UP Napping Machine Operator will be available to as needed throughout this admission. /sanjeev/ Monica Palomo M.A., M.Julian, [facility] HEATER OPERATOR Signed: 09/01/2024 09:38 ALBERTO PALOMO [facility]
--- OUTSIDE RECORDS SUMMARY | 2025-02-23 11:00 | XMS_ITS | Encounter Summary ---
Author Name [facility] [place] [facility] [place] [facility] [facility] [place] Address [address] [place] [address] Support Name Relationship Address Phone FAUD CHRISTINE Next of Kin Unknown CHRISTINE MERIDA [...] MEDIC AID Aug 02, 2015 MEDICAI D [id number] [phone] JENNIFER QUINONES PATIENT [facility] (WNR) MEDICAID MEDIC AID [facility] (WNR) Dec 01, 2023 MEDICAI D [id number] JENNIFER QUINONES PATIENT Selected Encounter This section includes the information on record at [place] for the Encounter. Date/Time Encounter Type Encounter Description Reason Provider Source Aug 27, 2024 09:00 PM SELF-MGMT EDUC/TRAIN 5-8 PT SUBSTANCE USE DISORDR GRP ICD-10-CM F12.10 Cannabis abuse, uncomplicated PEREZ-MISTY NOEL Peggy Encounter Template Text not used by [place] Assessments - Encounter Diagnoses This section includes the primary and secondary diagnoses documented for the Encounter. Date/Time Primary/Secondary Diagnosis Diagnosis Name Provider Source Aug 27, 2024 10:52 PM PRIMARY Cannabis abuse, uncomplicated PEREZ-FO BETSY MUNGUIA [facility] Plan of Treatment: Future Appointments (+ 6 months) and Future Tests (+/- 45 days) The Plan of Treatment section includes future care activities for the patient from [facility] [place] [facility] This section includes future appointments and future orders which are active, pending or scheduled. Future Appointments This section includes appointments that were scheduled to occur 6 months from the date of the Encounter, up to a maximum of 20 appointments. The data comes from all [place] [facility]. Appointment Date/Time Appointment Type Appointme nt Facility Name Sep 10, 2024 12:30 PM AMBULATORY - PSYCHIATRY [facility] Sep 12, 2024 06:00 PM AMBULATORY - PSYCHIATRY [facility] Sep 17, 2024 06:00 PM AMBULATORY - PSYCHIATRY [facility] Sep 19, 2024 06:00 PM AMBULATORY - PSYCHIATRY [facility] Sep 26, 2024 06:00 PM AMBULATORY - PSYCHIATRY [facility] Oct 01, 2024 02:00 PM AMBULATORY - NONE [facility] Oct 09, 2024 03:00 PM AMBULATORY - MEDICINE [facility] Oct 16, 2024 01:00 PM AMBULATORY - PSYCHIATRY [facility] Oct 30, 2024 01:00 PM AMBULATORY - PSYCHIATRY [facility] Nov 27, 2024 01:00 PM AMBULATORY - PSYCHIATRY [facility] Dec 04, 2024 01:00 PM AMBULATORY - PSYCHIATRY [facility] Dec 11, 2024 01:00 PM AMBULATORY - PSYCHIATRY [facility] Dec 18, 2024 01:00 PM AMBULATORY - PSYCHIATRY [facility] Dec 25, 2024 01:00 PM AMBULATORY - PSYCHIATRY [facility] February 05, 2025 09:30 AM AMBULATORY - PSYCHIATRY [facility] Lab Results: +/- 30 days of [...] Comment Sep 03, 2024 12:[address] [facility] URINE DRUG SCREEN (STL) URINE Specimen Type: URINE Comment: The cut-off value for Fentanyl was laboratory developed and its performance characteristics confirmed by the [facility] laboratory thru method comparison with reference laboratory and medication chart review. The laboratory is regulated under CLIA as qualified to perform high-complexity testing. Fentanyl is used for clinical purposes in conjunction with other laboratory tests. Ordering Provider: DANIEL GOMEZ Report Released Date/Time: Sep 02, 2024 08:27 PM Reporting Lab: [facility] [phone] Performing Lab: [facility] [phone] ETHANOL <10.0 mg/dL 0-9 AMPHET/METHAMPHETAMINE Negative ng/mL COCAINE METABOLITES Negative ng/mL BENZODIAZEPINES (STL) Negative ng/mL CANNABINOIDS POSITIVE ng/mL METHADONE Negative ng/mL OPIATES Negative ng/mL CREATININE URINE/OTHERS 110.1 mg/dL H 47.0 -110.0 OXYCODONE (AZLAM-QFL-ND) Negative ng/mL BUPRENORPHINE (STL-PB-MA) Negative ng/mL FENTANYL (STL-PB) Negative ng/mL Aug 25, 2024 02:[address] [facility] URINE DRUG SCREEN (STL) URINE Specimen Type: URINE Comment: The cut-off value for Fentanyl was laboratory developed and its performance characteristics confirmed by the [facility] laboratory thru method comparison with reference laboratory and medication chart review. The laboratory is regulated under CLIA as qualified to perform high-complexity testing. Fentanyl is used for clinical purposes in conjunction with other laboratory tests. Ordering Provider: DANIEL GOMEZ Report Released Date/Time: Aug 24, 2024 07:24 PM Reporting Lab: [facility] [address] [facility] [phone] Performing Lab: [facility] [address] [facility] [phone] ETHANOL Negative mg/dL 0-20 AMPHET/METHAMPHETAMINE Negative ng/mL COCAINE METABOLITES Negative ng/mL BENZODIAZEPINES (STL) Negative ng/mL CANNABINOIDS POSITIVE ng/mL METHADONE Negative ng/mL OPIATES Negative ng/mL CREATININE URINE/OTHERS 39.0 mg/dL L 47-11 0 OXYCODONE (MXRUP-ELE-RM) Negative ng/mL BUPRENORPHINE (STL-PB-MA) Negative ng/mL FENTANYL (STL-PB) Negative ng/mL Aug 20, 2024 07:[address] [facility] URINALYSIS W/ CX REFLEX (STL-PB) URINE Specim en Type: URINE No comment entered. Ordering Provider: DANIEL GOMEZ Report Released Date/Time: Aug 19, 2024 11:04 AM Reporting Lab: [facility] [place] [address] Performing Lab: [facility] [place] [address] URINE COLOR Yellow Yellow U.BILIRUBIN Negative mg/dL [...] 1.028 Aug 19, 2024 10:[address] [facility] URINALYSIS (STL-PB) URINE Specimen Type: URIN E No comment entered. Ordering Provider: DANIEL GOMEZ Report Released Date/Time: Aug 16, 2024 03:45 PM Reporting Lab: [facility] [place] [address] Performing Lab: [facility] [place] [address] URINE COLOR Yellow Yellow U.BILIRUBIN Negative mg/dL [...] Aug 19, 2024 10:[address] [facility] TEST URINE (MA-STL) URINE Specimen Type: URINE No comment entered. Ordering Provider: DANIEL GOMEZ Report Released Date/Time: Aug 16, 2024 03:45 PM Reporting Lab: [facility] [phone] Performing Lab: [facility] [phone] Qualitative Test NEG NEGAT URBAN Aug 19, 2024 10:[address] [facility] URINE DRUG SCREEN (STL) URINE Specimen Type: URINE Comment: The cut-off value for Fentanyl was laboratory developed and its performance characteristics confirmed by the [facility] laboratory thru method comparison with reference laboratory and medication chart review. The laboratory is regulated under CLIA as qualified to perform high-complexity testing. Fentanyl is used for clinical purposes in conjunction with other laboratory tests. Ordering Provider: DANIEL GOMEZ Report Released Date/Time: Aug 16, 2024 03:45 PM Reporting Lab: [facility] [phone] Performing Lab: [facility] [phone] ETHANOL Negative mg/dL 0-20 AMPHET/METHAMPHETAMINE Negative ng/mL COCAINE METABOLITES Negative ng/mL BENZODIAZEPINES (STL) Negative ng/mL CANNABINOIDS POSITIVE ng/mL METHADONE Negative ng/mL OPIATES POSITIVE ng/mL CREATININE URINE/OTHERS 266.1 mg/dL H 47.0 -110.0 OXYCODONE (CXJNS-IGA-[place]) Negative ng/mL BUPRENORPHINE (STL-PB-MA) Negative ng/mL FENTANYL (STL-PB) Negative ng/mL Aug 19, 2024 10:00 AM [facility] CBC BLOOD Specimen Type: BLOOD No comment entered. Ordering Provider: DANIEL GOMEZ Report Released Date/Time: Aug 16, 2024 03:45 PM Reporting Lab: [facility] [phone] Performing Lab: [facility] [place] [phone] WBC 12.7 10*3/uL H 3.6-11.2 RBC 4.19 [...] 09:[address] [facility] COMPREHENSIVE METABOLIC PANEL PLASMA Specimen Type: PLASMA Comment: No hemolysis noted. Ordering Provider: DANIEL GOMEZ Report Released Date/Time: Aug 16, 2024 03:45 PM Reporting Lab: [facility] [phone] Performing Lab: [facility] [place] [phone] CREATININE 0.75 mg/dL 0.60-1.10 UREA NITROGEN 12.0 [...] [facility] [place] [address] Performing Lab: [facility] [place] [address] PROTIME 9.4 s 9.4-12.5 INR VALUE 0.8 {INR} Aug 19, 2024 09:59 AM [facility] ETHANOL SERUM/PLASMA (STL) PLASMA Specimen Typ e: PLASMA Comment: No hemolysis noted. Ordering Provider: DANIEL GOMEZ Report Released Date/Time: Aug 16, 2024 03:45 PM Reporting Lab: [facility] [phone] Performing Lab: [facility] [address] ETHANOL SERUM/PLASMA (STL) <10.0 mg/dL 0 -10 Aug 19, 2024 09:59 AM [facility] GGT GAMMA-GT PLASMA Specimen Type: PLASM A No comment entered. Ordering Provider: DANIEL GOMEZ Report Released Date/Time: Aug 16, 2024 03:45 PM Reporting Lab: [facility] [address] [facility] [address] Performing Lab: [facility] [address] [facility] [phone] GGT GAMMA-GT 14 [IU]/L 12-64 Aug 19, 2024 09:[address] [facility] MAGNESIUM PLASMA Specimen Type: PLASM A Comment: No hemolysis noted. Ordering Provider: DANIEL GOMEZ Report Released Date/Time: Aug 16, 2024 03:45 PM Reporting Lab: [facility] [phone] Performing Lab: [facility] [phone] MAGNESIUM 2.1 mg/dL 1.6-2.6 Aug 19, 2024 09:59 AM [facility] CPK SERUM Specimen Type: SERUM No comment entered. Ordering Provider: DANIEL GOMEZ Report Released Date/Time: Aug 16, 2024 03:45 PM Reporting Lab: [facility] [phone] Performing Lab: [facility] [address] CPK 37 U/L 29-168 Aug 19, 2024 09:[address] [facility] HEP C Ab HCV Ab (STL) SERUM Specimen Type: SE RUM No comment entered. Ordering Provider: DANIEL GOMEZ Report Released Date/Time: Aug 16, 2024 03:45 PM Reporting Lab: [facility] [address] [facility] [phone] Performing Lab: [facility] [address] [facility] [phone] HEP C Ab HCV Ab (STL) Nonreactive Nonrea ctive Aug 19, 2024 09:[address] [facility] HIV COMBO FOURTH GENERATION (STL) SERUM Speci men Type: SERUM No comment entered. Ordering Provider: DANIEL GOMEZ Report Released Date/Time: Aug 16, 2024 03:45 PM Reporting Lab: [facility] [address] [facility] [address] Performing Lab: [facility] [address] [facility] [phone] HIV COMBO FOURTH GENERATION (STL) Nonreactive Nonreactive Encounter Notes: All associated encounter notes This section contains the clinical notes associated to the Encounter. Date/Time Encounter Note(s) Provider Source Aug 27, 2024 09:00 PM PSYCHIATRY GROUP COUNSELING NOTE: LOCAL TITLE: [facility] PSYCHIATRY GROUP NOTE STL STANDARD TITLE: PSYCHIATRY GROUP COUNSELING NOTE DATE OF NOTE: AUG 27, 2024@21:00 ENTRY DATE: AUG 27, 2024@22:45:56 AUTHOR: DELROY EXP COSIGNER: URGENCY: STATUS: COMPLETED Diagnosis: Substance Use Disorder Discipline: Nursing Group Time: Group Topic: Wrap Up Group Group Content: was one of Twenty-Six who attended this evening's Wrap-Up group. All the Veterans endorsed a positive aspect from today's treatment program. Well wishes were shared with the completing the program tomorrow. New Veterans were welcomed into the program. Random questions were answered, and Unitrules were reiterated. A short inspirational message was read by the Veterans completing the program. The Serenity prayer was said by those wishing to participate and snacks were given out. All the Veterans were thanked for their courage in coming into the program and were also thanked for their service. Group Goal: The goal of Wrap-Up group is to end the day on a positive note, share and reflect on the day's events. Goal achieved. Group Response: Actively engaged Number of Patients Attending Group: / BETSY POTTS LPN LICENSED PRACTICAL NURSE Signed: 08/27/2024 22:57 BETSY POTTS
--- OUTSIDE RECORDS SUMMARY | 2025-02-23 11:00 | XMS_ITS | Encounter Summary ---
Author Name [facility] Organization [facility] Address [address] [place] [address] Support Name Relationship Address Phone FUAD CHRISTINE [...] MEDIC AID Aug 02, 2015 MEDICAI D [id number] [phone] STACIE JENNIFER PATIENT [facility] (WNR) MEDICAID MEDIC AID [facility] (WNR) Dec 01, 2023 MEDICAI D [id number] STACIE JENNIFER PATIENT Selected Encounter This section includes the information on record at [place] for the Encounter. Date/Time Encounter Type Encounter Description Reason Provider Source Sep 03, 2024 11:15 AM GROUP PSYCHOTHERAPY [facility] GROUP ICD-10-CM F11.90 Opioid use, unspecified, uncomplicated ORTBALS,MACRINA TA IHE Encounter Template Text not used by [place] Assessments - Encounter Diagnoses This section includes the primary and secondary diagnoses documented for the Encounter. Date/Time Primary/Secondary Diagnosis Diagnosis Name Provider Source Sep 03, 2024 12:45 PM PRIMARY Opioid use, unspecified, uncomplicated ORTBALS,ALMA DELIA [facility] Plan of Treatment: Future Appointments (+ 6 months) and Future Tests (+/- 45 days) The Plan of Treatment section includes future care activities for the patient from all [facility]. This section includes future appointments and future orders which are active, pending or scheduled. Future Appointments This section includes appointments that were scheduled to occur 6 months from the date of the Encounter, up to a maximum of 20 appointments. The data comes from all [facility]. Appointment Date/Time Appointment Type Appointme nt Facility Name Sep 10, 2024 12:30 PM AMBULATORY - PSYCHIATRY [facility] Sep 12, 2024 06:00 PM AMBULATORY - PSYCHIATRY [facility] Sep 17, 2024 06:00 PM AMBULATORY - PSYCHIATRY [facility] Sep 19, 2024 06:00 PM AMBULATORY - PSYCHIATRY [facility] Sep 26, 2024 06:00 PM AMBULATORY - PSYCHIATRY [facility] Oct 01, 2024 02:00 PM AMBULATORY - NONE [facility] Oct 09, 2024 03:00 PM AMBULATORY - MEDICINE [facility] Oct 16, 2024 01:00 PM AMBULATORY - PSYCHIATRY [facility] Oct 30, 2024 01:00 PM AMBULATORY - PSYCHIATRY [facility] Nov 27, 2024 01:00 PM AMBULATORY - PSYCHIATRY [facility] Dec 04, 2024 01:00 PM AMBULATORY - PSYCHIATRY [facility] Dec 11, 2024 01:00 PM AMBULATORY - PSYCHIATRY [facility] Dec 18, 2024 01:00 PM AMBULATORY - PSYCHIATRY [facility] Dec 25, 2024 01:00 PM AMBULATORY - PSYCHIATRY [facility] February 05, 2025 09:30 AM AMBULATORY - PSYCHIATRY [facility] Lab Results: +/- 30 [...] Comment Sep 03, 2024 12:00 PM [facility] URINE DRUG SCREEN (STL) URINE Specimen Type: URINE Comment: The cut-off value for Fentanyl was laboratory developed and its performance characteristics confirmed by the [facility] thru method comparison with reference laboratory and medication chart review. The laboratory is regulated under CLIA as qualified to perform high-complexity testing. Fentanyl is used for clinical purposes in conjunction with other laboratory tests. Ordering Provider: DANIEL GOMEZ Report Released Date/Time: Sep 02, 2024 08:27 PM Reporting Lab: [facility] [facility] [phone] Performing Lab: [facility] [facility] [address] ETHANOL <10.0 mg/dL 0-9 AMPHET/METHAMPHETAMINE Negative ng/mL COCAINE METABOLITES Negative ng/mL BENZODIAZEPINES (STL) Negative ng/mL CANNABINOIDS POSITIVE ng/mL METHADONE Negative ng/mL OPIATES Negative ng/mL CREATININE URINE/OTHERS 110.1 mg/dL H 47.0 -110.0 OXYCODONE ([id number]) Negative ng/mL BUPRENORPHINE (STL-PB-MA) Negative ng/mL FENTANYL (STL-PB) Negative ng/mL Aug 25, 2024 02:[address] [facility] URINE DRUG SCREEN (STL) URINE Specimen Type: URINE Comment: The cut-off value for Fentanyl was laboratory developed and its performance characteristics confirmed by the [facility] laboratory thru method comparison with reference laboratory and medication chart review. The laboratory is regulated under CLIA as qualified to perform high-complexity testing. Fentanyl is used for clinical purposes in conjunction with other laboratory tests. Ordering Provider: DANIEL GOMEZ Report Released Date/Time: Aug 24, 2024 07:24 PM Reporting Lab: [facility] [address] [facility] [address] Performing Lab: [facility] [address] [facility] [address] ETHANOL Negative mg/dL 0-20 AMPHET/METHAMPHETAMINE Negative ng/mL COCAINE METABOLITES Negative ng/mL BENZODIAZEPINES (STL) Negative ng/mL CANNABINOIDS POSITIVE ng/mL METHADONE Negative ng/mL OPIATES Negative ng/mL CREATININE URINE/OTHERS 39.0 mg/dL L 47-11 0 OXYCODONE ([id number]) Negative ng/mL BUPRENORPHINE (STL-PB-MA) Negative ng/mL FENTANYL (STL-PB) Negative ng/mL Aug 20, 2024 07:13 AM [facility] URINALYSIS W/ CX REFLEX (L-PB) URINE Specim en Type: URINE No comment entered. Ordering Provider: DANIEL GOMEZ Report Released Date/Time: Aug 19, 2024 11:04 AM Reporting Lab: [facility] [place] [address] Performing Lab: [facility] [place] [address] URINE COLOR Yellow Yellow U.BILIRUBIN Negative mg/dL [...] Aug 19, 2024 10:[address] [facility] URINALYSIS (STL-PB) URINE Specimen Type: URIN E No comment entered. Ordering Provider: DANIEL GOMEZ Report Released Date/Time: Aug 16, 2024 03:45 PM Reporting Lab: [facility] [facility] [address] Performing Lab: [facility] [place] [address] URINE COLOR Yellow Yellow U.BILIRUBIN Negative mg/dL [...] H Aug 19, 2024 10:08 AM [facility] TEST URINE (MA-STL) URINE Specimen Type: URINE No comment entered. Ordering Provider: DANIEL GOMEZ Report Released Date/Time: Aug 16, 2024 03:45 PM Reporting Lab: [facility] [facility] [address] Performing Lab: [facility] [facility] [address] Qualitative Test NEG NEGAT URBAN Aug 19, 2024 10:08 AM [facility] URINE DRUG SCREEN (STL) URINE Specimen Type: URINE Comment: The cut-off value for Fentanyl was laboratory developed and its performance characteristics confirmed by the [facility] laboratory thru method comparison with reference laboratory and medication chart review. The laboratory is regulated under CLIA as qualified to perform high-complexity testing. Fentanyl is used for clinical purposes in conjunction with other laboratory tests. Ordering Provider: DANIEL GOMEZ Report Released Date/Time: Aug 16, 2024 03:45 PM Reporting Lab: [facility] [facility] [address] Performing Lab: [facility] [facility] [address] ETHANOL Negative mg/dL 0-20 AMPHET/METHAMPHETAMINE Negative ng/mL COCAINE METABOLITES Negative ng/mL BENZODIAZEPINES (STL) Negative ng/mL CANNABINOIDS POSITIVE ng/mL METHADONE Negative ng/mL OPIATES POSITIVE ng/mL CREATININE URINE/OTHERS 266.1 mg/dL H 47.0 -110.0 OXYCODONE ([id number]) Negative ng/mL BUPRENORPHINE (STL-PB-MA) Negative ng/mL FENTANYL (STL-PB) Negative ng/mL Aug 19, 2024 10:[address] [facility] CBC BLOOD Specimen Type: BLOOD No comment entered. Ordering Provider: DANIEL GOMEZ Report Released Date/Time: Aug 16, 2024 03:45 PM Reporting Lab: [facility] [facility] [address] Performing Lab: [facility] [facility] [address] WBC 12.7 10*3/uL H 3.6-11.2 RBC 4.19 [...] 20 Aug 19, 2024 09:59 AM [facility] COMPREHENSIVE METABOLIC PANEL PLASMA Specimen Type: PLASMA Comment: No hemolysis noted. Ordering Provider: DANIEL GOMEZ Report Released Date/Time: Aug 16, 2024 03:45 PM Reporting Lab: [facility] [facility] [address] Performing Lab: [facility] [facility] [address] CREATININE 0.75 mg/dL 0.60-1.10 UREA NITROGEN 12.0 [...] >60 Aug 19, 2024 09:[address] [facility] PT/INR NEW (STL-MA) PLASMA Specimen Type: PLAS MA No comment entered. Ordering Provider: DANIEL GOMEZ Report Released Date/Time: Aug 16, 2024 03:45 PM Reporting Lab: [facility] [facility] [address] Performing Lab: [facility] [facility] [address] PROTIME 9.4 s 9.4-12.5 INR VALUE 0.8 {INR} Aug 19, 2024 09:[address] [facility] ETHANOL SERUM/PLASMA (STL) PLASMA Specimen Typ e: PLASMA Comment: No hemolysis noted. Ordering Provider: DANIEL GOMEZ Report Released Date/Time: Aug 16, 2024 03:45 PM Reporting Lab: [facility] [facility] [address] Performing Lab: [facility] [address] ETHANOL SERUM/PLASMA (STL) <10.0 mg/dL 0 -10 Aug 19, 2024 09:[address] [facility] GGT GAMMA-GT PLASMA Specimen Type: PLASM A No comment entered. Ordering Provider: DANIEL GOMEZ Report Released Date/Time: Aug 16, 2024 03:45 PM Reporting Lab: [facility] [address] [facility] [place] [address] Performing Lab: [facility] [address] [facility] [address] GGT GAMMA-GT 14 [IU]/L 12-64 Aug 19, 2024 09:59 AM [facility] MAGNESIUM PLASMA Specimen Type: PLASM A Comment: No hemolysis noted. Ordering Provider: DANIEL GOMEZ Report Released Date/Time: Aug 16, 2024 03:45 PM Reporting Lab: [facility] [facility] [address] Performing Lab: [facility] [address] MAGNESIUM 2.1 mg/dL 1.6-2.6 Aug 19, 2024 09:59 AM [facility] CPK SERUM Specimen Type: SERUM No comment entered. Ordering Provider: DANIEL GOMEZ Report Released Date/Time: Aug 16, 2024 03:45 PM Reporting Lab: [facility] [facility] [address] Performing Lab: [facility] [address] CPK 37 U/L 29-168 Aug 19, 2024 09:59 AM [facility] HEP C Ab HCV Ab (STL) SERUM Specimen Type: SE RUM No comment entered. Ordering Provider: DANIEL GOMEZ Report Released Date/Time: Aug 16, 2024 03:45 PM Reporting Lab: [facility] [address] [facility] [address] Performing Lab: [facility] [address] [facility] [address] HEP C Ab HCV Ab (STL) Nonreactive Nonrea ctive Aug 19, 2024 09:59 AM [facility] HIV COMBO FOURTH GENERATION (STL) SERUM Speci men Type: SERUM No comment entered. Ordering Provider: DANIEL GOMEZ Report Released Date/Time: Aug 16, 2024 03:45 PM Reporting Lab: [facility] [address] [facility] [address] Performing Lab: [facility] [address] [facility] [address] HIV COMBO FOURTH GENERATION (STL) Nonreactive Nonreactive Social History: Smoking Status (Most current) and Tobacco Use (All prior to encounter date) This section includes the most current, and the historical, smoking and tobacco- related health factors from the [place] facility where the Encounter took place. Current Smoking Status This section includes the most current smoking, or tobacco-related health factor, from the [place] facility where the Encounter took place. Date/Time Current Smoking Status Comment Facil ity Aug 19, 2024 10:33 AM VA-TOBACCO USE ALFONZO RY DAY CIGARETTES [facility] Tobacco Use History This section includes a history of the smoking, or tobacco-related health factors, that were collected on or before the date of the Encounter. The data comes from the [place] facility where the Encounter took place. Date/Time Smoking Status/Tobacco Use Comment F acility Aug 19, 2024 10:33 AM VA-TOBACCO SCREEN FOLLOW-UP [facility] Aug 19, 2024 10:33 AM VA-TOBACCO USE ADVICE [facility] Aug 19, 2024 10:33 AM VA-TOBACCO USE GREEN MARKETER NO [facility] Aug 19, 2024 10:33 AM VA-TOBACCO USE ALFONZO RY DAY CIGARETTES [facility] Aug 19, 2024 10:33 AM VA-TOBACCO USE MED YES [facility] Aug 19, 2024 10:33 AM VA-TOBACCO USE [place] 30 MIN OF WAKEUP [facility] Encounter Notes: All associated encounter notes This section contains the clinical notes associated to the Encounter. Date/Time Encounter Note(s) Provider Source Sep 03, 2024 12:41 PM PSYCHOLOGY GROUP Alis VÁZQUEZ NOTE: LOCAL TITLE: PSYCHOLOGY GROUP NOTE STL STANDARD TITLE: PSYCHOLOGY GROUP COUNSELING NOTE DATE OF NOTE: SEP 03, 2024@12:41 ENTRY DATE: SEP 03, 2024@12:41:06 AUTHOR: ALMA DELIA STEVENS COSIGNER: URGENCY: STATUS: COMPLETED Date: 09/03/24 Group Title: Sleep Hygiene Education Group Session Length: 50 minutes CPT Code: 07306 Number of Participants: 9 Group Time: 11:15 Therapy Format: psychoeducational group Treatment Goals for this Episode of Care: Consistent with the treatment plan listed for this (which was developed in collaboration with the upon admission to the program), the goal of this group is for the to gain increased understanding of the role sleep in mental health and how to establish healthy sleep hygiene. Intervention Type: Psychoeducational group regarding sleep hygiene. - The purpose and agenda for this session were shared with participants at the outset of the group. Participants were given an opportunity to ask questions before proceeding. -Explained circadian rhythms and the importance of a regular sleep schedule for maintaining healthy rhythms. Reviewed the functions/benefits of sleep, problems caused by insufficient sleep, sleep disorders, the optimal amount of sleep, sleep disrupting factors, and habits supportive of good sleep. -Provided opportunity for group participants to ask any questions and share personal experiences related to session material. During their initial intake assessment with a [facility] body team member and at the time of admission, the was informed of the voluntary nature of group participation, along with any potential benefits, risks, or complications, and consented. Please review documentation of the intake and admission for more information. Risk Assessment: Ringling did not verbalize any ideation of harm to self or others during this group. appears sustainable at the present level of care. Level of engagement: (x ) Active engagement. Shared personal reflections and/or helpful feedback ( ) Passive participation. Responded minimally and only when called upon. ( ) Non-participation. was quiet throughout group. ( x ) arrived 10 minutes tardy reportedly due to consulting with pharmacy Diagnosis: Opioid Use Disorder /sanjeev/ ALMA DELIA STEVENS Psychologist [address] [place] [address] / THANH Signed: 09/03/2024 12:48 ALMA DELIA STEVENS [facility]
--- OUTSIDE RECORDS SUMMARY | 2025-02-23 11:00 | XMS_ITS | Encounter Summary ---
Author Name [facility] [place] [facility] Address [address] [place] [id number] Support Name Relationship Address Phone FUAD CHRISTINE [...] MEDIC AID Aug 02, 2015 MEDICAI D [id number] [phone] STACIE JENNIFER PATIENT [facility] (WNR) MEDICAID MEDIC AID [facility] (WNR) Dec 01, 2023 MEDICAI D [id number] STACIE AYEJENNIFER PATIENT Selected Encounter This section includes the information on record at [place] for the Encounter. Date/Time Encounter Type Encounter Description Reason Provider Source Aug 26, 2024 10:15 AM AL[facility] AND/OR DRUG SERVICES [facility] ICD-10-CM F12.20 Cannabis dependence, uncomplicated SUGEY ROSAS IHPeggy Encounter Template Text not used by [place] Assessments - Encounter Diagnoses This section includes the primary and secondary diagnoses documented for the Encounter. Date/Time Primary/Secondary Diagnosis Diagnosis Name Provider Source Aug 26, 2024 04:10 PM PRIMARY Cannabis dependence, uncomplicated TOMI ROSAS [facility] Aug 26, 2024 04:10 PM SECONDARY Alcohol use, unspecified, uncomplicated TOMI ROSAS [facility] Aug 26, 2024 04:10 PM SECONDARY Cocaine use, unspecified, uncomplicated TOMI ROSAS [facility] Aug 26, 2024 04:10 PM SECONDARY Opioid use, unspecified, uncomplicated TOMI ROSAS [facility] Plan of Treatment: Future Appointments (+ 6 months) and Future Tests (+/- 45 days) The Plan of Treatment section includes future care activities for the patient from [facility] [place] [facility] This section includes future appointments and future orders which are active, pending or scheduled. Future Appointments This section includes appointments that were scheduled to occur 6 months from the date of the Encounter, up to a maximum of 20 appointments. The data comes from all [facility] facilities. Appointment Date/Time Appointment Type Appointme nt Facility Name Sep 10, 2024 12:30 PM AMBULATORY - PSYCHIATRY [facility] Sep 12, 2024 06:00 PM AMBULATORY - PSYCHIATRY [facility] Sep 17, 2024 06:00 PM AMBULATORY - PSYCHIATRY [facility] Sep 19, 2024 06:00 PM AMBULATORY - PSYCHIATRY [facility] Sep 26, 2024 06:00 PM AMBULATORY - PSYCHIATRY [facility] Oct 01, 2024 02:00 PM AMBULATORY - NONE [facility] Oct 09, 2024 03:00 PM AMBULATORY - MEDICINE [facility] Oct 16, 2024 01:00 PM AMBULATORY - PSYCHIATRY [facility] Oct 30, 2024 01:00 PM AMBULATORY - PSYCHIATRY [facility] Nov 27, 2024 01:00 PM AMBULATORY - PSYCHIATRY [facility] Dec 04, 2024 01:00 PM AMBULATORY - PSYCHIATRY [facility] Dec 11, 2024 01:00 PM AMBULATORY - PSYCHIATRY [facility] Dec 18, 2024 01:00 PM AMBULATORY - PSYCHIATRY [facility] Dec 25, 2024 01:00 PM AMBULATORY - PSYCHIATRY [facility] February 05, 2025 09:30 AM AMBULATORY - PSYCHIATRY [facility] Lab Results: +/- 30 days of the encounter This section includes the Chemistry and Hematology Lab Results on record with [place] for the patient. Radiology Reports and Pathology [...] performance characteristics confirmed by the [facility] laboratory thru method comparison with reference laboratory and medication chart review. The laboratory is regulated under CLIA as qualified to perform high-complexity testing. Fentanyl is used for clinical purposes in conjunction with other laboratory tests. Ordering Provider: DANIEL GOMEZ Report Released Date/Time: Sep 02, 2024 08:27 PM Reporting Lab: [facility] [address] [facility] [phone] Performing Lab: [facility] [facility] [address] ETHANOL <10.0 mg/dL 0-9 AMPHET/METHAMPHETAMINE Negative ng/mL COCAINE METABOLITES Negative ng/mL BENZODIAZEPINES (STL) Negative ng/mL CANNABINOIDS POSITIVE ng/mL METHADONE Negative ng/mL OPIATES Negative ng/mL CREATININE URINE/OTHERS 110.1 mg/dL H 47.0 -110.0 OXYCODONE ([id number]) Negative ng/mL BUPRENORPHINE (STL-PB-MA) Negative ng/mL FENTANYL (STL-PB) Negative ng/mL Aug 25, 2024 02:03 PM [facility] URINE DRUG SCREEN (STL) URINE Specimen Type: URINE Comment: The cut-off value for Fentanyl was laboratory developed and its performance characteristics confirmed by the [facility] laboratory thru method comparison with reference laboratory and medication chart review. The laboratory is regulated under CLIA as qualified to perform high-complexity testing. Fentanyl is used for clinical purposes in conjunction with other laboratory tests. Ordering Provider: DANIEL GOMEZ Report Released Date/Time: Aug 24, 2024 07:24 PM Reporting Lab: [facility] [address] [place] [phone] Performing Lab: [facility] [address] [place] [address] ETHANOL Negative mg/dL 0-20 AMPHET/METHAMPHETAMINE Negative ng/mL COCAINE METABOLITES Negative ng/mL BENZODIAZEPINES (STL) Negative ng/mL CANNABINOIDS POSITIVE ng/mL METHADONE Negative ng/mL OPIATES Negative ng/mL CREATININE URINE/OTHERS 39.0 mg/dL L 47-11 0 OXYCODONE ([id number]) Negative ng/mL BUPRENORPHINE (STL-PB-MA) Negative ng/mL FENTANYL (STL-PB) Negative ng/mL Aug 20, 2024 07:13 AM [facility] URINALYSIS W/ CX REFLEX (STL-PB) URINE Specim en Type: URINE No comment entered. Ordering Provider: DANIEL GOMEZ Report Released Date/Time: Aug 19, 2024 11:04 AM Reporting Lab: [facility] [facility] [phone] Performing Lab: [facility] [address] [facility] [phone] URINE COLOR Yellow Yellow U.BILIRUBIN Negative mg/dL [...] 19, 2024 10:08 AM [facility] URINALYSIS (STL-PB) URINE Specimen Type: URIN E No comment entered. Ordering Provider: DANIEL GOMEZ Report Released Date/Time: Aug 16, 2024 03:45 PM Reporting Lab: [facility] [phone] Performing Lab: [facility] [address] [place] [address] URINE COLOR Yellow Yellow U.BILIRUBIN Negative mg/dL [...] Aug 16, 2024 03:45 PM Reporting Lab: [facility] [place] [address] Performing Lab: [facility] [address] [place] [address] Qualitative Test NEG NEGAT URBAN Aug 19, 2024 10:08 AM [facility] URINE DRUG SCREEN (STL) URINE Specimen Type: URINE Comment: The cut-off value for Fentanyl was laboratory developed and its performance characteristics confirmed by the [facility] laboratory thru method comparison with reference laboratory and medication chart review. The laboratory is regulated under CLIA as qualified to perform high-complexity testing. Fentanyl is used for clinical purposes in conjunction with other laboratory tests. Ordering Provider: DANIEL GOMEZ Report Released Date/Time: Aug 16, 2024 03:45 PM Reporting Lab: [facility] [place] [address] Performing Lab: [facility] [place] [address] ETHANOL Negative mg/dL 0-20 AMPHET/METHAMPHETAMINE Negative ng/mL COCAINE METABOLITES Negative ng/mL BENZODIAZEPINES (STL) Negative ng/mL CANNABINOIDS POSITIVE ng/mL METHADONE Negative ng/mL OPIATES POSITIVE ng/mL CREATININE URINE/OTHERS 266.1 mg/dL H 47.0 -110.0 OXYCODONE ([id number]) Negative ng/mL BUPRENORPHINE (STL-PB-MA) Negative ng/mL FENTANYL (STL-PB) Negative ng/mL Aug 19, 2024 10:00 AM [facility] CBC BLOOD Specimen Type: BLOOD No comment entered. Ordering Provider: DANIEL GOMEZ Report Released Date/Time: Aug 16, 2024 03:45 PM Reporting Lab: [facility] [facility] [address] Performing Lab: [facility] [facility] [address] WBC 12.7 10*3/uL H 3.6-11.2 RBC 4.19 [...] 2024 09:59 AM [facility] COMPREHENSIVE METABOLIC PANEL PLASMA Specimen Type: PLASMA Comment: No hemolysis noted. Ordering Provider: DANIEL GOMEZ Report Released Date/Time: Aug 16, 2024 03:45 PM Reporting Lab: [facility] [place] [address] Performing Lab: [facility] [place] [address] CREATININE 0.75 mg/dL 0.60-1.10 UREA NITROGEN 12.0 [...] 104.44 >60 Aug 19, 2024 09:59 AM [facility] PT/INR NEW (STL-MA) PLASMA Specimen Type: PLAS MA No comment entered. Ordering Provider: DANIEL GOMEZ Report Released Date/Time: Aug 16, 2024 03:45 PM Reporting Lab: [facility] [place] [address] Performing Lab: [facility] [place] [address] PROTIME 9.4 s 9.4-12.5 INR VALUE 0.8 {INR} Aug 19, 2024 09:59 AM [facility] ETHANOL SERUM/PLASMA (STL) PLASMA Specimen Typ e: PLASMA Comment: No hemolysis noted. Ordering Provider: DANIEL GOMEZ Report Released Date/Time: Aug 16, 2024 03:45 PM Reporting Lab: [facility] [place] [address] Performing Lab: [facility] [facility] [address] ETHANOL SERUM/PLASMA (STL) <10.0 mg/dL 0 -10 Aug 19, 2024 09:59 AM [facility] GGT GAMMA-GT PLASMA Specimen Type: PLASM A No comment entered. Ordering Provider: DANIEL GOMEZ Report Released Date/Time: Aug 16, 2024 03:45 PM Reporting Lab: [facility] [address] [facility] [address] Performing Lab: [facility] [address] [facility] [address] GGT GAMMA-GT 14 [IU]/L 12-64 Aug 19, 2024 09:59 AM [facility] MAGNESIUM PLASMA Specimen Type: PLASM A Comment: No hemolysis noted. Ordering Provider: DANIEL GOMEZ Report Released Date/Time: Aug 16, 2024 03:45 PM Reporting Lab: [facility] [facility] [address] Performing Lab: [facility] [address] [facility] [address] MAGNESIUM 2.1 mg/dL 1.6-2.6 Aug 19, 2024 09:59 AM [facility] CPK SERUM Specimen Type: SERUM No comment entered. Ordering Provider: DANIEL GOMEZ Report Released Date/Time: Aug 16, 2024 03:45 PM Reporting Lab: [facility] [facility] [address] Performing Lab: [facility] [address] [facility] [address] CPK 37 U/L 29-168 Aug 19, 2024 09:59 AM [facility] HEP C Ab HCV Ab (STL) SERUM Specimen Type: SE RUM No comment entered. Ordering Provider: DANIEL GOMEZ Report Released Date/Time: Aug 16, 2024 03:45 PM Reporting Lab: [facility] [address] [facility] [address] Performing Lab: [facility] [address] [facility] [address] HEP C Ab HCV Ab (STL) Nonreactive Nonrea ctive Aug 19, 2024 09:59 AM [facility] HIV COMBO FOURTH GENERATION (STL) SERUM Speci men Type: SERUM No comment entered. Ordering Provider: DANIEL GOMEZ Report Released Date/Time: Aug 16, 2024 03:45 PM Reporting Lab: [facility] [address] [facility] [address] Performing Lab: [facility] [address] [facility] [address] HIV COMBO FOURTH GENERATION (STL) Nonreactive Nonreactive Social History: Smoking Status (Most current) and Tobacco Use (All prior to encounter date) This section includes the most current, and the historical, smoking and tobacco- related health factors from the [place] facility where the Encounter took place. Current Smoking Status This section includes the most current smoking, or tobacco-related health factor, from the [place] facility where the Encounter took place. Date/Time Current Smoking Status Comment Nan ity Aug 19, 2024 10:33 AM VA-TOBACCO USE ALFONZO RY DAY CIGARETTES [facility] Tobacco Use History This section includes a history of the smoking, or tobacco-related health factors, that were collected on or before the date of the Encounter. The data comes from the [place] facility where the Encounter took place. 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 [facility] Aug 19, 2024 [...] Encounter Note(s) Provider Source Aug 26, 2024 04:02 PM ADDICTION PSYCHIAT RY NOTE: LOCAL TITLE: [facility] STANDARD TITLE: ADDICTION PSYCHIATRY NOTE DATE OF NOTE: AUG 26, 2024@16:02 ENTRY DATE: AUG 26, 2024@16:02:43 AUTHOR: TOMI ROSAS EXP COSIGNER: URGENCY: STATUS: COMPLETED REGULAR GROUP GROUP TIME:10:15 AM - 11:00 AM DURATION OF GROUP: 45 MINUTES NUMBER IN ATTENDANCE: 19 OBJECTIVE OF GROUP:To allow veterans to better understand problems that may have occurred early in life, how these problems may be impacting challenges they experience today and briefly discuss resilience. INTERVENTIONS: Staff and vets wore masks appropriately and social distancing was enforced. -Discussed Positive stress response, tolerable stress response and toxic stress response -List some adverse childhood experiences and protective expriences a child might experience growing up. -Provide examples of resilience and discuss. -Encouraged veterans to share answers and personal feedback LEVEL OF ENGAGEMENT:Active, Participated meaningfully RESPONSE TO INTERVENTION: (Optional) RISK ASSESSMENT: does not have a suicide flag. He was actively engaged in group and did not verbalize any suicidal ideations, plans, thoughts. PLAN: No measurements were used in this group. DIAGNOSIS:Cannabis/Alcohol /Cocaine/Opioids /es/ TOMI ROSAS Addiction Therapist, LEVI DUONG / THANH Signed: 08/26/2024 16:16 TOMI ROSAS [facility]
--- OUTSIDE RECORDS SUMMARY | 2025-02-23 11:00 | XMS_ITS ---
Author Name [facility] [place] Organization [place] Address [address] [place] [id number] Support Name Relationship Address Phone FUAD CHRISTINE [...] MEDIC AID Aug 02, 2015 MEDICAI D [id number] [phone] STACIE AYEJENNIFER PATIENT [facility] (WNR) MEDICAID MEDIC AID [facility] (WNR) Dec 01, 2023 MEDICAI D [id number] STACIE AYEJENNIFER PATIENT Selected Encounter This section includes the information on record at [place] for the Encounter. Date/Time Encounter Type Encounter Description Reason Provider Source Aug 28, 2024 10:15 AM COPY LATHE TENDER REVIEW SCHEDULING COORDINATOR GROUP COPY LATHE TENDER SERVICE - GROUP ICD-10-CM Z71.81 Spiritual or pentecostalism counseling JULIO ZELAYA [facility] Encounter Template Text not used by [place] Assessments - Encounter Diagnoses This section includes the primary and secondary diagnoses documented for the Encounter. Date/Time Primary/Secondary Diagnosis Diagnosis Name Provider Source Aug 28, 2024 01:03 PM PRIMARY Spiritual or pentecostalism counseling JULIO ZELAYA [facility] Plan of Treatment: Future Appointments (+ 6 months) and Future Tests (+/- 45 days) The Plan of Treatment section includes future care activities for the patient from all [place] [facility] This section includes future appointments and future orders which are active, pending or scheduled. Future Appointments This section includes appointments that were scheduled to occur 6 months from the date of the Encounter, up to a maximum of 20 appointments. The data comes from all [place] treatment facilities. Appointment Date/Time Appointment Type Appointme nt Facility Name Sep 10, 2024 12:30 PM AMBULATORY - PSYCHIATRY [facility] Sep 12, 2024 06:00 PM AMBULATORY - PSYCHIATRY [facility] Sep 17, 2024 06:00 PM AMBULATORY - PSYCHIATRY [facility] Sep 19, 2024 06:00 PM AMBULATORY - PSYCHIATRY [facility] Sep 26, 2024 06:00 PM AMBULATORY - PSYCHIATRY [facility] Oct 01, 2024 02:00 PM AMBULATORY - NONE [facility] Oct 09, 2024 03:00 PM AMBULATORY - MEDICINE [facility] Oct 16, 2024 01:00 PM AMBULATORY - PSYCHIATRY [facility] Oct 30, 2024 01:00 PM AMBULATORY - PSYCHIATRY [facility] Nov 27, 2024 01:00 PM AMBULATORY - PSYCHIATRY [facility] Dec 04, 2024 01:00 PM AMBULATORY - PSYCHIATRY [facility] Dec 11, 2024 01:00 PM AMBULATORY - PSYCHIATRY [facility] Dec 18, 2024 01:00 PM AMBULATORY - PSYCHIATRY [facility] Dec 25, 2024 01:00 PM AMBULATORY - PSYCHIATRY [facility] February 05, 2025 09:30 AM AMBULATORY - PSYCHIATRY [facility] Lab Results: +/- 30 days of the [...] Type Comment Sep 03, 2024 12:00 PM [facility] URINE DRUG SCREEN (STL) URINE Specimen Type: URINE Comment: The cut-off value for Fentanyl was laboratory developed and its performance characteristics confirmed by the [facility] laboratory thru method comparison with reference laboratory and medication chart review. The laboratory is regulated under CLIA as qualified to perform high-complexity testing. Fentanyl is used for clinical purposes in conjunction with other laboratory tests. Ordering Provider: DANIEL GOMEZ Report Released Date/Time: Sep 02, 2024 08:27 PM Reporting Lab: [facility] [facility] [address] Performing Lab: [facility] [address] ETHANOL <10.0 mg/dL 0-9 AMPHET/METHAMPHETAMINE Negative ng/mL COCAINE METABOLITES Negative ng/mL BENZODIAZEPINES (STL) Negative ng/mL CANNABINOIDS POSITIVE ng/mL METHADONE Negative ng/mL OPIATES Negative ng/mL CREATININE URINE/OTHERS 110.1 mg/dL H 47.0 -110.0 OXYCODONE (KDCPZ-UHQ-PR) Negative ng/mL BUPRENORPHINE (STL-PB-MA) Negative ng/mL FENTANYL (STL-PB) Negative ng/mL Aug 25, 2024 02:03 PM [facility] URINE DRUG SCREEN (STL) URINE Specimen Type: URINE Comment: The cut-off value for Fentanyl was laboratory developed and its performance characteristics confirmed by the [facility] laboratory thru method comparison with reference laboratory and medication chart review. The laboratory is regulated under CLIA as qualified to perform high-complexity testing. Fentanyl is used for clinical purposes in conjunction with other laboratory tests. Ordering Provider: DANIEL GOMEZ Report Released Date/Time: Aug 24, 2024 07:24 PM Reporting Lab: [facility] [address] [facility] [address] Performing Lab: [facility] [address] [facility] [address] ETHANOL Negative mg/dL 0-20 AMPHET/METHAMPHETAMINE Negative ng/mL COCAINE METABOLITES Negative ng/mL BENZODIAZEPINES (STL) Negative ng/mL CANNABINOIDS POSITIVE ng/mL METHADONE Negative ng/mL OPIATES Negative ng/mL CREATININE URINE/OTHERS 39.0 mg/dL L 47-11 0 OXYCODONE (KAHLI-LDS-HP) Negative ng/mL BUPRENORPHINE (STL-PB-MA) Negative ng/mL FENTANYL (STL-PB) Negative ng/mL Aug 20, 2024 07:13 AM [facility] URINALYSIS W/ CX REFLEX (STL-PB) URINE Specim en Type: URINE No comment entered. Ordering Provider: DANIEL GOMEZ Report Released Date/Time: Aug 19, 2024 11:04 AM Reporting Lab: [facility] [address] [place] [address] Performing Lab: [facility] [address] [place] [address] URINE COLOR Yellow Yellow U.BILIRUBIN Negative mg/dL [...] 1.028 Aug 19, 2024 10:08 AM [facility] URINALYSIS (STL-PB) URINE Specimen Type: URIN E No comment entered. Ordering Provider: DANIEL GOMEZ Report Released Date/Time: Aug 16, 2024 03:45 PM Reporting Lab: [facility] [facility] [address] Performing Lab: [facility] [address] [place] [address] URINE COLOR Yellow Yellow U.BILIRUBIN Negative mg/dL [...] 1.035 H Aug 19, 2024 10:08 AM [facility] TEST URINE (MA-STL) URINE Specimen Type: URINE No comment entered. Ordering Provider: DANIEL GOMEZ Report Released Date/Time: Aug 16, 2024 03:45 PM Reporting Lab: [facility] [facility] [address] Performing Lab: [facility] [facility] [address] Qualitative Test NEG NEGAT URBAN Aug 19, 2024 10:08 AM [facility] URINE DRUG SCREEN (STL) URINE Specimen Type: URINE Comment: The cut-off value for Fentanyl was laboratory developed and its performance characteristics confirmed by the [facility] laboratory thru method comparison with reference laboratory and medication chart review. The laboratory is regulated under CLIA as qualified to perform high-complexity testing. Fentanyl is used for clinical purposes in conjunction with other laboratory tests. Ordering Provider: DANIEL GOMEZ Report Released Date/Time: Aug 16, 2024 03:45 PM Reporting Lab: [facility] [facility] [address] Performing Lab: [facility] [facility] [address] ETHANOL Negative mg/dL 0-20 AMPHET/METHAMPHETAMINE Negative ng/mL COCAINE METABOLITES Negative ng/mL BENZODIAZEPINES (STL) Negative ng/mL CANNABINOIDS POSITIVE ng/mL METHADONE Negative ng/mL OPIATES POSITIVE ng/mL CREATININE URINE/OTHERS 266.1 mg/dL H 47.0 -110.0 OXYCODONE (REBFZ-LEG-MK) Negative ng/mL BUPRENORPHINE (STL-PB-MA) Negative ng/mL FENTANYL (STL-PB) Negative ng/mL Aug 19, 2024 10:00 AM [facility] CBC BLOOD Specimen Type: BLOOD No comment entered. Ordering Provider: DANIEL GOMEZ Report Released Date/Time: Aug 16, 2024 03:45 PM Reporting Lab: [facility] [facility] [address] Performing Lab: [facility] [facility] [address] WBC 12.7 10*3/uL H 3.6-11.2 RBC 4.19 [...] 0.00-0. 20 Aug 19, 2024 09:59 AM [facility] COMPREHENSIVE METABOLIC PANEL PLASMA Specimen Type: PLASMA Comment: No hemolysis noted. Ordering Provider: DANIEL GOMEZ Report Released Date/Time: Aug 16, 2024 03:45 PM Reporting Lab: [facility] [facility] [address] Performing Lab: [facility] [facility] [address] CREATININE 0.75 mg/dL 0.60-1.10 UREA NITROGEN 12.0 [...] >60 Aug 19, 2024 09:59 AM [facility] PT/INR NEW (STL-MA) PLASMA Specimen Type: PLAS MA No comment entered. Ordering Provider: DANIEL GOMEZ Report Released Date/Time: Aug 16, 2024 03:45 PM Reporting Lab: [facility] [place] [address] Performing Lab: [facility] [facility] [address] PROTIME 9.4 s 9.4-12.5 INR VALUE 0.8 {INR} Aug 19, 2024 09:59 AM [facility] ETHANOL SERUM/PLASMA (STL) PLASMA Specimen Typ e: PLASMA Comment: No hemolysis noted. Ordering Provider: DANIEL GOMEZ Report Released Date/Time: Aug 16, 2024 03:45 PM Reporting Lab: [facility] [facility] [address] Performing Lab: [facility] [facility] [address] ETHANOL SERUM/PLASMA (STL) <10.0 mg/dL 0 -10 Aug 19, 2024 09:59 AM [facility] GGT GAMMA-GT PLASMA Specimen Type: PLASM A No comment entered. Ordering Provider: DANIEL GOMEZ Report Released Date/Time: Aug 16, 2024 03:45 PM Reporting Lab: [facility] [address] [facility] [address] Performing Lab: [facility] [address] [facility] [address] GGT GAMMA-GT 14 [IU]/L 12-64 Aug 19, 2024 09:59 AM [facility] MAGNESIUM PLASMA Specimen Type: PLASM A Comment: No hemolysis noted. Ordering Provider: DANIEL GOMEZ Report Released Date/Time: Aug 16, 2024 03:45 PM Reporting Lab: [facility] [facility] [address] Performing Lab: [facility] [facility] [address] MAGNESIUM 2.1 mg/dL 1.6-2.6 Aug 19, 2024 09:59 AM [facility] CPK SERUM Specimen Type: SERUM No comment entered. Ordering Provider: DANIEL GOMEZ Report Released Date/Time: Aug 16, 2024 03:45 PM Reporting Lab: [facility] [facility] [address] Performing Lab: [facility] [facility] [address] CPK 37 U/L 29-168 Aug 19, 2024 09:59 AM [facility] HEP C Ab HCV Ab (STL) SERUM Specimen Type: SE RUM No comment entered. Ordering Provider: DANIEL GOMEZ Report Released Date/Time: Aug 16, 2024 03:45 PM Reporting Lab: [facility] [address] [facility] [address] Performing Lab: [facility] [address] [facility] [address] HEP C Ab HCV Ab (STL) Nonreactive Nonrea ctive Aug 19, 2024 09:59 AM [facility] HIV COMBO FOURTH GENERATION (STL) SERUM Speci men Type: SERUM No comment entered. Ordering Provider: DANIEL GOMEZ Report Released Date/Time: Aug 16, 2024 03:45 PM Reporting Lab: [facility] [address] [facility] [address] Performing Lab: [facility] [address] [facility] [address] HIV COMBO FOURTH GENERATION (STL) Nonreactive Nonreactive Social History: Smoking Status (Most current) and Tobacco Use (All prior to encounter date) This section includes the most current, and the historical, smoking and tobacco- related health factors from the [facility] where the Encounter took place. Current Smoking Status This section includes the most current smoking, or tobacco-related health factor, from the [place] facility where the Encounter took place. Date/Time Current Smoking Status Comment Facil ity Aug 19, 2024 10:33 AM VA-TOBACCO USE ALFONZO RY DAY CIGARETTES [facility] Tobacco Use History This section includes a history of the smoking, or tobacco-related health factors, that were collected on or before the date of the Encounter. The data comes from the [place] facility where the Encounter took place. Date/Time Smoking Status/Tobacco Use Comment F acility Aug 19, 2024 10:33 AM VA-TOBACCO SCREEN FOLLOW-UP [facility] Aug 19, 2024 10:33 AM VA-TOBACCO USE ADVICE [facility] Aug 19, 2024 10:33 AM VA-TOBACCO USE REVIEW SCHEDULING COORDINATOR NO [facility] Aug 19, 2024 10:33 AM VA-TOBACCO USE ALFONZO RY DAY CIGARETTES [facility] Aug 19, 2024 10:33 AM VA-TOBACCO USE MED YES [facility] Aug 19, 2024 10:33 AM VA-TOBACCO USE WI 30 MIN OF WAKEUP [facility] Encounter Notes: All associated encounter notes This section contains the clinical notes associated to the Encounter. Date/Time Encounter Note(s) Provider Source Aug 28, 2024 12:57 PM PASTORAL CARE NOTE : LOCAL TITLE: PASTORAL CARE NOTE STANDARD TITLE: PASTORAL CARE NOTE DATE OF NOTE: AUG 28, 2024@12:57 ENTRY DATE: AUG 28, 2024@12:57:54 AUTHOR: JULIO ZELAYA COSIGNER: URGENCY: STATUS: COMPLETED PASTORAL CARE: BAPTISMAL PREPARATION CLASS GROUP LENGTH: 45 Minutes. LOCATION: Machine Shop Repair Technician's Office. CLASS: Baptismal Preparation. SESSION TOPIC: Biblical Truth about Pentecostalism Modeled by Amadou. DURATION: 45 minutes. ATTENDANCE: 2. OBJECTIVE: To discuss Veterans understanding of the meaning of Water Pentecostalism and to share a Biblical perspective from the Holy Scriptures (The Bible); with the example demonstrated by the Lord Amadou, the Louie. Also, to assist the Sylvester in being able to articulate his or her belief and purpose for participating in this spiritual experience. CONTENT: Machine Shop Repair Technician allowed Sylvester to share his personal jn and surrender, in accepting Amadou Palma as his Lord and Savior and being willing to follow the Lord in obedience to Water Pentecostalism. provided a Lesson based on Rocky the Methodist baptizing Amadou, at the [facility], with Scriptural reference from [place] 3:13-17. 1. The objection of Rocky (Kevin. 3:13-14): Louie's request refused at first as Rocky considered his own unworthiness for this task. 2. The obedience of Rocky (Kevin. 3:15): Rocky baptizes the Savior after the second request. 3. The Spirit's anointing (Kevin. 3:16). The Holy Spirit descends upon Amadou like a dove. 4. The Father's approval (Kevin. 3:17): The Voice of God the Father spoke from critical [facility] hospital, This is My Beloved Son in Whom I am well pleased. This Pentecostalism of the Savior was done in preparation for Amadou' [email or web address] ministry. understood the commitment and significance in following the Lord Tobar in Holy Pentecostalism. Machine Shop Repair Technician prayed with for forgiveness of sins and expressed gratitude for the prayer and preparation for the up-coming Pentecostalism. shared other family issues and Machine Shop Repair Technician provided appropriate counseling. Veterans expressed much gratitude in anticipation of the upcoming Pentecostalism on Monday, 31 August 2024 at 1600 hours. /sanjeev/ JULIO Underwood, Uatsdin Signed: 08/28/2024 13:03 JULIO ZELAYA [facility]
--- OUTSIDE RECORDS SUMMARY | 2025-02-23 11:00 | XMS_ITS | Encounter Summary ---
Author Name [facility] [facility] [place] Address [address] [place] [address] Support Name Relationship Address Phone FUAD CHRISTINE [...] MEDIC AID Aug 02, 2015 MEDICAI D [id number] [phone] JENNIFER QUINONES PATIENT [facility] (WNR) MEDICAID MEDIC AID [facility] (WNR) Dec 01, 2023 MEDICAI D [id number] JENNIFER QUINONES PATIENT Selected Encounter This section includes the information on record at [place] for the Encounter. Date/Time Encounter Type Encounter Description Reason Provider Source Aug 22, 2024 09:00 PM SELF-MGMT EDUC/TRAIN 5-8 PT SUBSTANCE USE DISORDR GRP ICD-10-CM F12.10 Cannabis abuse, uncomplicated PEREZ-MISTY NOEL Peggy Encounter Template Text not used by [place] Assessments - Encounter Diagnoses This section includes the primary and secondary diagnoses documented for the Encounter. Date/Time Primary/Secondary Diagnosis Diagnosis Name Provider Source Aug 22, 2024 10:42 PM PRIMARY Cannabis abuse, uncomplicated PEREZ-FO BETSY MUNGUIA [facility] Plan of Treatment: Future Appointments (+ 6 months) and Future Tests (+/- 45 days) The Plan of Treatment section includes future care activities for the patient from all [place] [facility] This section includes future appointments and future orders which are active, pending or scheduled. Future Appointments This section includes appointments that were scheduled to occur 6 months from the date of the Encounter, up to a maximum of 20 appointments. The data comes from all [place] treatment [facility]. Appointment Date/Time Appointment Type Appointme nt Facility Name Sep 10, 2024 12:30 PM AMBULATORY - PS[facility]IATRY [facility] Sep 12, 2024 06:00 [...] 02:00 PM AMBULATORY - NONE [facility] Oct 09, 2024 03:00 PM AMBULATORY - MEDICINE [facility] Oct 16, 2024 01:00 PM AMBULATORY - PSYCHIATRY [facility] Oct 30, 2024 01:00 PM AMBULATORY - PSYCHIATRY [facility] Nov 27, 2024 01:00 PM AMBULATORY - PSYCHIATRY [facility] Dec 04, 2024 01:00 PM AMBULATORY - PSYCHIATRY [facility] Dec 11, 2024 01:00 PM AMBULATORY - PSYCHIATRY [facility] Dec 18, 2024 01:00 PM AMBULATORY - PSYCHIATRY [facility] Dec 25, 2024 01:00 PM AMBULATORY - PSYCHIATRY [facility] February 05, 2025 09:30 AM AMBULATORY - PSYCHIATRY [facility] Lab Results: +/- 30 days [...] its performance characteristics confirmed by the [facility] laboratory thru method comparison with reference laboratory and medication chart review. The laboratory is regulated under CLIA as qualified to perform high-complexity testing. Fentanyl is used for clinical purposes in conjunction with other laboratory tests. Ordering Provider: DANIEL GOMEZ Report Released Date/Time: Sep 02, 2024 08:27 PM Reporting Lab: [facility] [phone] Performing Lab: [facility] [phone] ETHANOL <10.0 mg/dL 0-9 AMPHET/METHAMPHETAMINE Negative ng/mL COCAINE METABOLITES Negative ng/mL BENZODIAZEPINES (STL) Negative ng/mL CANNABINOIDS POSITIVE ng/mL METHADONE Negative ng/mL OPIATES Negative ng/mL CREATININE URINE/OTHERS 110.1 mg/dL H 47.0 -110.0 OXYCODONE ([id number]) Negative ng/mL BUPRENORPHINE (STL-PB-MA) Negative ng/mL FENTANYL (STL-PB) Negative ng/mL Aug 25, 2024 02:03 PM [facility] URINE DRUG SCREEN (STL) URINE Specimen Type: URINE Comment: The cut-off value for Fentanyl was laboratory developed and its performance characteristics confirmed by the [facility] laboratory thru method comparison with reference laboratory and medication chart review. The laboratory is regulated under CLIA as qualified to perform high-complexity testing. Fentanyl is used for clinical purposes in conjunction with other laboratory tests. Ordering Provider: DANIEL GOMEZ Report Released Date/Time: Aug 24, 2024 07:24 PM Reporting Lab: [facility] [address] [place] [address] Performing Lab: [facility] [address] [facility] [address] ETHANOL Negative mg/dL 0-20 AMPHET/METHAMPHETAMINE Negative ng/mL COCAINE METABOLITES Negative ng/mL BENZODIAZEPINES (STL) Negative ng/mL CANNABINOIDS POSITIVE ng/mL METHADONE Negative ng/mL OPIATES Negative ng/mL CREATININE URINE/OTHERS 39.0 mg/dL L 47-11 0 OXYCODONE ([id number]) Negative ng/mL BUPRENORPHINE (STL-PB-MA) Negative ng/mL FENTANYL (STL-PB) Negative ng/mL Aug 20, 2024 07:13 AM [facility] URINALYSIS W/ CX REFLEX (STL-PB) URINE Specim en Type: URINE No comment entered. Ordering Provider: DANIEL GOMEZ Report Released Date/Time: Aug 19, 2024 11:04 AM Reporting Lab: [facility] [place] [address] Performing Lab: [facility] [place] [address] URINE COLOR Yellow Yellow U.BILIRUBIN Negative mg/dL [...] GRAVITY 1.028 Aug 19, 2024 10:08 AM [facility] URINALYSIS (STL-PB) URINE Specimen Type: URIN E No comment entered. Ordering Provider: DANIEL GOMEZ Report Released Date/Time: Aug 16, 2024 03:45 PM Reporting Lab: [facility] [place] [address] Performing Lab: [facility] [place] [address] URINE COLOR Yellow Yellow U.BILIRUBIN Negative mg/dL [...] 1.035 H Aug 19, 2024 10:08 AM [facility] TEST URINE (MA-STL) URINE Specimen Type: URINE No comment entered. Ordering Provider: DANIEL GOMEZ Report Released Date/Time: Aug 16, 2024 03:45 PM Reporting Lab: [facility] [address] Performing Lab: [facility] [phone] Qualitative Test NEG NEGAT URBAN Aug 19, 2024 10:08 AM [facility] URINE DRUG SCREEN (STL) URINE Specimen Type: URINE Comment: The cut-off value for Fentanyl was laboratory developed and its performance characteristics confirmed by the [facility] laboratory thru method comparison with reference laboratory and medication chart review. The laboratory is regulated under CLIA as qualified to perform high-complexity testing. Fentanyl is used for clinical purposes in conjunction with other laboratory tests. Ordering Provider: DANIEL GOMEZ Report Released Date/Time: Aug 16, 2024 03:45 PM Reporting Lab: [facility] [phone] Performing Lab: [facility] [address] ETHANOL Negative mg/dL 0-20 AMPHET/METHAMPHETAMINE Negative ng/mL COCAINE METABOLITES Negative ng/mL BENZODIAZEPINES (STL) Negative ng/mL CANNABINOIDS POSITIVE ng/mL METHADONE Negative ng/mL OPIATES POSITIVE ng/mL CREATININE URINE/OTHERS 266.1 mg/dL H 47.0 -110.0 OXYCODONE ([id number]-SX) Negative ng/mL BUPRENORPHINE (STL-PB-MA) Negative ng/mL FENTANYL (STL-PB) Negative ng/mL Aug 19, 2024 10:00 AM [facility] CBC BLOOD Specimen Type: BLOOD No comment entered. Ordering Provider: DANIEL GOMEZ Report Released Date/Time: Aug 16, 2024 03:45 PM Reporting Lab: [facility] [address] Performing Lab: [facility] [place] [phone] WBC 12.7 10*3/uL H 3.6-11.2 RBC 4.19 [...] 0.00-0. 20 Aug 19, 2024 09:59 AM [facility] COMPREHENSIVE METABOLIC PANEL PLASMA Specimen Type: PLASMA Comment: No hemolysis noted. Ordering Provider: DANIEL GOMEZ Report Released Date/Time: Aug 16, 2024 03:45 PM Reporting Lab: [facility] [address] Performing Lab: [facility] [place] [phone] CREATININE 0.75 mg/dL 0.60-1.10 UREA NITROGEN 12.0 [...] 104.44 >60 Aug 19, 2024 09:59 AM [facility] PT/INR NEW (STL-MA) PLASMA Specimen Type: PLAS MA No comment entered. Ordering Provider: DANIEL GOMEZ Report Released Date/Time: Aug 16, 2024 03:45 PM Reporting Lab: [facility] [place] [address] Performing Lab: [facility] [place] [address] PROTIME 9.4 s 9.4-12.5 INR VALUE 0.8 {INR} Aug 19, 2024 09:59 AM [facility] ETHANOL SERUM/PLASMA (STL) PLASMA Specimen Typ e: PLASMA Comment: No hemolysis noted. Ordering Provider: DANIEL GOMEZ Report Released Date/Time: Aug 16, 2024 03:45 PM Reporting Lab: [facility] [phone] Performing Lab: [facility] [address] ETHANOL SERUM/PLASMA (STL) <10.0 mg/dL 0 -10 Aug 19, 2024 09:59 AM [facility] GGT GAMMA-GT PLASMA Specimen Type: PLASM A No comment entered. Ordering Provider: DANIEL GOMEZ Report Released Date/Time: Aug 16, 2024 03:45 PM Reporting Lab: [facility] [address] [place] [address] Performing Lab: [facility] [address] [facility] [place] [address] GGT GAMMA-GT 14 [IU]/L 12-64 Aug 19, 2024 09:59 AM [facility] MAGNESIUM PLASMA Specimen Type: PLASM A Comment: No hemolysis noted. Ordering Provider: DANIEL GOMEZ Report Released Date/Time: Aug 16, 2024 03:45 PM Reporting Lab: [facility] [phone] Performing Lab: [facility] [address] MAGNESIUM 2.1 mg/dL 1.6-2.6 Aug 19, 2024 09:59 AM [facility] CPK SERUM Specimen Type: SERUM No comment entered. Ordering Provider: DANIEL GOMEZ Report Released Date/Time: Aug 16, 2024 03:45 PM Reporting Lab: [facility] [phone] Performing Lab: [facility] [address] CPK 37 U/L 29-168 Aug 19, 2024 09:59 AM [facility] HEP C Ab HCV Ab (STL) SERUM Specimen Type: SE RUM No comment entered. Ordering Provider: DANIEL GOMEZ Report Released Date/Time: Aug 16, 2024 03:45 PM Reporting Lab: [facility] [address] [facility] [address] Performing Lab: [facility] [address] [facility] [address] HEP C Ab HCV Ab (STL) Nonreactive Nonrea ctive Aug 19, 2024 09:59 AM [facility] HIV COMBO FOURTH GENERATION (STL) SERUM Speci men Type: SERUM No comment entered. Ordering Provider: DANIEL GOMEZ Report Released Date/Time: Aug 16, 2024 03:45 PM Reporting Lab: [facility] [address] [facility] [address] Performing Lab: [facility] [address] [facility] [address] HIV COMBO FOURTH GENERATION (STL) Nonreactive Nonreactive Encounter Notes: All associated encounter notes This section contains the clinical notes associated to the Encounter. Date/Time Encounter Note(s) Provider Source Aug 22, 2024 09:00 PM PSYCHIATRY GROUP COUNSELING NOTE: LOCAL TITLE: [facility] PSYCHIATRY GROUP NOTE STL STANDARD TITLE: PSYCHIATRY GROUP COUNSELING NOTE DATE OF NOTE: AUG 22, 2024@21:00 ENTRY DATE: AUG 22, 2024@22:23:48 AUTHOR: DELROY EXP COSIGNER: URGENCY: STATUS: COMPLETED Diagnosis: Substance Use Disorder Discipline: Nursing Group Time: Group Topic: Wrap Up Group Group Content: was one of Twenty-Three who attended this evening's Wrap- Up group. All the Veterans endorsed a positive aspect from today's treatment program. One new was welcomed into the program. Random questions were answered, and [employer] rules were reiterated. A short inspirational message was read by the [place]-elect Vice Chairperson. The Serenity prayer was said by those [...] BETSY POTTS LPN LICENSED PRACTICAL NURSE Signed: 08/22/2024 22:51 BETSY POTTS
--- OUTSIDE RECORDS SUMMARY | 2025-02-23 11:00 | XMS_ITS | Encounter Summary ---
Author Name [facility] [place] [facility] [place] Address [address] [place] [id number] Support Name Relationship Address Phone FUAD CHRISTINE Next of Kin Unknown CHRISTINE MERIDA Emergency Contact Unknown [phone] Insurance Providers: All historical and current Section [...] MEDIC AID Aug 02, 2015 MEDICAI D [id number] [phone] STACIE JENNIFER PATIENT [facility] (WNR) MEDICAID MEDIC AID [facility] (WNR) Dec 01, 2023 MEDICAI D [id number] STACIE AYEJENNIFER PATIENT Selected Encounter This section includes the information on record at [place] for the Encounter. Date/Time Encounter Type Encounter Description Reason Provider Source Sep 05, 2024 01:15 PM ALCOHOL AND/OR DRUG SERVICES [facility] ICD-10-CM F10.90 Alcohol use, unspecified, uncomplicated SUGEY ROSAS IHPeggy Encounter Template Text not used by [place] Assessments - Encounter Diagnoses This section includes the primary and secondary diagnoses documented for the Encounter. Date/Time Primary/Secondary Diagnosis Diagnosis Name Provider Source Sep 05, 2024 03:20 PM PRIMARY Alcohol use, unspecified, uncomplicated TOMI ROSAS [facility] Sep 05, 2024 03:20 PM SECONDARY Cannabis dependence, uncomplicated TOMI ROSAS [facility] Sep 05, 2024 03:20 PM SECONDARY Cocaine use, unspecified, uncomplicated TOMI ROSAS [facility] Sep 05, 2024 03:20 PM SECONDARY Opioid use, unspecified, uncomplicated TOMI ROSAS [facility] Plan of Treatment: Future Appointments (+ 6 months) and Future Tests (+/- 45 days) The Plan of Treatment section includes future care activities for the patient from all [place] [facility]. This section includes future appointments and future orders which are active, pending or scheduled. Future Appointments This section includes appointments that were scheduled to occur 6 months from the date of the Encounter, up to a maximum of 20 appointments. The data comes from all [facility] facilities. Appointment Date/Time Appointment Type Appointme nt Facility Name Sep 10, 2024 12:30 PM AMBULATORY - PSYCHIATRY [facility] Sep 12, 2024 06:00 PM AMBULATORY - PSYCHIATRY [facility] Sep 17, 2024 06:00 PM AMBULATORY - PSYCHIATRY [facility] Sep 19, 2024 06:00 PM AMBULATORY - PSYCHIATRY [facility] Sep 26, 2024 06:00 PM AMBULATORY - PSYCHIATRY [facility] Oct 01, 2024 02:00 PM AMBULATORY - NONE [facility] Oct 09, 2024 03:00 PM AMBULATORY - MEDICINE [facility] Oct 16, 2024 01:00 PM AMBULATORY - PSYCHIATRY [facility] Oct 30, 2024 01:00 PM AMBULATORY - PSYCHIATRY [facility] Nov 27, 2024 01:00 PM AMBULATORY - PSYCHIATRY [facility] Dec 04, 2024 01:00 PM AMBULATORY - PSYCHIATRY [facility] Dec 11, 2024 01:00 PM AMBULATORY - PSYCHIATRY [facility] Dec 18, 2024 01:00 PM AMBULATORY - PSYCHIATRY [facility] Dec 25, 2024 01:00 PM AMBULATORY - PSYCHIATRY [facility] February 05, 2025 09:30 AM AMBULATORY - PSYCHIATRY [facility] Lab Results: +/- [...] Type Comment Sep 03, 2024 12:00 PM [facility] URINE DRUG SCREEN (STL) URINE Specimen Type: URINE Comment: The cut-off value for Fentanyl was laboratory developed and its performance characteristics confirmed by the [facility] laboratory thru method comparison with reference laboratory and medication chart review. The laboratory is regulated under CLIA as qualified to perform high-complexity testing. Fentanyl is used for clinical purposes in conjunction with other laboratory tests. Ordering Provider: DANIEL GOMEZ Report Released Date/Time: Sep 02, 2024 08:27 PM Reporting Lab: [facility] [phone] Performing Lab: [facility] [phone] ETHANOL <10.0 mg/dL 0-9 AMPHET/METHAMPHETAMINE Negative ng/mL COCAINE METABOLITES Negative ng/mL BENZODIAZEPINES (STL) Negative ng/mL CANNABINOIDS POSITIVE ng/mL METHADONE Negative ng/mL OPIATES Negative ng/mL CREATININE URINE/OTHERS 110.1 mg/dL H 47.0 -110.0 OXYCODONE ([id number]) Negative ng/mL BUPRENORPHINE (STL-PB-MA) Negative ng/mL FENTANYL (STL-PB) Negative ng/mL Aug 25, 2024 02:03 PM [facility] URINE DRUG SCREEN (STL) URINE Specimen Type: URINE Comment: The cut-off value for Fentanyl was laboratory developed and its performance characteristics confirmed by the [facility] laboratory thru method comparison with reference laboratory and medication chart review. The laboratory is regulated under CLIA as qualified to perform high-complexity testing. Fentanyl is used for clinical purposes in conjunction with other laboratory tests. Ordering Provider: DANIEL GOMEZ Report Released Date/Time: Aug 24, 2024 07:24 PM Reporting Lab: [facility] [address] [place] [phone] Performing Lab: [facility] [address] [facility] [address] ETHANOL Negative mg/dL 0-20 AMPHET/METHAMPHETAMINE Negative ng/mL COCAINE METABOLITES Negative ng/mL BENZODIAZEPINES (STL) Negative ng/mL CANNABINOIDS POSITIVE ng/mL METHADONE Negative ng/mL OPIATES Negative ng/mL CREATININE URINE/OTHERS 39.0 mg/dL L 47-11 0 OXYCODONE ([id number]) Negative ng/mL BUPRENORPHINE (STL-PB-MA) Negative ng/mL FENTANYL (STL-PB) Negative ng/mL Aug 20, 2024 07:13 AM [facility] URINALYSIS W/ CX REFLEX (STL-PB) URINE Specim en Type: URINE No comment entered. Ordering Provider: DANIEL GOMEZ Report Released Date/Time: Aug 19, 2024 11:04 AM Reporting Lab: [facility] [place] [phone] Performing Lab: [facility] [place] [address] URINE COLOR Yellow Yellow U.BILIRUBIN Negative mg/dL [...] GRAVITY 1.028 Aug 19, 2024 10:08 AM [facility] URINALYSIS (STL-PB) URINE Specimen Type: URIN E No comment entered. Ordering Provider: DANIEL GOMEZ Report Released Date/Time: Aug 16, 2024 03:45 PM Reporting Lab: [facility] [place] [phone] Performing Lab: [facility] [place] [address] URINE COLOR Yellow Yellow U.BILIRUBIN Negative mg/dL [...] 1.035 H Aug 19, 2024 10:08 AM [facility] TEST URINE (MA-STL) URINE Specimen Type: URINE No comment entered. Ordering Provider: DANIEL GOMEZ Report Released Date/Time: Aug 16, 2024 03:45 PM Reporting Lab: [facility] [place] [address] Performing Lab: [facility] [place] [address] Qualitative Test NEG NEGAT URBAN Aug 19, 2024 10:08 AM [facility] URINE DRUG SCREEN (STL) URINE Specimen Type: URINE Comment: The cut-off value for Fentanyl was laboratory developed and its performance characteristics confirmed by the [facility] laboratory thru method comparison with reference laboratory and medication chart review. The laboratory is regulated under CLIA as qualified to perform high-complexity testing. Fentanyl is used for clinical purposes in conjunction with other laboratory tests. Ordering Provider: DANIEL GOMEZ Report Released Date/Time: Aug 16, 2024 03:45 PM Reporting Lab: [facility] [place] [address] Performing Lab: [facility] [place] [address] ETHANOL Negative mg/dL 0-20 AMPHET/METHAMPHETAMINE Negative ng/mL COCAINE METABOLITES Negative ng/mL BENZODIAZEPINES (STL) Negative ng/mL CANNABINOIDS POSITIVE ng/mL METHADONE Negative ng/mL OPIATES POSITIVE ng/mL CREATININE URINE/OTHERS 266.1 mg/dL H 47.0 -110.0 OXYCODONE ([id number]-HU) Negative ng/mL BUPRENORPHINE (STL-PB-MA) Negative ng/mL FENTANYL (STL-PB) Negative ng/mL Aug 19, 2024 10:00 AM [facility] CBC BLOOD Specimen Type: BLOOD No comment entered. Ordering Provider: DANIEL GOMEZ Report Released Date/Time: Aug 16, 2024 03:45 PM Reporting Lab: [facility] [phone] Performing Lab: [facility] [phone] WBC 12.7 10*3/uL H 3.6-11.2 RBC 4.19 [...] 0.00-0. 20 Aug 19, 2024 09:59 AM [facility] COMPREHENSIVE METABOLIC PANEL PLASMA Specimen Type: PLASMA Comment: No hemolysis noted. Ordering Provider: DANIEL GOMEZ Report Released Date/Time: Aug 16, 2024 03:45 PM Reporting Lab: [facility] [place] [address] Performing Lab: [facility] [place] [address] CREATININE 0.75 mg/dL 0.60-1.10 UREA NITROGEN 12.0 [...] 104.44 >60 Aug 19, 2024 09:59 AM [facility] PT/INR NEW (STL-MA) PLASMA Specimen Type: PLAS MA No comment entered. Ordering Provider: DANIEL GOMEZ Report Released Date/Time: Aug 16, 2024 03:45 PM Reporting Lab: [facility] [place] [address] Performing Lab: [facility] [place] [address] PROTIME 9.4 s 9.4-12.5 INR VALUE 0.8 {INR} Aug 19, 2024 09:59 AM [facility] ETHANOL SERUM/PLASMA (STL) PLASMA Specimen Typ e: PLASMA Comment: No hemolysis noted. Ordering Provider: DANIEL GOMEZ Report Released Date/Time: Aug 16, 2024 03:45 PM Reporting Lab: [facility] [place] [address] Performing Lab: [facility] [phone] ETHANOL SERUM/PLASMA (STL) <10.0 mg/dL 0 -10 Aug 19, 2024 09:59 AM [facility] GGT GAMMA-GT PLASMA Specimen Type: PLASM A No comment entered. Ordering Provider: DANIEL GOMEZ Report Released Date/Time: Aug 16, 2024 03:45 PM Reporting Lab: [facility] [address] [facility] [phone] Performing Lab: [facility] [address] [facility] [address] GGT GAMMA-GT 14 [IU]/L 12-64 Aug 19, 2024 09:59 AM [facility] MAGNESIUM PLASMA Specimen Type: PLASM A Comment: No hemolysis noted. Ordering Provider: DANIEL GOMEZ Report Released Date/Time: Aug 16, 2024 03:45 PM Reporting Lab: [facility] [phone] Performing Lab: [facility] [phone] MAGNESIUM 2.1 mg/dL 1.6-2.6 Aug 19, 2024 09:59 AM [facility] CPK SERUM Specimen Type: SERUM No comment entered. Ordering Provider: DANIEL GOMEZ Report Released Date/Time: Aug 16, 2024 03:45 PM Reporting Lab: [facility] [phone] Performing Lab: [facility] [phone] CPK 37 U/L 29-168 Aug 19, 2024 09:59 AM [facility] HEP C Ab HCV Ab (STL) SERUM Specimen Type: SE RUM No comment entered. Ordering Provider: DANIEL GOMEZ Report Released Date/Time: Aug 16, 2024 03:45 PM Reporting Lab: [facility] [address] [facility] [phone] Performing Lab: [facility] [address] [facility] [address] HEP C Ab HCV Ab (STL) Nonreactive Nonrea ctive Aug 19, 2024 09:59 AM [facility] HIV COMBO FOURTH GENERATION (STL) SERUM Speci men Type: SERUM No comment entered. Ordering Provider: DANIEL GOMEZ Report Released Date/Time: Aug 16, 2024 03:45 PM Reporting Lab: [facility] [address] [facility] [address] Performing Lab: [place] [id number] [facility] [phone] HIV COMBO FOURTH GENERATION (STL) Nonreactive Nonreactive Social History: Smoking Status (Most current) and Tobacco Use (All prior to encounter date) This section includes the most current, and the historical, smoking and tobacco- related health factors from the [place] facility where the Encounter took place. Current Smoking Status This section includes the most current smoking, or tobacco-related health factor, from the [place] facility where the Encounter took place. Date/Time Current Smoking Status Comment Nan ity Aug 19, 2024 10:33 AM VA-TOBACCO USE ALFONZO RY DAY CIGARETTES [facility] Tobacco Use History This section includes a history of the smoking, or tobacco-related health factors, that were collected on or before the date of the Encounter. The data comes from the [place] facility where the Encounter took place. Date/Time Smoking Status/Tobacco Use Comment F acility Aug 19, 2024 10:33 AM VA-TOBACCO SCREEN FOLLOW-UP [facility] Aug 19, 2024 10:33 AM VA-TOBACCO USE ADVICE [facility] Aug 19, 2024 10:33 AM VA-TOBACCO USE WEBMASTER NO [facility] Aug 19, 2024 10:33 AM VA-TOBACCO USE ALFONZO RY DAY CIGARETTES [facility] Aug 19, 2024 10:33 AM VA-TOBACCO USE MED YES [facility] Aug 19, 2024 10:33 AM VA-TOBACCO USE WI 30 MIN OF WAKEUP [facility] Encounter Notes: All associated encounter notes This section contains the clinical notes associated to the Encounter. Date/Time Encounter Note(s) Provider Source Sep 05, 2024 03:12 PM ADDICTION PSYCHIAT RY NOTE: LOCAL TITLE: [facility] STANDARD TITLE: ADDICTION PSYCHIATRY NOTE DATE OF NOTE: SEP 05, 2024@15:12 ENTRY DATE: SEP 05, 2024@15:12:30 AUTHOR: TOMI ROSAS EXP COSIGNER: URGENCY: STATUS: COMPLETED Case Management GROUP TIME:1315 - 1400 DURATION OF GROUP: 45 MINUTES NUMBER OF VETERANS: 6 OBJECTIVE OF GROUP: Discuss aspects of recovery or treatment of concern to veterans. and provide support. INTERVENTIONS: -Conducted needs check with each member -Utilized group dynamic to help Veterans challenge/support one another in recovery -Provided education/support LEVEL OF ENGAGEMENT: Actively engaged. RESPONSE TO INTERVENTION: Caspar states she had an appointment with manufacturer today and it was great. Caspar has concluded she needs to call her father on Monday and tell him she sold her car. Peers were supportive. Caspar also has acupnucture appontment tomorrow with [facility]. PLAN: No measurements were used in this group. RISK ASSESSMENT:Caspar was actively engaged in group and did not verbalize any suicidal ideations, plans, thoughts. DIAGNOSIS: Cannabis/ Alcohol/Opioids/Cocaine /es/ TOMI ROSAS Addiction Therapist, [facility] [address] [place] [address] / THANH Signed: 09/05/2024 15:22 TOMI ROSAS [facility]
--- OUTSIDE RECORDS SUMMARY | 2025-02-23 11:00 | XMS_ITS | Encounter Summary ---
Author Name [facility] Organization [facility] [place] Address [address] [place] [address] Support Name Relationship Address Phone FUAD CHRISTINE Next of Kin Unknown CHRISTINE MERIDA Emergency Contact Unknown [phone] Insurance Providers: All historical and current Section [...] MEDIC AID Aug 02, 2015 MEDICAI D [id number] [phone] STACIE AYEJENNIFER PATIENT [facility] (WNR) MEDICAID MEDIC AID [facility] (WNR) Dec 01, 2023 MEDICAI D [id number] STACIE JENNIFER PATIENT Selected Encounter This section includes the information on record at [place] for the Encounter. Date/Time Encounter Type Encounter Description Reason Provider Source Sep 08, 2024 07:45 AM SELF-MGMT EDUC/TRAIN 5-8 PT SUBSTANCE USE DISORDR GRP ICD-10-CM F12.20 Cannabis dependence, uncomplicated KEYUR COKER IHE Encounter Template Text not used by [place] Assessments - Encounter Diagnoses This section includes the primary and secondary diagnoses documented for the Encounter. Date/Time Primary/Secondary Diagnosis Diagnosis Name Provider Source Sep 08, 2024 08:51 AM PRIMARY Cannabis dependence, uncomplicated JOSE COKER [facility] Plan of Treatment: Future Appointments (+ 6 months) and Future Tests (+/- 45 days) The Plan of Treatment section includes [facility] care activities for the [facility] This section includes future appointments and future orders which are active, pending or scheduled. Future Appointments This section includes appointments that were scheduled to occur 6 months from the date of the Encounter, up to a maximum of 20 appointments. The data comes from all [place] treatment facilities. Appointment Date/Time Appointment Type Appointme nt Facility Name Sep 10, 2024 12:30 PM AMBULATORY - PSYCHIATRY [facility] Sep 12, 2024 06:00 PM AMBULATORY - PSYCHIATRY [facility] Sep 17, 2024 06:00 PM AMBULATORY - PSYCHIATRY [facility] Sep 19, 2024 06:00 PM AMBULATORY - PSYCHIATRY [facility] Sep 26, 2024 06:00 PM AMBULATORY - PSYCHIATRY [facility] Oct 01, 2024 02:00 PM AMBULATORY - NONE [facility] Oct 09, 2024 03:00 PM AMBULATORY - [...] and Hematology Lab Results on record with [place] for the patient. Radiology Reports and Pathology [...] and its performance characteristics confirmed by the [facility] laboratory thru method comparison with reference laboratory and medication chart review. The laboratory is regulated under CLIA as qualified to perform high-complexity testing. Fentanyl is used for clinical purposes in conjunction with other laboratory tests. Ordering Provider: DANIEL GOMEZ Report Released Date/Time: Sep 02, 2024 08:27 PM Reporting Lab: [facility] [facility] [phone] Performing Lab: [facility] [facility] [phone] ETHANOL <10.0 mg/dL 0-9 AMPHET/METHAMPHETAMINE Negative ng/mL COCAINE METABOLITES Negative ng/mL BENZODIAZEPINES (STL) Negative ng/mL CANNABINOIDS POSITIVE ng/mL METHADONE Negative ng/mL OPIATES Negative ng/mL CREATININE URINE/OTHERS 110.1 mg/dL H 47.0 -110.0 OXYCODONE ([id number]) Negative ng/mL BUPRENORPHINE (STL-PB-MA) Negative ng/mL FENTANYL (STL-PB) Negative ng/mL Aug 25, 2024 02:03 PM [facility] URINE DRUG SCREEN (STL) URINE Specimen Type: URINE Comment: The cut-off value for Fentanyl was laboratory developed and its performance characteristics confirmed by the [facility] laboratory thru method comparison with reference laboratory and medication chart review. The laboratory is regulated under CLIA as qualified to perform high-complexity testing. Fentanyl is used for clinical purposes in conjunction with other laboratory tests. Ordering Provider: DANIEL GOMEZ Report Released Date/Time: Aug 24, 2024 07:24 PM Reporting Lab: [facility] [address] [address] Performing Lab: [facility] [address] [facility] [address] ETHANOL Negative mg/dL 0-20 AMPHET/METHAMPHETAMINE Negative ng/mL COCAINE METABOLITES Negative ng/mL BENZODIAZEPINES (STL) Negative ng/mL CANNABINOIDS POSITIVE ng/mL METHADONE Negative ng/mL OPIATES Negative ng/mL CREATININE URINE/OTHERS 39.0 mg/dL L 47-11 0 OXYCODONE ([id number]) Negative ng/mL BUPRENORPHINE (STL-PB-MA) Negative ng/mL FENTANYL (STL-PB) Negative ng/mL Aug 20, 2024 07:13 AM [facility] URINALYSIS W/ CX REFLEX (STL-PB) URINE Specim en Type: URINE No comment entered. Ordering Provider: DANIEL GOMEZ Report Released Date/Time: Aug 19, 2024 11:04 AM Reporting Lab: [facility] [place] [address] Performing Lab: [facility] [place] [address] URINE COLOR Yellow Yellow U.BILIRUBIN Negative mg/dL [...] 2024 10:08 AM [facility] URINALYSIS (STL-PB) URINE Specimen Type: URIN E No comment entered. Ordering Provider: DANIEL GOMEZ Report Released Date/Time: Aug 16, 2024 03:45 PM Reporting Lab: [facility] [facility] [address] Performing Lab: [facility] [place] [address] URINE COLOR Yellow Yellow U.BILIRUBIN Negative mg/dL [...] 2024 03:45 PM Reporting Lab: [facility] [address] Performing Lab: [facility] [facility] [address] Qualitative Test NEG NEGAT URBAN Aug 19, 2024 10:08 AM [facility] URINE DRUG SCREEN (STL) URINE Specimen Type: URINE Comment: The cut-off value for Fentanyl was laboratory developed and its performance characteristics confirmed by the [facility] laboratory thru method comparison with reference laboratory and medication chart review. The laboratory is regulated under CLIA as qualified to perform high-complexity testing. Fentanyl is used for clinical purposes in conjunction with other laboratory tests. Ordering Provider: DANIEL GOEMZ Report Released Date/Time: Aug 16, 2024 03:45 PM Reporting Lab: [facility] [facility] [address] Performing Lab: [facility] [facility] [address] ETHANOL Negative mg/dL 0-20 AMPHET/METHAMPHETAMINE Negative ng/mL COCAINE METABOLITES Negative ng/mL BENZODIAZEPINES (STL) Negative ng/mL CANNABINOIDS POSITIVE ng/mL METHADONE Negative ng/mL OPIATES POSITIVE ng/mL CREATININE URINE/OTHERS 266.1 mg/dL H 47.0 -110.0 OXYCODONE ([id number]-SF) Negative ng/mL BUPRENORPHINE (STL-PB-MA) Negative ng/mL FENTANYL (STL-PB) Negative ng/mL Aug 19, 2024 10:00 AM [facility] CBC BLOOD Specimen Type: BLOOD No comment entered. Ordering Provider: DANIEL GOMEZ Report Released Date/Time: Aug 16, 2024 03:45 PM Reporting Lab: [facility] [facility] [address] Performing Lab: [facility] [facility] [address] WBC 12.7 10*3/uL H 3.6-11.2 RBC 4.19 [...] 2024 03:45 PM Reporting Lab: [facility] [facility] [address] Performing Lab: [facility] [facility] [address] CREATININE 0.75 mg/dL 0.60-1.10 UREA NITROGEN 12.0 [...] 2024 09:59 AM [facility] PT/INR NEW (STL-MA) PLASMA Specimen Type: PLAS MA No comment entered. Ordering Provider: DANIEL GOMEZ Report Released Date/Time: Aug 16, 2024 03:45 PM Reporting Lab: [facility] [facility] [address] Performing Lab: [facility] [facility] [address] PROTIME 9.4 s 9.4-12.5 INR VALUE 0.8 {INR} Aug 19, 2024 09:59 AM [facility] ETHANOL SERUM/PLASMA (STL) PLASMA Specimen Typ e: PLASMA Comment: No hemolysis noted. Ordering Provider: DANIEL GOMEZ Report Released Date/Time: Aug 16, 2024 03:45 PM Reporting Lab: [facility] [facility] [address] Performing Lab: [facility] [facility] [address] ETHANOL SERUM/PLASMA (STL) <10.0 mg/dL 0 -10 Aug 19, 2024 09:59 AM [facility] GGT GAMMA-GT PLASMA Specimen Type: PLASM A No comment entered. Ordering Provider: DANIEL GOMEZ Report Released Date/Time: Aug 16, 2024 03:45 PM Reporting Lab: [facility] [address] [facility] [address] Performing Lab: [facility] [address] [facility] [address] GGT GAMMA-GT 14 [IU]/L 12-64 Aug 19, 2024 09:59 AM [facility] MAGNESIUM PLASMA Specimen Type: PLASM A Comment: No hemolysis noted. Ordering Provider: DANIEL GOMEZ Report Released Date/Time: Aug 16, 2024 03:45 PM Reporting Lab: [facility] [facility] [address] Performing Lab: [facility] [facility] [address] MAGNESIUM 2.1 mg/dL 1.6-2.6 Aug 19, 2024 09:59 AM [facility] CPK SERUM Specimen Type: SERUM No comment entered. Ordering Provider: DANIEL GOMEZ Report Released Date/Time: Aug 16, 2024 03:45 PM Reporting Lab: [facility] [facility] [address] Performing Lab: [facility] [facility] [address] CPK 37 U/L 29-168 Aug 19, 2024 09:59 AM [facility] HIV COMBO FOURTH GENERATION (STL) SERUM Speci men Type: SERUM No comment entered. Ordering Provider: DANIEL GOMEZ Report Released Date/Time: Aug 16, 2024 03:45 PM Reporting Lab: [facility] [address] [facility] [address] Performing Lab: [facility] [address] [facility] [address] HIV COMBO FOURTH GENERATION (STL) Nonreactive Nonreactive Aug 19, 2024 09:59 AM [facility] HEP C Ab HCV Ab (STL) SERUM Specimen Type: SE RUM No comment entered. Ordering Provider: DANIEL GOMEZ Report Released Date/Time: Aug 16, 2024 03:45 PM Reporting Lab: [facility] [address] [facility] [address] Performing Lab: [facility] [address] [facility] [address] HEP C Ab HCV Ab (STL) Nonreactive Nonrea ctive Encounter Notes: All associated encounter notes This section contains the clinical notes associated to the Encounter. Date/Time Encounter Note(s) Provider Source Sep 08, 2024 07:45 AM PSYCHIATRY GROUP C GURPREET NOTE: LOCAL TITLE: [facility] GROUP NOTE ST STANDARD TITLE: PSYCHIATRY GROUP COUNSELING NOTE DATE OF NOTE: SEP 08, 2024@07:45 ENTRY DATE: SEP 08, 2024@08:36:56 AUTHOR: ANTONIETTA COKER EXP COSIGNER: URGENCY: STATUS: COMPLETED Discipline: Nursing Group Time: 744 Group Topics: Rules Review Group Content: Reviewed [facility] Contract of Agreement (including the addendum), Agreement [...] Actively Engaged Number of Patients in Group: 25 /es/ ANTONIETTA COKER RN REGISTERED NURSE Signed: 09/08/2024 08:58 ANTONIETTA COKER [facility]
--- OUTSIDE RECORDS SUMMARY | 2025-02-23 11:00 | XMS_ITS | Encounter Summary ---
Author Name [facility] [place] Organization [facility] [place] Address [address] [place] [address] Support Name Relationship Address Phone FUAD CHRISTINE [...] MEDIC AID Aug 02, 2015 MEDICAI D [id number] [phone] JENNIFER QUINONES PATIENT [facility] (WNR) MEDICAID MEDIC AID [facility] (WNR) Dec 01, 2023 MEDICAI D [id number] JENNIFER QUINONES PATIENT Selected Encounter This section includes the information on record at [place] for the Encounter. Date/Time Encounter Type Encounter Description Reason Provider Source Aug 28, 2024 03:38 PM OFFICE O/P EST SF 10 MIN RRTP INDIVIDUAL ICD-10-CM N64.9 Disorder of breast, unspecified SUBBAIAH,DANTE RI IHE Encounter Template Text not used by [place] Assessments - Encounter Diagnoses This section includes the primary and secondary diagnoses documented for the Encounter. Date/Time Primary/Secondary Diagnosis Diagnosis Name Provider Source Aug 28, 2024 03:47 PM PRIMARY Disorder of breast, unspecified SUBBAIAH,DANTE RI [facility] Plan of Treatment: Future Appointments (+ 6 months) and Future Tests (+/- 45 days) The Plan of Treatment section includes future care activities for the patient [facility] [place] [facility]. This section includes future appointments and future orders which are active, pending or scheduled. Future Appointments This section includes appointments that were scheduled to occur 6 months from the date of the Encounter, up to a maximum of 20 appointments. The data comes from all [place] [facility]. Appointment Date/Time Appointment Type Appointme nt Facility Name Sep 10, 2024 12:30 PM AMBULATORY - PSYCHIATRY [facility] Sep 12, 2024 06:00 PM AMBULATORY - PSYCHIATRY [facility] Sep 17, 2024 06:00 PM AMBULATORY - PSYCHIATRY [facility] Sep 19, 2024 06:00 PM AMBULATORY - PSYCHIATRY [facility] Sep 26, 2024 06:00 PM AMBULATORY - PSYCHIATRY [facility] Oct 01, 2024 02:00 PM AMBULATORY - NONE [facility] Oct 09, 2024 03:00 PM AMBULATORY - MEDICINE [facility] Oct 16, 2024 01:00 PM AMBULATORY - PSYCHIATRY [facility] Oct 30, 2024 01:00 PM AMBULATORY - PSYCHIATRY [facility] Nov 27, 2024 01:00 PM AMBULATORY - PSYCHIATRY [facility] Dec 04, 2024 01:00 PM AMBULATORY - PSYCHIATRY [facility] Dec 11, 2024 01:00 PM AMBULATORY - PSYCHIATRY [facility] Dec 18, 2024 01:00 PM AMBULATORY - PSYCHIATRY [facility] Dec 25, 2024 01:00 PM AMBULATORY - PSYCHIATRY [facility] February 05, 2025 09:30 AM AMBULATORY - PSYCHIATRY [facility] Lab Results: +/- 30 days of the encounter This section includes the Chemistry and Hematology Lab Results on record with [place] for the patient. Radiology Reports and Pathology [...] [facility] [phone] Performing Lab: [facility] [phone] ETHANOL <10.0 mg/dL 0-9 AMPHET/METHAMPHETAMINE Negative ng/mL COCAINE METABOLITES Negative ng/mL BENZODIAZEPINES (STL) Negative ng/mL CANNABINOIDS POSITIVE ng/mL METHADONE Negative ng/mL OPIATES Negative ng/mL CREATININE URINE/OTHERS 110.1 mg/dL H 47.0 -110.0 OXYCODONE ([id number]) Negative ng/mL BUPRENORPHINE (STL-PB-MA) Negative ng/mL FENTANYL (STL-PB) Negative ng/mL Aug 25, 2024 02:03 PM [facility] URINE DRUG SCREEN (STL) URINE Specimen [...] Aug 24, 2024 07:24 PM Reporting Lab: [facility] [address] [facility] [address] Performing Lab: [facility] [address] [facility] [address] ETHANOL Negative mg/dL 0-20 AMPHET/METHAMPHETAMINE Negative ng/mL COCAINE METABOLITES Negative ng/mL BENZODIAZEPINES (STL) Negative ng/mL CANNABINOIDS POSITIVE ng/mL METHADONE Negative ng/mL OPIATES Negative ng/mL CREATININE URINE/OTHERS 39.0 mg/dL L 47-11 0 OXYCODONE ([id number]) Negative ng/mL BUPRENORPHINE (STL-PB-MA) Negative ng/mL FENTANYL (STL-PB) Negative ng/mL Aug 20, 2024 07:13 AM [facility] URINALYSIS W/ CX REFLEX (STL-PB) URINE Specim en Type: URINE No comment entered. Ordering Provider: MAHOGANY GOMEZ Report Released Date/Time: Aug 19, 2024 11:04 AM Reporting Lab: [facility] [address] Performing Lab: [facility] [address] [place] [address] URINE COLOR Yellow Yellow U.BILIRUBIN Negative mg/dL [...] 2024 10:08 AM [facility] URINALYSIS (STL-PB) URINE Specimen Type: URIN E No comment entered. Ordering Provider: MAHOGANY GOMEZ Report Released Date/Time: Aug 16, 2024 03:45 PM Reporting Lab: [facility] [facility] [address] Performing Lab: [facility] [address] [place] [address] URINE COLOR Yellow Yellow U.BILIRUBIN Negative mg/dL [...] [facility] [address] Performing Lab: [facility] [address] [facility] [address] Qualitative Test NEG NEGAT URBAN Aug 19, [...] [facility] [address] Performing Lab: [facility] [facility] [address] ETHANOL Negative mg/dL 0-20 AMPHET/METHAMPHETAMINE Negative ng/mL COCAINE METABOLITES Negative ng/mL BENZODIAZEPINES (STL) Negative ng/mL CANNABINOIDS POSITIVE ng/mL METHADONE Negative ng/mL OPIATES POSITIVE ng/mL CREATININE URINE/OTHERS 266.1 mg/dL H 47.0 -110.0 OXYCODONE ([id number]) Negative ng/mL BUPRENORPHINE (STL-PB-MA) Negative ng/mL FENTANYL (STL-PB) Negative ng/mL Aug 19, 2024 10:00 AM [facility] CBC BLOOD Specimen Type: BLOOD No comment entered. Ordering Provider: MAHOGANY GOMEZ Report Released Date/Time: Aug 16, 2024 03:45 PM Reporting Lab: [facility] [facility] [address] Performing Lab: [facility] [address] [place] [phone] WBC 12.7 10*3/uL H 3.6-11.2 RBC 4.19 [...] [facility] [address] Performing Lab: [facility] [address] [place] [phone] CREATININE 0.75 mg/dL 0.60-1.10 UREA NITROGEN 12.0 [...] [facility] [address] Performing Lab: [facility] [address] [facility] [address] PROTIME 9.4 s 9.4-12.5 INR VALUE 0.8 {INR} Aug 19, 2024 09:59 AM [facility] ETHANOL SERUM/PLASMA (STL) PLASMA Specimen Typ e: PLASMA Comment: No hemolysis noted. Ordering Provider: MAHOGANY GOMEZ Report Released Date/Time: Aug 16, 2024 03:45 PM Reporting Lab: [facility] [facility] [address] Performing Lab: [facility] [facility] [address] ETHANOL SERUM/PLASMA (STL) <10.0 mg/dL 0 -10 Aug 19, 2024 09:59 AM [facility] GGT GAMMA-GT PLASMA Specimen Type: PLASM A No comment entered. Ordering Provider: MAHOGANY GOMEZ Report Released Date/Time: Aug 16, 2024 03:45 PM Reporting Lab: [facility] [address] [facility] [address] Performing Lab: [facility] [address] [facility] [address] GGT GAMMA-GT 14 [IU]/L 12-64 Aug 19, 2024 09:59 AM [facility] MAGNESIUM PLASMA Specimen Type: PLASM A Comment: No hemolysis noted. Ordering Provider: MAHOGANY GOMEZ Report Released Date/Time: Aug 16, 2024 03:45 PM Reporting Lab: [facility] [facility] [address] Performing Lab: [facility] [facility] [address] MAGNESIUM 2.1 mg/dL 1.6-2.6 Aug 19, 2024 09:59 AM [facility] CPK SERUM Specimen Type: SERUM No comment entered. Ordering Provider: MAHOGANY GOMEZ Report Released Date/Time: Aug 16, 2024 03:45 PM Reporting Lab: [facility] [facility] [address] Performing Lab: [facility] [facility] [address] CPK 37 U/L 29-168 Aug 19, 2024 09:59 AM [facility] HEP C Ab HCV Ab (STL) SERUM Specimen Type: SE RUM No comment entered. Ordering Provider: MAHOGANY GOMEZ Report Released Date/Time: Aug 16, 2024 03:45 PM Reporting Lab: [facility] [address] [facility] [address] Performing Lab: [facility] [address] [facility] [address] HEP C Ab HCV Ab (STL) Nonreactive Nonrea ctive Aug 19, 2024 09:59 AM [facility] HIV COMBO FOURTH GENERATION (STL) SERUM Speci men Type: SERUM No comment entered. Ordering Provider: MAHOGANY GOMEZ Report Released Date/Time: Aug 16, 2024 03:45 PM Reporting Lab: [facility] [address] [facility] [address] Performing Lab: [facility] [address] [facility] [address] HIV COMBO FOURTH GENERATION (STL) Nonreactive Nonreactive Social History: Smoking Status (Most current) and Tobacco Use (All prior to encounter date) This section includes the most current, and the historical, smoking and tobacco- related health factors from the [facility] where the Encounter took place. [...] Aug 19, 2024 10:33 AM VA-TOBACCO USE SOCIAL WORK THERAPIST NO [facility] Aug 19, [...] Encounter Note(s) Provider Source Sep 03, 2024 01:52 PM ADDENDUM: LOCAL TITLE: Addendum STANDARD TITLE: ADDENDUM DATE OF NOTE: SEP 03, 2024@13:52:38 ENTRY DATE: SEP 03, 2024@13:52:39 AUTHOR: MAHOGANY GOMEZ EXP COSIGNER: URGENCY: STATUS: COMPLETED WILL ASK PROGRAM MANAGER TO ALERT PT THAT RADIOLOGY IS ATTEMPTED TO CONTACT HER FOR SCHEDULING OF MAMMOGRAM/ULTRASOUND. /sanjeev/ Mahogany Gomez M.D. Staff Physician Signed: 09/03/2024 13:53 Receipt Acknowledged By: 09/05/2024 10:15 /es/ IRIS GUTIERREZ RN BSN REGISTERED NURSE 09/03/2024 14:23 /es/ SURYA BOYD MBA RN REGISTERED NURSE --- Original Document --- 08/28/24 MEDICINE GENERAL INPATIENT NOTE: This is a 39 year old, WHITE FEMALE with a PMH of:1) Cannabis abuse 2) Cannabis dependence, continuous 3) Admits alcohol use 4) Cocaine user 5) Opioid dependence 6) Tobacco use 7) Insomnia 8) Anxiety. Patient PT HERE TODAY FOR SICK CALL. PT REPORTS SHE NOTICED A RIGHT SIDED BREAST TENDERNESS AND MASS LAST FEW DAYS. PT REPORTS HER LMP WAS JUST PRIOR TO ADMISSION INTO [facility]. DENIES ANY OTHER LESIONS, H/O BREAST CA, OR H/O BREAST MASS. PT DENIES ANY NIPPLE D/C. DENIES ANY F OR C. PT REPORTS HER MOM WAS DX WITH BREAST CA AT AGE 58. PT REPORTS MOM HAD HYSTERECTOMY PRIOR TO HER DX OF BREAST CA. PT IS FOLLOWED BY PRIVATE REFRIGERATION PLANT OPERATOR AND HER LAST EXAM WAS ABOUT 1 YEAR AGO. PT STATES SHE HAS NOT HAD A MAMMOGRAM. Patient has thefollowing known Allergies: BACTRIM, FLUCONAZOLE, CONCERTA, RISPERDAL, LAMICTAL On the following Active Medications: 1) BUSPIRONE TAB PO TID 5MG 2) OLANZAPINE TAB PO QHS 5MG RXAE MRT1 - Med Reconciliation INCLUDED IN THIS LIST: Alphabetical list of active outpatient prescriptions dispensed from this [place] (local) and dispensed from another [place] or DoD facility (remote) as well as inpatient orders (local pending and active), local clinic medications, locally documented non-VA medications, and local prescriptions that have or been discontinued in the past 90 days. Non-VA Meds Last Documented On: Jan 16, 2024 NOTE The display of VA prescriptions dispensed from another [place] or [facility] facility (remote) is limited to active outpatient prescription entries matched to National Drug File at the originating site and may not include some items such as investigational drugs, compounds, etc. NOT INCLUDED IN THIS LIST: Medications self-entered by the patient into personal health records (i.e. [facility]) are NOT included in this list. Non-VA medications documented outside this [place], remote inpatient orders (regardless of status) and remote clinic medications are NOT included in this list. The patient and provider must always discuss medications the patient is taking, regardless of where the medication was dispensed or obtained. OUTPT ACETAMINOPHEN 500MG TAB (Status = Active) TAKE ONE TABLET BY MOUTH FOUR TIMES A DAY NEEDED FOR PAIN CAUTION: DO NOT EXCEED 4000MG PER DAY ACETAMINOPHEN (APAP) FROM ALL MEDS. Rx# [id number] Last Released: 08/20/24 Qty/Days Supply: 28/04 Rx Expiration Date: 08/21/25 Refills Remainin Indication: FOR PAIN OUTPT ALBUTEROL 90MCG (CFC-F) 200D ORAL INHL (Status = Active) INHALE 2 PUFFS BY ORAL INHALATION FOUR TIMES A DAY NEEDED FOR COPD SHAKE WELL. RINSE MOUTHPIECE FREQUENTLY TO PREVENT CLOGGING. Rx# [id number] Last Released: 08/20/24 Qty/Days Supply: 10/26 Rx Expiration Date: 09/19/24 Refills Remainin Indication: FOR COPD OUTPT ATOMOXETINE 40MG CAP (Status = Discontinued) TAKE ONE CAPSULE BY MOUTH EVERY MORNING Rx# [id number] Last Released: 07/29/24 Qty/Days Supply: 90 Rx Expiration Date: 05/09/25 Refills Remainin Indication: ADHD OUTPT ATOMOXETINE 40MG CAP (Status = Active) TAKE ONE CAPSULE BY MOUTH EVERY MORNING Rx# [id number] Last Released: 08/20/24 Qty/Days Supply: 04/07 Rx Expiration Date: 08/21/25 Refills Remainin Indication: ADHD OUTPT BUPROPION HCL 100MG 12HR SA TAB (Status = Discontinued) TAKE ONE TABLET BY MOUTH ONCE A DAY FOR DEPRESSION SWALLOW WHOLE - DO NOT CRUSH OR CHEW. Rx# [id number] Last Released: 05/24/24 Qty/Days Supply: Rx Expiration Date: 05/23/25 Refills Remainin Indication: FOR DEPRESSION OUTPT BUPROPION HCL 150MG 24HR SA TAB (Status = Active) TAKE ONE TABLET BY MOUTH ONCE A DAY FOR DEPRESSION SWALLOW WHOLE - DO NOT CRUSH OR CHEW. Rx# [id number] Last Released: 08/20/24 Qty/Days Supply: 04/07 Rx Expiration Date: 08/21/25 Refills Remainin Indication: FOR DEPRESSION INPT BUSPIRONE HCL 5MG TAB (Status=Active) 5MG BY MOUTH THREE TIMES A DAY Indication: FOR ANXIETY BCMA ORDER LAST ACTION: 08/28/24 14:05 GIVEN OUTPT ESCITALOPRAM OXALATE 20MG TAB (Status = Discontinued) TAKE ONE AND ONE-HALF TABLETS BY MOUTH ONCE A DAY Rx# [id number] Last Released: 07/27/24 Qty/Days Supply: 135 Rx Expiration Date: 03/23/25 Refills Remainin Indication: DEPRESSION/ANXIETY OUTPT ESCITALOPRAM OXALATE 20MG TAB (Status = Active) TAKE ONE AND ONE-HALF TABLETS BY MOUTH EVERY MORNING Rx# [id number] Last Released: 08/20/24 Qty/Days Supply: 08/08 Rx Expiration Date: 08/21/25 Refills Remainin Indication: DEPRESSION/ANXIETY OUTPT HYDROXYZINE HCL 25MG TAB (Status = Discontinued) TAKE ONE TABLET BY MOUTH THREE TIMES A DAY NEEDED *MAY CAUSE DROWSINESS* Rx# [id number] Last Released: 08/21/24 Qty/Days Supply: 21/04 Rx Expiration Date: 08/22/25 Refills Remainin Indication: FOR ANXIETY OUTPT HYDROXYZINE HCL 50MG TAB (Status = Discontinued) TAKE ONE TABLET BY MOUTH AT BEDTIME NEEDED *MAY CAUSE DROWSINESS* Rx# [id number] Last Released: 08/23/24 Qty/Days Supply: 04/07 Rx Expiration Date: 08/24/25 Refills Remainin Indication: SLEEP OUTPT IBUPROFEN 800MG TAB (Status = Active) TAKE ONE TABLET BY MOUTH THREE TIMES A DAY NEEDED FOR PAIN TAKE WITH FOOD. Rx# [id number] Last Released: 08/20/24 Qty/Days Supply: 21/04 Rx Expiration Date: 08/21/25 Refills Remainin Indication: FOR PAIN OUTPT LORATADINE 10MG TAB (Status = Active) TAKE ONE TABLET BY MOUTH ONCE A DAY NEEDED FOR ALLERGIC RHINITIS ON EMPTY STOMACH Rx# [id number] Last Released: 08/20/24 Qty/Days Supply: 04/07 Rx Expiration Date: 08/21/25 Refills Remainin Indication: FOR ALLERGIC RHINITIS OUTPT MELATONIN 3MG CAP/TAB (Status = Active) TAKE ONE CAP/TAB BY MOUTH AT BEDTIME NEEDED Rx# [id number] Last Released: 08/23/24 Qty/Days Supply: 04/07 Rx Expiration Date: 08/24/25 Refills Remainin Indication: FOR SLEEP OUTPT NALOXONE HCL 4MG/SPRAY SOLN NASAL SPRAY (Status = Active) USE 1 SPRAY (4MG) INTO ONE NOSTRIL ONLY ONE-TIME FOR OPIOID OVERDOSE DO NOT PRIME NASAL SPRAY. SPRAY ONE DOSE IN ONE NOSTRIL, GIVE ADDITIONAL DOSE IF PATIENT DOES NOT START BREATHING WITHIN 2-3 MINUTES OR STOPS BREATHING AGAIN. CALL 911. IF USED, NOTIFY PROVIDER. Rx# [id number] Last Released: 08/19/24 Qty/Days Supply: 11/06 Rx Expiration Date: 09/18/24 Refills Remainin Indication: FOR OPIOID OVERDOSE OUTPT NICOTINE 14MG/24HR PATCH (Status = Active) APPLY 1 PATCH TO SKIN SITE EVERY MORNING REMOVE OLD PATCH BEFORE APPLYING NEW ONE. ROTATE SITES. DO NOT SMOKE WHILE WEARING PATCH. Rx# [id number] Last Released: 05/23/24 Qty/Days Supply: Rx Expiration Date: 05/23/25 Refills Remainin Indication: FOR TOBACCO CESSATION OUTPT NICOTINE 21MG/24HR PATCH (Status = Discontinued) APPLY 1 PATCH TO SKIN SITE EVERY MORNING FOR TOBACCO CESSATION REMOVE OLD PATCH BEFORE APPLYING NEW ONE. ROTATE SITES. DO NOT SMOKE WHILE WEARING PATCH. Rx# [id number] Last Released: 05/23/24 Qty/Days Supply: Rx Expiration Date: 05/23/25 Refills Remainin Indication: FOR TOBACCO CESSATION OUTPT NICOTINE 21MG/24HR PATCH (Status = Active) APPLY 1 PATCH TO SKIN SITE EVERY MORNING REMOVE OLD PATCH BEFORE APPLYING NEW ONE. ROTATE SITES. DO NOT SMOKE WHILE WEARING PATCH. Rx# [id number] Last Released: 08/20/24 Qty/Days Supply: Rx Expiration Date: 09/19/24 Refills Remainin Indication: FOR TOBACCO CESSATION OUTPT NICOTINE 4MG GUM (Status = Active) CHEW 1 PIECE OF GUM BY MOUTH EVERY 4 HOURS NEEDED CHEW GUM UNTIL TINGLING SENSATION, THEN PARK THE GUM BETWEEN CHEEK AND GUM AREA. REPEAT (RE-CHEW) WHEN TINGLING STOPS. Rx# [id number] Last Released: 08/20/24 Qty/Days Supply: Rx Expiration Date: 09/19/24 Refills Remainin Indication: FOR TOBACCO CESSATION OUTPT NICOTINE 7MG/24HR PATCH (Status = Active) APPLY 1 PATCH TO SKIN SITE EVERY MORNING REMOVE OLD PATCH BEFORE APPLYING NEW ONE. ROTATE SITES. DO NOT SMOKE WHILE WEARING PATCH. Rx# [id number] Last Released: 05/23/24 Qty/Days Supply: Rx Expiration Date: 05/23/25 Refills Remainin Indication: FOR TOBACCO CESSATION INPT OLANZAPINE 5MG TAB (Status=Active) 5MG BY MOUTH AT BEDTIME Indication: FOR DEPRESSION BCMA ORDER LAST ACTION: 08/27/24 21:05 GIVEN OUTPT PRAZOSIN HCL 1MG CAP (Status = Discontinued) TAKE ONE CAPSULE BY MOUTH AT BEDTIME FOR NIGHTMARES MAY CAUSE DIZZINESS OR DROWSINESS. Rx# [id number] Last Released: 08/20/24 Qty/Days Supply: 04/07 Rx Expiration Date: 08/21/25 Refills Remainin Indication: FOR NIGHTMARES OUTPT PRAZOSIN HCL 2MG CAP (Status = Discontinued) TAKE ONE CAPSULE BY MOUTH AT BEDTIME MAY CAUSE DIZZINESS OR DROWSINESS. Rx# [id number] Last Released: 08/23/24 Qty/Days Supply: 04/07 Rx Expiration Date: 08/24/25 Refills Remainin Indication: FOR NIGHTMARES OUTPT TRAZODONE HCL 100MG TAB (Status = Discontinued) TAKE ONE-HALF TABLET BY MOUTH AT BEDTIME Rx# [id number] Last Released: 08/21/24 Qty/Days Supply: 01/06 Rx Expiration Date: 08/22/25 Refills Remainin Indication: FOR INSOMNIA OUTPT TRAZODONE HCL 100MG TAB (Status = Active) TAKE ONE AND ONE-HALF TABLETS BY MOUTH AT BEDTIME Rx# [id number] Last Released: 08/23/24 Qty/Days Supply: 08/08 Rx Expiration Date: 08/24/25 Refills Remainin Indication: FOR INSOMNIA OUTPT TRIAMCINOLONE ACETONIDE 0.1% CREAM (Status = Active) APPLY LIGHTLY TO AFFECTED AREA(S) TWICE A DAY FOR PSORIASIS (EXTERNAL USE ONLY) Rx# [id number] Last Released: 08/20/24 Qty/Days Supply: Rx Expiration Date: 09/19/24 Refills Remainin Indication: FOR PSORIASIS Non-VA TRIAMCINOLONE OINT,TOP APPLY 0.025 TO AFFECTED AREA(S) ONCE A DAY Indication: psoriasis SUPPLIES OUTPT MED ORGANIZER 7D SLOT APEX#[id number] (Status = Active) USE PILLBOX ONE-TIME FOR MEDICATION STORAGE/PLANNING Rx# [id number] Last Released: 08/19/24 Qty/Days Supply: 10/31 Rx Expiration Date: 09/18/24 Refills Remainin Indication: FOR MEDICATION STORAGE/PLANNING OUTPT TABLET CUTTER (Status = Active) USE TABLET CUTTER ONE-TIME NEEDED FOR TABLET CUTTING Rx# [id number] Last Released: 08/19/24 Qty/Days Supply: 10/31 Rx Expiration Date: 09/18/24 Refills Remainin Indication: FOR TABLET CUTTING PHARMACY TERMS AND POSSIBLE PATIENT ACTIONS INPT = [place] inpatient order IV = [place] intravenous medication OUTPT = [place] outpatient prescription PHARMACY POSSIBLE PATIENT TERMS EXPLANATION ACTIONS -------- ----- ACTIVE A prescription that can be If you have refills, filled at the local [place] pharmacy. you may request a refill of this prescription from your VA pharmacy. CLINIC A medication you received during If you have questions a visit to a VA clinic or about this medication emergency department. contact your [place] healthcare team. DISCONTINUED A prescription your provider has Contact your VA stopped. It is no longer healthcare team if you available to be sent to you or need more of this picked up at the [place] pharmacy medication. window. A prescription which is [...] the VA. Or, it may be an [id number]-[id number] (OTC), herbal, dietary supplements or sample medication. [...] before this medication now. you run out. HGB A1C (last): No HEMOGLOBIN A1C EO data found LDL(calculated): No CALCULATED LDL data found HDL:____ Cholesterol:No CHOLESTEROL EO data found Triglycerides: ____ PSA:No PSA EO data found Urine Micral: No MICRAL data found WBC:12.7 10*3/uL H (08/19/24 10:00) RBC:4.19 10*6/uL (08/19/24 10:00) HGB:HGB 12.7 g/dL 08/19/2024 10:00 HCT:37.7 % (08/19/24 10:00) PLT:PLT 418 H 10*3/uL 08/19/2024 10:00 Chem 7 GLU: GLUCOSE 99 mg/dL 08/19/2024 09:59 BUN:12.0 mg/dL (08/19/24 09:59) CRE: CREATININE 0.75 mg/dL 08/19/2024 09:59 NA: SODIUM 139 mEq/L 08/19/2024 09:59 K: POTASSIUM 4.2 mEq/L 08/19/2024 09:59 CL: 108 mEq/L H (08/19/24 09:59) CO2: CARBON DIOXIDE 23 mEq/L 08/19/2024 09:59 Urinalysis URINE COLOR Yellow 08/20/2024 07:13 APPEARANCE Clear 08/20/2024 07:13 U.PH 6.0 08/20/2024 07:13 U.BILIRUBIN Negative mg/dL 08/20/2024 07:13 U.NITRITE Negative mg/dL 08/20/2024 07:13 URINE RBC/HPF 3 /HPF 08/20/2024 07:13 URINE WBC/HPF 3 /HPF 08/20/2024 07:13 SQUAMOUS EPITH. 9 /HPF 08/20/2024 07:13 MUCUS FEW /LPF 08/20/2024 07:13 Chest X-Ray: No Radiology exams found. PHYSICAL EXAM: Recent Vital Signs: Temperature: 98.1 F [36.7 C] (08/22/2024 06:56) BP: 107/71 (08/22/2024 06:56) Pulse: 94 (08/22/2024 06:56) Resp: 20 (08/22/2024 06:56) Pain: 0 (08/22/2024 06:56) GEN-NAD NECK-NO MASSES AXILLA-NO MASSES OR LAD NOTED BILAT BREAST- LEFT BREAST-NO MASSES OR LESIONS NOTED. NO NIPPLE D/C RIGHT BREAST- THICK, FIRM CORD LIKE TISSUES IS NOTED AT 7 OCLOCK AND 10 OCLOCK POSITION OF BREAST. AREAS ARE MOBILE AND NOT FIXED NO NIPPLE D/C OR DIMPLING PT DOES HAVE ERYTHEMATOUS PLAQUE UNDER BILAT BREAST. REPORTS SHE WAS TOLD THIS WAS PSORIASIS IN THE PAST. A/P: 1. RIGHT BREAST FIRMNESS/MASS REPORTS TENDER TO TOUCH -PT REPORTS MOM WITH BREAST CA -ORDER BILAT MAMMOGRAM. PT IS LISTED A NOT A ON FACE SHEET. ADVISED PT IF SHE DOES NOT COMPLETE HER MAMMOGRAM AT THE [place] SHE MUST CONTACT HER PCP /PRIVATE REFRIGERATION PLANT OPERATOR FOR JORDEN APPT. STATES SHE UNDERSTANDS AND WILL F/U WITH PRIVATE PCP. NOTIFY STAFF OF ANY WORSENING S/S KEEP F/U WITH PCP AND PRIVATE RE[employer]IG[employer]ATION [employer]ANT OPERATOR WILL CONTINUE TO MONITOR /es/ Mahogany Gomez M.D. Staff Physician Signed: 08/28/2024 15:47 MAHOGANY GOMEZ [facility] Aug 28, 2024 03:38 PM INTERNAL MEDICINE INPATIENT NOTE: LOCAL TITLE: MEDICINE GENERAL INPATIENT NOTE STANDARD TITLE: INTERNAL MEDICINE INPATIENT NOTE DATE OF NOTE: AUG 28, 2024@15:38 ENTRY DATE: AUG 28, 2024@15:38:41 AUTHOR: MAHOGANY GOMEZ EXP COSIGNER: URGENCY: STATUS: COMPLETED MEDICINE GENERAL INPATIENT NOTE Has ADDENDA This is a 39 year old, WHITE FEMALE with a PMH of:1) Cannabis abuse 2) Cannabis dependence, continuous 3) Admits alcohol use 4) Cocaine user 5) Opioid dependence 6) Tobacco use 7) Insomnia 8) Anxiety. Patient PT HERE TODAY FOR SICK CALL. PT REPORTS SHE NOTICED A RIGHT SIDED BREAST TENDERNESS AND MASS LAST FEW DAYS. PT REPORTS HER LMP WAS JUST PRIOR TO ADMISSION INTO [facility]. DENIES ANY OTHER LESIONS, H/O BREAST CA, OR H/O BREAST MASS. PT DENIES ANY NIPPLE D/C. DENIES ANY F OR C. PT REPORTS HER MOM WAS DX WITH BREAST CA AT AGE 58. PT REPORTS MOM HAD HYSTERECTOMY PRIOR TO HER DX OF BREAST CA. PT IS FOLLOWED BY PRIVATE REFRIGERATION PLANT OPERATOR AND HER LAST EXAM WAS ABOUT 1 YEAR AGO. PT STATES SHE HAS NOT HAD A MAMMOGRAM. Patient has thefollowing known Allergies: BACTRIM, FLUCONAZOLE, CONCERTA, RISPERDAL, LAMICTAL On the following Active Medications: 1) BUSPIRONE TAB PO TID 5MG 2) OLANZAPINE TAB PO QHS 5MG RXAE MRT1 - Med Reconciliation INCLUDED IN THIS LIST: Alphabetical list of active outpatient prescriptions dispensed from this [place] (local) and dispensed from another [place] or [facility] facility (remote) as well as inpatient orders (local pending and active), local clinic medications, locally documented non-VA medications, and local prescriptions that have or been discontinued in the past 90 days. Non-VA Meds Last Documented On: Jan 16, 2024 NOTE The display of VA prescriptions dispensed from another [place] or [facility] facility (remote) is limited to active outpatient prescription entries matched to National Drug File at the originating site and may not include some items such as investigational drugs, compounds, etc. NOT INCLUDED IN THIS LIST: Medications self-entered by the patient into personal health records (i.e. Marley Spoon) are NOT included in this list. Non-VA medications documented outside this [place], remote inpatient orders (regardless of status) and remote clinic medications are NOT included in this list. The patient and provider must always discuss medications the patient is taking, regardless of where the medication was dispensed or obtained. OUTPT ACETAMINOPHEN 500MG TAB (Status = Active) TAKE ONE TABLET BY MOUTH FOUR TIMES A DAY NEEDED FOR PAIN CAUTION: DO NOT EXCEED 4000MG PER DAY ACETAMINOPHEN (APAP) FROM ALL MEDS. Rx# [id number] Last Released: 08/20/24 Qty/Days Supply: 28/04 Rx Expiration Date: 08/21/25 Refills Remainin Indication: FOR PAIN OUTPT ALBUTEROL 90MCG (CFC-F) 200D ORAL INHL (Status = Active) INHALE 2 PUFFS BY ORAL INHALATION FOUR TIMES A DAY NEEDED FOR COPD SHAKE WELL. RINSE MOUTHPIECE FREQUENTLY TO PREVENT CLOGGING. Rx# [id number] Last Released: 08/20/24 Qty/Days Supply: 10/26 Rx Expiration Date: 09/19/24 Refills Remainin Indication: FOR COPD OUTPT ATOMOXETINE 40MG CAP (Status = Discontinued) TAKE ONE CAPSULE BY MOUTH EVERY MORNING Rx# [id number] Last Released: 07/29/24 Qty/Days Supply: Rx Expiration Date: 05/09/25 Refills Remainin Indication: ADHD OUTPT ATOMOXETINE 40MG CAP (Status = Active) TAKE ONE CAPSULE BY MOUTH EVERY MORNING Rx# [id number] Last Released: 08/20/24 Qty/Days Supply: 04/07 Rx Expiration Date: 08/21/25 Refills Remainin Indication: ADHD OUTPT BUPROPION HCL 100MG 12HR SA TAB (Status = Discontinued) TAKE ONE TABLET BY MOUTH ONCE A DAY FOR DEPRESSION SWALLOW WHOLE - DO NOT CRUSH OR CHEW. Rx# [id number] Last Released: 05/24/24 Qty/Days Supply: Rx Expiration Date: 05/23/25 Refills Remainin Indication: FOR DEPRESSION OUTPT BUPROPION HCL 150MG 24HR SA TAB (Status = Active) TAKE ONE TABLET BY MOUTH ONCE A DAY FOR DEPRESSION SWALLOW WHOLE - DO NOT CRUSH OR CHEW. Rx# [id number] Last Released: 08/20/24 Qty/Days Supply: 04/07 Rx Expiration Date: 08/21/25 Refills Remainin Indication: FOR DEPRESSION INPT BUSPIRONE HCL 5MG TAB (Status=Active) 5MG BY MOUTH THREE TIMES A DAY Indication: FOR ANXIETY BCMA ORDER LAST ACTION: 08/28/24 14:05 GIVEN OUTPT ESCITALOPRAM OXALATE 20MG TAB (Status = Discontinued) TAKE ONE AND ONE-HALF TABLETS BY MOUTH ONCE A DAY Rx# [id number] Last Released: 07/27/24 Qty/Days Supply: 135/90 Rx Expiration Date: 03/23/25 Refills Remainin Indication: DEPRESSION/ANXIETY OUTPT ESCITALOPRAM OXALATE 20MG TAB (Status = Active) TAKE ONE AND ONE-HALF TABLETS BY MOUTH EVERY MORNING Rx# [id number] Last Released: 08/20/24 Qty/Days Supply: 08/08 Rx Expiration Date: 08/21/25 Refills Remainin Indication: DEPRESSION/ANXIETY OUTPT HYDROXYZINE HCL 25MG TAB (Status = Discontinued) TAKE ONE TABLET BY MOUTH THREE TIMES A DAY NEEDED *MAY CAUSE DROWSINESS* Rx# [id number] Last Released: 08/21/24 Qty/Days Supply: 21/04 Rx Expiration Date: 08/22/25 Refills Remainin Indication: FOR ANXIETY OUTPT HYDROXYZINE HCL 50MG TAB (Status = Discontinued) TAKE ONE TABLET BY MOUTH AT BEDTIME NEEDED *MAY CAUSE DROWSINESS* Rx# [id number] Last Released: 08/23/24 Qty/Days Supply: 04/07 Rx Expiration Date: 08/24/25 Refills Remainin Indication: SLEEP OUTPT IBUPROFEN 800MG TAB (Status = Active) TAKE ONE TABLET BY MOUTH THREE TIMES A DAY NEEDED FOR PAIN TAKE WITH FOOD. Rx# [id number] Last Released: 08/20/24 Qty/Days Supply: 21/04 Rx Expiration Date: 08/21/25 Refills Remainin Indication: FOR PAIN OUTPT LORATADINE 10MG TAB (Status = Active) TAKE ONE TABLET BY MOUTH ONCE A DAY NEEDED FOR ALLERGIC RHINITIS ON EMPTY STOMACH Rx# [id number] Last Released: 08/20/24 Qty/Days Supply: 04/07 Rx Expiration Date: 08/21/25 Refills Remainin Indication: FOR ALLERGIC RHINITIS OUTPT MELATONIN 3MG CAP/TAB (Status = Active) TAKE ONE CAP/TAB BY MOUTH AT BEDTIME NEEDED Rx# [id number] Last Released: 08/23/24 Qty/Days Supply: 04/07 Rx Expiration Date: 08/24/25 Refills Remainin Indication: FOR SLEEP OUTPT NALOXONE HCL 4MG/SPRAY SOLN NASAL SPRAY (Status = Active) USE 1 SPRAY (4MG) INTO ONE NOSTRIL ONLY ONE-TIME FOR OPIOID OVERDOSE DO NOT PRIME NASAL SPRAY. SPRAY ONE DOSE IN ONE NOSTRIL, GIVE ADDITIONAL DOSE IF PATIENT DOES NOT START BREATHING WITHIN 2-3 MINUTES OR STOPS BREATHING AGAIN. CALL 911. IF USED, NOTIFY PROVIDER. Rx# [id number] Last Released: 08/19/24 Qty/Days Supply: 11/06 Rx Expiration Date: 09/18/24 Refills Remainin Indication: FOR OPIOID OVERDOSE OUTPT NICOTINE 14MG/24HR PATCH (Status = Active) APPLY 1 PATCH TO SKIN SITE EVERY MORNING REMOVE OLD PATCH BEFORE APPLYING NEW ONE. ROTATE SITES. DO NOT SMOKE WHILE WEARING PATCH. Rx# [id number] Last Released: 05/23/24 Qty/Days Supply: Rx Expiration Date: 05/23/25 Refills Remainin Indication: FOR TOBACCO CESSATION OUTPT NICOTINE 21MG/24HR PATCH (Status = Discontinued) APPLY 1 PATCH TO SKIN SITE EVERY MORNING FOR TOBACCO CESSATION REMOVE OLD PATCH BEFORE APPLYING NEW ONE. ROTATE SITES. DO NOT SMOKE WHILE WEARING PATCH. Rx# [id number] Last Released: 05/23/24 Qty/Days Supply: Rx Expiration Date: 05/23/25 Refills Remainin Indication: FOR TOBACCO CESSATION OUTPT NICOTINE 21MG/24HR PATCH (Status = Active) APPLY 1 PATCH TO SKIN SITE EVERY MORNING REMOVE OLD PATCH BEFORE APPLYING NEW ONE. ROTATE SITES. DO NOT SMOKE WHILE WEARING PATCH. Rx# [id number] Last Released: 08/20/24 Qty/Days Supply: Rx Expiration Date: 09/19/24 Refills Remainin Indication: FOR TOBACCO CESSATION OUTPT NICOTINE 4MG GUM (Status = Active) CHEW 1 PIECE OF GUM BY MOUTH EVERY 4 HOURS NEEDED CHEW GUM UNTIL TINGLING SENSATION, THEN PARK THE GUM BETWEEN CHEEK AND GUM AREA. REPEAT (RE-CHEW) WHEN TINGLING STOPS. Rx# [id number] Last Released: 08/20/24 Qty/Days Supply: 110/30 Rx Expiration Date: 09/19/24 Refills Remainin Indication: FOR TOBACCO CESSATION OUTPT NICOTINE 7MG/24HR PATCH (Status = Active) APPLY 1 PATCH TO SKIN SITE EVERY MORNING REMOVE OLD PATCH BEFORE APPLYING NEW ONE. ROTATE SITES. DO NOT SMOKE WHILE WEARING PATCH. Rx# [id number] Last Released: 05/23/24 Qty/Days Supply: Rx Expiration Date: 05/23/25 Refills Remainin Indication: FOR TOBACCO CESSATION INPT OLANZAPINE 5MG TAB (Status=Active) 5MG BY MOUTH AT BEDTIME Indication: FOR DEPRESSION BCMA ORDER LAST ACTION: 08/27/24 21:05 GIVEN OUTPT PRAZOSIN HCL 1MG CAP (Status = Discontinued) TAKE ONE CAPSULE BY MOUTH AT BEDTIME FOR NIGHTMARES MAY CAUSE DIZZINESS OR DROWSINESS. Rx# [id number] Last Released: 08/20/24 Qty/Days Supply: 04/07 Rx Expiration Date: 08/21/25 Refills Remainin Indication: FOR NIGHTMARES OUTPT PRAZOSIN HCL 2MG CAP (Status = Discontinued) TAKE ONE CAPSULE BY MOUTH AT BEDTIME MAY CAUSE DIZZINESS OR DROWSINESS. Rx# [id number] Last Released: 08/23/24 Qty/Days Supply: 04/07 Rx Expiration Date: 08/24/25 Refills Remainin Indication: FOR NIGHTMARES OUTPT TRAZODONE HCL 100MG TAB (Status = Discontinued) TAKE ONE-HALF TABLET BY MOUTH AT BEDTIME Rx# [id number] Last Released: 08/21/24 Qty/Days Supply: 01/06 Rx Expiration Date: 08/22/25 Refills Remainin Indication: FOR INSOMNIA OUTPT TRAZODONE HCL 100MG TAB (Status = Active) TAKE ONE AND ONE-HALF TABLETS BY MOUTH AT BEDTIME Rx# [id number] Last Released: 08/23/24 Qty/Days Supply: 08/08 Rx Expiration Date: 08/24/25 Refills Remainin Indication: FOR INSOMNIA OUTPT TRIAMCINOLONE ACETONIDE 0.1% CREAM (Status = Active) APPLY LIGHTLY TO AFFECTED AREA(S) TWICE A DAY FOR PSORIASIS (EXTERNAL USE ONLY) Rx# [id number] Last Released: 08/20/24 Qty/Days Supply: /30 Rx Expiration Date: 09/19/24 Refills Remainin Indication: FOR PSORIASIS Non-VA TRIAMCINOLONE OINT,TOP APPLY 0.025 TO AFFECTED AREA(S) ONCE A DAY Indication: psoriasis SUPPLIES OUTPT MED ORGANIZER 7D SLOT APEX#[id number] (Status = Active) USE PILLBOX ONE-TIME FOR MEDICATION STORAGE/PLANNING Rx# [id number] Last Released: 08/19/24 Qty/Days Supply: 10/31 Rx Expiration Date: 09/18/24 Refills Remainin Indication: FOR MEDICATION STORAGE/PLANNING OUTPT TABLET CUTTER (Status = Active) USE TABLET CUTTER ONE-TIME NEEDED FOR TABLET CUTTING Rx# [id number] Last Released: 08/19/24 Qty/Days Supply: 10/31 Rx Expiration Date: 09/18/24 Refills Remainin Indication: FOR TABLET CUTTING PHARMACY TERMS AND POSSIBLE PATIENT ACTIONS INPT = [place] inpatient order IV = [place] intravenous medication OUTPT = [place] outpatient prescription PHARMACY POSSIBLE PATIENT TERMS EXPLANATION ACTIONS -------- ----- ACTIVE A prescription that can be If you have refills, filled at the local [place] pharmacy. you may request a refill of this prescription from your [place] pharmacy. CLINIC A medication you received during If you have questions a visit to a [place] clinic or about this medication emergency department. contact your [place] healthcare team. DISCONTINUED A prescription your provider has Contact your [facility] stopped. It is no longer healthcare team if you available to be sent to you or need more of this picked up at the [place] pharmacy medication. window. A prescription which is [...] the VA. Or, it may be an wqfj-dbk-hqrprrd (OTC), herbal, dietary supplements or sample medication. [...] before this medication now. you run out. HGB A1C (last): No HEMOGLOBIN A1C EO data found LDL(calculated): No CALCULATED LDL data found HDL:____ Cholesterol:No CHOLESTEROL EO data found Triglycerides: ____ PSA:No PSA EO data found Urine Micral: No MICRAL data found WBC:12.7 10*3/uL H (08/19/24 10:00) RBC:4.19 10*6/uL (08/19/24 10:00) HGB:HGB 12.7 g/dL 08/19/2024 10:00 HCT:37.7 % (08/19/24 10:00) PLT:PLT 418 H 10*3/uL 08/19/2024 10:00 Chem 7 GLU: GLUCOSE 99 mg/dL 08/19/2024 09:59 BUN:12.0 mg/dL (08/19/24 09:59) CRE: CREATININE 0.75 mg/dL 08/19/2024 09:59 NA: SODIUM 139 mEq/L 08/19/2024 09:59 K: POTASSIUM 4.2 mEq/L 08/19/2024 09:59 CL: 108 mEq/L H (08/19/24 09:59) CO2: CARBON DIOXIDE 23 mEq/L 08/19/2024 09:59 Urinalysis URINE COLOR Yellow 08/20/2024 07:13 APPEARANCE Clear 08/20/2024 07:13 U.PH 6.0 08/20/2024 07:13 U.BILIRUBIN Negative mg/dL 08/20/2024 07:13 U.NITRITE Negative mg/dL 08/20/2024 07:13 URINE RBC/HPF 3 /HPF 08/20/2024 07:13 URINE WBC/HPF 3 /HPF 08/20/2024 07:13 SQUAMOUS EPITH. 9 /HPF 08/20/2024 07:13 MUCUS FEW /LPF 08/20/2024 07:13 Chest X-Ray: No Radiology exams found. PHYSICAL EXAM: Recent Vital Signs: Temperature: 98.1 F [36.7 C] (08/22/2024 06:56) BP: 107/71 (08/22/2024 06:56) Pulse: 94 (08/22/2024 06:56) Resp: 20 (08/22/2024 06:56) Pain: 0 (08/22/2024 06:56) GEN-NAD NECK-NO MASSES AXILLA-NO MASSES OR LAD NOTED BILAT BREAST- LEFT BREAST-NO MASSES OR LESIONS NOTED. NO NIPPLE D/C RIGHT BREAST- THICK, FIRM CORD LIKE TISSUES IS NOTED AT 7 OCLOCK AND 10 OCLOCK POSITION OF BREAST. AREAS ARE MOBILE AND NOT FIXED NO NIPPLE D/C OR DIMPLING PT DOES HAVE ERYTHEMATOUS PLAQUE UNDER BILAT BREAST. REPORTS SHE WAS TOLD THIS WAS PSORIASIS IN THE PAST. A/P: 1. RIGHT BREAST FIRMNESS/MASS REPORTS TENDER TO TOUCH -PT REPORTS MOM WITH BREAST CA -ORDER BILAT MAMMOGRAM. PT IS LISTED A NOT A ON FACE SHEET. ADVISED PT IF SHE DOES NOT COMPLETE HER MAMMOGRAM AT THE [facility] SHE MUST CONTACT HER PCP /PRIVATE REFRIGERATION PLANT OPERATOR FOR JORDEN APPT. STATES SHE UNDERSTANDS AND WILL F/U WITH PRIVATE PCP. NOTIFY STAFF OF ANY WORSENING S/S KEEP F/U WITH PCP AND PRIVATE REFRIGERATION PLANT OPERATOR WILL CONTINUE TO MONITOR /saravanan Gomez M.D. Staff Physician Signed: 08/28/2024 15:47 09/03/2024 ADDENDUM STATUS: COMPLETED WILL ASK PROGRAM MANAGER TO ALERT PT THAT RADIOLOGY IS ATTEMPTED TO CONTACT HER FOR SCHEDULING OF MAMMOGRAM/ULTRASOUND. /saravanan Gomez M.D. Staff Physician Signed: 09/03/2024 13:53 Receipt Acknowledged By: * AWAITING SIGNATURE * IRIS GUTIERREZ * AWAITING SIGNATURE * SURYA OLMSTEAD MADHURI [facility]
--- OUTSIDE RECORDS SUMMARY | 2025-02-23 11:00 | XMS_ITS ---
Author Name [facility] [facility] [place] [facility] [place] [facility] [place] Address [address] [place] [address] Support Name Relationship Address Phone FUAD CHRISTINE Next of Kin Unknown CHRISTINE MERIDA Emergency Contact Unknown [phone] Insurance Providers: All historical and current Section [...] MEDIC AID Aug 02, 2015 MEDICAI D [id number] [phone] STACIE JENNIFER PATIENT [facility] (WNR) MEDICAID MEDIC AID [facility] (WNR) Dec 01, 2023 MEDICAI D [id number] STACIE AYEJENNIFER PATIENT Selected Encounter This section includes the information on record at [place] for the Encounter. Date/Time Encounter Type Encounter Description Reason Provider Source Aug 19, 2024 09:00 PM SELF-MGMT EDUC/TRAIN 5-8 PT SUBSTANCE USE DISORDR GRP ICD-10-CM F11.90 Opioid use, unspecified, uncomplicated SLEYSTER,WILL DEIDRE ELIZABETH Encounter Template Text not used by [place] Assessments - Encounter Diagnoses This section includes the primary and secondary diagnoses documented for the Encounter. Date/Time Primary/Secondary Diagnosis Diagnosis Name Provider Source Aug 19, 2024 09:26 PM PRIMARY Opioid use, unspecified, uncomplicated SLEYSTER,NAIF JOHNSON [facility] Plan of Treatment: Future Appointments (+ 6 months) and Future Tests (+/- 45 days) The Plan of Treatment section includes future care activities for the patient [facility] [place] [facility] This section includes future appointments and future orders which are active, pending or scheduled. Future Appointments This section includes appointments that were scheduled to occur 6 months from the date of the Encounter, up to a maximum of 20 appointments. The data comes from all [place] [facility]. Appointment Date/Time Appointment Type Appointme nt Facility Name Sep 10, 2024 12:30 PM AMBULATORY - PSYCHIATRY [facility] Sep 12, 2024 06:00 PM AMBULATORY - PSYCHIATRY [facility] Sep 17, 2024 06:00 PM AMBULATORY - PSYCHIATRY [facility] Sep 19, 2024 06:00 PM AMBULATORY - PSYCHIATRY [facility] Sep 26, 2024 06:00 PM AMBULATORY - PSYCHIATRY [facility] Oct 01, 2024 02:00 PM AMBULATORY - NONE [facility] Oct 09, 2024 03:00 PM AMBULATORY - MEDICINE [facility] Oct 16, 2024 01:00 PM AMBULATORY - PSYCHIATRY [facility] Oct 30, 2024 01:00 PM AMBULATORY - PSYCHIATRY [facility] Nov 27, 2024 01:00 PM AMBULATORY - PSYCHIATRY [facility] Dec 04, 2024 01:00 PM AMBULATORY - PSYCHIATRY [facility] Dec 11, 2024 01:00 PM AMBULATORY - PSYCHIATRY [facility] Dec 18, 2024 01:00 PM AMBULATORY - PSYCHIATRY [facility] Dec 25, 2024 01:00 PM AMBULATORY - PSYCHIATRY [facility] February 05, 2025 09:30 AM AMBULATORY - PSYCHIATRY [facility] Lab Results: +/- 30 days [...] Comment Sep 03, 2024 12:00 PM [facility] URINE DRUG SCREEN (STL) URINE Specimen Type: [...] Lab: [facility] [facility] [phone] Performing Lab: [facility] [address] ETHANOL <10.0 mg/dL 0-9 AMPHET/METHAMPHETAMINE Negative ng/mL COCAINE METABOLITES Negative ng/mL BENZODIAZEPINES (STL) Negative ng/mL CANNABINOIDS POSITIVE ng/mL METHADONE Negative ng/mL OPIATES Negative ng/mL CREATININE URINE/OTHERS 110.1 mg/dL H 47.0 -110.0 OXYCODONE ([id number]) Negative ng/mL BUPRENORPHINE (STL-PB-MA) Negative ng/mL FENTANYL (STL-PB) Negative ng/mL Aug 25, 2024 02:03 PM [facility] URINE DRUG SCREEN (STL) [...] Aug 24, 2024 07:24 PM Reporting Lab: [facility] [address] [facility] [address] Performing Lab: [facility] [address] [facility] [address] ETHANOL Negative mg/dL 0-20 AMPHET/METHAMPHETAMINE Negative ng/mL COCAINE METABOLITES Negative ng/mL BENZODIAZEPINES (STL) Negative ng/mL CANNABINOIDS POSITIVE ng/mL METHADONE Negative ng/mL OPIATES Negative ng/mL CREATININE URINE/OTHERS 39.0 mg/dL L 47-11 0 OXYCODONE ([id number]) Negative ng/mL BUPRENORPHINE (STL-PB-MA) Negative ng/mL FENTANYL (STL-PB) Negative ng/mL Aug 20, 2024 07:13 AM [facility] URINALYSIS W/ CX REFLEX (STL-PB) URINE Specim en Type: URINE No comment entered. Ordering Provider: DANIEL GOMEZ Report Released Date/Time: Aug 19, 2024 11:04 AM Reporting Lab: [facility] [address] Performing Lab: [facility] [place] [address] URINE COLOR Yellow Yellow U.BILIRUBIN Negative mg/dL [...] 1.028 Aug 19, 2024 10:08 AM [facility] URINALYSIS (STL-PB) URINE Specimen Type: URIN E No comment entered. Ordering Provider: DANIEL GOMEZ Report Released Date/Time: Aug 16, 2024 03:45 PM Reporting Lab: [facility] [address] Performing Lab: [facility] [place] [address] URINE COLOR Yellow Yellow U.BILIRUBIN Negative mg/dL [...] H Aug 19, 2024 10:08 AM [facility] TEST URINE (MA-STL) URINE Specimen Type: URINE No comment entered. Ordering Provider: DANIEL GOMEZ Report Released Date/Time: Aug 16, 2024 03:45 PM Reporting Lab: [facility] [address] Performing Lab: [facility] [address] Qualitative Test NEG NEGAT URBAN Aug 19, 2024 10:08 AM [facility] URINE DRUG SCREEN (STL) URINE Specimen Type: [...] Lab: [facility] [address] Performing Lab: [facility] [facility] [address] ETHANOL Negative mg/dL 0-20 AMPHET/METHAMPHETAMINE Negative ng/mL COCAINE METABOLITES Negative ng/mL BENZODIAZEPINES (STL) Negative ng/mL CANNABINOIDS POSITIVE ng/mL METHADONE Negative ng/mL OPIATES POSITIVE ng/mL CREATININE URINE/OTHERS 266.1 mg/dL H 47.0 -110.0 OXYCODONE ([id number]) Negative ng/mL BUPRENORPHINE (STL-PB-MA) Negative ng/mL FENTANYL (STL-PB) Negative ng/mL Aug 19, 2024 10:00 AM [facility] CBC BLOOD Specimen Type: BLOOD No comment entered. Ordering Provider: DANIEL GOMEZ Report Released Date/Time: Aug 16, 2024 03:45 PM Reporting Lab: [facility] [address] Performing Lab: [facility] [place] [phone] WBC 12.7 10*3/uL H 3.6-11.2 RBC 4.19 [...] 20 Aug 19, 2024 09:59 AM [facility] COMPREHENSIVE METABOLIC PANEL PLASMA Specimen Type: PLASMA Comment: No hemolysis noted. Ordering Provider: DANIEL GOMEZ Report Released Date/Time: Aug 16, 2024 03:45 PM Reporting Lab: [facility] [facility] [address] Performing Lab: [facility] [place] [phone] CREATININE 0.75 mg/dL 0.60-1.10 UREA NITROGEN 12.0 [...] Lab: [facility] [address] Performing Lab: [facility] [facility] [address] PROTIME 9.4 s 9.4-12.5 INR VALUE 0.8 {INR} Aug 19, 2024 09:59 AM [facility] ETHANOL SERUM/PLASMA (STL) PLASMA Specimen Typ e: PLASMA Comment: No hemolysis noted. Ordering Provider: DANIEL GOMEZ Report Released Date/Time: Aug 16, 2024 03:45 PM Reporting Lab: [facility] [facility] [address] Performing Lab: [facility] [facility] [address] ETHANOL SERUM/PLASMA (STL) <10.0 mg/dL 0 -10 Aug 19, 2024 09:59 AM [facility] GGT GAMMA-GT PLASMA Specimen Type: PLASM A No comment entered. Ordering Provider: DANIEL GOMEZ Report Released Date/Time: Aug 16, 2024 03:45 PM Reporting Lab: [facility] [address] [address] Performing Lab: [facility] [address] [address] GGT GAMMA-GT 14 [IU]/L 12-64 Aug 19, 2024 09:59 AM [facility] MAGNESIUM PLASMA Specimen Type: PLASM A Comment: No hemolysis noted. Ordering Provider: DANIEL GOMEZ Report Released Date/Time: Aug 16, 2024 03:45 PM Reporting Lab: [facility] [address] Performing Lab: [facility] [address] MAGNESIUM 2.1 mg/dL 1.6-2.6 Aug 19, 2024 09:59 AM [facility] CPK SERUM Specimen Type: SERUM No comment entered. Ordering Provider: DANIEL GOMEZ Report Released Date/Time: Aug 16, 2024 03:45 PM Reporting Lab: [facility] [address] Performing Lab: [facility] [facility] [address] CPK 37 U/L 29-168 Aug 19, 2024 09:59 AM [facility] HEP C Ab HCV Ab (STL) SERUM Specimen Type: SE RUM No comment entered. Ordering Provider: DANIEL GOMEZ Report Released Date/Time: Aug 16, 2024 03:45 PM Reporting Lab: [facility] [address] [address] Performing Lab: [facility] [address] [address] HEP C Ab HCV Ab (STL) Nonreactive Nonrea ctive Aug 19, 2024 09:59 AM [facility] HIV COMBO FOURTH GENERATION (STL) SERUM Speci men Type: SERUM No comment entered. Ordering Provider: DANIEL GOMEZ Report Released Date/Time: Aug 16, 2024 03:45 PM Reporting Lab: [facility] [address] [facility] [address] Performing Lab: [facility] [address] [facility] [place] [address] HIV COMBO FOURTH GENERATION (STL) Nonreactive Nonreactive Encounter Notes: All associated encounter notes This section contains the clinical notes associated to the Encounter. Date/Time Encounter Note(s) Provider Source Aug 19, 2024 09:00 PM PSYCHIATRY GROUP Alis VÁZQUEZ NOTE: LOCAL TITLE: [facility] NOTE STL STANDARD TITLE: PSYCHIATRY GROUP COUNSELING NOTE DATE OF NOTE: AUG 19, 2024@21:00 ENTRY DATE: AUG 19, 2024@21:21:46 AUTHOR: RUDDY OSPINA COSIGNER: URGENCY: STATUS: COMPLETED [...] GROUP CONTENT: Wrap-up Group was one of Twenty-Three who attended this evenings' wrap-up group. All the veterans were encouraged to talk about what they had learned today. Veterans were thanked for their service. The goal of this group was to point out improvements in the veterans and to emphasize the role daily gratitude plays in their recovery. GROUP GOALS: Achieved PATIENT RESPONSE: Active Participated meaningfully. Number of patients in group: 23 /es/ RUDDY OSPINA RN, BSN REGISTERED NURSE Signed: 08/19/2024 21:33 RUDDY OSPINA
--- OUTSIDE RECORDS SUMMARY | 2025-02-23 11:00 | XMS_ITS | Encounter Summary ---
Author Name [facility] ([place]) Organization [facility] Address [address] [place] [id number] Support Name Relationship Address Phone FUAD CHRISTINE [...] MEDIC AID Aug 02, 2015 MEDICAI D [id number] [phone] STACIE JENNIFER PATIENT [facility] (WNR) MEDICAID MEDIC AID [facility] (WNR) Dec 01, 2023 MEDICAI D [id number] STACIE JENNIFER PATIENT Selected Encounter This section includes the information on record at [place] for the Encounter. Date/Time Encounter Type Encounter Description Reason Provider Source Apr 23, 2024 10:00 AM GROUP PSYCHOTHERAPY SUBSTANCE USE DISORDR GRP ICD-10-CM F12.10 Cannabis abuse, uncomplicated BACKES,SHIKHA IGH M IHE Encounter Template Text not used by [place] Assessments - Encounter Diagnoses This section includes the primary and secondary diagnoses documented for the Encounter. Date/Time Primary/Secondary Diagnosis Diagnosis Name Provider Source Apr 23, 2024 11:21 AM PRIMARY Cannabis abuse, uncomplicated BACKES,LUIS CARLOS H M [facility] Plan of Treatment: Future Appointments (+ 6 months) and Future Tests (+/- 45 days) The Plan of Treatment section includes future care activities for the patient from all [place] treatmentfacilities. This section includes future appointments and future orders which are active, pending or scheduled. Future Appointments This section includes appointments that were scheduled to occur 6 months from the date of the Encounter, up to a maximum of 20 appointments. The data comes from all [facility]. Appointment Date/Time Appointment Type Appointme nt Facility Name May 22, 2024 11:00 AM AMBULATORY - PSYCHIATRY [facility] Sep 10, 2024 12:30 PM AMBULATORY - PSYCHIATRY [facility] Sep 12, 2024 06:00 PM AMBULATORY - PSYCHIATRY [facility] Sep 17, 2024 06:00 PM AMBULATORY - PSYCHIATRY [facility] Sep 19, 2024 06:00 PM AMBULATORY - PSYCHIATRY [facility] Sep 26, 2024 06:00 PM AMBULATORY - PSYCHIATRY [facility] Oct 01, 2024 02:00 PM AMBULATORY - NONE [facility] Oct 09, 2024 03:00 PM AMBULATORY - MEDICINE [facility] Oct 16, 2024 01:00 PM AMBULATORY - PSYCHIATRY [facility] Active, Pending, and Scheduled Orders This section includes a listing of several types of active, pending, and scheduled orders, including clinic medications orders, diagnostic test orders, procedure orders and consult orders; where the start date of the order is 45 days before the date of the Encounter or 45 days after the date of theEncounter. The data comes from all [facility]. Test Date/Time Test Type Test Details Facility Name Mar 22, 2024 12:00 AM Laboratory - Chemistry Order CBC BLOOD SP [facility] Mar 22, 2024 12:00 AM Laboratory - Chemistry Order TSH W/ REFLEX FT4 (STL) GREEN LI-HEP PLASMA SP [facility] Mar 22, 2024 12:00 AM Laboratory - Chemistry Order VITAMIN D, 25-HYDROXY GOLD/RED SST SERUM SP [facility] Mar 22, 2024 12:00 AM Laboratory - Chemistry Order COMPREHENSIVE METABOLIC PANEL GREEN LI/HEP BLD/PLAS PLASMA SP [facility] Mar 22, 2024 12:00 AM Laboratory - Chemistry Order HGA1C BLOOD [facility] Mar 22, 2024 12:00 AM Laboratory - Chemistry Order LIPID PANEL (STL) GREEN LI/HEP BLD/PLAS PLASMA SP ONCE [facility] Mar 22, 2024 12:00 AM Laboratory - Chemistry Order TEST URINE (MA-STL) URINE YELLOW SP [facility] Encounter Notes: All associated encounter notes This section contains the clinical notes associated to the Encounter. Date/Time Encounter Note(s) Provider Source Apr 23, 2024 11:08 AM SOCIAL WORK GROUP COUNSELING NOTE: LOCAL TITLE: GENERAL GROUP STL STANDARD TITLE: SOCIAL WORK GROUP COUNSELING NOTE DATE OF NOTE: APR 23, 2024@11:08 ENTRY DATE: APR 23, 2024@11:08:55 AUTHOR: SKY RAMOS COSIGNER: MEKA HANNON URGENCY: STATUS: COMPLETED GENERAL GROUP STL Has ADDENDA DATE: 04/23/2024 TIME: 8745-4976 GROUP LENGTH: 45 min LOCATION: [facility] TITLE: Healthy Relationships: Introduction COTTON TIPPER: Sky Ramos LMSW CPT CODE: 53510 THERAPY FORMAT / INTERVENTION TYPE: (x) Cognitive-behavioral skills (x) Motivational interviewing (x) Problem solving skills (x) Relapse prevention skills ( ) Dialectical Behavior Therapy ( ) Supportive psychotherapy PURPOSE: The purpose of this group was to provide education regarding healthy relationship and tools that can be used to improve relationship health. Today's topic was an introduction to healthy relationships and describes traits of healthy and unhealthy relationships. CONTENT: Group began with an icebreaker activity where veterans shared one positive thing in their lives, something they are looking forward to, and one thing they are currently struggling with and group members provided support as needed. Today's group topic engaged 's in identifying traits of both healthy and unhealthy relationships. Veterans discussed whether their relationships were unhealthy or healthy during use and how substance use makes it difficult to maintain healthy relationships. Communication, or lack thereof, was quickly identified as an important part of relationships and leads into the next group topic. RESPONSE: The was alert and attentive during the group and provided feedback appropriately. RISK ASSESSMENT: No new risk factors relevant to suicide or homicide were reported. No report of suicidal ideation or aggressive impulses. did not appear to be at imminent risk of harm to self or other Diagnoses: Primary Cannabis abuse ([facility] [id number]) - Cannabis abuse, uncomplicated (ICD- 10-CM F12.10) /sanjeev/ Sky Ramos [facility] Marketing [facility] Signed: 04/23/2024 11:23 /sanjeev/ ADINA Mcwilliams LCSW Clinical Retail Marketing Executive Cosigned: 04/23/2024 12:45 04/23/2024 ADDENDUM STATUS: COMPLETED I concur with assessment, interventions, and plan of action detailed in this record. The services provided by this Social Work TARP REPAIRER are reviewed during weekly qupm-wq-lgon supervision and conducted with sufficient time to meet, or exceed, supervision amounts required by [facility], licensure, and accreditation mandates. /sanjeev/ ADINA Mcwilliams, AVA Clinical Retail Marketing Executive Signed: 04/23/2024 12:46 SKY RAMOS [facility]SA
--- OUTSIDE RECORDS SUMMARY | 2025-02-23 11:00 | XMS_ITS | Encounter Summary ---
Author Name [facility] ([place]) Organization [facility] ([place]) Address [address] [place] [address] Support Name Relationship Address Phone FUAD CHRISTINE [...] MEDIC AID Aug 02, 2015 MEDICAI D [id number] [phone] STACIE SHAUNA PATIENT [facility] (WNR) MEDICAID MEDIC AID [facility] (WNR) Dec 01, 2023 MEDICAI D [id number] STACIE AYESHAUNA PATIENT Selected Encounter This section includes the information on record at [place] for the Encounter. Date/Time Encounter Type Encounter Description Reason Provider Source Oct 30, 2024 01:00 PM CASE MANAGEMENT [facility] - IND ICD-10-CM F60.3 Borderline personality disorder SHANEKA DAHL Peggy Encounter Template Text not used by [place] Assessments - Encounter Diagnoses This section includes the primary and secondary diagnoses documented for the Encounter. Date/Time Primary/Secondary Diagnosis Diagnosis Name Provider Source Oct 30, 2024 01:37 PM PRIMARY Borderline personality disorder FREDDY DAHL [facility] Oct 30, 2024 01:37 PM SECONDARY Cannabis abuse, uncomplicated FREDDY DAHL [facility] Oct 30, 2024 01:37 PM SECONDARY Reaction to severe stress, unspecified FREDDY DAHL [facility] Plan of Treatment: Future Appointments (+ 6 months) and Future Tests (+/- 45 days) The Plan of Treatment section includes future care activities for the patient [facility] [place] [facility]. This section includes future appointments and future orders which are active, pending or scheduled. Future Appointments This section includes appointments that were scheduled to occur 6 months from the date of the Encounter, up to a maximum of 20 appointments. The data comes from all [facility]. Appointment Date/Time Appointment Type Appointme nt Facility Name Nov 27, 2024 01:00 PM AMBULATORY - PSYCHIATRY [facility] Dec 04, 2024 01:00 PM AMBULATORY - PSYCHIATRY [facility] Dec 11, 2024 01:00 PM AMBULATORY - PSYCHIATRY [facility] Dec 18, 2024 01:00 PM AMBULATORY - PSYCHIATRY [facility] Dec 25, 2024 01:00 PM AMBULATORY - PSYCHIATRY [facility] February 05, 2025 09:30 AM AMBULATORY - PSYCHIATRY [facility] Apr 02, 2025 02:30 PM AMBULATORY - NONE [facility] Social History: Smoking Status (Most current) [...] AM VA-TOBACCO USE ALFONZO RY DAY CIGARETTES [facility] Tobacco Use History This section includes a history of the smoking, or tobacco-related health factors, that were collected on or before the date of the Encounter. The data comes from the [place] facility where the Encounter took place. Date/Time Smoking Status/Tobacco Use Comment F acility Aug 19, 2024 10:33 AM [place]-TOBACCO SCREEN FOLLOW-UP [facility] Aug 19, 2024 10:33 AM [place]-TOBACCO USE ADVICE [facility] Aug 19, 2024 10:33 AM VA-TOBACCO USE BIN TRIPPER OPERATOR NO [facility] Aug 19, 2024 10:33 AM VA-TOBACCO USE ALFONZO RY DAY CIGARETTES [facility] Aug 19, 2024 10:33 AM VA-TOBACCO USE MED YES [facility] Aug 19, 2024 10:33 AM VA-TOBACCO USE WI 30 MIN OF WAKEUP [facility] Encounter Notes: All associated encounter notes This section contains the clinical notes associated to the Encounter. Date/Time Encounter Note(s) Provider Source Oct 30, 2024 01:15 PM SOCIAL WORK CASE M GIAN NOTE: LOCAL TITLE: SOCIAL WORK CASE MANAGEMENT NOTE STANDARD TITLE: COBBLER APPRENTICE NOTE DATE OF NOTE: OCT 30, 2024@13:15 ENTRY DATE: OCT 30, 2024@13:15:26 AUTHOR: FREDDY DAHL COSIGNER: URGENCY: STATUS: COMPLETED SOCIAL WORK CONSULT STL Has ADDENDA [facility] Video Connect (VVC)/Video to [...] appropriate to conduct a CVT/VVC appointment. *Confirmed Murdock's Non-VA location for this appointment: Address: [address] [place] [address] County: [place] *Murdock was notified of right to decline Telehealth services and eligibility for other options. Murdock consented to be seen via CVT/VVC. EMERGENCY PLAN In the event of an emergency, the or family will call emergency services, if capable. Tele provider will remain in the virtual medical room until emergency response arrives and handoff to emergency services is complete. If Murdock is unable to make emergency call, Tele provider is to call the national E911 service at [phone] and ask to be connected to emergency services for the Murdock's location. Crisis Hotline: 526.511.8032 [place] Telehealth Technology Help Desk ([facility]): 114.172.6737 or 318-749-5771 SOCIAL WORK CASE MANAGEMENT NOTE Purpose of Visit: Follow-up mental health case management appointment Case Management Review: Ms. Shauna Hare is a 39-year-old, White, female, , non- service connected, [employer] receiving treatment under Special Authority/MST related care. 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 At time of call, was at their residence as listed above. was originally referred to case management for ESTELA and housing concerns. Murdock provided education and recovery oriented treatment plan options. Murdock chose to pursue Seeking Safety group. When discussing housing concerns, reported that she is stability housed and did not endorse housing needs at this time. reported during that session that she was interested in employment assistance. Consult to Compensated Work Therapy was entered per request. Psychosocial Acuity Rating Access to Care: Level 1 - Patient generally has all personal needs met. Economics: Level 2 - Patient has minor concerns with economics. Housing: Level 1 - Patient generally has all personal needs met. Psychological Status: Level 2 - Patient has minor concerns with psychological status. Social Supports: Level 2 - Patient has minor concerns with social supports. Functional Status: Level 2 - Patient has minor concerns with functional status. Have all goals been met? Yes Discharge from case management: Yes Social Work Case Management Level: Level 1 - Episodic Patient generally has all personal needs met with low psychosocial acuity rating. Generally one to two contacts needed. Social Work Case Management Intervention and Plan: Today, we reviewed progress since last session, discussed new goals of care and case management termination. 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 She is to begin her new position tomorrow. Thiago verbalized positive statements for hire and expressed future-oriented plans within the position. Upon review of Compensated Work Therapy consult, thiago has yet to be contacted. Thiago requested that consult be cancelled at this time due to finding employment. She verbalized appreciation for service and consult but declined further assistance. Message request entered on consult. pest control worker assessed for suicidal ideation and substance use. Thiago denied current suicidal ideation, plan, intent or preparatory behavior. She endorsed daily cannabis use stating that she uses it as a reward to herself. pest control worker discussed upcoming Seeking Safety group beginning 11/27/2024 and that associations such as this may be explored. Thiago declined further assistance, outside of entered group consult, pertaining to substance use disorders. pest control worker inquired if thiago had all needed medications and mental health appointments; she verbalized in the affirmative. pest control worker inquired if thiago obtained psychotherapy resources from her children's clinical support associate but she denied. She stated that she forgot but she will contact them for additional resources and questions. Murdock asked if she had new case management goals, she denied. She stated that she was gifted a vehicle and needs financial assistance to pay the registration fees. In [place], the state assistance program for this area has criteria that thiago does not meet. pest control worker encouraged thiago to contact the [employer] or a local [facility]SO for potential assistance as resources for this area are not known. She verbalized understanding. Thiago denied need for additional resources or mental health case management appointments. Murdock encouraged to reach out to [facility] team she would like to engage in case management again, in the future. She verbalized understanding. No RTC will be entered at this time. No new risk factors relevant to suicide or homicide reported. When considering all risk and protective factors, this did not appear to be at imminent risk to harm self or others at this time. Thiago remains sustainable as an outpatient. Duration: 30 minutes Location: [facility] Diagnosis: Borderline personality disorder Reaction to severe stress, unspecified Cannabis abuse, uncomplicated /es/ Freddy BETTSW Sap Consultant [facility] Signed: 10/30/2024 13:37 FREDDY DAHL [facility]
--- OUTSIDE RECORDS SUMMARY | 2025-02-23 11:00 | XMS_ITS | Encounter Summary ---
Author Name [facility] [place] Organization [facility] [place] Address [address] [place] [id number] Support Name Relationship Address Phone FUAD CHRISTINE [...] MEDIC AID Aug 02, 2015 MEDICAI D [id number] [phone] STACIE AYEJENNIFER PATIENT [facility] (WNR) MEDICAID MEDIC AID [facility] (WNR) Dec 01, 2023 MEDICAI D [id number] STACIE JENNIFER PATIENT Selected Encounter This section includes the information on record at [place] for the Encounter. Date/Time Encounter Type Encounter Description Reason Provider Source Aug 22, 2024 03:30 PM AL[facility] AND/OR [facility]UG [facility] ICD-10-CM F11.90 Opioid use, unspecified, uncomplicated VERNON WHITTINGTON IHPeggy Encounter Template Text not used by [place] Assessments - Encounter Diagnoses This section includes the primary and secondary diagnoses documented for the Encounter. Date/Time Primary/Secondary Diagnosis Diagnosis Name Provider Source Aug 22, 2024 04:48 PM PRIMARY Opioid use, unspecified, uncomplicated VERNON WHITTINGTON [facility] Plan of Treatment: Future Appointments (+ 6 months) and Future Tests (+/- 45 days) The Plan of Treatment section includes future care activities for the patient from all [place] [facility]. This section includes future appointments and future orders which are active, pending or scheduled. Future Appointments This section includes appointments that were scheduled to occur 6 months from the date of the Encounter, up to a maximum of 20 appointments. The data comes from all [place] treatment facilities. Appointment Date/Time Appointment Type Appointme [...] 01, 2024 02:00 PM AMBULATORY - NONE [facility] Oct 09, 2024 03:00 PM AMBULATORY - MEDICINE [facility] Oct 16, 2024 01:00 [...] and Hematology Lab Results on record with [place] for the patient. Radiology Reports and Pathology Reports are provided separately, in subsequent sections. Lab Results This section contains the Chemistry/Hematology Results that were resulted 30 days before or 30 daysafter the date of the Encounter. Date/Time Source Result Type Result - Unit Interpretation Reference Range Specimen Type Comment Sep 03, 2024 12:00 PM [facility] URINE DRUG SCREEN (STL) URINE Specimen Type: URINE Comment: The cut-off value for Fentanyl was laboratory developed and its performance characteristics confirmed by the [facility] laboratory thru method comparison with reference laboratory and medication chart review. The laboratory is regulated under CLIA as qualified to perform high-complexity testing. Fentanyl is used for clinical purposes in conjunction with other laboratory tests. Ordering Provider: DANIEL GOMEZ Report Released Date/Time: Sep 02, 2024 08:27 PM Reporting Lab: [facility] [phone] Performing Lab: [facility] [address] ETHANOL <10.0 mg/dL 0-9 AMPHET/METHAMPHETAMINE Negative ng/mL COCAINE METABOLITES Negative ng/mL BENZODIAZEPINES (STL) Negative ng/mL CANNABINOIDS POSITIVE ng/mL METHADONE Negative ng/mL OPIATES Negative ng/mL CREATININE URINE/OTHERS 110.1 mg/dL H 47.0 -110.0 OXYCODONE (BUSIC-KBF-IL) Negative ng/mL BUPRENORPHINE (STL-PB-MA) Negative ng/mL FENTANYL (STL-PB) Negative ng/mL Aug 25, 2024 02:03 PM [facility] URINE DRUG SCREEN (STL) URINE Specimen Type: URINE Comment: The cut-off value for Fentanyl was laboratory developed and its performance characteristics confirmed by the [facility] laboratory thru method comparison with reference laboratory and medication chart review. The laboratory is regulated under CLIA as qualified to perform high-complexity testing. Fentanyl is used for clinical purposes in conjunction with other laboratory tests. Ordering Provider: DANIEL GOMEZ Report Released Date/Time: Aug 24, 2024 07:24 PM Reporting Lab: [facility] [address] [facility] [address] Performing Lab: [facility] [address] [facility] [address] ETHANOL Negative mg/dL 0-20 AMPHET/METHAMPHETAMINE Negative ng/mL COCAINE METABOLITES Negative ng/mL BENZODIAZEPINES (STL) Negative ng/mL CANNABINOIDS POSITIVE ng/mL METHADONE Negative ng/mL OPIATES Negative ng/mL CREATININE URINE/OTHERS 39.0 mg/dL L 47-11 0 OXYCODONE ([id number]) Negative ng/mL BUPRENORPHINE (STL-PB-MA) Negative ng/mL FENTANYL (STL-PB) Negative ng/mL Aug 20, 2024 07:13 AM [facility] URINALYSIS W/ CX REFLEX (STL-PB) URINE Specim en Type: URINE No comment entered. Ordering Provider: DANIEL GOMEZ Report Released Date/Time: Aug 19, 2024 11:04 AM Reporting Lab: [facility] [place] [address] Performing Lab: [facility] [place] [address] URINE COLOR Yellow Yellow U.BILIRUBIN Negative mg/dL [...] GRAVITY 1.028 Aug 19, 2024 10:08 AM [facility] URINALYSIS (STL-PB) URINE Specimen Type: URIN E No comment entered. Ordering Provider: DANIEL GOMEZ Report Released Date/Time: Aug 16, 2024 03:45 PM Reporting Lab: [facility] [address] Performing Lab: [facility] [place] [address] URINE COLOR Yellow Yellow U.BILIRUBIN Negative mg/dL [...] 1.035 H Aug 19, 2024 10:08 AM [facility] TEST URINE (MA-STL) URINE Specimen Type: URINE No comment entered. Ordering Provider: DANIEL GOMEZ Report Released Date/Time: Aug 16, 2024 03:45 PM Reporting Lab: [facility] [address] Performing Lab: [facility] [address] Qualitative Test NEG NEGAT URBAN Aug 19, 2024 10:08 AM [facility] URINE DRUG SCREEN (STL) URINE Specimen Type: URINE Comment: The cut-off value for Fentanyl was laboratory developed and its performance characteristics confirmed by the [facility] laboratory thru method comparison with reference laboratory and medication chart review. The laboratory is regulated under CLIA as qualified to perform high-complexity testing. Fentanyl is used for clinical purposes in conjunction with other laboratory tests. Ordering Provider: DANIEL GOMEZ Report Released Date/Time: Aug 16, 2024 03:45 PM Reporting Lab: [facility] [address] Performing Lab: [facility] [address] ETHANOL Negative mg/dL 0-20 AMPHET/METHAMPHETAMINE Negative ng/mL COCAINE METABOLITES Negative ng/mL BENZODIAZEPINES (STL) Negative ng/mL CANNABINOIDS POSITIVE ng/mL METHADONE Negative ng/mL OPIATES POSITIVE ng/mL CREATININE URINE/OTHERS 266.1 mg/dL H 47.0 -110.0 OXYCODONE ([id number]) Negative ng/mL BUPRENORPHINE (STL-PB-MA) Negative ng/mL FENTANYL (STL-PB) Negative ng/mL Aug 19, 2024 10:00 AM [facility] CBC BLOOD Specimen Type: BLOOD No comment entered. Ordering Provider: DANIEL GOMEZ Report Released Date/Time: Aug 16, 2024 03:45 PM Reporting Lab: [facility] [address] Performing Lab: [facility] [address] WBC 12.7 10*3/uL H 3.6-11.2 RBC 4.19 [...] 0.00-0. 20 Aug 19, 2024 09:59 AM [facility] COMPREHENSIVE METABOLIC PANEL PLASMA Specimen Type: PLASMA Comment: No hemolysis noted. Ordering Provider: DANIEL GOMEZ Report Released Date/Time: Aug 16, 2024 03:45 PM Reporting Lab: [facility] [address] Performing Lab: [facility] [address] CREATININE 0.75 mg/dL 0.60-1.10 UREA NITROGEN 12.0 [...] 104.44 >60 Aug 19, 2024 09:59 AM [facility] PT/INR NEW (STL-MA) PLASMA Specimen Type: PLAS MA No comment entered. Ordering Provider: DANIEL GOMEZ Report Released Date/Time: Aug 16, 2024 03:45 PM Reporting Lab: [facility] [place] [address] Performing Lab: [facility] [address] PROTIME 9.4 s 9.4-12.5 INR VALUE 0.8 {INR} Aug 19, 2024 09:59 AM [facility] ETHANOL SERUM/PLASMA (STL) PLASMA Specimen Typ e: PLASMA Comment: No hemolysis noted. Ordering Provider: DANIEL GOMEZ Report Released Date/Time: Aug 16, 2024 03:45 PM Reporting Lab: [facility] [address] Performing Lab: [facility] [address] ETHANOL SERUM/PLASMA (STL) <10.0 mg/dL 0 -10 Aug 19, 2024 09:59 AM [facility] GGT GAMMA-GT PLASMA Specimen Type: PLASM A No comment entered. Ordering Provider: DANIEL GOMEZ Report Released Date/Time: Aug 16, 2024 03:45 PM Reporting Lab: [facility] [address] [facility] [address] Performing Lab: [facility] [address] [facility] [address] GGT GAMMA-GT 14 [IU]/L 12-64 Aug 19, 2024 09:59 AM [facility] MAGNESIUM PLASMA Specimen Type: PLASM A Comment: No hemolysis noted. Ordering Provider: DANIEL GOMEZ Report Released Date/Time: Aug 16, 2024 03:45 PM Reporting Lab: [facility] [address] Performing Lab: [facility] [address] MAGNESIUM 2.1 mg/dL 1.6-2.6 Aug 19, 2024 09:59 AM [facility] CPK SERUM Specimen Type: SERUM No comment entered. Ordering Provider: DANIEL GOMEZ Report Released Date/Time: Aug 16, 2024 03:45 PM Reporting Lab: [facility] [address] Performing Lab: [facility] [address] CPK 37 U/L 29-168 Aug 19, 2024 09:59 AM [facility] HEP C Ab HCV Ab (STL) SERUM Specimen Type: SE RUM No comment entered. Ordering Provider: DANIEL GOMEZ Report Released Date/Time: Aug 16, 2024 03:45 PM Reporting Lab: [facility] [address] [facility] [address] Performing Lab: [facility] [address] [facility] [address] HEP C Ab HCV Ab (STL) Nonreactive Nonrea ctive Aug 19, 2024 09:59 AM [facility] HIV COMBO FOURTH GENERATION (STL) SERUM Speci men Type: SERUM No comment entered. Ordering Provider: DANIEL GOMEZ Report Released Date/Time: Aug 16, 2024 03:45 PM Reporting Lab: [facility] [address] [facility] [address] Performing Lab: [facility] [address] [facility] [address] HIV COMBO FOURTH GENERATION (STL) Nonreactive Nonreactive Vital Signs: All taken on the encounter date This section contains inpatient and outpatient Vital Signs collected on the date of the Encounter. Date/Time Temperature Pulse Blood Pressure Respiratory Rate SP02 Pain Height Weight Body Mass Index Source Aug 22, 2024 06:56 AM 98.1 94 107/71 20 96 0 [facility] Social History: Smoking Status (Most [...] AM VA-TOBACCO USE ALFONZO RY DAY CIGARETTES [facility] Tobacco Use History This section includes a history of the smoking, or tobacco-related health factors, that were collected on or before the date of the Encounter. The data comes from the [place] facility where the Encounter took place. 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 Date/Time Encounter Note(s) Provider Source Aug 22, 2024 04:40 PM ADDICTION PSYCHIAT RY NOTE: LOCAL TITLE: [facility] STANDARD TITLE: ADDICTION PSYCHIATRY NOTE DATE OF NOTE: AUG 22, 2024@16:40 ENTRY DATE: AUG 22, 2024@16:40:13 AUTHOR: VERNON WHITTINGTON EXP COSIGNER: URGENCY: STATUS: COMPLETED GROUP TITLE: Learning New Activities in Recovery GROUP TIME: August 22 @ 3:30pm DURATION OF GROUP: 50 minutes NUMBER IN ATTENDANCE: 21 OBJECTIVE OF GROUP: participated in indoor activity of playing VeriShow style dominoes while sober. Participation was part of encouraging the to continue these practices after completing the program with family members and peers to develop a sober, healthy leisure lifestyle. Veterans who had never played the game were taught by service center assistant or other Veterans INTERVENTIONS: Education Leisure actives RESPONSE TO INTERVENTIONS (Optional): Veterans appeared to enjoy themselves. RISK ASSESSMENT: did not verbalize any new risk factors related to suicidal or homicidal ideation during session. PLAN: Continue to attend treatment and develop strategies to assist with recovery LEVEL OF ENGAGEMENT: played and was engaged throughout group.. DIAGNOSIS: Opioid Dependence /es/ Vernon Whittington Addiction Therapist, THANH SIMS [id number] Signed: 08/22/2024 16:56 VERNON WHITTINGTON [facility]
--- OUTSIDE RECORDS SUMMARY | 2025-02-23 11:00 | XMS_ITS | Encounter Summary ---
Author Name [facility] ([place] Organization [facility] ([place]) Address [address] [place] [id number] Support Name Relationship Address Phone FUAD CHRISTINE [...] MEDIC AID Aug 02, 2015 MEDICAI D [id number] [phone] STACIE JENNIFER PATIENT [facility] (WNR) MEDICAID MEDIC AID [facility] (WNR) Dec 01, 2023 MEDICAI D [id number] STACIE JENNIFER PATIENT Selected Encounter This section includes the information on record at [place] for the Encounter. Date/Time Encounter Type Encounter Description Reason Provider Source Sep 08, 2024 01:52 PM Inpatient Visit RRTP INDIVIDUAL ICD-10-CM F12.20 Cannabis dependence, uncomplicated SEVERADO,PRISCA LA IHE Encounter Template Text not used by [place] Assessments - Encounter Diagnoses This section includes the primary and secondary diagnoses documented for the Encounter. Date/Time Primary/Secondary Diagnosis Diagnosis Name Provider Source Sep 08, 2024 01:59 PM PRIMARY Cannabis dependence, uncomplicated [facility] A [facility] Sep 08, 2024 01:59 PM SECONDARY Anxiety disorder, unspecified SEVERLOPEZ QUACH [facility] Sep 08, 2024 01:59 PM SECONDARY Depression, unspecified SEVERADO,LOPEZ A [facility] Sep 08, 2024 01:59 PM SECONDARY Insomnia, unspecified [facility] Sep 08, 2024 01:59 PM SECONDARY Tobacco use [facility] Plan of Treatment: Future Appointments (+ 6 months) and Future Tests (+/- 45 days) The Plan of Treatment section includes future care activities for the patient [facility] [place] [facility]. This section includes future appointments and future orders which are active, pending or scheduled. Future Appointments This section includes appointments that were scheduled to occur 6 months from the date of the Encounter, up to a maximum of 20 appointments. The data comes from all [facility] facilities. Appointment Date/Time Appointment Type Appointme nt Facility Name Sep 10, 2024 12:30 PM AMBULATORY - PSYCHIATRY [facility] Sep 12, 2024 06:00 PM AMBULATORY - PSYCHIATRY [facility] Sep 17, 2024 06:00 PM AMBULATORY - PSYCHIATRY [facility] Sep 19, 2024 06:00 PM AMBULATORY - PSYCHIATRY [facility] Sep 26, 2024 06:00 PM AMBULATORY - PSYCHIATRY [facility] Oct 01, 2024 02:00 PM AMBULATORY - NONE [facility] Oct 09, 2024 03:00 PM AMBULATORY - MEDICINE [facility] Oct 16, 2024 01:00 PM AMBULATORY - PSYCHIATRY [facility] Oct 30, 2024 01:00 PM AMBULATORY - PSYCHIATRY [facility] Nov 27, 2024 01:00 PM AMBULATORY - PSYCHIATRY [facility] Dec 04, 2024 01:00 PM AMBULATORY - PSYCHIATRY [facility] Dec 11, 2024 01:00 PM AMBULATORY - PSYCHIATRY [facility] Dec 18, 2024 01:00 PM AMBULATORY - PSYCHIATRY [facility] Dec 25, 2024 01:00 PM AMBULATORY - PSYCHIATRY [facility] February 05, 2025 09:30 AM AMBULATORY - PSYCHIATRY [facility] Lab Results: +/- 30 days of [...] Sep 03, 2024 12:00 PM [facility] URINE DRUG SCREEN (STL) URINE [...] Sep 02, 2024 08:27 PM Reporting Lab: [facility] [phone] Performing Lab: [facility] [phone] ETHANOL <10.0 mg/dL 0-9 AMPHET/METHAMPHETAMINE Negative ng/mL COCAINE METABOLITES Negative ng/mL BENZODIAZEPINES (STL) Negative ng/mL CANNABINOIDS POSITIVE ng/mL METHADONE Negative ng/mL OPIATES Negative ng/mL CREATININE URINE/OTHERS 110.1 mg/dL H 47.0 -110.0 OXYCODONE ([id number]-LM) Negative ng/mL BUPRENORPHINE (STL-PB-MA) Negative ng/mL FENTANYL (STL-PB) Negative ng/mL Aug 25, 2024 02:03 PM [facility] URINE DRUG SCREEN (STL) URINE [...] 24, 2024 07:24 PM Reporting Lab: [facility] [address] [place] [phone] Performing Lab: [facility] [address] [facility] [phone] ETHANOL Negative mg/dL 0-20 AMPHET/METHAMPHETAMINE Negative ng/mL COCAINE METABOLITES Negative ng/mL BENZODIAZEPINES (STL) Negative ng/mL CANNABINOIDS POSITIVE ng/mL METHADONE Negative ng/mL OPIATES Negative ng/mL CREATININE URINE/OTHERS 39.0 mg/dL L 47-11 0 OXYCODONE (WXTFG-UHS-ES) Negative ng/mL BUPRENORPHINE (STL-PB-MA) Negative ng/mL FENTANYL (STL-PB) Negative ng/mL Aug 20, 2024 07:13 AM [facility] URINALYSIS W/ CX REFLEX (STL-PB) URINE Specim en Type: URINE No comment entered. Ordering Provider: DANIEL GOMEZ Report Released Date/Time: Aug 19, 2024 11:04 AM Reporting Lab: [facility] [phone] Performing Lab: [facility] [place] [phone] URINE COLOR Yellow Yellow U.BILIRUBIN Negative mg/dL [...] Aug 19, 2024 10:08 AM [facility] URINALYSIS (STL-PB) URINE Specimen Type: URIN E No comment entered. Ordering Provider: DANIEL GOMEZ Report Released Date/Time: Aug 16, 2024 03:45 PM Reporting Lab: [facility] [phone] Performing Lab: [facility] [place] [address] URINE COLOR Yellow Yellow U.BILIRUBIN Negative mg/dL [...] Aug 19, 2024 10:08 AM [facility] TEST URINE (MA-STL) URINE Specimen Type: URINE No comment entered. Ordering Provider: DANIEL GOMEZ Report Released Date/Time: Aug 16, 2024 03:45 PM Reporting Lab: [facility] [place] [address] Performing Lab: [facility] [place] [address] Qualitative Test NEG NEGAT URBAN Aug 19, 2024 10:08 AM [facility] URINE DRUG SCREEN (STL) URINE [...] Reporting Lab: [facility] [place] [address] Performing Lab: [facility] [place] [address] ETHANOL Negative mg/dL 0-20 AMPHET/METHAMPHETAMINE Negative ng/mL COCAINE METABOLITES Negative ng/mL BENZODIAZEPINES (STL) Negative ng/mL CANNABINOIDS POSITIVE ng/mL METHADONE Negative ng/mL OPIATES POSITIVE ng/mL CREATININE URINE/OTHERS 266.1 mg/dL H 47.0 -110.0 OXYCODONE (NXSWT-CYQ-OI) Negative ng/mL BUPRENORPHINE (STL-PB-MA) Negative ng/mL FENTANYL (STL-PB) Negative ng/mL Aug 19, 2024 10:00 AM [facility] CBC BLOOD Specimen Type: BLOOD No comment entered. Ordering Provider: DANIEL GOMEZ Report Released Date/Time: Aug 16, 2024 03:45 PM Reporting Lab: [facility] [phone] Performing Lab: [facility] [facility] [phone] WBC 12.7 10*3/uL H 3.6-11.2 RBC 4.19 [...] 2024 09:59 AM [facility] COMPREHENSIVE METABOLIC PANEL PLASMA Specimen Type: PLASMA Comment: No hemolysis noted. Ordering Provider: DANIEL GOMEZ Report Released Date/Time: Aug 16, 2024 03:45 PM Reporting Lab: [facility] [place] [address] Performing Lab: [facility] [place] [address] CREATININE 0.75 mg/dL 0.60-1.10 UREA NITROGEN 12.0 [...] 104.44 >60 Aug 19, 2024 09:59 AM [facility] PT/INR NEW (STL-MA) PLASMA Specimen Type: PLAS MA No comment entered. Ordering Provider: DANIEL GOMEZ Report Released Date/Time: Aug 16, 2024 03:45 PM Reporting Lab: [facility] [place] [address] Performing Lab: [facility] [place] [address] PROTIME 9.4 s 9.4-12.5 INR VALUE 0.8 {INR} Aug 19, 2024 09:59 AM [facility] ETHANOL SERUM/PLASMA (STL) PLASMA Specimen Typ e: PLASMA Comment: No hemolysis noted. Ordering Provider: DANIEL GOMEZ Report Released Date/Time: Aug 16, 2024 03:45 PM Reporting Lab: [facility] [place] [address] Performing Lab: [facility] [facility] [phone] ETHANOL SERUM/PLASMA (STL) <10.0 mg/dL 0 -10 Aug 19, 2024 09:59 AM [facility] GGT GAMMA-GT PLASMA Specimen Type: PLASM A No comment entered. Ordering Provider: DANIEL GOMEZ Report Released Date/Time: Aug 16, 2024 03:45 PM Reporting Lab: [facility] [address] [facility] [phone] Performing Lab: [facility] [address] [facility] [phone] GGT GAMMA-GT 14 [IU]/L 12-64 Aug 19, 2024 09:59 AM [facility] MAGNESIUM PLASMA Specimen Type: PLASM A Comment: No hemolysis noted. Ordering Provider: DANIEL GOMEZ Report Released Date/Time: Aug 16, 2024 03:45 PM Reporting Lab: [facility] [facility] [phone] Performing Lab: [facility] [facility] [phone] MAGNESIUM 2.1 mg/dL 1.6-2.6 Aug 19, 2024 09:59 AM [facility] CPK SERUM Specimen Type: SERUM No comment entered. Ordering Provider: DANIEL GOMEZ Report Released Date/Time: Aug 16, 2024 03:45 PM Reporting Lab: [facility] [facility] [phone] Performing Lab: [facility] [facility] [phone] CPK 37 U/L 29-168 Aug 19, 2024 09:59 AM [facility] HEP C Ab HCV Ab (STL) SERUM Specimen Type: SE RUM No comment entered. Ordering Provider: DANIEL GOMEZ Report Released Date/Time: Aug 16, 2024 03:45 PM Reporting Lab: [facility] [address] [facility] [phone] Performing Lab: [facility] [address] [facility] [address] HEP C Ab HCV Ab (STL) Nonreactive Nonrea ctive Aug 19, 2024 09:59 AM [facility] HIV COMBO FOURTH GENERATION (STL) SERUM Speci men Type: SERUM No comment entered. Ordering Provider: DANIEL GOMEZ Report Released Date/Time: Aug 16, 2024 03:45 PM Reporting Lab: [facility] [address] [facility] [address] Performing Lab: [facility] [address] [facility] [address] HIV COMBO FOURTH GENERATION (STL) Nonreactive Nonreactive [...] USE ALFONZO RY DAY CIGARETTES [facility] Tobacco Use History This section includes a history of the smoking, or tobacco-related health factors, that were collected on or before the date of the Encounter. The data comes from the [place] facility where the Encounter took place. Date/Time Smoking Status/Tobacco Use Comment F acility Aug 19, 2024 10:33 AM VA-TOBACCO SCREEN FOLLOW-UP [facility] Aug 19, 2024 10:33 AM VA-TOBACCO USE ADVICE [facility] Aug 19, 2024 10:33 AM VA-TOBACCO USE CERTIFIED PERSONAL FINANCE COUNSELOR NO [facility] Aug 19, 2024 10:33 AM VA-TOBACCO USE ALFONZO RY DAY CIGARETTES [facility] Aug 19, 2024 10:33 AM VA-TOBACCO USE MED YES [facility] Aug 19, 2024 10:33 AM VA-TOBACCO USE WI 30 MIN OF WAKEUP [facility] Encounter Notes: All associated encounter notes This section contains the clinical notes associated to the Encounter. Date/Time Encounter Note(s) Provider Source Sep 08, 2024 01:52 PM PHYSICIAN EDUCATIO N DISCHARGE NOTE: LOCAL TITLE: DISCHARGE INSTRUCTIONS [facility] STANDARD TITLE: PHYSICIAN EDUCATION DISCHARGE NOTE DATE OF NOTE: SEP 08, 2024@13:52 ENTRY DATE: SEP 08, 2024@13:53:05 AUTHOR: [facility] COSIGNER: DOMINGUEZ SHAIKH URGENCY: STATUS: COMPLETED 1. INSTRUCTIONS following DISCHARGE from Inpatient Psychiatry: You are discharged from inpatient status following treatment for a psychiatric illness/disorder: Cannabis use disorder 2. FOLLOW UP TREATMENT: Your treatment is to continue in an outpatient setting. Please be sure to keep your appointment. If you need to contact us prior to your appointment, call the phone number listed next to your appointment or the number listed in #9 at the end of these instructions. If you have no future appointment with us, please call the number listed at the bottom of this note. If you are not continuing your treatment in the Substance Abuse Rehabilitation Program at [facility], a nurse will be contacting you by telephone in about 7 days after your discharge. 3. FUTURE APPOINTMENT(S): *Physician must review to ensure appropriate appointments are listed To reschedule [facility] appointments call and use extension below. DATE/TIME CLINIC PHONE NUMBER 09/10/24 12:30 pm [facility] [phone] 10/01/24 11:00 am KARLY-MAMM AM [phone] 10/01/24 12:00 pm KARLY-ULTRASOUND B PM [phone] 10/01/24 2:00 pm LEVI-HW BFA GRP BLDG 10/09/24 3:00 pm LEVI-PACT E13 PCP 4. DISCHARGE MEDICATIONS: Patient was discharged on the medications listed below and was given a 30-day supply with 1 refill for most medications. TO HELP YOU UNDERSTAND YOUR DRUG LIST ACTIVE ...means that you are presently taking these meds. SUSPENDED means that your prescription is active and in the mail order process. PENDING ..means that the medication has just been renewed, or, just ordered. HOLD .....means that the medication is active on your list, but will not be processed until pharmacy receives further instructions from you or your doctor to proceed with filling the prescription for delivery. NON-VA ...means you are getting the medication from somewhere besides the [place]. Active Outpatient Medications (including Supplies): Active Outpatient Medications Status 1) MED ORGANIZER 7DAY/4 SLOT APEX#[id number] USE PILLBOX ACTIVE ONE-TIME FOR MEDICATION STORAGE/PLANNING 2) NALOXONE HCL 4MG/SPRAY SOLN NASAL SPRAY USE 1 SPRAY ACTIVE (4MG) INTO ONE NOSTRIL ONLY ONE-TIME FOR OPIOID OVERDOSE DO NOT PRIME NASAL SPRAY. SPRAY ONE DOSE IN ONE NOSTRIL, GIVE ADDITIONAL DOSE IF PATIENT DOES NOT START BREATHING WITHIN 2-3 MINUTES OR STOPS BREATHING AGAIN. CALL 911. IF USED, NOTIFY PROVIDER. 3) NICOTINE 14MG/24HR PATCH APPLY 1 PATCH TO SKIN SITE ACTIVE EVERY MORNING REMOVE OLD PATCH BEFORE APPLYING NEW ONE. ROTATE SITES. DO NOT SMOKE WHILE WEARING PATCH. 4) NICOTINE 7MG/24HR PATCH APPLY 1 PATCH TO SKIN SITE ACTIVE EVERY MORNING REMOVE OLD PATCH BEFORE APPLYING NEW ONE. ROTATE SITES. DO NOT SMOKE WHILE WEARING PATCH. 5) TABLET CUTTER USE TABLET CUTTER ONE-TIME NEEDED ACTIVE FOR TABLET CUTTING Pending Outpatient Medications Status 1) ACETAMINOPHEN 500MG TAB TAKE ONE TABLET BY MOUTH FOUR PENDING TIMES A DAY NEEDED CAUTION: DO NOT EXCEED 4000MG PER DAY ACETAMINOPHEN (APAP) FROM ALL MEDS. 2) ALBUTEROL 90MCG (CFC-F) 200D ORAL INHL INHALE 2 PUFFS PENDING BY ORAL INHALATION FOUR TIMES A DAY NEEDED SHAKE WELL. RINSE MOUTHPIECE FREQUENTLY TO PREVENT CLOGGING. 3) ATOMOXETINE 40MG CAP TAKE ONE CAPSULE BY MOUTH EVERY PENDING MORNING 4) BUPROPION HCL 300MG 24HR SA TAB TAKE ONE TABLET BY PENDING MOUTH ONCE A DAY SWALLOW WHOLE - DO NOT CRUSH OR CHEW. 5) BUSPIRONE HCL 15MG TAB TAKE ONE-HALF TABLET BY MOUTH PENDING THREE TIMES A DAY DO NOT TAKE WITH GRAPEFRUIT JUICE. 6) ESCITALOPRAM OXALATE 20MG TAB TAKE ONE AND ONE-HALF PENDING TABLETS BY MOUTH EVERY MORNING 7) IBUPROFEN 800MG TAB TAKE ONE TABLET BY MOUTH THREE PENDING TIMES A DAY NEEDED TAKE WITH FOOD. 8) LORATADINE 10MG TAB TAKE ONE TABLET BY MOUTH ONCE A PENDING DAY NEEDED ON EMPTY STOMACH 9) MELATONIN 3MG CAP/TAB TAKE ONE CAP/TAB BY MOUTH AT PENDING BEDTIME NEEDED 10) NICOTINE 21MG/24HR PATCH APPLY 1 PATCH TO SKIN SITE PENDING EVERY MORNING REMOVE OLD PATCH BEFORE APPLYING NEW ONE. ROTATE SITES. DO NOT SMOKE WHILE WEARING PATCH. 11) NICOTINE 4MG GUM CHEW 1 PIECE OF GUM BY MOUTH EVERY 4 PENDING HOURS NEEDED CHEW GUM UNTIL TINGLING SENSATION, THEN PARK THE GUM BETWEEN CHEEK AND GUM AREA. REPEAT (RE-CHEW) WHEN TINGLING STOPS. 12) OLANZAPINE 10MG TAB TAKE ONE-HALF TABLET BY MOUTH AT PENDING BEDTIME 13) TRAZODONE HCL 100MG TAB TAKE ONE AND ONE-HALF TABLETS PENDING BY MOUTH AT BEDTIME 14) TRIAMCINOLONE ACETONIDE 0.1% CREAM APPLY LIGHTLY TO PENDING AFFECTED AREA(S) TWICE A DAY (EXTERNAL USE ONLY) Active Non-VA Medications Status 1) Non-VA TRIAMCINOLONE OINT,TOP .025 TO AFFECTED ACTIVE AREA(S) ONCE A DAY 20 Total Medications Medication changes made during admission: 08/19/24 (admission): [...] Will increase Bupropion XL to 300mg daily. At your next appointment, please remember to bring all of your medication bottles with you Medication Reconciliation: I have discussed active and pending medications with the patient and/or healthcare project manager. I have made changes as appropriate............... ....YES 5. DISCHARGE MEDICATION INSTRUCTION: If you have any questions or concerns about your medications at this time, please ask your doctor/nurse/pharmacist prior to leaving the hospital. 6. DISCHARGE DIETARY INSTRUCTIONS: No Dietary Instructions If you have questions, contact the dietitians at . Current Diet: REGULAR (08/19/24) 7. DISCHARGE PHYSICAL ACTIVITY INSTRUCTIONS: No activity restrictions 8. [place] has been informed that they are at higher risk for overdose after a period of abstinence and that the following steps should be taken to prevent overdose if they choose to use: Cut your dose in half Wait after dosing to feel the effects before dosing again Don't use alone 9. In case of emergency, call or go to the emergency room. [place] Patients: Rocky Larsen [place] [id number] [facility] NOTE: If you are having feelings of Depression or Emotional Distress, or feel you just need to talk with someone, please call PRESS 1. COPY PROVIDED TO PATIENT PATIENT'S PERCEPTION OF NEEDS AND PREFERENCES: I need to learn how to motivate myself I need to find healthy support people I need help feeling less sad, angry or afraid I need to sleep better at night Knowledge about how to overcome an emotional problem or mental illness I need skills to help me cope with the effects of a terrible experience I need stress reduction or relaxation PATIENT'S STRENGTHS/ABILITIES: Expressed desire/motivation for change Interested in vocational development Education Housing Hope Resiliency Able to maintain IADLs Empathetic Humor and playfulness /sanjeev/ [facility] Advanced Practice Registered Nurse - Mental Health Signed: 09/08/2024 13:59 /sanjeev/ Dominguez Shaikh MD MPH. Staff Physician, Psychiatry Cosigned: 09/09/2024 08:29 [facility]
--- OUTSIDE RECORDS SUMMARY | 2025-02-23 11:01 | XMS_ITS | Continuity of Care Document ---
Author Name [facility] Organization [facility] Care Team Providers Care Image Archivist Name Role Phone [facility] Unavailable Unavailable Problems Combined list of problems from Department of Defense and Veterans Affairs facilities. It does not include entries that were removed or entered in error. 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 History and exam demetria suggestive of BPPV and no exam findings [...] smoker; instruc greyson to consider nicotine cessation DoD Test Active Condition DoD Admits alcohol use Active Condition [facility] Anxiety Active Condition [facility] Cannabis abuse Active Condition [facility] Cannabis dependence, continuous Active Condition [facility] Cocaine user Active Condition [facility] Insomnia Active Condition [facility] Opioid dependence Active Condition [facility] Tobacco use Active Condition [facility] Diagnosis: ICD-10-CM F12.20 Cannabis dependence, uncomplicated Active Diagnosis [facility] Diagnosis: ICD-10-CM F12.10 Cannabis abuse, uncomplicated Active Diagnosis [facility] Diagnosis: ICD-10-CM F11.90 Opioid use, unspecified, uncomplicated Active Diagnosis [facility] Diagnosis: ICD-10-CM F60.3 Borderline personality disorder Active Diagnosis [facility] Diagnosis: ICD-10-CM Z71.81 Spiritual or rastafarian counseling Active Diagnosis [facility] Diagnosis: ICD-10-CM Z63.0 Problems in relationship with spouse or partner Active Diagnosis [facility] Diagnosis: ICD-10-CM F43.12 Post-traumatic stress disorder, chronic Active Diagnosis [facility] Diagnosis: ICD-10-CM F14.90 Cocaine use, unspecified, uncomplicated Active Diagnosis [facility] Diagnosis: ICD-10-CM Z71.89 Other specified counseling Active Diagnosis [facility] Diagnosis: ICD-10-CM F10.90 Alcohol use, unspecified, uncomplicated Active Diagnosis [facility] Diagnosis: ICD-10-CM R45.851 Suicidal ideations Active Diagnosis [facility] Diagnosis: ICD-10-CM Z71.9 Counseling, unspecified Active Diagnosis [facility] Diagnosis: ICD-10-CM N64.9 Disorder of breast, unspecified Active Diagnosis [facility] Diagnosis: ICD-10-CM F19.99 Oth psychoactive substance use, unsp w unsp disorder Active Diagnosis [facility] Diagnosis: ICD-10-CM G47.00 Insomnia, unspecified Active Diagnosis [facility] Diagnosis: ICD-10-CM F41.9 Anxiety disorder, unspecified Active Diagnosis [facility] Admit Reason: POLYSUBSTANCE DEPENDENCE Active Diagnosis [facility] Diagnosis: ICD-10-CM Z59.9 Problem related to housing and economic circumstances, unsp Active Diagnosis [facility] Diagnosis: ICD-10-CM F10.21 Alcohol dependence, in remission Active Diagnosis [facility] Diagnosis: ICD-10-CM F12.90 Cannabis use, unspecified, uncomplicated Active Diagnosis [facility] Diagnosis: ICD-10-CM F43.10 Post-traumatic stress disorder, unspecified Active Diagnosis [facility] Medications Combined list of outpatient medications from Department of Defense and [facility] facilities.Medications provided include 1) outpatient medications [...] ALL MEDS. ORAL DISCONT INUED (EDIT) 08/21/2025 [id number] DANIEL GOMEZ 2023 28 [facility] ACETAMINOPH EN 500MG TAB TAKE ONE TABLET BY MOUTH FOUR TIMES A DAY NEEDED FOR PAIN CAUTION: DO NOT EXCEED 4000MG PER DAY ACETAMIN OPHEN (APAP) FROM ALL MEDS. ORAL 10/08/2024 [id number] 4 [facility] 2023 100 [facility] ALBUTEROL SO4 90MCG/ACTUA T (CFC-F) INHL,ORAL,8 .5GM INHALE 2 PUFFS BY ORAL INHALATI ON FOUR TIMES A DAY NEEDED FOR COPD SHAKE WELL. RINSE MOUTHPIE CE FREQUENT LY TO PREVENT CLOGGING . RESPIR ATORY (INHAL ATION) DISCONT INUED (EDIT) 09/19/2024 [id number] 4 NATIVIDAD GOMEZHURI 2023 1 [facility] ALBUTEROL SO4 90MCG/ACTUA T (CFC-F) INHL,ORAL,8 .5GM INHALE 2 PUFFS BY ORAL INHALATI ON FOUR TIMES A DAY NEEDED FOR COPD SHAKE WELL. RINSE MOUTHPIE CE FREQUENT LY TO PREVENT CLOGGING . RESPIR ATORY (INHAL ATION) 10/08/2024 [id number] 4 [facility] 2023 1 [facility] ATOMOXETINE 40MG CAP TAKE ONE CAPSULE BY MOUTH EVERY MORNING ORAL DISCONT INUED (EDIT) 10/08/2024 [id number] 4 [facility] 2023 30 [facility] ATOMOXETINE 40MG CAP TAKE ONE CAPSULE BY MOUTH EVERY MORNING ORAL DISCONT INUED (EDIT) 08/31/2025 [id number] 4 BRYAN SHAIKH 2023 10 [facility] ATOMOXETINE 40MG CAP TAKE ONE CAPSULE BY MOUTH EVERY MORNING ORAL DISCONT INUED (EDIT) 08/21/2025 [id number] 4 GONZALEZESTELAElizabeth DANIEL 2023 7 [facility] ATOMOXETINE 40MG CAP TAKE ONE CAPSULE BY MOUTH EVERY MORNING ORAL DISCONT INUED 05/09/2025 [id number] 4 SHARONA MOFFETT 2023 90 [facility] ATOMOXETINE 40MG CAP TAKE ONE CAPSULE BY MOUTH EVERY MORNING ORAL 04/21/2024 [id number] 4 SHARONA MOFFETT 2023 30 [facility] ATOMOXETINE 40MG CAP TAKE ONE CAPSULE BY MOUTH EVERY MORNING ORAL 02/15/2024 [id number] 4 SHARONA MOFFETT 2023 30 [facility] ATOMOXETINE 60MG CAP TAKE ONE CAPSULE BY MOUTH EVERY MORNING ORAL ACTIVE 03/30/2025 [id number] 5 EDU GRIFFIN 2024 90 [facility] ATOMOXETINE 60MG CAP TAKE ONE CAPSULE BY MOUTH EVERY MORNING ORAL 12/09/2024 [id number] 4 SHARONA MOFFETT 2023 90 [facility] BUPROPION HCL 100MG 12HR TAB,SA TAKE ONE TABLET BY MOUTH ONCE A DAY FOR DEPRESSI ON SWALLOW WHOLE - DO NOT CRUSH OR CHEW. ORAL DISCONT INUED BY ALEXANDRE R 05/23/2025 [id number] 4 SHARONA MOFFETTESTHA 2023 30 [facility] BUPROPION HCL 150MG 24HR TAB,SA TAKE ONE TABLET BY MOUTH ONCE A DAY SWALLOW WHOLE - DO NOT CRUSH OR CHEW. ORAL DISCONT INUED (EDIT) 08/31/2025 [id number] 4 BRYAN SHAIKH 2023 10 [facility] BUPROPION HCL 150MG 24HR TAB,SA TAKE ONE TABLET BY MOUTH ONCE A DAY FOR DEPRESSI ON SWALLOW WHOLE - DO NOT CRUSH OR CHEW. ORAL DISCONT INUED (EDIT) 08/21/2025 [id number] 4 DANIEL GOMEZ 2023 7 [facility] BUPROPION HCL 300MG 24HR TAB,SA TAKE ONE TABLET BY MOUTH ONCE A DAY FOR DEPRESSI ON SWALLOW WHOLE - DO NOT CRUSH OR CHEW. ORAL DISCONT INUED (EDIT) 10/03/2024 [id number] 4 [facility] [place] 2023 7 [facility] BUPROPION HCL 300MG 24HR TAB,SA TAKE ONE TABLET BY MOUTH ONCE A DAY FOR DEPRESSI ON SWALLOW WHOLE - DO NOT CRUSH OR CHEW. ORAL 11/16/2024 [id number] 5 SHARONA MOFFETT 2024 30 [facility] BUPROPION HCL 300MG 24HR TAB,SA TAKE ONE TABLET BY MOUTH ONCE A DAY FOR DEPRESSI ON SWALLOW WHOLE - DO NOT CRUSH OR CHEW. ORAL 10/08/2024 [id number] 4 [facility] [place] 2023 30 [facility] BUSPIRONE HCL 15MG TAB TAKE ONE TABLET BY MOUTH THREE TIMES A DAY DO NOT TAKE WITH GRAPEFRU IT JUICE. ORAL DISCONT INUED BY ALEXANDRE Gray 04/09/2025 [id number] 5 EDU GRIFFIN 2024 270 [facility] BUSPIRONE HCL 15MG TAB TAKE ONE TABLET BY MOUTH THREE TIMES A DAY DO NOT TAKE WITH GRAPEFRU IT JUICE. ORAL DISCONT INUED 03/11/2025 [id number] 5 SHARONA MOFFETT 2024 270 [facility] BUSPIRONE HCL 15MG TAB TAKE ONE-HALF TABLET BY MOUTH THREE TIMES A DAY FOR ANXIETY DO NOT TAKE WITH GRAPEFRU IT JUICE. ORAL DISCONT INUED (EDIT) 10/08/2024 [id number] 4 [facility] [place] 2023 45 [facility] BUSPIRONE HCL 15MG TAB TAKE ONE-HALF TABLET BY MOUTH THREE TIMES A DAY DO NOT TAKE WITH GRAPEFRU IT JUICE. ORAL DISCONT INUED (EDIT) 09/29/2024 [id number] 4 BRYAN SHAIKH 2023 15 [facility] BUSPIRONE HCL 15MG TAB TAKE ONE TABLET BY MOUTH THREE TIMES A DAY DO NOT TAKE WITH GRAPEFRU IT JUICE. ORAL 12/09/2024 [id number] 5 SHARONA MOFFETT 2024 270 [facility] ESCITALOPRA M OXALATE 20MG TAB TAKE ONE AND ONE-HALF TABLETS BY MOUTH EVERY MORNING ORAL ACTIVE 04/09/2025 [id number] 5 EDU GRIFFIN 2024 135 [facility] ESCITALOPRA M OXALATE 20MG TAB TAKE ONE AND ONE-HALF TABLETS BY MOUTH EVERY MORNING ORAL DISCONT INUED 03/11/2025 [id number] 5 SHARONA MOFFETT 2024 135 [facility] ESCITALOPRA M OXALATE 20MG TAB TAKE ONE AND ONE-HALF TABLETS BY MOUTH EVERY MORNING ORAL DISCONT INUED 02/01/2025 [id number] 5 SHARONA MOFFETT 2024 90 [facility] ESCITALOPRA M OXALATE 20MG TAB TAKE ONE AND ONE-HALF TABLETS BY MOUTH EVERY MORNING ORAL DISCONT INUED 10/08/2024 [id number] 4 [facility] [place] 2023 45 [facility] ESCITALOPRA M OXALATE 20MG TAB TAKE ONE AND ONE-HALF TABLETS BY MOUTH EVERY MORNING ORAL DISCONT INUED (EDIT) 08/31/2025 [id number] 4 BRYAN SHAIKH 2023 15 [facility] ESCITALOPRA M OXALATE 20MG TAB TAKE ONE AND ONE-HALF TABLETS BY MOUTH EVERY MORNING ORAL DISCONT INUED (EDIT) 08/21/2025 [id number] 4 DANIEL GOMEZ 2023 11 [facility] ESCITALOPRA M OXALATE 20MG TAB TAKE ONE AND ONE-HALF TABLETS BY MOUTH ONCE A DAY ORAL DISCONT INUED 03/23/2025 [id number] 4 SHARONA MOFFETT 2023 135 [facility] ESCITALOPRA M OXALATE 20MG TAB TAKE ONE-HALF TABLET BY MOUTH ONCE A DAY FOR 14 DAYS, AND TAKE ONE TABLET ONCE A DAY FOR 60 DAYS ORAL DISCONT INUED (EDIT) 03/30/2024 [id number] 4 BETINA JOSEYJAYLON LEEESTHA 2023 67 [facility] ESCITALOPRA M OXALATE 20MG TAB TAKE ONE AND ONE-HALF TABLETS BY MOUTH EVERY MORNING FOR DEPRESSI ON/ANXIE TY ORAL 11/21/2024 [id number] 5 BETINA JOSEYJAYLON LEEESTHA 2024 45 [facility] ESCITALOPRA M OXALATE 20MG TAB TAKE ONE AND ONE-HALF TABLETS BY MOUTH EVERY MORNING ORAL 10/10/2024 [id number] 5 BETINA JOSEYJAYLON DEVLIN 2024 45 [facility] HYDROXYZINE HCL 25MG TAB TAKE ONE TABLET BY MOUTH THREE TIMES A DAY NEEDED *MAY CAUSE DROWSINE SS* ORAL DISCONT INUED BY PROVIDE R 08/22/2025 [id number] [facility] [place] 2023 21 [facility] HYDROXYZINE HCL 50MG TAB TAKE ONE TABLET BY MOUTH AT BEDTIME NEEDED *MAY CAUSE DROWSINE SS* ORAL DISCONT INUED BY PROVIDE R 08/24/2025 [id number] JESUSITA TRAN 2023 7 [facility] IBUPROFEN 800MG TAB TAKE ONE TABLET BY MOUTH THREE TIMES A DAY NEEDED FOR PAIN TAKE WITH FOOD. ORAL DISCONT INUED (EDIT) 08/21/2025 [id number] 4 DANIEL GOMEZ 2023 21 [facility] IBUPROFEN 800MG TAB TAKE ONE TABLET BY MOUTH THREE TIMES A DAY NEEDED FOR PAIN TAKE WITH FOOD. ORAL 10/08/2024 [id number] 4 [facility] [place] 2023 60 [facility] LORATADINE 10MG TAB TAKE ONE TABLET BY MOUTH ONCE A DAY NEEDED ON EMPTY STOMACH ORAL DISCONT INUED (EDIT) 08/31/2025 [id number] 4 BRYAN SHAIKH NDRA S 2023 10 [facility] LORATADINE 10MG TAB TAKE ONE TABLET BY MOUTH ONCE A DAY NEEDED FOR ALLERGIC RHINITIS ON EMPTY STOMACH ORAL DISCONT INUED (EDIT) 08/21/2025 [id number] 4 DANIEL GOMEZ 2023 7 [facility] LORATADINE 10MG TAB TAKE ONE TABLET BY MOUTH ONCE A DAY NEEDED FOR ALLERGIC RHINITIS ON EMPTY STOMACH ORAL 10/08/2024 [id number] [facility] [place] 2023 30 [facility] MELATONIN 3MG CAP/TAB TAKE ONE CAP/TAB BY MOUTH AT BEDTIME ORAL ACTIVE 05/09/2025 [id number] 5 EDU GRIFFIN 2024 120 [facility] MELATONIN 3MG CAP/TAB TAKE ONE CAP/TAB BY MOUTH AT BEDTIME ORAL DISCONT INUED 04/10/2025 [id number] 5 SHARONA MOFFETT 2024 120 [facility] MELATONIN 3MG CAP/TAB TAKE ONE CAP/TAB BY MOUTH AT BEDTIME FOR SLEEP ORAL DISCONT INUED 02/15/2025 [id number] 5 SHARONA MOFFETT 2024 120 [facility] MELATONIN 3MG CAP/TAB TAKE ONE CAP/TAB BY MOUTH AT BEDTIME NEEDED ORAL DISCONT INUED (EDIT) 08/31/2025 [id number] 4 BRYAN SHAIKH NDRA S 2023 10 [facility] MELATONIN 3MG CAP/TAB TAKE ONE CAP/TAB BY MOUTH AT BEDTIME NEEDED ORAL DISCONT INUED (EDIT) 08/24/2025 [id number] 4 MARCJESUSITA JERSEY Gagnon 2023 7 [facility] MELATONIN 3MG CAP/TAB TAKE ONE CAP/TAB BY MOUTH AT BEDTIME NEEDED FOR SLEEP ORAL 10/08/2024 [id number] 4 [facility] [place] 2023 30 [facility] NALOXONE HCL 4MG/SPRAY SOLN,SPRAY, NASAL USE 1 SPRAY (4MG) INTO ONE NOSTRIL ONLY ONE-TIME FOR OPIOID OVERDOSE DO NOT PRIME NASAL SPRAY. SPRAY ONE DOSE IN ONE NOSTRIL, GIVE ADDITION AL DOSE IF PATIENT DOES NOT START BREATHIN G WITHIN 2-3 MINUTES OR STOPS BREATHIN G AGAIN. CALL 911. IF USED, NOTIFY PROVIDER . NASAL DISCONT INUED 09/18/2024 [id number] 4 DANIEL GOMEZ 2023 2 [facility] NALOXONE HCL 4MG/SPRAY SOLN,SPRAY, NASAL USE 1 SPRAY (4MG) INTO ONE NOSTRIL ONLY ONE-TIME FOR OPIOID OVERDOSE DO NOT PRIME NASAL SPRAY. SPRAY ONE DOSE IN ONE NOSTRIL, GIVE ADDITION AL DOSE IF PATIENT DOES NOT START BREATHIN G WITHIN 2-3 MINUTES OR STOPS BREATHIN G AGAIN. CALL 911. IF USED, NOTIFY PROVIDER . NASAL 10/11/2024 [id number] 4 SHARONA MOFFETT 2023 2 [facility] NICOTINE 14MG/24HRS PATCH APPLY 1 PATCH TO SKIN SITE EVERY MORNING REMOVE OLD PATCH BEFORE APPLYING NEW ONE. ROTATE SITES. DO NOT SMOKE WHILE WEARING PATCH. TRANSD ERMAL ACTIVE 05/23/2025 [id number] 4 SHARONA MOFFETT 2023 28 [facility] NICOTINE 21MG/24HRS PATCH APPLY 1 PATCH TO SKIN SITE EVERY MORNING REMOVE OLD PATCH BEFORE APPLYING NEW ONE. ROTATE SITES. DO NOT SMOKE WHILE WEARING PATCH. TRANSD ERMAL DISCONT INUED (EDIT) 09/19/2024 [id number] 4 DANTE GOMEZRI 2023 28 [facility] NICOTINE 21MG/24HRS PATCH APPLY 1 PATCH TO SKIN SITE EVERY MORNING FOR TOBACCO CESSATIO N REMOVE OLD PATCH BEFORE APPLYING NEW ONE. ROTATE SITES. DO NOT SMOKE WHILE WEARING PATCH. TRANSD ERMAL DISCONT INUED 05/23/2025 [id number] 4 SHARONA MOFFETT 2023 28 [facility] NICOTINE 21MG/24HRS PATCH APPLY 1 PATCH TO SKIN SITE EVERY MORNING REMOVE OLD PATCH BEFORE APPLYING NEW ONE. ROTATE SITES. DO NOT SMOKE WHILE WEARING PATCH. TRANSD ERMAL 12/12/2024 [id number] 5 SHARONA MOFFETT 2024 14 [facility] NICOTINE 21MG/24HRS PATCH APPLY 1 PATCH TO SKIN SITE EVERY MORNING REMOVE OLD PATCH BEFORE APPLYING NEW ONE. ROTATE SITES. DO NOT SMOKE WHILE WEARING PATCH. TRANSD ERMAL 10/08/2024 [id number] 4 [facility] 2023 28 [facility] NICOTINE 7MG/24HRS PATCH APPLY 1 PATCH TO SKIN SITE EVERY MORNING REMOVE OLD PATCH BEFORE APPLYING NEW ONE. ROTATE SITES. DO NOT SMOKE WHILE WEARING PATCH. TRANSD ERMAL ACTIVE 05/23/2025 [id number] 4 SHARONA MOFFETT 2023 28 [facility] NICOTINE POLACRILEX 2MG TAB,CHEWG GUM CHEW 1 PIECE OF GUM BY MOUTH EVERY 4 HOURS NEEDED CHEW GUM UNTIL TINGLING SENSATIO N, THEN PARK THE GUM BETWEEN CHEEK AND GUM AREA. REPEAT (RE-CHEW ) WHEN TINGLING STOPS. ORAL 12/12/2024 [id number] 5 SHARONA MOFFETT 2024 110 [facility] NICOTINE POLACRILEX 4MG TAB,CHEWG GUM CHEW 1 PIECE OF GUM BY MOUTH EVERY 4 HOURS NEEDED CHEW GUM UNTIL TINGLING SENSATIO N, THEN PARK THE GUM BETWEEN CHEEK AND GUM AREA. REPEAT (RE-CHEW ) WHEN TINGLING STOPS. ORAL DISCONT INUED (EDIT) 09/19/2024 [id number] 4 DANIEL GOMEZ 2023 110 [facility] NICOTINE POLACRILEX 4MG TAB,CHEWG GUM CHEW 1 PIECE OF GUM BY MOUTH EVERY 4 HOURS NEEDED CHEW GUM UNTIL TINGLING SENSATIO N, THEN PARK THE GUM BETWEEN CHEEK AND GUM AREA. REPEAT (RE-CHEW ) WHEN TINGLING STOPS. ORAL 10/08/2024 [id number] 4 [facility] 2023 110 [facility] OLANZAPINE 10MG TAB TAKE ONE-HALF TABLET BY MOUTH AT BEDTIME ORAL DISCONT INUED BY ALEXANDRE R 04/09/2025 [id number] EDU GRIFFIN 2024 45 [facility] OLANZAPINE 10MG TAB TAKE ONE-HALF TABLET BY MOUTH AT BEDTIME ORAL DISCONT INUED 02/09/2025 [id number] 5 SHARONA MOFFETT 2024 30 [facility] OLANZAPINE 10MG TAB TAKE ONE-HALF TABLET BY MOUTH AT BEDTIME ORAL DISCONT INUED (EDIT) 09/29/2024 [id number] 4 BRYAN SHAIKH 2023 5 [facility] OLANZAPINE 10MG TAB TAKE ONE-HALF TABLET BY MOUTH AT BEDTIME FOR DEPRESSI ON ORAL 11/16/2024 [id number] 5 SHARONA MOFFETT 2024 15 [facility] OLANZAPINE 10MG TAB TAKE ONE-HALF TABLET BY MOUTH AT BEDTIME FOR DEPRESSI ON ORAL 10/08/2024 [id number] 4 [facility] [place] 2023 15 [facility] OLANZAPINE 5MG TAB TAKE ONE-HALF TABLET BY MOUTH AT BEDTIME ORAL DISCONT INUED BY PROVIDE R 03/23/2025 [id number] 4 SHARONA MOFFETTESTHA 2023 15 [facility] PRAZOSIN HCL 1MG CAP TAKE ONE CAPSULE BY MOUTH AT BEDTIME FOR NIGHTMAR ES MAY CAUSE DIZZINES S OR DROWSINE SS. ORAL DISCONT INUED (EDIT) 08/21/2025 [id number] 4 DANIEL GOMEZ 2023 7 [facility] PRAZOSIN HCL 2MG CAP TAKE ONE CAPSULE BY MOUTH AT BEDTIME MAY CAUSE DIZZINES S OR DROWSINE SS. ORAL DISCONT INUED BY PROVIDE R 08/24/2025 [id number] 4 JESUSITA TRAN 2023 7 [facility] TRAZODONE HCL 100MG TAB TAKE ONE AND ONE-HALF TABLETS BY MOUTH AT BEDTIME ORAL ACTIVE 03/11/2025 [id number] 5 SHARONA MOFFETT 2024 135 [facility] TRAZODONE HCL 100MG TAB TAKE ONE AND ONE-HALF TABLETS BY MOUTH AT BEDTIME ORAL DISCONT INUED (EDIT) 08/31/2025 [id number] 4 BRYAN SHAIKH S 2023 15 [facility] TRAZODONE HCL 100MG TAB TAKE ONE AND ONE-HALF TABLETS BY MOUTH AT BEDTIME ORAL DISCONT INUED (EDIT) 08/24/2025 [id number] 4 JESUSITA TRAN 2023 11 [facility] TRAZODONE HCL 100MG TAB TAKE ONE-HALF TABLET BY MOUTH AT BEDTIME ORAL DISCONT INUED (EDIT) 08/22/2025 [id number] 4 [facility] [place] 2023 4 [facility] TRAZODONE HCL 100MG TAB TAKE ONE AND ONE-HALF TABLETS BY MOUTH AT BEDTIME FOR INSOMNIA ORAL 11/16/2024 [id number] 5 SHARONA MOFFETT 2024 45 [facility] TRAZODONE HCL 100MG TAB TAKE ONE AND ONE-HALF TABLETS BY MOUTH AT BEDTIME FOR INSOMNIA ORAL 10/08/2024 [id number] 4 [facility] [place] 2023 45 [facility] TRIAMCINOLO NE ACETONIDE 0.1% CREAM,TOP APPLY LIGHTLY TO AFFECTED AREA(S) TWICE A DAY FOR PSORIASI S (EXTERNA L USE ONLY) TOPICA L DISCONT INUED (EDIT) 09/19/2024 [id number] 4 DANIEL GOMEZ 2023 80 [facility] TRIAMCINOLO NE ACETONIDE 0.1% CREAM,TOP APPLY LIGHTLY TO AFFECTED AREA(S) TWICE A DAY FOR PSORIASI S (EXTERNA L USE ONLY) TOPICA L 10/08/2024 [id number] 4 [facility] [place] 2023 80 [facility] TRIAMCINOLO NE OINT,TOP APPLY 0.025 TO AFFECTED AREA(S) ONCE A DAY TOPICA L ACTIVE SHARONA MOFFETT 2023 [facility] Allergies, Adverse Reactions, Alerts Combined [...] PRIM) Drug allergy (disorder) Rash active 5 [place] [facility] [place] , [place] CONCERT[place] Propensity to adverse reactions to drug (finding) Eruption MODERATE active 4 [facility] FLUCONAZOLE Propensity to adverse reactions to drug (finding) Eruption SEVERE active 4 [facility] LAMICTAL Propensity to adverse reactions to drug (finding) Eruption MODERATE active 4 [facility] RISPERDAL Propensity to adverse reactions to drug (finding) Eruption MODERATE active 4 [facility] Immunizations Combined list of available immunizations from the Department of Defense and [facility] facilities. Immunization Series Date Given Administered By Site Reaction Lot Number CVX Code Drug Mammography Supervisor Status Comments Source typhoid Vi capsular polysaccharid e vaccine 1 2007 [id number] [employer] P[employer] (PMC) complet ed typhoid [...] diphtheria toxoid conjugate vaccine (MCV4P) 1 2007 [id number] [employer] Paste[employer] ([employer]MC) complet ed meningoco ccal polysacch aride (groups A, C, Y and W-135) diphtheri a toxoid conjugate vaccine (MCV4P) DoD tetanus toxoid, reduced diphtheria toxoid, and acellular pertu is vaccine, adsorbed 1 2007 [id number] [employer] Paste[employer] (PMC) complet ed tetanus [...] its performance characteris tics confirmed by the [facility] laboratory thru method comparison with reference laboratory and medication chart review. The laboratory is regulated under CLIA as qualified to perform high-comple xity testing. Fentanyl is used for clinical purposes in conjunction with other laboratory tests. Ordering Provider: EDU GOMEZ Report Released Date/Time: Sep 02, 2024 08:27 PM Reporting Lab: [facility] [place] [address] Performing Lab: [facility] [facility] URINE DRUG SCREEN (STL) AMPHETAMIN E [PRESENCE] IN URINE BY SCREEN METHOD Negativ eng/mL 09/03 Specimen Type: URINE Comment: The cut-off value for Fentanyl was laboratory developed and its performance characteris tics confirmed by the [facility] laboratory thru method comparison with reference laboratory and medication chart review. The laboratory is regulated under CLIA as qualified to perform high-comple xity testing. Fentanyl is used for clinical purposes in conjunction with other laboratory tests. Ordering Provider: EDU GOMEZ Report Released Date/Time: Sep 02, 2024 08:27 PM Reporting Lab: [facility] [place] [address] Performing Lab: [facility] [address] DIV[facility] URINE DRUG SCREEN (STL) BENZOYLECG ONINE [PRESENCE] IN URINE Negativ eng/mL 09/03 Specimen Type: URINE Comment: The cut-off value for Fentanyl was laboratory developed and its performance characteris tics confirmed by the [facility] laboratory thru method comparison with reference laboratory and medication chart review. The laboratory is regulated under CLIA as qualified to perform high-comple xity testing. Fentanyl is used for clinical purposes in conjunction with other laboratory tests. Ordering Provider: EDU GOMEZ Report Released Date/Time: Sep 02, 2024 08:27 PM Reporting Lab: [facility] [place] [address] Performing Lab: [facility] URINE DRUG SCREEN (STL) BENZODIAZE PINES [PRESENCE] IN URINE BY SCREEN METHOD Negativ eng/mL 09/03 Specimen Type: URINE Comment: The cut-off value for Fentanyl was laboratory developed and its performance characteris tics confirmed by the [facility] laboratory thru method comparison with reference laboratory and medication chart review. The laboratory is regulated under CLIA as qualified to perform high-comple xity testing. Fentanyl is used for clinical purposes in conjunction with other laboratory tests. Ordering Provider: EDU GOMEZ Report Released Date/Time: Sep 02, 2024 08:27 PM Reporting Lab: [facility] [place] [address] Performing Lab: [facility] URINE DRUG SCREEN (STL) CANNABINOI DS [PRESENCE] IN URINE BY SCREEN METHOD POSITIV Eng/mL 09/03 Specimen Type: URINE Comment: The cut-off value for Fentanyl was laboratory developed and its performance characteris tics confirmed by the [facility] laboratory thru method comparison with reference laboratory and medication chart review. The laboratory is regulated under CLIA as qualified to perform high-comple xity testing. Fentanyl is used for clinical purposes in conjunction with other laboratory tests. Ordering Provider: EDU GOMEZ Report Released Date/Time: Sep 02, 2024 08:27 PM Reporting Lab: [facility] [place] [address] Performing Lab: [facility]1 [facility] [address] [facility] URINE DRUG SCREEN (STL) METHADONE [PRESENCE] IN URINE Negativ eng/mL 09/03 Specimen Type: URINE Comment: The cut-off value for Fentanyl was laboratory developed and its performance characteris tics confirmed by the [facility] laboratory thru method comparison with reference laboratory and medication chart review. The laboratory is regulated under CLIA as qualified to perform high-comple xity testing. Fentanyl is used for clinical purposes in conjunction with other laboratory tests. Ordering Provider: EDU GOMEZ Report Released Date/Time: Sep 02, 2024 08:27 PM Reporting Lab: [facility]1 [facility] [address] Performing Lab: [facility] #1 [facility] [id number] [place] [address] URINE DRUG SCREEN (STL) OPIATES [PRESENCE] IN URINE BY SCREEN METHOD Negativ eng/mL 09/03 Specimen Type: URINE Comment: The cut-off value for Fentanyl was laboratory developed and its performance characteris tics confirmed by the [facility] laboratory thru method comparison with reference laboratory and medication chart review. The laboratory is regulated under CLIA as qualified to perform high-comple xity testing. Fentanyl is used for clinical purposes in conjunction with other laboratory tests. Ordering Provider: EDU GOMEZ Report Released Date/Time: Sep 02, 2024 08:27 PM Reporting Lab: [facility]1 [facility] [address] Performing Lab: [facility] #1 [facility] [id number] [place] [address] URINE DRUG SCREEN (STL) CREATININE [MASS/VOLU ME] IN URINE 110.1 mg/dL 47.0 - 110.0 09/03 H Specimen Type: URINE Comment: The cut-off value for Fentanyl was laboratory developed and its performance characteris tics confirmed by the [facility] laboratory thru method comparison with reference laboratory and medication chart review. The laboratory is regulated under CLIA as qualified to perform high-comple xity testing. Fentanyl is used for clinical purposes in conjunction with other laboratory tests. Ordering Provider: EDU GOMEZ Report Released Date/Time: Sep 02, 2024 08:27 PM Reporting Lab: [facility] [place] [address] Performing Lab: [facility] URINE DRUG SCREEN (STL) OXYCODONE CUTOFF [MASS/VOLU ME] IN URINE FOR SCREEN METHOD Negativ eng/mL 09/03 Specimen Type: URINE Comment: The cut-off value for Fentanyl was laboratory developed and its performance characteris tics confirmed by the [facility] laboratory thru method comparison with reference laboratory and medication chart review. The laboratory is regulated under CLIA as qualified to perform high-comple xity testing. Fentanyl is used for clinical purposes in conjunction with other laboratory tests. Ordering Provider: EDU GOMEZ Report Released Date/Time: Sep 02, 2024 08:27 PM Reporting Lab: [facility] [place] [address] Performing Lab: [facility] DIVISION URINE DRUG SCREEN (STL) BUPRENORPH INE [PRESENCE] IN URINE Negativ eng/mL 09/03 Specimen Type: URINE Comment: The cut-off value for Fentanyl was laboratory developed and its performance characteris tics confirmed by the [facility] laboratory thru method comparison with reference laboratory and medication chart review. The laboratory is regulated under CLIA as qualified to perform high-comple xity testing. Fentanyl is used for clinical purposes in conjunction with other laboratory tests. Ordering Provider: EDU GOMEZ Report Released Date/Time: Sep 02, 2024 08:27 PM Reporting Lab: [facility] [place] [address] Performing Lab: [facility] [facility] URINE DRUG SCREEN (STL) FENTANYL [PRESENCE] IN URINE Negativ eng/mL 09/03 Specimen Type: URINE Comment: The cut-off value for Fentanyl was laboratory developed and its performance characteris tics confirmed by the [facility] laboratory thru method comparison with reference laboratory and medication chart review. The laboratory is regulated under CLIA as qualified to perform high-comple xity testing. Fentanyl is used for clinical purposes in conjunction with other laboratory tests. Ordering Provider: EDU GOMEZ Report Released Date/Time: Sep 02, 2024 08:27 PM Reporting Lab: [facility]1 [place] [phone] Performing Lab: [facility] #1 [place] [id number] [place] [address] URINE DRUG SCREEN (STL) ETHANOL [MASS/VOLU ME] IN URINE Negativ emg/dL 0 - 20 08/25 Specimen Type: URINE Comment: The cut-off value for Fentanyl was laboratory developed and its performance characteris tics confirmed by the [facility] laboratory thru method comparison with reference laboratory and medication chart review. The laboratory is regulated under CLIA as qualified to perform high-comple xity testing. Fentanyl is used for clinical purposes in conjunction with other laboratory tests. Ordering Provider: EDU GOMEZ Report Released Date/Time: Aug 24, 2024 07:24 PM Reporting Lab: [address] [address] Performing Lab: [address] [address] [facility] URINE DRUG SCREEN (STL) AMPHETAMIN E [PRESENCE] IN URINE BY SCREEN METHOD Negativ eng/mL 08/25 Specimen Type: URINE Comment: The cut-off value for Fentanyl was laboratory developed and its performance characteris tics confirmed by the [facility] laboratory thru method comparison with reference laboratory and medication chart review. The laboratory is regulated under CLIA as qualified to perform high-comple xity testing. Fentanyl is used for clinical purposes in conjunction with other laboratory tests. Ordering Provider: EDU GOMEZ Report Released Date/Time: Aug 24, 2024 07:24 PM Reporting Lab: [facility] [address] [facility] [phone] Performing Lab: [facility] [address] [facility] [address] [facility] URINE DRUG SCREEN (STL) BENZOYLECG ONINE [PRESENCE] IN URINE Negativ eng/mL 08/25 Specimen Type: URINE Comment: The cut-off value for Fentanyl was laboratory developed and its performance characteris tics confirmed by the [facility] laboratory thru method comparison with reference laboratory and medication chart review. The laboratory is regulated under CLIA as qualified to perform high-comple xity testing. Fentanyl is used for clinical purposes in conjunction with other laboratory tests. Ordering Provider: EDU GOMEZ Report Released Date/Time: Aug 24, 2024 07:24 PM Reporting Lab: [facility] [address] [facility] [address] Performing Lab: [facility] [address] [facility] [address] [facility] URINE DRUG SCREEN (STL) BENZODIAZE PINES [PRESENCE] IN URINE BY SCREEN METHOD Negativ eng/mL 08/25 Specimen Type: URINE Comment: The cut-off value for Fentanyl was laboratory developed and its performance characteris tics confirmed by the [facility] laboratory thru method comparison with reference laboratory and medication chart review. The laboratory is regulated under CLIA as qualified to perform high-comple xity testing. Fentanyl is used for clinical purposes in conjunction with other laboratory tests. Ordering Provider: EDU GOMEZ Report Released Date/Time: Aug 24, 2024 07:24 PM Reporting Lab: [place] [address] [facility] [address] Performing Lab: [facility] [address] [facility] [address] [facility] URINE DRUG SCREEN (STL) CANNABINOI DS [PRESENCE] IN URINE BY SCREEN METHOD POSITIV Eng/mL 08/25 Specimen Type: URINE Comment: The cut-off value for Fentanyl was laboratory developed and its performance characteris tics confirmed by the [facility] laboratory thru method comparison with reference laboratory and medication chart review. The laboratory is regulated under CLIA as qualified to perform high-comple xity testing. Fentanyl is used for clinical purposes in conjunction with other laboratory tests. Ordering Provider: EDU GOMEZ Report Released Date/Time: Aug 24, 2024 07:24 PM Reporting Lab: [facility] [address] [facility] [address] Performing Lab: [facility] [address] [facility] [address] [facility] URINE DRUG SCREEN (STL) METHADONE [PRESENCE] IN URINE Negativ eng/mL 08/25 Specimen Type: URINE Comment: The cut-off value for Fentanyl was laboratory developed and its performance characteris tics confirmed by the [facility] laboratory thru method comparison with reference laboratory and medication chart review. The laboratory is regulated under CLIA as qualified to perform high-comple xity testing. Fentanyl is used for clinical purposes in conjunction with other laboratory tests. Ordering Provider: EDU GOMEZ Report Released Date/Time: Aug 24, 2024 07:24 PM Reporting Lab: [facility] [address] [facility] [address] Performing Lab: [place] [address] [facility] [address] [facility] URINE DRUG SCREEN (STL) OPIATES [PRESENCE] IN URINE BY SCREEN METHOD Negativ eng/mL 08/25 Specimen Type: URINE Comment: The cut-off value for Fentanyl was laboratory developed and its performance characteris tics confirmed by the [facility] laboratory thru method comparison with reference laboratory and medication chart review. The laboratory is regulated under CLIA as qualified to perform high-comple xity testing. Fentanyl is used for clinical purposes in conjunction with other laboratory tests. Ordering Provider: EDU GOMEZ Report Released Date/Time: Aug 24, 2024 07:24 PM Reporting Lab: [facility] [address] [facility] [address] Performing Lab: [facility] [address] [place] [phone] [facility] URINE DRUG SCREEN (STL) CREATININE [MASS/VOLU ME] IN URINE 39.0 mg/dL 47 - 110 08/25 L Specimen Type: URINE Comment: The cut-off value for Fentanyl was laboratory developed and its performance characteris tics confirmed by the [facility] laboratory thru method comparison with reference laboratory and medication chart review. The laboratory is regulated under CLIA as qualified to perform high-comple xity testing. Fentanyl is used for clinical purposes in conjunction with other laboratory tests. Ordering Provider: EDU GOMEZ Report Released Date/Time: Aug 24, 2024 07:24 PM Reporting Lab: [address] [address] Performing Lab: [address] [address] [facility] URINE DRUG SCREEN (STL) OXYCODONE CUTOFF [MASS/VOLU ME] IN URINE FOR SCREEN METHOD Negativ eng/mL 08/25 Specimen Type: URINE Comment: The cut-off value for Fentanyl was laboratory developed and its performance characteris tics confirmed by the [facility] laboratory thru method comparison with reference laboratory and medication chart review. The laboratory is regulated under CLIA as qualified to perform high-comple xity testing. Fentanyl is used for clinical purposes in conjunction with other laboratory tests. Ordering Provider: EDU GOMEZ Report Released Date/Time: Aug 24, 2024 07:24 PM Reporting Lab: [address] [address] Performing Lab: [address] [address] [facility] URINE DRUG SCREEN (STL) BUPRENORPH INE [PRESENCE] IN URINE Negativ eng/mL 08/25 Specimen Type: URINE Comment: The cut-off value for Fentanyl was laboratory developed and its performance characteris tics confirmed by the [facility] laboratory thru method comparison with reference laboratory and medication chart review. The laboratory is regulated under CLIA as qualified to perform high-comple xity testing. Fentanyl is used for clinical purposes in conjunction with other laboratory tests. Ordering Provider: EDU GOMEZ Report Released Date/Time: Aug 24, 2024 07:24 PM Reporting Lab: [facility] [address] [facility] [address] Performing Lab: [address] [address] [facility] URINE DRUG SCREEN (STL) FENTANYL [PRESENCE] IN URINE Negativ eng/mL 08/25 Specimen Type: URINE Comment: The cut-off value for Fentanyl was laboratory developed and its performance characteris tics confirmed by the [facility] laboratory thru method comparison with reference laboratory and medication chart review. The laboratory is regulated under CLIA as qualified to perform high-comple xity testing. Fentanyl is used for clinical purposes in conjunction with other laboratory tests. Ordering Provider: EDU GOMEZ Report Released Date/Time: Aug 24, 2024 07:24 PM Reporting Lab: [facility] [address] [place] [phone] Performing Lab: [facility] [address] [place] [phone] [facility] URINALYSI S W/ CX REFLEX (STL-PB) COLOR OF URINE Yellow 08/20 Specimen Type: URINE No comment entered. Ordering Provider: EDU GOMEZ Report Released Date/Time: Aug 19, 2024 11:04 AM Reporting Lab: [facility]1 [facility] [address] Performing Lab: [facility] #1 [facility] [phone] [place] [address] DIVISION URINALYSI S W/ CX REFLEX (STL-PB) BILIRUBIN. TOTAL [PRESENCE] IN URINE BY TEST STRIP Negativ emg/dL 08/20 Specimen Type: URINE No comment entered. Ordering Provider: EDU GOMEZ Report Released Date/Time: Aug 19, 2024 11:04 AM Reporting Lab: [facility]1 [place] [address] Performing Lab: [facility] DIVISION URINALYSI S W/ CX REFLEX (STL-PB) PH OF URINE BY TEST STRIP 6.0 5.0 - 8.0 08/20 Specimen Type: URINE No comment entered. Ordering Provider: EDU GOMEZ Report Released Date/Time: Aug 19, 2024 11:04 AM Reporting Lab: [facility]1 [place] [address] Performing Lab: [facility] DIVISION URINALYSI S W/ CX REFLEX (STL-PB) LEUKOCYTES [#/AREA] IN URINE SEDIMENT BY MICROSCOPY HIGH POWER FIELD 3 /[HPF] 0 - 5 08/20 Specimen Type: URINE No comment entered. Ordering Provider: EDU GOMEZ Report Released Date/Time: Aug 19, 2024 11:04 AM Reporting Lab: [facility]1 [place] [address] Performing Lab: [facility] DIVISION URINALYSI S W/ CX REFLEX (STL-PB) ERYTHROCYT ES [#/VOLUME] IN URINE SEDIMENT BY MICROSCOPY HIGH POWER FIELD 3 /[HPF] 0 - 5 08/20 Specimen Type: URINE No comment entered. Ordering Provider: EDU GOMEZ Report Released Date/Time: Aug 19, 2024 11:04 AM Reporting Lab: [facility]1 [place] [address] Performing Lab: [facility] URINALYSI S W/ CX REFLEX (STL-PB) APPEARANCE OF URINE Clear 08/20 Specimen Type: URINE No comment entered. Ordering Provider: EDU GOMEZ Report Released Date/Time: Aug 19, 2024 11:04 AM Reporting Lab: [facility]1 [place] [address] Performing Lab: [facility] URINALYSI S W/ CX REFLEX (STL-PB) NITRITE [PRESENCE] IN URINE BY TEST STRIP Negativ emg/dL 08/20 Specimen Type: URINE No comment entered. Ordering Provider: EDU OGMEZ Report Released Date/Time: Aug 19, 2024 11:04 AM Reporting Lab: [facility]1 [place] [address] Performing Lab: [facility] URINALYSI S W/ CX REFLEX (STL-PB) EPITHELIAL CELLS [#/AREA] IN URINE SEDIMENT BY MICROSCOPY LOW POWER FIELD 9 /[HPF] 0 - 5 08/20 Specimen Type: URINE No comment entered. Ordering Provider: EDU GOMEZ Report Released Date/Time: Aug 19, 2024 11:04 AM Reporting Lab: [facility] [place] [address] Performing Lab: [facility] URINALYSI S W/ CX REFLEX (STL-PB) MUCUS [PRESENCE] IN URINE SEDIMENT BY LIGHT MICROSCOPY FEW/[LP F] 08/20 Specimen Type: URINE No comment entered. Ordering Provider: EDU GOMEZ Report Released Date/Time: Aug 19, 2024 11:04 AM Reporting Lab: [facility] [place] [address] Performing Lab: [facility] DIVISION URINALYSI S W/ CX REFLEX (STL-PB) GLUCOSE [MASS/VOLU ME] IN URINE BY TEST STRIP Normalm g/dL 08/20 Specimen Type: URINE No comment entered. Ordering Provider: EDU GOMEZ Report Released Date/Time: Aug 19, 2024 11:04 AM Reporting Lab: [facility] [place] [address] Performing Lab: [facility] DIVISION URINALYSI S W/ CX REFLEX (STL-PB) PROTEIN [MASS/VOLU ME] IN URINE BY TEST STRIP 20 mg/dL 08/20 H Specimen Type: URINE No comment entered. Ordering Provider: EDU GOMEZ Report Released Date/Time: Aug 19, 2024 11:04 AM Reporting Lab: [facility] [place] [address] Performing Lab: [facility] DIVISION URINALYSI S W/ CX REFLEX (STL-PB) URN.UROBIL INOGEN Normalm g/dL 08/20 Specimen Type: URINE No comment entered. Ordering Provider: EDU GOMEZ Report Released Date/Time: Aug 19, 2024 11:04 AM Reporting Lab: [facility]1 [place] [address] Performing Lab: [facility] DIVISION URINALYSI S W/ CX REFLEX (STL-PB) HEMOGLOBIN [MASS/VOLU ME] IN URINE BY TEST STRIP Negativ emg/dL 08/20 Specimen Type: URINE No comment entered. Ordering Provider: EDU GOMEZ Report Released Date/Time: Aug 19, 2024 11:04 AM Reporting Lab: [facility]1 [place] [address] Performing Lab: [facility] DIVISION URINALYSI S W/ CX REFLEX (STL-PB) KETONES [MASS/VOLU ME] IN URINE BY TEST STRIP Negativ emg/dL 08/20 Specimen Type: URINE No comment entered. Ordering Provider: EDU GOMEZ Report Released Date/Time: Aug 19, 2024 11:04 AM Reporting Lab: [facility]1 [place] [address] Performing Lab: [facility] DIVISION URINALYSI S W/ CX REFLEX (STL-PB) URN.LEUK.E ST. 75 mg/dL 08/20 H Specimen Type: URINE No comment entered. Ordering Provider: EDU GOMEZ Report Released Date/Time: Aug 19, 2024 11:04 AM Reporting Lab: [facility]1 [place] [address] Performing Lab: [facility] DIVISION URINALYSI S W/ CX REFLEX (STL-PB) SPECIFIC GRAVITY OF URINE 1.028 08/20 Specimen Type: URINE No comment entered. Ordering Provider: EDU GOMEZ Report Released Date/Time: Aug 19, 2024 11:04 AM Reporting Lab: [facility]1 [place] [address] Performing Lab: [facility] DIVISION TEST URINE (MA-STL) CHORIOGONA DOTROPIN ( TEST) [PRESENCE] IN URINE NEG 08/19 Specimen Type: URINE No comment entered. Ordering Provider: EDU GOMEZ Report Released Date/Time: Aug 16, 2024 03:45 PM Reporting Lab: [facility]1 [place] [address] Performing Lab: [facility] #[address] DIVISION URINALYSI S (STL-PB) COLOR OF URINE Yellow 08/19 Specimen Type: URINE No comment entered. Ordering Provider: EDU GOMEZ Report Released Date/Time: Aug 16, 2024 03:45 PM Reporting Lab: [facility]1 [place] [address] Performing Lab: [facility] DIVISION URINALYSI S (STL-PB) BILIRUBIN. TOTAL [PRESENCE] IN URINE BY TEST STRIP Negativ emg/dL 08/19 Specimen Type: URINE No comment entered. Ordering Provider: EDU GOMEZ Report Released Date/Time: Aug 16, 2024 03:45 PM Reporting Lab: [facility]1 [place] [address] Performing Lab: [facility] #[address] DIVISION URINALYSI S (STL-PB) PH OF URINE BY TEST STRIP 6.0 5.0 - 8.0 08/19 Specimen Type: URINE No comment entered. Ordering Provider: EDU GOMEZ Report Released Date/Time: Aug 16, 2024 03:45 PM Reporting Lab: [facility]1 [place] [address] Performing Lab: [facility] #[address] DIVISION URINALYSI S (STL-PB) LEUKOCYTES [#/AREA] IN URINE SEDIMENT BY MICROSCOPY HIGH POWER FIELD 14 /[HPF] 0 - 5 08/19 H Specimen Type: URINE No comment entered. Ordering Provider: EDU GOMEZ Report Released Date/Time: Aug 16, 2024 03:45 PM Reporting Lab: [facility]1 [place] [address] Performing Lab: [facility] URINALYSI S (STL-PB) ERYTHROCYT ES [#/VOLUME] IN URINE SEDIMENT BY MICROSCOPY HIGH POWER FIELD 5 /[HPF] 0 - 5 08/19 Specimen Type: URINE No comment entered. Ordering Provider: EDU GOMEZ Report Released Date/Time: Aug 16, 2024 03:45 PM Reporting Lab: [facility]1 [place] [address] Performing Lab: [facility] DIVISION URINALYSI S (STL-PB) APPEARANCE OF URINE Turbid 08/19 Specimen Type: URINE No comment entered. Ordering Provider: EDU GOMEZ Report Released Date/Time: Aug 16, 2024 03:45 PM Reporting Lab: [facility]1 [place] [address] Performing Lab: [facility] DIVISION URINALYSI S (STL-PB) NITRITE [PRESENCE] IN URINE BY TEST STRIP Negativ emg/dL 08/19 Specimen Type: URINE No comment entered. Ordering Provider: EDU GOMEZ Report Released Date/Time: Aug 16, 2024 03:45 PM Reporting Lab: [facility] [place] [address] Performing Lab: [facility] DIVISION URINALYSI S (STL-PB) EPITHELIAL CELLS [#/AREA] IN URINE SEDIMENT BY MICROSCOPY LOW POWER FIELD 9 /[HPF] 0 - 5 08/19 Specimen Type: URINE No comment entered. Ordering Provider: EDU GOMEZ Report Released Date/Time: Aug 16, 2024 03:45 PM Reporting Lab: [facility] [place] [address] Performing Lab: [facility] DIVISION URINALYSI S (STL-PB) MUCUS [PRESENCE] IN URINE SEDIMENT BY LIGHT MICROSCOPY MOD/[LP F] 08/19 Specimen Type: URINE No comment entered. Ordering Provider: EDU GOMEZ Report Released Date/Time: Aug 16, 2024 03:45 PM Reporting Lab: [facility] [place] [address] Performing Lab: [facility] DIVISION URINALYSI S (STL-PB) GLUCOSE [MASS/VOLU ME] IN URINE BY TEST STRIP Normalm g/dL 08/19 Specimen Type: URINE No comment entered. Ordering Provider: EDU GOMEZ Report Released Date/Time: Aug 16, 2024 03:45 PM Reporting Lab: [facility] [place] [address] Performing Lab: [facility] DIVISION URINALYSI S (STL-PB) PROTEIN [MASS/VOLU ME] IN URINE BY TEST STRIP 30 mg/dL 08/19 H Specimen Type: URINE No comment entered. Ordering Provider: EDU GOMEZ Report Released Date/Time: Aug 16, 2024 03:45 PM Reporting Lab: [facility] [place] [address] Performing Lab: [facility] DIVISION URINALYSI S (STL-PB) URN.UROBIL INOGEN 2 mg/dL 08/19 H Specimen Type: URINE No comment entered. Ordering Provider: EDU GOMEZ Report Released Date/Time: Aug 16, 2024 03:45 PM Reporting Lab: [facility] [place] [address] Performing Lab: [facility] DIVISION URINALYSI S (STL-PB) HEMOGLOBIN [MASS/VOLU ME] IN URINE BY TEST STRIP Negativ emg/dL 08/19 Specimen Type: URINE No comment entered. Ordering Provider: EDU GOMEZ Report Released Date/Time: Aug 16, 2024 03:45 PM Reporting Lab: [facility] [place] [address] Performing Lab: [facility] DIVISION URINALYSI S (STL-PB) KETONES [MASS/VOLU ME] IN URINE BY TEST STRIP Tracemg /dL 08/19 Specimen Type: URINE No comment entered. Ordering Provider: DEU GOMEZ Report Released Date/Time: Aug 16, 2024 03:45 PM Reporting Lab: [facility] [place] [address] Performing Lab: [facility] DIVISION URINALYSI S (STL-PB) URN.LEUK.E ST. 500 mg/dL 08/19 H Specimen Type: URINE No comment entered. Ordering Provider: EDU GOMEZ Report Released Date/Time: Aug 16, 2024 03:45 PM Reporting Lab: [facility] [place] [address] Performing Lab: [facility] DIVISION URINALYSI S (STL-PB) SPECIFIC GRAVITY OF URINE 1.035 08/19 H Specimen Type: URINE No comment entered. Ordering Provider: EDU GOMEZ Report Released Date/Time: Aug 16, 2024 03:45 PM Reporting Lab: [facility] [place] [address] Performing Lab: [facility] URINE DRUG SCREEN (STL) ETHANOL [MASS/VOLU ME] IN URINE Negativ emg/dL 0 - 20 08/19 Specimen Type: URINE Comment: The cut-off value for Fentanyl was laboratory developed and its performance characteris tics confirmed by the [facility] laboratory thru method comparison with reference laboratory and medication chart review. The laboratory is regulated under CLIA as qualified to perform high-comple xity testing. Fentanyl is used for clinical purposes in conjunction with other laboratory tests. Ordering Provider: EDU GOMEZ Report Released Date/Time: Aug 16, 2024 03:45 PM Reporting Lab: [facility] [place] [address] Performing Lab: [facility] URINE DRUG SCREEN (STL) AMPHETAMIN E [PRESENCE] IN URINE BY SCREEN METHOD Negativ eng/mL 08/19 Specimen Type: URINE Comment: The cut-off value for Fentanyl was laboratory developed and its performance characteris tics confirmed by the [facility] laboratory thru method comparison with reference laboratory and medication chart review. The laboratory is regulated under CLIA as qualified to perform high-comple xity testing. Fentanyl is used for clinical purposes in conjunction with other laboratory tests. Ordering Provider: EDU GOMEZ Report Released Date/Time: Aug 16, 2024 03:45 PM Reporting Lab: [facility]1 [facility] [id number] Performing Lab: [facility]1 [place] [id number] [place] [address] URINE DRUG SCREEN (STL) BENZOYLECG ONINE [PRESENCE] IN URINE Negativ eng/mL 08/19 Specimen Type: URINE Comment: The cut-off value for Fentanyl was laboratory developed and its performance characteris tics confirmed by the [facility] laboratory thru method comparison with reference laboratory and medication chart review. The laboratory is regulated under CLIA as qualified to perform high-comple xity testing. Fentanyl is used for clinical purposes in conjunction with other laboratory tests. Ordering Provider: EDU GOMEZ Report Released Date/Time: Aug 16, 2024 03:45 PM Reporting Lab: [facility] [place] [address] Performing Lab: [facility] URINE DRUG SCREEN (STL) BENZODIAZE PINES [PRESENCE] IN URINE BY SCREEN METHOD Negativ eng/mL 08/19 Specimen Type: URINE Comment: The cut-off value for Fentanyl was laboratory developed and its performance characteris tics confirmed by the [facility] laboratory thru method comparison with reference laboratory and medication chart review. The laboratory is regulated under CLIA as qualified to perform high-comple xity testing. Fentanyl is used for clinical purposes in conjunction with other laboratory tests. Ordering Provider: EDU GOMEZ Report Released Date/Time: Aug 16, 2024 03:45 PM Reporting Lab: [facility]1 [facility] [address] Performing Lab: [facility]1 [place] [id number] [place] [address] URINE DRUG SCREEN (STL) CANNABINOI DS [PRESENCE] IN URINE BY SCREEN METHOD POSITIV Eng/mL 08/19 Specimen Type: URINE Comment: The cut-off value for Fentanyl was laboratory developed and its performance characteris tics confirmed by the [facility] laboratory thru method comparison with reference laboratory and medication chart review. The laboratory is regulated under CLIA as qualified to perform high-comple xity testing. Fentanyl is used for clinical purposes in conjunction with other laboratory tests. Ordering Provider: EDU GOMEZ Report Released Date/Time: Aug 16, 2024 03:45 PM Reporting Lab: [facility] [place] [address] Performing Lab: [facility] [address] URINE DRUG SCREEN (STL) METHADONE [PRESENCE] IN URINE Negativ eng/mL 08/19 Specimen Type: URINE Comment: The cut-off value for Fentanyl was laboratory developed and its performance characteris tics confirmed by the [facility] laboratory thru method comparison with reference laboratory and medication chart review. The laboratory is regulated under CLIA as qualified to perform high-comple xity testing. Fentanyl is used for clinical purposes in conjunction with other laboratory tests. Ordering Provider: EDU GOMEZ Report Released Date/Time: Aug 16, 2024 03:45 PM Reporting Lab: [facility] [place] [address] Performing Lab: [facility] #[address] URINE DRUG SCREEN (STL) OPIATES [PRESENCE] IN URINE BY SCREEN METHOD POSITIV Eng/mL 08/19 Specimen Type: URINE Comment: The cut-off value for Fentanyl was laboratory developed and its performance characteris tics confirmed by the [facility] laboratory thru method comparison with reference laboratory and medication chart review. The laboratory is regulated under CLIA as qualified to perform high-comple xity testing. Fentanyl is used for clinical purposes in conjunction with other laboratory tests. Ordering Provider: EDU GOMEZ Report Released Date/Time: Aug 16, 2024 03:45 PM Reporting Lab: [facility] [place] [address] Performing Lab: [facility] #[address] URINE DRUG SCREEN (STL) CREATININE [MASS/VOLU ME] IN URINE 266.1 mg/dL 47.0 - 110.0 08/19 H Specimen Type: URINE Comment: The cut-off value for Fentanyl was laboratory developed and its performance characteris tics confirmed by the [facility] laboratory thru method comparison with reference laboratory and medication chart review. The laboratory is regulated under CLIA as qualified to perform high-comple xity testing. Fentanyl is used for clinical purposes in conjunction with other laboratory tests. Ordering Provider: EDU GOMEZ Report Released Date/Time: Aug 16, 2024 03:45 PM Reporting Lab: [facility] [place] [address] Performing Lab: [facility] #[address] URINE DRUG SCREEN (STL) OXYCODONE CUTOFF [MASS/VOLU ME] IN URINE FOR SCREEN METHOD Negativ eng/mL 08/19 Specimen Type: URINE Comment: The cut-off value for Fentanyl was laboratory developed and its performance characteris tics confirmed by the [facility] laboratory thru method comparison with reference laboratory and medication chart review. The laboratory is regulated under CLIA as qualified to perform high-comple xity testing. Fentanyl is used for clinical purposes in conjunction with other laboratory tests. Ordering Provider: EDU GOMEZ Report Released Date/Time: Aug 16, 2024 03:45 PM Reporting Lab: [facility] [place] [address] Performing Lab: [facility] #[address] URINE DRUG SCREEN (STL) BUPRENORPH INE [PRESENCE] IN URINE Negativ eng/mL 08/19 Specimen Type: URINE Comment: The cut-off value for Fentanyl was laboratory developed and its performance characteris tics confirmed by the [facility] laboratory thru method comparison with reference laboratory and medication chart review. The laboratory is regulated under CLIA as qualified to perform high-comple xity testing. Fentanyl is used for clinical purposes in conjunction with other laboratory tests. Ordering Provider: EDU GOMEZ Report Released Date/Time: Aug 16, 2024 03:45 PM Reporting Lab: [facility] [place] [address] Performing Lab: [facility] URINE DRUG SCREEN (STL) FENTANYL [PRESENCE] IN URINE Negativ eng/mL 08/19 Specimen Type: URINE Comment: The cut-off value for Fentanyl was laboratory developed and its performance characteris tics confirmed by the [facility] laboratory thru method comparison with reference laboratory and medication chart review. The laboratory is regulated under CLIA as qualified to perform high-comple xity testing. Fentanyl is used for clinical purposes in conjunction with other laboratory tests. Ordering Provider: EDU GOMEZ Report Released Date/Time: Aug 16, 2024 03:45 PM Reporting Lab: [facility] [place] [address] Performing Lab: [facility] CBC LEUKOCYTES [#/VOLUME] IN BLOOD BY AUTOMATED COUNT 12.7 10*3/uL 3.6 - 11.2 08/19 H Specimen Type: BLOOD No comment entered. Ordering Provider: EDU GOMEZ Report Released Date/Time: Aug 16, 2024 03:45 PM Reporting Lab: [facility] [place] [address] Performing Lab: [facility] CBC ERYTHROCYT ES [#/VOLUME] IN BLOOD BY AUTOMATED COUNT 4.19 10*6/uL 3.60 - 5.00 08/19 Specimen Type: BLOOD No comment entered. Ordering Provider: EDU GOMEZ Report Released Date/Time: Aug 16, 2024 03:45 PM Reporting Lab: [facility] [place] [address] Performing Lab: [facility] CBC HEMOGLOBIN [MASS/VOLU ME] IN BLOOD 12.7 g/dL 11.0 - 14.9 08/19 Specimen Type: BLOOD No comment entered. Ordering Provider: EDU GOMEZ Report Released Date/Time: Aug 16, 2024 03:45 PM Reporting Lab: [facility] [place] [address] Performing Lab: [facility] DIVISION CBC HEMATOCRIT [VOLUME FRACTION] OF BLOOD 37.7 32.6 - 43.4 08/19 Specimen Type: BLOOD No comment entered. Ordering Provider: EDU GOMEZ Report Released Date/Time: Aug 16, 2024 03:45 PM Reporting Lab: [facility] [place] [address] Performing Lab: [facility] CBC MCV [ENTITIC VOLUME] BY AUTOMATED COUNT 90.0 fL 80.0 - 100.0 08/19 Specimen Type: BLOOD No comment entered. Ordering Provider: EDU GOMEZ Report Released Date/Time: Aug 16, 2024 03:45 PM Reporting Lab: [facility] [place] [address] Performing Lab: [facility] CBC MCH [ENTITIC MASS] BY AUTOMATED COUNT 30.3 pg 27.0 - 34.0 08/19 Specimen Type: BLOOD No comment entered. Ordering Provider: EDU GOMEZ Report Released Date/Time: Aug 16, 2024 03:45 PM Reporting Lab: [facility] [place] [address] Performing Lab: [facility] DIVISION CBC MCHC [MASS/VOLU ME] BY AUTOMATED COUNT 33.7 g/dL 33.0 - 36.0 08/19 Specimen Type: BLOOD No comment entered. Ordering Provider: EDU GOMEZ Report Released Date/Time: Aug 16, 2024 03:45 PM Reporting Lab: [facility] [place] [address] Performing Lab: [facility] DIVISION CBC PLATELETS [#/VOLUME] IN BLOOD BY AUTOMATED COUNT 418 10*3/uL 150 - 400 08/19 H Specimen Type: BLOOD No comment entered. Ordering Provider: EDU GOMEZ Report Released Date/Time: Aug 16, 2024 03:45 PM Reporting Lab: [facility] [place] [address] Performing Lab: [facility] DIVISION CBC PLATELET MEAN VOLUME [ENTITIC VOLUME] IN BLOOD BY AUTOMATED COUNT 10.2 fL 7.5 - 11.2 08/19 Specimen Type: BLOOD No comment entered. Ordering Provider: EDU GOMEZ Report Released Date/Time: Aug 16, 2024 03:45 PM Reporting Lab: [facility] [place] [address] Performing Lab: [facility] DIVISION CBC ERYTHROCYT E DISTRIBUTI ON WIDTH [RATIO] BY AUTOMATED COUNT 12.0 11.8 - 15.1 08/19 Specimen Type: BLOOD No comment entered. Ordering Provider: EDU GOMEZ Report Released Date/Time: Aug 16, 2024 03:45 PM Reporting Lab: [facility] [place] [address] Performing Lab: [facility] DIVISION CBC LYMPHOCYTE S/100 LEUKOCYTES IN BLOOD BY AUTOMATED COUNT 21 08/19 Specimen Type: BLOOD No comment entered. Ordering Provider: EDU GOMEZ Report Released Date/Time: Aug 16, 2024 03:45 PM Reporting Lab: [facility] [place] [address] Performing Lab: [facility] DIVISION CBC MONOCYTES/ 100 LEUKOCYTES IN BLOOD BY AUTOMATED COUNT 7 08/19 Specimen Type: BLOOD No comment entered. Ordering Provider: EDU GOMEZ Report Released Date/Time: Aug 16, 2024 03:45 PM Reporting Lab: [facility] [place] [address] Performing Lab: [facility] DIVISION CBC NEUTROPHIL S/100 LEUKOCYTES IN BLOOD BY AUTOMATED COUNT 63 08/19 Specimen Type: BLOOD No comment entered. Ordering Provider: EDU GOMEZ Report Released Date/Time: Aug 16, 2024 03:45 PM Reporting Lab: [facility] [place] [address] Performing Lab: [facility] DIVISION CBC EOSINOPHIL S/100 LEUKOCYTES IN BLOOD BY AUTOMATED COUNT 7 08/19 Specimen Type: BLOOD No comment entered. Ordering Provider: EDU GOMEZ Report Released Date/Time: Aug 16, 2024 03:45 PM Reporting Lab: [facility] [place] [address] Performing Lab: [facility] DIVISION CBC BASOPHILS/ 100 LEUKOCYTES IN BLOOD BY AUTOMATED COUNT 1 08/19 Specimen Type: BLOOD No comment entered. Ordering Provider: EDU GOMEZ Report Released Date/Time: Aug 16, 2024 03:45 PM Reporting Lab: [facility] [place] [address] Performing Lab: [facility] DIVISION CBC LYMPHOCYTE S [#/VOLUME] IN BLOOD BY AUTOMATED COUNT 2.69 10*3/uL 0.77 - 4.50 08/19 Specimen Type: BLOOD No comment entered. Ordering Provider: EDU GOMEZ Report Released Date/Time: Aug 16, 2024 03:45 PM Reporting Lab: [facility] [place] [address] Performing Lab: [facility] DIVISION CBC MONOCYTES [#/VOLUME] IN BLOOD BY AUTOMATED COUNT 0.90 10*3/uL 0.19 - 0.80 08/19 H Specimen Type: BLOOD No comment entered. Ordering Provider: EDU GOMEZ Report Released Date/Time: Aug 16, 2024 03:45 PM Reporting Lab: [facility] [place] [address] Performing Lab: [facility] DIVISION CBC NEUTROPHIL S [#/VOLUME] IN BLOOD BY AUTOMATED COUNT 8.03 10*3/uL 2.10 - 8.00 08/19 H Specimen Type: BLOOD No comment entered. Ordering Provider: EDU GOMEZ Report Released Date/Time: Aug 16, 2024 03:45 PM Reporting Lab: [facility] [place] [address] Performing Lab: [facility] DIVISION CBC EOSINOPHIL S [#/VOLUME] IN BLOOD BY AUTOMATED COUNT 0.88 10*3/uL 0.00 - 0.60 08/19 H Specimen Type: BLOOD No comment entered. Ordering Provider: EDU GOMEZ Report Released Date/Time: Aug 16, 2024 03:45 PM Reporting Lab: [facility] [place] [address] Performing Lab: [facility] DIVISION CBC BASOPHILS [#/VOLUME] IN BLOOD BY AUTOMATED COUNT 0.09 10*3/uL 0.00 - 0.20 08/19 Specimen Type: BLOOD No comment entered. Ordering Provider: EDU GOMEZ Report Released Date/Time: Aug 16, 2024 03:45 PM Reporting Lab: [facility] [place] [address] Performing Lab: [facility] DIVISION COMPREHEN SIVE METABOLIC PANEL CREATININE [MASS/VOLU ME] IN SERUM OR PLASMA 0.75 mg/dL 0.60 - 1.10 08/19 Specimen Type: PLASMA Comment: No hemolysis noted. Ordering Provider: EDU GOMEZ Report Released Date/Time: Aug 16, 2024 03:45 PM Reporting Lab: [facility] [place] [address] Performing Lab: [facility]1 [facility] [id number] [place] [address] DIVISION COMPREHEN SIVE METABOLIC PANEL UREA NITROGEN [MASS/VOLU ME] IN SERUM OR PLASMA 12.0 mg/dL 9.0 - 25.0 08/19 Specimen Type: PLASMA Comment: No hemolysis noted. Ordering Provider: EDU GOMEZ Report Released Date/Time: Aug 16, 2024 03:45 PM Reporting Lab: [facility] [place] [address] Performing Lab: [facility] DIVISION COMPREHEN SIVE METABOLIC PANEL GLUCOSE [MASS/VOLU ME] IN SERUM OR PLASMA 99 mg/dL 72 - 99 08/19 Specimen Type: PLASMA Comment: No hemolysis noted. Ordering Provider: EDU GOMEZ Report Released Date/Time: Aug 16, 2024 03:45 PM Reporting Lab: [facility] [place] [address] Performing Lab: [facility] DIVISION COMPREHEN SIVE METABOLIC PANEL SODIUM [MOLES/VOL UME] IN SERUM OR PLASMA 139 meq/L 136 - 145 08/19 Specimen Type: PLASMA Comment: No hemolysis noted. Ordering Provider: EDU GOMEZ Report Released Date/Time: Aug 16, 2024 03:45 PM Reporting Lab: [facility] [place] [address] Performing Lab: [facility] DIVISION COMPREHEN SIVE METABOLIC PANEL POTASSIUM [MOLES/VOL UME] IN SERUM OR PLASMA 4.2 meq/L 3.5 - 5.0 08/19 Specimen Type: PLASMA Comment: No hemolysis noted. Ordering Provider: EDU GOMEZ Report Released Date/Time: Aug 16, 2024 03:45 PM Reporting Lab: [facility] [place] [address] Performing Lab: [facility] DIVISION COMPREHEN SIVE METABOLIC PANEL CHLORIDE [MOLES/VOL UME] IN SERUM OR PLASMA 108 meq/L 98 - 107 08/19 H Specimen Type: PLASMA Comment: No hemolysis noted. Ordering Provider: EDU GOMEZ Report Released Date/Time: Aug 16, 2024 03:45 PM Reporting Lab: [facility] [place] [address] Performing Lab: [facility] DIVISION COMPREHEN SIVE METABOLIC PANEL CARBON DIOXIDE, TOTAL [MOLES/VOL UME] IN SERUM OR PLASMA 23 meq/L 22 - 31 08/19 Specimen Type: PLASMA Comment: No hemolysis noted. Ordering Provider: EDU GOMEZ Report Released Date/Time: Aug 16, 2024 03:45 PM Reporting Lab: [facility] [place] [address] Performing Lab: [facility] DIVISION COMPREHEN SIVE METABOLIC PANEL CALCIUM [MASS/VOLU ME] IN SERUM OR PLASMA 8.8 mg/dL 8.4 - 10.4 08/19 Specimen Type: PLASMA Comment: No hemolysis noted. Ordering Provider: EDU GOMEZ Report Released Date/Time: Aug 16, 2024 03:45 PM Reporting Lab: [facility] [place] [address] Performing Lab: [facility] DIVISION COMPREHEN SIVE METABOLIC PANEL PROTEIN [MASS/VOLU ME] IN SERUM OR PLASMA 6.5 g/dL 6.0 - 8.6 08/19 Specimen Type: PLASMA Comment: No hemolysis noted. Ordering Provider: EDU GOMEZ Report Released Date/Time: Aug 16, 2024 03:45 PM Reporting Lab: [facility] [place] [address] Performing Lab: [facility] DIVISION COMPREHEN SIVE METABOLIC PANEL ALBUMIN [MASS/VOLU ME] IN SERUM OR PLASMA 3.8 g/dL 3.4 - 5.0 08/19 Specimen Type: PLASMA Comment: No hemolysis noted. Ordering Provider: EDU GOMEZ Report Released Date/Time: Aug 16, 2024 03:45 PM Reporting Lab: [facility] [place] [address] Performing Lab: [facility] DIVISION COMPREHEN SIVE METABOLIC PANEL BILIRUBIN. TOTAL [MASS/VOLU ME] IN SERUM OR PLASMA 0.1 mg/dL 0.2 - 1.2 08/19 L Specimen Type: PLASMA Comment: No hemolysis noted. Ordering Provider: EDU GOMEZ Report Released Date/Time: Aug 16, 2024 03:45 PM Reporting Lab: [facility] [address] [place] [address] Performing Lab: [facility] #[address] DIVISION COMPREHEN SIVE METABOLIC PANEL ALKALINE PHOSPHATAS E [ENZYMATIC ACTIVITY/V OLUME] IN SERUM OR PLASMA 69 U/L 40 - 150 08/19 Specimen Type: PLASMA Comment: No hemolysis noted. Ordering Provider: EDU GOMEZ Report Released Date/Time: Aug 16, 2024 03:45 PM Reporting Lab: [facility] [place] [address] Performing Lab: [facility] DIVISION COMPREHEN SIVE METABOLIC PANEL ASPARTATE AMINOTRANS FERASE [ENZYMATIC ACTIVITY/V OLUME] IN SERUM OR PLASMA 19 U/L 5 - 34 08/19 Specimen Type: PLASMA Comment: No hemolysis noted. Ordering Provider: EDU GOMEZ Report Released Date/Time: Aug 16, 2024 03:45 PM Reporting Lab: [facility] #[address] [place] [address] Performing Lab: [facility] #[address] COMPREHEN SIVE METABOLIC PANEL ALANINE AMINOTRANS FERASE [ENZYMATIC ACTIVITY/V OLUME] IN SERUM OR PLASMA 25 U/L 8 - 40 08/19 Specimen Type: PLASMA Comment: No hemolysis noted. Ordering Provider: EDU GOMEZ Report Released Date/Time: Aug 16, 2024 03:45 PM Reporting Lab: [facility]1 [place] [address] Performing Lab: [facility] COMPREHEN SIVE METABOLIC PANEL GLOMERULAR FILTRATION RATE/1.73 SQ M.PREDICTE D [VOLUME RATE/AREA] IN SERUM, PLASMA OR BLOOD BY CREATININE -BASED FORMULA (CKD-EPI 2020) 104.44 60 08/19 Specimen Type: PLASMA Comment: No hemolysis noted. Ordering Provider: EDU GOMEZ Report Released Date/Time: Aug 16, 2024 03:45 PM Reporting Lab: [facility] #1 [place] [address] Performing Lab: [facility] #[address] DIVISION ETHANOL SERUM/AGUSTIN SMA (STL) ETHANOL [MASS/VOLU ME] IN SERUM OR PLASMA <10.0mg /dL 0 - 10 08/19 Specimen Type: PLASMA Comment: No hemolysis noted. Ordering Provider: EDU GOMEZ Report Released Date/Time: Aug 16, 2024 03:45 PM Reporting Lab: [facility]1 [place] [address] Performing Lab: [facility] #[address] DIVISION PT/INR NEW ([facility]) PROTHROMBI N TIME (PT) 9.4 s 9.4 - 12.5 08/19 Specimen Type: PLASMA No comment entered. Ordering Provider: EDU GOMEZ Report Released Date/Time: Aug 16, 2024 03:45 PM Reporting Lab: [facility]1 [place] [address] Performing Lab: [facility] #[address] DIVISION PT/INR NEW ([facility]) INR IN PLATELET POOR PLASMA BY COAGULATIO N ASSAY 0.8 {INR} 08/19 Specimen Type: PLASMA No comment entered. Ordering Provider: EDU GOMEZ Report Released Date/Time: Aug 16, 2024 03:45 PM Reporting Lab: [facility]1 [place] [address] Performing Lab: [facility] Vital Signs Combined list of inpatient and outpatient Vital Signs from Department of Defense and Veterans Affairs, ranging from 12 months to all on record, depending upon the facility. Vital Sign Value Date Comments Source SYSTOLIC BLOOD PRESSURE 116 08/31/2024 07:28:04 [facility] DIASTOLIC BLOOD PRESSURE 77 08/31/2024 07:28:04 [facility] PULSE 101 08/31/2024 07:28:04 [facility] SYSTOLIC BLOOD PRESSURE 107 08/22/2024 06:56:18 [facility] DIASTOLIC BLOOD PRESSURE 71 08/22/2024 06:56:18 [facility] PULSE OXIMETRY 96 08/22/2024 06:56:18 [facility] PAIN 0 08/22/2024 06:56:18 [facility] TEMPERATURE 98.1 08/22/2024 06:56:18 [facility] PULSE 94 08/22/2024 06:56:18 [facility] RESPIRATION 20 08/22/2024 06:56:18 [facility] SYSTOLIC BLOOD PRESSURE 138 08/21/2024 06:52:54 [facility] DIASTOLIC BLOOD PRESSURE 83 08/21/2024 06:52:54 [facility] PULSE OXIMETRY 97 08/21/2024 06:52:54 S [facility] PAIN 0 08/21/2024 06:52:54 [facility] TEMPERATURE 98.3 08/21/2024 06:52:54 [facility] PULSE 96 08/21/2024 06:52:54 [facility] RESPIRATION 18 08/21/2024 06:52:54 [facility] SYSTOLIC BLOOD PRESSURE 117 08/20/2024 06:20:03 [facility] DIASTOLIC BLOOD PRESSURE 80 08/20/2024 06:20:03 [facility] PULSE OXIMETRY 97 08/20/2024 06:20:03 S [facility] TEMPERATURE 98 08/20/2024 06:20:03 [facility] PULSE 105 08/20/2024 06:20:03 [facility] RESPIRATION 18 08/20/2024 06:20:03 [facility] SYSTOLIC BLOOD PRESSURE 122 08/19/2024 11:08:09 [facility] DIASTOLIC BLOOD PRESSURE 85 08/19/2024 11:08:09 [facility] PULSE OXIMETRY 98 08/19/2024 11:08:09 S [facility] PAIN 0 08/19/2024 11:08:09 [facility] TEMPERATURE 97 08/19/2024 11:08:09 [facility] PULSE 86 08/19/2024 11:08:09 [facility] RESPIRATION 18 08/19/2024 11:08:09 [facility] Encounters Combined list of: 1) Encounters from Department of [facility] facilities going backup to the last 18 months, not all [place] inpatient encounters are included; 2) Encounters from the Department of [facility] facilities going backup to 280 months. Location Location Details Encounter Type Encounter Number Reason For Visit Attending Provider ADM Date DC Date Status Disposition Source [facility] [facility] [place] [place] OUTPATIENT [id number] hcg MAGGI MEDINA 05/23 Released w/o Limitations [facility] [employer] [place] [facility] [place] TELE CONSULT [id number] breast pain MAGGI MEDINA 07/05 [facility] [facility] [place] [facility] [place] OUTPATIENT [id number] BREAST EXAM TALISHA BORRERO 07/05 Released w/o Limitations [facility] [facility] [place] [employer] [place] TELE CONSULT [id number] Mammogr am order request HOLLEY HEMPHILL 12/05 [facility] [facility] [place] [facility] [place] [place] OUTPATIENT [id number] irregul ar heart beat ADRIAN SUN 12/13 Released w/o Limitations [facility] [facility] [place] [place] [place] TELE CONSULT [id number] test results CORINNE, ADRIAN K 12/14 [place] [facility] [place] OUTPATIENT [id number] lower abdomin al pain JUDIT PHAM Ian 04/03 Released w/o Limitations [place] [facility] [place] [place] OUTPATIENT [id number] pregnan cy test JUDIT PHAM Ian 04/20 Released w/o Limitations [place] [facility] [place] [facility] [place] OUTPATIENT [id number] c/o fatigue NADEEN RHOADES 06/07 Released w/o Limitations [place] [facility] [place] [facility] [place] [place] TELE CONSULT [id number] Lab Result FLORESDIANAAPOORVA P 06/15 [place] [facility] [place] [place] [facility] [facility] [place] OUTPATIENT [id number] Female Exam JUDIT PHAM Ian 06/22 Released w/o Limitations [facility] [facility] [place] [employer] [place] [facility]Opt ometry) OUTPATIENT [id number] eye exam KAYLYNN CASE W 09/11 Released w/o Limitations [employer] [place] ptometr [place] [employer] [place] [facility])(Fam janene Practice Non-GME FHI1) OUTPATIENT [id number] new pt-need s depress ion med filled JEROMY WANG P 09/14 Released w/o Limitations [employer] [place]F amily Practic e Non-GME FHI1) [employer](IEP Hearing Conservat ion) OUTPATIENT [id number] HANNAH DIETZ 12/05 Released w/o Limitations [employer](I EP Hearing Conserv ation) [employer](P Primary Care) OUTPATIENT [id number] allergy brief SAMUEL LONGORIA N 12/05 Released w/o Limitations [employer](I EP Primary Care) [employer]([facility] Post Immunizat ion) OUTPATIENT [id number] IET PPD FÉLIX DOUGLASS 12/06 Released w/o Limitations [employer]([facility] Post Immuniz ation) [employer](PES Optometry -Trainee) OUTPATIENT [id number] JOSE ARMANDO MANRIQUEZ 12/06 Released w/o Limitations [employer](P ES Optomet ry-Mitch nee) [employer]([facility] Post Immunizat ion) OUTPATIENT [id number] IET IMMUNIZ ATIONS JOSE ARMANDO CLIFTON 12/09 Released w/o Limitations [employer]([facility] Post Immuniz ation) [employer](IEP Primary Care) OUTPATIENT [id number] F/U MOT BHANU ACKERMAN 12/11 Released w/o Limitations [employer](I EP Primary Care) [employer](C Ambulator y) OUTPATIENT [id number] RTD HANNAH GRIFFIN 12/14 Released with Work/Duty Limitations [employer](T MC Ambulat ory) [employer]([place] Ambulator y) OUTPATIENT [id number] rtd AMBROSIO DUVAL 12/26 Released w/o Limitations [employer](T MC Ambulat ory) [employer]([place] Ambulator y) OUTPATIENT [id number] ZHANE MEZA 03/12 Released w/o Limitations [employer](T MC Ambulat ory) [employer]([place] Ambulator y) OUTPATIENT [id number] ZHANE MEZA 03/13 Sick at Home/Quarter s [employer](T MC Ambulat ory) [employer]([facility] Immediate Care Clinic) OUTPATIENT [id number] 22 y/o SIT with N/V and dizzine ss times 3 days CLINT WAGNER 03/18 Released with Work/Duty Limitations [employer]([facility] Immedia te Care Clinic) [employer]([facility]) OUTPATIENT [id number] 22yo, Hyperve ntilati on-brou ght by EMS CLINT WAGNER 03/18 Sick at Home/Quarter s [facility] Immedia te Care Clinic) [facility]([place] Ambulator y) OUTPATIENT [id number] AIT SELF HELP LACEY BOSE 04/08 Released with Work/Duty Limitations [facility] Medical [facility](T MC Ambulat ory) [facility]([place] Ambulator y) OUTPATIENT [id number] ZHAO BEE 04/21 Released with Work/Duty Limitations [facility] Medical [facility](T MC Ambulat ory) [place] Provider Support) OUTPATIENT [id number] LBP BRII BARBOURISSA L 06/03 Released w/o Limitations [place] FP Provide r Support ) [place] Provider Support) OUTPATIENT [id number] pap GERI ABREU 06/05 Released w/o Limitations [place] Provide r Support ) [place] Support [facility]) OUTPATIENT [id number] PT ST LOWER BACK PAIN LYNNETTE VALLES 06/10 Released w/o Limitations [place] Divisio n Support [facility]) [place] FP Provider Support) OUTPATIENT [id number] Pt st difficu lty breathi ng ANU BARBOUR L 06/30 [place]ick [place] Home/[place] Provide r Support ) [place]) OUTPATIENT [id number] SHAHZAD FLORES 06/30 [place]ased [place]o Limitations [place] FP Provider Support) OUTPATIENT [id number] cold ANU BARBOUR L 07/04 Released w/o Limitations [place] FP Provide r Support [place] Provider Support) OUTPATIENT [id number] right ankle injury ANU BARBOUR L 07/15 Immediate Referral [place] FP Provide r Support [place]) OUTPATIENT [id number] RICHARDSON LONGO Marina 07/15 [place]ased [place] Limitations [place] OUT[place] [id number] ANKLE; PER ALHAJI PALACIOS 07/17 [place] Limitations [place] OUT[place]IENT [id number] RIGHT FOOT INJURY PER ALHAJI PALACIOS 07/24 [place]ased [place]o Limitations [place] OUTPATIENT [id number] R ALHAJI MARVIN 08/20 [place]ased [place] Limitations [place] Provider Support) OUTPATIENT [id number] sore throat, ear pain ANU BARBOUR L 08/22 Released w/o Limitations [place] [place] Provide r [place] FP Provider Support) OUTPATIENT [id number] Brnchit is concern s HUNTER HDZ 08/25 [place]ick [place] Home[place] [place] Provide r [place] OUT[place]IENT [id number] R FOOT ALHAJI BENTLEY 09/01 Released [place]o Limitations [place] Provider Support) OUTPATIENT [id number] profile update ANU BARBOUR 09/30 Released w/o Limitations [place] FP Provide r [place] FP Provider Support) OUTPATIENT [id number] pap ANU BARBOUR 10/01 Released w/o Limitations [place] FP Provide r [place] OUTPATIENT [id number] ALEXX JETER 10/10 [place]ased [place]itations [place] Provider Support) OUTPATIENT [id number] Left finger injury/ f/u er ANU BARBOUR 10/10 Released w/o Limitations [place] FP Provide r Support [place] Provider Support) OUTPATIENT [id number] right ankle injury ANU BARBOUR 10/22 Released w/o Limitations [place] [place] Provide r Support [place] OUTPATIENT [id number] ALHAJI FARLEY 11/18 Released w[place]o Limitations [place] Provider Support) OUTPATIENT [id number] Back Pain ANU BARBOUR 11/18 Released w/o Limitations [place] [place] Provide r [place] [id number] PT STATES FOR BACK CLASS VJ VICENTE 11/20 [place]ased [place]-Phys[place] Therapy[place] TELE CONSULT [id number] no show DENYS CHRISTIANSON 12/03 [place]) OUTPATIENT [id number] RAVEN CUELLAR 01/04 [place]ased [place]o Limitations [place] OUTPATIENT [id number] DINAH HORTON 01/28 [place]ased [place]itations [place] OUTPATIENT [id number] TD MENESES 02/02 [place]ased [place]o Limitations [place] OUTPATIENT [id number] MONSTER CAZARES 02/06 [place]ased [place]o Limitations [place] OUTPATIENT [id number] Vertigo JOSE ARMANDO IRAHETA 02/25 [place] OUTPATIENT [id number] MAYANK MCNEIL 03/13 [place]ased [place]o Limitations [place] OUTPATIENT [id number] rfu after audio meniers JOSE ARMANDO IRAHETA 03/18 [place]ased [place]o [place] [id number] hearing test per TD Goode 04/08 [place]ased [place]itations [place]Lead [place] OUTPATIENT [id number] RUDDY Lackey 04/15 [place] OUTPATIENT [id number] early gestati on Did not return on Mon to f/u Here today RUDDY JIMENEZ 04/21 [place]ased [place]itations [place] OUTPATIENT [id number] f/u for RUDDY Lackey 04/23 [place]ased [place] Limitations [place] OUTPATIENT [id number] G1 LMP:? QUANT LEVELS- QUANT DRAWN THIS AM RUDDY JIMENEZ 04/29 [place]ased [place]o Limitations [place] OUT[place]IENT [id number] JOSEPH SNOW 05/04 [place]ased [place]/o Limitations [place] OUTPATIENT [id number] MAYANK MCNEIL 05/18 [place]ased [place]itations [place] OUTPATIENT [id number] OSIOT HOU 05/20 [place]ased [place]/o Limitations [place] [facility] Outpatient Encounter [id number] KRISTAL BOLES 10/11 [facility] PSYCH DIAGNOSTIC EVALUATION [id number] Diagnos is: ICD-10- CM F43.12 Post-tr aumatic stress disorde r, chronic [place] RISTINE E 10/26 [facility] PSYTX W PT 60 MINUTES [id number] Diagnos is: ICD-10- CM F43.12 Post-tr aumatic stress disorde r, chronic [place] RISTINE E 11/01 [facility] PSYTX W PT 60 MINUTES [id number] Diagnos is: ICD-10- CM F43.12 Post-tr aumatic stress disorde r, chronic [place] RISTINE E 11/08 [facility] Outpatient Encounter [id number] GARRETT,BUTLERSonal LAGOS A 11/08 [facility] Outpatient Encounter [id number] 11/08 [facility] PSYTX W PT 60 MINUTES [id number] [id number] Diagnos is: ICD-10- CM F43.12 Post-tr aumatic stress disorde r, chronic [place] RISTINE E 11/15 [facility] Outpatient Encounter [id number] 11/22 [facility] PSYTX W PT 60 MINUTES [id number] [id number] Diagnos is: ICD-10- CM F43.12 Post-tr aumatic stress disorde r, chronic [place] RISTINE E 11/29 [facility] PSYTX W PT 60 MINUTES [id number] [id number] Diagnos is: ICD-10- CM F43.12 Post-tr aumatic stress disorde r, chronic [place],CH RISTINE E 12/04 [facility] OFFICE O/P NEW HI 60 MIN [id number] [id number] Diagnos is: ICD-10- CM F60.3 Borderl ine persona lity disorde r BETINA, SHARONA LEEESTHA 12/05 [facility] PSYTX W PT 60 MINUTES [id number] [id number] Diagnos is: ICD-10- CM F43.12 Post-tr aumatic stress disorde r, chronic [place],CH RISTINE E 12/20 [facility] PSYTX W PT 60 MINUTES [id number] [id number] Diagnos is: ICD-10- CM F43.12 Post-tr aumatic stress disorde r, chronic [place] RISTINE E 12/27 [facility] Outpatient Encounter [id number] 01/07 [facility] Outpatient Encounter [id number] 01/07 [facility] PSYTX W PT 60 MINUTES [id number] [id number] Diagnos is: ICD-10- CM F43.12 Post-tr aumatic stress disorde r, chronic [place],CH RISTINE E 01/10 [facility] HC PRO PHONE CALL 11-20 MIN [id number] [id number] Diagnos is: ICD-10- CM F43.12 Post-tr aumatic stress disorde r, chronic Kalin RAWLS P 01/11 [facility] Outpatient Encounter [id number] 01/15 [facility] Outpatient Encounter [id number] [id number] TD MORTENSEN 01/15 [facility] OFFICE O/P EST MOD 30 MIN [id number] [id number] Diagnos is: ICD-10- CM F43.12 Post-tr aumatic stress disorde r, chronic Yuan'SHARONA CANNONA 01/15 [facility] PSYTX W PT 60 MINUTES [id number] [id number] Diagnos is: ICD-10- CM F43.12 Post-tr aumatic stress disorde r, chronic [place] RISTINE E 01/15 [facility] Outpatient Encounter [id number] 01/18 [facility] PSYTX W PT 60 MINUTES [id number] [id number] Diagnos is: ICD-10- CM F43.12 Post-tr aumatic stress disorde r, chronic [place],CH RISTINE E 01/22 [facility] Outpatient Encounter [id number] 01/29 [facility] Outpatient Encounter [id number] [id number] 01/31 [facility] Outpatient Encounter [id number] [id number] 02/04 [facility] PSYTX W PT 60 MINUTES [id number] [id number] Diagnos is: ICD-10- CM F43.12 Post-tr aumatic stress disorde r, chronic [place],CH RISTINE E 02/05 [facility] Outpatient Encounter [id number] [place] RISTINE E 02/12 [facility] Outpatient Encounter [id number] 02/12 [facility] Outpatient Encounter [id number] [id number] [place] RISTINE E 02/13 [facility] PSYTX W PT 60 MINUTES [id number] [id number] Diagnos is: ICD-10- CM F43.12 Post-tr aumatic stress disorde r, chronic [place] RISTINE E 02/19 [facility] Outpatient Encounter [id number] [id number] [place] RISTINE E 02/26 [facility] Outpatient Encounter [id number] [id number] 02/26 [facility] Outpatient Encounter [id number] [id number] [place] RISTINE E 02/27 [facility] Outpatient Encounter [id number] [id number] [place] RISTINE E 02/28 [facility] Outpatient Encounter [id number] [id number] 02/28 [facility] Outpatient Encounter [id number] [id number] [place] RISTINE E 03/05 [facility] Outpatient Encounter [id number] [id number] [place] RISTINE E 03/06 [facility] Outpatient Encounter [id number] [id number] [place] RISTINE E 03/07 [facility] PSYTX W PT 60 MINUTES [id number] Diagnos is: ICD-10- CM F43.12 Post-tr aumatic stress disorde r, chronic [place] E 03/12 [facility] Outpatient Encounter [id number] 03/13 [facility] Outpatient Encounter [id number] [place] R[place] E 03/19 [facility] Outpatient Encounter [id number] 03/19 [facility] Outpatient Encounter [id number] LUKE TUCKER A 03/19 [facility] Outpatient Encounter [id number] 03/21 [facility] Outpatient Encounter [id number] 1 [place] E 03/21 [facility] OFFICE O/P EST MOD 30 MIN [id number] Diagnos is: ICD-10- CM F43.12 Post-tr aumatic stress disorde r, chronic O'SHARONA CANNONA 03/22 [facility] Outpatient Encounter [id number] [place] R[place] E 03/26 [facility] Outpatient Encounter [id number] [place] E 03/27 [facility] Outpatient Encounter [id number] 03/29 [facility] Outpatient Encounter [id number] [place] RISTINE E 04/09 [facility] PSYTX W PT 30 MINUTES 81532-1.65 [id number] 791 Diagnos is: ICD-10- CM F43.12 Post-tr aumatic stress disorde r, chronic DOWNING,CH RISTINE E 04/10 [facility] Outpatient Encounter 18246-2.65 [id number] MEGHAN CELIS Peggy 04/11 [facility] HC PRO PHONE CALL 11-20 MIN 84355-1.65 7PD.512484 791 Diagnos is: ICD-10- CM F12.10 Cannabi s abuse, uncompl icated MEGHAN CELIS Peggy 04/11 [facility] Outpatient Encounter 17768-4.65 [id number].[id number] 569 04/15 [facility] HC PRO PHONE CALL 5-10 MIN 33170-1.65 [id number] Diagnos is: ICD-10- CM F43.10 Post-tr aumatic stress disorde r, 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 AZUL ROSAS 04/15 [facility] HC PRO PHONE CALL 11-20 MIN 09668-1.65 7PD.181796 191 Diagnos is: ICD-10- CM F12.90 Cannabi s use, 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, uncompl icated VERNON MONROY 04/16 [facility] HC PRO PHONE CALL 5-10 MIN 11593-3.65 7PD.[id number] 566 Diagnos is: ICD-10- CM F10.21 Alcohol depende nce, in remissi on AZUL ROSAS 04/16 [facility] ALCOHOL AND/OR DRUG ASSESS 70783-4.65 7PD.329000 288 Diagnos is: ICD-10- CM F12.10 Cannabi s abuse, uncompl icated AZUL ROSAS 04/19 [facility] Outpatient Encounter 93299-8.65 [id number] AZUL ROSAS 04/19 [facility] PRO PHONE CALL 11-20 MIN 19964-7.65 7PD.354770 617 Diagnos is: ICD-10- CM F12.10 Cannabi s abuse, uncompl icated AZUL ROSAS 04/21 [facility] HC PRO PHONE CALL 5-10 MIN 61119-4.65 [id number] 227 Diagnos is: ICD-10- CM Z59.9 Problem related to housing and economi c circums tances, unsp SILVER,[facility] 04/[address] [facility] PSYCHOTHER APY 93995-5.65 7PD.434275 663 Diagnos is: ICD-10- CM F12.10 Cannabi s abuse, uncompl icated CLEMENCIA RAMOS 04/23 [facility] HC PRO PHONE CALL 11-20 MIN 41691-7.65 7PD.535873 090 Diagnos is: ICD-10- CM F12.10 Cannabi s abuse, uncompl icated VERNON MONROY 04/24 [facility] Outpatient Encounter 17307-7.65 [id number] KAM MÉNDEZ Jodie 05/07 [facility]P EST MOD 30 MIN 61500-8.65 [id number] 658 Diagnos is: ICD-10- CM F12.10 Cannabi s abuse, uncompl icated SHARONA MOFFETT 05/22 [facility] N [facility] Outpatient Encounter 32390-6.65 [id number] 05/23 [facility] En[facility] 23349-7.65 [id number] 05/24 [facility] Encounter 01016-4.65 [id number] 05/24 [facility] N [facility] Outpatient Encounter 09928-9.65 [id number] 261 05/27 [facility] Outpatient Encounter 15920-3.65 [id number] 06/11 [facility] Outpatient Encounter 94563-3.65 [id number] 07/23 [facility] Outpatient Encounter 13641-0.65 [id number] 460 08/05 [facility] Outpatient Encounter 72332-0.65 [id number] 956 Diagnos is: ICD-10- CM F12.10 Cannabi s abuse, uncompl icated Ian GOMEZ 08/07 [facility] Outpatient Encounter 98962-4.65 [id number] 08/08 [facility] HC PRO PHONE CALL 5-10 MIN 76844-3.65 [id number] 969 Diagnos is: ICD-10- CM F12.20 Cannabi s depende nce, uncompl icated RAVI BROWNING 08/09 [facility] PROGRAM INTAKE ASSESSMENT 81052-0.65 [id number] 877 Diagnos is: ICD-10- CM F12.20 Cannabi s depende nce, uncompl icated RAVI BROWNING 08/09 [facility] Outpatient Encounter 45917-7.65 [id number] LUKE TUCKER 08/13 [facility] O/P NEW LOW 30 MIN 67094-6.65 [id number] 335 Diagnos is: ICD-10- CM F10.90 Alcohol use, 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, uncompl icated Ian GOMEZ 08/19 [facility] Inpatient Encounter 82482-5.65 [id number] Admit Reason: POLYSUB STANCE DEPENDE NCE Ian GOMEZ 08/19 [facility] Inpatient Encounter 72273-1.65 [id number] Kalin OLMSTEAD 08/19 [facility] PSYCH DIAG EVAL W/MED SRVCS 54349-3.65 [id number] 491 Diagnos is: ICD-10- CM F12.20 Cannabi s depende nce, uncompl icated SEVERADO,A NGELA 08/19 [facility] SELF-HELP/ PEER SVC PER 15MIN 44272-8.65 [id number] 347 Diagnos is: ICD-10- CM F11.90 Opioid use, 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, uncompl icated PURCELLLEEROY R 08/19 [facility] PSYCH DIAG EVAL W/MED SRVCS 55680-0.65 [id number] 419 Diagnos is: ICD-10- CM F12.20 Cannabi s depende nce, uncompl icated HERIBERTO,A NGELA 08/19 [facility]SA SELF-MGMT EDUC/TRAIN 5-8 PT 26237-8.65 7PD.021836 876 Diagnos is: ICD-10- CM F14.90 Cocaine use, 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, uncompl icated KHADRA COKER 08/19 [facility] SELF-MGMT EDUC/TRAIN 5-8 PT 54407-9.65 7PD.554185 760 Diagnos is: ICD-10- CM F11.90 Opioid use, 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, uncompl icated Hao OSPINA 08/19 [facility] Inpatient Encounter 58184-2.65 [id number] 318 Diagnos is: ICD-10- CM F14.90 Cocaine use, 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, uncompl icated Ian GOMEZ 08/20 [facility] Inpatient Encounter 97499-1.65 [id number] 370 Diagnos is: ICD-10- CM F11.90 Opioid use, 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, uncompl icated CLEMENCIA RAMOS 08/20 [facility] ALCOHOL AND/OR DRUG SERVICES 95620-2.65 [id number] 999 Diagnos is: ICD-10- CM F10.90 Alcohol use, 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, uncompl icated MEGHAN CELIS 08/20 [facility] ALCOHOL AND/OR DRUG ASSESS 17577-3.65 7PD.[id number] 435 Diagnos is: ICD-10- CM F12.20 Cannabi s depende nce, uncompl icated AZUL ROSAS 08/20 [facility] GROUP PSYCHOTHER APY 40975-1.65 [id number] 573 Diagnos is: ICD-10- CM F11.90 Opioid use, 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, uncompl icated ORTBALS,CR ISTA 08/20 [facility] ALCOHOL AND/OR DRUG SERVICES 97750-6.65 [id number] 588 Diagnos is: ICD-10- CM F10.90 Alcohol use, 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, uncompl icated VIMALMEGHAN E 08/20 [facility] 23583-1.65 [id number] 348 Diagnos is: ICD-10- CM F12.20 Cannabi s depende nce, uncompl icated LALY BRANCHU ABDELRAHMAN S 08/20 [facility] Inpatient Encounter [id number] AZUL ROSAS 08/20 [facility] SELF-MGMT EDUC/TRAIN 5-8 PT 37985-4.65 7PD.598298 350 Diagnos is: ICD-10- CM F14.90 Cocaine use, 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, uncompl icated Kalin OLMSTEAD 08/20 [facility] SELF-MGMT EDUC/TRAIN 5-8 PT 73630-0.65 7PD.950795 281 Diagnos is: ICD-10- CM F11.90 Opioid use, 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, uncompl icated Hao OSPINA 08/20 [facility] Inpatient Encounter 04091-5.65 [id number] 343 08/21 [facility] Inpatient Encounter 04534-6. [id number] 564 Diagnos is: ICD-10- CM F41.9 Anxiety disorde r, 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 Keyana LOUIS NGELA 08/21 [facility] PUBLIC HEALTH DIRECTOR [employer] 59023-6.65 [id number] 839 Diagnos is: ICD-10- CM Z71.81 Spiritu al or religio us vp & general counsel jayme ARMENTAALBERTO M 08/21 [facility] ALCOHOL AND/OR DRUG SERVICES 77092-7.65 [id number] 965 Diagnos is: ICD-10- CM F12.20 Cannabi s depende nce, uncompl icated AZUL ROSASRENETTA Kalin 08/21 [facility] GROUP PSYCHOTHER APY 71669-5.65 [id number] 500 Diagnos is: ICD-10- CM F12.10 Cannabi s abuse, uncompl icated BACKCLEMENCIA RODRIGUEZ 08/21 [facility] GROUP HEALTH EDUCATION 11877-0.65 [id number] 732 Diagnos is: ICD-10- CM F12.20 Cannabi s depende nce, uncompl icated DANAKeyana QUACH NGELA 08/21 [facility] SELF-MGMT EDUC/TRAIN 5-8 PT 07036-2.65 7PD.067532 514 Diagnos is: ICD-10- CM F11.90 Opioid use, 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, uncompl icated STANLEY,CHR ISTOPHER S 08/21 [facility] SELF-MGMT EDUC/TRAIN 5-8 PT 88112-2.65 7PD.702917 358 Diagnos is: ICD-10- CM F12.10 Cannabi s abuse, uncompl icated VEMULAPALL I-LUCIANAKYLEBETSY 08/21 [facility] PT EDUCATION NOC GROUP 95266-2.65 [id number] 825 Diagnos is: ICD-10- CM F12.10 Cannabi s abuse, uncompl icated BACKESCLEMENCIA 08/22 [facility] PUBLIC HEALTH DIRECTOR [employer] 98959-4.65 [id number] 485 Diagnos is: ICD-10- CM Z71.81 Spiritu al or religio us vp & general counsel ing GEOVANYALBERTO 08/22 [facility] PT EDUCATION NOC GROUP 59015-6.65 [id number] 388 Diagnos is: ICD-10- CM F12.20 Cannabi s depende nce, uncompl icated BACKES,CLEMENCIA Sosa 08/22 [facility] ALCOHOL AND/OR DRUG SERVICES 83188-5.65 [id number] 342 Diagnos is: ICD-10- CM F12.20 Cannabi s depende nce, uncompl icated RALPHDENYSBoston Gagnon 08/22 [facility] ALCOHOL AND/OR DRUG SERVICES 24790-8.65 [id number] 862 Diagnos is: ICD-10- CM F11.90 Opioid use, 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, uncompl icated VERNON MONROY 08/22 [facility] SELF-MGMT EDUC/TRAIN 5-8 PT 50999-4.65 7PD.455747 839 Diagnos is: ICD-10- CM F12.10 Cannabi s abuse, uncompl icated STANLEY,CHR ISTOPHER S 08/22 [facility] SELF-MGMT EDUC/TRAIN 5-8 PT 17161-1.65 7PD.024461 645 Diagnos is: ICD-10- CM F12.10 Cannabi s abuse, uncompl icated VEMULAPALL I-LUCIANABETSY FREED 08/22 [facility] SELF-HELP/ PEER SVC PER 15MIN 17344-6.65 [id number] 336 Diagnos is: ICD-10- CM F12.20 Cannabi s depende nce, uncompl icated WILL SHERIFF 08/23 [facility] GROUP PSYCHOTHER APY 09969-7.65 [id number] 319 Diagnos is: ICD-10- CM F12.20 Cannabi s depende nce, uncompl icated CLEMENCIA RAMOS 08/23 [facility] PSYTX W PT W E/M 30 MIN 05390-7.65 [id number] 210 Diagnos is: ICD-10- CM G47.00 Insomni a, 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 ROOSEVELT TRAN 08/23 [facility] SELF-MGMT EDUC/TRAIN 5-8 PT 60441-8.65 7PD.209295 391 Diagnos is: ICD-10- CM F11.90 Opioid use, 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, uncompl icated Kalin OLMSTEAD 08/23 [facility] SELF-MGMT EDUC/TRAIN 5-8 PT 58522-7.65 7PD.092538 144 Diagnos is: ICD-10- CM F11.90 Opioid use, 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, uncompl icated Hao OSPINA 08/23 [facility] SELF-MGMT EDUC/TRAIN 5-8 PT 53563-1.65 7PD.448084 398 Diagnos is: ICD-10- CM F14.90 Cocaine use, 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, uncompl icated Kalin OLMSTEADEKE 08/24 [facility] SELF-MGMT EDUC/TRAIN 5-8 PT 52148-6.65 7PD.328131 364 Diagnos is: ICD-10- CM F11.90 Opioid use, 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, uncompl icated SLEMODESTA,W ILLIAM J 08/24 [facility] SELF-MGMT EDUC/TRAIN 5-8 PT 47187-4.65 7PD.162490 273 Diagnos is: ICD-10- CM F10.90 Alcohol use, 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, uncompl icated KHADRA COKER 08/25 [facility] PUBLIC HEALTH DIRECTOR [employer] 90709-6.65 [id number] 477 Diagnos is: ICD-10- CM Z71.81 Spiritu al or religio vp & general counsel KAYLAN Hagan 08/25 [facility] ALCOHOL AND/OR DRUG SERVICES 04167-7.65 [id number] 148 Diagnos is: ICD-10- CM F14.90 Cocaine use, 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, uncompl icated BRUNO DAHL P 08/25 [facility] SELF-MGMT EDUC/TRAIN 5-8 PT 61460-9.65 7PD.686992 620 Diagnos is: ICD-10- CM F11.90 Opioid use, 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, uncompl icated SLEYSTERW ILLIAM J 08/25 [facility] ALCOHOL AND/OR DRUG SERVICES 13431-2.65 [id number] 916 Diagnos is: ICD-10- CM F12.20 Cannabi s depende nce, uncompl icated AZUL ROSAS 08/26 [facility] GROUP PSYCHOTHER APY 11856-2.65 [id number] 757 Diagnos is: ICD-10- CM F12.20 Cannabi s depende nce, uncompl icated CLEMENCIA RAMOS 08/26 [facility] OFFICE O/P EST MOD 30 MIN 99758-5.65 [id number] 778 Diagnos is: ICD-10- CM F43.12 Post-tr aumatic stress disorde r, chronic BENSON SHAIKH S 08/26 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 PUBLIC HEALTH DIRECTOR [employer] INDIVIDU 32307-6.65 [id number] 192 Diagnos is: ICD-10- CM Z71.81 Spiritu al or religio us vp & general counsel ALBERTO Evans 08/26 [facility] IVNT GRP 19645-0.65 [id number] 935 Diagnos is: ICD-10- CM F12.20 Cannabi s depende nce, uncompl icated JOEYROMANA PRASAD S L 08/26 [facility] SELF-MGMT EDUC/TRAIN 5-8 PT 73266-4.65 7PD.937372 332 Diagnos is: ICD-10- CM F11.90 Opioid use, 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, uncompl icated MUGOYA,ROS EMARY K 08/26 [facility] IVNT GRP 91261-9.65 [id number] 419 Diagnos is: ICD-10- CM F12.20 Cannabi s depende nce, uncompl icated ROMANA COOK S L 08/27 [facility] GROUP PSYCHOTHER APY 72532-6.65 [id number] 554 Diagnos is: ICD-10- CM F12.20 Cannabi s depende nce, uncompl icated ORTBALS,CR ISTA 08/27 [facility] ALCOHOL AND/OR DRUG SERVICES 44654-9.65 [id number] 737 Diagnos is: ICD-10- CM F12.20 Cannabi s depende nce, uncompl icated DENYS ROSASBoston PRASADRENETTA J 08/27 [facility] SELF-MGMT EDUC/TRAIN 5-8 [place] 50760-2.65 7PD.621502 774 Diagnos is: ICD-10- CM F12.10 Cannabi s abuse, uncompl icated STANLEY,CHR ISTOPHER S 08/27 [facility] SELF-MGMT EDUC/TRAIN 5-8 PT 64902-165 7PD.841011 621 Diagnos is: ICD-10- CM F12.10 Cannabi s abuse, uncompl icated JAMESL Maria C-BETSY CHOWDHURY 08/27 [facility] HLTH BHV IVNTJ GRP 1ST 30 04322-1.65 [id number] 456 Diagnos is: ICD-10- CM F12.20 Cannabi s depende nce, uncompl icated ROMANA COOK L 08/28 [facility] PUBLIC HEALTH DIRECTOR [employer] 05101-2.65 [id number] 743 Diagnos is: ICD-10- CM Z71.81 Spiritu al or religio us vp & general counsel KALYAN Hagan 08/28 [facility] CASE MANAGEMENT 38931-5.65 [id number] 577 Diagnos is: ICD-10- CM F12.10 Cannabi s abuse, uncompl icated BACKES,CLEMENCIA Sosa 08/28 [facility] GROUP PSYCHOTHER APY 75839-3.65 [id number] 012 Diagnos is: ICD-10- CM F12.10 Cannabi s abuse, uncompl icated BACKCLEMENCIA RODRIGUEZ 08/28 [facility] ALCOHOL AND/OR DRUG SERVICES 00063-1.65 [id number] 059 Diagnos is: ICD-10- CM F14.90 Cocaine use, 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, uncompl icated LANDBRUNOJodie ROBERTSON P 08/28 [facility] OFFICE O/P EST SF 10 MIN 42242-5.65 7A0.192435 502 Diagnos is: ICD-10- CM N64.9 Disorde r of breast, 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 Ian GOMEZ 08/28 [facility] SELF-MGMT EDUC/TRAIN 5-8 PT 58589-3.65 7PD.858300 156 Diagnos is: ICD-10- CM F14.90 Cocaine use, 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, uncompl icated HUNTER TOLBERT W 08/28 [facility] SELF-MGMT EDUC/TRAIN 5-8 PT 71806-0.65 7PD.502552 690 Diagnos is: ICD-10- CM F11.90 Opioid use, 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, uncompl icated ANAIW LUCYIAIan J 08/28 [facility] SELF-MGMT EDUC/TRAIN 5-8 PT 09277-7.65 7PD.164342 579 Diagnos is: ICD-10- CM F11.90 Opioid use, 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, uncompl icated ANAI,W KAISER J 08/29 [facility] HLTH BHV IVNTJ GRP 1ST 30 80984-3.65 [id number] 890 Diagnos is: ICD-10- CM F12.20 Cannabi s depende nce, uncompl icated JOEY,CURTI S L 08/30 [facility] PT EDUCATION NOC GROUP 67652-2.65 [id number] 953 Diagnos is: ICD-10- CM F11.90 Opioid use, 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, uncompl icated GIORGIO,PHYLLIS Y A 08/30 [facility] SELF-MGMT EDUC/TRAIN 5-8 PT 64306-5.65 7PD.098027 080 Diagnos is: ICD-10- CM F11.90 Opioid use, 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, uncompl icated HUNTER TOLBERT 08/30 [facility] SELF-MGMT EDUC/TRAIN 5-8 PT 62005-6.65 7PD.830780 473 Diagnos is: ICD-10- CM F11.90 Opioid use, 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, uncompl icated MUGOYAANN 08/30 [facility] SELF-MGMT EDUC/TRAIN 5-8 PT 79689-6.65 7PD.776584 523 Diagnos is: ICD-10- CM F11.90 Opioid use, 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, uncompl icated HUNTER TOLBERT 08/31 [facility] SELF-MGMT EDUC/TRAIN 5-8 PT 06682-5.65 7PD.305804 451 Diagnos is: ICD-10- CM F12.10 Cannabi s abuse, uncompl icated VEMULAPALL Maria C-KYLE CHOWDHURYINE 08/31 [facility] PUBLIC HEALTH DIRECTOR [employer] 70749-6.65 7A0.576698 008 Diagnos is: ICD-10- CM Z71.81 Spiritu al or religio us vp & general counsel ALBERTO Evans 09/01 [facility] PUBLIC HEALTH DIRECTOR [employer] 19839-9.65 [id number] 366 Diagnos is: ICD-10- CM Z71.81 Spiritu al or religio us vp & general counsel KAYLAN Hagan 09/01 [facility] SELF-MGMT EDUC/TRAIN 5-8 PT 11995-6.65 7PD.475821 025 Diagnos is: ICD-10- CM F12.10 Cannabi s abuse, uncompl icated STANLEY,CHR ISTOPHER S 09/01 [facility] SELF-MGMT EDUC/TRAIN 5-8 PT 63288-5.65 7PD.134699 753 Diagnos is: ICD-10- CM F11.90 Opioid use, 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, uncompl icated MUGOYA,ROS EMARY K 09/01 [facility] PUBLIC HEALTH DIRECTOR [employer] 68058-5.65 7A0.549458 788 Diagnos is: ICD-10- CM Z71.81 Spiritu al or religio us vp & general counsel ALBERTO Evans 09/02 [facility] ALCOHOL AND/OR DRUG SERVICES 26563-5.65 [id number] 644 Diagnos is: ICD-10- CM F12.20 Cannabi s depende nce, uncompl icated AZUL ROSAS 09/02 [facility] PUBLIC HEALTH DIRECTOR ASSESSMENT 58604-0.65 [id number] 756 Diagnos is: ICD-10- CM Z71.81 Spiritu al or religio us vp & general counsel ALBERTO Evans 09/02 [facility] ALCOHOL AND/OR DRUG SERVICES 54913-0.65 [id number] 147 Diagnos is: ICD-10- CM F10.90 Alcohol use, 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, uncompl icated MEGHAN CELIS 09/02 [facility] GROUP PSYCHOTHER APY 08594-4.65 [id number] 177 Diagnos is: ICD-10- CM F12.20 Cannabi s depende nce, uncompl icated CLEMENCIA RAMOS 09/02 [facility] ALCOHOL AND/OR DRUG SERVICES 58847-1.65 [id number] 627 Diagnos is: ICD-10- CM F14.90 Cocaine use, 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, uncompl icated BRUNO DAHL 09/02 [facility] SELF-MGMT EDUC/TRAIN 5-8 PT 56109-6.65 7A0.443943 171 Diagnos is: ICD-10- CM Z71.9 [employer] ing, 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 RADHA COOPER 09/02 [facility] IVNTJ GRP 1ST 30 54624-4.65 [id number] 656 Diagnos is: ICD-10- CM F12.20 Cannabi s depende nce, uncompl icated JOEY,CURTI S L 09/02 [facility] SELF-MGMT EDUC/TRAIN 5-8 PT 47105-2.65 7PD.796368 274 Diagnos is: ICD-10- CM F11.90 Opioid use, 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, uncompl icated HUNTER TOLBERT 09/02 [facility] SELF-MGMT EDUC/TRAIN 5-8 PT 24429-9.65 7PD.432498 023 Diagnos is: ICD-10- CM F11.90 Opioid use, 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, uncompl icated Hao OSPINA 09/02 [facility] IVNTJ GRP 1ST 30 69352-3.65 7A0.017127 996 Diagnos is: ICD-10- CM F12.20 Cannabi s depende nce, uncompl icated JOEY,CURTI S L 09/03 [facility] GROUP PSYCHOTHER APY 23268-0.65 [id number] 875 Diagnos is: ICD-10- CM F11.90 Opioid use, 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, uncompl icated ORNELI KILPATRICK ISTA 09/03 [facility] ALCOHOL AND/OR DRUG SERVICES 65377-3.65 [id number] 197 Diagnos is: ICD-10- CM F12.20 Cannabi s depende nce, uncompl icated AZUL ROSAS 09/03 [facility] ALCOHOL AND/OR DRUG SERVICES 31605-7.65 [id number] 074 Diagnos is: ICD-10- CM F12.20 Cannabi s depende nce, uncompl icated AZUL ROSAS 09/03 [facility] SELF-MGMT EDUC/TRAIN 5-8 PT 48463-3.65 [id number] 511 Diagnos is: ICD-10- CM F11.90 Opioid use, 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, uncompl icated SHIRLEY CANNON 09/03 [facility] ALCOHOL AND/OR DRUG SERVICES 28551-3.65 [id number] 774 Diagnos is: ICD-10- CM F12.20 Cannabi s depende nce, uncompl icated AZUL ROSAS 09/03 [facility] ALCOHOL AND/OR DRUG SERVICES 03614-0.65 [id number] 538 Diagnos is: ICD-10- CM F12.20 Cannabi s depende nce, uncompl icated AZ[facility] ROSAS 09[facility]03 [facility] En[facility] [id number] AZUL ROSAS 09/03 [facility] N [facility] Inpatient Encounter 32355-2.65 [id number] Diagnos is: ICD-10- CM R45.851 Suicida l ideatio ns Keyana LOUIS 09/03 [facility] SELF-MGMT EDUC/TRAIN 5-8 PT 24853-4.65 [id number] 986 Diagnos is: ICD-10- CM F11.90 Opioid use, 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, uncompl icated ANN MONTERORY K 09/03 [facility] SELF-MGMT EDUC/TRAIN 5-8 [place] 56258-2.65 [id number] 569 Diagnos is: ICD-10- CM F12.20 Cannabi s depende nce, uncompl icated ANN MONTERORY K 09/03 [facility] IVNTJ GRP 1ST 30 86482-7.65 [id number] 290 Diagnos is: ICD-10- CM F12.20 Cannabi s depende nce, uncompl icated JOEY,LESTERTI S L 09/04 [facility] GROUP THERAPEUTI C PROCEDURES 09730-3.65 [id number] 261 Diagnos is: ICD-10- CM F12.20 Cannabi s depende nce, uncompl icated THERESABIENVENIDO CONROY L 09/04 [facility] DIRECT[facility] [employer] 42108-3.65 [id number] 129 Diagnos is: ICD-10- CM Z71.81 Spiritu al or religio us vp & general counsel jayme ALBERTO ARMENTA 09/04 [facility] OT EVAL LOW COMPLEX 30 MIN 28103-4.65 [id number] 775 Diagnos is: ICD-10- CM F12.20 Cannabi s depende nce, uncompl icated THERESABIENVENIDO CONROY 09/04 [facility] GROUP PSYCHOTHER APY 04981-5.65 [id number] 329 Diagnos is: ICD-10- CM F11.90 Opioid use, 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, uncompl icated ORTBALS,CR ISTA 09/04 [facility] GROUP HEALTH EDUCATION 89757-1.65 [id number] 136 Diagnos is: ICD-10- CM F12.20 Cannabi s depende nce, uncompl icated SEVERADO,A NGELA 09/04 [facility] SELF-MGMT EDUC/TRAIN 5-8 [place] 46120-1.65 [id number] 623 Diagnos is: ICD-10- CM F12.10 Cannabi s abuse, uncompl icated STANLEY,CHR ISTOPHER S 09/04 [facility] SELF-MGMT EDUC/TRAIN 5-8 [place] 64393-6.65 [id number].[id number] 669 Diagnos is: ICD-10- CM F12.20 Cannabi s depende nce, uncompl icated MUGOYA,ROS EMARY K 09/04 [facility] BHV IVNTJ GRP 1ST 30 08750-3.65 [id number] 525 Diagnos is: ICD-10- CM F12.20 Cannabi s depende nce, uncompl icated JOEY,CURTI S L 09/05 [facility] PUBLIC HEALTH DIRECTOR [employer] INDIVIDU 30139-2.65 [id number] 183 Diagnos is: ICD-10- CM Z71.81 Spiritu al or religio us vp & general counsel ALBERTO Evans 09/05 [facility] PT EDUCATION NOC GROUP 80524-6.65 [id number] 514 Diagnos is: ICD-10- CM F11.90 Opioid use, 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, uncompl icated GIORGIO,PHYLLIS Y A 09/05 [facility] ALCOHOL AND/OR DRUG SERVICES 60751-6.65 [id number] 325 Diagnos is: ICD-10- CM F10.90 Alcohol use, 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, uncompl icated AZUL ROSAS J 09/05 [facility] GROUP THERAPEUTI C PROCEDURES 88589-0.65 [id number] 051 Diagnos is: ICD-10- CM Z71.89 Other specifi ed vp & general counsel JESSE Elaine 09/05 [facility] HLTH BHV IVNTJ GRP 23134-1.65 [id number] 007 Diagnos is: ICD-10- CM F12.20 Cannabi s depende nce, uncompl icated JOEY,CURTI S L 09/05 [facility] SELF-MGMT EDUC/TR[place] 5-8 [place] 54264-3.65 [id number].[id number] 193 Diagnos is: ICD-10- CM F12.10 Cannabi s abuse, uncompl icated STANLEY,CHR ISTOPHER S 09/05 [facility] SELF-MGMT EDUC/TRAIN 5-8 [place] 56876-6.65 [id number] Diagnos is: ICD-10- CM F11.90 Opioid use, 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, uncompl icated SHAHZAD AGUSTIN L 09/05 [facility] IVNT GRP 1ST 30 52793-8.65 [id number] Diagnos is: ICD-10- CM F12.20 Cannabi s depende nce, uncompl icated JOEYCURTI S L 09/06 [facility] ALCOHOL AND/OR DRUG SERVICES [id number] [id number] 121 Diagnos is: ICD-10- CM F12.20 Cannabi s depende nce, uncompl icated JASMINASANTOSDENYSBoston PRASADRENETTA J 09/06 [facility] IVNTJ GRP 30 [id number] [id number] 281 Diagnos is: ICD-10- CM F12.20 Cannabi s depende nce, uncompl icated JOEYCURTI S L 09/06 [facility] PS[facility]Y [id number] [id number] Diagnos is: ICD-10- CM F12.10 Cannabi s abuse, uncompl icated CLEMENCIA RAMOS 09/06 [facility] SELF-MGMT EDUC/TRAIN 5-8 [place] 01212-3.65 [id number] 028 Diagnos is: ICD-10- CM F14.90 Cocaine use, 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, uncompl icated Kalin OLMSTEAD FRANCOISE 09/06 [facility] SELF-MGMT EDUC/TRAIN 5-8 [place] 01939-6.65 [id number] 010 Diagnos is: ICD-10- CM F12.20 Cannabi s depende nce, uncompl icated SHAHZAD AGUSTIN L 09/06 [facility] SELF-MGMT EDUC/TRAIN 5-8 [place] [address]-7.65 [id number] 335 Diagnos is: ICD-10- CM F14.90 Cocaine use, 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, uncompl icated Kalin OLMSTEAD FRANCOISE 09/07 [facility] SELF-MGMT EDUC/TRAIN 5-8 [place] 26860-9.65 [id number] 307 Diagnos is: ICD-10- CM F11.90 Opioid use, 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, uncompl icated SHAHZAD AGUSTIN L 09/07 [facility] SELF-MGMT EDUC/TRAIN 5-8 [place] 56193-1.65 [id number] 291 Diagnos is: ICD-10- CM F12.20 Cannabi s depende nce, uncompl icated KHADRA COKER 09/08 [facility] PUBLIC HEALTH DIRECTOR [employer]ILRO[employer] MECHANIC INDIVIDU 84706-5.65 [id number] Diagnos is: ICD-10- CM Z71.81 Spiritu al or religio us vp & general counsel ALBERTO Evans 09/08 [facility] HANNAH Saini [facility] PUBLIC HEALTH DIRECTOR [employer] GROUP [id number] [id number] 528 Diagnos is: ICD-10- CM Z71.81 Spiritu al or religio us vp & general counsel KAYLAN Hagan 09/08 [facility] Inpatient Encounter [id number] [id number] Diagnos is: ICD-10- CM F12.20 Cannabi s depende nce, uncompl icated Keyana LOUIS NGELA 09/08 [facility] SELF-MGMT EDUC/TRAIN 5-8 [place] 780[address]-5.65 [id number] 396 Diagnos is: ICD-10- CM F11.90 Opioid use, 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, uncompl icated Hao OSPINA 09/08 [facility] Outpatient Encounter [id number] [id number] AZUL ROSAS 09/09 [facility] Inpatient Encounter [id number] [id number] Kalin OLMSTEAD 09/09 [facility] Inpatient Encounter [id number] [id number] Diagnos is: ICD-10- CM F12.20 Cannabi s depende nce, uncompl icated HERIBERTO,Keyana NGELA 09/09 [facility] CASE MANAGEMENT [id number] [id number] Diagnos is: ICD-10- CM F12.10 Cannabi s abuse, uncompl icated CLEMENCIA RAMOS 09/09 [facility] Outpatient Encounter [id number] [id number] TD MORTENSEN 09/10 [facility] OFFICE O/P EST HI 40 MIN 50910-8.65 [id number] 758 Diagnos is: ICD-10- CM F43.12 Post-tr aumatic stress disorde r, chronic O'DAVISSHARONA MUIR 09/10 [facility] BHV ASSMT/REAS SESSMENT [id number] [id number] Diagnos is: ICD-10- CM Z63.0 Problem s in relatio nship with spouse or partner GREGBARRON 09/10 [facility] HC PRO PHONE CALL 5-10 MIN [id number] [id number] Diagnos is: ICD-10- CM F12.20 Cannabi s depende nce, uncompl icated AZUL ROSAS 09/10 [facility] HC PRO PHONE CALL 5-10 MIN 68528-3.65 [id number] 232 Diagnos is: ICD-10- CM F11.90 Opioid use, 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, uncompl AZUL Barfield 09/10 [facility] Outpatient Encounter [id number] [id number] 09/11 [facility] HC PRO PHONE CALL 5-10 MIN 78150-0.65 [id number] Diagnos is: ICD-10- CM F12.20 Cannabi s depende nce, uncompl icated AZUL ROSAS 09/12 [facility] HC PRO PHONE CALL 5-10 MIN 86576-7.65 [id number] 045 Diagnos is: ICD-10- CM F12.20 Cannabi s depende nce, uncompl icated AZUL ROSAS 09/17 [facility] HC PRO PHONE CALL 5-10 MIN 58637-5.65 [id number] 472 Diagnos is: ICD-10- CM F12.20 Cannabi s depende nce, uncompl icated AZUL ROSAS Kalin 09/19 [facility] HC PRO PHONE CALL 5-10 MIN 53864-8.65 [id number] Diagnos is: ICD-10- CM F12.20 Cannabi s depende nce, uncompl icated DENYS ROSASBoston SHANICERENETTA Gagnon 09/26 [facility] ALCOHOL AND/OR DRUG SERVICES 63861-3.65 [id number].[id number] 030 Diagnos is: ICD-10- CM F12.20 Cannabi s depende nce, uncompl icated AZUL ROSAS Kalin 10/08 [facility] PH1 ASSMT&MGMT NQHP 5-10 83997-9.65 [id number] 601 Diagnos is: ICD-10- CM F12.20 Cannabi s depende nce, uncompl icated RAVI BROWNING 10/09 [facility] Outpatient Encounter [id number] [id number] 10/09 [facility] Outpatient Encounter [id number] [id number] 10/10 [facility] Outpatient Encounter [id number] [id number] 10/10 [facility] ALCOHOL AND/OR DRUG SERVICES 18152-9.65 [id number] 120 Diagnos is: ICD-10- CM F11.90 Opioid use, 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, uncompl icated VERNON MONROY 10/10 [facility] PUBLIC HEALTH DIRECTOR [employer] INDIVIDU 93405-5.65 [id number] Diagnos is: ICD-10- CM Z71.81 Spiritu al or religio us vp & general counsel ALBERTO Evans 10/13 [facility] PH1 ASSMT&MGMT NQHP 11-20 [id number] [id number] 262 Diagnos is: ICD-10- CM F11.90 Opioid use, 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, uncompl icated VERNON MONROY 10/14 [facility] Outpatient Encounter [id number] [id number] 10/14 [facility] Outpatient Encounter [id number] [id number] 10/15 [facility] CASE MANAGEMENT 17637-9.65 [id number] 148 Diagnos is: ICD-10- CM F60.3 Borderl ine persona lity dischris DAHL AM ROMULO K 10/16 [facility] Outpatient Encounter [id number] [id number] 10/17 [facility] Outpatient Encounter [id number] [id number] 10/17 [facility] CASE MANAGEMENT [id number] [id number] Diagnos is: ICD-10- CM F60.3 Borderl ine persona lity dischris DAHL AM ROMULO K 10/30 [facility] ALCOHOL AND/OR DRUG SERVICES 08378-1.65 [id number] Diagnos is: ICD-10- CM F11.90 Opioid use, 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, uncompl icated VERNON MONROY 10/31 [facility] Outpatient Encounter [id number] [id number] 11/06 [facility] Outpatient Encounter [id number] [id number] LUKE TUCKER YOLIS A 11/06 [facility] Outpatient Encounter 57943-5.65 [id number] LUKE TUCKER YOLIS A 11/07 [facility] ALCOHOL AND/OR DRUG SERVICES 13226-7.65 [id number] 286 Diagnos is: ICD-10- CM F11.90 Opioid use, 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, uncompl icated VERNON MONROY 11/07 [facility] Outpatient Encounter [id number] [id number] 11/08 [facility] Outpatient Encounter [id number] [id number] 11/12 [facility] Outpatient Encounter 42906-7.65 [id number] CHIDI GILLIAM 11/27 [facility] Outpatient Encounter [id number] [id number] 11/29 [facility] Outpatient Encounter [id number] [id number] 12/02 [facility] GROUP PSYCHOTHER APY [id number] [id number] Diagnos is: ICD-10- CM F12.10 Cannabi s abuse, uncompl icated CHIDI GILLIAM SVETA M 12/04 [facility] N [facility] Outpatient Encounter [id number] [id number] 12/11 [facility] Outpatient Encounter [id number] [id number] CHIDI GILLIAM M 12/23 [facility] N [facility] Outpatient Encounter [id number] [id number] 530 GILLIAMCHIDI M 12/25 [facility] DIV[facility] N [facility] Outpatient Encounter [id number] [id number] 445 12/30 [facility] N [facility] Outpatient Encounter [id number] [id number] 01/08 [facility] DIVISIO N [facility] OFFICE O/P EST MOD 30 MIN [id number] [id number] Diagnos is: ICD-10- CM F12.20 Cannabi s depende nce, uncompl icated SHARONA MOFFETT 02/05 [facility] N Procedures Combined list of: 1) [...] OUTPATIENT FACILITY, APPROXIMATELY 20 TO 30 MINUTES [id number] WITH THE PATIENT DoD ACOUSTIC REFLEX TESTING; DECAY DoD INDIVIDUAL PSYCHOTHERAPY, INSIGHT ORIENTED, BEHAVIOR MODIFYING AND/OR SUPPORTIVE, IN AN OFFICE OR OUTPATIENT FACILITY, APPROXIMATELY 45 TO 50 MINUTES [id number] W THE PATIENT; W MED EVAL & MGT SER DoD INDIVIDUAL PSYCHOTHERAPY, INSIGHT ORIENTED, BEHAVIOR MODIFYING AND/OR SUPPORTIVE, IN AN OFFICE OR OUTPATIENT FACILITY, APPROXIMATELY 20 TO 30 MINUTES [id number]-[id number] WITH THE PATIENT DoD INDIVIDUAL PSYCHOTHERAPY, INSIGHT ORIENTED, BEHAVIOR MODIFYING AND/OR SUPPORTIVE, IN AN OFFICE OR OUTPATIENT FACILITY, APPROXIMATELY 75 TO 80 MINUTES [id number]-[id number] W THE PATIENT; W MED EVAL & MGT SER DoD ECHOCARDIOGRAPHY, TRANSTHORACIC, REAL-TIME WITH IMAGE DOCUMENTATION (2D), INCLUDES M-MODE RECORDING, WHEN PERFORMED, FOLLOW-UP OR LIMITED STUDY DoD INJECTION, ATROPINE SULFATE, UP TO 0.3 MG DoD INJECTION, CEFTRIAXONE SODIUM, PER 250 MG [facility] PSYCHIATRIC DIAGNOSTIC INTERVIEW EXAMINATION DoD INDIVIDUAL PSYCHOTHERAPY, INSIGHT ORIENTED, BEHAVIOR MODIFYING AND/OR SUPPORTIVE, IN AN OFFICE OR OUTPATIENT FACILITY, APPROXIMATELY 45 TO 50 MINUTES [id number]-[id number] W THE PATIENT; W MED EVAL & MGT SER [facility] INDIVIDUAL PSYCHOTHERAPY, INSIGHT ORIENTED, BEHAVIOR MODIFYING AND/OR SUPPORTIVE, IN AN OFFICE OR OUTPATIENT FACILITY, APPROXIMATELY 75 TO 80 MINUTES [id number] WITH THE PATIENT [facility] PSYCHIATRIC DIAGNOSTIC INTERVIEW EXAMINATION DoD SUPP &MATERIAL (EXCEPT SPECTACLE),PROVID,[facility]/OTH QUALIFIED HEALTH RAKING MACHINE OPERATOR OVER &ABOVE THOSE USUALLY INCLD W THE OFFICE VISIT/OTH SER RENDERED (LIST DRUG,TRAYS,SUPP,OR MATERIAL PROVID) [facility] INCISION AND DRAINAGE OF ABSCESS (EG, CARBUNCLE, SUPPURATIVE HIDRADENITIS, CUTANEOUS OR SUBCUTANEOUS ABSCESS, CYST, FURUNCLE, OR PARONYCHIA); SIMPLE OR SINGLE [facility] CURRENT TOBACCO SMOKER (CAD, CAP, COPD, PV) (DM) [facility] CURRENT TOBACCO SMOKER (CAD, CAP, COPD, PV) (DM) [facility] INDIVIDUAL PSYCHOTHERAPY, INSIGHT ORIENTED, BEHAVIOR MODIFYING AND/OR SUPPORTIVE, IN AN OFFICE OR OUTPATIENT FACILITY, APPROXIMATELY 45 TO 50 MINUTES [id number] W THE PATIENT; W MED EVAL & MGT SER [facility] POSTOPERATIVE FOLLOW-UP VISIT, NORMALLY INCLUDED IN THE SURGICAL PACKAGE, INDICATE THAT EVALUATION & MANAGEMENT SERVICE WAS PERFORMED DURING A POSTOPERATIVE PERIOD REASON RELATED ORIGINAL PROCEDURE [facility] ELECTROCARDIOGRAM, ROUTINE ECG WITH AT LEAST 12 LEADS; WITH INTERPRETATION AND REPORT [facility] PSYCHIATRIC EVALUATION OF HOSPITAL RECORDS, OTHER PSYCHIATRIC REPORTS, PSYCHOMETRIC AND/OR PROJECTIVE TESTS, AND OTHER ACCUMULATED DATA FOR MEDICALDIAGNOSTIC PURPOSES [facility] APPLICATION OF SHORT LEG CAST (BELOW KNEE TO TOES); [facility] APPLICATION OF SHORT LEG CAST (BELOW KNEE TO TOES); [facility] CRUTCHES UNDERARM, OTHER THAN WOOD, ADJUSTABLE OR FIXED, PAIR, WITH PADS, TIPS AND HANDGRIPS [facility] CURRENT TOBACCO SMOKER (CAD, CAP, COPD, PV) (DM) 008 [facility] CURRENT TOBACCO SMOKER (CAD, CAP, COPD, PV) (DM) 008 [facility] Social Work Individual Outpatient Counseling 20-30 Minutes Social Work Individual Outpatient Counseling 20-30 Minutes 75637 009 SKIP HURT Training case with Eric Rg, Ph.D. [facility] Social Work Individual Outpatient Counseling 45-50 Minutes Social Work Individual Outpatient Counseling 45-50 Minutes 20266 009 SKIP HURT MSE COMPLETED. FORM 699R COMPLETED [facility] Ultrasound Trans-Vaginal [place] [address] 009 JOSEPH SNOW [facility] Health And Behav A e mt Each 15 Min Initial A e ment Health And Behav Assessmt Each 15 Min Initial Assessment 77068 009 CHAYITO FRYE [facility] Ultrasound Trans-[place] [address] 009 RUDDY JIMENEZ F + IU GS with YS and FP [facility] Social Work Individual Outpatient Counseling 20-30 Minutes Social Work Individual Outpatient Counseling 20-30 Minutes 71803 009 YANETH PRADO [facility] Acoustic Reflex Decay Test Acoustic Reflex Decay Test 44991 009 TD PHELAN [facility] Acoustic Reflex Testing 009 TD PHELAN [facility] Tympanometry Tympanometry 17293 009 TD PHELAN [facility] Comprehensive Audiometry Comprehensive Audiometry 31555 009 TD PHELAN [facility] Psychiat Therapy Indiv Appr 45-50 Min W/ Med Eval Managemt Psychiat Therapy Indiv Appr 45-50 Min W/ Med Eval Managemt 45792 009 ALEYDA JACK [facility] Social Work Individual Outpatient Counseling 20-30 Minutes Social Work Individual Outpatient Counseling 20-30 Minutes 92733 009 MINH GUPTA [facility] Psychiat Therapy Indiv Appr 75-80 Min W/ Med Eval Managemt Psychiat Therapy Indiv Appr 75-80 Min W/ Med Eval Managemt 84780 009 MARCIE ALEYDA JOHN [facility] Psychiatric Evaluation Comprehensive Examination Psychiatric Evaluation Comprehensive Examination 55087 009 MINH GUPTA [facility] Psychiat Therapy Indiv Appr 45-50 Min W/ Med Eval Managemt Psychiat Therapy Indiv Appr 45-50 Min W/ Med Eval Managemt 50187 009 ALEYDA JACK [facility] Social Work Individual Outpatient Counseling 75-80 Minutes Social Work Individual Outpatient Counseling 75-80 Minutes 26216 009 ROGE MARTINEZ with multiple issues, needs with hx of no follow through. Multiple services, appts [facility] Psychiatric Evaluation Comprehensive Examination Psychiatric Evaluation Comprehensive Examination 34928 009 ALEXANDRA ANDREWS [facility] -Supervised Services Provision Of Educational Supplies -Supervised Services Provision Of Educational Supplies 23452 009 VJ VICENTE [facility] Physical Medicine - Group Physical Therapy Se ion Physical Medicine - Group Physical Therapy Session 94793 009 VJ VICENTE [facility] Patient Counseling Medical Management Five To Eight Patients Patient Counseling Medical Management Five To Eight Patients 52403 009 JV VICENTE [facility] Psychiat Therapy Indiv Appr 75-80 Min W/ Med Eval Managemt Psychiat Therapy Indiv Appr 75-80 Min W/ Med Eval Managemt 04282 008 CHANDAN KUO [facility] Psychiatric Evaluation Review of Records and Reports Psychiatric Evaluation Review of Records and Reports 53520 008 TD ROBERTS [facility] Psychiat Therapy Indiv Appr 75-80 Min W/ Med Eval Managemt Psychiat Therapy Indiv Appr 75-80 Min W/ Med Eval Managemt 22659 008 TD ROBERTS [facility] Orthopedic Casting Short Leg Orthopedic Casting Short Leg 67737 008 ALHAJI BENTLEY [facility] Orthopedic Casting Short Leg Orthopedic Casting Short Leg 32373 008 ALHAJI BENTLEY [facility] Pulse Oximetry Pulse Oximetry 03911 008 ANU BARBOUR [facility] Intravenous Catheter Placement Intravenous Catheter Placement 60882 008 [place] WAGNER 20 JELCO LEFT AC [facility] Parenteral Fluids IV Infusion For Hydration 008 [place] WAGNER 1 LITER NS [facility] DoD IV Infusion For Hydration Up To 1 Hour 008 ZHANE MEZA [facility] Hepatitis A Vaccine Adult Dosage (Intramuscular Use) Hepatitis A Vaccine Adult Dosage (Intramuscular Use) 21505 008 LEELEE RICH [facility] Vaccines Viral Polio, Inactivated (Salk) Vaccines Viral Polio, Inactivated (Salk) 24968 008 LEELEE RICH [facility] Immunization Administration Each Additional Vaccine 008 LEELEE RICH [facility] Meningococcal Polysaccharide Vaccine (Active) Meningococcal Polysaccharide Vaccine (Active) 93417 008 LEELEE RICH [facility] Td Vaccine Td Vaccine 35178 008 FERNY RICHA Will [facility] Immunization Administration One Vaccine Immunization Administration One Vaccine 36852 008 LEELEE RICH [facility] Visual Function Screening Visual Function Screening 03709 008 JOSE ARMANDO MANRIQUEZ Skin Test Anergy Tuberculin Intradermal Skin Test Anergy Tuberculin Intradermal 75308 008 LEELEE RICH [facility] Immunization Administration One Vaccine Immunization Administration One Vaccine 51432 008 LEELEE RICH [facility] Special Gama Services Analysis Of Computerized Data Special Services Analysis Of Computerized Data 47594 008 HANNAH DIETZ Ear mold/insert, not disposable, any type 008 HANNAH DIETZ Ear Protector Attenuation Measurements Ear Protector Attenuation Measurements 33296 008 HANNAH DIETZ Threshold Audiogram (Pure Tone) Threshold Audiogram (Pure Tone) 08889 008 HANNAH DIETZ Audiometry Group Testing Audiometry Group Testing [address]Supervised Group Educational Services 008 HANNAH DIETZ Ophthalmological New Patient Start Comprehensive Care Ophthalmological New Patient Start Comprehensive Care 08785 006 CASE CHAIDEZ Visual Daniel Test Intermediate Examination Visual Daniel Test Intermediate Examination 55937 006 CASE CHAIDEZ Determination Of Refractive State Determination Of Refractive State 94893 006 CASE CHAIDEZ Social Work Individual Outpatient Counseling 45-50 Minutes Social Work Individual Outpatient Counseling 45-50 Minutes 86413 07/03/2 006 PRINCESS NGUYEN [facility] Psychiatric Therapy Individual Approximately 45-50 Minutes Psychiatric Therapy Individual Approximately 45-50 Minutes 17457 006 JULISA PARDO [facility] Psychiatric Evaluation Comprehensive Examination Psychiatric Evaluation Comprehensive Examination 58711 006 PRINCESS NGUYEN [facility] Test Test 05472 005 MAGGI MEDINA [facility] Social History Combined list of available smoking, tobacco, and other social history from Department of Defense and Veterans Affairs facilities. Social History Type Response Date Comment [facility] e Tobacco smoking status NHIS VA-TOBACCO USE EVERY DAY CIGARETTES 08/19/2024 [facility] History of tobacco use VA-TOBACCO NEVER USED OTHER TYPE 08/19/2024 [facility] This section is an empty social history section. [facility] Plan of Care List of future care activities from Department of Veterans Affairs facilities. Additional future care activities may be listed in the Assessment and Plan section. Date/Time Care Activity Care Activity Detail Facili ty 04/02/2025 AMBULATORY - NONE AM[facility]ULATORY - NONE [facility]
[2025-02-23 11:05] VITALS: BP 126/68; PULSE 100; RESP 20; TEMP 36.7; O2SAT 100
--- NOTE | 2025-02-23 11:37 | ED_ITS ---
HPI - URI/Sore Throat General Chief Complaint: Upper Respiratory Infection Stated Complaint: Cough Time Seen by Provider: 02/23/25 11:25 Source: patient and RN notes reviewed Mode of arrival: ambulatory Limitations: no limitations History of Present Illness HPI Narrative: 39-year-old female presents Express Care complaining of cough and chest congestion for 4 days. Patient reports productive cough and chest congestion over the last 4 days without any relief. Patient also reports feeling wheezy has been using her albuterol inhaler at home frequently. Patient says she is not getting any relief with her albuterol inhaler. Patient said she was recently in the ER proximally 2 months ago for a bronchitis flare up was discharged from the ER with antibiotics and steroids. Patient is a pack-a-day smoker over the last 17 years. Patient has never been diagnosed with COPD or asthma. Patient denies any shortness of breath at rest, shortness of breath with exertion, chest pain, upper respiratory symptoms, fevers, body aches, chills, nausea, vomiting, diarrhea. Related Data Home Medications ?Medication ?Instructions ?Recorded ?Confirmed ?Last Taken ?Type albuterol sulfate 90 mcg/actuation inhalation 02/23/25 Unknown History aerosol inhaler atomoxetine 40 mg capsule mg PO 02/23/25 Unknown History (Strattera) escitalopram oxalate 20 mg tablet mg 02/23/25 Unknown History Allergies Allergy/AdvReac Type Severity Reaction Status Date / Time fluconazole Allergy Intermediate Rash Verified 02/23/25 11:08 sulfamethizole Allergy Intermediate Rash Verified 02/23/25 11:08 sulfamethoxazole Allergy Intermediate rash Verified 02/23/25 11:08 trimethoprim Allergy Intermediate Rash Verified 02/23/25 11:08 Review of Systems Review of Systems: CONSTITUTIONAL: Denies fever, chills, or sweats. EYES: Denies visual changes, redness, or discharge. ENT: Denies rhinorrhea, congestion, sore throat, or otalgia. CARDIOVASCULAR: Denies chest pain, palpitations, or edema. RESPIRATORY: Positive for cough, chest congestion, and wheezing. Negative for dyspnea. GASTROINTESTINAL: Denies abdominal pain, nausea, vomiting, or diarrhea. GENITOURINARY: Denies dysuria or hematuria. SKIN: Denies rash or itching. MUSCULOSKELETAL: Denies back pain, joint pain, or myalgia. NEUROLOGIC: Denies headache, numbness, or weakness. PSYCHIATRIC: Denies anxiety or depression. All other systems reviewed are negative, except as documented in HPI. [facility] Surgical History Surgical History H/O adenoidectomy Hx of tonsillectomy Family History Family History Grandparent Family history of lung cancer Mother Family history of malignant neoplasm of breast in first degree relative Social History Social History Smoking status: Never smoker Alcohol intake: never Comments At the time of my signature, I reviewed and agree with the nursing past medical, surgical, social, and family history. There is no relevant family history pertinent to the patient complaint. Exam Narrative: GENERAL: This is a well-nourished, well-developed adult, in no apparent distress. They are non ill-appearing, nontoxic appearing. Patient appears tired. HEAD: normocephalic, atraumatic. EYES: Sclera clear/white. Conjunctiva normal. Vision is grossly intact. Extraocular movements intact EARS: External ears normal, auditory canals clear and without drainage, TMs normal without perforation. Hearing grossly intact. NOSE: External nose normal with no obvious nasal discharge, nasal turbinates without redness, no rhinorrhea. THROAT: Mucous membranes moist, posterior pharynx clear, without erythema or s welling. Uvula midline. NECK: Neck supple, non-tender without lymphadenopathy, masses or thyromegaly. CARDIOVASCULAR: Regular rate and rhythm without murmurs, gallops, or rubs. RESPIRATORY: And expiratory wheezes heard throughout the lungs. Breath sounds equal bilaterally. No rales or rhonchi. SKIN: warm, Dry, intact with no suspicious lesions or rash, good texture and turgor. NEURO: awake, alert, and oriented to person, place and time. There were no obvious focal neurologic abnormalities. EXTREMITIES: No joint tenderness, effusion, or edema noted. BACK: Nontender without deformity. Course Course Emergency Course: Portions of this record may have been created with voice recognition software Level of Care: Express Care Visit Vital Signs Vital signs: Vital Signs Temperature 98.0 F 02/23/25 11:05 Pulse Rate 100 02/23/25 11:05 Respiratory Rate 20 02/23/25 11:05 Blood Pressure 126/68 02/23/25 11:05 Pulse Oximetry 100 02/23/25 11:05 Oxygen Delivery Room Air 02/23/25 11:05 Temperature 98.0 F 02/23/25 11:05 Pulse Rate 100 02/23/25 11:05 Respiratory Rate 20 02/23/25 11:05 Blood Pressure 126/68 02/23/25 11:05 Pulse Oximetry 100 02/23/25 11:05 Oxygen Delivery Room Air 02/23/25 11:05 Reviewed MDM - URI/Sore Throat MDM Narrative Medical decision making narrative: Chest x-ray showed evidence of pneumonia or any acute findings.. Patient given 2 duo nebulizer treatment with with significant improvement of symptoms. Repeat auscultation the patient's lungs shows diminished wheezing improved aeration throughout the patient's lungs. Patient is in no respiratory distress. Given patient's symptoms is likely she has a purulent bronchitis. Will treat empirically with doxycycline give patient prednisone course. Discussed physical exam findings. Advised supportive measures and signs/symptoms to go to the ER. Pt is appropriate for outpt treatment and f/u. Differential Diagnosis Differential diagnosis: Likely viral infection, bronchitis and other (Pneumonia, COPD, asthma) Imaging Data Radiologist's impression: ITS Impressions Chest X-Ray 02/23/25 12:09 IMPRESSION: No focal infiltrate or effusion. Critical Care Time Critical Care Time Critical Care Time: No Discharge Plan Discharge Clinical Impression: Acute purulent bronchitis Patient Disposition: Home Condition: Stable Instructions: Antibiotic Form, Acute Bronchitis (ED) Additional Instructions: Your chest x-ray was negative for any evidence of pneumonia or acute findings. Please take the antibiotics as directed. Please wear sunscreen while taking doxycycline if you are going to be outside. Please take the prednisone as directed and take it in the morning with food. Have refilled her albuterol inhaler please use as directed. Please follow-up with primary care provider in 3-5 days. You will likely need lung function test to assess for possible COPD or asthma. Please stop smoking. If your breathing problems worsen, he cannot speak in full sentences he developed fevers, chest pain, or any other concerns please go to the ER immediately. Patient Language: Vietnamese Prescriptions: New doxycycline monohydrate 100 mg capsule 100 mg PO BID 5 Days Qty: 10 0RF albuterol sulfate [Ventolin HFA] 90 mcg/actuation HFA aerosol inhaler 2 puff inhalation QID PRN (Reason: shortness of breath or wheezing) Qty: 8.5 0RF prednisone 20 mg tablet 40 mg PO DAILY 5 Days Qty: 10 0RF No Action albuterol sulfate 90 mcg/actuation HFA aerosol inhaler INHALATION escitalopram oxalate 20 mg tablet atomoxetine [Strattera] 40 mg capsule PO Follow-up/Referrals: María,Gita Raza APN [Primary Care Provider] - Time of Disposition: 12:46
[2025-02-23] MEDS: IPRATROPIUM 0.5 MG/ALBUTEROL SULFATE 2.5 MG AMPUL.NEB 3 ML INHALATION ×2 (11:46→12:22)
== END 2025-02-23 12:49 | disposition home or self-care (01) ==
PROVIDERS: PCP Nurse Practitioner Family
DX: J20.9 Acute bronchitis, unspecified (principal); F17.200 Nicotine dependence, unspecified, uncomplicated
CPT/HCPCS: 71046; 94640; 99213; G0463

== ENCOUNTER 2025-09-05 10:19 | Emergency (ER) | payer OTHER, SELFPAY ==
[2025-09-05 10:23] VITALS: BP 118/75; PULSE 105; RESP 16; TEMP 37.1; O2SAT 97
--- NOTE | 2025-09-05 10:25 | ED_ITS ---
HPI - Back Pain/Injury General Chief Complaint: Back Pain/Injury Stated Complaint: lower back pain Time Seen by Provider: 09/05/25 10:21 Source: patient Mode of arrival: ambulatory Limitations: no limitations History of Present Illness HPI Narrative: Shauna is a 40 year old female patient presenting to the clinic today with c/o left sided low back pain x 3 days after moving furniture. Rates pain 8/10- dull/aching. Been taking ibuprofen, ice, and massaging the area. Denies any saddle anesth or loss of bowel/bladder. No current radiation of pain. Related Data Home Medications ?Medication ?Instructions ?Recorded ?Confirmed ?Last Taken ?Type albuterol sulfate 90 mcg/actuation inhalation 02/23/25 Unknown History aerosol inhaler Allergies Allergy/AdvReac Type Severity Reaction Status Date / Time fluconazole Allergy Intermediate Rash Verified 09/05/25 10:24 sulfamethizole Allergy Intermediate Rash Verified 09/05/25 10:24 sulfamethoxazole Allergy Intermediate rash Verified 09/05/25 10:24 trimethoprim Allergy Intermediate Rash Verified 09/05/25 10:24 [facility] Surgical History Surgical History H/O adenoidectomy Hx of tonsillectomy Family History Family History Grandparent Family history of lung cancer Mother Family history of malignant neoplasm of breast in first degree relative Social History Social History Smoking status: Never smoker Alcohol intake: never Comments At the time of my signature, I reviewed and agree with the nursing past medical, surgical, social, and family history. There is no relevant family history pertinent to the patient complaint. Course Course Level of Care: Express Care Visit Vital Signs Vital signs: Vital Signs Temperature 37.1 C 09/05/25 10:23 Pulse Rate 105 H 09/05/25 10:23 Respiratory Rate 16 09/05/25 10:23 Blood Pressure 118/75 09/05/25 10:23 Pulse Oximetry 97 09/05/25 10:23 Oxygen Delivery Room Air 09/05/25 10:23 Temperature 37.1 C 09/05/25 10:23 Pulse Rate 105 H 09/05/25 10:23 Respiratory Rate 16 09/05/25 10:23 Blood Pressure 118/75 09/05/25 10:23 Pulse Oximetry 97 09/05/25 10:23 Oxygen Delivery Room Air 09/05/25 10:23 MDM MDM Narrative Medical decision making narrative: At the time of visit patient is resting comfortably on the exam table. Patient appears to be nontoxic. C/o left sided low back pain x 3 days after moving furniture. Rates pain 8/10- dull/sharp/aching. Been taking ibuprofen, ice, and massaging the area. Denies any saddle anesth or loss of bowel/bladder. No current radiation of pain. She has not taken any medications for her symptoms today. On exam patient has tenderness to palpation over the left paraspinous m usculature/left posterior hip, no bruising or swelling noted, no radiation of pain, full range of motion, straight leg test positive at approximately 30? on the left side, lower muscle strength strong and equal. Offered Toradol 60 mg IM in the clinic and patient accepts. Medications: Toradol 60 mg IM given Plan: I suspect patient has left side low back strain/low back pain. Prescription for baclofen and Medrol Dosepak was sent to the pharmacy. Supportive measures were discussed with the patient and they voiced understanding discharge instructions and agrees to treatment plan. Return pre cautions reviewed Differential Diagnosis Differential Diagnosis: Differential diagnostic considerations for back pain include herniated disc, sciatica, abscess, strain/sprain, discitis, myelitis, fracture, hematoma, cauda equina, osteomyelitis, metastatic and/or primary malignancy, renal colic, pyelonephritis, AAA. Discharge Plan Discharge Clinical Impression: Low back pain Qualifiers: Chronicity: acute Back pain laterality: left Sciatica presence: without sciatica Qualified Code(s): M54.50 - Low back pain, unspecified Patient Disposition: Home Condition: Stable Instructions: Antibiotic Form, Low Back Strain (ED), Acute Low Back Pain (ED), Lower Back Exercises (ED) Additional Instructions: Toradol 60 mg IM given in the clinic today. Take any prescription medication only as prescribed-Medrol Dosepak and baclofen Be mindful of sedation precautions given to you if taking a muscle relaxer. May use heat or ice to the affected area Consider massage or chiropractor adjustment if this was discussed with provider May use blue emu, lidocaine patches, or asper cream to affected area- do not lyla ly heat or ice directly over cream- can cause burn. Complete appropriate back stretching exercises. Follow up with your PCP in 3-5 days if symptom persist. Patient Language: [place] Islander Prescriptions: New methylprednisolone [Medrol (Reid)] 4 mg tablets,dose pack See Rx Instructions PO .COMPLEX Qty: 21 0RF Rx Instructions: orally per package directions baclofen 10 mg tablet 10 mg PO TID PRN (Reason: muscle spasm) 7 Days Qty: 21 0RF No Action albuterol sulfate 90 mcg/actuation HFA aerosol inhaler INHALATION Follow-up/Referrals: María,Gita Raza APN [Primary Care Provider, Unknown] Time of Disposition: 10:37 Quality NIHSS Nursing Documentation ED NIHSS nursing documentation: reviewed/agree
[2025-09-05] MEDS: KETOROLAC (*BKC) 60 MG/2 ML VIAL IM (10:42)
== END 2025-09-05 11:13 | disposition home or self-care (01) ==
PROVIDERS: Emergency Provider Nurse Practitioner Family; PCP Nurse Practitioner Family
DX: M54.50 Low back pain, unspecified (principal)
CPT/HCPCS: 96372; 99213; G0463; J1885

== ENCOUNTER 2025-09-10 13:15 | Emergency (ER) | payer OTHER, SELFPAY ==
[2025-09-10 13:18] VITALS: BP 126/75; PULSE 101; RESP 20; TEMP 36.8; O2SAT 100
--- NOTE | 2025-09-10 13:35 | ED.BACK ---
HPI - Back Pain/Injury General Chief Complaint: Back Pain/Injury Stated Complaint: Back Pain Time Seen by Provider: 09/10/25 13:37 Source: patient, RN notes reviewed and old records reviewed Mode of arrival: ambulatory Limitations: no limitations History of Present Illness HPI Narrative: 40 year old female with complaints of lower back pain in sacrum area with no new injury.. Patient was seen 5 days ago for lower back pain after moving furniture with pain in lower back mainly left side of back and was prescribed Lidocaine patches, Medrol dose pack and Baclofen which patient states she is still taking. Patient reports that she saw her PCP yesterday and is supposed to have uterine ultrasound to rule out female issue for the sacral back pain. Patient reports no radiation of pain down her legs with no tingling or numbness in her legs denies any difficulty with her bowel or bladder function or any saddle paeraesthesia. Patient reports history of DDD to her back. MD elicited complaint: back pain Pertinent past history: other (reports history of DDD in back) Onset (ago): day(s) (initial pain 8 days ago sacral pain for 3 days) Pain scale (0-10): 8 Similar Symptoms Previously: Yes Location: lumbar spine and sacrum Treatments prior to arrival: other (lidocaine patch, Baclofen and medrol dose pack) Related Data Home Medications ?Medication ?Instructions ?Recorded ?Confirmed ?Last Taken ?Type albuterol sulfate 90 mcg/actuation inhalation 02/23/25 Unknown History aerosol inhaler lidocaine 5 % topical patch patch 09/10/25 Unknown History Allergies Allergy/AdvReac Type Severity Reaction Status Date / Time fluconazole Allergy Intermediate Rash Verified 09/10/25 13:23 sulfamethizole Allergy Intermediate Rash Verified 09/10/25 13:23 sulfamethoxazole Allergy Intermediate rash Verified 09/10/25 13:23 trimethoprim Allergy Intermediate Rash Verified 09/10/25 13:23 Review of Systems Review of Systems: CONSTITUTIONAL: Denies fever, chills, or sweats. EYES: Denies visual changes, redness, or discharge. ENT: Denies rhinorrhea, congestion, sore throat, or otalgia. CARDIOVASCULAR: Denies chest pain, palpitations, or edema. RESPIRATORY: Denies cough or dyspnea. GASTROINTESTINAL: Denies abdominal pain, nausea, vomiting, or diarrhea. GENITOURINARY: Denies dysuria or hematuria. SKIN: Denies rash or itching. MUSCULOSKELETAL: Reports lower back pain sacral area today, joint pain, or myalgia. NEUROLOGIC: Denies headache, numbness, or weakness. PSYCHIATRIC: Reports history of anxiety or depression. All systems reviewed & are unremarkable except as noted in HPI and below PMFSH Past Medical History Medical History DDD (degenerative disc disease), lumbar Psoriasis Surgical History Surgical History H/O adenoidectomy Hx of tonsillectomy Family History Family History Grandparent Family history of lung cancer Mother Family history of malignant neoplasm of breast in first degree relative Social History Social History Smoking status: Never smoker Alcohol intake: never Comments At time of signature, agree with nursing past medical, surgical, social and family history. There is no relevant family history pertinent to the presenting complaint Exam Narrative: GENERAL: Well-appearing, well-nourished, and in no acute distress. HEAD: Normocephalic, atraumatic. EYES: PERRLA and EOMI. ENT: Nares clear, no rhinorrhea or epistaxis. Mucous membranes moist.TMs normal throat pink with tonsil absent NECK: Supple.no lymphadenopathy CHEST: Clear to auscultation. No respiratory distress. SAO2 100% on room air HEART: Regular rate and rhythm. No murmur heard. Normal peripheral pulses. ABDOMEN: Soft, nontender, nondistended, normal active bowel sounds. EXTREMITIES: Normal range of motion. No edema.Reports pain to sacral area of back today with no new injury denies any radiation of her pain or any tingling or numbness to legs, reports no saddle paraesthesia or any difficulty with her bowel or bladder function., No SI tenderness on exam, SKIN: Warm, dry, no rash. NEURO: No focal deficits. Alert and oriented x3. Course Course Level of Care: Express Care Visit Vital Signs Vital signs: Vital Signs Temperature 36.8 C 09/10/25 13:18 Pulse Rate 101 H 12/10/25 13:18 Respiratory Rate 20 09/10/25 13:18 Blood Pressure 126/75 09/10/25 13:18 Pulse Oximetry 100 09/10/25 13:18 Oxygen Delivery Room Air 09/10/25 13:18 Temperature 36.8 C 09/10/25 13:18 Pulse Rate 101 H 09/10/25 13:18 Respiratory Rate 20 09/10/25 13:18 Blood Pressure 126/75 09/10/25 13:18 Pulse Oximetry 100 09/10/25 13:18 Oxygen Delivery Room Air 09/10/25 13:18 reviewed MDM MDM Narrative Medical decision making narrative: Exam findings show no acute concerns or changes; patient is non-toxic appearing and is in no distress.? Patient is appropriate for outpatient treatment and follow-up. Discharge instructions reviewed with patient, as well as provided in writing per nursing staff. The instructions also include specific and strict return/GO TO THE ER as well as f/u information. All questions have been answered, and the patient deny any further questions with discharge and discharge plan. Differential Diagnosis Differential Diagnosis: Differential diagnostic considerations for back pain?include?herniated disc, sciatica, abscess, strain/sprain, discitis, myelitis, fracture, hematoma, cauda equina, osteomyelitis, metastatic and/or primary malignancy, renal colic, pyelonephritis, AAA.? Critical Care Time Critical Care Time Critical Care Time: No Discharge Plan Discharge Clinical Impression: Lumbar radiculopathy Patient Disposition: Home Condition: Stable Instructions: Antibiotic Form, Lumbar Radiculopathy (ED) Additional Instructions: Ice and heat to the area for 20-30 minutes Gentle stretching exercises Gentle massage Caution with lifting, bending, stooping, twisting Avoid pushing, pulling take muscle relaxants as directed--caution drowsiness and no driving or alcohol Tylenol arthritis 650 mg one tab every 8 hours for pain while on Toradol He may take the muscle relaxant and anti-inflammatory at the same time Pain medicine as directed for severe pain--caution drowsiness-no driving or alcohol. If this medicine is a narcotic, you can become constipated. He may want to start a laxative right away. Follow-up with your PCP if not improving in 5-7 days If your symptoms persist, change or worsen significantly before you can contact your personal physician then please, without delay, go to the emergency department for further evaluation. Follow-up with PCP in 7-10 days or sooner if needed Patient Language: Pakistani Prescriptions: New ketorolac 10 mg tablet 10 mg PO Q8H PRN (Reason: pain) Qty: 15 0RF Rx Instructions: maximum total duration of 5 days from all oral, intranasal, or parenteral formulations cyclobenzaprine 10 mg tablet 10 mg PO TID PRN (Reason: muscle spasm) Qty: 14 0RF Rx Instructions: do not drive or operate machinery while taking this medication absolutely no alcohol No Action albuterol sulfate 90 mcg/actuation HFA aerosol inhaler INHALATION methylprednisolone [Medrol (Reid)] 4 mg tablets,dose pack See Rx Instructions PO .COMPLEX Qty: 21 0RF Rx Instructions: orally per package directions baclofen 10 mg tablet 10 mg PO TID PRN (Reason: muscle spasm) 7 Days Qty: 21 0RF lidocaine 5 % adhesive patch,medicated Follow-up/Referrals: María,Gita Raza APN [Primary Care Provider, Unknown] Time of Disposition: 13:52 Quality [place] Coma Scale Eyes: Open Verbal: Oriented and Alert Motor: Follows Commands [place] Coma Total Score: 15
== END 2025-09-10 13:58 | disposition home or self-care (01) ==
PROVIDERS: Emergency Provider Registered Nurse; PCP Nurse Practitioner Family
DX: M54.16 Radiculopathy, lumbar region (principal); M51.369 Other intervertebral disc degeneration, lumbar region without mention of lumbar back pain or lower extremity pain; L40.9 Psoriasis, unspecified
CPT/HCPCS: 99213; G0463